=== PATIENT | female | born 1955 | race Caucasian/White ===

== ENCOUNTER 2022-04-03 10:06 | Emergency (ER) | payer MEDICARE, SELFPAY ==
[2022-04-03 10:14] VITALS: BP 149/75; PULSE 84; RESP 16; TEMP 36.3; O2SAT 97; BMI 19.2
--- NOTE | 2022-04-03 10:25 | ED.GENADULT ---
HPI - General Adult General Time Seen by Provider: 10:25 Date Seen: 04/03/22 Chief complaint: Rib Pain Stated complaint: Injured ribs Time Seen by Provider: 04/03/22 10:24 Source: patient, RN notes reviewed and old records reviewed Mode of arrival: ambulatory Limitations: no limitations History of Present Illness HPI narrative: Bella is a very pleasant 66-year-old female with a history of osteoporosis, diabetes, hypertension who comes to the emergency room for evaluation of left rib pain x1 week. Patient notes that she fell in her house and hit the back of her head as well as hit the counter over the left lateral ribcage. She has had pain since that time and actually has been increasing. She states that it hurts when she takes a deep breath both in her left-sided back and left ribcage. Not had a cough or hemoptysis. She has not noticed any blood in her urine. She has tried Tylenol but has not really helped. Movement and deep breathing definitely increases her discomfort. Related Data Home Medications Medication Instructions Recorded Confirmed alendronate 70 mg tablet 70 mg PO .weekly 04/03/22 04/03/22 amlodipine 10 mg tablet 10 mg PO DAILY 04/03/22 04/03/22 atorvastatin 10 mg tablet 10 mg PO DAILY 04/03/22 04/03/22 gabapentin 600 mg tablet 600 - 900 mg PO BID 04/03/22 04/03/22 insulin glargine 100 unit/mL 19 unit subcut HS 04/03/22 04/03/22 subcutaneous solution (Lantus U-100 Insulin) insulin regular human 100 unit/mL 7 - 11 unit subcut TID 04/03/22 04/03/22 injection solution (Novolin R Regular U-100 Insulin) lacosamide 100 mg tablet 100 mg PO BID 04/03/22 04/03/22 levetiracetam 750 mg tablet 750 mg PO BID 04/03/22 04/03/22 lisinopril 10 mg tablet 10 mg PO DAILY 04/03/22 04/03/22 metoprolol succinate 200 mg 200 mg PO DAILY 04/03/22 04/03/22 tablet,extended release 24 hr sertraline 50 mg tablet 50 mg PO DAILY 04/03/22 04/03/22 Allergies Allergy/AdvReac Type Severity Reaction Status Date / Time No Known Drug Allergies Allergy Verified 04/03/22 10:13 Review of Systems Const: Denies: fever or chills ENMT: Reports: ear pain; Denies: throat pain or neck pain Cardio: Reports: chest pain and shortness of breath with exertion (Due to pain with deep breathing); Denies: swelling of feet/ankles Resp: Reports: shortness of breath (Due to pain with deep breathing); Denies: cough, wheezing or coughing up blood GI: Denies: abdominal pain or nausea : Denies: blood in urine Musculo: Reports: back pain; Denies: neck pain or extremity pain Neuro: Denies: headache or numbness in extremities Allergy/Immuno: Denies: wheezing PFSH PFSH Social History Smoking Status: Current every day smoker Do you use any of these nicotine containing products: None Second hand tobacco smoke exposure: No How often do you have a drink containing alcohol: 2-3 times a week How often do you have six or more drinks on one occasion: Never AUDIT-C Alcohol total score: 3 Non-prescribed substance use: denies use service: No Exam Const: Vital Signs, click to edit/add: Vital Signs - 24 hr 04/03/22 10:14 Temperature 97.3 F L Pulse Rate [Pulse Oximeter] 84 Respiratory Rate 16 Blood Pressure [Ri ght Upper Arm] 149/75 H Pulse Oximetry 97 Oxygen Delivery Me thod Room Air Documenting provider has reviewed patient's vital signs: yes Common normals: no apparent distress, oriented x3 and no limitations General appearance: cooperative, well kempt and other (Preferring to remain still.) Nutritional appearance: thin HENMT: Common normals: normocephalic and external nose normal Head and scalp: normocephalic and scalp tenderness (Small nickel sized area of discomfort with mild edema left parietal scalp.) Face and sinus: normal facial exam Nose: external nose normal Eye: Common normals: PERRL General eye: normal appearance of both eyes Pupil: PERRL Neck & C-Spine: Common normals: full ROM General: normal visual inspection; no tenderness Chest: Chest: symmetrical chest wall rise and localized rib tenderness with anteroposterior compression (Left) Location: 5th rib, 6th rib, 7th rib and 8th rib Other: No obvious bruising of chest wall Resp: Common normals: normal respiratory effort and clear to auscultation bilaterally Effort & inspection: able to speak in complete sentences and symmetric chest movement Auscultation: clear to auscultation bilaterally Cardio: Common normals: regular rate and regular rhythm Rate: regular rate Rhythm: regular rhythm Other: Patient has tenderness noted over the posterior ribs at the inferior medial aspect of the scapula around to the lateral aspect and onto the left anterior chest wall. No evidence of ecchymosis. GI: Common normals: soft to palpation and non-tender Palpation: soft : Common normals: no CVA tenderness Bladder/kidney exam: no CVA tenderness Back & Pelvis: Common normals: no CVA tenderness, thoracic and lumbar spine normal to inspection and no thoracic nor lumbar tenderness Extremity: Common normals: normal to inspection Neuro: Common normals: oriented x3 and moves all extremities Psych: Common normals: speech normal Appearance: well kempt Attitude: calm Activity/motor behavior: appropriate eye contact Speech: normal speech Skin: Common normals: no rashes or lesions noted General skin exam: no rashes or lesions noted Course Course Hospital Course: Will order chest and rib x-rays Reevaluation(s) Reevaluation #1: Patient is noted to be sleeping when I enter the room. She states that this is the most comfortable she has been. She was not given any pain medications while here. Vital Signs Vital signs: Initial Vital Signs Temperature 97.3 F L 04/03/22 10:14 Temperature Source Temporal Artery Scan 04/03/22 10:14 Pulse Rate 84 04/03/22 10:14 Respiratory Rate 16 04/03/22 10:14 Blood Pressure 149/75 H 04/03/22 10:14 Blood Pressure Mean 99 04/03/22 10:14 Blood Pressure Position Sitting 04/03/22 10:14 Pulse Oximetry 97 04/03/22 10:14 Oxygen Delivery Method 04/03/22 10:14 Vital Signs Temperature 97.3 F L 04/03/22 10:14 Pulse Rate 84 04/03/22 10:14 Respiratory Rate 16 04/03/22 10:14 Blood Pressure 149/75 H 04/03/22 10:14 Pulse Oximetry 97 04/03/22 10:14 Oxygen Delivery Method 04/03/22 10:14 Temperature 97.3 F L 04/03/22 10:14 Pulse Rate 84 04/03/22 10:14 Respiratory Rate 16 04/03/22 10:14 Blood Pressure 149/75 H 04/03/22 10:14 Pulse Oximetry 97 04/03/22 10:14 Oxygen Delivery Method 04/03/22 10:14 Medical Decision Making MDM Narrative Medical decision making narrative: 1. Left rib injury-patient is noted to have no evidence or fracture. No evidence of underlying pneumothorax. I do explain to patient that plain films often miss a subtle nondisplaced rib fracture. However, this will not change our treatment as patient has no evidence of hypoxia, pneumothorax, underlying pneumonia. Patient denies a history of kidney problems. We will treat with ibuprofen 400 mg every 8 hours as needed for discomfort. For pain not relieved by ibuprofen she may use Vicodin sparingly. [place] 10/3250 tablet p.o. q.4-6 hours p.r.n. 12. Via [employer] meds with no refills. I did explain that this is a constipating medication and patient should use stool softener while using this medicine. It is also sedating and should not be used when driving or if using alcohol. If patient has ongoing symptoms I would ask her to follow up with her primary MD. She may need to undergo CT of the ribs. For onset of new symptoms return to the emergency room. 2. Disposition- home. Discussed breathing exercises with patient using a pillow for splinting. Return as needed. Medical Records Medical records reviewed: Yes I reviewed the patient's medical records Imaging Data Chest x-ray: Attestation: I have reviewed the pertinent imaging results. My impression: No evidence of fracture Radiologist's impression: No evidence of fracture involving the left ribcage. No pneumothorax or pleural effusion. Discharge Plan Discharge Clinical Impression: Rib contusion Patient Disposition: Home, Self-Care Condition: Improved Additional Instructions: Suggest the use of ibuprofen 400 mg every 8 hours as needed for discomfort. You may add [place] sparingly for continued pain. It is important that you practice deep breathing exercises. Use a pillow to help splint the left side of your ribcage. Take deep breaths at the top of every hour while awake. Follow-up with your primary MD if you are not improving. You may need a CT scan of the chest if continued symptoms. You may have a fracture that we are not able to see on the films today. At this time that fracture would not change our treatment plan. Return to the emergency room for worsening symptoms. Prescriptions: No Action alendronate 70 mg tablet 70 mg PO .weekly Label Comments: TAKE 1 TABLET BY MOUTH 1 TIME A WEEK IN THE MORNIGN ON AN EMPTY STOMACH AND WITH A FULL GLASS OF WATER. DO NOT LIE DOWN FOR 1 HOUR. amlodipine 10 mg tablet 10 mg PO DAILY atorvastatin 10 mg tablet 10 mg PO DAILY gabapentin 600 mg tablet 600 - 900 mg PO BID Label Comments: TAKE 1.5 TABLET BY MOUTH AT BEDTIME AND TAKE 1 TABLET BY MOUTH EVERY MORNING insulin glargine [Lantus U-100 Insulin] 100 unit/mL solution 19 unit SUBCUT HS Label Comments: ADMINISTER 19 UNITS UNDER THE SKIN AT BEDTIME Novolin R Regular U-100 Insuln 100 unit/mL solution 7 - 11 unit subcut TID lacosamide 100 mg tablet 100 mg PO BID levetiracetam 750 mg tablet 750 mg PO BID lisinopril 10 mg tablet 10 mg PO DAILY metoprolol succinate 200 mg tablet extended release 24 hr 200 mg PO DAILY sertraline 50 mg tablet 50 mg PO DAILY Follow Up/Referrals: David Sparks MD [Primary Care Provider] - Stand Alone Forms: [employer] Info Instructions
--- NOTE | 2022-04-03 10:37 | CRLHL7_ITS ---
For Patients: As a result of the Cures Act, medical imaging exams and procedure reports are released immediately into your electronic medical record. You may view this report before your referring provider. If you have questions, please contact your health care provider. INDICATION: Patient fell; pain left ribcage. Comparison: None. TECHNIQUE: Three view study chest and left rib cage detail. Findings: No evidence of fracture involving the left ribcage. No pneumothorax or pleural effusion. Dictated by Pari France MD @ 04/03/2022 12:07:06 PM (Electronically Signed)
--- OUTSIDE RECORDS SUMMARY | 2022-04-03 11:07 | XMS_ITS | Encounter Summary ---
:1955 Author Organization [facility] Address [address] [place] [address] Care Team Providers Name Role Phone Elsewhere, Pcp Primary Care Provider Unavailable Reason for Visit Auth/Cert Specialty Diagnoses / Procedures Referred By Contact Refer red To Contact Diagnoses Fracture Radius Colles Closed Initial Right Fracture Radius Colles Closed Initial Right [S52.531A] Procedures [facility] TX RDL & ULNAR FX WO MANIP [facility] TX RDL & ULNAR FX W MANIP VA OPN TX RDL&ULN FX W FIX RAD/ULN VA OPN TX RDL&ULN FX W FIX RAD&ULN VA OPN TX CARPAL SCPHD FX W FIX OPEN REDUCTION INTERNAL FIXATION WRIST-Right Referral ID Status Reason Start Date Expiration Date Visits Requ ested Visits Authorized [id number] 1 1 Encounter Details Date Type Department Care Team Description 05/26/2021 Anesthesia Event [facility] MAIN OR Lorenza Petersen M.D. [address] [place] [address] [address] [place] [phone] (Wo rk) Anesthesia Record Procedure Summary Procedure Name Responsible Anesthesia Start Anesthesia Stop Time Anesthesiologist Time OPEN REDUCTION Lorenza Petersen M.D. 05/26/21 1317 05/26/21 14 50 INTERNAL FIXATION WRIST-Right (Right: Wrist) Events Date Time Event Comment 05/26/2021 1159 1317 An Start Machine/Equipmen t Checked Infection Precautions Foll owed Procedure/Site Verified NPO Sta tus Verified Supine Standard ASA Mon itors Applied 1328 An Pause 1347 An Resume 1351 Turnover to Proceduralist 1402 Proc Start 1403 An Tourn Inflated 250 mm Hg R up per arm 1443 An Tourn Deflated 41 minutes 1444 Turnover to ANE Staff 1446 an stop data 1447 Proc Fin 1450 An End I completed my h andoff to the receiving staff during [facility] we 1. Identified the patient 2. Ident ified the responsible provider 3. Revi ewed the pertinent medical history 4. Discu ssed the surgical course 5. Reviewed intra-o p anesthesia management and issues during an esthesia 6. Set expectations for post-procedure period 7. Allowed opportun ity for questions and acknowledgement of understanding. Name Total midazolam 1 mg/mL injection 2 mg fentaNYL PF injection 50 mcg/mL 50 mcg propofol 10 mg/mL infusion 131.93 mg ropivacaine PF 0.75% injection 14 mL ceFAZolin injection 2,000 mg (ANCEF) 2 g ondansetron PF 4 mg/2 mL injection 4 mg lactated ringers 900 mL Agents No agents on file. Blood No blood administrations on file. Lines, Drains, and Airways Type Details Placement Removal Wound 05/26/21; 1426; Wrist; 05/26/21 1426 by Anterior, Right; Jazmyne Suresh RTamN. strips, 4x4s, webril, plaster splint, tano Peripheral IV Placement Date: 05/26/21; 05/26/21 1120 by 05/26 1550 by Placement Time: 1120; Jeannie Guerrier R.N. Lindell, Glenda R, Catheter Size: 20 G; R.N. Orientation: Anterior, Left; Location: Hand; Site Prep: Chlorhexidine (Preferred); Technique: Anatomical landmarks; Insertion Attempts: 1; Removal Date: 05/26/21; Removal Time: 1550; Removal Reason: Completion of therapy documented in this encounter Social History Tobacco Use Types Packs/Day Years Used Date Smoking Tobacco: Every Day Cigarettes 0.5 Smokeless Tobacco: Never Alcohol Use Standard Drinks/Week Comments Yes 0 (1 standard drink = 0.6 oz pure alcoho l) occas Alcohol Habits Answer Date Recorded How often do you have a drink containing alcohol? Not asked How many drinks containing alcohol do you have on a typical Not asked day when you are drinking? How often do you have six or more drinks on one occasion? No t asked Comment: occas 05/26/2021 Sex Assigned at Date Recorded Not on file documented as of this encounter OR Notes Anesthesia Postprocedure Evaluation - Jak Josue APRN, CRNA, D.N.P. - 05/26/2021 2:53 PMCST Patient: Bella Jones Procedure Summary Date: 05/26/21 Room / Location: [address] 01 [facility] / [facility] - GI Anesthesia Start: 1317 Anesthesia Stop: 1450 Procedure: OPEN REDUCTION INTERNAL FIXATION WRIST-Right (Right Wrist) Diagnosis: Fracture Radius Colles Closed Initial Right (Fracture Radius Colles Closed Initial Right [S52.531A]) Surgeons: Jorden Tineo M.D. Responsible Provider: Lorenza Petersen M.D. Anesthesia Type: regional ASA Status: 3 Anesthesia Type: regional Last vitals Vitals Value Taken Time BP Temp Pulse Resp SpO2 Please reference Vitals flowsheet for most recent vital signs. Anesthesia Post Evaluation Patient Disposition: dismissal Cardiovascular status: hemodynamics (HR & BP) acceptable Respiratory status: patent airway with spontaneous effort Temperature: normothermic Oxygen requirements: room air Level of consciousness: awake Pain score: pain adequately controlled and/or at baseline Post Op nausea/vomiting: none Hydration status: euvolemic HER MACHINE OPERATOR Anesthesia Procedure Notes - Ulisses Posada APRN, CRNA, R.N. - 05/26/2021 1:35 PM CSTAssociated Order(s): Regional Block Regional Block Date/Time: 05/26/2021 1:35 PM Performed by: Ulisses Posada APRN, CRNA, R.N. Authorized by: Ulisses Posada APRN, CRNA, R.N. Location: Pre Op / PACU PROCEDURE DETAILS: Block Indication: primary anesthetic Block Type - Upper extremity: infraclavicular Positioning: supine Laterality: right Block technique: ultrasound guided Ultrasound image guidance used to localize target, identify at risk structures, and dynamically usedto direct therapy to the target. Procedure was performed under sterile conditions.Image(s) acquired and saved Injection technique: single injection Needle type: echogenic Gauge: 20G Length: 10 Test dose: no test dose given Incremental injection of local anesthetic with aspiration every:5cc Pain with needle advancement or injection of local anesthetic: no Injected Medications: Injection(s), anesthetic agent(s) and/or steroid; See [facility] UNIVERSAL PROTOCOL All relevant documentation and testing were reviewed and available. All required blood products, implants, devices and or special equipment were made available as applicable. Pre-procedure verificationwas conducted and the correct site was marked if required. A fire risk assessment was done as applicable. The procedural time-out was conducted prior to performing the procedure and confirmed in a procedural pause. PRE-PROCEDURE DETAILS: Appropriate hand hygiene, gown, cap, mask, protective eyewear, sterile gloves, skin preparation, sterile drape, and strict aseptic technique were utilized as applicable for the procedure.: yes Skin prep: chlorhexidine / alcohol SEDATION / ANESTHESIA Anesthesia method: local infiltration Local infiltrate type: see [facility] for dose POST-PROCEDURE DETAILS: Procedure completed successfully: successful procedure Other complications: none ATTESTATION STATEMENT HER MACHINE OPERATOR Anesthesia Preprocedure Evaluation - Lorenza Petersen M.D. - 05/26/2021 11:58 AM CST Preprocedure Anesthesia & H&P Assessment Procedure Summary Date/Time: 05/26/21 1200 Procedure: OPEN REDUCTION INTERNAL FIXATION WRIST-Right (Right ) Diagnosis: Fracture Radius Colles Closed Initial Right [S52.531A] Pre-op diagnosis: Fracture Radius Colles Closed Initial Right [S52.531A] Location: OR 02 [facility] 401 / [facility] - GI Surgeons: Jorden Tineo M.D. Pertinent components of the patient's history including current problem list, medical history, surgical history, family history, social history, medications and allergies were reviewed. Present illnessand pre-op diagnosis were confirmed. The planned surgery / procedure was verified with the patient /legal guardian. The patient's general health condition remains unchanged RELEVANT COMORBID CONDITIONS CV (+) Hypertension NOS ENDO (+) Diabetes Mellitus Type 2 (HCC) GENETICS (+) Diabetes Mellitus Type 2 (HCC) Other (+) Fracture Radius Colles Closed Initial Right EKG- NSR, Left BBB- no previous EKG to compare. Urgent case, asymptomatic OBJECTIVE PHYSICAL EXAMINATION Airway (HEENT) Mallampati: II TM Distance: >3 FB Neck ROM: Limited Mouth Opening: >3 cm Upper Lip Bite Test Class: II Cardiovascular Rhythm: Regular Rate: Normal Cardiovascular Assessment: cardiovascular normal Functional Capacity: >4 METS Pulmonary Pulmonary Assessment: Clear General / Constitutional Constitutional Assessment: Normal General State of Health:: healthy appearing and calm Neurological Neurologic Assessment:??alert Dental Dental Assessment: dentition intact ASSESSMENT / PLAN ANESTHESIA PLAN ASA: 3 Anesthesia Plan: regional Patient seen and allergies reviewed, anesthesia plan and risks discussed directly with patient /legal guardian or through an vacuum closing machine operator. The use of blood products not discussed Approval to Proceed: approved for anesthesia HER MACHINE OPERATOR documented in this encounter Plan of Treatment Not on filedocumented as of this encounter Procedures Procedure Name Priority Date/Time Associated Comments Diagnosis ANESTHESIA REGIONAL Routine 05/26/2021 1:35 PM Re sults for this BLOCK CRUSHER MACHINE OPERATOR procedure are i n the results section. documented in this encounter Results Regional Block (05/26/2021 1:35 PM CRUSHER MACHINE OPERATOR) Narrative Ulisses Posada APRN, CRNA, R.N. - 05/04 1:35 PM CRUSHER MACHINE OPERATOR Ulisses Posada APRN, CRNA, R.N. ? 05/26/2021 ??1:35 PM Regional Block Date/Time: 05/26/2021 1:35 PM Performed by: Ulisses Posada APRN, CRN A, R.N. Authorized by: Ulisses Posada APRN, CR NA, R.N. Location: Pre Op / PACU PROCEDURE DETAILS: Block Indication: primary anesthetic ?? Block Type - Upper extremity: infraclavi cular Positioning: supine ?? Laterality: right Block technique: ultrasound guided ?? Ultrasound image guidance used to locali ze target, identify at risk structures, and dynamically used to dire ct therapy to the target. Procedure was performed under sterile co nditions.Image(s) acquired and saved Injection technique: single injection Needle type: echogenic Gauge: 20G Length: 10 Test dose: no test dose given ?? Incremental injection of local anestheti c with aspiration every:5cc Pain with needle advancement or injectio n of local anesthetic: no ?? Injected Medications: Injection(s), anes thetic agent(s) and/or steroid; See [facility] UNIVERSAL PROTOCOL All relevant documentation and testing w ere reviewed and available. All required blood products, implants, devic es and or special equipment were made available as applicable. Pre-proced ure verification was conducted and the correct site was marked if required. A fire risk assessment was done as applicable. The procedural time-out w as conducted prior to performing the procedure and confirmed in a procedu ral pause. PRE-PROCEDURE DETAILS: ?? Appropriate hand hygiene, gown, cap, mas k, protective eyewear, sterile gloves, skin preparation, sterile drape, and strict aseptic technique were utilized as applicable for the procedure .: yes ?? Skin prep: chlorhexidine / alcohol SEDATION / ANESTHESIA Anesthesia method: local infiltration Local infiltrate type: see MAR for dose POST-PROCEDURE DETAILS: Procedure completed successfully: succes sful procedure Other complications: none ATTESTATION STATEMENT Ulisses Posada APRN, MICROBIOLOGY SUPERVISOR, R.N. PROCEDURE/MINOR SURGIC AL ORDERABLES documented in this encounter Visit Diagnoses Not on filedocumented in this encounter Administered Medications Inactive Administered Medications - up to 3 most recent administrations Medication Order MAR Action Action Date Dose Rate Site ceFAZolin injection 2,000 mg (ANCEF) Given 05/26/2021 1:59 PM CRUSHER MACHINE OPERATOR 2 g 2,000 mg (rounded from 1,175 mg = 25 mg/kg ? 47 kg), intravenous, Once, On Mon05/26/21 at 1045, For 1 dose, Intra-Op, Preoperatively within 1 hour prior to surgical incision If needed, reconstitute vial per package insert instructions. See IVAG for administration guidelines. , Drug Monitoring Program: Pharmacist to adjust medication dosing based on indication and drug clearance factors., Indications: Prophylaxis, surgical fentaNYL injection (SUBLIMAZE) Given 05/26/2021 1:20 PM CRUSHER MACHINE OPERATOR 50 mcg intravenous, As needed, Starting on Mon05/26/21 at 1320, Anesthesia Intra-op lactated ringers Restarted 05/26/2021 1:47 PM CRUSHER MACHINE OPERATOR 20 mL/hr, intravenous, Continuous, Starting on Mon05/26/21 at 1045 Rate/Dose Verify 05/26/2021 1:17 PM CRUSHER MACHINE OPERATOR 20 mL/hr New Bag 05/26/2021 11:24 AM CRUSHER MACHINE OPERATOR 20 mL/hr 20 mL/hr midazolam (PF) injection (VERSED) Given 05/26/2021 1:20 PM CRUSHER MACHINE OPERATOR 2 mg intravenous, As needed, Starting on Mon05/26/21 at 1320, Anesthesia Intra-op ondansetron (PF) injection (ZOFRAN) Given 05/26/2021 1:52 PM CRUSHER MACHINE OPERATOR 4 mg intravenous, As needed, Starting on Mon05/26/21 at 1352, Anesthesia Intra-op propofol 10 mg/mL infusion Rate/Dose 05/26/2021 2:24 50 mcg/kg/min 1 4.34 (DIPRIVAN) Change PM CRUSHER MACHINE OPERATOR mL/hr intravenous, Continuous Infusion: Per Instructions PRN, Starting on Mon05/26/21 at 1352, Anesthesia Intra-op Rate/Dose Change 05/26/2021 2:10 PM CRUSHER MACHINE OPERATOR 65 mcg/kg/min 18.642 mL/hr New Bag 05/26/2021 1:52 PM CRUSHER MACHINE OPERATOR 75 mcg/kg/min 21.51 mL/hr ropivacaine (PF) 7.5 mg/mL (0.75 %) injection Given 1:23 PM CRUSHER MACHINE OPERATOR 14 mL (NAROPIN) infiltration, As needed, Starting on Mon05/26/21 at 1323, Anesthesia Intra-op documented in this encounter Care Teams Language Pathologist Relationship Specialty Start Date End Date Elsewhere, Pcp PCP - General Family Medicine 03/11/21 documented as of this encounter
--- OUTSIDE RECORDS SUMMARY | 2022-04-03 11:07 | XMS_ITS | Encounter Summary ---
:1955 Author Organization [facility] Address [address] [place] [address] Care Team Providers Name Role Phone Elsewhere, Pcp Primary Care Provider Unavailable Encounter Details Date Type Department Care Team Description 06/09/2021 Hospital Encounter Department of Jenn Roa Fract ure [facility] [place] [place] [facility] [place] [address] [facility] Initial Right [address] [place] [phone] Social History Tobacco Use Types Packs/Day Years [...] on file documented as of this encounter Medications at Time of Discharge Medication Sig Dispensed Refills Start Date End Date alendronate (FOSAMAX) 70 TAKE 1 TABLET BY MOUTH 0 08/20/2018 mg tablet 1 TIME A WEEK IN THE MORNING ON AN EMPTY STOMACH AND WITH FULL GLASS OF WATER. DO NOT LIE DOWN FOR 1 HOUR amLODIPine (NORVASC) 10 Take 10 mg by mouth. 0 mg tablet atenolol (TENORMIN) 100 Take 1 tablet by mouth 0 05/31/2012 mg tablet daily. atorvastatin (LIPITOR) Take 10 mg by mouth. 0 10 mg tablet blood sugar diagnostic TEST FOUR TIMES DAILY 0 (CONTOUR TEST STRIPS) strips calcium Take by mouth. 0 01/21/2008 carbonate-vitamin D3 1,500 mg (600 mg calcium)-200 unit per tablet gabapentin (NEURONTIN) TAKE 1 AND ONE-HALF 0 08/03 600 mg tablet TABLETS BY MOUTH AT BEDTIME AND 1 TABLET EVERY MORNING insulin glargine (LANTUS Inject 17 Units under 0 08/20/2018 U-100 INSULIN) 100 the skin. unit/mL injection insulin regular (NovoLIN Take 7-11 units 0 2018 R Regular U-100 Insuln) subcutaneous three 100 unit/mL injection times daily insulin syringe-needle For administering 0 2018 U-100 0.3 mL 31 gauge x insulin at home. 11/15 syringe lacosamide (VIMPAT) 100 Take 100 mg by mouth 2 0 mg tablet (two) times a day. levETIRAcetam (KEPPRA) Take 250 mg by mouth 2 0 0 09/28/2013 250 mg tablet (two) times a day. levETIRAcetam (KEPPRA) Take 750 mg by mouth. 0 750 mg tablet lisinopril Take 10 mg by mouth. 0 01/23/2018 (PRINIVIL,ZESTRIL) 20 mg tablet metoprolol succinate Take 200 mg by mouth. 0 10/02 (TOPROL-XL) 200 mg 24 hr tablet ondansetron ODT Take 1 tablet (4 mg 10 tablet 0 05/27/2021 (ZOFRAN-ODT) 4 mg total) by mouth every disintegrating tablet 12 (twelve) hours. oxyCODONE (ROXICODONE) 5 Take 1 tablet (5 mg 20 tablet 0 mg immediate release total) by mouth every 6 tabletIndications: (six) hours as needed Prolonged Acute for pain Indication: Pain/Traumatic Injury Prolonged Acute Pain/Traumatic Injury. sertraline (ZOLOFT) 50 Take 50 mg by mouth. 0 mg tablet traZODone (DESYREL) 50 TAKE 2 TABLETS BY MOUTH 0 10/23/2018 mg tablet AT BEDTIME documented as of this encounter Plan of Treatment Not on filedocumented as of this encounter Procedures Procedure Name Priority Date/Time Associated Comments Diagnosis DX WRIST RIGHT 3+ RAD - Routine 06/09/2021 1:11 Fracture Radius Res ults for this VIEWS (most inpatients PM BUILDING PRINCIPAL Colles Closed procedure are in and all Initial Right the results outpatients) section. documented in this encounter Results DX Wrist Right 3+ Views (06/09/2021 1:11 PM BUILDING PRINCIPAL) Anatomical Region Laterality Modality Upper Extremity, Wrist, Musculoskeletal RST LOS, Right Digital Radiography Musculoskeletal ARZ LOS, Muskuloskeletal FLA LOS Specimen (Source) Anatomical Collection Method Collection Time Re ceived Time Location / / Volume Laterality 06/09/2021 1:13 PM BUILDING PRINCIPAL Impressions 06/09/2021 1:17 PM BUILDING PRINCIPAL Volar plate and screw fixation across a comminuted minimally displaced transverse fracture of the dis leonides right radial metaphysis which extends into the distal radioulnar joint . No hardware failure. Fracture line is still visible. Displaced ulnar styloid f racture. Demineralization. Changes of ulnolunate abutment. Soft tissue swellin g right wrist. Narrative 06/09/2021 1:17 PM BUILDING PRINCIPAL EXAM: ??DX WRIST RIGHT 3+ VIEWS Procedure Note Ulisses Lane M.D. - 06/09/2021Forma tting of this note might be different from the original. EXAM: DX WRIST RIGHT 3+ VIEWS IMPRESSION: Volar plate and screw fixation across a comminuted minimally displaced transverse fracture of the dis leonides right radial metaphysis which extends into the distal radioulnar joint . No hardware failure. Fracture line is still visible. Displaced ulnar styloid f racture. Demineralization. Changes of ulnolunate abutment. Soft tissue swellin g right wrist. [facility] RIGOBERTO documented in this encounter Visit Diagnoses Diagnosis Fracture Radius Colles Closed Initial Ri ght documented in this encounter Care Teams Freight Tallier Relationship Specialty Start Date End Date Elsewhere, Pcp PCP - General Family Medicine 03/11/21 documented as of this encounter
--- OUTSIDE RECORDS SUMMARY | 2022-04-03 11:07 | XMS_ITS | Encounter Summary ---
:1955 Author Organization [facility] Address [address] [place] [id number] Care Team Providers Name Role Phone Elsewhere, Pcp Primary Care Provider Unavailable Reason for Visit Physical Therapy (Routine) - Authorized Specialty Diagnoses / Procedures Referred By Contact Refer red To Contact Diagnoses Fracture Radius Colles Closed Initial [facility] Jenn Roa, P.A.-C. Formerly [facility] Procedures PT Evaluate and treat [address] [place] [phone] Referral ID Status Reason Start Date Expiration Date Visits V isits Requested Authorized [id number] Authorized 07/07/2021 07/07/2022 99 99 Encounter Details Date Type Department Care Team Description 07/23/2021 Comprehensive Visit Department of Jenn Roa, P.A.-C. [address] [place] [phone] Fracture Radius Rehabilitation Ama Grady, O.TTam Colles Closed Services in [address] [phone] Social History Tobacco Use Types Packs/Day Years [...] on file documented as of this encounter Consult Notes Ama Grady O.T. - 07/23/2021 11:00 AM CST Occupational Therapy Outpatient Evaluation/Treatment By co-signing this note, the provider certifies the therapy being provided to this patient is reasonable and necessary for the diagnosis or treatment of this patient. SUBJECTIVE Patient's Name: Bella Jones Referring Provider: Jenn Roa P.A.-C. Visit Diagnosis: 1. Fracture Radius Colles Closed Initial Right Reason for Referral: Skilled OT necessary to decreased wrist range and strength following wrist fracture s/p ORIF on 05/26 Onset Date: 05/23/2021 Payor: MEDICARE / Plan: MEDICARE A AND B / Product Type: Medicare / Visit Count: Visit count could not be calculated. Make sure you are using a visit which is associated with an episode. PERTINENT MEDICAL / SURGICAL HISTORY: Patient Active Problem List Diagnosis ??? Fracture Radius Colles Closed Initial Right ??? Hypertension NOS ??? Diabetes Mellitus Type 2 (HCC) Past Surgical History: Procedure Laterality Date ??? CATARACT EXTRACTION AND INSERTION OF INTRAOCULAR LENS N/A 05/31/2012 Cataract extraction and insertion of intraocular lens ??? CATARACT EXTRACTION AND INSERTION OF INTRAOCULAR LENS N/A 06/14/2012 Cataract extraction and insertion of intraocular lens ??? OPEN REDUCTION INTERNAL FIXATION WRIST Right 05/26/2021 Procedure: OPEN REDUCTION INTERNAL FIXATION WRIST-Right; Surgeon: Jorden Tineo M.D.; Location: [facility] OR Bella Jones is a 66 y.o. female who presents to outpatient occupational therapy for evaluation. Her symptoms consist of: 1. R wrist pain and decreased ROM Overall she reports her status is improving . History of Present Illness:She had fall tripping up a stair resulting in R distal radius fracture and avulsion fracture of ulnar styloid with ORIF repair on 05/26 Previous Treatments: no previous treatment Prior Function/Occupational Profile: Patient is retired Family/Caregiver Present: No Patient goals:to regain use of wrist Patient Comments: it only hurts when I move it certain ways Precautions Other Precautions: avoid heavy lifting and weight bearing Contact monitoring: PPE used during therapy: Therapist was wearing the following PPE throughout entire session: surgicalmask and eye protection OBJECTIVE REVIEW OF SYSTEMS PHYSICAL EXAM Pain: No complaints at rest; she reports with certain motions it can increase to 5/10 but doesn't stay there Ortho Exam Her right wrist flexion is 52 degrees Her right wrist extension is 52 degrees Her right ulnar deviation is 3 degrees Her right radial deviation is 5 degrees R rural sociologist is 13# and L rural sociologist is 32# Education and completion of active wrist exercises including wrist flex/ext, R/U dev, and pron/sup with cues to hold at end range and passively stretch using her L hand. She was also given red theraputty and blue foam for hand strengthening. She is hypersensitive over R scar area so educated and completed desensitization techniques. Talked through her efforts to wean out of brace. At this time, recommend she uses when being more active like cooking or cleaning but not at other times while awake. She tried not wearing last night tobed and says she was up 15 times and found it difficult to sleep. Recommend she starts the night without it and keeps next to her bed so she can put it on if it wakes her up but feel she needs to continue to wean. Home Exercise Program/Education: putty and foam hand strengthening, A/AAROM for R wrist, desensitization for R forearm Assessment Clinical Impression: Ms. Jones presents to occupational therapy with signs and symptoms consistent with R wrist weakness following fracture Impairments: She exhibits decreased active range of motion and weakness and pain with use. She is highly sensitive over scar area Rehab Potential: Ms. Jones has excellent potential to achieve established occupational therapy goals within the time frame outlined below, provided she actively participates in her occupational therapy treatment plan and home program. Occupational Profile and History review: Brief Performance Deficits: 1 - 3 performance deficits Evaluation Complexity: Low Functional Goals and Timeframes: OT Goal #1: Patient will increase wrist ROM by 10 degrees to increase functional use with self cares OT Goal #1 Date: 08/20/21 OT Goal #2: Patient will increase hand strength by 10# to increase functional use with self cares OT Goal #2 Date: 08/20/21 Plan Ms. Jones was educated regarding evaluative findings, diagnosis, prognosis, potential risks and benefits of rehabilitation interventions. A collaborative effort was used to establish goals and plan of care. She was informed of her right to make decisions regarding her care, including refusal of examination or treatment or selection of services from another provider if desired. The treatment plan may be progressed or modified based upon her response to treatment. Treatment Plan: Start of Plan of Care: 07/23/2021 OT Next Certification Date: 10/21/21 OT Frequency: 1 time per week Treatment interventions may include: Treatment Interventions: Therapeutic exercise, Manual therapy. Plan for next session: assess range and strength and increase HEP challenge as able. Plan: Plan of care initiated Occupational Therapy Attestation Statement: Patient agrees with the plan of care and goals. Time Spent with Patient OT Eval - Low Complexity : 26 min Therapeutic Exercise (min): 21 min Time Calculation Total Timed Units (min): 21 min Total Treatment Time (min): 47 [address] FORM MAKER documented in this encounter Plan of Treatment Not on filedocumented as of this encounter Visit Diagnoses Diagnosis Fracture Radius Colles Closed Initial Ri ght documented in this encounter Care Teams Hay Buckler Relationship Specialty Start Date End Date Elsewhere, Pcp PCP - General Family Medicine 03/11/21 documented as of this encounter
--- OUTSIDE RECORDS SUMMARY | 2022-04-03 11:07 | XMS_ITS | Encounter Summary ---
:1955 Author Organization [facility] Address [address] [place] [address] Care Team Providers Name Role Phone Elsewhere, Pcp Primary Care Provider Unavailable Reason for Visit Auth/Cert Specialty Diagnoses / Procedures Referred By Contact Refer red To Contact Diagnoses Fracture Radius Colles Closed Initial Right Fracture Radius Colles Closed Initial Right [S52.531A] Procedures [place] CLSD TX RDL & ULNAR FX WO MANIP MI CLSD TX RDL & ULNAR FX W MANIP MI OPN TX RDL&ULN FX W FIX RAD/ULN MI OPN TX RDL&ULN FX W FIX RAD&ULN MI OPN TX CARPAL SCPHD FX W FIX OPEN REDUCTION INTERNAL FIXATION WRIST-Right Referral ID Status Reason Start Date Expiration Date Visits Requ ested Visits Authorized [id number] 1 1 Encounter Details Date Type Department Care Team Description 05/26/2021 Surgery [facility] MAIN OR Jorden Tineo, OPEN REDUCTION INTERNAL [address]URICE M.D. [place] [phone] [phone] [place] [address] (Wo rk) Social History Tobacco Use Types Packs/Day Years [...] on file documented as of this encounter Last Filed Vital Signs Vital Sign Reading Time Taken Comments Blood Pressure 137/68 05/26/2021 11:11 AM FILL PLANT OPERATOR Pulse 64 05/26/2021 11:11 AM FILL PLANT OPERATOR Temperature 36.1 ??C (97 ??F) 05/26/2021 11:11 AM FILL PLANT OPERATOR Respiratory Rate 16 05/26/2021 11:11 AM FILL PLANT OPERATOR Oxygen Saturation 100% 05/26/2021 11:11 AM FILL PLANT OPERATOR Inhaled Oxygen Concentration - - Weight 47.8 kg (105 lb 6.1 oz) 05/26/2021 11:11 AM FILL PLANT OPERATOR Height - - Body Mass Index 19.27 05/14/2021 4:46 PM FILL PLANT OPERATOR documented in this encounter Medications at Time of Discharge [...] 10/02 (TOPROL-XL) 200 mg 24 hr tablet oxyCODONE (ROXICODONE) 5 Take 1 tablet (5 [...] AT BEDTIME documented as of this encounter H&P Notes Jorden Tineo M.D. - 05/26/2021 12:04 PM CST INTERVAL HISTORY AND PHYSICAL PRE-PROCEDURE UPDATE H&P reviewed. The patient was examined and there are no significant changes to the H&P. The risks, benefits, and alternatives to the planned procedure were discussed in detail, including the risk of exposure to COVID-19 within the facility. All questions pertaining to the procedure and these risks were answered and the patient agreed to proceed. Jorden Tineo M.D. PLANT OPERATOR Source Note - Lorenza Petersen M.D. - 05/26/2021 11:58 AM FILL PLANT OPERATOR Preprocedure Anesthesia & H&P Assessment Procedure Summary Date/Time: 05/26/211199 Procedure: OPEN REDUCTION INTERNAL FIXATION WRIST-Right (Right ) Diagnosis: Fracture Radius Colles Closed Initial Right [S52.531A] Pre-op diagnosis: Fracture Radius Colles Closed Initial Right [S52.531A] Location: OR 02 [facility] 01 [facility] - GI Surgeons: Jorden Tineo M.D. Pertinent [...] (+) Fracture Radius Colles Closed Initial Right OBJECTIVE PHYSICAL EXAMINATION Airway (HEENT) Mallampati: II [...] with patient /legal guardian or through an certified court/medical interpreter. The use of blood products not discussed Approval to Proceed: approved for anesthesia PLANT OPERATOR documented in this encounter OR Notes Op Note - Jorden Tineo M.D. - 05/26/2021 2:33 PM CST PRE-OPERATIVE DIAGNOSIS Intra-articular 3-part right metaphyseal distal radius fracture. POST-OPERATIVE DIAGNOSIS Intra-articular 3-part right metaphyseal distal radius fracture. PROCEDURE: Open reduction internal fixation right 3-part distal radius fracture intra-articular. SURGEON: Jorden Tineo M.D. IMPLANTS: [employer] volar locking plate. FINDINGS The patient did have an intra-articular fracture that was treated with a volar locking plate to stabilization. COMPLICATIONS None. DESCRIPTION OF PROCEDURE Bella is a 65-year-old female, right-hand dominant, who had a fall about 10 days ago, sustaining a fracture to her right distal radius that was intra-articular and comminuted, 3 parts. This was treated with closed reduction. However, reduction still did showed dorsal metaphyseal comminution and some drift with continued angulation and impaction. Discussion was had with the patient about continued conservative management versus surgical intervention. After risks and benefits were discussed, she desired to proceed forward with a surgical procedure. The patient as identified in the preoperative holding area. All questions were answered. Her right wrist was marked with an indelible marking pen. Consent was reviewed and signed. She was brought back to the block area where Anesthesia performed a regional block. She was then brought back to the operating theater where she was placed supine on the operating room table with all bony prominences paddedappropriately. Monitored anesthesia care was performed. Antibiotics were administered per protocol. Right upper extremity was pre- prepped with chlorhexidine and alcohol and then prepped and draped in normal sterile fashion. A surgical time-out was done to verify correct patient, correct limb, and correct procedure. I was then able to examine the limb, elevate the tourniquet, and make a volar incision of the wrist over theFCR tendon. Carried this down through the subcutaneous tissue to identify the FCR. The FCR was then retracted ulnarly. The floor of the FCR tendon sheath was incised and the FPL was retracted ulnarly. At this juncture, I was able to take down the pronator off the radial border of the radius and elevate this with an elevator. At this juncture, I was able to identify the fracture, clean the fracture site out of the soft tissue, and ultimately reduce the fracture under fluoroscopic guidance. Upon reduction, I was able to place a standard width short volar locking plate onto the distal radius, held this in place with the oblong screw as well as a K- wire distally to make sure that this was positioned appropriately, both on the AP view as well as the lateral view. Once this was confirmed, I was able todrill and fill the proximal holes of the distal portion of the plate. All these screws were seen to be extra-articular on fluoroscopic guidance. We then drilled and filled the distal screws, again, allscrews being extra-articular. This will stabilize the fracture quite nicely and in nearly anatomic position. We then drilled and filled the proximal shaft screws with the 2.5 screws, and these screw heads seated down nicely, holding the plate in position. At this juncture, we were able to take our final images, making sure that none of the screws were long dorsally and make sure the plate was appropriately stabilizing the fracture under fluoro guidance. We then irrigated the incision with sterile oren ine, closed the subcutaneous tissue with 3-0 Vicryl interrupted, skin with 4-0 Monocryl and Steri-Strips. Adaptic, 4x4s, Webril, and a volar splint was applied. She was awakened from anesthesia and transferred to the PACU in stable condition. The tourniquet was deflated after the splint was applied. DISPOSITION: Patient will be discharged home as a same-day surgery patient. She will go home with oral pain medications, to ice and elevate for swelling, a sling for comfort. Okay to move the elbow as tolerated once the block wears off. No lifting, gripping, or grasping with the right upper extremity more than simple everyday activities. We will see her back in the clinic in approximately 10-14 days for splint removal, x-rays, and likely placement into a removable splint. TPR: [address] Job ID: [id number] PLANT OPERATOR Brief Op Note - Jorden Tineo M.D. - 05/26/2021 1:06 PM CST Pre-op Diagnosis Fracture Radius Colles Closed Initial Right Post-op Diagnosis Fracture Radius Colles Closed Initial Right ORIF right metaphyseal distal radius fracture Findings As expected. Complications None Jorden Tineo M.D. PLANT OPERATOR documented in this encounter Plan of Treatment Scheduled Referrals Name Type Priority Associated Order Schedule Diagnoses Orthopedic Surgery Outpatient Referral Routine Ex pected: Post Op (clinic) 06/09/2021 (Approximate), Expires: 05/26/2024 documented as of this encounter Procedures Procedure Name Priority Date/Time Associated Comments Diagnosis GLUCOSE POCT, B Routine 05/26/2021 3:37 Results f or this PM FILL PLANT OPERATOR procedure are i n the results section. FL FLUORO LESS RAD - Routine 05/26/2021 2:35 Fracture Radius Result s for this THAN 1 HOUR (most inpatients PM FILL PLANT OPERATOR Distal Other procedure a re in and all Closed Initial the results outpatients) Right section. GLUCOSE POCT, B Routine 05/26/2021 2:23 Results f or this PM FILL PLANT OPERATOR procedure are i n the results section. OPEN REDUCTION 05/26/2021 1:47 Fracture Radius INTERNAL FIXATION PM FILL PLANT OPERATOR Colles Closed WRIST Initial Right GLUCOSE POCT, B Routine 05/26/2021 1:13 Results f or this PM FILL PLANT OPERATOR procedure are i n the results section. GLUCOSE POCT, B Routine 05/26/2021 11:38 Results for this AM FILL PLANT OPERATOR procedure are i n the results section. documented in this encounter Results Glucose, POCT (05/26/2021 3:37 PM FILL PLANT OPERATOR) athologist Signature Glucose, POCT, 85 70 - 140 05/26/2021 [facility] B mg/dL 3:37 PM FILL PLANT OPERATOR Specimen Anatomical Collection Method Collection Time Receive d Time (Source) Location / / Volume Laterality Blood 05/26/2021 3:37 PM 3:48 FILL PLANT OPERATOR PM FILL PLANT OPERATOR Generic [facility] LAB POCT ORDERABLES-MANUAL Performing Organization Address City/State/ZIP Code Phon e Number [facility]- [address] [place] [address] [address] [place] [address] System in [place] [address] [place] [address] Fluoro Less Than 1 Hour (05/26/2021 2:35 PM FILL PLANT OPERATOR) Specimen (Source) Anatomical Location Collection Method / Collectio n Time Received Time / Laterality Volume Narrative 8000 [address] SEM[address] - 05/26/2021 2:39 PM FILL PLANT OPERATOR This exam does not require a radiologist review or interpretation. Please refer to the patient's medical record on this date for clinical details. Jorden Tineo M.D. IMG FLUOROSCOPY PROCEDURES Performing Organization Address City/State/ZIP Code Phon e Number [address] Glucose, POCT (05/26/2021 2:23 PM FILL PLANT OPERATOR) P athologist Signature Glucose, POCT, 78 70 - 140 05/26/2021 [facility] B mg/dL 2:23 PM FILL PLANT OPERATOR Specimen Anatomical Collection Method Collection Time Receive d Time (Source) Location / / Volume Laterality Blood 05/26/2021 2:23 PM 1 2:31 FILL PLANT OPERATOR PM FILL PLANT OPERATOR Generic [facility] POCT ORDERABLES-MANUAL Performing Organization Address City/State/ZIP Code Phon e Number [facility]- [address] [place], [place] [address] [facility] [place] [facility] [place] [address] System in [place] [address] Glucose, POCT (05/26/2021 1:13 PM FILL PLANT OPERATOR) athologist Signature Glucose, POCT, 89 70 - 140 05/26/2021 [facility] B mg/dL 1:13 PM FILL PLANT OPERATOR Specimen Anatomical Collection Method Collection Time Receive d Time (Source) Location / / Volume Laterality Blood 05/26/2021 1:13 PM 1 1:21 FILL PLANT OPERATOR PM FILL PLANT OPERATOR Generic [facility] LAB POCT ORDERABLES-MANUAL Performing Organization Address City/State/ZIP Code Phon e Number [facility]- [address] [place], [place] [address] [facility] [place] [facility] [place] [address] System in [place] [address] Glucose, POCT (05/26/2021 11:38 AM FILL PLANT OPERATOR) P athologist Signature Glucose, POCT, 121 70 - 140 05/26/2021 [facility] B mg/dL 11:38 AM FILL PLANT OPERATOR Specimen Anatomical Collection Method Collection Time Receive d Time (Source) Location / / Volume Laterality Blood 05/26/2021 11:38 05/26/2021 AM FILL PLANT OPERATOR 11:47 AM FILL PLANT OPERATOR Generic [facility] POCT ORDERABLES-MANUAL Performing Organization Address City/State/ZIP Code Phon e Number [facility]- [address] [place], [place] [address] [facility] [place] [facility] [place] [address] System in [place] [address] documented in this encounter Visit Diagnoses Diagnosis Fracture Radius Colles Closed Initial Ri ght - Primary Fracture Radius Distal Other Closed Init ial Right Fracture Radius Colles Closed Initial Ri ght documented in this encounter Admitting Diagnoses Diagnosis Fracture Radius Colles Closed Initial Ri ght documented in this encounter Administered Medications Inactive Administered Medications - up to 3 most recent administrations Medication Order MAR Action Action Date Dose Rate Site acetaminophen tablet 1,000 mg Given 05/26/2021 11:24 AM FILL PLANT OPERATOR 1,00 0 mg (TYLENOL) 1,000 mg, oral, Once, On Mon05/26/21 at 1045, For 1 dose, Pre-Op lactated ringers Restarted 05/26/2021 1:47 PM FILL PLANT OPERATOR 20 mL/hr, intravenous, Continuous, Starting on Mon05/26/21 at 1045 Rate/Dose Verify 05/26/2021 1:17 PM FILL PLANT OPERATOR 20 mL/hr New Bag 05/26/2021 11:24 AM FILL PLANT OPERATOR 20 mL/hr 20 mL/hr oxyCODONE IR tablet 10 mg (ROXICODONE) 10 mg, oral, Every 4 hours PRN, severe p ain or score 7-10 of 10, Starting on Mon05/26/21 at 1503, PACU & Post-Op, Second line therapy. If patient is greater than 7 after 2 hours, call service for new order. oxyCODONE IR tablet 5 mg (ROXICODONE) 5 mg, oral, Every 4 hours PRN, moderate pain or score 4-6 of 10, Starting on Mon05/26/21 at 1503, PACU & Post-Op, Second line therapy traMADoL tablet 100 mg (ULTRAM) 100 mg, oral, Every 6 hours PRN, severe pain or score 7-10 of 10, Starting on Mon05/26/21 at 1503, PACU & Post-Op, First line therapy o r for pain greater than comfort goal (not to exceed 400 mg in 24 hours). traMADoL tablet 50 mg (ULTRAM) 50 mg, oral, Every 6 hours PRN, moderate pain or score 4-6 of 10, Starting on Mon05/26/21 at 1503, PACU & Post-Op, First line therapy documented in this encounter Active and Recently Administered Medications Times are shown in FILL PLANT OPERATOR. Scheduled Medication Order 05/24/2021 05/25/2021 05/26/2021 acetaminophen tablet 1,000 mg (TYLENOL) (COMPLETED) 1124 (Given - Provider: Jeannie Guerrier R.N.) 1,000 mg, oral, Once, On Mon05/26/21 at 1045, For 1 dose, Pre-O p ceFAZolin injection 2,000 mg (ANCEF) (COMPLETED) 1359 (Given - Provider: Jak Josue APRN, CRNA, D.N.P.) 2,000 mg (rounded from 1,175 mg = 25 mg/ kg ? 47 kg), intravenous, Once, On Mon05/26/21 at 1045, For 1 dose, Intra-Op, Preoperatively within 1 hour prior to surgical incision If needed, reconstitute vi al per package insert instructions. See IVAG for administration guidelines. , Drug Monitoring Program: Pharmacist to adjust medication dosing based on indication and drug clearance factors., Indications: Prophylaxis, surgical lidocaine 10 mg/mL (1 %) injection 1 mL (XYLOCAINE) 1045 (Due) 1 mL, infiltration, Once, On Mon 1 at 1045, For 1 dose, Pre-Op, May admin up to 1 mL at the site of IV site if not allergic to lidocaine sodium chloride 0.9 % injection 3 mL 3 mL, intravenous, Every 12 hours schedu led, First dose on Mon05/26/21 at 2100, Pre-Op, Peripheral Intravenous Catheter and Rapid Infusion Catheter, when no infusion to maintain patency Continuous Medication Order 05/24/2021 05/25/2021 05/26/2021 lactated ringers 1124 (New Bag - Provider: Jeannie Guerrier RTamNTam)1317 (Rate/Dose Verify - Provider: Ulisses Posada APRN, CRNA, R.N.)1346 (Paused - Provider: Jak Josue APRN, CRNA, D.N.P. - Comment: Switch to gravity) 20 mL/hr, intravenous, Continuous, Starting on Mon05/26/21 at 1 045 1347 (Restarted - Provider: Jak Josue APRN, CRNA, D.N.P.)1435 (Anesthesia Volume Adjustment - Provider: Jak Josue APRN, CRNA, D.N.P.) lactated ringers 1550 (Stopped - Provider: Wilder DowellNTam) 20 mL/hr, intravenous, Continuous, Start ing on Mon05/26/21 at 1515, PACU & Post-Op, until tolerating oral diet PRN Medication Order 05/24/2021 05/25/2021 05/26/2021 HYDROmorphone injection 0.5 mg (DILAUDID) 0.5 mg, intravenous, Every 2 hour PRN, s evere pain or score 7-10 of 10, Starting on Mon05/26/21 at 1503, For 2 doses, PACU & Post-Op, May administer if pain is greater than 7 after scheduled and MI N regimen exhausted. If pain remains greater than 7, notify prim taiwo service. naloxone injection 0.2 mg 0.2 mg, intravenous, As needed, respirat ory depression, Starting on Mon05/26/21 at 1503, For RASS Score -4 or less, respiratory rate of less than 8 breaths/min. Notify provider/service and rapid response team (if available at institution). ondansetron (PF) injection 4 mg (ZOFRAN) 4 mg, intravenous, Every 6 hours PRN, na usea, vomiting, Starting on Mon05/26/21 at 1503, For 48 hours, PACU & Post-Op, Reassess for nausea or vomiting after at least 10 minutes. If nausea or vomiti ng persists administer next ordered anti emetic medications (order for antiemetic medication administration ondansetron then droperidol then promethazine). oxyCODONE IR tablet 10 mg (ROXICODONE)(Linked Group 1) 10 mg, oral, Every 4 hours PRN, severe p ain or score 7-10 of 10, Starting on Mon05/26/21 at 1503, PACU & Post-Op, Second line therapy. If patient is greater than 7 after 2 hours, call service for new order. oxyCODONE IR tablet 5 mg (ROXICODONE)(Linked Group 1) 5 mg, oral, Every 4 hours PRN, moderate pain or score 4-6 of 10, Starting on Mon05/26/21 at 1503, PACU & Post-Op, Second line therapy promethazine injection 6.25 mg (PHENERGAN) 6.25 mg, intravenous, Every 6 hours PRN, nausea, vomiting, Starting on Mon05/26/21 at 1503, For 48 hours, PACU & Post-Op, RASS must be -2 or higher to administer. Reassess for nausea/vomiting after at least 10 minutes. If nausea or vomit ing persists administer next ordered antiemetic medications (order for antiemetic medication administration ondansetron then droperidol then promethazine). sodium chloride 0.9 % injection 10 mL 10 mL, intravenous, As needed, line care , Starting on Mon05/26/21 at 1040, Pre- Op, Peripheral Intravenous Catheter and Rapid Infusion Catheter, prior to blood sampling, post blood transfusion or post blood sampling sodium chloride 0.9 % injection 3 mL 3 mL, intravenous, As needed, line care, Starting on Mon05/26/21 at 1040, Pre- Op, Prior to and following infusion and between multiple consecutive infusions: sodium chloride 0.9 % injection traMADoL tablet 100 mg (ULTRAM)(Linked Group 2) 100 mg, oral, Every 6 hours PRN, severe pain or score 7-10 of 10, Starting on Mon05/26/21 at 1503, PACU & Post-Op, First line therapy or for pain greater than comfort goal (not to exceed 400 mg in 24 hours). traMADoL tablet 50 mg (ULTRAM)(Linked Group 2) 50 mg, oral, Every 6 hours PRN, moderate pain or score 4-6 of 10, Starting on Mon05/26/21 at 1503, PACU & Post-Op, First line therapy Linked Groups Order Group 1: oxyCODONE IR tablet 5 mg (ROXICODONE)Jump to med 5 mg, oral, Every 4 hours PRN, moderate pain or score 4-6 of 10, Starting on Mon05/26/21 at 1503, PACU & Post-Op
Second line therapy
Or oxyCODONE IR tablet 10 mg (ROXICODONE)Jump to med 10 mg, oral, Every 4 hours PRN, severe p ain or score 7-10 of 10, Starting on Mon05/26/21 at 1503, PACU & Post-Op
Second line therapy. If patient is greater than 7 after 2 hours, call service for new order.
Group 2: traMADoL tablet 50 mg (ULTRAM)Jump to med 50 mg, oral, Every 6 hours PRN, moderate pain or score 4-6 of 10, Starting on Mon05/26/21 at 1503, PACU & Post-Op
First line therapy
Or traMADoL tablet 100 mg (ULTRAM)Jump to med 100 mg, oral, Every 6 hours PRN, severe pain or score 7-10 of 10, Starting on Mon05/26/21 at 1503, PACU & Post-Op
First line therapy or for pain greater than comfort goal (not to exceed 400 mg in 24 hours).
documented in this encounter Care Teams Family Centered Specialist Relationship Specialty Start Date End Date Elsewhere, Pcp PCP - General Family Medicine 03/11/21 documented as of this encounter
--- OUTSIDE RECORDS SUMMARY | 2022-04-03 11:07 | XMS_ITS | Encounter Summary ---
:1955 Author Organization [facility] Address [address] [place] [address] Care Team Providers Name Role Phone Elsewhere, Pcp Primary Care Provider Unavailable Reason for Visit Occupational Therapy (Routine) - Canceled Specialty Diagnoses / Procedures Referred By Contact Refer red To Contact Diagnoses Fracture Radius Colles Closed Initial Right Jenn Roa, P.A.-C. [facility] Procedures OT Ongoing Treatment [address] [place] [phone] Referral ID Status Reason Start Date Expiration Date Visits V isits Requested Authorized [id number] Canceled 07/23/2021 07/23/2022 99 99 Encounter Details Date Type Department Care Team Description 08/06/2021 Clinical Support Department of Jenn Roa, P.A.-C. [address] [place] [phone] Fracture Radius Rehabilitation Services Ama Grady, O.TTam Colles Closed in [place], [address] [place] [phone] Social History Tobacco Use Types Packs/Day Years [...] on file documented as of this encounter Progress Notes Ama Grady O.T. - 08/06/2021 11:00 AM CST Occupational Therapy Outpatient Treatment SUBJECTIVE Patient's Name: Bella Jones Referring Provider: Jenn Roa P.A.-C. Visit Diagnosis: 1. Fracture Radius Colles Closed Initial Right Payor: MEDICARE / Plan: MEDICARE A AND B / Product Type: Medicare / Gear6 Visit Count: 1 Patient comments: Patient reports she has been working to use RUE more functionally. Contact monitoring: PPE used during therapy: Therapist was wearing the following PPE throughout entire session: surgicalmask and eye protection OBJECTIVE Pain: Varies significantly. At times no pain and can wake her up at night with 8/10 pain. During session she described as 4/10 aching type pain R wrist flex/extension is 55 degrees with passive stretch to 60 R ulnar deviation is 10 degrees and radial 13 degrees Her R plastic mixer has increased to 30# from 13# She has noted small fluid pocket on medial side of scar and raised area on back of hand. Her scar area is well healed and flat. She notes she has been completing desensitization activities regularly. Recommend she focuses on the small pocket of fluid using a deeper tissue mobility technique and stretch tissue on back of hand with wrist flexion stretch as well as use ice and compression. Size C tubigrip given to wear at night and during day as needed. She completed active and assisted wrist ROM exercise with wrist flex/ext and R/U dev and pron/sup with gentle stretches at end range Added 1# wt wrist flex/ext, pron/sup and R/U deviation x10 Home Exercise Program/Education: add 1# wt for strengthening Pt reports good compliance with their HEP. Assessment Clinical Impression: Patient has shown greater ability to tolerate touch to RUE. She has increased Rhand strength. She continues to work to enhance wrist ROM and will begin gentle 1# resistance. She has small edema pocket at back of hand and then inside wrist. Education with manual massage, compression and ice to reduce. She should continue to stretch Functional Goals and Timeframes: OT Goal #1: Patient will increase wrist ROM by 10 degrees to increase functional use with self cares OT Goal #1 Date: 08/20/2021 OT Goal #2: Patient will increase hand strength by 10# to increase functional use with self cares OT Goal #2 Date: 08/20/2021 Plan Plan for next session: assess range and strength and progress HEP as able Time Spent with Patient Manual Therapy (min): 15 min Therapeutic Exercise (min): 31 min Time Calculation Total Timed Units (min): 46 min Total Treatment Time (min): 46 min INSURANCE SALESPERSON documented in this encounter Plan of Treatment Not on filedocumented as of this encounter Visit Diagnoses Diagnosis Fracture Radius Colles Closed Initial Ri ght documented in this encounter Care Teams Internal Medicine Specialist Relationship Specialty Start Date End Date Elsewhere, Pcp PCP - General Family Medicine 03/11/21 documented as of this encounter
--- OUTSIDE RECORDS SUMMARY | 2022-04-03 11:07 | XMS_ITS | Encounter Summary ---
:1955 Author Organization [facility] Address [address] [place] [address] Care Team Providers Name Role Phone Elsewhere, Pcp Primary Care Provider Unavailable Encounter Details Date Type Department Care Team Description 05/26/2021 Ancillary Procedure Department of General Surgery Social History Tobacco Use Types Packs/Day Years [...] on file documented as of this encounter Plan of Treatment Not on filedocumented as of this encounter Procedures Procedure Name Priority Date/Time Associated Diagnosis Comme nts SURGERY IMAGE EXAM Routine 05/26/2021 1:15 PM Re sults for this MOP WORKER procedure are i n the results section. documented in this encounter Results Non-Radiology Image-Surgery Image Exam (05/26/2021 1:15 PM MOP WORKER) Specimen (Source) Anatomical Collection Method Collection Time Re ceived Time Location / / Volume Laterality 05/26/2021 1:13 PM MOP WORKER Narrative IIMS - 05/26/2021 1:37 PM MOP WORKER This order has been created and auto-finalized to support the import of images acquired without order. The clini luis felipe documentation to support these images can be found on the encounter lilliana t produced images. Provider Not In System IMG NON RAD IMAGING PROCEDUR ES Performing Organization Address City/State/ZIP Code Phon e Number IIMS IIMS NA documented in this encounter Visit Diagnoses Not on filedocumented in this encounter Care Teams Pin Drafter Operator Relationship Specialty Start Date End Date Elsewhere, Pcp PCP - General Family Medicine 03/11/21 documented as of this encounter
--- OUTSIDE RECORDS SUMMARY | 2022-04-03 11:07 | XMS_ITS | Encounter Summary ---
:1955 Author Organization [facility] Address [address] [place] [address] Care Team Providers Name Role Phone Elsewhere, Pcp Primary Care Provider Unavailable Encounter Details Date Type Department Care Team Description 07/07/2021 Hospital Encounter Department of Jenn Roa Fract ure [facility] Radiology in [facility]. [place], [place] [address] [facility] Initial Right [address] [place] [phone] Social History Tobacco Use [...] DX WRIST RIGHT 3+ RAD - Routine 07/07/2021 2:03 Fracture Radius Res ults for this VIEWS (most inpatients PM DEPUTY BAILIFF Colles Closed procedure are in and all Initial Right the results outpatients) section. documented in this encounter Results DX Wrist Right 3+ Views (07/07/2021 2:03 PM DEPUTY BAILIFF) Anatomical Region Laterality Modality Upper Extremity, Wrist, Musculoskeletal RST LOS, Right Digital Radiography Musculoskeletal ARZ LOS, Muskuloskeletal FLA LOS Specimen (Source) Anatomical Collection Method Collection Time Re ceived Time Location / / Volume Laterality 07/07/2021 2:29 PM DEPUTY BAILIFF Impressions 07/07/2021 2:30 PM DEPUTY BAILIFF Compared to 06/09/2021. Volar plate and screw fixation across a healing comminuted, intra-articular frac ture of the right distal radius. No change in alignment compared with the pr ior study. Severe osteopenia. Slight ulna positive variance. Ununited ulnar s tyloid fracture. Severe osteopenia. Narrative 07/07/2021 2:30 PM DEPUTY BAILIFF EXAM: ??DX WRIST RIGHT 3+ VIEWS Procedure Note Estella Underwood M.D. - 07/07/2021For matting of this note might be different from the original. EXAM: DX WRIST RIGHT 3+ VIEWS IMPRESSION: Compared to 06/09/2021. Volar plate and screw fixation across a healing comminuted, intra-articular frac ture of the right distal radius. No change in alignment compared with the pr ior study. Severe osteopenia. Slight ulna positive variance. Ununited ulnar s tyloid fracture. Severe osteopenia. Jenn Roa P.A.-C. [facility] DIAGNOSTIC IMAGING PROCE RIGOBERTO documented in this encounter Visit Diagnoses Diagnosis Fracture Radius Colles Closed Initial Ri ght documented in this encounter Care Teams Synchronizer Relationship Specialty Start Date End Date Elsewhere, Pcp PCP - General Family Medicine 03/11/21 documented as of this encounter
--- OUTSIDE RECORDS SUMMARY | 2022-04-03 11:07 | XMS_ITS | Encounter Summary ---
:1955 Author Organization [facility] Address [address] [place] [address] Care Team Providers Name Role Phone Elsewhere, Pcp Primary Care Provider Unavailable Reason for Referral Physical Therapy (Routine) - Authorized Specialty Diagnoses / Procedures Referred By Contact Refer red To Contact Diagnoses Fracture Radius Colles Closed Initial Right Jenn Roa P.A.-C. [facility] Procedures PT Evaluate and treat [address] [place] [address] Referral ID Status Reason Start Date Expiration Date Visits V isits Requested Authorized [id number] Authorized 07/07/2021 07/07/2022 99 99 IFFS Reason for Visit Outpatient (Routine) - Closed Specialty Diagnoses / Procedures Referred By Contact Refer red To Contact Orthopedic Surgery Jenn Roa P.A. -C. [facility] Region [address] [place] [address] Referral ID Status Reason Start Date Expiration Date Visits Requ ested Visits Authorized [id number] Closed 06/09/2021 06/09/2022 1 1 Encounter Details Date Type Department Care Team Description 07/07/2021 Office Visit Department of Jenn Roa, Fracture Ra dius Colles Orthopedic Surgery in [place] Closed Initial Right [place], [place] [address] (Primary Dx) [address] [place] [phone] Social History Tobacco Use Types Packs/Day [...] documented as of this encounter Progress Notes Jenn Roa P.A.-C. - 07/07/2021 2:00 PM CST CHIEF COMPLAINT/REASON FOR VISIT Followup wrist fracture. HISTORY OF PRESENT ILLNESS Ms. Jones is a 66-year-old female who presents to clinic today for postop appointment status postORIF of right distal radius fracture by Dr. Tineo on 05/26/2021. She has been doing well since surgery, tolerating her pain well, really he is having none. She has been using her splint diligently. Denies numbness, tingling, fevers, chills. Is happy with her recovery thus far at this point. OBJECTIVE PHYSICAL EXAMINATION General: Alert and oriented x3, no distress. Extremities: Skin intact. Sensation to light touch intact. Capillary refill less than 3 seconds. Palpable radial pulse. She has an incision that has healed appropriately. No excess erythema or warmth. No signs of infection. She can do gentle range of motion of the wrist and digits. She cannot quite make a full fist today. Has limitation to wrist flexion, extension, but overall is moving well coming out of the splint. She has no concerning signs or symptoms today. ASSESSMENT / PLAN #1 Status post ORIF, right distal radius fracture PLAN: At her appointment today, we discussed continuing per plan. She will continue to avoid any heavy lifting, weightbearing at this point. Will gradually increase her activities. We did review her radiographs today and discussed her restrictions and precautions. She will start working with occupational therapy, gradually wean out of the splint, and follow up as discussed. All of her questions and concerns were answered today. She was encouraged to call with any. IFFS documented in this encounter Plan of Treatment Not on filedocumented as of this encounter Results DX Wrist Right 3+ Views (07/07/2021 2:03 PM SHERIFFS) Anatomical Region Laterality Modality Upper Extremity, Wrist, Musculoskeletal RST LOS, Right Digital Radiography Musculoskeletal ARZ LOS, Muskuloskeletal FLA LOS Specimen (Source) Anatomical Collection Method Collection Time Re ceived Time Location / / Volume Laterality 07/07/2021 2:29 PM SHERIFFS Impressions 07/07/2021 2:30 PM SHERIFFS Compared to 06/09/2021. Volar plate and screw fixation across a healing comminuted, intra-articular frac ture of the right distal radius. No change in alignment compared with the pr ior study. Severe osteopenia. Slight ulna positive variance. Ununited ulnar s tyloid fracture. Severe osteopenia. Narrative 07/07/2021 2:30 PM SHERIFFS EXAM: ??DX WRIST RIGHT 3+ VIEWS Procedure [...] tyloid fracture. Severe osteopenia. Jenn Roa P.A.-C. IMG DIAGNOSTIC IMAGING PROCE DURES documented in this encounter Visit Diagnoses Diagnosis Fracture Radius Colles Closed Initial Ri ght - Primary Fracture Radius Colles Closed Initial Ri ght documented in this encounter Care Teams Physicians And Surgeons Relationship Specialty Start Date End Date Elsewhere, Pcp PCP - General Family Medicine 03/11/21 documented as of this encounter
--- OUTSIDE RECORDS SUMMARY | 2022-04-03 11:07 | XMS_ITS | Encounter Summary ---
:1955 Author Organization [facility] Address [address] [place] [address] Care Team Providers Name Role Phone Elsewhere, Pcp Primary Care Provider Unavailable Reason for Visit Reason Comments Foot Pain 66 year old female admits wi th concerns of lrft great toe infection Encounter Details Date Type Department Care Team Description 02/13/2022 Emergency [place] [facility] Davila, Trent NNichole wn Toenail (Primary Department C.N.P. Dx) [address] [place] [address] [address] [place] [phone] Social History Tobacco Use Types Packs/Day Years [...] Sign Reading Time Taken Comments Blood Pressure 153/75 02/13/2022 2:00 PM CDT Pulse 64 02/13/2022 2:00 PM CDT Temperature 36 ??C (96.8 ??F) 02/13/2022 1:58 PM CDT Respiratory Rate 16 02/13/2022 1:58 PM CDT Oxygen Saturation 99% 02/13/2022 2:00 PM CDT Inhaled Oxygen Concentration - - Weight 49 kg (108 lb 0.4 oz) 02/13/2022 1:59 PM CDT Height - - Body Mass Index 19.76 05/27/2021 5:18 AM PREPRESS TECHNICIAN documented in this encounter Discharge Instructions Discharge InstructionsTrent Davila C.N.P. - 02/13/2022 2:12 PM CDT Your symptoms suggestive for an ingrown toenail and inflammation surrounding the toenail. You will be discharged home with cefadroxil for treatment of possible infection. When taking the oxycodone, do not drink alcohol operate machinery as it does cause drowsiness. Reach out to your aligned Podiatry next week for follow-up regarding management of the ingrown toenail. If you develop persistent fever, nausea vomiting that you can not control, weakness, or worsening symptoms, you can return to the emergency department for further evaluation. documented in this encounter Medications at Time of Discharge Medication Sig Dispensed Refills Start Date End Date alendronate (FOSAMAX) TAKE 1 TABLET BY 0 08/20/19 19 70 mg tablet MOUTH 1 TIME A WEEK IN THE MORNING ON AN EMPTY STOMACH AND WITH FULL GLASS OF WATER. DO NOT LIE DOWN FOR 1 HOUR amLODIPine (NORVASC) 10 Take 10 mg by mouth. 0 mg tablet atenolol (TENORMIN) 100 Take 1 tablet by 0 2011 mg tablet mouth daily. atorvastatin (LIPITOR) Take 10 mg by mouth. 0 10 mg tablet blood sugar diagnostic TEST FOUR TIMES DAILY 0 (CONTOUR TEST STRIPS) strips calcium Take by mouth. 0 01/21/2008 carbonate-vitamin D3 1,500 mg (600 mg calcium)-200 unit per tablet gabapentin (NEURONTIN) TAKE 1 AND ONE-HALF 0 08/03 600 mg tablet TABLETS BY MOUTH AT BEDTIME AND 1 TABLET EVERY MORNING insulin glargine Inject 17 Units under 0 08/20/19 19 (LANTUS U-100 INSULIN) the skin. 100 unit/mL injection insulin regular Take 7-11 units 0 08/20/2018 (NovoLIN R Regular subcutaneous three U-100 Insuln) 100 times daily unit/mL injection insulin syringe-needle For administering 0 2018 U-100 0.3 mL 31 gauge x insulin at home. 11/15 syringe lacosamide (VIMPAT) 100 Take 100 mg by mouth 0 mg tablet 2 (two) times a day. levETIRAcetam (KEPPRA) Take 250 mg by mouth 0 250 mg tablet 2 (two) times a day. levETIRAcetam (KEPPRA) Take [...] disintegrating tablet 12 (twelve) hours. oxyCODONE (ROXICODONE) Take 1 tablet (5 mg 20 tablet 0 05/04 5 mg immediate release total) by mouth every tabletIndications: 6 (six) hours as Prolonged Acute needed for pain Pain/Traumatic Injury Indication: Prolonged Acute Pain/Traumatic Injury. sertraline (ZOLOFT) 50 Take 50 mg by mouth. 0 mg tablet traZODone (DESYREL) 50 TAKE 2 TABLETS BY 0 2018 mg tablet MOUTH AT BEDTIME cefadroxil (DURICEF) Take 1 capsule (500 14 capsule 0 202102/20/2022 500 mg capsule mg total) by mouth 2 (two) times a day for 7 days. documented as of this encounter ED Notes Trent Davila, C.N.P. - 02/13/2022 2:04 PM CDT SUBJECTIVE CHIEF COMPLAINT/REASON FOR VISIT Foot Pain (66 year old female admits with concerns of lrft great toe infection) HISTORY OF PRESENT ILLNESS Bella Jones is a 66 y.o. female with history of diabetes presents to the ED concerning for left great toenail pain. Patient reports for the past 3 days she noticed increasing redness with pain to her left great toenail. She denies any recent injury or trauma. She reports her glucose today was 161. Denies any fever, chills, nausea, or vomiting. Denies any numbness, tingling, or sensation loss. REVIEW OF SYSTEMS Constitutional: Negative for chills and fever. HENT: Negative. Eyes: Negative. Respiratory: Negative. Cardiovascular: Negative. Gastrointestinal: Negative. Musculoskeletal: Left great toenail pain Skin: Positive for rash. Psychiatric/Behavioral: Negative. OBJECTIVE Initial Vitals [02/13/22 1358] Temperature Pulse Rate Heart Rate Resp Rate Blood Pressure SpO2 36 ??C 64 -- 16 153/75 100 % Pain Score 6 PHYSICAL EXAMINATION Constitutional: She appears not lethargic. No distress. HENT: Nose: Nose normal. Eyes: Conjunctivae are normal. Pulmonary/Chest: Effort normal. Musculoskeletal: Left foot: Tenderness present. No swelling. Comments: Erythema along the left great toenail. No erythema along the podagra. There is no fluctuance noted. Neurological: Alert and oriented to person, place, and time. Skin: Skin is normal color. She is not diaphoretic. Psychiatric: She has a normal mood and affect. ASSESSMENT/PLAN IMPRESSION AND PLAN On exam, there is erythema surrounding the left great toenail but no involvement of the podagra. Symptoms suggestive for an ingrown toenail. No significant warmth or fluctuance that would be suggestivefor abscess at this time. Suspect inflammation due to the ingrown toenail. However, given she is a diabetic, will treat prophylactically with cefadroxil. Will discharge home with a short prescription for oxycodone for pain control and recommend she reach out to Podiatry for evaluation of the ingrown toenail. Strict return precaution given. DIFFERENTIAL DIAGNOSIS Ingrown toenail, cellulitis, abscess, gout, and others considered. Final Diagnoses: as of 02/13/221411 Ingrown Toenail Trent Davila, C.N.P. 02/13/221411 documented in this encounter Plan of Treatment Not on filedocumented as of this encounter Visit Diagnoses Diagnosis Ingrown Toenail - Primary documented in this encounter Care Teams Back Wedger Relationship Specialty Start Date End Date Elsewhere, Pcp PCP - General Family Medicine 03/11/21 documented as of this encounter
--- OUTSIDE RECORDS SUMMARY | 2022-04-03 11:07 | XMS_ITS | Encounter Summary ---
:1955 Author Organization [facility] Address [address] [place] [address] Care Team Providers Name Role Phone Elsewhere, Pcp Primary Care Provider Unavailable Reason for Visit Reason Comments Post-op Problem Rt Hand swollen-s/p ORIF Encounter Details Date Type Department Care Team Description 05/27/2021 Emergency [place] [facility] Isidoro Parker S welling Hand (Primary Dx); Department C.N.P. Open Reduction And Internal Fixation For earm Status Post; [address] [place], [place] [address] [address] Post Operative Nausea/Vomiti ng [place], [place] [id number] [place], [place] [phone] (Wo rk) Social History Tobacco Use Types [...] Sign Reading Time Taken Comments Blood Pressure 144/67 05/27/2021 5:22 AM CLOTH CUTTING INSPECTOR Pulse 70 05/27/2021 5:22 AM CLOTH CUTTING INSPECTOR Temperature 36.7 ??C (98.1 ??F) 05/27/2021 5:22 AM CLOTH CUTTING INSPECTOR Respiratory Rate 18 05/27/2021 5:22 AM CLOTH CUTTING INSPECTOR Oxygen Saturation 100% 05/27/2021 5:22 AM CLOTH CUTTING INSPECTOR Inhaled Oxygen Concentration - - Weight - - Height 157.5 cm (5' 2) 05/27/2021 5:18 AM CLOTH CUTTING INSPECTOR Body Mass Index - - documented in this encounter Discharge Instructions Discharge InstructionsStIsidoro armstrong C.N.P. - 05/27/2021 5:46 AM CST Make sure this is elevated with the hand higher than the elbow at most times. Use the sling when up.Medications as needed for nausea. Call orthopedics for any further problems or if sx would worsen return to the ED. Thank you for utilizing [facility] for your care! H CUTTING INSPECTOR documented in this encounter Medications at Time [...] AT BEDTIME documented as of this encounter Procedure Notes Isidoro Parker, C.N.P. - 05/27/2021 5:49 AM CSTAssociated Order(s): Splint Application Procedure Splint Application Date/Time: 05/27/2021 5:49 AM Performed by: Isidoro Parker, C.N.P. Authorized by: Isidoro Parker, C.N.P. PROCEDURE DETAILS Immobilization: Splint Splint type: Volar short arm Supplies used: Cotton padding and elastic bandage (used same volar plaster) CONSENT Consent obtained: verbal Consent given by: patient The benefits, risks and alternatives to the procedure and the potential need for sedation or anesthesia as well as the names, roles, and responsibilities of healthcare team members performing significant interventional tasks were discussed with the patient and/or decision maker. UNIVERSAL PROTOCOL All relevant documentation and testing were reviewed and available. All required blood products, implants, devices and or special equipment were made available as applicable. Pre-procedure verificationwas conducted and the correct site was marked if required. A fire risk assessment was done as applicable. The procedural time-out was conducted prior to performing the procedure and confirmed in a procedural pause. PRE PROCEDURE DETAILS Procedure type: application Procedure type comment: Removal of old splint and placement of new Performed by: FURNACE REPAIRER HELPER Location: Wrist Wrist: Right wrist Circulation distal to injury: warm, pink and palpable pulse Circulation distal to injury comment: Cap refill 3 seconds Movement distal to injury: normal Sensation distal to injury: normal SEDATION / ANESTHESIA Anesthesia method: none POST PROCEDURE DETAILS Procedure completed successfully: yes Pain: Improved Circulation distal to injury: capillary refill < 2 sec, warm, pink and palpable pulse Movement distal to injury: normal Sensation distal to injury: normal Complications: no immediate complications COMMENTS Pain improved post splint removal Isidoro Parker C.N.P. 05/27/21 0551 H CUTTING INSPECTOR documented in this encounter ED Notes Isidoro Parker CTamN.P. - 05/27/2021 5:32 AM CST Images from the original note were not included. CHIEF COMPLAINT/REASON FOR VISIT Post-op Problem (Rt Hand swollen-s/p ORIF 05/26) HISTORY OF PRESENT ILLNESS Bella Jones is a 65 y.o. who has a past medical history of Diabetes Mellitus Type 2 (HCC) and Hypertension NOS. who presents to the Emergency Department with complaints of postop right hand swelling after ORIF 05/26. Patient presents to the emergency department with complaints of right hand pain and swelling. Patient had an open reduction internal fixation of a right intra- articular wrist fracture. Patient states surgery was fine. She then noticed more throbbing and swelling of her right hand. She took pain medication approximately an hour and half prior to arrival. She states she is having more pain than usual. As for this reason she presents to the emergency department. Patient denies any fever, chills, sweats. She does have a little bit of nausea with the pain medication but denies any vomiting. Currently complaints of slight dizziness and slightly pale. Denies any other problems. REVIEW OF SYSTEMS Constitutional: Negative for chills, diaphoresis, fatigue and fever. HENT: Negative for sinus pressure and sore throat. Respiratory: Negative for cough, chest tightness and shortness of breath. Cardiovascular: Negative for chest pain. Gastrointestinal: Negative for abdominal pain, constipation, diarrhea, nausea and vomiting. Genitourinary: Negative for dysuria, frequency and urgency. Musculoskeletal: Positive for extremity pain. Negative for arthralgias and myalgias. Skin: Negative for rash. Neurological: Negative for dizziness, weakness and headaches. Hematological: Negative for adenopathy. Does not bruise/bleed easily. All other systems reviewed and are negative. Allergies Reviewed in medical record Current Medications Reviewed in Medical Record. PAST HISTORY Medical Past Medical History: Diagnosis Date ??? Diabetes Mellitus Type 2 (HCC) ??? Hypertension NOS Patient Active Problem List Diagnosis ??? Fracture Radius Colles Closed Initial Right ??? Hypertension NOS ??? Diabetes Mellitus Type 2 (HCC) Surgical Past Surgical History: Procedure Laterality Date ??? CATARACT EXTRACTION AND INSERTION OF INTRAOCULAR LENS N/A 05/31/2012 Cataract extraction and insertion of intraocular lens ??? CATARACT EXTRACTION AND INSERTION OF INTRAOCULAR LENS N/A 06/14/2012 Cataract extraction and insertion of intraocular lens Family Reviewed in Medical Record Social History Social History Tobacco Use ??? Smoking status: Current Every Day Smoker Packs/day: 0.50 ??? Smokeless tobacco: Never Used Substance Use Topics ??? Alcohol use: Yes Comment: occas Social History Substance and Sexual Activity Drug Use Yes ??? Frequency: 1.0 times per week ??? Types: Marijuana Comment: vape OBJECTIVE Initial Vital Signs / Weights Initial Vitals Temperature Pulse Rate Heart Rate Resp Rate Blood Pressure SpO2 05/27/21 0522 05/27/21 0522 -- 05/27/21 0522 05/27/21 0522 05/27/21 0522 36.7 ??C 70 18 144/67 100 % Pain Score 05/27/21 0518 9 Wt Readings from Last 3 Encounters: 05/26/21 47.8 kg 05/17/21 47 kg 05/14/21 47 kg PHYSICAL EXAMINATION Constitutional: Nursing note and vitals reviewed. No distress. HENT: Nose: No nasal discharge. Mouth/Throat: Oropharynx is clear and moist. Mucous membranes are moist. No tonsillar exudate. Eyes: Conjunctivae are normal. Pupils are equal, round, and reactive to light. Neck: Neck supple. Cardiovascular: Normal rate. Pulses are strong and palpable. Capillary refill: takes less than 3 seconds, Pulmonary/Chest: Effort normal. No respiratory distress. Musculoskeletal: General: Edema present. Normal range of motion. Cervical back: Normal range of motion and neck supple. Comments: Right hand is swollen from the dorsum down to the fingers. This is distal to the volar splint that has been placed. Lymphadenopathy: She has no cervical adenopathy. Neurological: Alert and oriented to person, place, and time. Skin: Skin is warm, dry and intact. Psychiatric: She has a normal mood and affect. DIAGNOSTICS Procedures Splint removal and reaaplication See separate procedure note. ED COURSE Final Diagnoses: as of 05/27/2148 Swelling Hand Open Reduction And Internal Fixation Forearm Status Post Post Operative Nausea/Vomiting INTERVENTIONS Medications ondansetron ODT disintegrating tablet 4 mg (ZOFRAN-ODT) (4 mg oral Given 05/27/21 05) MEDICAL DECISION MAKING IMPRESSION AND PLAN Presents to the emergency department with postoperative right hand swelling status post ORIF yesterday. Differential diagnosis includes but not limited to postop swelling, dependent swelling, DVT, or others. The postop dressing and volar splint were removed. Patient states this felt much better. There is fair amount of dependent swelling. Capillary refill is 3 seconds. Radial pulses intact. Doubt DVT. Restof her arm is not swollen and it was just distal to the dressing. The arm was redressed with a volarsplint. I stressed elevation of the arm, ice to the hand, pain medication as needed. She will also be sent home with prescription for Zofran. She was discharged in no acute distress. Incision looks clean and dry normal postoperative healing. There is no bleeding. I reviewed previous medical records including documentation from previous visits. DIAGNOSIS Final diagnoses: [M79.89] Swelling Hand [Z97.8] Open Reduction And Internal Fixation Forearm Status Post [Z91.89] Post Operative Nausea/Vomiting DISPOSITION Home or Self Care DISCHARGE/TRANSFER VITAL SIGNS Vitals: 05/27/21521 BP: 144/67 Pulse: 70 Resp: 18 Temp: 36.7 ??C SpO2: 100% ED DISCHARGE MEDS ED Prescriptions Medication Sig Dispense Start Date End Date Auth. Provider ondansetron ODT (ZOFRAN-ODT) 4 mg disintegrating tablet Take 1 tablet (4 mg total) by mouth every 12 (twelve) hours. 10 tablet 05/27/2021 Isidoro Parker C.NTamPTam FOLLOW UP Contact Information for Follow-ups Jorden Tineo M.D. Specialty: Orthopedic Surgery, General Surgery [address] [place] [phone] Next Steps: Follow up Instructions: as scheduled. any further problems call the clinic. Isidoro Parker, DNP, DIRECTOR HEART, OVEN PRESS TENDER-C, AGACNP-BC, ENP-C Emergency Medicine Isidoro Parker C.N.P. 05/27/21 0548 H CUTTING INSPECTOR documented in this encounter Plan of Treatment Not on filedocumented as of this encounter Procedures Procedure Name Priority Date/Time Associated Diagnosis Comme nts SPLINT APPLICATION Routine 05/27/2021 5:49 AM Res ults for this CLOTH CUTTING INSPECTOR procedure are i n the results section. documented in this encounter Results Splint Application (05/27/2021 5:49 AM CLOTH CUTTING INSPECTOR) Narrative Isidoro Parker C.N.P. - 05/27/2021 5:4 9 AM CLOTH CUTTING INSPECTOR Isidoro Parker C.N.P. ? 05/27/2021 ??5:51 AM Splint Application Date/Time: 05/27/2021 5:49 AM Performed by: Isidoro Parker C.N.P. Authorized by: Isidoro Parker C.NTamPTam PROCEDURE DETAILS Immobilization: ??Splint Splint type: ??Volar short arm Supplies used: ??Cotton padding and elas tic bandage (used same volar plaster) CONSENT Consent obtained: verbal Consent given by: patient The benefits, risks and alternatives to the procedure and the potential need for sedation or anesthesia as well as the names, roles, and responsibilities of healthcare team memb ers performing significant interventional tasks were discussed with the patient and/or decision maker. UNIVERSAL PROTOCOL All relevant documentation and testing [...] and confirmed in a procedu ral pause. PRE PROCEDURE DETAILS Procedure type: application ?? Procedure type comment: ??Removal of old splint and placement of new Performed by: ??FURNACE REPAIRER HELPER Location: ??Wrist Wrist: ??Right wrist Circulation distal to injury: warm, pink and palpable pulse ?? Circulation distal to injury comment: ?? Cap refill 3 seconds Movement distal to injury: normal ?? Sensation distal to injury: normal ?? SEDATION / ANESTHESIA Anesthesia method: none POST PROCEDURE DETAILS Procedure completed successfully: yes ?? Pain: ??Improved Circulation distal to injury: capillary refill < 2 sec, warm, pink and palpable pulse ?? Movement distal to injury: normal ?? Sensation distal to injury: normal ?? Complications: no immediate complication s ?? COMMENTS Pain improved post splint removal Isidoro Parker C.N.P. PROCEDURE/MINOR SURGICAL ORD ERABLES documented in this encounter Visit Diagnoses Diagnosis Swelling Hand - Primary Open Reduction And Internal Fixation For earm Status Post Post Operative Nausea/Vomiting documented in this encounter Administered Medications Inactive Administered Medications - up to 3 most recent administrations Medication Order MAR Action Action Date Dose Rate Site ondansetron ODT disintegrating Given 05/27/2021 5:36 AM CLOTH CUTTING INSPECTOR 4 mg tablet 4 mg (ZOFRAN-ODT) 4 mg, oral, Once, On [place] 05/27/21 at 0532, For 1 dose, When splitting ODT at bedside, handle with gloves and a pill splitter to prevent moisture contact. documented in this encounter Active and Recently Administered Medications Times are shown in CLOTH CUTTING INSPECTOR. Scheduled Medication Order 05/25/2021 05/26/2021 05/27/2021 ondansetron ODT disintegrating tablet 4 mg (ZOFRAN-ODT) (COMPLET ED) 0536 (Given - Provider: Tato Bradshaw R.N.) 4 mg, oral, Once, On [place] 05/27/21 at 053 2, For 1 dose, When splitting ODT at bedside, handle with gloves and a pill splitter to prevent moisture contact. documented in this encounter Care Teams Home Service Demonstrator Relationship Specialty Start Date End Date Elsewhere, Pcp PCP - General Family Medicine 03/11/21 documented as of this encounter
--- OUTSIDE RECORDS SUMMARY | 2022-04-03 11:07 | XMS_ITS | Encounter Summary ---
:1955 Author Organization [facility] Address [address] [place] [address] Care Team Providers Name Role Phone Elsewhere, Pcp Primary Care Provider Unavailable Reason for Referral Outpatient (Routine) - Closed Specialty Diagnoses / Procedures Referred By Contact Refer red To Contact Orthopedic Surgery Jenn [facility]a P.A. -[facility] [address] [place] [phone] Referral ID Status Reason Start Date Expiration Date Visits Requ ested Visits Authorized [id number] Closed 06/09/2021 06/09/2022 1 1 ER Reason for Visit Outpatient (Routine) - Closed Specialty Diagnoses / Procedures Referred By Contact Refer red To Contact Orthopedic Surgery Jenn Roa P.A. -C. [address] [place] [address] Referral ID Status Reason Start Date Expiration Date Visits Requ ested Visits Authorized [id number] Closed 05/20/2021 05/20/2022 1 1 Encounter Details Date Type Department Care Team Description 06/09/2021 Office Visit Department of Jenn Roa, Helder Onofre Orthopedic Surgery in [place] Closed Initial Right [place] [id number] Shaye Maurice (Primary Dx) [address] [place] [phone] Social History Tobacco Use Types Packs/Day [...] encounter Progress Notes Jenn Roa P.A.-C. - 06/09/2021 1:00 PM CST CHIEF COMPLAINT/REASON FOR VISIT Followup wrist surgery. HISTORY OF PRESENT ILLNESS Ms. Jones is a 65-year-old female who presents to clinic today for postop appointment status postopen reduction internal fixation, intra-articular distal radius fracture by Dr. Tineo on 05/26/2021. She has been doing well since the surgery tolerating her pain well, though she did have to go to the emergency room for some swelling and discomfort a couple days after the surgery. However, this hassignificantly improved since. She has some nighttime difficulty with sleeping with some achiness, but overall significant improvement. Denies numbness, tingling, fevers, chills. OBJECTIVE PHYSICAL EXAMINATION Alert and oriented x3, no distress. Skin intact. Sensation to light touch intact. Capillary refill less 3 seconds. Palpable radial pulse. She did some gentle range of motion of the wrist and digits today. Her incision is healing appropriately. No excess erythema or warmth. No signs of infection. ASSESSMENT / PLAN #1 Status post ORIF, right distal radius fracture PLAN: At her appointment today we discussed continuing per plan. She will continue to avoid any repetitive activities, tight gripping, grasping, weightbearing, lifting with this upper extremity. We will place her in a removable splint. She will return to clinic in 4 weeks for radiographs and recheck, sooner if there are problems, issues or concerns. She understands her restrictions and precautions. If any issues, she will come back to the clinic sooner. ER documented in this encounter Plan of Treatment Scheduled Referrals Name Type Priority Associated Order Schedule Diagnoses Orthopedic Surgery Outpatient Referral Routine Ex pected: Post Op (clinic) 07/10/2021 (Approximate), Expires: 09/07/2022 documented as of this encounter Results DX Wrist Right 3+ Views (06/09/2021 1:11 PM CROZER) Anatomical Region Laterality Modality Upper Extremity, Wrist, Musculoskeletal RST LOS, Right Digital Radiography Musculoskeletal ARZ LOS, Muskuloskeletal FLA LOS Specimen (Source) Anatomical Collection Method Collection Time Re ceived Time Location / / Volume Laterality 06/09/2021 1:13 PM CROZER Impressions 06/09/2021 1:17 PM CROZER Volar plate and screw fixation across a comminuted minimally displaced transverse fracture of the dis leonides right radial metaphysis which extends into the distal radioulnar joint . No hardware failure. Fracture line is still visible. Displaced ulnar styloid f racture. Demineralization. Changes of ulnolunate abutment. Soft tissue swellin g right wrist. Narrative 06/09/2021 1:17 PM CROZER EXAM: ??DX WRIST RIGHT 3+ VIEWS Procedure [...] Soft tissue swellin g right wrist. Jenn Roa P.A.-C. IMG DIAGNOSTIC IM[facility]ING [place] documented in this encounter Visit Diagnoses Diagnosis Fracture Radius Colles Closed Initial Ri ght - Primary Fracture Radius Colles Closed Initial Ri ght documented in this encounter Care Teams Log Processor Operator Relationship Specialty Start Date End Date Elsewhere, Pcp PCP - General Family Medicine 03/11/21 documented as of this encounter
--- OUTSIDE RECORDS SUMMARY | 2022-04-03 11:07 | XMS_ITS | Clinical Summary ---
:1955 Author Organization [facility] Address [address] [place] [address] Care Team Providers Name Role Phone Elsewhere, Pcp Primary Care Provider Unavailable Source Comments Patient records contain information from all sites at [facility]. For routine questions regarding patient records, call [phone] during business hours, M-F 8:00 AM - 5:00 PM Central Time. Record requests for emergency care only can be directed to [phone] at any time.[facility] Allergies Active Allergy Reactions Severity Noted Date Comments Aspirin, Buffered Other (see comments) 01/18/2007 Carbamazepine Other (see comments) 01/18/2007 Hydrochlorothiazide Other (see comments) 01/18/2007 low sodium Phenytoin Other (see comments) 01/18/2007 gingiva l hyperplasia Medications Medication Sig Dispensed Refills Start Date End Date Status alendronate (FOSAMAX) TAKE 1 TABLET BY 0 08/20/2018 Active 70 mg tablet MOUTH 1 TIME A WEEK IN THE MORNING ON AN EMPTY STOMACH AND WITH FULL GLASS OF WATER. DO NOT LIE DOWN FOR 1 HOUR amLODIPine (NORVASC) Take 10 mg by 0 11/15/2018 Active 10 mg tablet mouth. atenolol (TENORMIN) Take 1 tablet by 0 05/31/2012 Active 100 mg tablet mouth daily. atorvastatin Take 10 mg by 0 08/20/2018 Ac tive (LIPITOR) 10 mg mouth. tablet blood sugar TEST FOUR TIMES 0 09/06/2018 A ctive diagnostic (CONTOUR DAILY TEST STRIPS) strips calcium Take by mouth. 0 01/21/2008 Acti ve carbonate-vitamin D3 1,500 mg (600 mg calcium)-200 unit per tablet gabapentin TAKE 1 AND ONE-HALF 0 08/20/2018 Active (NEURONTIN) 600 mg TABLETS BY MOUTH AT tablet BEDTIME AND 1 TABLET EVERY MORNING insulin glargine Inject 17 Units 0 08/20/2018 Active (LANTUS U-100 under the skin. INSULIN) 100 unit/mL injection insulin regular Take 7-11 units 0 08/20/2018 Active (NovoLIN R Regular subcutaneous three U-100 Insuln) 100 times daily unit/mL injection levETIRAcetam Take 750 mg by 0 08/20/2018 Active (KEPPRA) 750 mg mouth. tablet levETIRAcetam Take 250 mg by 0 09/28/2013 Active (KEPPRA) 250 mg mouth 2 (two) times tablet a day. lisinopril Take 10 mg by 0 01/23/2018 Acti ve (PRINIVIL,ZESTRIL) 20 mouth. mg tablet metoprolol succinate Take 200 mg by 0 10/23/2018 Active (TOPROL-XL) 200 mg 24 mouth. hr tablet sertraline (ZOLOFT) Take 50 mg by 0 08/20/2018 Active 50 mg tablet mouth. insulin For administering 0 08/20/2018 A ctive syringe-needle U-100 insulin at home. 0.3 mL 31 gauge x 5/16 syringe traZODone (DESYREL) TAKE 2 TABLETS BY 0 10/23/2018 Active 50 mg tablet MOUTH AT BEDTIME lacosamide (VIMPAT) Take 100 mg by 0 Active 100 mg tablet mouth 2 (two) times a day. oxyCODONE Take 1 tablet (5 mg 20 tablet 0 05/26/2021 Active (ROXICODONE) 5 mg total) by mouth immediate release every 6 (six) hours tabletIndications: as needed for pain Prolonged Acute Indication: Pain/Traumatic Injury Prolonged Acute Pain/Traumatic Injury. ondansetron ODT Take 1 tablet (4 mg 10 tablet 0 05/27/2021 Active (ZOFRAN-ODT) 4 mg total) by mouth disintegrating tablet every 12 (twelve) hours. Active Problems Problem Noted Date Fracture Radius Colles Closed Initial Right 05/20/2021 Overview: Added automatically from request for jennifer leticia [id number] Hypertension NOS Diabetes Mellitus Type 2 Encounters Date Type Specialty Care Team Description 02/13/2022 Emergency Emergency Medicine Trent Davila N, C.N.P. In grown Toenail (Primary Dx) from Last 3 Months Immunizations Name Administration Dates Next Due Influenza, Unspecified 04/23/2019, 05/02/2016 SARS-COV-2 (COVID-19) - PFIZER (12 years or older) 1 Family History Medical History Relation Name Comments Anesthesia problems Neg Hx Social History Tobacco Use Types Packs/Day Years [...] Assigned at Date Recorded Not on file Last Filed Vital Signs Vital Sign Reading Time Taken Comments Blood Pressure 153/75 02/13/2022 2:00 PM CDT Pulse 64 02/13/2022 2:00 PM CDT Temperature 36 ??C (96.8 ??F) 02/13/2022 1:58 PM CDT Respiratory Rate 16 02/13/2022 1:58 PM CDT Oxygen Saturation 99% 02/13/2022 2:00 PM CDT Inhaled Oxygen Concentration - - Weight 49 kg (108 lb 0.4 oz) 02/13/2022 1:59 PM CDT Height 157.5 cm (5' 2) 05/27/2021 5:18 AM DONOR SPECIALIST Body Mass Index 19.76 05/27/2021 5:18 AM DONOR SPECIALIST Plan of Treatment Health Maintenance Due Date Last Done Comments Bone Density Scan (Osteoporosis 1956 Screen) CT Colonography 1955 Cervical Cancer Screening 1955 Cologuard 1955 Colonoscopy 1955 Colorectal Cancer Screening 1955 Diabetic Office Visit with Foot 1956 Exam Dilated Eye Exam 1956 FIT 1955 HIV Screening 1955 Hemoglobin A1C 1955 Hepatitis C Screening 1955 Mammogram 1955 Office Visit for Blood Pressure 1956 Check / Re-check Tobacco Cessation counseling 1955 Urine Albumin 1955 Hepatitis B Vaccines (1 of 3 - 2016 Risk 3-dose series) COVID-19 Vaccine (4 - Booster for 05/06/2021 03/11/2021, , Pfizer series) 09/21/2020 Pneumococcal vaccine (65+ years) 2021 01/23/2018, 09/1995 (3 - PPSV23 or PCV20) Depression Screening (Annual 07/03/2021 PHQ-2) Influenza Vaccine (#1) 2022 03/23/2020, 04/23/2019, 04/23/2019, Additional history exists Creatinine Level 08/03/2022 08/03/2021, 05/21/2021, 07/08/2020, Additional history exists Potassium Level 08/03/2022 08/03/2021, 05/21/2021, 07/08/2020, Additional history exists Sodium Level 08/03/2022 08/03/2021, 05/21/2021, 07/08/2020, Additional history exists Lipid (Cholesterol) Screening 11/02/2026 11/02/2021, 2020, 08/20/2018 DTaP,Tdap,and Td Vaccines (3 - Td 01/24/2028 01/23/2018, or Tdap) Zoster Vaccines Completed 10/19/2018, 08/20/2018 Fall Risk Screen (Annual) Completed 08/06/2021 Medical Devices Implanted Type Area Electronic Warfare Officer Device Shelf Model / Identifier Expiration Serial / Date Lot Scrw Dvr Fthrd 3.5x13 - [id number] Hardware e.g. Maryam B iomet [id number] / Implanted: Qty: 1 on 05/26/2021 by Jorden Lovelace M.D. at [facility] pins/screws/r / ods 07.05.20.3 19 Insurance Payer Benefit Plan / Subscriber ID Effective Dates Phone Addre ss Type Group MEDICARE MEDICARE A AND B [id number] 2021-Present [address] [place] [address] Care Teams Creative Strategist Relationship Specialty Start Date End Date Elsewhere, Pcp PCP - General Family Medicine 03/11/21
--- OUTSIDE RECORDS SUMMARY | 2022-04-03 11:08 | XMS_ITS | Encounter Summary ---
:1955 Author Organization [facility] Address [address] [place] [address] Care Team Providers Name Role Phone Elsewhere, Pcp Primary Care Provider Unavailable Reason for Visit Appointment Request (Routine) - Closed Specialty Diagnoses / Procedures Referred By Contact Refer red To Contact Family Medicine Referral ID Status Reason Start Date Expiration Date Visits Requ ested Visits Authorized [id number] Closed 03/11/2021 03/11/2022 1 1 Encounter Details Date Type Department Care Team Description 03/11/2021 Immunization Department of Ambika Rangel M.D. Medicine, [facility], [address] in [place], [place] [address] [facility] [address] [place] [address] [phone] Social History Tobacco Use Types Packs/Day Years Used Date Smoking Tobacco: Every Day Smokeless Tobacco: Never Alcohol Use Standard Drinks/Week Comments Yes 0 (1 standard drink = 0.6 oz pure alcoho l) Sex Assigned at Date Recorded Not on file documented as of this encounter Plan of Treatment Not on filedocumented as of this encounter Visit Diagnoses Not on filedocumented in this encounter Care Teams Outside Plant Supervisor Relationship Specialty Start Date End Date Elsewhere, Pcp PCP - General Family Medicine 03/11/21 documented as of this encounter
--- OUTSIDE RECORDS SUMMARY | 2022-04-03 11:08 | XMS_ITS | Encounter Summary ---
:1955 Author Organization [facility] Address [address] [place] [address] Care Team Providers Name Role Phone Elsewhere, Pcp Primary Care Provider Unavailable Reason for Visit Reason Comments Surgical Listing ortho Encounter Details Date Type Department Care Team Description 05/20/2021 Clinical Department of Parisa Michael Surgical Li sting Communication Orthopedic Surgery L, L.P.N. (ortho ) in [address] [address] [place] [address] Social History Tobacco Use Types Packs/Day Years Used Date Smoking Tobacco: Every Day Smokeless Tobacco: Never Alcohol Use Standard Drinks/Week Comments Yes 0 (1 standard drink = 0.6 oz pure alcoho l) Sex Assigned at Date Recorded Not on file documented as of this encounter Miscellaneous Notes Telephone Encounter - Parisa Michael L.P.N. - 05/20/2021 8:44 AM ARC CUTTER Right wrist ORIF with DR Tineo on 05/26/21. CUTTER documented in this encounter Plan of Treatment Not on filedocumented as of this encounter Visit Diagnoses Not on filedocumented in this encounter Care Teams Division Leader Relationship Specialty Start Date End Date Elsewhere, Pcp PCP - General Family Medicine 03/11/21 documented as of this encounter
--- OUTSIDE RECORDS SUMMARY | 2022-04-03 11:08 | XMS_ITS | Encounter Summary ---
:1955 Author Organization [facility] Address [address] [place] [address] Care Team Providers Name Role Phone Unavailable Primary Care Provider Unavailable Encounter Details Date Type Department Care Team Description 06/18/2012 Hospital Encounter HX NO MAPPING Provider, Historical Social History Tobacco Use Types Packs/Day Years Used Date Smoking Tobacco: Never Assessed Sex Assigned at Date Recorded Not on file documented as of this encounter Medications at Time of Discharge Medication Sig Dispensed Refills Start Date End Date atenolol (TENORMIN) 100 Take 1 tablet by 0 2011 mg tablet mouth daily. calcium carbonate-vitamin Take by mouth. 0 2007 D3 1,500 mg (600 mg calcium)-200 unit per tablet amLODIPine (NORVASC) 10 Take 1 tablet by 0 201105/26/2021 mg tablet mouth daily. insulin glargine (LANTUS Inject 9 Units under 0 0 12/21/2011 05/26/2021 U-100 INSULIN) 100 the skin at bedtime. unit/mL injection documented as of this encounter Miscellaneous Notes Miscellaneous - Cheli Paulino, CCS-P - 06/18/2012 12:00 AM CST [id number] [facility] in [place] [address] [facility] [address] [place] [address] [place] [address] Attn: Billing Office: Our [place] patient, Bella Jones, had surgery with Dr. Taiwo Manuel MD. In an effort to coordinate the billing for the post-operative care, our office is providing the following information: All post-op care will be provided by your physician. WE BILLED: CPT CODE(S): 00028-77-MS DATE OF SERVICE: 06/14/12 DIAGNOSIS: 366.16 POST OP CARE TURNED OVER: 06/15/12 If there are any questions or concerns, please call Cheli at [phone] in Health Information Management. Thank You Source: [facility] Document Id: [id number] documented in this encounter Plan of Treatment Not on filedocumented as of this encounter Visit Diagnoses Not on filedocumented in this encounter
--- OUTSIDE RECORDS SUMMARY | 2022-04-03 11:08 | XMS_ITS | Encounter Summary ---
:1955 Author Organization [facility] Address [address] [place] [address] Care Team Providers Name Role Phone Unavailable Primary Care Provider Unavailable Reason for Visit Reason Comments Jaw Pain left side of jaw swollen. [place] in 04/11 Encounter Details Date Type Department Care Team Description 10/12/2019 Emergency [place] [facility] Ovidio Soto Abscess Dental (Primary Department M.D. Dx) [id number] [address] [place] [phone] [address] Social History Tobacco Use Types Packs/Day Years Used Date Smoking Tobacco: Every Day Smokeless Tobacco: Never Alcohol Use Standard Drinks/Week Comments Yes 0 (1 standard drink = 0.6 oz pure alcoho l) Sex Assigned at Date Recorded Not on file documented as of this encounter Last Filed Vital Signs Vital Sign Reading Time Taken Comments Blood Pressure 154/65 10/12/2019 5:36 PM CDT Pulse 69 10/12/2019 5:36 PM CDT Temperature 36 ??C (96.8 ??F) 10/12/2019 5:36 PM CDT Respiratory Rate 18 10/12/2019 5:36 PM CDT Oxygen Saturation 98% 10/12/2019 5:36 PM CDT Inhaled Oxygen Concentration - - Weight 48.6 kg (107 lb 2.3 oz) 10/12/2019 5:36 PM CDT Height - - Body Mass Index 18.98 06/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 - 10/12/2019 5:47 PM CDT See Dentist [place] documented in this encounter Medications at Time of Discharge Medication Sig Dispensed Refills Start Date End Date alendronate (FOSAMAX) TAKE 1 TABLET BY MOUTH 0 70 mg tablet 1 TIME A WEEK IN THE MORNING ON AN EMPTY STOMACH AND WITH FULL GLASS OF WATER. DO NOT LIE DOWN FOR 1 HOUR amLODIPine (NORVASC) Take 10 mg by mouth. 0 11/15 10 mg tablet atenolol (TENORMIN) Take 1 tablet by mouth 0 05/04 100 mg tablet daily. atorvastatin (LIPITOR) Take 10 [...] 0 2018 U-100 0.3 mL 31 gauge insulin at home. x 11/15 syringe levETIRAcetam (KEPPRA) Take 250 mg by mouth 2 0 0 09/28/2013 250 mg tablet (two) times a day. levETIRAcetam (KEPPRA) Take 750 mg by mouth. 0 750 mg tablet lisinopril Take 10 mg by mouth. 0 01/23/2018 (PRINIVIL,ZESTRIL) 20 mg tablet metoprolol succinate Take 200 mg by mouth. 0 10/02 (TOPROL-XL) 200 mg 24 hr tablet sertraline (ZOLOFT) 50 Take 50 mg by mouth. 0 mg tablet traZODone (DESYREL) 50 TAKE 2 TABLETS BY 0 2018 mg tablet MOUTH AT BEDTIME clindamycin (CLEOCIN) Take 1 capsule (300 mg 40 capsule 0 10/22/2019 300 mg capsule total) by mouth every 6 (six) hours for 10 days. amLODIPine (NORVASC) Take 1 tablet by mouth 0 05/26/2021 10 mg tablet daily. insulin glargine Inject 9 Units under 0 2 05/26/2021 (LANTUS U-100 INSULIN) the skin at bedtime. 100 unit/mL injection lisinopril Take 40 mg by mouth 0 09/28/201305/26 (PRINIVIL,ZESTRIL) 40 daily. mg tablet documented as of this encounter ED Notes Ovidio Soto M.D. - 10/12/2019 5:48 PM CDT SUBJECTIVE CHIEF COMPLAINT/REASON FOR VISIT Jaw Pain (left side of jaw swollen. Pain 04/11) HISTORY OF PRESENT ILLNESS Chronic poor dentition. Last couple days painful right jaw area REVIEW OF SYSTEMS Constitutional: Negative. HENT: Negative. Respiratory: Negative. Cardiovascular: Negative. Gastrointestinal: Negative. Endocrine: Negative. Genitourinary: Negative. Allergic/Immunologic: Negative. Neurological: Negative. OBJECTIVE Initial Vitals [10/12/19 1736] Temperature Pulse Rate Heart Rate Resp Rate Blood Pressure SpO2 36 ??C 69 -- 18 154/65 98 % Pain Score 10 - Worst possible pain PHYSICAL EXAMINATION Constitutional: Vital signs are normal. HENT: Nose: Nose normal. Mouth/Throat: Oropharynx is clear and moist. Mucous membranes are moist. Very poor dentition with caries and gingival erosion and erythema, wendy right lower ridge. Eyes: EOM are normal. Pupils are equal, round, and reactive to light. Extraocular Movements: EOM normal. Neck: Neck supple. Cardiovascular: Regular rhythm, S1 normal, S2 normal and normal peripheral perfusion. Pulmonary/Chest: Effort normal and breath sounds normal. Abdominal: Soft. Bowel sounds are normal. Musculoskeletal: Normal range of motion. Neurological: She is alert. Skin: Skin is warm. Psychiatric: She has a normal mood and affect. ASSESSMENT/PLAN Impression and Plan Dental abcess Prescribed clindamycin 300 mg qid x 10 d vicodin 1 q 4hr prn Final Diagnoses: as of Oct 12 1747 Abscess Dental Ovidio Soto M.D. 10/12/19 175 documented in this encounter Plan of Treatment Not on filedocumented as of this encounter Visit Diagnoses Diagnosis Abscess Dental - Primary documented in this encounter
--- OUTSIDE RECORDS SUMMARY | 2022-04-03 11:08 | XMS_ITS | Encounter Summary ---
:1955 Author Organization [facility] Address [address] [place] [address] Care Team Providers Name Role Phone Elsewhere, Pcp Primary Care Provider Unavailable Reason for Referral Outpatient (Routine) - Closed Specialty Diagnoses / Procedures Referred By Contact Refer red To Contact Orthopedic Surgery Jorden Tineo M. D. [address] [place] [address] Referral ID Status Reason Start Date Expiration Date Visits Requ ested Visits Authorized [id number] Closed 05/26/2021 05/26/2022 1 1 Scheduling Instructions Ordered images/tests are associated with this appointment. EL APPLIER Reason for Visit Auth/Cert Specialty Diagnoses / Procedures Referred By Contact Refer red To Contact Diagnoses Fracture Radius Colles Closed Initial Right Fracture Radius Colles Closed Initial Right [S52.531A] Procedures IN CLSD TX RDL & ULNAR FX WO MANIP IN CLSD TX RDL & ULNAR FX W MANIP IN OPN TX RDL&ULN FX W FIX RAD/ULN IN OPN TX RDL&ULN FX W FIX RAD&ULN IN OPN TX CARPAL SCPHD FX W FIX OPEN REDUCTION INTERNAL FIXATION WRIST-Right Referral ID Status Reason Start Date Expiration Date Visits Requ ested Visits Authorized [id number] 1 1 Encounter Details Date Type Department Care Team Description 05/26/2021 Hospital Encounter [facility] TESS Tineo, Fracture Radius Colles Close d Initial Right (Primary Dx); Merle9 SHAYE Leonardo M.D. Fracture Radius Distal Other Closed Init ial Right PATSY JONES [address] [facility] [address] [place] [phone] [id number] Social History Tobacco Use Types Packs/Day Years [...] Sign Reading Time Taken Comments Blood Pressure 128/56 05/26/2021 3:45 PM ENAMEL APPLIER Pulse 60 05/26/2021 3:50 PM ENAMEL APPLIER Temperature 36.1 ??C (97 ??F) 05/26/2021 3:00 PM ENAMEL APPLIER Respiratory Rate 16 05/26/2021 11:11 AM ENAMEL APPLIER Oxygen Saturation 96% 05/26/2021 3:50 PM ENAMEL APPLIER Inhaled Oxygen Concentration - - Weight 47.8 kg (105 lb 6.1 oz) 05/26/2021 11:11 AM ENAMEL APPLIER Height - - Body Mass Index 19.27 05/14/2021 4:46 PM ENAMEL APPLIER documented in this encounter Medications at Time [...] patient agreed to proceed. Jorden Tineo M.D. EL APPLIER Source Note - Lorenza Petersen M.D. - 05/26/2021 11:58 AM ENAMEL APPLIER Preprocedure Anesthesia & H&P Assessment Procedure Summary Date/Time: 05/26/21 1200 Procedure: OPEN REDUCTION INTERNAL FIXATION WRIST-Right (Right ) Diagnosis: Fracture Radius Colles Closed Initial Right [S52.531A] Pre-op diagnosis: Fracture Radius Colles Closed Initial Right [S52.531A] Location: OR 02 [facility] - GI Surgeons: Jorden Tineo M.D. Pertinent [...] with patient /legal guardian or through an lang interpreter. The use of blood products not discussed Approval to Proceed: approved for anesthesia EL APPLIER documented in this encounter OR Notes Op [...] Jorden Tineo M.D. CT CT Job ID: [id number] EL APPLIER Brief Op Note - Jorden Tineo M.D. - 05/26/2021 1:06 PM CST Pre-op Diagnosis Fracture Radius Colles Closed Initial Right Post-op Diagnosis Fracture Radius Colles Closed Initial Right ORIF right metaphyseal distal radius fracture Findings As expected. Complications None Jorden Tineo M.D. EL APPLIER documented in this encounter Plan of Treatment Scheduled Referrals Name Type Priority Associated Order Schedule Diagnoses Orthopedic Surgery Outpatient Referral Routine Ex pected: Post Op (clinic) 06/09/2021 (Approximate), Expires: 05/26/2024 documented as of this encounter Procedures Procedure Name Priority Date/Time Associated Comments Diagnosis GLUCOSE POCT, B Routine 05/26/2021 3:37 Results f or this PM ENAMEL APPLIER procedure are i n the results section. FL FLUORO LESS RAD - Routine 05/26/2021 2:35 Fracture Radius Result s for this THAN 1 HOUR (most inpatients PM ENAMEL APPLIER Distal Other procedure a re in and all Closed Initial the results outpatients) Right section. GLUCOSE POCT, B Routine 05/26/2021 2:23 Results f or this PM ENAMEL APPLIER procedure are i n the results section. OPEN REDUCTION 05/26/2021 1:47 Fracture Radius INTERNAL FIXATION PM ENAMEL APPLIER Colles Closed WRIST Initial Right GLUCOSE POCT, B Routine 05/26/2021 1:13 Results f or this PM ENAMEL APPLIER procedure are i n the results section. GLUCOSE POCT, B Routine 05/26/2021 11:38 Results for this AM ENAMEL APPLIER procedure are i n the results section. documented in this encounter Results Glucose, POCT (05/26/2021 3:37 PM ENAMEL APPLIER) P athologist Signature Glucose, POCT, 85 70 - 140 05/26/2021 [facility] B mg/dL 3:37 PM ENAMEL APPLIER Specimen Anatomical Collection Method Collection Time Receive d Time (Source) Location / / Volume Laterality Blood 05/26/2021 3:37 PM 3:48 ENAMEL APPLIER PM ENAMEL APPLIER Generic Rals LAB POCT ORDERABLES-MANUAL Performing Organization Address City/State/ZIP Code Phon e Number [facility]- [address] [place], [place] [address] [place] [address] System in [place] [address] [place] Fluoro Less Than 1 Hour (05/26/2021 2:35 PM ENAMEL APPLIER) Specimen (Source) Anatomical Location Collection Method / Collectio n Time Received Time / Laterality Volume Narrative 8000 [address] SEMN - 05/26/2021 2:39 PM ENAMEL APPLIER This exam does not require a radiologist review or interpretation. Please refer to the patient's medical record on this date for clinical details. Jorden Tineo M.D. IMG FLUOROSCOPY PROCEDURES Performing Organization Address City/State/ZIP Code Phon e Number [address] Glucose, POCT (05/26/2021 2:23 PM ENAMEL APPLIER) P athologist Signature Glucose, POCT, 78 70 - 140 05/26/2021 [facility] B mg/dL 2:23 PM ENAMEL APPLIER Specimen Anatomical Collection Method Collection Time Receive d Time (Source) Location / / Volume Laterality Blood 05/26/2021 2:23 PM 2:31 ENAMEL APPLIER PM ENAMEL APPLIER Generic Rals LAB POCT ORDERABLES-MANUAL Performing Organization Address [facility] Code Phon e Number [facility]- [address] [place], [place] [address] [address] [place] [address] System in [place] [address] [place] Glucose, POCT (05/26/2021 1:13 PM ENAMEL APPLIER) athologist Signature Glucose, POCT, 89 70 - 140 05/26/2021 [facility] B mg/dL 1:13 PM ENAMEL APPLIER Specimen Anatomical Collection Method Collection Time Receive d Time (Source) Location / / Volume Laterality Blood 05/26/2021 1:13 PM 1:21 ENAMEL APPLIER PM ENAMEL APPLIER Generic Rals LAB POCT ORDERABLES-MANUAL Performing Organization Address City/[facility]/ZIP Code Phon e Number [facility]- [address] [place], [place] [address] [place] [facility] [place] [address] System in [place] [address] [place] Glucose, POCT (05/26/2021 11:38 AM ENAMEL APPLIER) P athologist Signature Glucose, POCT, 121 70 - 140 05/26/2021 [facility] B mg/dL 11:38 AM ENAMEL APPLIER Specimen Anatomical Collection Method Collection Time Receive d Time (Source) Location / / Volume Laterality Blood 05/26/2021 11:38 05/26/2021 AM ENAMEL APPLIER 11:47 AM ENAMEL APPLIER Generic Rals LAB POCT ORDERABLES-MANUAL Performing Organization Address City/State/ZIP Code Phon e Number [facility]- [address] [place], [place] [address] [address] [place] [address] System in [place] [address] [place] documented in this encounter Visit Diagnoses Diagnosis Fracture Radius Colles Closed Initial Ri ght - Primary Fracture Radius Distal Other Closed Init ial Right documented in this encounter Admitting Diagnoses Diagnosis Fracture Radius Colles Closed Initial Ri ght documented in this encounter Administered Medications Inactive Administered Medications - up to 3 most recent administrations Medication Order MAR Action Action Date Dose Rate Site acetaminophen tablet 1,000 mg Given 05/26/2021 11:24 AM ENAMEL APPLIER 1,00 0 mg (TYLENOL) 1,000 mg, oral, Once, On Mon05/26/21 at 1045, For 1 dose, Pre-Op lactated ringers Restarted 05/26/2021 1:47 PM ENAMEL APPLIER 20 mL/hr, intravenous, Continuous, Starting on Mon05/26/21 at 1045 Rate/Dose Verify 05/26/2021 1:17 PM ENAMEL APPLIER 20 mL/hr New Bag 05/26/2021 11:24 AM ENAMEL APPLIER 20 mL/hr 20 mL/hr oxyCODONE IR tablet [...] Recently Administered Medications Times are shown in ENAMEL APPLIER. Scheduled Medication Order 05/24/2021 05/25/2021 05/26/2021 acetaminophen [...] 1124 (New Bag - Provider: Jeannie Guerrier R.N.)1317 (Rate/Dose Verify - Provider: Ulisses Posada APRN, CRNA, R.N.)1346 (Paused - Provider: Jak Josue APRN, CRNA, D.N.P. - Comment: Switch to gravity) 20 mL/hr, intravenous, Continuous, Starting on Mon05/26/21 at 1 045 1347 (Restarted - Provider: Jak Josue APRN, KATERIN, D.N.P.)1435 (Anesthesia Volume Adjustment - Provider: Jak Josue APRN, CRNA, D.N.P.) lactated ringers 1550 (Stopped - Provider: Sherry Zafar R.N.) 20 mL/hr, intravenous, Continuous, Start ing on [...] is greater than 7 after scheduled and IN N regimen exhausted. If pain remains greater [...] hours).
documented in this encounter Care Teams Salon Receptionist Relationship Specialty Start Date End Date Elsewhere, Pcp PCP - General Family Medicine 03/11/21 documented as of this encounter
--- OUTSIDE RECORDS SUMMARY | 2022-04-03 11:08 | XMS_ITS | Encounter Summary ---
:1955 Author Organization [facility] Address [address] [place] [address] Care Team Providers Name Role Phone Unavailable Primary Care Provider Unavailable Encounter Details Date Type Department Care Team Description 06/08/2012 Hospital Encounter HX NO MAPPING Provider, Historical [...] unit/mL injection documented as of this encounter Plan of Treatment Not on filedocumented as of this encounter Visit Diagnoses Not on filedocumented in this encounter
--- OUTSIDE RECORDS SUMMARY | 2022-04-03 11:08 | XMS_ITS | Encounter Summary ---
:1955 Author Organization [facility] Address [address] [place] [address] Care Team Providers Name Role Phone Unavailable Primary Care Provider Unavailable Reason for Visit Reason Comments Spasms Encounter Details Date Type Department Care Team Description 02/03/2019 Emergency [place] Mark Sun Undiff erentiated Emergency Department Pretty Garcia, M.A. (Primary Dx) [address] [place] [address] [place] [id number] [phone] Social History Tobacco Use Types Packs/Day Years Used Date Smoking Tobacco: Every Day Smokeless Tobacco: Never Alcohol Use Standard Drinks/Week Comments Yes 0 (1 standard drink = 0.6 oz pure alcoho l) Sex Assigned at Date Recorded Not on file documented as of this encounter Last Filed Vital Signs Vital Sign Reading Time Taken Comments Blood Pressure 126/57 02/03/2019 3:00 AM CDT Pulse 73 02/03/2019 3:00 AM CDT Temperature 35.9 ??C (96.6 ??F) 02/03/2019 2:26 AM CDT Respiratory Rate 20 02/03/2019 2:26 AM CDT Oxygen Saturation 93% 02/03/2019 3:00 AM CDT Inhaled Oxygen Concentration - - Weight 52.4 kg (115 lb 8.3 oz) 02/03/2019 2:26 AM CDT Height - - Body Mass Index 20.47 06/14/2012 8:20 AM MILL HAND PLATE MILL documented in this encounter Discharge Instructions AttachmentsThe following attachments cannot be sent through Care Everywhere.Non- Epileptic Seizures Adult ([place]une[place])documented in this encounter Medications at Time of [...] gauge x insulin at home. 11/15 syringe levETIRAcetam (KEPPRA) Take 250 mg [...] 0 2018 mg tablet MOUTH AT BEDTIME amLODIPine (NORVASC) 10 Take 1 tablet by mouth 0 05/31/2012 05/26/2021 mg tablet daily. insulin glargine Inject 9 Units under 0 06/20/201 2 05/26/2021 (LANTUS U-100 INSULIN) the skin at bedtime. 100 unit/mL injection lisinopril Take 40 mg by mouth 0 09/28/201305/26 (PRINIVIL,ZESTRIL) 40 daily. mg tablet documented as of this encounter ED Notes Mark Sun M.D., M.A. - 02/03/2019 2:31 AM CDT SUBJECTIVE CHIEF COMPLAINT/REASON FOR VISIT Hypoglycemia HISTORY OF PRESENT ILLNESS Bella Jones is a 63 y.o. female with a past medical history of insulin controlled diabetes, seizure disorder of levetiracetam, and lower extremity neuropathy who presents emergency department with full body spasms. The patient had been in her usual state of health until earlier this morning. Shelives with a man in her his daughter and has for many years. They noticed that she was having full body spasm type activity and called paramedics. Paramedics arrived and found the patient to have a lowblood sugar, by patient report. They treated this with intravenous dextrose. Around this time, the patient's spasm activity stopped and she felt well and declined transport. The paramedics were called a gain about an hour and half later but found her blood sugar to be 140 and she they gave her no treatment. Both times, the patient declined transport to the emergency department. However, the patient began having these whole body spasms again and came by private vehicle to the emergency department for assessment. She had 1 episode of emesis well on the way to the emergency department. During the episode, the patient herself has difficulty providing history, but is responsive and ableto say that she is not having pain. The rest of the history was initially provided by family, but once the episode spontaneously aborted, the patient is able to verify. REVIEW OF SYSTEMS Constitutional: Negative for chills and fever. HENT: Negative for rhinorrhea and sore throat. Eyes: Negative for pain and visual disturbance. Respiratory: Negative for cough and shortness of breath. Cardiovascular: Negative for chest pain. Gastrointestinal: Negative for constipation, diarrhea, nausea and vomiting. Endocrine: Negative for polyuria. Genitourinary: Negative for dysuria and frequency. Musculoskeletal: Negative for arthralgias and myalgias. Skin: Negative for rash. Neurological: Negative for light-headedness and headaches. OBJECTIVE Initial Vitals [02/03/19 0226] Temperature Pulse Rate Heart Rate Resp Rate Blood Pressure SpO2 (!) 35.9 ??C 77 -- 20 144/74 99 % Pain Score -- PHYSICAL EXAMINATION Constitutional: Spasm like activity involving all 4 extremities spasm like activity involving all 4 extremities and the face the patient able to partially override it in order to follow commands in all 4 extremities and say 1 or 2 words occasionally. HENT: Head: Normocephalic and atraumatic. Nose: No nasal discharge. Eyes: Conjunctivae and EOM are normal. Neck: Normal range of motion. Neck supple. Cardiovascular: Normal rate. Pulmonary/Chest: Effort normal. No respiratory distress. Abdominal: She exhibits no distension. Musculoskeletal: She exhibits no deformity. Neurological: She is alert and oriented to person, place, and time. She is not disoriented. No cranial nerve deficit. She exhibits normal muscle tone. Coordination normal. Skin: Skin is normal color. Psychiatric: She has a normal mood and affect. Nursing note and vitals reviewed. ASSESSMENT/PLAN Impression and Plan Patient arrived in the Emergency Department and upon my initial assessment, patient was alert and inno acute distress but with whole-body spasm like movements. Vital signs were reviewed, history was obtained and physical exam was performed. During the initial interaction and while an IV was being established, the patient's movements spontaneously stopped. Once the movements and completely stop, the patient stated she felt well and had nose abnormal symptoms. Throughout the episode, the patient demonstrated normal vital signs. She was able to consciously follow instructions in all 4 extremities even during the peak of her spasm like activities. The reported recent history of having had a low blood sugar as measured by EMS suggests to me that at least the initial episode may have been related to hypoglycemia, though these movements would be unusual as a result of hypoglycemia. It is possible that could represent a neuroglycopenic autonomic dysfunction or behavioral episode. Her blood sugars upon arrival here in the emergency department, however, was above 200 and therefore I cannot attribute the episode I witnessed to hypoglycemia. The family was worried about seizure but this was not a seizure. She had involvement bilaterally and generalized, but remained conscious and interactive and able to follow commands. Obtain some basic laboratory studies including TSH. We will observe the patient in the emergency department and re-evaluate once labs have returned. Will also recheck her blood sugar prior to departureto ensure remains stable as the hypoglycemia that was described could be dangerous. However, given the normal vital signs, the lack of seizure activity, and lack of any other abnormalities or symptoms,pending laboratory results, I think that it could be safe for the patient to be discharged with outpatient follow-up as the episodes seem most consistent with a psychogenic origin. That said, the patient does not have a clear history available to me to suggest a psychiatric disorder and she denies anycontemporaneous life stressors. Disposition pending workup and re-evaluation.. ED Course as of Feb 03 033 Sun Feb 03, 2019 0304 Patient has a trace leukocytosis with left shift but this is nonspecific. White Blood Cell Count(!): 11.0 0316 Patient has mild hyponatremia, but this appears to be chronic according to results in Care everywhere documenting sodium levels as low as 126 over the last several years. Sodium, P(!): 128 0317 Patient's blood sugar is still rising. I do not think that she is at risk for hypoglycemia again unless and until she takes additional insulin. Glucose, P(!): 262 0318 Performed more in-depth review of her Care everywhere documentation. I cannot find any documentation describing the type of seizures she has had in the past. She appears to have been on a stable dose of levetiracetam for many years. 0322 The patient's TSH has a trace elevation, but I do not think this could explain her symptoms. TSH, Sensitive, S(!): 4.4 0322 After a laboratory evaluation I do not see any explanation for the patient's symptoms. She has not had a recurrence since she has been here. Will discuss with the patient and family their desired outcome. I think it is safe for them to go home and continue to monitor symptoms and follow up as an o utpatient with their primary care provider. 0336 Held a discussion with patient and left once who accompanied her. I think it is safe for her togo home. This syndrome seems most consistent to me with a non epileptiform spell. I recommended thatthey follow up with her primary care provider. Also advised him to return to the emergency department if she has another spell it is not stopping, but encouraged them to use calming techniques if she does have a spell. They were in agreement with this plan the patient was discharged in good condition. Final Diagnoses: as of Feb 03 337 Spells Undifferentiated Mark Sun M.D., M.A. 02/03/19336 Parisa Ro R.N. - 02/03/2019 2:28 AM CDT Pt having full body spasm. Unable to express herself during episode. Parisa Ro R.N. 02/03/19 023 Parisa Ro R.N. - 02/03/2019 2:00 AM CDT Pt presents to ER with concern of low blood sugar and patient having spasms. Ambulance was called 2xto patient house with no transport. 1st time ambulance called at 2300 pt blood sugar registered low she received IV and fluids. 0100 ambulance called again for seizure like activity. BG 140 and refuse transport. On arrival to ER pt BG 214. Parisa Ro R.N. 02/03/19 0238 documented in this encounter Plan of Treatment Not on filedocumented as of this encounter Procedures Procedure Name Priority Date/Time Associated Comments Diagnosis PROTHROMBIN TIME STAT 02/03/2019 2:39 AM Resul ts for this (PT), P CDT procedure are i n the results section. CBC WITH STAT 02/03/2019 2:39 AM Results f or this DIFFERENTIAL, B CDT procedure ar e in the results section. THYROID-STIMULATING STAT 02/03/2019 2:39 AM Re sults for this HORMONE-SENSITIVE CDT procedure are in (S-TSH) the results section. BASIC METABOLIC STAT 02/03/2019 2:39 AM Result s for this PANEL, S/P CDT procedure are i n the results section. GLUCOSE POCT, B Routine 02/03/2019 2:00 AM Result s for this CDT procedure are i n the results section. documented in this encounter Results (ABNORMAL) S-TSH (Thyroid-Stimulating Hormone - Sensitive) (02/03/2019 2:39 AM CDT) athologist Signature TSH, Sensitive 4.4 (H) 0.3 - 4.2 02/03/2019 mIU/L 3:21 AM CDT Comment: Biotin has been identified by the deidra rodrigues as a potential interfering substance. ??Higher concentr ations of biotin may be found in multivitamins, hair/nail supple ments, and workout supplements. ??If the result does not ma h clinical observations, repeat testing after patient refrains fr om the use of supplements for at least 12 hours. Specimen Anatomical Collection Method Collection Time Receive d Time (Source) Location / / Volume Laterality Blood (Blood, 02/03/2019 2:39 AM 02/04/20 2:44 Venous) CDT AM CDT Mark Sun M.D., M.A. LAB BLOOD ADD-ON Performing Organization Address [facility] Phon e Number [place] [phone] [place] PT (Prothrombin Time) with INR (02/03/2019 2:39 AM CDT) athologist Signature Prothrombin 9.9 8.8 - 11.9 02/03/2019 Time, P sec 3:15 AM CDT INR 1.0 0.9 - 1.2 02/03/2019 3:15 AM CDT Comment: Standard intensity warfarin therapeutic range: 2.0 to 3.0 High intensity warfarin therapeutic rang e: 2.5 to 3.5 Specimen Anatomical Collection Method Collection Time Receive d Time (Source) Location / / Volume Laterality Blood (Blood, 02/03/2019 2:39 AM 02/04/20 19 2:44 Venous) CDT AM CDT Mark Sun M.D., M.A. LAB BLOOD ADD-ON Performing Organization Address [facility] Phon e Number [address] [address] [place] (ABNORMAL) CBC with Differential (02/03/2019 2:39 AM CDT) Patholo gist Method Time Signature Hemoglobin 13.7 11.6 - 02/03/2019 15.0 g/dL 2:50 AM CDT Hematocrit 37.9 35.5 - 02/03/2019 44.9 % 2:50 AM CDT Erythrocytes 4.27 3.92 - 02/03/2019 5.13 2:50 AM CDT x10(12)/L MCV 88.8 78.2 - 02/03/2019 97.9 fL 2:50 AM CDT RBC Distrib Width 11.3 (L) 12.2 - 02/03/2019 16.1 % 2:50 AM CDT Platelet Count 314 157 - 371 02/03/2019 x10(9)/L 2:50 AM CDT Leukocytes 11.0 (H) 3.4 - 9.6 02/03/2019 x10(9)/L 2:50 AM CDT Neutrophils 8.81 (H) 1.56 - 02/03/2019 6.45 2:50 AM CDT x10(9)/L Lymphocytes 1.28 0.95 - 02/03/2019 3.07 2:50 AM CDT x10(9)/L Monocytes 0.77 0.26 - 02/03/2019 0.81 2:50 AM CDT x10(9)/L Eosinophils 0.07 0.03 - 02/03/2019 0.48 2:50 AM CDT x10(9)/L Basophils 0.05 0.01 - 02/03/2019 0.08 2:50 AM CDT x10(9)/L Specimen Anatomical Collection Method Collection Time Receive d Time (Source) Location / / Volume Laterality Blood (Blood, 02/03/2019 2:39 AM 02/04/20 19 2:44 Venous) CDT AM CDT Mark Sun M.D., M.A. LAB BLOOD ADD-ON Performing Organization Address City/State/ZIP Code Phon e Number [facility]- [phone] [address] [place] (ABNORMAL) BMP (Basic Metabolic Panel) (02/03/2019 2:39 AM CDT) Analysis Performed At Patho logist Time Signature Potassium, P 3.8 3.6 - 5.2 02/03/2019 mmol/L 3:14 AM CDT Sodium, P 128 (L) 135 - 145 02/03/2019 mmol/L 3:14 AM CDT Chloride, P 88 (L) 98 - 107 02/03/2019 mmol/L 3:14 AM CDT Bicarbonate, P 27 22 - 29 02/03/2019 mmol/L 3:13 AM CDT Anion Gap, P 13 7 - 15 02/03/2019 3:14 AM CDT BUN (Blood Urea 10 6 - 21 02/03/2019 Nitrogen), P mg/dL 3:13 AM CDT Creatinine 0.51 (L) 0.59 - 02/03/2019 1.04 mg/dL 3:13 AM CDT eGFR-Black/Afri >90 >=60 02/03/2019 can Rw[place]an mL/min/BSA 3:13 AM CDT Comment: ----ADDITIONAL INFORMATION---- Estimated GFR calculated using the 2009 CKD_EPI creatinine equation. eGFR Non-Black/ >90 >=60 mL/min/BSA 3:13 AM CDT Comment: ----ADDITIONAL INFORMATION---- Estimated GFR calculated using the 2009 CKD_EPI creatinine equation. Calcium, Total, P 8.5 (L) 8.8 - 10.2 mg/dL 02/03/2019 3:13 AM CDT Glucose, P 262 (H) 70 - 140 mg/dL 02/03/2019 3:13 AM CDT Specimen Anatomical Collection Method Collection Time Receive d Time (Source) Location / / Volume Laterality Blood (Blood, 02/03/2019 2:39 AM 02/04/20 19 2:44 Venous) CDT AM CDT Mark Sun M.D., M.A. LAB BLOOD ADD-ON Performing Organization Address City/State/ZIP Code Phon e Number [facility]- [address] [place] [phone] [facility] (ABNORMAL) Glucose, POCT (02/03/2019 2:00 AM CDT) athologist Signature Glucose, POCT, 215 (H) 70 - 140 02/03/2019 B mg/dL 2:00 AM CDT Specimen Anatomical Collection Method Collection Time Receive d Time (Source) Location / / Volume Laterality Blood 02/03/2019 2:00 AM 9 2:07 CDT AM CDT Generic Rals LAB POCT ORDERABLES-MANUAL Performing Organization Address City/State/ZIP Code Phon e Number [facility]- [phone] [place] [address] [facility] documented in this encounter Visit Diagnoses Diagnosis Spells Undifferentiated - Primary documented in this encounter Administered Medications Inactive Administered Medications - up to 3 most recent administrations Medication Order MAR Action Action Date Dose Rate Site LORazepam injection 1 mg (ATIVAN) 1 mg, intravenous, Once as needed, other, spasm-like a ctivity, Starting on 02/03/19 at 0231, For 1 dose, For intraven ous use, dilute with equal volume of 0.9% NS documented in this encounter Active and Recently Administered Medications Times are shown in CDT. PRN Medication Order 02/01/2019 02/02/2019 02/03/2019 LORazepam injection 1 mg (ATIVAN) 1 mg, intravenous, Once as needed, other , spasm-like activity, Starting on 02/03/19 at 0231, For 1 dose, For intravenous use, dilute with equal volume of 0.9% NS documented in this encounter
--- OUTSIDE RECORDS SUMMARY | 2022-04-03 11:08 | XMS_ITS | Encounter Summary ---
:1955 Author Organization [facility] Address [address] [place] [address] Care Team Providers Name Role Phone Unavailable Primary Care Provider Unavailable Encounter Details Date Type Department Care Team Description 05/31/2012 Hospital Encounter HX NO MAPPING Remington Manuel M.D. [address] [place], [place] [phone] (Wo rk) Social History Tobacco Use Types [...]
--- OUTSIDE RECORDS SUMMARY | 2022-04-03 11:08 | XMS_ITS | Encounter Summary ---
:1955 Author Organization [facility] Address [address] [place] [address] Care Team Providers Name Role Phone Elsewhere, Pcp Primary Care Provider Unavailable Reason for Visit Reason Comments Med Refill Encounter Details Date Type Department Care Team Description 05/20/2021 Refill Department of Orthopedic Jenn Roa P.A.-C. Med Refill Surgery in [place], [place] [address] [facility] [address] [place] [address] [place] [address] [phone] Social History Tobacco Use Types Packs/Day Years Used Date Smoking Tobacco: Every Day Smokeless Tobacco: Never Alcohol Use Standard Drinks/Week Comments Yes 0 (1 standard drink = 0.6 oz pure alcoho l) Sex Assigned at Date Recorded Not on file documented as of this encounter Miscellaneous Notes Telephone Encounter - Parisa Michael LTamP.N. - 05/20/2021 9:01 AM FORENSIC MANAGER Entered in error NSIC MANAGER documented in this encounter Plan of Treatment Not on filedocumented as of this encounter Visit Diagnoses Not on filedocumented in this encounter Care Teams Body Die Maker Relationship Specialty Start Date End Date Elsewhere, Pcp PCP - General Family Medicine 03/11/21 documented as of this encounter
--- OUTSIDE RECORDS SUMMARY | 2022-04-03 11:08 | XMS_ITS | Encounter Summary ---
:1955 Author Organization [facility] Address [address] [place] [address] Care Team Providers Name Role Phone Elsewhere, Pcp Primary Care Provider Unavailable Reason for Visit Reason Comments Circulatory Problem Pt has splint on rt arm. Pre sents with fingers swollen and cold. Encounter Details Date Type Department Care Team Description 05/17/2021 Emergency [facility] Serafin Davidson, Aftercare Fitting And Department P.A.-C. Adjustment Orthopedic [address] [address] [place] [address] Device (Primary Dx) [place], [place] [address] [address] [place], [place] [phone] [address] Social History Tobacco Use Types Packs/Day Years Used Date Smoking Tobacco: Every Day Smokeless Tobacco: Never Alcohol Use Standard Drinks/Week Comments Yes 0 (1 standard drink = 0.6 oz pure alcoho l) Sex Assigned at Date Recorded Not on file documented as of this encounter Last Filed Vital Signs Vital Sign Reading Time Taken Comments Blood Pressure 138/66 05/17/2021 1:16 AM GLOBE MOUNTER Pulse 65 05/17/2021 1:16 AM GLOBE MOUNTER Temperature 36.7 ??C (98.1 ??F) 05/17/2021 1:16 AM GLOBE MOUNTER Respiratory Rate 18 05/17/2021 1:16 AM GLOBE MOUNTER Oxygen Saturation 98% 05/17/2021 1:16 AM GLOBE MOUNTER Inhaled Oxygen Concentration - - Weight 47 kg (103 lb 9.9 oz) 05/17/2021 1:17 AM GLOBE MOUNTER Height - - Body Mass Index 18.95 05/14/2021 4:46 PM GLOBE MOUNTER documented in this encounter Discharge Instructions AttachmentsThe following attachments cannot be sent through Care Everywhere.Cast or Splint Care Adult (Citizen Of [place])documented in this encounter Medications at Time of [...] documented as of this encounter ED Notes Serafin Davidson P.A.-C. - 05/17/2021 1:35 AM CST SUBJECTIVE CHIEF COMPLAINT/REASON FOR VISIT Circulatory Problem (Pt has splint on rt arm. Presents with fingers swollen and cold.) HISTORY OF PRESENT ILLNESS 65-year-old female returns ER with complaints of swelling to right hand. She was recently seen in this ER placed in a splint for the wrist fracture. She states that she has not been elevating her arm and believes this is contributing to her right hand swelling. She states the swelling has improved since arriving to the ER where she has elevated her hand. She denies numbness, tingling, pulselessness, or being cold to the touch. REVIEW OF SYSTEMS Constitutional: Negative for appetite change and fever. HENT: Negative for ear pain, rhinorrhea and sore throat. Eyes: Negative for visual disturbance. Respiratory: Negative for cough, shortness of breath and wheezing. Cardiovascular: Negative for chest pain. Gastrointestinal: Negative for abdominal pain, diarrhea and vomiting. Genitourinary: Negative for dysuria and frequency. Musculoskeletal: Negative except for HPI Skin: Negative for rash. Neurological: Negative for headaches. All other systems reviewed and are negative. OBJECTIVE Initial Vitals [05/17/21 0116] Temperature Pulse Rate Heart Rate Resp Rate Blood Pressure SpO2 36.7 ??C 65 -- 18 138/66 98 % Pain Score -- PHYSICAL EXAMINATION Constitutional: Nursing note and vitals reviewed. HENT: Head: Normocephalic and atraumatic. Nose: Nose normal. Mouth/Throat: Oropharynx is clear and moist. Mucous membranes are moist. Neck: Neck supple. Cardiovascular: Normal rate, regular rhythm, S1 normal, S2 normal and normal heart sounds. Pulmonary/Chest: Effort normal and breath sounds normal. Abdominal: Soft. Bowel sounds are normal. There is no abdominal tenderness. Musculoskeletal: Cervical back: Neck supple. Comments: Splint is in place to right upper extremity. Patient is neurovascular intact distally. Nosigns or symptoms of compartment syndrome. They strep hold the splint in place was loosened slightlywhich did alleviate patient's discomfort according the patient. Neurological: Alert and oriented to person, place, and time. Skin: Skin is warm. ASSESSMENT/PLAN IMPRESSION AND PLAN Splint is in place to right upper extremity. Patient is neurovascular intact distally. No signs or symptoms of compartment syndrome. They strep hold the splint in place was loosened slightly which did alleviate patient's discomfort according the patient. We discussed the signs and symptoms of compartment syndrome along with return to ER warnings. Patient is scheduled to see orthopedics. She is discharged good condition. I reviewed previous medical records including documentation from previous visits and radiology images/report. Final Diagnoses: as of 05/20/212044 Aftercare Fitting And Adjustment Orthopedic Device Serafin Davidson, PAna.Vijay. 05/20/212044 E MOUNTER documented in this encounter Plan of Treatment Not on filedocumented as of this encounter Visit Diagnoses Diagnosis Aftercare Fitting And Adjustment Orthope dic Device - Primary documented in this encounter Care Teams Wheat Washer Relationship Specialty Start Date End Date Elsewhere, Pcp PCP - General Family Medicine 03/11/21 documented as of this encounter
--- OUTSIDE RECORDS SUMMARY | 2022-04-03 11:08 | XMS_ITS | Encounter Summary ---
:1955 Author Organization [facility] Address [address] [place] [address] Care Team Providers Name Role Phone Unavailable Primary Care Provider Unavailable Encounter Details Date Type Department Care Team Description 05/03/2012 Hospital Encounter HX NO MAPPING Provider, Historical Social History Tobacco Use Types Packs/Day Years Used Date Smoking Tobacco: Never Assessed Sex Assigned at Date Recorded Not on file documented as of this encounter Medications at Time of Discharge Medication Sig Dispensed Refills Start Date End Date calcium carbonate-vitamin Take by mouth. 0 2007 D3 1,500 mg (600 mg calcium)-200 unit per tablet insulin glargine (LANTUS Inject 9 Units under 0 0 12/21/2011 05/26/2021 U-100 INSULIN) 100 the skin at bedtime. unit/mL injection documented as of this encounter Plan of Treatment Not on filedocumented as of this encounter Visit Diagnoses Not on filedocumented in this encounter
--- OUTSIDE RECORDS SUMMARY | 2022-04-03 11:08 | XMS_ITS | Encounter Summary ---
:1955 Author Organization [facility] Address [address] [place] [address] Care Team Providers Name Role Phone Unavailable Primary Care Provider Unavailable Encounter Details Date Type Department Care Team Description 12/07/2014 Hospital Encounter HX [facility] ED Gabbie Greenwood M.D. [address] [place] [address] [phone] (Wo rk) Social History Tobacco Use Types Packs/Day Years Used Date Smoking Tobacco: Never Assessed Sex Assigned at Date Recorded Not on file documented as of this encounter Last Filed Vital Signs Vital Sign Reading Time Taken Comments Blood Pressure 151/74 12/07/2014 9:42 AM CDT Pulse 89 12/07/2014 9:42 AM CDT Temperature - - Respiratory Rate 16 12/07/2014 9:42 AM CDT Oxygen Saturation - - Inhaled Oxygen Concentration - - Weight - - Height - - Body Mass Index - - documented in this encounter Discharge Summaries David Avery R.N. - 12/07/2014 11:01 AM CDT ED Depart Summary [facility] Clinical Discharge Summary PERSON INFORMATION Name MARCO A ORDONEZ Age 59 Years 1955 12:00 AM Sex Female Language Lao PCP PCP, ELSEWHERE Marital Status Visit Id Visit Reason Ankle injury - Minor; ankle injury Specialty Enc Type Emergency Med Service Emergency Medicine Referred by Track Group [facility] ED Discharge 12/07/2014 11:01 AM Tracking Id [id number] Checkout 12/07/2014 11:01 AM Checkin 12/07/2014 9:38 AM Acuity 4 -Less Urgent Dispo Type * Discharged to Home or Self Care Arrival 12/07/2014 9:38 AM Reg Status Complete LOS 000 01:23 Address: [address] [phone] Comment: PROVIDER INFORMATION Provider Role Provider Contact Time PENG GREENWOOD MD ED Provider 12/07/14 09:39 DAVID AVERY MELTER CLERK Nurse 12/07/14 09:42 DIAGNOSIS Fracture Metatarsal Bone Closed Initial L Comment: PATIENT EDUCATION INFORMATION Instructions: FRACTURE, Foot Follow up: With: Address: When: Follow up with primary care provider Within 1 - 2 weeks Comments: No work on 12/08 and 12/09. Source: [facility] [employer] Document Id: [id number] David Avery R.N. - 12/07/2014 11:01 AM CDT ED Discharge Instructions [address] [address] Name: MARCO A ORDONEZ Date of : 1955 12:00 AM Visit Date: 12/07/2014 9:38 AM [facility] Number: [id number] Address: [address] [phone] Primary Care Provider: PCP, FREDIS IMPORTANT: [facility] in [place] would like to thank you for allowing us to assist you with your healthcare needs. The following includes patient education materials and informationregarding your injury/illness. Diagnosis: Fracture Metatarsal Bone Closed Initial L Follow-Up Instructions: With: Address: When: Follow up with primary care provider Within 1 - 2 weeks Comments: No work on 12/08 and 12/09. Your Upcoming Appointments: Date Time Location Provider No Appointments found Patient Education Materials: Fracture:Foot You have a fracture (break) of one of the bones in your foot. This will cause pain, swelling and sometimes bruising. It will take about 4-6 weeks to heal. A foot fracture may be treated with a special shoe, splint, cast or boot. Home Care: ?? You may be given a splint, cast, shoe or boot to prevent movement at the injury. ?? Keep your leg elevated to reduce pain and swelling. When sleeping, place a pillow under the injured leg. When sitting, support the injured leg so it is level with your waist. This is very important during the first 48 hours. ?? Apply an ice pack (ice cubes in a plastic bag, wrapped in a towel) over the injured area for 20 minutes every 1-2 hours the first day. You can place the ice pack directly over the splint/cast. Unless told otherwise, you can open the boot or shoe to apply ice. Continue with ice packs 3-4 times a dayfor the next two days, then as needed for the relief of pain and swelling. ?? Keep the splint/cast/boot/shoe dry. ?? You may use acetaminophen (Tylenol) or ibuprofen (Motrin, Advil) to control pain, unless another pain medicine was prescribed. [NOTE: If you have chronic liver or kidney disease or ever had a stomach ulcer or GI bleeding, talk with your doctor before using these medicines.] Follow Up with your doctor within two weeks, or as advised by our staff, to be sure the bone is healing properly. If you were given a splint, it may be changed to a cast or boot at your follow-up visit. [NOTE: Aradiologist will review any X-rays that were taken. We will notify you of any new findings that may affect your care.] Get Prompt Medical Attention if any of the following occur: ?? The plaster cast or splint becomes wet or soft ?? The fiberglass cast or splint remains wet for more than 24 hours ?? Increased tightness or pain under the cast or splint ?? Toes become swollen, cold, blue, numb or tingly ?? [id number] Daniella Paulson, [address] [place] [address], [place] [address]. All rights reserved. This information is not intended as a substitute for professional medical care. Always follow your healthcare professional's instructions. ED Tests and Procedures: Order Status XR Ankle Left 3 or more views Completed XR Foot Left 3 or more views Completed Discharge Prescriptions & Home Medications: Medication/Strength Dose Route Frequency Indications/Special Instructions/Comments/Notes oxyCODONE (oxyCODONE 5 mg oral tablet) 10 mg Oral every 6 hours as needed for pain lisinopril (lisinopril 40 mg oral tablet) 40 mg Oral once a day levetiracetam (levETIRAcetam 250 mg oral tablet) 250 mg Oral two times a day atenolol (atenolol 100 mg oral tablet) 100 mg Oral once a day amlodipine (amlodipine 10 mg oral tablet) 10 mg Oral once a day insulin glargine (Lantus 100 units/ml subcutaneous solution) 9 units Subcutaneous once a day (at bedtime) insulin regular (Novolin R) Subcutaneous Comment: Attention: If you have any medications at home not on this list, DO NOT take them until you contact your provider for clarification. Give a copy of your medication list to your primary care provider. Update your medication list any time medications or doses are changed and carry your medication list at all times in case of emergency. Medication Reconciliation: Reconciliation is a process of identifying the most accurate list of all medications a patient is taking - including name, dosage, frequency, and route - and using this list to provide to the patient information about how to take those medications. MARCO A ORDONEZ or krysten has reviewed the home medications you have listed with us. Review the following instructions: You have NOT received any prescriptions and you have told us you are not currently taking any home medications You have NOT received any prescriptions. You have been provided a discharge medications list and you may CONTINUE taking your medications as previously prescribed by your regular providers. You have received the listed prescriptions and BEGIN all listed prescriptions as directed. Since you have listed no home medications, please check with your family doctor if you are taking any other medications. You have received the listed prescriptions and BEGIN all listed prescriptions as directed. Youhave been provided a discharge medications list and you may CONTINUE all home medications as previously prescribed by your regular providers. You have received the listed prescriptions and BEGIN all listed prescriptions as directed. Youhave been provided a discharge medications list. The following CHANGES have been made to your medication list; Otherwise, CONTINUE all home medications as previously prescribed by your regular provider. IMPORTANT: We examined and treated you today on an emergency basis only. This was not a substitute for, or an effort to provide, complete medical care. In most cases, you must let your doctor check youagain. Tell your doctor about any new or lasting problems. We cannot recognize and treat all injuries or illnesses in one Emergency Department visit. If you had special tests, such as EKG's or X- rays, we will review them again within 24 hours. We will call you if there are any new suggestions. Please follow the instructions above carefully. If you are being transferred to another facility your followup plan of care will be determined by the receiving facility. If you are a patient that is being discharged from the Emergency Department after receiving narcotics or other medications that may impair your judgment you may be a risk to yourself or others if you operate a motor vehicle. We recommend that you arrange a ride home with a responsible constitution party. JOSÉ LUIS Rosario JUDY FAY , or responsible constitution party have received this information and my questions have been answered. I have discussed any challenges I see with this plan with the nurse or physician. Patient Signature or Responsible Green Party/Relationship Date Time Provider Signature Date Time Medication Reconciliation: Reconciliation is a process of identifying the most accurate list of all medications a patient is taking - including name, dosage, frequency, and route - and using this list to provide to the patient information about how to take those medications. MARCO A ORDONEZ or saadiaee has reviewed the home medications you have listed with us. Review the following instructions: You have NOT received any prescriptions and you have told us you are not currently taking any home medications You have NOT received any prescriptions. You have been provided a discharge medications list and you may CONTINUE taking your medications as previously prescribed by your regular providers. You have received the listed prescriptions and BEGIN all listed prescriptions as directed. Since you have listed no home medications, please check with your family doctor if you are taking any other medications. You have received the listed prescriptions and BEGIN all listed prescriptions as directed. Youhave been provided a discharge medications list and you may CONTINUE all home medications as previously prescribed by your regular providers. You have received the listed prescriptions and BEGIN all listed prescriptions as directed. Youhave been provided a discharge medications list. The following CHANGES have been made to your medication list; Otherwise, CONTINUE all home medications as previously prescribed by your regular provider. IMPORTANT: We examined and treated you today on an emergency basis only. This was not a substitute for, or an effort to provide, complete medical care. In most cases, you must let your doctor check youagain. Tell your doctor about any new or lasting problems. We cannot recognize and treat all injuries or illnesses in one Emergency Department visit. If you had special tests, such as EKG's or X- rays, we will review them again within 24 hours. We will call you if there are any new suggestions. Please follow the instructions above carefully. If you are being transferred to another facility your followup plan of care will be determined by the receiving facility. If you are a patient that is being discharged from the Emergency Department after receiving narcotics or other medications that may impair your judgment you may be a risk to yourself or others if you operate a motor vehicle. We recommend that you arrange a ride home with a responsible constitution party. JOSÉ LUIS Rosario JUDY FAY , or responsible constitution party have received this information and my questions have been answered. I have discussed any challenges I see with this plan with the nurse or physician. Patient Signature or Responsible Green Party/Relationship Date Time Provider Signature Date Time This document has images extracted. Please consider using [employer] for all your patient education needs. Source: [facility] POWERCHART Document Id: [id number] documented in this encounter Medications at Time of Discharge Medication Sig Dispensed Refills Start Date End Date atenolol (TENORMIN) 100 mg Take 1 tablet by 0 tablet mouth daily. calcium carbonate-vitamin Take by mouth. 0 2007 D3 1,500 mg (600 mg calcium)-200 unit per tablet levETIRAcetam (KEPPRA) 250 Take 250 mg by 0 09/28 mg tablet mouth 2 (two) times a day. amLODIPine (NORVASC) 10 mg Take 1 tablet by 0 05/26/2021 tablet mouth daily. insulin glargine (LANTUS Inject 9 Units 0 012 05/26/2021 U-100 INSULIN) 100 unit/mL under the skin at injection bedtime. lisinopril Take 40 mg by mouth 0 09/28/201305/26 (PRINIVIL,ZESTRIL) 40 mg daily. tablet documented as of this encounter ED Notes David Avery R.N. - 12/07/2014 11:01 AM CDT ED Disposition Summary ED Disposition Summary Entered On: 12/07/2014 11:01 CDT Performed On: 12/07/2014 11:01 CDT by DAVID AVERY RN ED Disposition Summary Accompanied By : Spouse Mode of Discharge : Wheelchair Transportation : Private vehicle Printed Discharge Instructions Given to Patient : Yes Patient Status at Discharge from ED : Improved DAVID AVERY RN - 12/07/2014 11:01 CDT [facility] Document Id: [id number] CDT!7 David Avery R.N. - 12/07/2014 11:01 AM CDT ED Pain Assessment ED Pain Assessment Entered On: 12/07/2014 11:01 CDT Performed On: 12/07/2014 11:01 CDT by DAVID AVERY RN Pain Assessment Pain Symptoms : Yes DAVID AVERY RN - 12/07/2014 11:01 CDT Pain Scale Pain Scale Verbal 0-10 : Open DAVID AVERY RN - 12/07/2014 11:01 CDT Pain Pain Assessment Grid Pain 1 Location : Foot Laterality : Left Intensity : 5 DAVID AVERY RN - 12/07/2014 11:01 CDT Source: [employer] Document Id: [id number] CDT!11 David Avery R.N. - 12/07/2014 10:58 AM CDT ED Treatments and Procedures ED Treatments and Procedures Entered On: 12/07/2014 11:00 CDT Performed On: 12/07/2014 10:58 CDT by DAVID AVERY RN Orthopedic Tx Orthopedic Treatment Instructions Given Treatment Site : Foot Treatment Laterality : Left Orthopedic Treatments Done : Dalton wrap applied Treatment Performed By : Cally Neurovascular Status Pretreatment : Neurovascular intact distal to injury, Pulses distal to injury palpable, Skin distal to injury warm and pink Neurovascular Status Posttreatment : Neurovascular intact distal to injury, Pulses distal to injury palpable, Skin distal to injury warm and pink Treatment Instructions Given : Dalton wrap instructions given DAVID AVERY RN - 12/07/2014 10:58 CDT Source: [employer] Document Id: [id number] CDT!11 David Avery R.N. - 12/07/2014 10:00 AM CDT ED Primary Assessment Document Has Been Updated ED Primary Assessment Entered On: 12/07/2014 10:04 CDT Performed On: 12/07/2014 10:00 CDT by DAVID AVERY RN Reason For Visit (As Of: 12/07/2014 10:04:12 CDT) Diagnoses(Active) Ankle injury - Minor Date: 12/07/2014 ; Diagnosis Type: Reason For Visit ; Confirmation: Complaint of ; Clinical Dx: Ankle injury - Minor ; Classification: Medical ; Clinical Service: Emergency medicine ; Code: PNED ; Probability: 0 ; Diagnosis Code: [id number] Triage Mode of Arrival ED : Private vehicle Track : Trauma Other Languages : Lao Treatments Prior to Arrival : None Is Patient Female and 13-50 no hysterectomy : No DAVID AVERY RN - 12/07/2014 10:00 CDT Pain Assessment Pain Symptoms : Yes DAVDI AVERY RN - 12/07/2014 10:00 CDT Respiratory Airway : Patent Respirations : Unlabored Respiratory Pattern : Regular DAVID AVERY RN - 12/07/2014 10:00 CDT Cardiovascular Heart Rhythm : Regular Skin Color : Normal for ethnicity Skin Description : Dry Skin Temperature : Warm DAVID AVERY RN - 12/07/2014 10:00 CDT Neurological Last Well Time Known : Not applicable Level of Consciousness : Alert Orientation : Oriented x 3 Characteristics of Speech : Appropriate for age DAVID AVERY RN - 12/07/2014 10:00 CDT ED Psychosocial Affect/Behavior : Calm, Cooperative, Appropriate Domestic Abuse Concerns : None Behavioral Health Screen/Safety Assmt : No DAVID AVERY RN - 12/07/2014 10:00 CDT Gastrointestinal Nutrition ED : Adequate DAVID AVERY RN - 12/07/2014 10:00 CDT Musculoskeletal Fall Prevention Education Provided : Yes DAVID AVERY RN - 12/07/2014 10:00 CDT Musculoskeletal Joint Assessment Grid Joint Assessment #1 Location : Ankle, left Assessment : Asymmetrical, Edema present, Enlarged, Tender to palpation Range of Motion : Limited motion, active, Limited motion, passive Neurovascular Status : Neurovascular intact distal to injury, Pulses distal to injury palpable, Skindistal to injury warm and pink DAVID AVERY RN - 12/07/2014 10:00 CDT Social Habits Tobacco Use/Currently Using : Yes Exposure to Tobacco Smoke : Patient smokes Smoking Status : Current every day smoker DAVID AVERY RN - 12/07/2014 10:00 CDT Tobacco Use Grid Type : Cigarettes Cigarette Use Packs/Day : 1 Last Use : 12/07 DAVID AVERY RN - 12/07/2014 10:00 CDT Recreational Drug Use Grid Drug Use : None DAVID AVERY RN - 12/07/2014 10:00 CDT Source: [employer] Document Id: [id number] CDT!49 Peng Greenwood M.D. - 12/07/2014 9:44 AM CDT Ankle injury - Minor Patient: MARCO A ORDONEZ Age: 59 years Sex: Female : 1955 Author: PENG GREENWOOD MD Attachments: None Associated Diagnosis: Fracture Metatarsal Bone Closed Initial L Basic Information Time seen: Date & time 12/07/2014 09:44:00. History source: Patient, significant other. Arrival mode: Private vehicle, walking. History limitation: None. Additional information: Chief Complaint from Nursing Triage Note : Chief Complaint Description 12/07/2014 9:42 CDT Chief Complaint Description patient presents with left lateral foot and ankle pain after she tripped after standing up from a chair . History of Present Illness Twisted her left ankle this morning while walking bare footed in her living room. It has become swollen at the lateral ankle, and there is bruising on the lateral midfoot. She is able to bear weight, but rates her pain a 10. She has taken nothing for pain prior to arrival. No other injuries. The patient presents with left, ankle injury. The onset was 3 hours ago. The course/duration of symptoms is constant. Type of injury: twisting. Location: Left ankle foot. The character of symptoms is pain and swelling. The degree at present is severe, 10 /10. The exacerbating factor is weight bearing.The relieving factor is none. The location where the incident occurred was at home. Risk factors consist of diabetes mellitus and not anticoagulated. Review of Systems Constitutional symptoms: Negative except as documented in HPI. Skin symptoms: Negative except as documented in HPI. Eye symptoms: Negative except as documented in HPI. ENMT symptoms: Negative except as documented in HPI. Respiratory symptoms: Negative except as documented in HPI. Cardiovascular symptoms: Negative except as documented in HPI. Gastrointestinal symptoms: Negative except as documented in HPI. Musculoskeletal symptoms: Negative except as documented in HPI. Neurologic symptoms: Foot was asleep when she got out of recliner. Allergy/immunologic symptoms: Negative except as documented in HPI. Additional review of systems information: All other systems reviewed and otherwise negative. Health Status Allergies: Allergic Reactions (Selected) NKA. Medications: (Selected) Documented Medications Documented Lantus 100 units/ml subcutaneous solution: 9 units, Subcut., Bedtime, 30 mL, 3 Refill(s) Novolin R: Subcut. amlodipine 10 mg oral tablet: 10 mg, 1 tab(s), PO, Daily atenolol 100 mg oral tablet: 100 mg, 1 tab(s), PO, Daily levETIRAcetam 250 mg oral tablet: 250 mg, PO, 2xDay lisinopril 40 mg oral tablet: 40 mg, PO, Daily. Immunizations: Include Immunizations Immunizations reviewed. , Lor Rodriguez. Past Medical/ Family/ Social History Medical history: No active or resolved past medical history items have been selected or recorded.. Surgical history: HC REMV CATARACT EXTRACAP,INSERT LENS - 06/14/12 - RT on 06/14/2012 at 56 Years. HC REMV CATARACT EXTRACAP,INSERT LENS - 05/31/12 - LT on 05/31/2012 at 56 Years. C STRABISMUS SURG,2+ VERT MUSCLE - ? done as a child unsure of which eye on . Diabetes mellitus ([id number]).. Family history: No family history items have been selected or recorded.. Physical Examination Vital Signs: Vital Signs 12/07/2014 9:42 CDT Temperature Core 36.8 DegC Peripheral Pulse Rate 89 /min Respiratory Rate 16 /min SpO2 98 % Systolic Blood Pressure 151 mmHg HI Diastolic Blood Pressure 74 mmHg . General: Alert and no acute distress. Skin: Warm and dry. Head: Normocephalic. Eye: Normal conjunctiva. Cardiovascular: Regular rate and rhythm. Respiratory: Respirations are non-labored. Musculoskeletal: Ankle/foot left, lateral, malleolus, metatarsal # 5, tenderness, swelling and ecchymosis mid lateral foot near prox 5th metatarsal Neurological: Normal motor observed and normal speech observed. Psychiatric: Cooperative. Medical Decision Making Differential Diagnosis:Ankle sprain, foot sprain, foot fracture, contusion. Documents reviewed:Emergency department nurses' notes, prior records. OrdersLaunch Orders Radiology: XR Foot Left 3 or more views (Order Processing): 12/07/2014 9:47 CDT, fall, swollen lateral ankle and near base of 5th metatarsal, Stat, Patient Bed, Once, 12/07/2014 9:47 CDT, [facility] ED XR Ankle Left 3 or more views (Order Processing): 12/07/2014 9:47 CDT, fall, swollen lateral malleolus, Stat, Patient Bed, Once, 12/07/2014 9:47 CDT, [facility] ED, Launch Orders Pharmacy: oxyCODONE-acetaminophen 5 mg-325 mg oral tablet (Order Processing): 2 tab(s), PO, Once. Foot/toes x-ray findings:Indications: fall, swollen lateral malleolus Indications: fall, swollen lateral ankle and near base of 5th metatarsal ORIGINAL REPORT - 07-Dec-2014 10:21:00 Left Foot 3vw AP/Lat/Obl: Left Ankle 3vw AP/Lat/Mortise: IMPRESSION: Subtle nondisplaced fracture through the proximal metaphysis of the left 5th metatarsal.The ankle is negative. No other fracture is noted. Reexamination/ Reevaluation Applied dalton bandage and Medium Post Op Shoe for comfort. Impression and Plan Diagnosis Fracture Metatarsal Bone Closed Initial L (Discharge, Emergency medicine, Medical) Plan Condition: Stable. Disposition: Discharged: to home. Prescriptions: Oxycodone 5 mg #20, use OTC pain relievers for baseline pain.. Patient was given the following educational materials: FRACTURE, Foot. Limitations: Limited activity, No work, For 2 days, Post-op boot, crutches, may bear weight as tolerated.. Follow up with: Follow up with primary care provider Within 1 - 2 weeks No work on 12/08 and 12/09., In:Sees Dr. Sparks [facility]. Given written copy of radiology report.. Counseled: Patient, Regarding diagnosis, Regarding diagnostic results, Regarding treatment plan, Patient indicated understanding of instructions. Electronically Signed By: PENG GREENWOOD MD On: 12/07/2014 10:49 AM Modified by and Electronically Signed by: PENG GREENWOOD MD On: 12/07/2014 10:30 AM Source: [facility] POWERCHART Document Id: [id number]} David Avery R.N. - 12/07/2014 9:42 AM CDT ED Triage Assessment Document Has Been Updated ED Triage Assessment Entered On: 12/07/2014 9:44 CDT Performed On: 12/07/2014 9:42 CDT by DAVID AVERY RN Reason For Visit (As Of: 12/07/2014 09:45:00 CDT) Diagnoses(Active) Ankle injury - Minor Date: 12/07/2014 ; Diagnosis Type: Reason For Visit ; Confirmation: Complaint of ; Clinical Dx: Ankle injury - Minor ; Classification: Medical ; Clinical Service: Emergency medicine ; Code: PNED ; Probability: 0 ; Diagnosis Code: [id number] Triage Chief Complaint Description : patient presents with left lateral foot and ankle pain after she tripped after standing up from a chair Information Given By : Patient Accompanied By : Spouse Mode of Arrival ED : Private vehicle Track : Trauma Other Languages : Lao Patient Informed of Triage Location : Emergency department Vital Signs Assessed : Yes Treatments Prior to Arrival : None Is Patient Female and 13-50 no hysterectomy : No DAVID AVERY RN - 12/07/2014 9:42 CDT Vital Signs Temperature Core : 36.8 DegC(Converted to: 98.2 DegF) Peripheral Pulse Rate : 89 /min Respiratory Rate : 16 /min Systolic Blood Pressure : 151 mmHg (HI) Diastolic Blood Pressure : 74 mmHg NIBP Mean : 100 mmHg SpO2 : 98 % Oxygen Therapy : Room air DAVID AVERY RN - 12/07/2014 9:42 CDT Pain Assessment Pain Symptoms : Yes DAVID AVERY RN - 12/07/2014 9:42 CDT Pain Scale Pain Scale Verbal 0-10 : Open DAVID AVERY RN - 12/07/2014 9:42 CDT Pain Pain Assessment Grid Pain 1 Location : Foot Laterality : Left Intensity : 8 Time Pattern : Acute DAVID AVERY RN - 12/07/2014 9:42 CDT ED Physician Notification Time ED Physician Notification Time : 12/07/2014 9:44 CDT DAVID AVERY RN - 12/07/2014 9:42 CDT ESHA DCP GENERIC CODE Tracking Acuity : 4 -Less Urgent Tracking Group : [facility] ED DAVID AVERY RN - 12/07/2014 9:42 CDT Allergy (As Of: 12/07/2014 09:45:00 CDT) Allergies (Active) NKA Estimated Onset Date: Unspecified ; Created By: OSCAR CORTES RN; Reaction Status: Active ; Category: Drug ; Substance: NKA ; Type: Allergy ; Updated By: OSCAR CORTES RN; Reviewed Date: 06/14/2012 8:13 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 - 12/07/2014 11:01 AM CDT Valuables/Belongings Valuables/Belongings Entered On: 12/07/2014 11:01 CDT Performed On: 12/07/2014 11:01 CDT by DAVID AVERY RN Valuables/Belongings Home Medication Disposition : None brought in with patient DAVID AVERY RN - 12/07/2014 11:01 CDT Source: [employer] Document Id: [id number] CDT!3 Miscellaneous - Conversion, Historical Provider Ser - 12/07/2014 11:01 AM CDT Coding Summary-Paper Based CODING DATE: 12/11/2014 FINAL [facility] STATUS: * Discharged to Home or Self Care PAYOR: Commercial Insurance ADMIT DX: 959.7 Other and Unspecified Injury to Knee, Leg, Ankle, and Foot REASON FOR VISIT DX: 959.7 Other and Unspecified Injury to Knee, Leg, Ankle, and Foot FINAL DX: PRINCIPAL: 825.25 Fracture of Metatarsal Bone(s), Closed SECONDARY: E927.0 Overexertion from Sudden Strenuous Movement E849.0 Home Accidents PROCEDURES DOCTOR NAME DATE NOTE: The code number assigned matches the documented diagnosis and / or procedure in the patient's chart. However, the narrative phrase printed from the coding software may appear abbreviated, or result in slightly different terminology. Coded By: NATHAN CORTEZ Date Saved: 12/11/2014 12:51 pm [facility] Document Id: [id number] Redd - Peng Greenwood M.D. - 12/07/2014 10:38 AM CDT Work Excuse 07 December 2014 MARCO A ORDONEZ [address] [place] [id number] Dear MARCO A ORDONEZ, You were examined in my office on: December 07, 2014, in Emergency Department Reason for work excuse: Medical Illness ( _ ) Yes ( _ ) No Injury ( x ) Yes ( _ ) No Is excused from all work: ( x ) Yes ( _ ) No Has work limitations: ( X ) Yes ( _ ) No As follows: No work on 12/08 and 12/09. Upon return to work, wear post-op shoe for 2 weeks. Limitations apply until: Make appointment with primary physician. Follow-Up Appointment : ( X) Return to Work date: December 10, 2014 Notes: _ Sincerely, PENG GREENWOOD [address] [place] [address] Electronic Signature Electronically Signed By: PENG GREENWOOD MD On: 07 December 2014 This document has images extracted. Source: [facility] Document Id: [id number] Electronically signed by Conversion, [facility] Factory Superintendent [id number] at 11/28/2016 2:53 PM CDT Miscellaneous - David Avery R.N. - 12/07/2014 9:38 AM CDT Facility Charge Ticket 2.0 11.0 DX Facility Charge Ticket 2.0 11.0 DX Entered On: 12/07/2014 11:01 CDT Performed On: 12/07/2014 9:38 CDT by DAVID AVERY RN Facility Charge Ticket 2.0 11.0 DX ED Other Charges : Standard ED Encounter TVL Level Translated RTF : Ankle injury - Minor TVL:3 TVL Level for Facility Charge Ticket : Level 3 Arrival Mode Calc : 1 Mode of Arrival ED : Private vehicle [facility] Mode of Arrival Interpreted : Standard [facility] Process Management : None Order Management RTF : Xray XR Ankle Left 3 or more views,12/07/14 09:47,PENG GREENWOOD MD Completed XR Foot Left 3 or more views,12/07/14 09:47,PENG GREENWOOD MD Completed [facility] Order Management : Xray - plain films 30 Minutes Critical Care : No Nursing Notes RTF : Triage Forms ED Triage Assessment,12/07/14 09:42,DAVID AVERY RN Nursing Notes ED Primary Assessment,12/07/14 10:00,DAVID AVERY 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
--- OUTSIDE RECORDS SUMMARY | 2022-04-03 11:08 | XMS_ITS | Encounter Summary ---
:1955 Author Organization [facility] Address [address] [place] [address] Care Team Providers Name Role Phone Unavailable Primary Care Provider Unavailable Encounter Details Date Type Department Care Team Description 06/23/2012 Hospital Encounter HX NO MAPPING Provider, Historical [...]
--- OUTSIDE RECORDS SUMMARY | 2022-04-03 11:08 | XMS_ITS | Encounter Summary ---
:1955 Author Organization [facility] Address [address] [place] [address] Care Team Providers Name Role Phone Elsewhere, Pcp Primary Care Provider Unavailable Encounter Details Date Type Department Care Team Description 05/23/2021 Lab Department of Jenn Haney Frac ture Wrist Closed Medicine, [place]. 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 documented in this encounter Results SARS Coronavirus-2 RNA, V Asymptomatic (05/23/2021 12:55 PM ENTRY LEVEL AUTOMOTIVE TECHNICIAN) [facility] Method Time Signature SARS-CoV-2 Swab, 05/24/2021 ECLR Specimen Nasopharynx 1:29 PM ENTRY LEVEL AUTOMOTIVE TECHNICIAN Source SARS CoV-2 Undetected Undetected 05/24/2021 ECLR RNA, TMA 1:29 PM ENTRY LEVEL AUTOMOTIVE TECHNICIAN Comment: SARS-CoV-2 RNA absent. This result does not rule out COVID-19 in the patient, as the sensitivity of the test depends o n the timing of the specimen collection and the quality of the specim en. Result should be correlated with patient's history and clinical presentat ion. ----ADDITIONAL INFORMATION---- This molecular amplification test was pe rformed using the Aptima SARS-CoV-2 assay ([employer] on the [employer] tem under emergency use authorization (EUA) by the U.S. Food and Drug Administ ration. Fact sheets for this EUA assay can be fo und at the following links: For Healthcare Providers: https://www.[employer] a.gov/media/408334/download For Patients: https://www.fda.gov/media/ 318841/download Specimen Anatomical Collection Method Collection Time Receive d Time (Source) Location / / Volume Laterality Varies 05/23/2021 12:55 05/23/2021 9:32 (Nasopharynx) PM ENTRY LEVEL AUTOMOTIVE TECHNICIAN PM ENTRY LEVEL AUTOMOTIVE TECHNICIAN Jenn Roa P.A.-C. LAB MICROBIOLOGY - GENERAL O EVANGELINAERABLES Performing Organization Address City/State/ZIP Code Phon e Number [facility]- [address] [place] [address] [phone] [facility] [place] [address] [address] documented in this encounter Visit Diagnoses Diagnosis Fracture Wrist Closed Initial Right documented in this encounter Additional Health Concerns Infection Onset Date Last Indicated Resolved Time COVID19 Pending 05/23/2021 05/23/2021 05/24/2021 1:30 PM ENTRY LEVEL AUTOMOTIVE TECHNICIAN documented as of this encounter Care Teams Vice President Relationship Specialty Start Date End Date Elsewhere, Pcp PCP - General Family Medicine 03/11/21 documented as of this encounter
--- OUTSIDE RECORDS SUMMARY | 2022-04-03 11:08 | XMS_ITS | Encounter Summary ---
:1955 Author Organization [facility] Address [address] [place] [address] Care Team Providers Name Role Phone Unavailable Primary Care Provider Unavailable Encounter Details Date Type Department Care Team Description 06/14/2012 Hospital Encounter HX NO MAPPING Provider, Historical [...]
--- OUTSIDE RECORDS SUMMARY | 2022-04-03 11:08 | XMS_ITS | Encounter Summary ---
:1955 Author Organization [facility] Address [address] [place] [address] Care Team Providers Name Role Phone Unavailable Primary Care Provider Unavailable Encounter Details Date Type Department Care Team Description 06/14/2012 Hospital Encounter [facility] Yisel Felipe M.D. [address] [place] [phone] (Wo rk) Social History Tobacco Use Types Packs/Day Years Used Date Smoking Tobacco: Never Assessed Sex Assigned at Date Recorded Not on file documented as of this encounter Last Filed Vital Signs Vital Sign Reading Time Taken Comments Blood Pressure 101/46 06/14/2012 9:52 AM AUXILIARY PLANT OPERATOR Pulse 62 06/14/2012 9:52 AM AUXILIARY PLANT OPERATOR Temperature - - Respiratory Rate 20 06/14/2012 9:52 AM AUXILIARY PLANT OPERATOR Oxygen Saturation - - Inhaled Oxygen Concentration - - Weight - - Height 160 cm (5' 2.99) 06/14/2012 8:20 AM AUXILIARY PLANT OPERATOR Body Mass Index - - documented in this encounter Discharge Summaries Ernesto Hernandez R.N. - 06/14/2012 10:07 AM CST Inpatient Discharge Instructions [facility] [address] [place], [place] [id number] Patient Discharge Instructions Name: MARCO A JONES Current Date: 06/14/2012 10:07:18 : 1955 12:00 AM [facility] Number: [id number] Patient Address: [address] [place] [id number] Patient Primary Care Provider: Name: PCPFREDIS Phone: Discharge Diagnosis: [facility] in [place] would like to thank you for allowing us to assist you withyour healthcare needs. The following includes patient education materials and information regarding your injury/illness. Comment: MARCO A JONES has been given the following list of follow-up instructions, medication list, and patient education materials: Follow-up Instructions Medications Medication/Strength Dose Route Frequency Indications/Special Instructions/Comments calcium-vitamin D (calcium-vitamin D 600 mg-200 intl units oral capsule) 1 cap(s) Oral two times a day atenolol (atenolol 100 mg oral tablet) 100 mg Oral once a day amlodipine (amlodipine 10 mg oral tablet) 10 mg Oral once a day insulin glargine (Lantus 100 units/ml subcutaneous solution) Subcutaneous once a day (at bedtime) insulin regular (Novolin R) Subcutaneous levETIRAcetam (Keppra) two times a day Attention: If you have any medications at home that are not on this list, DO NOT take them until youcontact your provider for clarification. Comment: Electronically Signed By: Signed On: JOSÉ LUIS Rosario JUDY FAY , have received the attached patient education materials/instructions and have verbalized understanding: Patient Signature Date Time Care Provider Signature Date Time [id number] Discharge Instructions (Adults) HOME CARE FOLLOWING CATARACT SURGERY Person(s) taught: Patient INTRODUCTION: Healing after cataract surgery normally takes 4 to 6 weeks. During this time it is important to follow certain procedures and guidelines to help ensure proper healing. The following information is designed to help you make a rapid, comfortable recovery. THE DAY OF YOUR SURGERY: Immediately before your surgery, you will receive a sedating medication. For the first 24 hours after being sedated, it is common to have lapses of memory, slowed reaction time and impaired judgment. THEREFORE: *Arrange for someone to accompany you to and from your appointment. *DO NOT drive or operate motorized vehicles or equipment. If you will be going home after the procedure, make arrangements for someone to drive you home. *You may wish to have a responsible adult stay with you for the remainder of the day. *Rest the remainder of the day. *DO NOTreturn to work. *DO NOTassume responsibility for small children or anyone dependent on your care. *DO NOTdrink alcoholic beverages. *You may wish to avoid making important decisions or signing legal documents. When your surgery is done, your eye will be protected with an eye patch and metal shield. You may remove the eye shield 4-6 hours after surgery. If the padding is irritating or uncomfortable, you may remove the eye shield, then remove the padding, then replace the shield over the eye. It is important to cover the eye with the shield to protect the eye when you lie down. NORMAL SIGNS AND SENSATIONS AFTER SURGERY During the 4 to 6 weeks that your eye is healing, the following is normal: *Blurry vision *Secretions from the eye *Itching *Mild tearing *Gritty sensation in the eye or a feeling of a lash being in your eye *Sensitivity to light and wind RESTRICTED AND ALLOWED ACTIVITIES After surgery, DO NOT: *Bump your eye - Move slowly and carefully especially when using stairs. *Rub your eye - This could cause problems at the surgical site and possibly prevent proper healing. *Drive - Avoid driving until your physician says your vision is clear enough to do so. *Golf for two weeks, play tennis for three weeks or swim for four weeks -It's best to avoid these activities for the recommended times and stick with quiet activities (reading, watching television) toensure proper healing. *Expose yourself to deepa, dirty environments (for two weeks) - This could irritate your eye and delay healing. YOU MAY do the following: *Read, watch TV and look at the computer screen to the degree that it is comfortable for you *Bathe or shower during the first week and thereafter, but avoid getting water directly into the operated eye *Walk *Go to the [employer] parlor or dominguez, but wear your metal shield *Drive once you are advised by your physician that this is OK CARE OF YOUR EYE AFTER SURGERY: Caring for your eye after surgery includes the following: *Protecting your operated eye - Protect your eye by wearing glasses during the day and your metal eye shield at night (or during the day to provide extra protection) until your physician advises otherwise. *Removing dried secretions - During sleep your eye may secrete matter that dries on your eyelashes.To remove the secretions from your clean washcloth with warm tap water and gently wipe your lids andlashes. Do not put pressure on the eye. *Checking your vision - To check the vision in your operated eye, cover your unoperated eye and look at the same object at various times each day. If you notice that your vision is worsening, call your physician (see When to call your physician, back page). EYE DROPS AFTER SURGERY: You will need to use eye drops (anti-inflammatory and antibiotic) for several weeks after your cataract surgery. To use the drops, gently pull down on your lower eyelid and put the drop in your operated eye. Follow the schedule below: Anti-inflammatory drops (Shake well before using) Wait 5 minutes between each drop Vigamox (soriano cap) 1 drop 4 times per day until bottle is gone Diclofenac (nevarez cap) 1 drop 4 times per day until bottle is gone Omnipred (pink cap) 1 drop 4 times per day until bottle is gone Wait five minutes between putting drops in. If a drop misses your eye, or if you get only part of a drop in your eye, put in another drop. Tylenol 650-1000mg every 4 hours as needed for discomfort WHEN TO CALL YOUR PHYSICIAN: Call your eye surgeon if you notice: *Worsening of your vision. *Marked increase in eye redness or secretions from the eye. *Pain in your eye. (Itching and a mild gritty sensation are normal.) *Light flashes and multiple new spots (floaters) before your eye. FOLLOW-UP APPOINTMENT: 06/15/12 @ 9:[address] [place] [address] Treviño. Your surgeon is Dr. Felipe in [place], Cell number [phone] If you need to speak with your surgeon, call the appropriate number and ask for your surgeon. IF ANY PROBLEMS OR CONCERNS, PLEASE CONTACT YOUR DOCTOR OR CALL THE PATIENT ADVISORY NURSE AT [phone] OR EMERGENCY ROOM AT [phone], ext: [phone]. ext: surgical services [phone], med-surge [phone] You may receive a Customer Satisfaction survey in the mail from Luli Muñoz. If you receive this survey, we would ask that you take the time to complete it and return it. Your comments and suggestions are important to us; we are always looking for ways to improve the service we provide. Thank you for choosing [facility]. It was a pleasure to serve you. [address] [address] Name: MARCO A JONES Current Date: 06/14/2012 10:07:18 Source: [employer] Document Id: [id number] LIARY PLANT OPERATOR Ernesto Hernandez R.N. - 06/14/2012 10:07 AM CST Discharge Medication List [address] [address] Discharge Medication List Name: MARCO A JONES Current Date: 06/14/2012 10:07:17 : 1955 12:00 AM [facility] Number: [id number] Patient Address: [address] [place] [id number] Patient Primary Care Provider: Name: PCP, FREDIS Phone: Discharge Diagnosis: [facility] in [place] would like to thank you for allowing us to assist you withyour healthcare needs. The following includes patient education materials and information regarding your injury/illness. Medications Medication/Strength Dose Route Frequency Indications/Special Instructions/Comments calcium-vitamin D (calcium-vitamin D 600 mg-200 intl units oral capsule) 1 cap(s) Oral two times a day atenolol (atenolol 100 mg oral tablet) 100 mg Oral once a day amlodipine (amlodipine 10 mg oral tablet) 10 mg Oral once a day insulin glargine (Lantus 100 units/ml subcutaneous solution) Subcutaneous once a day (at bedtime) insulin regular (Novolin R) Subcutaneous levETIRAcetam (Keppra) two times a day Attention: If you have any medications at home that are not on this list, DO NOT take them until youcontact your provider for clarification. Comment: Electronically Signed By: Signed On: Source: [facility] POWERCHART Document Id: [id number] LIARY PLANT OPERATOR documented in this encounter Medications [...] unit/mL injection documented as of this encounter Procedure Notes Ernesto Hernandez R.N. - 06/14/2012 9:59 AM CST Capillary Blood Glucose Point of Care Document Has Been Updated Capillary Blood Glucose Point of Care Entered On: 06/14/2012 9:59 AUXILIARY PLANT OPERATOR Performed On: 06/14/2012 9:59 AUXILIARY PLANT OPERATOR by ERNESTO HERNANDEZ RN Blood Glucose Blood Glucose Testing Reason : Other: post-procedural ERNESTO HERNANDEZ RN - 06/14/2012 9:59 AUXILIARY PLANT OPERATOR Glucose Point Of Care : 71mg/dL (Comment: Patient refused juice or nourishment - stating she just wants to go home, take her medication and have a roll and coffee. States she is comfortable with her blood sugar. [employer] consulted. Advised to document her refusal. [ERNESTO HERNANDEZ RN - 06/14/2012 10:04 AUXILIARY PLANT OPERATOR] ) ERNESTO HERNANDEZ RN - 06/14/2012 10:04 AUXILIARY PLANT OPERATOR Blood Glucose Stick Site : Finger ERNESTO HERNANDEZ RN - 06/14/2012 9:59 AUXILIARY PLANT OPERATOR Source: [facility] POWERCHART Document Id: [id number] LIARY PLANT OPERATOR Rebecca French R.N. - 06/14/2012 8:20 AM CST Preprocedure Checklist Preprocedure Checklist Entered On: 06/14/2012 8:25 AUXILIARY PLANT OPERATOR Performed On: 06/14/2012 8:20 AUXILIARY PLANT OPERATOR by REBECCA FRENCH RN Checklist Last Fluid Intake : 06/14/2012 7:00 AUXILIARY PLANT OPERATOR Last Food Intake : 06/13/2012 22:00 AUXILIARY PLANT OPERATOR REBECCA FRENCH RN - 06/14/2012 8:20 AUXILIARY PLANT OPERATOR Surgery Prep Grid Contacts/Glasses Removed : Yes Preop Scrub Night Prior to Surgery : NA Prosthesis Removed : NA Surgical Prep Verified : Yes Tampon Removed : NA Wearing Patient Gown : Yes Voided radiation therapist to procedure : NA Dentures Removed : NA Hairpins/Hairpiecies Removed : NA Hearing Aid Removed : NA Home Prep Complete : NA Jewelry/Piercing Removed : NA Makeup/Nail Spanish Removed : NA Oral Hygiene : NA Preop Scrub AM of Surgery : REBECCA LIRIANO RN - 06/14/2012 8:20 AUXILIARY PLANT OPERATOR Patient Rights Grid Blood Consent Signed : ALEJANDRA Surgical/Procedure Consent Signed : Yes REBECCA FRENCH RN - 06/14/2012 8:20 AUXILIARY PLANT OPERATOR Family Location : [facility] other radiation therapist REBECCA FRENCH RN - 06/14/2012 8:20 AUXILIARY PLANT OPERATOR Checklist II Patient Safety Grid Allergy Band on and Verified : NA ID Band on and Verified : Yes Preop Medications Sent With Patient : NA Relevant Images in Medical Record : NA Review of Labs : NA Procedure/Site Verified by Patient/Family : Yes Procedure/Site Verified by RN : Yes Procedure/Site Verified by Physician : Yes Type & Screen/Type & Cross Completed : NA Anesthesia Consult : Yes Band on for Limb Alert : NA Blood Band on and Verified : NA Current ECG in Medical Record : NA Current H&P in Medical Record : Yes Implants Verified : Yes Medication Reconciliation on Chart : Yes Pacemaker/AICD Verified : REBECCA LIRIANO RN - 06/14/2012 8:20 AUXILIARY PLANT OPERATOR RN Who Verified Site : REBECCA FRENCH RN Physician Who Verified Site : [facility] FEL[facility] MD, GWYNNE A RN - 06/14/2012 8:20 AUXILIARY PLANT OPERATOR SINCERE Screening Known Obstructive Sleep Apnea : No - NOT diagnosed with SINCERE REBECCA FRENCH RN - 06/14/2012 8:20 AUXILIARY PLANT OPERATOR SINCERE Assessment Do you have high blood pressure or have you been told to take medication for high blood pressure? : No Frequency of Snoring : Usually (3-5 times per week) Frequency of Gasping, Choking, Snorting : Never Total Number of Historical Features : 1 Neck Circumference - SINCERE 1 : Total Sleep Apnea Clinical Score 1 Calc : 1 REBECCA FRENCH RN - 06/14/2012 8:20 AUXILIARY PLANT OPERATOR Valuables/Belongings Valuables/Belongings Grid Valuables at Bedside Clothes, Patient Valuables : Pants, Shirt, Shoes REBECCA FRENCH RN - 06/14/2012 8:20 AUXILIARY PLANT OPERATOR Room Orientation/Facility Policy Reviewed : Yes Home Medication Disposition : None brought in with patient REBECCA FRENCH RN - 06/14/2012 8:20 AUXILIARY PLANT OPERATOR Education Preprocedure Education Grid Procedure Type : as above Education Topics : Anesthesia/Sedation, Plan of care Individuals Taught : Patient Barriers to Learning : None evident Teaching Method : Explanation Teaching Evaluation : Verbalizes understanding REBECCA FRENCH RN - 06/14/2012 8:20 AUXILIARY PLANT OPERATOR Preop Holding Mode of Arrival : Ambulatory Preoperative Orders Complete : Yes REBECCA FRENCH RN - 06/14/2012 8:20 AUXILIARY PLANT OPERATOR Advance Directive Advanced Directives : No REBECCA FRENCH RN - 06/14/2012 8:20 AUXILIARY PLANT OPERATOR Vital Signs Temperature Core : 36.6C(Converted to: 97.9DegF) Peripheral Pulse Rate : 82/min Respiratory Rate : 16/min Systolic Blood Pressure : 134mmHg Diastolic Blood Pressure : 59mmHg NIBP Mean : 84mmHg SpO2 : 100% Oxygen Saturation Monitoring Frequency : Intermittent Oxygen Therapy : Room air Height : 160cm(Converted to: 5ft 3inch(es)) Height Source : Estimated Estimated Weight : 53kg Estimated Weight Conversion to Pounds : 116.60lb REBECCA FRENCH RN - 06/14/2012 8:20 AUXILIARY PLANT OPERATOR Allergy Allergies (Active) NKA Estimated Onset Date: Unspecified ; Created By: REBECCA FRENCH RN; Reaction Status: Active ; Category: Drug ; Substance: NKA ; Type: Allergy ; Updated By: REBECCA FRENCH RN; Reviewed Date: 06/14/2012 8:13 AUXILIARY PLANT OPERATOR Preprocedural Pause Correct Patient Identity : Patient verbalizes self, Patient wristband ID, Patient verbalizes Correct Procedure Site and Side : right cataract extraction with concurrent intraoccular lens implant Correct Procedure Site/Side Verified By : Patient/responsible republican, Nurse, MD Site Marking : Yes Pre-Procedure Pause Verbal Confirm. of : Procedure, Site, Side, Patient Position, Patient ID REBECCA FRENCH RN - 06/14/2012 8:20 AUXILIARY PLANT OPERATOR Source: [employer] Document Id: [id number] LIARY PLANT OPERATOR documented in this encounter Nursing Notes Rebecca French R.N. - 06/14/2012 8:11 AM CST Day Surgery Admission History/Asmt Adult Day Surgery Admission History/Asmt Adult Entered On: 06/14/2012 8:20 AUXILIARY PLANT OPERATOR Performed On: 06/14/2012 8:11 AUXILIARY PLANT OPERATOR by REBECCA FRENCH RN General Info Preferred Name : Marco A Mode of Arrival : Ambulatory Accompanied By : Significant other Chief Complaint : right cataract Preferred Communication Mode : Verbal Information Given By : Patient Languages : Kenyan Have you received chemotherapy in last 48 hours? : No REBECCA FRENCH RN - 06/14/2012 8:11 AUXILIARY PLANT OPERATOR Allergy Allergies (Active) NKA Estimated Onset Date: Unspecified ; Created By: REBECCA FRENCH RN; Reaction Status: Active ; Category: Drug ; Substance: NKA ; Type: Allergy ; Updated By: REBECCA FRENCH RN; Reviewed Date: 06/14/2012 8:13 AUXILIARY PLANT OPERATOR Anesth/Transfusion Anesthesia/Transfusions : Prior anesthesia REBECCA FRENCH RN - 06/14/2012 8:11 AUXILIARY PLANT OPERATOR ID Screen Drug Resistant Organism : No REBECCA FRENCH RN - 06/14/2012 8:11 AUXILIARY PLANT OPERATOR Nutrition Nutrition Risk Factors by History Adult : None Home Diet : Diabetic Feeding Ability : Complete independence Eating Difficulties : None Appetite : Good REBECCA FRENCH RN - 06/14/2012 8:11 AUXILIARY PLANT OPERATOR Home Environment Current Daily Living Assistance : None Living Situation : Home independently Home Equipment : Blood glucose monitor Sensory Deficits : Other: right cataract Mobility Assistance Prior to Admission : Independent Current Home Treatments : Blood glucose monitoring Professional Skilled Services : None Special Services and Community Resources : None REBECCA FRENCH RN - 06/14/2012 8:11 AUXILIARY PLANT OPERATOR Dependent Habits Tobacco Use/Currently Using : Yes Tobacco Use/Advised to Quit : Yes Exposure to Tobacco Smoke : Patient smokes Smoking Status : Current every day smoker REBECCA FRENCH RN - 06/14/2012 8:11 AUXILIARY PLANT OPERATOR Tobacco Use Grid Type : Cigarettes Cigarette Use Packs/Day : 1 REBECCA FRENCH RN - 06/14/2012 8:11 AUXILIARY PLANT OPERATOR Caffeine Use Grid Caffeine Use : Current Type : Coffee, Soft drinks Frequency : Daily REBECCA FRENCH RN - 06/14/2012 8:11 AUXILIARY PLANT OPERATOR Recreational Drug Use Grid Drug Use : None REBECCA FRENCH RN - 06/14/2012 8:11 AUXILIARY PLANT OPERATOR Psychosocial Adult Domestic Abuse Concerns : REBECCA Shannon RN - 06/14/2012 8:11 AUXILIARY PLANT OPERATOR Advance Directive Advanced Directives : REBECCA Young RN - 06/14/2012 8:11 AUXILIARY PLANT OPERATOR Educ Needs Patient/Family Education Needs : Plan of care REBECCA FRENCH RN - 06/14/2012 8:11 AUXILIARY PLANT OPERATOR Learning Style Preference Adult Grid Patient : Verbal explanation Family : Verbal explanation REBECCA FRENCH RN - 06/14/2012 8:11 AUXILIARY PLANT OPERATOR Education Preprocedure Education Grid Procedure Type : right cataract extraction with concurrent intraoccular lens implant Education Topics : Anesthesia/Sedation, Plan of care Individuals Taught : Patient, Significant other Barriers to Learning : None evident Teaching Method : Explanation Teaching Evaluation : Verbalizes understanding REBECCA FRENCH RN - 06/14/2012 8:11 AUXILIARY PLANT OPERATOR Outpatient Assessment Procedural Respiratory : Respirations unlabored, Respiratory pattern regular, Breath sounds clear all lobes Procedural Cardiovascular : Heart rhythm regular, Skin color normal for ethnicity, Skin dry and warm Procedural Neurological : Alert, Oriented x 3, Gait steady Procedural Gastrointestinal : Abdomen non-tender and soft Procedural Genitourinary : Voiding, no difficulties Procedural Integumentary : Skin integrity intact Procedural Musculoskeletal : Activity tolerance without distress REBECCA FRENCH RN - 06/14/2012 8:11 AUXILIARY PLANT OPERATOR Psycho/Emotional Pain Symptoms : No Affect/Behavior : Calm, Cooperative, Appropriate REBECCA FRENCH RN - 06/14/2012 8:11 AUXILIARY PLANT OPERATOR Peripheral IV Peripheral IV Assess/Intervention Grid Peripheral IV #1 IV Activity : Start Number of Attempts : 1 Date of Insertion : 06/14/2012 AUXILIARY PLANT OPERATOR IV Site : Hand Laterality : Left Catheter Size : 22 Catheter Type : Protective Site Condition : No complications Drainage Description : None Infiltration Score : 0 Phlebitis Score : 0 Flow/ Patency : No complications REBECCA FRENCH RN - 06/14/2012 8:11 AUXILIARY PLANT OPERATOR Kevin Sensory Perception Kevin : No impairment Moisture Kevin : Rarely moist Activity Kevin : Walks frequently Mobility Kevin : No limitations Nutrition Kevin : Adequate Friction and Shear Kevin : Potential problem Kevin Score : 21 REBECCA FRENCH RN - 06/14/2012 8:11 AUXILIARY PLANT OPERATOR Hendrich II Fall Risk Confusion/Disorientation Hendrich : No Depression Fall Risk Hendrich : No Altered Elimination Fall Risk Hendrich : No Dizziness/Vertigo Fall Risk Hendrich : No Gender, Male Fall Risk Hendrich : No Prescribed Antiepileptics Hendrich : Yes Prescribed Benzodiazepines Hendrich : No Rising From Chair Fall Risk Hendrich : Able to rise in a single movement, no loss of balance with steps Fall Risk Score Hendrich II : 2 REBECCA FRENCH RN - 06/14/2012 8:11 AUXILIARY PLANT OPERATOR DC Needs Anticipated Discharge Date : 06/14/2012 AUXILIARY PLANT OPERATOR Discharge To, Anticipated : Home independently Home Treatments, Anticipated : Blood glucose monitoring Home Equipment, Anticipated : Blood glucose monitor Professional Skilled Services, Anticipated : None Special Serv & Comm Res, Anticipated : None Needs Assistance with Transportation : No Needs Assistance at Home Upon Discharge : No REBECCA FRENCH RN - 06/14/2012 8:11 AUXILIARY PLANT OPERATOR FLACC Face FLACC : No particular expression or smile Legs FLACC : Normal position or relaxed Activity FLACC : Lying quietly, normal position, moves easily Cry FLACC : No cry, awake or asleep Consolabillity FLACC : Content, relaxed FLACC Pain Scale Score : 0 REBECCA FRENCH RN - 06/14/2012 8:11CST Urinary Catheter Urinary Catheter Activity Type : Other: none REBECCA FRENCH RN - 06/14/2012 8:11 AUXILIARY PLANT OPERATOR Integumentary Integumentary Patient Stated Symptoms : None Skin Turgor : Elastic Skin Integrity : Intact Mucous Membrane Color : [place] Mucous Membrane Description : Moist Skin Color : Normal for ethnicity Skin Description : Dry Skin Temperature : Warm REBECCA FRENCH RN - 06/14/2012 8:11 AUXILIARY PLANT OPERATOR Source: [employer] Document Id: [id number] LIARY PLANT OPERATOR documented in this encounter OR Notes Op Note - Spike Felipe M.D. - 06/14/2012 12:00 AM CST [id number] Preoperative Diagnosis: Visually disabling nuclear sclerotic cataract of the right eye. Postoperative Diagnosis: Visually disabling nuclear sclerotic cataract of the right eye. Procedure Performed: Phacoemulsification with lens implantation, right eye. Surgeon: Spike Felipe M.D. Anesthesia: MAC. Complications: None. Indications: Ms. Jones presents with complaints of poor vision in her right eye. She is noted to have a dense nuclear sclerotic cataract. The risks, benefits, and alternatives to surgery were discussed including suprachoroidal hemorrhage and ophthalmitis and loss of the eye. The patient desired an e mmetropic refractive end point and a Consent was obtained. Description of Procedure: Patient is brought to the operating room where the right eye was sterilelyprepped and draped. A lid speculum was placed in the eye. A 6:30 paracentesis tract was made and Viscoat elastic was injected. A 2.85-mm., clear corneal incision was made with the Tarah at the temporal limbus. A Cystotome needle and Utrata forceps created a capsulorrhexis. Hydrodissection and hydrodelineation with 1% nonpreserved Lidocaine was performed. The Phaco tip was then introduced into the anterior chamber where the nucleus was grooved centrally and deeply rotated 90-degrees and cracked in half. Each nuclear half was disassembled using the Phaco chopper and handpiece. Each nuclear fragmentwas captured, phacoemulsified and removed. The epinuclear bowl followed and the posterior capsule was polished. Viscoat elastic filled the capsule and anterior chamber. A lens Model [id number] with a power of 21.5 Diopters was inserted into the capsule without difficulty. Residual Viscoat elastic was removed from the capsule and anterior chamber. The stroma of the wound and paracentesis tract were hydrated with Balance Salt solution. The wounds were checked for leaks and none were found. The patient tolerated the procedure well and left the operating suite in good condition. Spike Felipe M.D./olga Electronically Signed By: SPIKE FELIPE MD On: 06/14/2012 11:07 AM Source: [facility] MHSDOLBEYNONRADSYS Document Id: [id number] LIARY PLANT OPERATOR documented in this encounter Miscellaneous Notes Miscellaneous - Ernesto Hernandez R.N. - 06/14/2012 10:07 AM CST Inpatient Patient Education The following Patient Education Materials have been given to the patient: Patient Education Materials: Discharge Instructions - Adult (Custom) 55985 Discharge Instructions (Adults) HOME CARE FOLLOWING CATARACT SURGERY Person(s) taught: Patient INTRODUCTION: Healing after cataract surgery normally takes 4 to 6 weeks. During this time it is important to follow certain procedures and guidelines to help ensure proper healing. The following information is designed to help you make a rapid, comfortable recovery. THE DAY OF YOUR SURGERY: Immediately before your surgery, you will receive a sedating medication. For the first 24 hours after being sedated, it is common to have lapses of memory, slowed reaction time and impaired judgment. THEREFORE: *Arrange for someone to accompany you to and from your appointment. *DO NOT drive or operate motorized vehicles or equipment. If you will be going home after the procedure, make arrangements for someone to drive you home. *You may wish to have a responsible adult stay with you for the remainder of the day. *Rest the remainder of the day. *DO NOTreturn to work. *DO NOTassume responsibility for small children or anyone dependent on your care. *DO NOTdrink alcoholic beverages. *You may wish to avoid making important decisions or signing legal documents. When your surgery is done, your eye will be protected with an eye patch and metal shield. You may remove the eye shield 4-6 hours after surgery. If the padding is irritating or uncomfortable, you may remove the eye shield, then remove the padding, then replace the shield over the eye. It is important to cover the eye with the shield to protect the eye when you lie down. NORMAL SIGNS AND SENSATIONS AFTER SURGERY During the 4 to 6 weeks that your eye is healing, the following is normal: *Blurry vision *Secretions from the eye *Itching *Mild tearing *Gritty sensation in the eye or a feeling of a lash being in your eye *Sensitivity to light and wind RESTRICTED AND ALLOWED ACTIVITIES After surgery, DO NOT: *Bump your eye - Move slowly and carefully especially when using stairs. *Rub your eye - This could cause problems at the surgical site and possibly prevent proper healing. *Drive - Avoid driving until your physician says your vision is clear enough to do so. *Golf for two weeks, play tennis for three weeks or swim for four weeks -It's best to avoid these activities for the recommended times and stick with quiet activities (reading, watching television) toensure proper healing. *Expose yourself to deepa, dirty environments (for two weeks) - This could irritate your eye and delay healing. YOU MAY do the following: *Read, watch TV and look at the computer screen to the degree that it is comfortable for you *Bathe or shower during the first week and thereafter, but avoid getting water directly into the operated eye *Walk *Go to the [employer] parlor or [place], but wear your metal shield *Drive once you are advised by your physician that this is OK CARE OF YOUR EYE AFTER SURGERY: Caring for your eye after surgery includes the following: *Protecting your operated eye - Protect your eye by wearing glasses during the day and your metal eye shield at night (or during the day to provide extra protection) until your physician advises otherwise. *Removing dried secretions - During sleep your eye may secrete matter that dries on your eyelashes.To remove the secretions from your clean washcloth with warm tap water and gently wipe your lids andlashes. Do not put pressure on the eye. *Checking your vision - To check the vision in your operated eye, cover your unoperated eye and look at the same object at various times each day. If you notice that your vision is worsening, call your physician (see When to call your physician, back page). EYE DROPS AFTER SURGERY: You will need to use eye drops (anti-inflammatory and antibiotic) for several weeks after your cataract surgery. To use the drops, gently pull down on your lower eyelid and put the drop in your operated eye. Follow the schedule below: Anti-inflammatory drops (Shake well before using) Wait 5 minutes between each drop Vigamox (soriano cap) 1 drop 4 times per day until bottle is gone Diclofenac (nevarez cap) 1 drop 4 times per day until bottle is gone Omnipred (pink cap) 1 drop 4 times per day until bottle is gone Wait five minutes between putting drops in. If a drop misses your eye, or if you get only part of a drop in your eye, put in another drop. Tylenol 650-1000mg every 4 hours as needed for discomfort WHEN TO CALL YOUR PHYSICIAN: Call your eye surgeon if you notice: *Worsening of your vision. *Marked increase in eye redness or secretions from the eye. *Pain in your eye. (Itching and a mild gritty sensation are normal.) *Light flashes and multiple new spots (floaters) before your eye. FOLLOW-UP APPOINTMENT: 06/15/12 @ 9:[address] [place] [address] Treviño. Your surgeon is Dr. Felipe in [place], Cell number [phone] If you need to speak with your surgeon, call the appropriate number and ask for your surgeon. IF ANY PROBLEMS OR CONCERNS, PLEASE CONTACT YOUR DOCTOR OR CALL THE PATIENT ADVISORY NURSE AT [phone] OR EMERGENCY ROOM AT [phone], ext: [phone]. ext: surgical services [phone], med-surge [phone] You may receive a Customer Satisfaction survey in the mail from [employer]. If you receive this survey, we would ask that you take the time to complete it and return it. Your comments and suggestions are important to us; we are always looking for ways to improve the service we provide. [facility]. It was a pleasure to serve you. Source: [facility] POWERCHART Document Id: [id number] LIARY [employer] OPERATOR Miscellaneous - Ernesto Hernandez R.N. - 06/14/2012 9:52 AM CST Inpatient Patient Education The following Patient Education Materials have been given to the patient: Patient Education Materials: Discharge Instructions - Adult (Custom) 78081 Discharge Instructions (Adults) HOME CARE FOLLOWING CATARACT SURGERY Person(s) taught: Patient INTRODUCTION: Healing after cataract surgery normally takes 4 to 6 weeks. During this time it is important to follow certain procedures and guidelines to help ensure proper healing. The following information is designed to help you make a rapid, comfortable recovery. THE DAY OF YOUR SURGERY: Immediately before your surgery, you will receive a sedating medication. For the first 24 hours after being sedated, it is common to have lapses of memory, slowed reaction time and impaired judgment. THEREFORE: *Arrange for someone to accompany you to and from your appointment. *DO NOT drive or operate motorized vehicles or equipment. If you will be going home after the procedure, make arrangements for someone to drive you home. *You may wish to have a responsible adult stay with you for the remainder of the day. *Rest the remainder of the day. *DO NOTreturn to work. *DO NOTassume responsibility for small children or anyone dependent on your care. *DO NOTdrink alcoholic beverages. *You may wish to avoid making important decisions or signing legal documents. When your surgery is done, your eye will be protected with an eye patch and metal shield. You may remove the eye shield 4-6 hours after surgery. If the padding is irritating or uncomfortable, you may remove the eye shield, then remove the padding, then replace the shield over the eye. It is important to cover the eye with the shield to protect the eye when you lie down. NORMAL SIGNS AND SENSATIONS AFTER SURGERY During the 4 to 6 weeks that your eye is healing, the following is normal: *Blurry vision *Secretions from the eye *Itching *Mild tearing *Gritty sensation in the eye or a feeling of a lash being in your eye *Sensitivity to light and wind RESTRICTED AND ALLOWED ACTIVITIES After surgery, DO NOT: *Bump your eye - Move slowly and carefully especially when using stairs. *Rub your eye - This could cause problems at the surgical site and possibly prevent proper healing. *Drive - Avoid driving until your physician says your vision is clear enough to do so. *Golf for two weeks, play tennis for three weeks or swim for four weeks -It's best to avoid these activities for the recommended times and stick with quiet activities (reading, watching television) toensure proper healing. *Expose yourself to deepa, dirty environments (for two weeks) - This could irritate your eye and delay healing. YOU MAY do the following: *Read, watch TV and look at the computer screen to the degree that it is comfortable for you *Bathe or shower during the first week and thereafter, but avoid getting water directly into the operated eye *Walk *Go to the [employer] or [place], but wear your metal shield *Drive once you are advised by your physician that this is OK CARE OF YOUR EYE AFTER SURGERY: Caring for your eye after surgery includes the following: *Protecting your operated eye - Protect your eye by wearing glasses during the day and your metal eye shield at night (or during the day to provide extra protection) until your physician advises otherwise. *Removing dried secretions - During sleep your eye may secrete matter that dries on your eyelashes.To remove the secretions from your clean washcloth with warm tap water and gently wipe your lids andlashes. Do not put pressure on the eye. *Checking your vision - To check the vision in your operated eye, cover your unoperated eye and look at the same object at various times each day. If you notice that your vision is worsening, call your physician (see When to call your physician, back page). EYE DROPS AFTER SURGERY: You will need to use eye drops (anti-inflammatory and antibiotic) for several weeks after your cataract surgery. To use the drops, gently pull down on your lower eyelid and put the drop in your operated eye. Follow the schedule below: Anti-inflammatory drops (Shake well before using) Wait 5 minutes between each drop Vigamox (soriano cap) 1 drop 4 times per day until bottle is gone Diclofenac (nevarez cap) 1 drop 4 times per day until bottle is gone Omnipred (pink cap) 1 drop 4 times per day until bottle is gone Wait five minutes between putting drops in. If a drop misses your eye, or if you get only part of a drop in your eye, put in another drop. Tylenol 650-1000mg every 4 hours as needed for discomfort WHEN TO CALL YOUR PHYSICIAN: Call your eye surgeon if you notice: *Worsening of your vision. *Marked increase in eye redness or secretions from the eye. *Pain in your eye. (Itching and a mild gritty sensation are normal.) *Light flashes and multiple new spots (floaters) before your eye. FOLLOW-UP APPOINTMENT: 06/15/12 @ 9:[address] [place] [address] Treviño. Your surgeon is Dr. Felipe in [place], Cell number [phone] If you need to speak with your surgeon, call the appropriate number and ask for your surgeon. IF ANY PROBLEMS OR CONCERNS, PLEASE CONTACT YOUR DOCTOR OR CALL THE PATIENT ADVISORY NURSE AT [phone] OR EMERGENCY ROOM AT [phone], ext: [phone]. ext: surgical services [phone], med-surge [phone] You may receive a Customer Satisfaction survey in the mail from [employer]. If you receive this survey, we would ask that you take the time to complete it and return it. Your comments and suggestions are important to us; we are always looking for ways to improve the service we provide. Thank you for choosing [facility]. It was a pleasure to serve you. Source: [facility] POWERCHART Document Id: [id number] [employer] OPERATOR Miscellaneous - Ernesto Hernandez R.N. - 06/14/2012 9:52 AM CST Adult Postprocedure Assessment Adult Postprocedure Assessment Entered On: 06/14/2012 9:58 AUXILIARY PLANT OPERATOR Performed On: 06/14/2012 9:52 AUXILIARY PLANT OPERATOR by ERNESTO HERNANDEZ RN Vital Signs Temperature Core : 36.7C(Converted to: 98.1DegF) Peripheral Pulse Rate : 62/min Respiratory Rate : 20/min Systolic Blood Pressure : 101mmHg Diastolic Blood Pressure : 46mmHg (<LLOW) NIBP Mean : 64mmHg BP Location : Right upper extremity SpO2 : 96% Oxygen Saturation Monitoring Frequency : Continuous Oxygen Therapy : Room air ERNESTO HERNANDEZ RN - 06/14/2012 9:52 AUXILIARY PLANT OPERATOR General Level of Consciousness : Alert Orientation : Oriented x 3 Skin Color : Normal for ethnicity Skin Description : Dry Skin Temperature : Warm Pain Symptoms : No ERNESTO HERNANDEZ RN - 06/14/2012 9:52 AUXILIARY PLANT OPERATOR FLACC Face FLACC : No particular expression or smile Legs FLACC : Normal position or relaxed Activity FLACC : Lying quietly, normal position, moves easily Cry FLACC : No cry, awake or asleep Consolabillity FLACC : Content, relaxed FLACC Pain Scale Score : 0 ERNESTO HERNANDEZ RN - 06/14/2012 9:52 AUXILIARY PLANT OPERATOR Cardiovascular Nail Bed Color : [place] Capillary Refill : Less than 2 seconds ERNESTO HERNANDEZ RN - 06/14/2012 9:52 AUXILIARY PLANT OPERATOR Respiratory Anesthesia Type : MAC Airway Type : None Respiratory Pattern : Regular Respirations : Unlabored All Lobes Breath Sounds : Clear ERNESTO HERNANDEZ RN - 06/14/2012 9:52 AUXILIARY PLANT OPERATOR GI/ Nausea Symptoms : No ERNESTO HERNANDEZ RN - 06/14/2012 9:52 AUXILIARY PLANT OPERATOR Integumentary Integumentary Patient Stated Symptoms : None Skin Turgor : Elastic Skin Integrity : Not intact Mucous Membrane Color : [place] Mucous Membrane Description : Moist Skin Color : Normal for ethnicity Skin Description : Dry Skin Temperature : Warm ERNESTO HERNANDEZ RN - 06/14/2012 9:52 AUXILIARY PLANT OPERATOR Peripheral IV Peripheral IV Assess/Intervention Grid Peripheral IV #1 IV Activity : Discontinue Number of Attempts : 1 Date of Insertion : 06/14/2012 AUXILIARY PLANT OPERATOR IV Site : Hand Laterality : Left Catheter Size : 22 Catheter Type : Protective ERNESTO HERNANDEZ RN - 06/14/2012 9:52 AUXILIARY PLANT OPERATOR I&O Oral Intake : 140mL ERNESTO HERNANDEZ RN - 06/14/2012 9:52 AUXILIARY PLANT OPERATOR PARSAP Activity Status : Moves 4 extremities voluntarily or on command Dressing : None Respiratory Component : Able to deep breathe and cough freely Pain : Pain free Circulation Component : BP 20% of preanesthetic level Ambulation : Able to stand up and walk straight Consciousness : Fully awake Fasting and Feeding : Able to drink fluids Oxygen Saturation - Sedation : Can maintain > 92% on room air Urine Output, PARSAP : Not assessed PARSAP Score : 20 ERNESTO HERNANDEZ RN - 06/14/2012 9:52 AUXILIARY PLANT OPERATOR Thompson Thompson Agitation Sedation Scale (RASS) : Alert and calm RASS Score : 0 ERNESTO HERNANDEZ RN - 06/14/2012 9:52 AUXILIARY PLANT OPERATOR Kevin Sensory Perception Kevin : No impairment Moisture Kevin : Rarely moist Activity Kevin : Walks frequently Mobility Kevin : No limitations Nutrition Kevin : Adequate Friction and Shear Kevin : No apparent problem Kevin Score : 22 ERNESTO HERNANDEZ RN - 06/14/2012 9:52 AUXILIARY PLANT OPERATOR Hendrich II Fall Risk Confusion/Disorientation Hendrich : No Depression Fall Risk Hendrich : No Altered Elimination Fall Risk Hendrich : No Dizziness/Vertigo Fall Risk Hendrich : No Gender, Male Fall Risk Hendrich : No Prescribed Antiepileptics Hendrich : No Prescribed Benzodiazepines Hendrich : Yes Rising From Chair Fall Risk Hendrich : Able to rise in a single movement, no loss of balance with steps Fall Risk Score Hendrich II : 1 ERNESTO HERNANDEZ RN - 06/14/2012 9:52 AUXILIARY PLANT OPERATOR Education General Patient Education Powergrid Topics : Activity limitations/expectations, Discharge instructions/Medication list, Importance of follow-up visits, Medication dosage, route, scheduling, Physical limitations, Plan of care, Postoperative instructions, Printed materials, When to call health care provider Individuals Taught : Patient Barriers to Learning : None evident Teaching Method : Explanation, Printed materials Teaching Evaluation : Verbalizes understanding ERNESTO HERNANDEZ RN - 06/14/2012 9:52 AUXILIARY PLANT OPERATOR Source: [facility]Web[facility]neyCHART Document Id: [id number] LIARY PLANT OPERATOR Miscellaneous - Ernesto Hernandez RTamNTam - 06/14/2012 9:30 AM CST Adult Postprocedure Assessment Adult Postprocedure Assessment Entered On: 06/14/2012 9:37 AUXILIARY PLANT OPERATOR Performed On: 06/14/2012 9:30 AUXILIARY PLANT OPERATOR by ERNESTO HERNANDEZ RN Vital Signs Temperature Core : 36.7C(Converted to: 98.1DegF) Peripheral Pulse Rate : 62/min Respiratory Rate : 16/min Systolic Blood Pressure : 102mmHg Diastolic Blood Pressure : 43mmHg (<LLOW) NIBP Mean : 63mmHg BP Location : Left upper extremity SpO2 : 95% Oxygen Saturation Monitoring Frequency : Continuous Oxygen Therapy : Room air ERNESTO HERNANDEZ RN - 06/14/2012 9:30 AUXILIARY PLANT OPERATOR General Level of Consciousness : Alert Orientation : Oriented x 3 Skin Color : Normal for ethnicity Skin Description : Dry Skin Temperature : Warm Pain Symptoms : No ERNESTO HERNANDEZ RN - 06/14/2012 9:30 AUXILIARY PLANT OPERATOR FLACC Face FLACC : No particular expression or smile Legs FLACC : Normal position or relaxed Activity FLACC : Lying quietly, normal position, moves easily Cry FLACC : No cry, awake or asleep Consolabillity FLACC : Content, relaxed FLACC Pain Scale Score : 0 ERNESTO HERNANDEZ RN - 06/14/2012 9:30 AUXILIARY PLANT OPERATOR Cardiovascular Nail Bed Color : [place] Capillary Refill : Less than 2 seconds ERNESTO HERNANDEZ RN - 06/14/2012 9:30 AUXILIARY PLANT OPERATOR Respiratory Anesthesia Type : MAC Airway Type : None Respiratory Pattern : Regular Respirations : Unlabored All Lobes Breath Sounds : Clear ERNESTO HERNANDEZ RN - 06/14/2012 9:30 AUXILIARY PLANT OPERATOR GI/ Nausea Symptoms : No ERNESTO HERNANDEZ RN - 06/14/2012 9:30 AUXILIARY PLANT OPERATOR Integumentary Integumentary Patient Stated Symptoms : None Skin Turgor : Elastic Skin Integrity : Not intact Mucous Membrane Color : [place] Mucous Membrane Description : Moist Skin Color : Normal for ethnicity Skin Description : Dry Skin Temperature : Warm ERNESTO HERNANDEZ RN - 06/14/2012 9:30 AUXILIARY PLANT OPERATOR Peripheral IV Peripheral IV Assess/Intervention Grid Peripheral IV #1 IV Activity : Discontinue Number of Attempts : 1 Date of Insertion : 06/14/2012 AUXILIARY PLANT OPERATOR IV Site : Hand Laterality : Left Catheter Size : 22 Catheter Type : Protective Site Condition : No complications Drainage Description : None ERNESTO HERNANDEZ - 06/14/2012 9:30 AUXILIARY PLANT OPERATOR I&O Oral Intake : 100mL ERNESTO HERNANDEZ - 06/14/2012 9:30 AUXILIARY PLANT OPERATOR Neurologic Swallowing Difficulty/Aspiration Risk : None Extremity Movement : Equal Facial Symmetry : Symmetric Characteristics of Speech : Appropriate for age ERNESTO HERNANDEZ - 06/14/2012 9:30 AUXILIARY PLANT OPERATOR Modified Carole Activity : Moves 4 extremities voluntarily or on command Respiratory : Able to deep breathe and cough freely Circulation : BP +/- 20% of preprocedural level or not unusually high or low Consciousness : Fully awake O2 Saturation : O2 SAT at preprocedural level Carole l Score : 10 ERNESTO HERNANDEZ Марина - 06/14/2012 9:30 AUXILIARY PLANT OPERATOR PARSAP Activity Status : Moves 4 extremities voluntarily or on command Dressing : None Respiratory Component : Able to deep breathe and cough freely Pain : Pain free Circulation Component : BP 20% of preanesthetic level Ambulation : Able to stand up and walk straight Consciousness : Fully awake Fasting and Feeding : Able to drink fluids Oxygen Saturation - Sedation : Can maintain > 92% on room air Urine Output, PARSAP : Not assessed PARSAP Score : 20 ERNESTO HERNANDEZ - 06/14/2012 9:30 AUXILIARY PLANT OPERATOR Thompson Thompson Agitation Sedation Scale (RASS) : Alert and calm RASS Score : 0 ERNESTO HERNANDEZ - 06/14/2012 9:30 AUXILIARY PLANT OPERATOR Kevin Sensory Perception Kevin : No impairment Moisture Kevin : Rarely moist Activity Kevin : Walks frequently Mobility Kevin : No limitations Nutrition Kevin : Adequate Friction and Shear Kevin : No apparent problem Kevin Score : 22 ERNESTO HERNANDEZ - 06/14/2012 9:30 AUXILIARY PLANT OPERATOR Hendrich II Fall Risk Confusion/Disorientation Hendrich : No Depression Fall Risk Hendrich : No Altered Elimination Fall Risk Hendrich : No Dizziness/Vertigo Fall Risk Hendrich : No Gender, Male Fall Risk Hendrich : No Prescribed Antiepileptics Hendrich : No Prescribed Benzodiazepines Hendrich : Yes Rising From Chair Fall Risk Hendrich : Able to rise in a single movement, no loss of balance with steps Fall Risk Score Hendrich II : 1 ERNESTO HERNANDEZ Марина - 06/14/2012 9:30 AUXILIARY PLANT OPERATOR Education General Patient Education Powergrid Topics : Activity limitations/expectations, Discharge instructions/Medication list, Importance of follow-up visits, Medication dosage, route, scheduling, Medication precautions, side effects, food/druginteraction, Physical limitations, Plan of care, Postoperative instructions, Printed materials, Whento call health care provider Individuals Taught : Patient Barriers to Learning : None evident Teaching Method : Explanation, Printed materials Teaching Evaluation : Verbalizes understanding ERNESTO HERNANDEZ RN - 06/14/2012 9:30 AUXILIARY PLANT OPERATOR Source: [facility] Document Id: [id number] LIARY PLANT OPERATOR Miscellaneous - Ana Foss R.N. - 06/14/2012 7:28 AM CST Inpatient Patient Education The following Patient Education Materials have been given to the patient: Patient Education Materials: Custom Discharge Instructions - Adult (Custom) Custom [id number] Discharge Instructions (Adults) HOME CARE FOLLOWING CATARACT SURGERY Person(s) taught: Patient INTRODUCTION: Healing after cataract surgery normally takes 4 to 6 weeks. During this time it is important to follow certain procedures and guidelines to help ensure proper healing. The following information is designed to help you make a rapid, comfortable recovery. THE DAY OF YOUR SURGERY: Immediately before your surgery, you will receive a sedating medication. For the first 24 hours after being sedated, it is common to have lapses of memory, slowed reaction time and impaired judgment. THEREFORE: *Arrange for someone to accompany you to and from your appointment. *DO NOT drive or operate motorized vehicles or equipment. If you will be going home after the procedure, make arrangements for someone to drive you home. *You may wish to have a responsible adult stay with you for the remainder of the day. *Rest the remainder of the day. *DO NOTreturn to work. *DO NOTassume responsibility for small children or anyone dependent on your care. *DO NOTdrink alcoholic beverages. *You may wish to avoid making important decisions or signing legal documents. When your surgery is done, your eye will be protected with an eye patch and metal shield. You may remove the eye shield 4-6 hours after surgery. If the padding is irritating or uncomfortable, you may remove the eye shield, then remove the padding, then replace the shield over the eye. It is important to cover the eye with the shield to protect the eye when you lie down. NORMAL SIGNS AND SENSATIONS AFTER SURGERY During the 4 to 6 weeks that your eye is healing, the following is normal: *Blurry vision *Secretions from the eye *Itching *Mild tearing *Gritty sensation in the eye or a feeling of a lash being in your eye *Sensitivity to light and wind RESTRICTED AND ALLOWED ACTIVITIES After surgery, DO NOT: *Bump your eye - Move slowly and carefully especially when using stairs. *Rub your eye - This could cause problems at the surgical site and possibly prevent proper healing. *Drive - Avoid driving until your physician says your vision is clear enough to do so. *Golf for two weeks, play tennis for three weeks or swim for four weeks -It's best to avoid these activities for the recommended times and stick with quiet activities (reading, watching television) toensure proper healing. *Expose yourself to deepa, dirty environments (for two weeks) - This could irritate your eye and delay healing. YOU MAY do the following: *Read, watch TV and look at the computer screen to the degree that it is comfortable for you *Bathe or shower during the first week and thereafter, but avoid getting water directly into the operated eye *Walk *Go to the [employer] or [employer], but wear your metal shield *Drive once you are advised by your physician that this is OK CARE OF YOUR EYE AFTER SURGERY: Caring for your eye after surgery includes the following: *Protecting your operated eye - Protect your eye by wearing glasses during the day and your metal eye shield at night (or during the day to provide extra protection) until your physician advises otherwise. *Removing dried secretions - During sleep your eye may secrete matter that dries on your eyelashes.To remove the secretions from your clean washcloth with warm tap water and gently wipe your lids andlashes. Do not put pressure on the eye. *Checking your vision - To check the vision in your operated eye, cover your unoperated eye and look at the same object at various times each day. If you notice that your vision is worsening, call your physician (see When to call your physician, back page). EYE DROPS AFTER SURGERY: You will need to use eye drops (anti-inflammatory and antibiotic) for several weeks after your cataract surgery. To use the drops, gently pull down on your lower eyelid and put the drop in your operated eye. Follow the schedule below: Anti-inflammatory drops (Shake well before using) Wait 5 minutes between each drop Vigamox (soriano cap) 1 drop 4 times per day until bottle is gone Diclofenac (nevarez cap) 1 drop 4 times per day until bottle is gone Omnipred (pink cap) 1 drop 4 times per day until bottle is gone Wait five minutes between putting drops in. If a drop misses your eye, or if you get only part of a drop in your eye, put in another drop. Tylenol 650-1000mg every 4 hours as needed for discomfort WHEN TO CALL YOUR PHYSICIAN: Call your eye surgeon if you notice: *Worsening of your vision. *Marked increase in eye redness or secretions from the eye. *Pain in your eye. (Itching and a mild gritty sensation are normal.) *Light flashes and multiple new spots (floaters) before your eye. FOLLOW-UP APPOINTMENT: 06/15/12 @ 9:[address] [place] [address] Treviño. Your surgeon is Dr. Felipe in [place], Cell number [phone] If you need to speak with your surgeon, call the appropriate number and ask for your surgeon. IF ANY PROBLEMS OR CONCERNS, PLEASE CONTACT YOUR DOCTOR OR CALL THE PATIENT ADVISORY NURSE AT [phone] OR EMERGENCY ROOM AT [phone], ext: [phone]. ext: surgical services [phone], med-surge [phone] You may receive a Customer Satisfaction survey in the mail from [employer]. If you receive this survey, we would ask that you take the time to complete it and return it. Your comments and suggestions are important to us; we are always looking for ways to improve the service we provide. Thank you for choosing [facility]. It was a pleasure to serve you. Source: [facility] POWERCHART Document Id: [id number] [employer] documented in this encounter Plan of Treatment Not on filedocumented as of this encounter Procedures Procedure Name Priority Date/Time Associated Diagnosis Comme nts GLUCOSE POCT, B Routine 06/14/2012 10:06 AM Resul ts for this [employer] OPERATOR procedure are i n the results section. documented in this encounter Results Glucose, POCT (06/14/2012 10:06 AM AUXILI[employer] PLANT OPERATOR) P athologist Signature Glucose, POCT, 71 MGDL POWERCHART B Specimen (Source) Anatomical Collection Method Collection Time Re ceived Time Location / / Volume Laterality 06/14/2012 10:06 AM AUX[employer] OPER[employer] Narrative POWERCHART - 06/14/2012 10:06 AM AUXILIARY PLANT OPERATOR {\[id number]{\fonttbl{\f0\fnil\fcharset0 MS Shell Dlg;}} \[id number]\pard\f0\fs20 Patient refu sed juice or nourishment - stating she just wants to go home, take her medication and have a roll and coffee. ??States she is comfortable with her blood sugar. ?? [employer] consulted. ??Advised to docu ment her refusal. \par } Historical Provider LAB POCT ORDERABLES-MANUAL Performing Organization Address City/State/ZIP Code Phon e Number POWERCHART documented in this encounter Visit Diagnoses Not on filedocumented in this encounter
--- OUTSIDE RECORDS SUMMARY | 2022-04-03 11:08 | XMS_ITS | Encounter Summary ---
:1955 Author Organization [facility] Address [address] [place] [id number] Care Team Providers Name Role Phone Unavailable Primary Care Provider Unavailable Encounter Details Date Type Department Care Team Description 05/31/2012 Hospital Encounter HX [facility] SURGERY Yisel Felipe M.D. [address] [place] [id number] (Wo rk) Social History Tobacco Use Types Packs/Day Years Used Date Smoking Tobacco: Never Assessed Sex Assigned at Date Recorded Not on file documented as of this encounter Last Filed Vital Signs Vital Sign Reading Time Taken Comments Blood Pressure 106/64 05/31/2012 9:12 AM FILING MACHINE OPERATOR Pulse 66 05/31/2012 9:12 AM FILING MACHINE OPERATOR Temperature - - Respiratory Rate 20 05/31/2012 9:12 AM FILING MACHINE OPERATOR Oxygen Saturation - - Inhaled Oxygen Concentration - - Weight - - Height 160 cm (5' 2.99) 05/31/2012 7:46 AM FILING MACHINE OPERATOR Body Mass Index - - documented in this encounter Discharge Summaries Ernesto Hernandez R.N. - 05/31/2012 9:20 AM CST Inpatient Discharge Instructions [facility] [address] [place], [place] [id number] Patient Discharge Instructions Name: MARCO A ORDONEZ Current Date: 05/31/2012 09:20:39 : 1955 12:00 AM [facility] Number: [id number] Patient Address: [address] [place] [phone] Patient Primary Care Provider: Name: PCPFREDIS Phone: Discharge Diagnosis: [facility] in [place] would like to thank you for allowing us to assist you withyour healthcare needs. The following includes patient education materials and information regarding your injury/illness. Comment: MARCO A ORDONEZ has been given the following list of [...] Date Time Care Provider Signature Date Time [address] [address] Name: MARCO A ORDONEZ Current Date: 05/31/2012 09:20:39 Source: [facility] Document Id: [id number] Ernesto Beth R.N. - 05/31/2012 9:20 AM CST Discharge Medication List [facility] [address] [place] [address] Discharge Medication List Name: MARCO A ORDONEZ Current Date: 05/31/2012 09:20:38 : 1955 12:00 AM [facility] Number: [id number] Patient Address: [address] [place] [id number] Patient Primary Care Provider: Name: PCP, FREDIS Phone: Discharge Diagnosis: [facility] in [place] would like to thank you for allowing [...] Comment: Electronically Signed By: Signed On: Source: [facility] POWERCHART Document Id: [id number] NG MACHINE OPERATOR documented in this encounter Medications at [...] of this encounter Procedure Notes Ernesto Hernandez RRex - 05/31/2012 8:58 AM CST Capillary Blood Glucose Point of Care Capillary Blood Glucose Point of Care Entered On: 05/31/2012 9:17 FILING MACHINE OPERATOR Performed On: 05/31/2012 8:58 FILING MACHINE OPERATOR by ERNESTO HERNANDEZ RN Blood Glucose Blood Glucose Testing Reason : Other: post-surgical Glucose Point Of Care : 118mg/dL Blood Glucose Stick Site : Finger, Right, Other: thumb ERNESTO HERNANDEZ RN - 05/31/2012 9:16 FILING MACHINE OPERATOR Source: [facility] Document Id: [id number] NG MACHINE OPERATOR Rebecca Cortes R.N. - 05/31/2012 7:46 AM CST Preprocedure Checklist Preprocedure Checklist Entered On: 05/31/2012 7:53 FILING MACHINE OPERATOR Performed On: 05/31/2012 7:46 FILING MACHINE OPERATOR by REBECCA CORTES RN Checklist Last Fluid Intake : 05/31/2012 6:30 FILING MACHINE OPERATOR Last Food Intake : 05/31/2012 19:00 FILING MACHINE OPERATOR Beta Octaviano Last Dose : 05/31/2012 6:30 FILING MACHINE OPERATOR Status : Patient denies REBECCA CORTES RN - 05/31/2012 7:46 FILING MACHINE OPERATOR Surgery Prep Grid Contacts/Glasses Removed : Yes Preop Scrub Night Prior to Surgery : NA Prosthesis Removed : NA Surgical Prep Verified : Yes Tampon Removed : NA Wearing Patient Gown : Yes Voided honey grader and blender to procedure : Yes Dentures Removed : NA Hairpins/Hairpiecies Removed : NA Hearing Aid Removed : NA Home Prep Complete : Yes Jewelry/Piercing Removed : NA Makeup/Nail English Removed : NA Oral Hygiene : NA Preop Scrub AM of Surgery : NA REBECCA CORTES RN - 05/31/2012 7:46 FILING MACHINE OPERATOR Surgical Preparation : N/A REBECCA CORTES RN - 05/31/2012 7:46 FILING MACHINE OPERATOR Patient Rights Grid Blood Consent Signed : ALEJANDRA Surgical/Procedure Consent Signed : Yes REBECCA CORTES RN - 05/31/2012 7:46 FILING MACHINE OPERATOR Family Location : [place] honey grader and blender REBECCA CORTES RN - 05/31/2012 7:46 FILING MACHINE OPERATOR Checklist II Patient Safety Grid Allergy Band on and Verified : NA ID Band on and Verified : Yes Preop Medications Sent With Patient : Yes Relevant Images in Medical Record : NA [...] Medical Record : Yes Implants Verified : NA Medication Reconciliation on Chart : Yes Pacemaker/AICD Verified : REBECCA LIRIANO RN - 05/31/2012 7:46 FILING MACHINE OPERATOR RN Who Verified Site : REBECCA CORTES RN Physician Who Verified Site : SPIKE FELIPE MD, GWYNNE A RN - 05/31/2012 7:46 FILING MACHINE OPERATOR SINCERE Screening Known Obstructive Sleep Apnea : No Uses Home CPAP/BiPAP : No Risk for Sleep Apnea : No REBECCA CORTES RN - 05/31/2012 7:46 FILING MACHINE OPERATOR SINCERE Assessment Do you have high blood pressure or have you been told to take medication for high blood pressure? : Yes Frequency of Snoring : Always (every night) Frequency of Gasping, Choking, Snorting : Never Neck Circumference (cm) : 32/33 Total Sleep Apnea Clinical Score : 3 Total Number of Historical Features : 1 REBECCA CORTES RN - 05/31/2012 7:46 FILING MACHINE OPERATOR Valuables/Belongings Valuables/Belongings Grid Valuables at Bedside Clothes, Patient Valuables : Other: eyeglasses REBECCA CORTES RN - 05/31/2012 7:46 FILING MACHINE OPERATOR Room Orientation/Facility Policy Reviewed : Yes Home Medication Disposition : None brought in with patient REBECCA CORTES RN - 05/31/2012 7:46 FILING MACHINE OPERATOR Education Preprocedure Education Grid Procedure Type : as above Education Topics : Anesthesia/Sedation, Plan of care Individuals Taught : Patient Barriers to Learning : None evident Teaching Method : Explanation Teaching Evaluation : Verbalizes understanding REBECCA CORTES RN - 05/31/2012 7:46 FILING MACHINE OPERATOR Preop Holding Mode of Arrival : Ambulatory Preoperative Orders Complete : Yes REBECCA CORTES RN - 05/31/2012 7:46 FILING MACHINE OPERATOR Advance Directive Advanced Directives : No REBECCA CORTES RN - 05/31/2012 7:46 FILING MACHINE OPERATOR Vital Signs Temperature Core : 36.6C(Converted to: 97.9DegF) Peripheral Pulse Rate : 80/min Respiratory Rate : 16/min Systolic Blood Pressure : 140mmHg Diastolic Blood Pressure : 72mmHg NIBP Mean : 95mmHg SpO2 : 99% Oxygen Therapy : Room air Height : 160cm(Converted to: 5ft 3inch(es)) Height Source : Estimated Estimated Weight : 53kg Estimated Weight Conversion to Pounds : 116.60lb REBECCA CORTES RN - 05/31/2012 7:46 FILING MACHINE OPERATOR Allergy Preprocedural Pause Correct Patient Identity : Patient verbalizes self, Patient wristband ID, Family/responsible alliance party ID, Patient verbalizes Correct Procedure Site and Side : left cataract extraction with concurrent intraoccular lens implant Correct Procedure Site/Side Verified By : Patient/responsible alliance party, Nurse, MD Site Marking : Yes Pre-Procedure Pause Verbal Confirm. of : Procedure, Site, Side, Patient Position, Patient ID REBECCA CORTES RN - 05/31/2012 7:46 FILING MACHINE OPERATOR [facility] Document Id: [id number] NG MACHINE OPERATOR documented in this encounter Nursing Notes Rebecca Cortes R.N. - 05/31/2012 7:40 AM CST Day Surgery Admission History/Asmt Adult Day Surgery Admission History/Asmt Adult Entered On: 05/31/2012 7:46 FILING MACHINE OPERATOR Performed On: 05/31/2012 7:40 FILING MACHINE OPERATOR by REBECCA CORTES RN General Info Preferred Name : Marco A Mode of Arrival : Ambulatory Accompanied By : Significant other Chief Complaint : left cataract Preferred Communication Mode : Verbal Information Given By : Patient Languages : Hungarian Status : Patient denies Have you received chemotherapy in last 48 hours? : No REBECCA CORTES RN - 05/31/2012 7:40 FILING MACHINE OPERATOR Allergy Allergies (Active) aspirin Estimated Onset Date: Unspecified ; Created By: CARLOS ACRE LPN, RT; Reaction Status: Active ; Category: Drug ; Substance: aspirin ; Type: Allergy ; Updated By: CARLOS ARCE LPN, RT; Reviewed Date: 12/21/2011 17:30 CDT Anesth/Transfusion Anesthesia/Transfusions : Prior anesthesia REBECCA CORTES RN - 05/31/2012 7:40 FILING MACHINE OPERATOR ID Screen Drug Resistant Organism : No REBECCA CORTES RN - 05/31/2012 7:40 FILING MACHINE OPERATOR Nutrition Nutrition Risk Factors by History Adult : None Home Diet : Diabetic Feeding Ability : Complete independence Eating Difficulties : None Appetite : Good REBECCA CORTES RN - 05/31/2012 7:40 FILING MACHINE OPERATOR Home Environment Current Daily Living Assistance : None Living Situation : Home independently Home Equipment : Blood glucose monitor Sensory Deficits : None Mobility Assistance Prior to Admission : Independent Current Home Treatments : None Professional Skilled Services : None Special Services and Community Resources : None REBECCA CORTES RN - 05/31/2012 7:40 FILING MACHINE OPERATOR Dependent Habits Tobacco Use/Currently Using : Yes Tobacco Use/Advised to Quit : Yes Smoking Status : Current every day smoker REBECCA CORTES RN - 05/31/2012 7:40 FILING MACHINE OPERATOR Tobacco Use Grid Type : Cigarettes Cigarette Use Packs/Day : 1 REBECCA CORTES RN - 05/31/2012 7:40 FILING MACHINE OPERATOR Caffeine Use Grid Caffeine Use : Current Type : Coffee, Soft drinks Frequency : Daily REBECCA CORTES RN - 05/31/2012 7:40 FILING MACHINE OPERATOR Recreational Drug Use Grid Drug Use : None REBECCA CORTES RN - 05/31/2012 7:40 FILING MACHINE OPERATOR Psychosocial Adult Domestic Abuse Concerns : None REBECCA CORTES - 05/31/2012 7:40 FILING MACHINE OPERATOR Advance Directive Advanced Directives : No REBECCA CORTES RN - 05/31/2012 7:40 FILING MACHINE OPERATOR Educ Needs Patient/Family Education Needs : Plan of care REBECCA CORTES RN - 05/31/2012 7:40 FILING MACHINE OPERATOR Learning Style Preference Adult Grid Patient : Verbal explanation Family : Verbal explanation REBECCA CORTES RN - 05/31/2012 7:40 FILING MACHINE OPERATOR Education Preprocedure Education Grid Procedure Type : left cataract extraction with concurrent lens implant Education Topics : Anesthesia/Sedation, Plan of care Individuals Taught : Patient Barriers to Learning : None evident Teaching Method : Explanation Teaching Evaluation : Verbalizes understanding REBECCA CORTES RN - 05/31/2012 7:40 FILING MACHINE OPERATOR Outpatient Assessment Procedural Respiratory : Respirations [...] Musculoskeletal : Activity tolerance without distress REBECCA CORTES RN - 05/31/2012 7:40 FILING MACHINE OPERATOR Psycho/Emotional Pain Symptoms : No Affect/Behavior : Calm, Cooperative, Appropriate REBECCA CORTES RN - 05/31/2012 7:40 FILING MACHINE OPERATOR Peripheral IV Peripheral IV Assess/Intervention Grid Peripheral IV #1 IV Activity : Start Number of Attempts : 1 Date of Insertion : 05/31/2012 FILING MACHINE OPERATOR IV Site : Hand Laterality : Left Catheter Size : 22 Catheter Type : Protective Site Condition : No complications Drainage Description : None Infiltration Score : 0 Phlebitis Score : 0 Flow/ Patency : No complications REBECCA CORTES RN - 05/31/2012 7:40 FILING MACHINE OPERATOR Kevin Sensory Perception Kevin : No impairment Moisture Kevin : Rarely moist Activity Kevin : Walks frequently Mobility Kevin : No limitations Nutrition Kevin : Adequate Friction and Shear Kevin : Potential problem Kevin Score : 21 REBECCA CORTES RN - 05/31/2012 7:40 FILING MACHINE OPERATOR Hendrich II Fall Risk Confusion/Disorientation Hendrich [...] Risk Score Hendrich II : 2 REBECCA CORTES RN - 05/31/2012 7:40 FILING MACHINE OPERATOR DC Needs Anticipated Discharge Date : 05/31/2012 FILING MACHINE OPERATOR Discharge To, Anticipated : Home independently Home Treatments, Anticipated : Blood glucose monitoring Home Equipment, Anticipated : Blood glucose monitor Professional Skilled Services, Anticipated : None Special Serv & Comm Res, Anticipated : None Needs Assistance with Transportation : No Needs Assistance at Home Upon Discharge : No REBECCA CORTES RN - 05/31/2012 7:40 FILING MACHINE OPERATOR FLACC Face FLACC : No particular expression or smile Legs FLACC : Normal position or relaxed Activity FLACC : Lying quietly, normal position, moves easily Cry FLACC : No cry, awake or asleep Consolabillity FLACC : Content, relaxed FLACC Pain Scale Score : 0 REBECCA CORTES RN - 05/31/2012 7:40 FILING MACHINE OPERATOR Urinary Catheter Urinary Catheter Activity Type : Other: none REBECCA CORTES RN - 05/31/2012 7:40 FILING MACHINE OPERATOR Integumentary Integumentary Patient Stated Symptoms : None Skin Turgor : Elastic Skin Integrity : Intact Mucous Membrane Color : [place] Mucous Membrane Description : Moist Skin Color : Normal for ethnicity Skin Description : Dry Skin Temperature : Warm REBECCA CORTES RN - 05/31/2012 7:40 FILING MACHINE OPERATOR Source: [facility] Document Id: [id number] NG MACHINE OPERATOR documented in this encounter OR Notes Op Note - Spike Felipe M.D. - 05/31/2012 12:00 AM CST [id number] Preoperative Diagnosis: Visually disabling nuclear sclerotic and subcapsular cataract of the left eye. Postoperative Diagnosis: Visually disabling nuclear sclerotic and subcapsular cataract of the left eye. Procedure Performed: Phacoemulsification with lens implantation, Left eye. Surgeon: Spike Felipe M.D. Anesthesia: MAC. Complications: None. Indication: Ms. Ordonez presented with complaints of poor vision in her left eye. She was noted to have a dense nuclear sclerotic and subcapsular cataract. The risks, benefits and alternatives to surgery were discussed including suprachoroidal hemorrhage and ophthalmitis and loss of the eye. The patient desired an emmetropic refractive end point and a Consent was obtained. Description of Procedure: Patient is brought to the operating room where the left eye was sterilely prepped and draped. A lid speculum was placed in the eye. A 2:00 paracentesis tract was made and Viscoat elastic [...] the Phaco chopper and handpiece. Each nuclear fragment w as captured, phacoemulsified and removed. The epinuclear bowl followed and the posterior capsule waspolished. Viscoat elastic filled the capsule and anterior chamber. A lens Model [id number] with a power of 22.0 Diopters was inserted into the capsule without difficulty. Residual Viscoat elastic was removed from the capsule and anterior chamber. The stroma of the wound and paracentesis tract were hydratedwith Balance Salt solution. The wounds were checked for leaks and none were found. The patient tolerated the procedure well and left the operating suite in good condition. Spike Felipe M.D./olga Electronically Signed By: SPIKE FELIPE MD On: 05/31/2012 11:47 AM Source: [facility] [employer] Document Id: [id number] NG MACHINE OPERATOR documented in this encounter Miscellaneous Notes Miscellaneous - Ernesto Hernandez RTamN. - 05/31/2012 9:20 AM CST Inpatient Patient Education The following Patient Education Materials have been given to the patient: Patient Education Materials: No instructions were provided. No instructions were provided. Source: [facility] [employer] Document Id: [id number] NG MACHINE OPERATOR Miscellaneous - Roseanne Patrick R.N. - 05/31/2012 9:04 AM FILING MACHINE OPERATOR Inpatient Patient Education The following Patient Education Materials have been given to the patient: Patient Education Materials: No instructions were provided. No instructions were provided. Source: [facility] [employer] Document Id: [id number] NG MACHINE OPERATOR Miscellaneous - Ernesto Hernandez R.N. - 05/31/2012 8:58 AM CST Adult Postprocedure Assessment Adult Postprocedure Assessment Entered On: 05/31/2012 9:11 FILING MACHINE OPERATOR Performed On: 05/31/2012 8:58 FILING MACHINE OPERATOR by ERNESTO HERNANDEZ RN Vital Signs Temperature Core : 36.8C(Converted to: 98.2DegF) Peripheral Pulse Rate : 69/min Respiratory Rate : 14/min Systolic Blood Pressure : 97mmHg Diastolic Blood Pressure : 57mmHg NIBP Mean : 70mmHg SpO2 : 95% Oxygen Saturation Monitoring Frequency : Continuous Oxygen Therapy : Room air ERNESTO HERNANDEZ RN - 05/31/2012 8:58 FILING MACHINE OPERATOR General Level of Consciousness : Alert Orientation : Oriented x 3 Skin Color : Normal for ethnicity Skin Description : Dry Skin Temperature : Warm Pain Symptoms : No ERNESTO HERNANDEZ RN 05/31/2012 8:58 FILING MACHINE OPERATOR FLACC Face FLACC : No particular expression or smile Legs FLACC : Normal position or relaxed Activity FLACC : Lying quietly, normal position, moves easily Cry FLACC : No cry, awake or asleep Consolabillity FLACC : Content, relaxed FLACC Pain Scale Score : 0 ERNESTO HERNANDEZ [facility] 05/31/2012 8:58 FILING MACHINE OPERATOR Cardiovascular Heart Rhythm : Regular Nail Bed Color : [place] Capillary Refill : Less than 2 seconds ERNESTO HERNANDEZ 05/31/2012 8:58 FILING MACHINE OPERATOR Respiratory Anesthesia Type : MAC Airway Type : None Respiratory Pattern : Regular Respirations : Unlabored All Lobes Breath Sounds : Clear ERNESTO HERNANDEZ 05/31/2012 8:58 FILING MACHINE OPERATOR GI/ Nausea Symptoms : No ERNESTO HERNANDEZ 05/31/2012 8:58 FILING MACHINE OPERATOR Integumentary Integumentary Patient Stated Symptoms : None Skin Turgor : Elastic Skin Integrity : Intact Mucous Membrane Color : [place] Mucous Membrane Description : Moist ERNESTO HERNANDEZ 05/31/2012 8:58 FILING MACHINE OPERATOR Peripheral IV Peripheral IV Assess/Intervention Grid Peripheral IV #1 IV Activity : Discontinue Number of Attempts : 1 Date of Insertion : 05/31/2012 FILING MACHINE OPERATOR IV Site : Hand Laterality : Left Catheter Size : 22 Catheter Type : Protective Site Condition : No complications Drainage Description : None ERNESTO HERNANDEZ 05/31/2012 8:58 FILING MACHINE OPERATOR Neurologic Swallowing Difficulty/Aspiration Risk : None Extremity Movement : Equal Facial Symmetry : Symmetric Characteristics of Speech : Appropriate for age ERNESTO HERNANDEZ 05/31/2012 8:58 FILING MACHINE OPERATOR PARSAP Activity Status : Moves 4 [...] assessed PARSAP Score : 20 ERNESTO HERNANDEZ 05/31/2012 8:58 FILING MACHINE OPERATOR Thompson Thompson Agitation Sedation Scale (RASS) : Alert and calm RASS Score : 0 ERNESTO HERNANDEZ [facility] 05/31/2012 8:58 FILING MACHINE OPERATOR Kevin Sensory Perception Keivn : No impairment Moisture Kevin : Rarely moist Activity Kevin : Walks frequently Mobility Kevin : No limitations Nutrition Kevin : Adequate Friction and Shear Kevin : No apparent problem Kevin Score : 22 ERNESTO HERNANDEZ RN - 05/31/2012 8:58 FILING MACHINE OPERATOR Hendrich II Fall Risk Confusion/Disorientation Hendrich [...] II : 1 ERNESTO HERNANDEZ RN - 05/31/2012 8:58 FILING MACHINE OPERATOR Education General Patient Education [employer] Topics : Activity limitations/expectations, Discharge instructions/Medication list, Exercise, Importance of follow-up visits, Medication dosage, route, scheduling, Medication precautions, side effects,food/drug interaction, Pain Management, Physical limitations, Plan of care, Postoperative instructions, Safety, fall, When to call health care provider Individuals Taught : Patient Barriers to Learning : None evident Teaching Method : Explanation, Printed materials Teaching Evaluation : Verbalizes understanding ERNESTO HERNANDEZ RN - 05/31/2012 8:58 FILING MACHINE OPERATOR [facility] Document Id: [id number] NG MACHINE OPERATOR Miscellaneous - Ernesto Hernandez R.N. - 05/31/2012 8:44 AM CST Adult Postprocedure Assessment Adult Postprocedure Assessment Entered On: 05/31/2012 8:51 FILING MACHINE OPERATOR Performed On: 05/31/2012 8:44 FILING MACHINE OPERATOR by ERNESTO HERNANDEZ RN Vital Signs Temperature Core : 36.9C(Converted to: 98.4DegF) Peripheral Pulse Rate : 70/min Respiratory Rate : 20/min Systolic Blood Pressure : 106mmHg Diastolic Blood Pressure : 62mmHg NIBP Mean : 77mmHg BP Location : Left upper extremity SpO2 : 95% Oxygen Saturation Monitoring Frequency : Continuous Oxygen Therapy : Room air ERNESTO HERNANDEZ RN - 05/31/2012 8:44 FILING MACHINE OPERATOR General Level of Consciousness : Alert Orientation : Oriented x 3 Skin Color : Normal for ethnicity Skin Description : Dry Skin Temperature : Warm Pain Symptoms : No ERNESTO HERNANDEZ 05/31/2012 8:44 FILING MACHINE OPERATOR FLACC Face FLACC : No particular expression or smile Legs FLACC : Normal position or relaxed Activity FLACC : Lying quietly, normal position, moves easily Cry FLACC : No cry, awake or asleep Consolabillity FLACC : Content, relaxed FLACC Pain Scale Score : 0 ERNESTO HERNANDEZ 05/31/2012 8:44 FILING MACHINE OPERATOR Cardiovascular Heart Rhythm : Regular Nail Bed Color : [place] Capillary Refill : Less than 2 seconds ERNESTO HERNANDEZ 05/31/2012 8:44 FILING MACHINE OPERATOR Respiratory Anesthesia Type : MAC Airway Type : None Respiratory Pattern : Regular Respirations : Unlabored All Lobes Breath Sounds : Clear ERNESTO HERNANDEZ 05/31/2012 8:44 FILING MACHINE OPERATOR GI/ Nausea Symptoms : No ERNESTO HERNANDEZ 05/31/2012 8:44 FILING MACHINE OPERATOR Integumentary Integumentary Patient Stated Symptoms : None Skin Turgor : Elastic Skin Integrity : Intact Mucous Membrane Color : [place] Mucous Membrane Description : Moist Skin Color : Normal for ethnicity Skin Description : Dry Skin Temperature : Warm ERNESTO HERNANDEZ 05/31/2012 8:44 FILING MACHINE OPERATOR Peripheral IV Peripheral IV Assess/Intervention Grid Peripheral IV #1 IV Activity : Start, Assessment Number of Attempts : 1 Date of Insertion : 05/31/2012 FILING MACHINE OPERATOR IV Site : Hand Laterality : Left Catheter Size : 22 Catheter Type : Protective Site Condition : No complications Drainage Description : None ERNESTO HERNANDEZ 05/31/2012 8:44 FILING MACHINE OPERATOR Neurologic Swallowing Difficulty/Aspiration Risk : None Extremity Movement : Equal Facial Symmetry : Symmetric Characteristics of Speech : Appropriate for age ERNESTO HERNANDEZ 05/31/2012 8:44 FILING MACHINE OPERATOR Modified Carole Activity : Moves 4 extremities voluntarily or on command Respiratory : Able to deep breathe and cough freely Circulation : BP +/- 20% of preprocedural level or not unusually high or low Consciousness : Fully awake O2 Saturation : O2 SAT at preprocedural level Carole l Score : 10 ERNESTO HERANNDEZ 05/31/2012 8:44 FILING MACHINE OPERATOR PARSAP Activity Status : Moves 4 extremities voluntarily or on command Dressing : None Respiratory Component : Able to deep breathe and cough freely Pain : Pain free Circulation Component : BP 20% of preanesthetic level Consciousness : Fully awake Oxygen Saturation - Sedation : Can maintain > 92% on room air Urine Output, PARSAP : Not assessed ERNESTO HERNANDEZ RN - 05/31/2012 8:44 FILING MACHINE OPERATOR Thompson Thompson Agitation Sedation Scale (RASS) : Alert and calm RASS Score : 0 ERNESTO HERNANDEZ RN - 05/31/2012 8:44 FILING MACHINE OPERATOR Kevin Sensory Perception Kevin : No impairment Moisture Kevin : Rarely moist Activity Kevin : Walks frequently Mobility Kevin : No limitations Nutrition Kevin : Adequate Friction and Shear Kevin : No apparent problem Kevin Score : 22 ERNESTO HERNANDEZ RN - 05/31/2012 8:44 FILING MACHINE OPERATOR Hendrich II Fall Risk Confusion/Disorientation Hendrich [...] II : 1 ERNESTO HERNANDEZ RN - 05/31/2012 8:44 FILING MACHINE OPERATOR Education General Patient Education Power[employer] Topics : Activity limitations/expectations, Discharge instructions/Medication list, Exercise, Importance of follow-up visits, Medication precautions, side effects, food/drug interaction, Nutrition/Diet, Physical limitations, Plan of care, Printed materials, Safety, fall, When to call health care provider Individuals Taught : Patient Barriers to Learning : None evident Teaching Method : Explanation, Printed materials Teaching Evaluation : Verbalizes understanding ERNESTO HERNANDEZ RN - 05/31/2012 8:44 FILING MACHINE OPERATOR [facility] ComputerCHART Document Id: [id number] NG MACHINE OPERATOR documented in this encounter Plan of Treatment Not on filedocumented as of this encounter Procedures Procedure Name Priority Date/Time Associated Diagnosis Comme nts GLUCOSE POCT, B Routine 05/31/2012 9:17 AM Result s for this FILING MACHINE OPERATOR procedure are i n the results section. documented in this encounter Results Glucose, POCT (05/31/2012 9:17 AM FILING MACHINE OPERATOR) P athologist Signature Glucose, POCT, 118 MGDL POWERCHART B Specimen (Source) Anatomical Collection Method Collection Time Re ceived Time Location / / Volume Laterality 05/31/2012 9:17 AM FILING MACHINE OPERATOR Historical Provider LAB POCT ORDERABLES-MANUAL Performing Organization Address City/State/ZIP Code Phon e Number POWERCHART documented in this encounter Visit Diagnoses Not on filedocumented in this encounter
--- OUTSIDE RECORDS SUMMARY | 2022-04-03 11:08 | XMS_ITS | Encounter Summary ---
:1955 Author Organization [facility] Address [address] [place] [address] Care Team Providers Name Role Phone Elsewhere, Pcp Primary Care Provider Unavailable Encounter Details Date Type Department Care Team Description 05/20/2021 Hospital Encounter Department of Jenn Roa Fract ure Wrist Radiology in Red P.A.-C. Closed Initial [place], [place] [facility] [address] [place] [phone] Social History Tobacco Use [...] gabapentin (NEURONTIN) TAKE 1 AND ONE-HALF 0 02/1 01/2019 600 mg tablet TABLETS BY MOUTH AT [...] 200 mg 24 hr tablet oxyCODONE (ROXICODONE) Take 1 tablet (5 mg [...] 0 09/28/201305/26 (PRINIVIL,ZESTRIL) 40 daily. mg tablet oxyCODONE (ROXICODONE) Take 1 tablet (5 mg 30 tablet 0 05/0305/26/2021 5 mg immediate release total) by mouth every tabletIndications: 4 (four) hours as Prolonged Acute needed for pain Pain/Traumatic Injury Indication: Prolonged Acute Pain/Traumatic Injury. documented as of this encounter Plan of Treatment Not on filedocumented as of this encounter Procedures Procedure Name Priority Date/Time Associated Comments Diagnosis DX WRIST RIGHT 3+ RAD - Routine 05/20/2021 8:22 Fracture Wrist Resu lts for this VIEWS (most inpatients AM CASING CREW PUSHER Closed Initial procedure are in and all Right the results outpatients) section. documented in this encounter Results DX Wrist Right 3+ Views (05/20/2021 8:22 AM CASING CREW PUSHER) Anatomical Region Laterality Modality Upper Extremity, Wrist, Musculoskeletal RST LOS, Right Digital Radiography Musculoskeletal ARZ LOS, Muskuloskeletal FLA LOS Specimen (Source) Anatomical Collection Method Collection Time Re ceived Time Location / / Volume Laterality 05/20/2021 10:41 AM CASING CREW PUSHER Impressions 05/20/2021 10:42 AM CASING CREW PUSHER Unchanged alignment of the comminuted distal radial metaphyseal fracture. Fracture lucencies persist. No change in alignment. Cast material obscures some detail. Comparison with . Narrative 05/20/2021 10:42 AM CASING CREW PUSHER EXAM: DX WRIST RIGHT 3+ VIEWS Procedure Note Yane Gifford M.D. - 05/20/2021Form atting of this note might be different from the original. EXAM: DX WRIST RIGHT 3+ VIEWS IMPRESSION: Unchanged alignment of the comminuted di stal radial metaphyseal fracture. Fracture lucencies persist. No change in alignment. Cast material obscures some detail. Comparison with . Jenn [facility]BSON [facility] PROCE RIGOBERTO documented in this encounter Visit Diagnoses Diagnosis Fracture Wrist Closed Initial Right documented in this encounter Care Teams Model Maker Scale Relationship Specialty Start Date End Date Elsewhere, Pcp PCP - General Family Medicine 03/11/21 documented as of this encounter
--- OUTSIDE RECORDS SUMMARY | 2022-04-03 11:08 | XMS_ITS | Encounter Summary ---
:1955 Author Organization [facility] Address [address] [place] [address] Care Team Providers Name Role Phone Unavailable Primary Care Provider Unavailable Encounter Details Date Type Department Care Team Description 05/04/2012 Hospital Encounter HX [facility] Geneva Avendano M.D. [address] [place], [place] [phone] (Wo rk) Social History [...] of this encounter Miscellaneous Notes Miscellaneous - Edson Manuel M.D. - 05/04/2012 12:00 AM CDT [id number] May 04, 2012 Dov Treviño O.D. [facility] [address] [facility] [address] RE: Bella Jones [address] [facility] [address] EMR#: [id number] : 1955 Dear Dov: Thanks for having me see Bella Jones regarding cataracts. As you recall, she is a 56-year-old diabetic who has noticed a definite decline in the quality of vision in her left eye and to some extent her right eye as well. Her past ocular history is remarkable for refractive error, cataracts and diabetes mellitus without retinopathy. I had the pleasure of seeing Bella on May 03, 2012, at which time her corrected visual acuity measured 20/30 minus right eye and 20/100 left eye. Confrontational visual field, motility and pupil testing were within normal limits. Slit lamp examination showed clear corneas with deep and quiet chambers. There were moderately dense nuclear sclerotic cataracts in both eyes, but more prominent on the left with subcapsular changes as well. The fundus exam was within normal limits, and I saw no evidenceof diabetic retinopathy. Bella has significant cataracts, more symptomatic in the left than the right eye. At this time, she would like to proceed with cataract surgery on the left eye only, but I think not RE: Bella Jones. May 04, 2012 [address], she will appreciate clear vision in her left eye and will want to have cataract surgery in her right eye as well. Surgery can be set up some time in the near future in [place]. The patient and her family would appreciate if you would assist in the postoperative management. Thanks again for the consultation. Sincerely, Edson Manuel M.D. Department of Ophthalmology [facility] Source: MARLA [id number] Document Id: [id number] documented in this encounter Plan of Treatment Not on filedocumented as of this encounter Visit Diagnoses Not on filedocumented in this encounter
--- OUTSIDE RECORDS SUMMARY | 2022-04-03 11:08 | XMS_ITS | Encounter Summary ---
:1955 Author Organization [facility] Address [address] [place] [address] Care Team Providers Name Role Phone Elsewhere, Pcp Primary Care Provider Unavailable Reason for Referral Outpatient (Routine) - Closed Specialty Diagnoses / Procedures Referred By Contact Refer red To Contact Orthopedic Surgery Jenn Roa P.A. -C. [address] [phone] Referral ID Status Reason Start Date Expiration Date Visits Requ ested Visits Authorized [id number] Closed 05/20/2021 05/20/2022 1 1 L TANK ERECTOR Outpatient (Routine) - Closed Specialty Diagnoses / Procedures Referred By Contact Refer red To Contact Anesthesiology Diagnoses Fracture Wrist Closed Initial Right Jenn Roa P.A.-C. [address] [phone] Referral ID Status Reason Start Date Expiration Date Visits Requ ested Visits Authorized [id number] Closed 05/20/2021 05/20/2022 1 1 L TANK ERECTOR Reason for Visit Appointment Request (Routine) - Closed Specialty Diagnoses / Procedures Referred By Contact Refer red To Contact Orthopedic Surgery Referral ID Status Reason Start Date Expiration Date Visits Requ ested Visits Authorized [id number] Closed 05/19/2021 05/19/2022 1 1 Encounter Details Date Type Department Care Team Description 05/20/2021 Comprehensive Visit Department of Jenn Roa, Maryjane cota Wrist Orthopedic Surgery Susan. Closed Initial Right in [place], [address] [place] John Veliz, PATRICIA [address] [place] [address] PATRICIA SUN [phone] (Work) [phone] Social History Tobacco Use Types Packs/Day Years Used Date Smoking Tobacco: Every Day Smokeless Tobacco: Never Alcohol Use Standard Drinks/Week Comments Yes 0 (1 standard drink = 0.6 oz pure alcoho l) Sex Assigned at Date Recorded Not on file documented as of this encounter Progress Notes Jenn Roa, Susan. - 05/20/2021 8:30 AM CST CHIEF COMPLAINT/REASON FOR VISIT Follow up wrist injury. HISTORY OF PRESENT ILLNESS Ms. Jones is a 65-year-old right-hand dominant female who presents to clinic today from an injurythat happened about a week ago. She tripped and fell landing on her right wrist. She is right-hand dominant. She had pain and discomfort, was seen in the emergency room and told she had a wrist fracture. She was placed into a splint and told to follow up with orthopedics. She is here today for recheck. Denies numbness, tingling, fevers, chills. Tolerating the splint well. Pain is at baseline, not worsening. OBJECTIVE PHYSICAL EXAMINATION General: Alert, oriented x3. No distress. Skin: Skin is intact. Sensation to light touch intact to the distal tips of the fingers. Limited exam today due to splint remaining in place. She has some swelling which is to be expected about the fingers. ASSESSMENT / PLAN #1 Distal radius fracture, right wrist, comminuted, with some displacement and shortening PLAN: At her appointment today, we did discuss we did discuss proceeding with surgical intervention.She understands the risks and benefits of this, other treatment options, and ultimately would like to proceed with surgical intervention. All of her questions and concerns were answered today. She is en couraged to call with any. She understands the risks and benefits of surgery including, but not limited to bleeding, infection, damage to nerves or arteries, continued symptoms in the future, postoperative stiffness. L TANK ERECTOR documented in this encounter Plan of Treatment Scheduled Referrals Name Type Priority Associated Order Schedule Diagnoses Pre Operative Outpatient Referral Routine Fracture Wrist Expec flavio: Evaluation YESSICA nurse Closed Initial 05/20 consult (clinic) Right (Approximat e), Expires: 05/20/2024 Orthopedic Surgery Outpatient Referral Routine Ex pected: office visit 06/09/2021 (clinic) (Approximate), Expires: 05/20/2024 documented as of this encounter Results SARS Coronavirus-2 RNA, V Asymptomatic (05/23/2021 12:55 PM METAL TANK ERECTOR) [facility] Method Time Signature SARS-CoV-2 Swab, 05/24/2021 ECLR Specimen Nasopharynx 1:29 PM METAL TANK ERECTOR Source SARS CoV-2 Undetected Undetected 05/24/2021 ECLR RNA, TMA 1:29 PM METAL TANK ERECTOR Comment: SARS-CoV-2 RNA absent. This result does not rule out COVID-19 in the patient, as the sensitivity of the test depends o n the timing of the specimen collection and the quality of the specim en. Result should be correlated with patient's history and clinical presentat ion. ----ADDITIONAL INFORMATION---- This molecular amplification test was pe rformed using the Aptima SARS-CoV-2 assay ([employer] on the itravels tem under emergency use authorization (EUA) by the U.S. Food and Drug Administ ration. Fact sheets for this EUA assay can be fo und at the following links: For Healthcare Providers: https://www.fd a.gov/media/703380/download For Patients: https://www.fda.gov/media/ 624467/download Specimen Anatomical Collection Method Collection Time Receive d Time (Source) Location / / Volume Laterality Varies 05/23/2021 12:55 05/23/2021 9:32 (Nasopharynx) PM METAL TANK ERECTOR PM METAL TANK ERECTOR Jenn Roa P.A.-C. LAB MICROBIOLOGY - GENERAL O RDERABLES Performing Organization Address City/State/ZIP Code Phon e Number [facility]- [address] [place] [phone] [facility] [place] [place] [address] System in [place] [address] [facility] DX Wrist Right 3+ Views (05/20/2021 8:22 AM METAL TANK ERECTOR) Anatomical Region Laterality Modality Upper Extremity, Wrist, Musculoskeletal RST LOS, Right Digital Radiography Musculoskeletal ARZ LOS, Muskuloskeletal FLA LOS Specimen (Source) Anatomical Collection Method Collection Time Re ceived Time Location / / Volume Laterality 05/20/2021 10:41 AM METAL TANK ERECTOR Impressions 05/20/2021 10:42 AM METAL TANK ERECTOR Unchanged alignment of the comminuted distal radial metaphyseal fracture. Fracture lucencies persist. No change in alignment. Cast material obscures some detail. Comparison with . Narrative 05/20/2021 10:42 AM METAL TANK ERECTOR EXAM: DX WRIST RIGHT 3+ VIEWS Procedure Note Yane Gifford M.D. - 05/20/2021Form atting of this note might be different from the original. EXAM: DX WRIST RIGHT 3+ VIEWS IMPRESSION: Unchanged alignment of the comminuted di stal radial metaphyseal fracture. Fracture lucencies persist. No change in alignment. Cast material obscures some detail. Comparison with . Jenn [facility]ON [facility] [place] documented in this encounter Visit Diagnoses Diagnosis Fracture Wrist Closed Initial Right Fracture Wrist Closed Initial Right documented in this encounter Care Teams Inspector Machine Parts Relationship Specialty Start Date End Date Elsewhere, Pcp PCP - General Family Medicine 03/11/21 documented as of this encounter
--- OUTSIDE RECORDS SUMMARY | 2022-04-03 11:08 | XMS_ITS | Encounter Summary ---
:1955 Author Organization [facility] Address [address] [place] [address] Care Team Providers Name Role Phone Elsewhere, Pcp Primary Care Provider Unavailable Encounter Details Date Type Department Care Team Description 05/21/2021 Hospital Encounter Department of Noman, Fracture Radius Laboratory Medicine Sorin Leonardo . Colles Closed in [place], [address] [place] [address] Bl Initial Right [address] [address] [place], [place] [phone] (Work) [phone] Social History Tobacco Use Types Packs/Day Years [...] Name Priority Date/Time Associated Diagnosis Comme nts BASIC METABOLIC Routine 05/21/2021 12:54 PM Fracture Radius Re sults for this PANEL, S/P CD MANUFACTURING SUPERVISOR Colles Closed procedure are in Initial Right the results section. documented in this encounter Results Basic Metabolic Panel (05/21/2021 12:54 PM CD MANUFACTURING SUPERVISOR) P athologist Signature Potassium, P 3.9 3.6 - 5.2 05/21/2021 CNFL mmol/L 1:14 PM CD MANUFACTURING SUPERVISOR Sodium, P 135 135 - 145 05/21/2021 CNFL mmol/L 1:14 PM CD MANUFACTURING SUPERVISOR Chloride, P 99 98 - 107 05/21/2021 CNFL mmol/L 1:14 PM CD MANUFACTURING SUPERVISOR Bicarbonate, P 25 22 - 29 05/21/2021 CNFL mmol/L 1:14 PM CD MANUFACTURING SUPERVISOR Anion Gap, P 11 7 - 15 05/21/2021 [facility] 1:14 PM CD MANUFACTURING SUPERVISOR BUN (Blood Urea 13 6 - 21 05/21/2021 CNFL Nitrogen), P mg/dL 1:14 PM CD MANUFACTURING SUPERVISOR Creatinine 0.84 0.59 - 05/21/2021 CNFL 1.04 mg/dL 1:14 PM CD MANUFACTURING SUPERVISOR eGFR-Black/Afric 85 >=60 05/21/2021 CNFL an Citizen Of [place] mL/min/BSA 1:14 PM CD MANUFACTURING SUPERVISOR Comment: ----ADDITIONAL INFORMATION---- Estimated GFR calculated using the 2009 CKD_EPI creatinine equation. eGFR Non-Black/ 74 >=60 mL/min/BSA 1:14 PM CD MANUFACTURING SUPERVISOR CNFL Comment: ----ADDITIONAL INFORMATION---- Estimated GFR calculated using the 2009 CKD_EPI creatinine equation. Calcium, Total, P 9.2 8.8 - 10.2 mg/dL 05/21/2021 1:14 PM CD MANUFACTURING SUPERVISOR CNFL Glucose, P 77 70 - 140 mg/dL 05/21/2021 1:14 PM CD MANUFACTURING SUPERVISOR C NFL Specimen Anatomical Collection Method Collection Time Receive d Time (Source) Location / / Volume Laterality Blood (Blood, 05/21/2021 12:54 05/21/2021 Venous) PM CD MANUFACTURING SUPERVISOR 12:56 PM CD MANUFACTURING SUPERVISOR Jorden Tineo M.D. LAB BLOOD ADD-ON Performing Organization Address City/State/ZIP Code Phon e Number [facility]- [address] [place] [phone] [place] [address] [address] documented in this encounter Visit Diagnoses Diagnosis Fracture Radius Colles Closed Initial Ri ght documented in this encounter Care Teams Insurance Analyst Relationship Specialty Start Date End Date Elsewhere, Pcp PCP - General Family Medicine 03/11/21 documented as of this encounter
--- OUTSIDE RECORDS SUMMARY | 2022-04-03 11:08 | XMS_ITS | Encounter Summary ---
:1955 Author Organization [facility] Address [address] [place] [address] Care Team Providers Name Role Phone Unavailable Primary Care Provider Unavailable Encounter Details Date Type Department Care Team Description 06/01/2012 Hospital Encounter HX NO MAPPING Provider, Historical [...]
--- OUTSIDE RECORDS SUMMARY | 2022-04-03 11:08 | XMS_ITS | Encounter Summary ---
:1955 Author Organization [facility] Address [address] [place] [address] Care Team Providers Name Role Phone Elsewhere, Pcp Primary Care Provider Unavailable Reason for Referral Outpatient (Routine) - Closed Specialty Diagnoses / Procedures Referred By Contact Refer red To Contact Emergency Medicine Diagnoses Fracture Wrist Closed Initial Right El Lockwood [facility] [address] [place] [address] Referral ID Status Reason Start Date Expiration Date Visits Requ ested Visits Authorized [id number] Closed 05/14/2021 05/14/2022 1 1 L ASSISTANT Reason for Visit Reason Comments Wrist Injury tripped fell on right wrist 1545 Encounter Details Date Type Department Care Team Description 05/14/2021 Emergency [facility] Elsie Lockwood Fracture Wrist Closed Department Yenni John Initial Right (Primary [address] [place] [address] D[address]) [place] [phone] (Wo rk) Social History Tobacco Use Types Packs/Day Years Used Date Smoking Tobacco: Every Day Smokeless Tobacco: Never Alcohol Use Standard Drinks/Week Comments Yes 0 (1 standard drink = 0.6 oz pure alcoho l) Sex Assigned at Date Recorded Not on file documented as of this encounter Last Filed Vital Signs Vital Sign Reading Time Taken Comments Blood Pressure 120/58 05/14/2021 7:00 PM LEGAL ASSISTANT Pulse 65 05/14/2021 7:00 PM LEGAL ASSISTANT Temperature 36.4 ??C (97.5 ??F) 05/14/2021 6:53 PM LEGAL ASSISTANT Respiratory Rate 18 05/14/2021 6:53 PM LEGAL ASSISTANT Oxygen Saturation 98% 05/14/2021 7:00 PM LEGAL ASSISTANT Inhaled Oxygen Concentration - - Weight 47 kg (103 lb 9.9 oz) 05/14/2021 4:46 PM LEGAL ASSISTANT Height 157.5 cm (5' 2) 05/14/2021 4:46 PM LEGAL ASSISTANT Body Mass Index 18.95 05/14/2021 4:46 PM LEGAL ASSISTANT documented in this encounter Discharge Instructions Discharge InstructionsEl Lockwood P.A.-C., M.S. - 05/14/2021 7:23 PM CST Follow up with orthopedics, you will be contacted in the next 1-2 business days to schedule a followup appointment. Return to the emergency department in the event of new or worsening symptoms. Thank you for allowing me to participate in your care. You can take Tylenol 1000 mg 3 times per day as needed for pain. Take oxycodone for breakthrough pain only. L ASSISTANT documented in this encounter Medications at Time [...] mg tablet documented as of this encounter Procedure Notes El Lockwood P.A.-C., M.S. - 05/14/2021 6:55 PM CSTAssociated Order(s): Splint Application Procedure Splint Application Date/Time: 05/14/2021 6:55 PM Performed by: El Lockwood P.A.-C., M.S. Authorized by: El Lockwood P.A.-C., M.S. Care team members present 1. El Lockwood P.A.-C. M.S. 2. Tato Bradshaw R.N. PROCEDURE DETAILS Immobilization: Splint Splint type: Sugar tong Supplies used: Ortho-Glass, skin protective strip, elastic bandage and cotton padding CONSENT Consent obtained: verbal Consent given by: patient PRE PROCEDURE DETAILS Procedure type: application Performed by: PA Indication: fracture and dislocation Location: Wrist Wrist: Right wrist Circulation distal to injury: capillary refill < 2 sec Movement distal to injury: unable to assess Sensation distal to injury: normal SEDATION / ANESTHESIA Anesthesia method: local infiltration Local infiltrate type: lidocaine POST PROCEDURE DETAILS Procedure completed successfully: yes Pain: Improved Circulation distal to injury: capillary refill < 2 sec Movement distal to injury: unable to assess Sensation distal to injury: normal Tetanus is up to date: Unknown Complications: no immediate complications El Lockwood P.A.-C., M.S. 05/14/21 1857 L ASSISTANT documented in this encounter ED Notes Tato Bradshaw R.N. - 05/14/2021 5:14 PM CST 65 year old presents to the ED via private vehicle with right wrist pain. Patient states she was getting a pedicure and was walking and forgot about a step and fell onto right wrist, patient also reports right low back pain. Patient reports that injury occurred at 1545. aTto Bradshaw R.N. 05/14/21 1716 L ASSISTANT El Lockwood P.A.-C., M.S. - 05/14/2021 5:03 PM CST SUBJECTIVE CHIEF COMPLAINT/REASON FOR VISIT Wrist Injury (tripped fell on right wrist 1545) HISTORY OF PRESENT ILLNESS Bella Jones is a 65 y.o. female with PMH of hypertension, insulin- dependent diabetes mellitus type 2 who presents to the emergency department for right wrist injury. Patient reports she over a step falling forward injuring her right wrist at approximately 1545. She denies head injury, loss of con sciousness, lightheadedness, dizziness, and was ambulatory after the incident. She also reports right lower posterior rib pain, denies landing on her back, or prior back pain. She has not taken anything for symptoms prior to ED arrival. She is not anticoagulated. History provided by: Patient and medical records Wrist Injury Location: Wrist Wrist location: R wrist Injury: yes Time since incident: 1 hour Pain details: Quality: Aching Radiates to: Does not radiate Severity: Moderate Onset quality: Sudden Duration: 1 hour Timing: Constant Progression: Unchanged Handedness: Right-handed Foreign body present: Unable to specify Tetanus status: Unknown Prior injury to area: No Relieved by: Nothing Worsened by: Nothing Ineffective treatments: None tried Associated symptoms: back pain (Right lower posterior ribs) and swelling Associated symptoms: no fever, no muscle weakness, no neck pain, no numbness and no stiffness Risk factors: no concern for non-accidental trauma and no frequent fractures REVIEW OF SYSTEMS Constitutional: Negative for diaphoresis and fever. HENT: Negative for ear pain and sore throat. Eyes: Negative for anthony-orbital edema and discharge. Respiratory: Negative for cough and shortness of breath. Cardiovascular: Negative for chest pain and palpitations. Gastrointestinal: Negative for abdominal distention, abdominal pain, blood in stool and hematemesis. Endocrine: Negative for polyuria. Genitourinary: Negative for dysuria and hematuria. Musculoskeletal: Positive for back pain (Right lower posterior ribs). Negative for joint swelling, neck pain, stiffness and extremity pain. Skin: Negative for color change and rash. Allergic/Immunologic: Negative for immunocompromised state. Neurological: Negative for seizures and syncope. Hematological: Negative for adenopathy. Psychiatric/Behavioral: Negative for agitation. OBJECTIVE Initial Vitals Temperature Pulse Rate Heart Rate Resp Rate Blood Pressure SpO2 05/14/21 1650 05/14/21 1650 -- 05/14/21 1650 05/14/21 1650 05/14/21 1650 36 ??C 67 20 152/72 100 % Pain Score 05/14/21 1646 10 - Worst possible pain PHYSICAL EXAMINATION Constitutional: Nursing note and vitals reviewed. She appears not cachectic. No distress. HENT: Head: Normocephalic. Nose: No nasal discharge. Mouth/Throat: Mucous membranes are moist. Eyes: EOM are normal. Pupils are equal, round, and reactive to light. Right eye exhibits no discharge. Left eye exhibits no discharge. Cardiovascular: Pulses are strong and palpable. Edema: no edema noted Pulmonary/Chest: Effort normal. No respiratory distress. She exhibits no retraction. Abdominal: exhibits no distension. There is no guarding. Musculoskeletal: General: No deformity or edema. Cervical back: Normal range of motion. Comments: Tenderness to palpation and edema noted the base of the right wrist, distal pulse, motor,sensory intact No appreciable midline cervical, thoracic, lumbar spine tenderness Right lower posterior rib tenderness to palpation, no evidence of external trauma. Pelvis stable to palpation and rocking Neurological: Alert and oriented to person, place, and time. She is not disoriented. Skin: No rash noted. She is not diaphoretic. No cyanosis. Psychiatric: She has a normal mood and affect. Behavior is normal. ASSESSMENT/PLAN Differential Diagnoses include, but are not limited to: Initial right wrist injury, sprain/strain, fracture, dislocation, contusion Upon presentation patient is under no acute distress, appears non-toxic, and is A+O x 4. VS are stable on room air. Initial workup will include: CT head and C-spine without IV contrast, CT chest and abdomen pelvis without IV contrast, right plain film wrist The physical exam, history of present illness and Imaging are not suggestive of sprain/strain, but more favorable to initial right closed wrist fracture. Patient's physical exam was notable for tenderness to palpation and edema the base of the right wrist suspicious for fracture, distal pulse, motor, sensory intact. She had no reported loss of consciousness, head injury, or complaint of lower extremity injuries. She had no appreciable midline spine tenderness. Plain film imaging of the right wrist noted impacted comminuted fracture of the distal radius and a avulsion fracture of the ulnar styloid. CT head and C-spine without IV contrast were negative for acute pathology, incidental findings were di scussed with the patient. CT chest and abdomen pelvis without IV contrast were negative for acute pathology. Orthopedics was consulted and case discussed with Dr. Tineo who recommended reduction, sugar-tong, orthopedic follow-up in 5-7 days. She was treated in the emergency department with p.o. oxycodone, lidocaine patch, local lidocaine injection/ hematoma block right wrist. The right wrist was reduced with distal manual traction and a sugar-tong splint was placed, positive pulse, motor, sensory post splint placement. Post reduction imaging ED wet read notable for improved alignment acceptable reduction. I do not see a clear clinical indication to pursue additional workup at this time. My impres yann is supported by the pertinent positive & negative workup findings noted in the ED course. My clinical gestalt for immediate life-threatening pathology is low. I feel the patient is safe for discharge home with outpatient follow-up. The patient will be discharged with instructions for OTC meds, Rx of oxycodone for breakthrough pain only, ED post visit follow-up for orthopedics, right shouldersling, return precautions communicated.. ED Tx course: P.o. oxycodone, lidocaine patch, lidocaine infiltrate, reduction/splint placement At time of discharge patient is under no acute distress, appears non-toxic, and is A+O x 4. VS are stable. PLAN: Fracture wrist closed initial right 1. Plain film imaging right wrist, reduction/splint placement 2. OTC meds, oxycodone for breakthrough pain 3. Orthopedics follow-up, ED order placed Patient advised to f/u in ED if pt develops any new/worsening sx. Patient is agreeable. I reviewed previous medical records including documentation from previous visits. I personally reviewed the radiology image(s) and reviewed the radiology report(s). The Radiology exam interpretation(s) is/are documented in ED Course. Case reviewed with other health resident care aid, including Orthopedics; and Case discussed with orthopedics Dr. Tineo. ED Course as of 05/14/211925May 14, 20211800 CT Head without IV Contrast IMPRESSION: vrads Mild atrophy and probable microvascular ischemic changes with no evidence of acute infarct, recent hemorrhage or hydrocephalus. No acute intracranial process is detected. 1801 CT Cervical Spine without IV Contrast IMPRESSION: Vrads Cervical spondylosis with central canal and foraminal narrowing as above. No acute cervical fractures are detected. 1803 CT Chest without IV Contrast IMPRESSION: Vrads 1. No acute abnormality. 2. Ypro-fc-sippcdcp emphysematous changes at the lung apices. 3. Extensive coronary artery calcifications. 1843 DX Wrist Right 3+ Views IMPRESSION: Vrads 1. Impacted, comminuted fracture of the distal radius, fracture involves the radiocarpal joint space. There is dorsal angulation of the distal fragments. 2. Avulsion fracture of the ulnar styloid. [address] Tineo orthopedic: He recommended reduction, sugar-tong splint, Orthopedic follow-up in 5-[address] Abdomen Pelvis without IV Contrast Vrads No acute finding Final Diagnoses: as of 05/14/211925 Fracture Wrist Closed Initial Right El Lockwood P.A.-C., M.S. 05/14/211925 L ASSISTANT documented in this encounter Plan of Treatment Scheduled Referrals Name Type Priority Associated Order Schedule Diagnoses POST ED VISIT Outpatient Referral Routine Fracture Wrist Expec flavio: Orthopedic Surgery Closed Initial 021 Right (Approximate), Expires: 05/14/2024 documented as of this encounter Procedures Procedure Name Priority Date/Time Associated Comments Diagnosis DX WRIST RIGHT 3+ RAD - Semiurgent 05/14/2021 7:09 Res ults for this VIEWS (Fast; most ED PM LEGAL ASSISTANT procedure are in patients; some the results inpatients) section. SPLINT APPLICATION Routine 05/14/2021 6:55 Result s for this PM LEGAL ASSISTANT procedure are i n the results section. CT CHEST WITHOUT IV RAD - Semiurgent 05/14/2021 6:14 R esults for this CONTRAST (Fast; most ED PM LEGAL ASSISTANT procedure are in patients; some the results inpatients) section. CT ABDOMEN PELVIS RAD - Semiurgent 05/14/2021 6:14 Res ults for this WITHOUT IV CONTRAST (Fast; most ED PM LEGAL ASSISTANT proced ure are in patients; some the results inpatients) section. DX WRIST RIGHT 3+ RAD - Semiurgent 05/14/2021 6:10 Res ults for this VIEWS (Fast; most ED PM LEGAL ASSISTANT procedure are in patients; some the results inpatients) section. CT CERVICAL SPINE RAD - Semiurgent 05/14/2021 6:03 Res ults for this WITHOUT IV CONTRAST (Fast; most ED PM LEGAL ASSISTANT proced ure are in patients; some the results inpatients) section. CT HEAD WITHOUT IV RAD - Emergent 05/14/2021 6:03 Resu lts for this CONTRAST (Fastest; for the PM LEGAL ASSISTANT procedure are in most critically the results ill patients) section. documented in this encounter Results DX Wrist Right 3+ Views (05/14/2021 7:09 PM LEGAL ASSISTANT) Anatomical Region Laterality Modality Upper Extremity, Wrist, Musculoskeletal RST LOS, Right Digital Radiography Musculoskeletal ARZ LOS, Muskuloskeletal FLA LOS Specimen (Source) Anatomical Collection Method Collection Time Re ceived Time Location / / Volume Laterality 05/14/2021 8:27 PM LEGAL ASSISTANT Impressions 05/14/2021 8:29 PM LEGAL ASSISTANT Interval reduction and cast immobilization of previously noted distal radial metaphysis fracture. There is improved alignment. Unchanged acute displaced ulnar styloid fracture. Narrative 05/14/2021 8:29 PM LEGAL ASSISTANT EXAM: DX WRIST RIGHT 3+ VIEWS Procedure Note Panchito Chin M.B., Pretty Da Silva - 06/2021 EXAM: DX WRIST RIGHT 3+ VIEWS IMPRESSION: Interval reduction and cast immobilizati on of previously noted distal radial metaphysis fracture. There is improved alignment. Unchanged acute displaced ulnar styloid fracture. El Lockwood P.A.-C. IMG DIAGNOSTIC IMAGING NM OCEDURES Splint Application (05/14/2021 6:55 PM LEGAL ASSISTANT) Narrative El Lockwood P.A.-C., M.S. - 1 07/14/2020 6:55 PM LEGAL ASSISTANT El Lockwood P.A.-C., M.S. ? 05/14/2021 ??6:57 PM Splint Application Date/Time: 05/14/2021 6:55 PM Performed by: El Lockwood P.A .-C., M.S. Authorized by: El Lockwood P. A.-C., M.S. Care team members present 1. El Lockwood P.A.-C., M.S. 2. Tato Bradshaw R.N. PROCEDURE DETAILS Immobilization: ??Splint Splint type: ??Sugar tong Supplies used: ??Ortho-Glass, skin prote ctive strip, elastic bandage and cotton padding CONSENT Consent obtained: verbal Consent given by: patient PRE PROCEDURE DETAILS Procedure type: application ?? Performed by: ??PA Indication: fracture and dislocation ?? Location: ??Wrist Wrist: ??Right wrist Circulation distal to injury: capillary refill < 2 sec ?? Movement distal to injury: unable to ass ess ?? Sensation distal to injury: normal ?? SEDATION / ANESTHESIA Anesthesia method: local infiltration Local infiltrate type: lidocaine POST PROCEDURE DETAILS Procedure completed successfully: yes ?? Pain: ??Improved Circulation distal to injury: capillary refill < 2 sec ?? Movement distal to injury: unable to ass ess ?? Sensation distal to injury: normal ?? Tetanus is up to date: ??Unknown Complications: no immediate complication s ?? El Lockwood P.A.-C. PROCEDURE/MINOR SURGICAL ORDERABLES CT Abdomen Pelvis without IV Contrast (05/14/2021 6:14 PM LEGAL ASSISTANT) Anatomical Region Laterality Modality Abdomen, Pelvis, Abdominal RST LOS, Abdominal ARZ LOS, N/A Computed Tomography Abdominal FLA LOS Specimen (Source) Anatomical Collection Method Collection Time Re ceived Time Location / / Volume Laterality 05/15/2021 6:14 AM LEGAL ASSISTANT Impressions 05/15/2021 6:38 AM LEGAL ASSISTANT Chest: -No acute traumatic chest injury. -Other chronic findings as described. Abdomen and pelvis: -No acute traumatic abdominal or pelvic injury. -Other chronic findings as described. Narrative 05/15/2021 6:38 AM LEGAL ASSISTANT EXAM: CT CHEST WITHOUT IV CONTRAST, CT ABDOMEN PELVIS WITHOUT IV CONTRAST 3D/MIPS: 3D Post-Processing performed on a dependent workstation. COMPARISON: None. FINDINGS: Chest: Patent airways. Mild upper lobe predomin ant emphysema. No pleural effusion. Small low-attenuation lesion in the righ t thyroid lobe. Probably reactive subcentimeter axillary and mediastinal l ymph nodes. No cardiomegaly. Thoracic aorta and coronary artery atheroscleroti c calcification. Small sclerotic density in the T5 vertebral body. Mild diffuse o sseous demineralization. Mild chronic degenerative changes in the spine. No ac campo osseous abnormality. vRad: ??Minor revision of the preliminar y vRad report. Abdomen And Pelvis: No free fluid or free air. Postcholecyst ectomy clips in the gallbladder fossa. Liver, spleen, pancreas, bilateral adren al glands and kidneys are unremarkable. No hydronephrosis. Partial urinary bladd er distention without asymmetric wall thickening. Small hiatal hernia. Extensi ve atherosclerotic calcification of the infrarenal abdominal aorta and bilateral iliac arteries. Lower anterior abdominal wall focal subcutaneous dense calcification, probably dystrophic calcification. Diffuse osseous demineral ization. Mild degenerative changes in the lumbar spine. No acute osseous abnor mality. vRad: ??Minor revision of the preliminar y vRad report. Procedure Note Panchito Chin M.B., Pretty Da Silva - EXAM: CT CHEST WITHOUT IV CONTRAST, CT A BDOMEN PELVIS WITHOUT IV CONTRAST 3D/MIPS: 3D Post-Processing performed on a dependent workstation. COMPARISON: None. FINDINGS: Chest: Patent airways. Mild upper lobe predomin ant emphysema. No pleural effusion. Small low-attenuation lesion in the righ t thyroid lobe. Probably reactive subcentimeter axillary and mediastinal l ymph nodes. No cardiomegaly. Thoracic aorta and coronary artery atheroscleroti c calcification. Small sclerotic density in the T5 vertebral body. Mild diffuse o sseous demineralization. Mild chronic degenerative changes in the spine. No ac campo osseous abnormality. vRad: Minor revision of the preliminary vRad report. Abdomen And Pelvis: No free fluid or free air. Postcholecyst ectomy clips in the gallbladder fossa. Liver, spleen, pancreas, bilateral adren al glands and kidneys are unremarkable. No hydronephrosis. Partial urinary bladd er distention without asymmetric wall thickening. Small hiatal hernia. Extensi ve atherosclerotic calcification of the infrarenal abdominal aorta and bilateral iliac arteries. Lower anterior abdominal wall focal subcutaneous dense calcification, probably dystrophic calcification. Diffuse osseous demineral ization. Mild degenerative changes in the lumbar spine. No acute osseous abnor mality. vRad: Minor revision of the preliminary vRad report. IMPRESSION: Chest: -No acute traumatic chest injury. -Other chronic findings as described. Abdomen and pelvis: -No acute traumatic abdominal or pelvic injury. -Other chronic findings as described. El Lockwood P.A.-C. IMG CT PROCEDURES CT Chest without IV Contrast (05/14/2021 6:14 PM LEGAL ASSISTANT) Anatomical Region Laterality Modality Chest, Thoracic RST LOS, Thoracic ARZ LOS, Thoracic N/A Computed Tomography FLA LOS Specimen (Source) Anatomical Collection Method Collection Time Re ceived Time Location / / Volume Laterality 05/15/2021 6:14 AM LEGAL ASSISTANT Impressions 05/15/2021 6:38 AM LEGAL ASSISTANT Chest: -No acute traumatic chest injury. -Other chronic findings as described. Abdomen and pelvis: -No acute traumatic abdominal or pelvic injury. -Other chronic findings as described. Narrative 05/15/2021 6:38 AM LEGAL ASSISTANT EXAM: CT CHEST WITHOUT IV CONTRAST, CT ABDOMEN PELVIS WITHOUT IV CONTRAST 3D/MIPS: 3D Post-Processing performed on a dependent workstation. COMPARISON: None. FINDINGS: Chest: Patent airways. Mild upper lobe predomin ant emphysema. No pleural effusion. Small low-attenuation lesion in the righ t thyroid lobe. Probably reactive subcentimeter axillary and mediastinal l ymph nodes. No cardiomegaly. Thoracic aorta and coronary artery atheroscleroti c calcification. Small sclerotic density in the T5 vertebral body. Mild diffuse o sseous demineralization. Mild chronic degenerative changes in the spine. No ac campo osseous abnormality. vRad: ??Minor revision of the preliminar y vRad report. Abdomen And Pelvis: No free fluid or free air. Postcholecyst ectomy clips in the gallbladder fossa. Liver, spleen, pancreas, bilateral adren al glands and kidneys are unremarkable. No hydronephrosis. Partial urinary bladd er distention without asymmetric wall thickening. Small hiatal hernia. Extensi ve atherosclerotic calcification of the infrarenal abdominal aorta and bilateral iliac arteries. Lower anterior abdominal wall focal subcutaneous dense calcification, probably dystrophic calcification. Diffuse osseous demineral ization. Mild degenerative changes in the lumbar spine. No acute osseous abnor mality. vRad: ??Minor revision of the preliminar y vRad report. Procedure Note Panchito Chin M.B., Rekha MPeter - EXAM: CT CHEST WITHOUT IV CONTRAST, CT A BDOMEN PELVIS WITHOUT IV CONTRAST 3D/MIPS: 3D Post-Processing performed on a dependent workstation. COMPARISON: None. FINDINGS: Chest: Patent airways. Mild upper lobe predomin ant emphysema. No pleural effusion. Small low-attenuation lesion in the righ t thyroid lobe. Probably reactive subcentimeter axillary and mediastinal l ymph nodes. No cardiomegaly. Thoracic aorta and coronary artery atheroscleroti c calcification. Small sclerotic density in the T5 vertebral body. Mild diffuse o sseous demineralization. Mild chronic degenerative changes in the spine. No ac campo osseous abnormality. vRad: Minor revision of the preliminary vRad report. Abdomen And Pelvis: No free fluid or free air. Postcholecyst ectomy clips in the gallbladder fossa. Liver, spleen, pancreas, bilateral adren al glands and kidneys are unremarkable. No hydronephrosis. Partial urinary bladd er distention without asymmetric wall thickening. Small hiatal hernia. Extensi ve atherosclerotic calcification of the infrarenal abdominal aorta and bilateral iliac arteries. Lower anterior abdominal wall focal subcutaneous dense calcification, probably dystrophic calcification. Diffuse osseous demineral ization. Mild degenerative changes in the lumbar spine. No acute osseous abnor mality. vRad: Minor revision of the preliminary vRad report. IMPRESSION: Chest: -No acute traumatic chest injury. -Other chronic findings as described. Abdomen and pelvis: -No acute traumatic abdominal or pelvic injury. -Other chronic findings as described. El Lockwood P.A.-C. IMG CT PROCEDURES DX Wrist Right 3+ Views (05/14/2021 6:10 PM LEGAL ASSISTANT) Anatomical Region Laterality Modality Upper Extremity, Wrist, Musculoskeletal RST LOS, Right Digital Radiography Musculoskeletal ARZ LOS, Muskuloskeletal FLA LOS Specimen (Source) Anatomical Collection Method Collection Time Re ceived Time Location / / Volume Laterality 05/14/2021 7:46 PM LEGAL ASSISTANT Impressions 05/14/2021 7:50 PM LEGAL ASSISTANT Acute impacted distal radial metaphysis fracture with dorsal angulation of distal fracture fragment a nd radiocarpal articular extension of the fracture plane. Acute displaced ulna r styloid process fracture. Diffuse osseous demineralization. Marked soft ti ssue swelling of the wrist. vRad: ??Minor revision of the preliminary vRad report. Narrative 05/14/2021 7:50 PM LEGAL ASSISTANT EXAM: DX WRIST RIGHT 3+ VIEWS Procedure Note Panchito Chin M.B., Rekha MPetre - 06/2021 EXAM: DX WRIST RIGHT 3+ VIEWS IMPRESSION: Acute impacted distal radial metaphysis fracture with dorsal angulation of distal fracture fragment a nd radiocarpal articular extension of the fracture plane. Acute displaced ulna r styloid process fracture. Diffuse osseous demineralization. Marked soft ti ssue swelling of the wrist. vRad: Minor revision of the preliminary vRad report. El Lockwood P.A.-C. IMG DIAGNOSTIC IMAGING NM OCEDURES CT Cervical Spine without IV Contrast (05/14/2021 6:03 PM LEGAL ASSISTANT) Anatomical Region Laterality Modality Cervical Spine, Neuroradiology RST LOS, Neuroradiology N/A Computed Tomography ARZ LOS, Neuroradiology FLA [facility] Specimen (Source) Anatomical Collection Method Collection Time Re ceived Time Location / / Volume Laterality 05/14/2021 6:12 PM LEGAL ASSISTANT Impressions 05/14/2021 6:28 PM LEGAL ASSISTANT Head: -No acute intracranial hemorrhage or acu te calvarial fracture. -Other chronic findings as described. Cervical Spine: -No evidence of acute fracture or sublux ation. -Other chronic findings as described. Narrative 05/14/2021 6:28 PM LEGAL ASSISTANT EXAM: CT HEAD WITHOUT IV CONTRAST, CT CERVICAL SPINE WITHOUT IV CONTRAST COMPARISON: None FINDINGS: HEAD: No acute hemorrhage or extra-axial fluid collection. No midline shift. Presumed mild chronic small vessel ischemic disea se. Mild diffuse cerebral volume loss with c ommensurate dilation of the ventricles and peripheral subarachnoid spaces. The basal cisterns and foramen magnum are patent. Small retention cyst versus poly p in the left maxillary sinus. Intracranial arterial atherosclerotic ca lcification. No acute calvarial fracture. vRad: ??Findings concordant with prelimi nary vRad report. CERVICAL SPINE: Normal craniocervical alignment. Mild gr kyler 1 anterolisthesis at C4-C5 level. Multilevel facet joint degenerative ozuna ges and osteophyte formation. No acute fracture. Moderate to severe left neural foraminal narrowing at C4-C5 level. No severe spinal canal narrowing. No prever tebral soft tissue thickening or paraspinal hematoma. Mild emphysematous changes in the imaged portions of the lung apices. vRad: ??Minor revision of the preliminar y vRad report. Procedure Note Panchito Chin M.B., Rekha, MPeter - 06/2021 EXAM: CT HEAD WITHOUT IV CONTRAST, CT CE RVICAL SPINE WITHOUT IV CONTRAST COMPARISON: None FINDINGS: HEAD: No acute hemorrhage or extra-axial fluid collection. No midline shift. Presumed mild chronic small vessel ischemic disea se. Mild diffuse cerebral volume loss with c ommensurate dilation of the ventricles and peripheral subarachnoid spaces. The basal cisterns and foramen magnum are patent. Small retention cyst versus poly p in the left maxillary sinus. Intracranial arterial atherosclerotic ca lcification. No acute calvarial fracture. vRad: Findings concordant with prelimina ry vRad report. CERVICAL SPINE: Normal craniocervical alignment. Mild gr kyler 1 anterolisthesis at C4-C5 level. Multilevel facet joint degenerative ozuna ges and osteophyte formation. No acute fracture. Moderate to severe left neural foraminal narrowing at C4-C5 level. No severe spinal canal narrowing. No prever tebral soft tissue thickening or paraspinal hematoma. Mild emphysematous changes in the imaged portions of the lung apices. vRad: Minor revision of the preliminary vRad report. IMPRESSION: Head: -No acute intracranial hemorrhage or acu te calvarial fracture. -Other chronic findings as described. Cervical Spine: -No evidence of acute fracture or sublux ation. -Other chronic findings as described. El Lockwood P.A.-C. IMMariah CT PROCEDURES CT Head without IV Contrast (05/14/2021 6:03 PM LEGAL ASSISTANT) Anatomical Region Laterality Modality Head, Neuroradiology RST [facility], [facility], N[facility]A Computed [facility] Specimen (Source) Anatomical Collection Method Collection Time Re ceived Time Location / / Volume Laterality 05/14/2021 6:12 PM LEGAL ASSISTANT Impressions 05/14/2021 6:28 PM LEGAL ASSISTANT Head: -No acute intracranial hemorrhage or acu te calvarial fracture. -Other chronic findings as described. Cervical Spine: -No evidence of acute fracture or sublux ation. -Other chronic findings as described. Narrative 05/14/2021 6:28 PM LEGAL ASSISTANT EXAM: CT HEAD WITHOUT IV CONTRAST, CT CERVICAL SPINE WITHOUT IV CONTRAST COMPARISON: None FINDINGS: HEAD: No acute hemorrhage or extra-axial fluid collection. No midline shift. Presumed mild chronic small vessel ischemic disea se. Mild diffuse cerebral volume loss with c ommensurate dilation of the ventricles and peripheral subarachnoid spaces. The basal cisterns and foramen magnum are patent. Small retention cyst versus poly p in the left maxillary sinus. Intracranial arterial atherosclerotic ca lcification. No acute calvarial fracture. vRad: ??Findings concordant with prelimi nary vRad report. CERVICAL SPINE: Normal craniocervical alignment. Mild gr kyler 1 anterolisthesis at C4-C5 level. Multilevel facet joint degenerative ozuna ges and osteophyte formation. No acute fracture. Moderate to severe left neural foraminal narrowing at C4-C5 level. No severe spinal canal narrowing. No prever tebral soft tissue thickening or paraspinal hematoma. Mild emphysematous changes in the imaged portions of the lung apices. vRad: ??Minor revision of the preliminar y vRad report. Procedure Note Panchito Chin M.B., Pretty Da Silva - 06/2021 EXAM: CT HEAD WITHOUT IV CONTRAST, CT CE RVICAL SPINE WITHOUT IV CONTRAST COMPARISON: None FINDINGS: HEAD: No acute hemorrhage or extra-axial fluid collection. No midline shift. Presumed mild chronic small vessel ischemic disea se. Mild diffuse cerebral volume loss with c ommensurate dilation of the ventricles and peripheral subarachnoid spaces. The basal cisterns and foramen magnum are patent. Small retention cyst versus poly p in the left maxillary sinus. Intracranial arterial atherosclerotic ca lcification. No acute calvarial fracture. vRad: Findings concordant with prelimina ry vRad report. CERVICAL SPINE: Normal craniocervical alignment. Mild gr kyler 1 anterolisthesis at C4-C5 level. Multilevel facet joint degenerative ozuna ges and osteophyte formation. No acute fracture. Moderate to severe left neural foraminal narrowing at C4-C5 level. No severe spinal canal narrowing. No prever tebral soft tissue thickening or paraspinal hematoma. Mild emphysematous changes in the imaged portions of the lung apices. vRad: Minor revision of the preliminary vRad report. IMPRESSION: Head: -No acute intracranial hemorrhage or acu te calvarial fracture. -Other chronic findings as described. Cervical Spine: -No evidence of acute fracture or sublux ation. -Other chronic findings as described. El Lockwood P.A.-C. IMG CT PROCEDURES documented in this encounter Visit Diagnoses Diagnosis Fracture Wrist Closed Initial Right - Pr imary documented in this encounter Administered Medications Inactive Administered Medications - up to 3 most recent administrations Medication Order MAR Action Action Date Dose Rate Site lidocaine 10 mg/mL (1 %) injection Given 05/14/2021 6:07 PM LEGAL ASSISTANT 20 mL 20 mL (XYLOCAINE) 20 mL, injection, Once, On Mon05/14/21 at 1801, For 1 dose lidocaine 5 % 1 patch Medication Applied 05/14/2021 6:07 PM 1 patch Lower Back (LIDODERM) LEGAL ASSISTANT 1 patch, transdermal, Administer over 12 Hours, Once, On Mon05/14/21 at 1802, For 1 dose, Remove after 12 hours. oxyCODONE IR tablet 10 mg (ROXICODONE) Given 05/14/2021 6:07 PM LEGAL ASSISTANT 10 mg 10 mg, oral, Once, On Mon05/14/21 at 1802, For 1 dose oxyCODONE IR tablet 5 mg (ROXICODONE) Given 05/14/2021 4:59 PM LEGAL ASSISTANT 5 mg 5 mg, oral, Once, On Mon05/14/21 at 1658, For 1 dose documented in this encounter Active and Recently Administered Medications Times are shown in LEGAL ASSISTANT. Scheduled Medication Order 05/12/2021 05/13/2021 05/14/2021 lidocaine 10 mg/mL (1 %) injection 20 mL (XYLOCAINE) (COMPLETED) 1806 (Given - Provider: Tato Bradshaw R.N. - Comment: Administered by Joseline) 20 mL, injection, Once, On Mon05/14/21 at 1801, For 1 dose lidocaine 5 % 1 patch (LIDODERM) 1806 (Medication Applied - Provider: Tato Bradshaw R.N. - Comment: right)191 (Due: Medication Removed - Provider: Discharge Provider, Automatic - Comment: Time automatically adjusted from order being discontinued) 1 patch, transdermal, Administer over 12 Hours, Once, On Mon05/14/21 at 1802, For 1 dose, Remove after 12 hours. oxyCODONE IR tablet 10 mg (ROXICODONE) (COMPLETED) 1806 (Given - Provider: Tato Bradshaw R.N.) 10 mg, oral, Once, On Mon05/14/21 at 1802, For 1 dose oxyCODONE IR tablet 5 mg (ROXICODONE) (COMPLETED) 1659 (Given - Provider: Tato Bradshaw R.N.) 5 mg, oral, Once, On Mon05/14/21 at 1658, For 1 dose documented in this encounter Care Teams Medical Records Analyst Relationship Specialty Start Date End Date Elsewhere, Pcp PCP - General Family Medicine 03/11/21 documented as of this encounter
--- OUTSIDE RECORDS SUMMARY | 2022-04-03 11:08 | XMS_ITS | Encounter Summary ---
:1955 Author Organization [facility] Address [address] [place] [address] Care Team Providers Name Role Phone Elsewhere, Pcp Primary Care Provider Unavailable Reason for Visit Outpatient (Routine) - Closed Specialty Diagnoses / Procedures Referred By Contact Refer red To Contact Anesthesiology Diagnoses Fracture Wrist Closed Initial Right Jenn oRa P.A.-C. [address] [phone] Referral ID Status Reason Start Date Expiration Date Visits Requ ested Visits Authorized [id number] Closed 05/20/2021 05/20/2022 1 1 Encounter Details Date Type Department Care Team Description 05/21/2021 Virtual Visit Department of General Roscoe Roa, P.A.-C. [address] [place] [phone] Preanesthetic Medical Exam (Primary Dx); [place], [place].N. [address] [place] [phone] Fracture Wrist Closed Initial Right [address] [phone] Social History Tobacco Use Types Packs/Day Years Used Date Smoking Tobacco: Every Day Smokeless Tobacco: Never Alcohol Use Standard Drinks/Week Comments Yes 0 (1 standard drink = 0.6 oz pure alcoho l) Sex Assigned at Date Recorded Not on file documented as of this encounter Progress Notes Jody Millard, R.N. - 05/21/2021 10:45 AM CST This patient was called for a YESSICA visit on 05/21/2021. Surgery Nurse Laborer [facility] Skin Alert Assessment: Complete this section only if the patient is greater than or equal to 18 y/o BMI <19 or >50: no Documented risk factors that indicate higher risk for pressure ulcer? No Do you have impaired sensation? No Is patient chair-bound or unable to reposition themselves? No Anesthesia Risk Assessment: Do you have an implanted cardiac device? No Do you have difficulties lying flat? No Comment: Do you have any uatsdin or other objection to having a blood transfusion? No Teaching: Preoperative education was done with (x) patient () parent . It was confirmed the patient/family member had received the following preoperative education sheets:Checklist For Surgical Patients ([id number]),???Surgical Site Infections: Reducing Your Risk ([id number]), Speak Up: Antibiotics ([id number]), Acute Pain and the Healing Process ([id number]) with the Integrative Medicine and Health ([id number]), and ???Appointments Required Before Your Surgery?? (no MC). These were reviewed in detail. (x) Preoperative medication education provided through Ask Ruston Expert (x) Preoperative COVID-19 testing ordered and discussed with patient Patient is ready to learn, no apparent learning barriers were identified. Reviewed diagnosis and treatment plan; patient verbalized understanding through teach back. All questions were answered. Patient has contact information and understands the need to call with any questions or concerns. Post op appointments: 1st po with surgeon or physician speech pathologist assistant: (x) made ()TBD L HANDLER documented in this encounter Plan of Treatment Not on filedocumented as of this encounter Visit Diagnoses Diagnosis Preanesthetic Medical Exam - Primary Fracture Wrist Closed Initial Right documented in this encounter Care Teams Lithographed Plate Inspector Relationship Specialty Start Date End Date Elsewhere, Pcp PCP - General Family Medicine 03/11/21 documented as of this encounter
--- OUTSIDE RECORDS SUMMARY | 2022-04-03 11:09 | XMS_ITS | Encounter Summary ---
:1955 Author Organization [facility] Address [address] [place] [address] Care Team Providers Name Role Phone Unavailable Primary Care Provider Unavailable Encounter Details Date Type Department Care Team Description 01/10/2008 Hospital Encounter HX [facility] Sadiq Borjas, INPT/OBSRV M.Evelyn [id number] [phone] (Wo rk) Social History Tobacco Use Types Packs/Day Years Used Date Smoking Tobacco: Never Assessed Sex Assigned at Date Recorded Not on file documented as of this encounter Plan of Treatment Not on filedocumented as of this encounter Visit Diagnoses Not on filedocumented in this encounter
--- OUTSIDE RECORDS SUMMARY | 2022-04-03 11:09 | XMS_ITS | Encounter Summary ---
:1955 Author Organization [facility] Address [address] [place] [address] Care Team Providers Name Role Phone Unavailable Primary Care Provider Unavailable Encounter Details Date Type Department Care Team Description 05/01/2012 Hospital Encounter [facility]X [facility] EHW Provider, Historic al Social History Tobacco Use Types Packs/Day Years [...] of this encounter Miscellaneous Notes Miscellaneous - Conversion, Historical Provider Ser - 05/01/2012 4:45 PM CDT [id number] [facility] [place] [facility] [address] [place] [id number] 05/03/2012 Bella Ashley Robert [address] [facility] [id number] Dear Bella: Thank you for allowing me to participate in your care. I have reviewed your recent test results and they are all normal. I hope you find this reassuring.. Your results are provided below for your review Your cholesterol results CHOL 188 05/01/2012 Desired total cholesterol is less than 200 Non fasting Please share this result with your PCP to discuss any further testing. Thank you for choosing [facility]. If you have any further questions, problems, or toschedule an appointment, please call [facility] in [place] at . Sincerely, Ezequiel Lozada [facility] [place] [facility] [address] [facility] [id number] Source: [facility] [id number] Document Id: [id number] documented in this encounter Plan of Treatment Not on filedocumented as of this encounter Procedures Procedure Name Priority Date/Time Associated Diagnosis Comme nts CHOLESTEROL, TOTAL, Routine 05/02/2012 9:27 AM Re sults for this S CDT procedure are i n the results section. documented in this encounter Results Cholesterol, Total (05/02/2012 9:27 AM CDT) P athologist Signature Cholestanol 188 MGDL [facility] Specimen (Source) Anatomical Collection Method Collection Time Re ceived Time Location / / Volume Laterality 05/02/2012 9:27 AM CDT Narrative [facility] - 09/01/19 14 12:20 PM SUPERVISOR MATRIX LDL Cholesterol is the primary guide to therapy. The NCEP recommends further evaluation o f: patients with cholesterol greater than 200 mg/dL if additional risk factor s are present, cholesterol greater than 240 mg/dL, triglycerides greater than 15 0 mg/dL, or HDL less than 40 mg/dL. Historical Provider LAB BLOOD ADD-ON Performing Organization Address City/State/ZIP Code Phon e Number [facility] documented in this encounter Visit Diagnoses Not on filedocumented in this encounter
--- OUTSIDE RECORDS SUMMARY | 2022-04-03 11:09 | XMS_ITS | Encounter Summary ---
:1955 Author Organization [facility] Address [address] [place] [address] Care Team Providers Name Role Phone Unavailable Primary Care Provider Unavailable Encounter Details Date Type Department Care Team Description 01/06/2008 Hospital Encounter HX [facility] Sadiq Borjas, INPT/OBSRV M.DTam [address] [phone] (Wo rk) Social History Tobacco Use Types Packs/Day Years Used Date Smoking Tobacco: Never Assessed Sex Assigned at Date Recorded Not on file documented as of this encounter Plan of Treatment Not on filedocumented as of this encounter Visit Diagnoses Not on filedocumented in this encounter
--- OUTSIDE RECORDS SUMMARY | 2022-04-03 11:09 | XMS_ITS | Clinical Summary ---
:1955 Author Organization [facility] [place] [address] Care Team Providers Name Role Phone David Sparks MD Primary Care Provider Allergies Active Allergy Reactions Severity Noted Date Comments Aspirin, Buffered Ecchymosis 01/18/2007 Phenytoin 01/18/2007 gingival hyperp lasia Hydrochlorothiazide 01/18/2007 low sodi um Carbamazepine 01/18/2007 Medications Medication Sig Dispensed Refills Start Date End Date Status CALCIUM + D 600 MG take one twice 60 2 01/21/2008 Active (1,500)-200 UNIT daily TABIndications: Closed fracture of metatarsal bone(s) flash glucose As directed. 1 Device 0 12/18/2019 Ac tive scanning reader miscIndications: Diabetes mellitus type 1, controlled, without complications (HC) sertraline (ZOLOFT) Take 1 Tablet (50 90 Tablet 3 08/03/2021 Active 50 mg mg) by mouth once tabletIndications: daily. Depression with anxiety metoprolol succinate Take 1 Tablet (200 90 Tablet 3 08/03/2021 Active SR (TOPROL XL) 200 mg) by mouth once mg Sustained-Release daily. tabletIndications: Hypertension, unspecified type LORazepam (ATIVAN) 1 Take 1 Tablet (1 15 Tablet 1 08/03/2021 Active mg mg) by mouth at tabletIndications: bedtime if needed Partial idiopathic for Anxiety. epilepsy with seizures of localized onset, not intractable, without status epilepticus (HC) lisinopriL Take 1 Tablet (10 90 Tablet 3 08/03/2021 Active (PRINIVIL; ZESTRIL) mg) by mouth once 10 mg daily. tabletIndications: HTN (hypertension) levETIRAcetam Take 1 Tablet (750 180 Tablet 3 08/03/2021 Active (KEPPRA) 750 mg mg) by mouth 2 tabletIndications: times daily. Nonintractable epilepsy without status epilepticus, unspecified epilepsy type (HC), Seizure disorder (HC) insulin TO ADMINISTER 400 Each 3 08/03/2021 Activ e syringe-needle u-100 INSULIN AT HOME 0.3 mL 31 gauge x 5/16Indications: Diabetes mellitus without complication (HC) insulin regular Take 7-11 units 90 mL 6 08/03/2021 Active (NovoLIN R Regular subcutaneous three U-100 Insuln) 100 times daily unit/mL injectionIndications : Type 1 diabetes mellitus with complications (HC) insulin glargine, ADMINISTER 19 90 mL 6 08/03/2021 Active U-100, (Lantus U-100 UNITS UNDER THE Insulin) 100 unit/mL SKIN AT BEDTIME injectionIndications : Type 1 diabetes mellitus with complications (HC) gabapentin TAKE 1 AND 225 tablet. 3 08/03/2021 Activ e (NEURONTIN) 600 mg ONE-HALF TABLETS tabletIndications: BY MOUTH AT Other diabetic BEDTIME AND 1 neurological TABLET EVERY complication MORNING associated with type 1 diabetes mellitus (HC) atorvastatin Take 1 Tablet (10 90 Tablet 3 08/03/2021 Active (LIPITOR) 10 mg mg) by mouth once tabletIndications: daily. Hyperlipidemia LDL goal <100 amLODIPine (NORVASC) Take 1 Tablet (10 90 Tablet 3 08/03/2021 Active 10 mg mg) by mouth once tabletIndications: daily. Hypertension, unspecified type alendronate TAKE 1 TABLET BY 13 tablet. 3 08/03/2021 Active (FOSAMAX) 70 mg MOUTH 1 TIME A tabletIndications: WEEK IN THE Osteoporosis, MORNING ON AN unspecified EMPTY STOMACH AND osteoporosis type, WITH FULL GLASS OF unspecified WATER. DO NOT LIE pathological DOWN FOR 1 HOUR fracture presence diazePAM CONCENTRATE Take 1 mL (5 mg) 30 mL 0 08/04/2021 Active (DIAZEPAM INTENSOL) by mouth each time 5 mg/mL if needed (for solutionIndications: seizures >3 Partial idiopathic minutes with loss epilepsy with of seizures of consciousness.). localized onset, not intractable, without status epilepticus (HC) blood sugar Dispense item 400 Each 3 12/07/2021 Act angel diagnostic (Contour covered by pt ins. Next Test Strips) E10.65 IDDM type stripIndications: I, uncontrolled - Diabetes mellitus Test 4 times/day. without complication Reason: High A1C (HC) Patient has Contour Next 1 meter. 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) Active Problems Problem Noted Date Protein-calorie malnutrition 08/03/2021 Osteomyelitis of great toe of right foot 08/03/2021 Depression, recurrent 08/03/2021 Osteoporosis 01/23/2018 DIABETES 05/24/2002 Unspecified essential hypertension Unspecified epilepsy without mention of intractable ep ilepsy Tobacco use disorder Encounters Date Type Specialty Care Team Description 02/23/2022 Refill DavyteDavid harris Refil l Request (Lacosamide) 02/22/2022 Office Visit Huey Bal DPM Con sult (Left great toe ingrown nail) 02/22/2022 Travel 02/16/2022 Telephone Huey Bal DPM Imani ointment Request (LEFT BIG TOE INGROWN TOENAIL) 02/16/2022 Nurse Triage VotelDavid Toe P ain/problem from Last 3 Months Immunizations Name Administration Dates Next Due COVID-19 vaccine (InfoScout 10/12/2020, 09/21/2020 30mcg/0.3mL) PF, MDV Influenza Virus, Unspecified 04/23/2019, 05/02/2016, 015 Influenza, IIV3 (Age 6-35 mos) 06/11/2014 Influenza, IIV3 (Age >=3 years) 04/24/2017, 08/02/2016, 04/03, 05/01/2012, 05/14/2005, 04/12/2004 Influenza, IIV4 03/23/2020, 04/27/2018 Influenza, IIV4 (=>6mos) MDV 04/23/2019, 04/30/2018 Pneumococcal Poly,23-Valent 03/05/1996 (Pneumovax) Pneumococcal conj 13-Valent (Prevnar 01/23/2018 13) Tdap 01/23/2018, 10/23/2006 Zoster (Shingrix-RZV, recombinant) 10/19/2018, 08/20/2018 Family History Medical History Relation Name Comments Heart Disease Brother Frank hx triple bypass 3 times Heart Disease Father age 76 Diabetes Mother Diabetes Sister Jeannie oc renal co mlications Cancer-breast No Family History Cancer-ovarian No Family History Relation Name Status Comments Brother Frank Father Mother Sister Jeannie Social History Tobacco Use Types Packs/Day Years Used Date Current Every Day Smoker Cigarettes 0.5 Smokeless Tobacco: Never Used Tobacco Cessation: Ready to Quit: Yes; C ounseling Given: Yes Comments: working on quitting 05/13/20, 5 cigs per day Alcohol Use Standard Drinks/Week Comments Yes 0 (1 standard drink = 0.6 oz pure alcoho l) occasionally Alcohol Habits Answer Date Recorded How often do you have a drink containing 4 or more times a w [place] 02/08/2019 alcohol? How many drinks containing alcohol do you have 1 or 2 02/08/2019 on a typical day when you are drinking? How often do you have six or more drinks on one Never 02/08/2019 occasion? Comment: Not asked Sex Assigned at Date Recorded Not on file Obstetrics History Last Filed Vital Signs Vital Sign Reading Time Taken Comments Blood Pressure 134/74 02/22/2022 1:39 PM CDT Pulse 68 02/22/2022 1:39 PM CDT Temperature 36.7 ??C (98.1 ??F) 11/02/2021 1:22 PM CDT Respiratory Rate 18 02/06/2019 9:11 AM CDT Oxygen Saturation 100% 02/22/2022 1:39 PM CDT Inhaled Oxygen Concentration - - Weight 48.2 kg (106 lb 3.2 oz) 02/22/2022 1:39 PM CDT Height 157.1 cm (5' 1.85) 11/02/2021 1:22 PM CDT Body Mass Index 19.52 11/02/2021 1:22 PM CDT Plan of Treatment Upcoming Encounters Date Type Specialty Care Team Description 04/07/2022 Office Visit David Sparks MD [address] [place], [place] [address] (Wo rk) 04/29/2022 Office Visit Edward Sanford, PhD, LP [address] [facility] [address] [place], [place] [address] (Wo rk) Health Maintenance Due Date Last Done Comments Fecal testing non-DNA 11/30/2019 11/29/2018 (FIT,FOBT,iFOBT) for age 45-75 COVID-19 vaccine series (4 05/06/2021 03/11/2021, , - Booster for Pfizer 09/21/2020 series) Pneumococcal series for age 1206/22/2021 01/23/2018, 03/05/19 96 65+ (3 - PPSV23 or PCV20) Influenza for age 65+ 03/03/2022 03/23/2020, 04/23/2019, 04/23/2019, Additional history exists BMI (ht and wt on same day) 11/02/2022 11/02/2021, 08/03/19 22, for age 18+ 12/08/2020, Additional history exists Depression screening for 11/02/2022 11/02/2021, 11/02/2021, age 12+ 12/08/2020, Additional history exists Medicare Wellness for age 0511/02/2022 11/02/2021 65+ Mammogram for age 45-75 11/09/2022 11/09/2021, 01/23/2017, 09/10/2010 Pap test for age 21-65 12/09/2022 11/10/2004 Postponed from 11/11/2007 ([place] ent discretion) Lipids for age 45-75 11/02/2026 11/02/2021, 12/08/2020, 08/20/2018, Additional history exists Tetanus booster 01/24/2028 01/23/2018, 10/23/2006 Hepatitis C screening for Completed 01/04/2010 age 18-79 Tdap Completed 01/23/2018, 10/23/2006 Zoster (shingles) series Completed 10/19/2018, 08/20/2018 for age 50+ DEXA/DXA scan for age 65+ Completed 11/09/2021, 01/23/2017 Results Not on filefrom Last 3 Months Insurance Payer Benefit Plan / Subscriber ID Effective Dates Phone Addre ss Type Group MEDICARE PART B MEDICARE PART B [id number] 2021-Presen ATTN: CLAIMS - HB USE ONLY HB ONLY t [address] [place] [address] MEDICARE - PB MEDICARE PB [id number] 2021-Presen ATT N: CLAIMS USE ONLY ONLY t [address] [place] [address] Advance Directives Latest Code Status on File Code Status Date Activated Date Inactivated Comments Full Code 02/03/2019 3:51 PM 02/06/2019 3:14 PM Care Teams Credit Charge Authorizer Relationship Specialty Start Date End Date Votel, David Conway MD PCP - General 10/23/06 [address] [place] [address]
--- OUTSIDE RECORDS SUMMARY | 2022-04-03 11:09 | XMS_ITS | Encounter Summary ---
:1955 Author Organization [facility] Address [address] [place] [address] Care Team Providers Name Role Phone Unavailable Primary Care Provider Unavailable Encounter Details Date Type Department Care Team Description 01/06/[address] [facility] Sadiq Borjas, INPT/OBSRV M.DTam [address] [address] (Wo rk) Social History Tobacco Use Types Packs/Day Years Used Date Smoking Tobacco: Never Assessed Sex Assigned at Date Recorded Not on file documented as of this encounter Plan of Treatment Not on filedocumented as of this encounter Visit Diagnoses Not on filedocumented in this encounter
--- OUTSIDE RECORDS SUMMARY | 2022-04-03 11:09 | XMS_ITS | Encounter Summary ---
:1955 Author Organization [facility] Address [address] [place] [address] Care Team Providers Name Role Phone Unavailable Primary Care Provider Unavailable Encounter Details Date Type Department Care Team Description 03/30/2012 Hospital Encounter HX NO MAPPING Provider, Historical [...]
--- OUTSIDE RECORDS SUMMARY | 2022-04-03 11:09 | XMS_ITS ---
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, not intractable, without status epilepticus ALLERGIES Substance Reaction Event Type Date Status Tegretol Unknown Drug Allergy Jul, Active Hydrochlorothiazide low sodium Drug Allergy Jul, Active Aspirin Asa/extra Strength Antacid Drug Allergy Jul, A ctive (aspirin, buffered) Dilantin gingival hyperplasia Drug Allergy Jul, Active ENCOUNTERS Encounter Location Date Diagnosis [facility] [place], [place] [address] [place] [phone] [facility] [place] Jul, Epilepsy, unspecified, [place] [address] [place], [place] not intractabl e, without [address] status epileptic us G40.909 [facility] [address] [place] Apr, Localization-related [place] [address] [place], [place] (focal) (parti al) [phone] idiopathic epile psy and epileptic syndro mes with seizures of loca lized onset, not intra ctable, without status epilepticus G40. 009 [facility] [address] [place], [place] [address] [facility] [address] [place] [address] [facility] [address] [place], [place] [address] IMMUNIZATIONS No Known Immunizations SOCIAL HISTORY Qualifiers Date Current Smoker REASON FOR REFERRAL FUNCTIONAL STATUS PLAN OF CARE Activity Details Follow Up 1 Year Reason: VITAL SIGNS Weight 51.8 kg 2020-07-29 Weight 49.7 kg 2019-04-25 Height 62 in 2020-07-29 Height 62 in 2019-04-25 Heart Rate 73 /min 2020-07-29 Heart Rate 67 /min 2019-04-25 Temperature 96.9 degrees Fahrenheit 2020-07-29 BMI 20.88 kg/m2 2020-07-29 BMI 20.04 kg/m2 2019-04-25 Blood pressure systolic 116 mm Hg 2020-07-29 Blood pressure diastolic 68 mm Hg 2020-07-29 MEDICATIONS Medication Instructions Dosage Frequency Start End Duration Statu s Date Date Lacosamide 100 Orally Twice a 1 tablet 12h 90 days A ctive MG day Calcium + D 600 Orally twice a 1 tablet Active MG (1,500)-200 day (bid) UNIT Sertraline HCl Orally Once a 1 tablet 24h Ac tive 50 MG day levETIRAcetam Orally Twice a 1 tablet 12h 90 days Ac tive 750 MG day diazePAM 5 Orally for 1 mL each time Act angel MG/5ML seizures if needed lasting greater than 3 minutes with loss of consciousness Metoprolol Orally Once a 1 tablet 24h Active Succinate ER 200 day MG LORazepam 1 MG Orally for 1 tablet each Active seizures time if needed lasting greater than 3 minutes Lipitor 10 MG Orally Once a 1 tablet 24h 30 day(s) A ctive day Lantus SoloStar Inject 15 Active 100 UNIT/ML Units subcutaneous before bedtime Norvasc 10 MG Orally Once a 1 tablet 24h Act angel day Lisinopril 10 MG Orally Once a 1 tablet 24h Active day Fosamax 70 MG 1 TABLET BY Active MOUTH 1 TIME A WEEK IN THE MORNING ON AN EMPTY STOMACH AND WITH FULL GLASS OF WATER. DO NOT LIE DOWN FOR 1 HOUR Insulin Aspart 7-10 units Active 100 UNIT/ML three times daily with meals per home sliding scale Gabapentin 600 1 tablet in AM Ac tive MG and 1.5 tablet in PM PROCEDURES Procedure Date Ordered Result Body Site Video EEG with interpretation <12 hours (Mod 52) Feb 03, 2019 Video EEG with interpretation <12 hours (Mod 52) Feb 06, 2019 Video EEG with interpretation 12-24 hrs Feb 05, 2019 Video EEG with interpretation 12-24 hrs Feb 04, 2019 RESULTS No Results REASON FOR VISIT symptoms, Follow-up after hospital care, Follow-up after hospital care, Follow- up after hospital care, Follow-up after hospital care, Pt scheduled-------, r/s 04/02 [facility] Providers [facility] Member Patient Patient Patient Patient Patient Subscriber Subscriber Subscriber Group Insurance Plan Plan Plan Plan ID Relationship Address Phone Name Date of ID Name Date of No Type Insurance Insurance Insurance Coverage to Subscriber Address Phone Name Dates BLUE [id number] PO [phone] BLUE self Bella [id number] [place] [address] [address] [address] [place] [facility] 6 [address] [facility] [phone]
== END 2022-04-03 12:55 | disposition home or self-care (01) ==
PROVIDERS: Emergency Provider Family Medicine; PCP Family Medicine
DX: S20.211A Contusion of right front wall of thorax, initial encounter (principal); W19.XXXA Unspecified fall, initial encounter; Y93.89 Activity, other specified; Y92.019 Unspecified place in single-family (private) house as the place of occurrence of the external cause; Y99.8 Other external cause status
CPT/HCPCS: 71101; 99283

== ENCOUNTER 2023-01-31 07:00 | Emergency (ER) | payer MEDICARE, SELFPAY ==
[2023-01-31] VITALS (17 sets, daily range): BP systolic 108–168; BP diastolic 66–76; PULSE 62–66; RESP 18; TEMP 36.2; O2SAT 92–100; BMI 19.2
--- OUTSIDE RECORDS SUMMARY | 2023-01-31 07:05 | XMS_ITS ---
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, not intractable, without status epilepticus G40.009 Active [id number] ALLERGIES Substance Reaction Event Type Date Status Tegretol Unknown Drug Allergy Jul, Active Hydrochlorothiazide low sodium Drug Allergy Jul, A ctive Aspirin Asa/extra Strength A ntacid (aspirin, buffered) Drug Allergy Jul, Active Dilantin gingival hyperplasia Drug Allergy Jul, Active ENCOUNTERS Encounter Location Date Diagnosis [facility] [address] [place] [address] [place] [address] Jul, [facility] [address] [place] [address] Jul, Epilepsy, unspecified, not intractable, without status epilepticus G40.909 [facility] [address] [place] [address] Apr, Localization-related (focal) (partial) 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, not intractable, without status epilepticus G40.009 [facility] [address] [place] [address] Mar, [facility] [address] [place] [address] Mar, [facility] [address] [place] [address] Jan, IMMUNIZATIONS No Known Immunizations SOCIAL HISTORY Qualifiers Date Current Smoker REASON FOR REFERRAL FUNCTIONAL STATUS PLAN OF CARE Activity Details Follow Up 1 Year Reason: VITAL SIGNS Weight 51.8 kg 2020-07-29 Weight 49.7 kg 2019-04-25 Height 62 in 2020-07-29 Height 62 in 2019-04-25 Heart Rate 73 /min 2020-07-29 Heart Rate 67 /min 2019-04-25 Temperature 96.9 degrees Fahrenheit BMI 20.88 kg/m2 2020-07-29 BMI 20.04 kg/m2 2019-04-25 Blood pressure systolic 116 mm Hg Blood pressure diastolic 68 mm Hg 2020-07 MEDICATIONS Medication Instructions Dosage Frequency Start Date End Date Duration Status Lacosamide 100 MG Orally Twice a day 1 tablet 12h 90 days Active Calcium + D 600 MG (1,500)-200 UNIT Orally twice a day (bid) 1 tablet Active Sertraline HCl 50 MG Orally Once a day 1 tablet 24h Active levETIRAcetam 750 MG Orally Twice a day 1 tablet 12h 90 days Active diazePAM 5 MG/5ML Orally for seizures lasting greater than 3 minutes with loss of consciousness 1 mL each time if needed Active Metoprolol Succinate ER 200 MG Orally Once a day 1 tablet 24h Active LORazepam 1 MG Orally for seizures lasting greater than 3 minutes 1 tablet each time if needed Active Lipitor 10 MG Orally Once a day 1 tablet 24h 30 day(s) Active Lantus SoloStar 100 UNIT/ML Inject 15 Units subcutaneous before bedtime Active Norvasc 10 MG Orally Once a day 1 tablet 24h Active Lisinopril 10 MG Orally Once a day 1 tablet 24h Active Fosamax 70 MG 1 TABLET BY MOUTH 1 TIME A WEEK IN THE MORNING ON AN EMPTY STOMACH AND WITH FULL GLASS OF WATER. DO NOT LIE DOWN FOR 1 HOUR Active Insulin Aspart 100 UNIT/ML 7-10 units three times daily with meals per home sliding scale Active Gabapentin 600 MG 1 tablet in AM and 1.5 tablet in PM Active PROCEDURES Procedure Date Ordered Result Body Site Video EEG with interpretation <12 hours (Mod 52) Jan Video EEG with interpretation 12-24 hrs Feb 04, 2019 Video EEG with interpretation 12-24 hrs Feb 05, 2019 Video EEG with interpretation <12 hours (Mod 52) Jan RESULTS No Results REASON FOR VISIT symptoms, Follow-up after hospital care, Follow-up after hospital care, Follow- up after hospital care, Follow-up after hospital care, Pt scheduled-------, r/s 04/02 appt, SCANNED IN - VIMPAT Insurance Providers Health Insurance Type Health Plan Insurance Address Health Plan Insurance Phone Health Plan Insurance Name Health Plan Coverage Dates Member ID Patient Relationship to Subscriber Patient Address Patient Phone Patient Name Patient Date of Subscriber ID Subscriber Name Subscriber Date of Group No [facility] [id number] [address] [address] [facility] [id number] [facility] emely Jones [id number] [phone]
--- NOTE | 2023-01-31 07:20 | ED.GENADULT ---
HPI - General Adult General Time Seen by Provider: 07:20 <Lawrence Sanchez MD - Last Filed: 01/31/23 07:23> Date Seen: 01/31/23 <Lawrence Sanchez MD - Last Filed: 01/31/23 07:23> Chief complaint: Weakness <Lawrence Sanchez MD - Last Filed: 01/31/23 07:23> Stated complaint: Dizziness <Lawrence Sanchez MD - Last Filed: 01/31/23 07:23> Time Seen by Provider: 01/31/23 07:12 <Lawrence Sanchez MD - Last Filed: 01/31/23 07:23> Source: patient, family, RN notes reviewed and old records reviewed <Lawrence Sanchez MD - Last Filed: 01/31/23 07:23> Mode of arrival: ambulatory <Lawrence Sanchez MD - Last Filed: 01/31/23 07:23> Limitations: no limitations <Lawrence Sanchez MD - Last Filed: 01/31/23 07:23> History of Present Illness HPI narrative: 67-year-old female who presents today with dizziness. Woke up today with room spinning dizziness and feeling off balance. She felt a little bit last night as well but worse this morning. She has had this off and on in the past. She has nausea but no vomiting. No chest pain or shortness of breath. Has a headache in the middle of her head. No vision changes or blind spots. No numbness or tingling in the arms or legs. Headache is worse with movement but present at rest as well. Also notes right ear fullness and some ringing in the right ear. No ear pain, no drainage, feels like the ear is plugged. <Lawrence Sanchez MD - Last Filed: 01/31/23 07:23> Related Data Home medications: Home Medications Medication Instructions Recorded Confirmed alendronate 70 mg tablet 70 mg PO .weekly 04/03/22 04/03/22 amlodipine 10 mg tablet 10 mg PO DAILY 04/03/22 04/03/22 atorvastatin 10 mg tablet 10 mg PO DAILY 04/03/22 01/31/23 gabapentin 600 mg tablet 600 - 900 mg PO BID 04/03/22 01/31/23 insulin glargine 100 unit/mL 19 unit subcut HS 04/03/22 01/31/23 subcutaneous solution (Lantus U-100 Insulin) insulin regular human 100 unit/mL 7 - 11 unit subcut TID 04/03/22 04/03/22 injection solution (Novolin R Regular U-100 Insulin) lacosamide 100 mg tablet 100 mg PO BID 04/03/22 01/31/23 levetiracetam 750 mg tablet 750 mg PO BID 04/03/22 01/31/23 lisinopril 10 mg tablet 10 mg PO DAILY 04/03/22 01/31/23 metoprolol succinate 200 mg 200 mg PO DAILY 04/03/22 01/31/23 tablet,extended release 24 hr sertraline 50 mg tablet 50 mg PO DAILY 04/03/22 01/31/23 aspirin 81 mg tablet,delayed 81 mg PO DAILY 01/31/23 01/31/23 release (Adult Aspirin Regimen) clopidogrel 75 mg tablet 75 mg PO DAILY 01/31/23 01/31/23 Previous Rx's Medication Instructions Recorded carbamide peroxide 6.5 % ear drops 5 drp Otic (ear-right) DAILY 5 01/31/23 (Ear Wax Drops) days #20 mL diazepam 5 mg tablet (Valium) 2.5 - 5 mg (0.5 - 1 x 5 mg) PO BID 01/31/23 PRN dizziness #6 tabs meclizine 25 mg tablet 25 mg PO TID #15 tabs 01/31/23 <Lawrence Sanchez MD - Last Filed: 01/31/23 07:23> Allergies/adverse reactions: Allergies Allergy/AdvReac Type Severity Reaction Status Date / Time No Known Drug Allergies Allergy Verified 04/03/22 10:13 <Lawrence Sanchez MD - Last Filed: 01/31/23 07:23> Review of Systems Status of ROS: Reports: 10 or more systems reviewed and unremarkable except as noted in History and below <Lawrence Sanchez MD - Last Filed: 01/31/23 07:23> [facility] Social History: Social History Smoking Status: Current every day smoker Do you use any of these nicotine containing products: None Second hand tobacco smoke exposure: No How often do you have a drink containing alcohol: 2-3 times a week How often do you have six or more drinks on one occasion: Never AUDIT-C Alcohol total score: 3 Non-prescribed substance use: denies use service: No <Lawrence Sanchez MD - Last Filed: 01/31/23 07:23> Exam Narrative: Exam Narrative: General: Well-developed and well-nourished, no acute distress Head: Atraumatic and normocephalic Eyes: Pupils are equal reactive, extraocular motions intact, conjunctiva clear ENT: External nose and ears are normal, posterior pharynx without erythema or exudate Neck: No midline cervical tenderness, full spontaneous range of motion the neck, trachea midline, no adenopathy Heart: Regular rate and rhythm no murmurs or thrills Lungs: Clear to auscultation bilaterally without wheezes or crackles Abdomen: Soft, nontender, nondistended with active bowel sounds Musculoskeletal: No tenderness, deformity, or edema Neurologic: Awake, alert, and oriented x3, no gross focal neurologic deficits, cranial nerves intact as tested. Dizziness worse with moving the eyes to the right and turning the head to the right. Psych: Mood and affect are appropriate Skin: No rashes <Lawrence Sanchez MD - Last Filed: 01/31/23 07:23> Const: Vital Signs, click to edit/add: Vital Signs - 24 hr 01/31/23 07:08 01/31/23 07:35 01/31/23 08:00 Temperature 97.1 F L Pulse Rate Pulse Rate [Pulse Oximeter] 65 64 Respiratory Rate 18 Blood Pressure Blood Pressure [Ri ght Upper Arm] 158/73 H 141/70 H 108/74 Pulse Oximetry 98 98 Oxygen Delivery Me thod Room Air Room Air 01/31/23 08:14 01/31/23 08:30 01/31/23 08:31 Temperature Pulse Rate 65 65 64 Pulse Rate [Pulse Oximeter] Respiratory Rate Blood Pressure 162/69 H Blood Pressure [Ri ght Upper Arm] Pulse Oximetry 98 98 98 Oxygen Delivery Me thod 01/31/23 09:00 01/31/23 09:02 01/31/23 09:30 Temperature Pulse Rate 64 66 62 Pulse Rate [Pulse Oximeter] Respiratory Rate Blood Pressure 150/70 H Blood Pressure [Ri ght Upper Arm] Pulse Oximetry 92 97 98 Oxygen Delivery Me thod 01/31/23 09:31 01/31/23 10:00 01/31/23 10:01 Temperature Pulse Rate 62 65 65 Pulse Rate [Pulse Oximeter] Respiratory Rate Blood Pressure 148/72 H 148/66 H Blood Pressure [Ri ght Upper Arm] Pulse Oximetry 100 98 99 Oxygen Delivery Me thod 01/31/23 10:02 01/31/23 10:30 01/31/23 10:31 Temperature Pulse Rate 66 63 64 Pulse Rate [Pulse Oximeter] Respiratory Rate Blood Pressure 158/69 H Blood Pressure [Ri ght Upper Arm] Pulse Oximetry 99 99 98 Oxygen Delivery Me thod 01/31/23 11:00 01/31/23 11:01 Temperature Pulse Rate 64 64 Pulse Rate [Pulse Oximeter] Respiratory Rate Blood Pressure 168/76 H Blood Pressure [Ri ght Upper Arm] Pulse Oximetry 98 99 Oxygen Delivery Me thod <Lawrence Sanchez MD - Last Filed: 01/31/23 07:23> Vital Signs, click to edit/add: Vital Signs - 24 hr 01/31/23 07:08 01/31/23 07:35 01/31/23 08:00 Temperature 97.1 F L Pulse Rate Pulse Rate [Pulse Oximeter] 65 64 Respiratory Rate 18 Blood Pressure Blood Pressure [Ri ght Upper Arm] 158/73 H 141/70 H 108/74 Pulse Oximetry 98 98 Oxygen Delivery Me thod Room Air Room Air 01/31/23 08:14 01/31/23 08:30 01/31/23 08:31 Temperature Pulse Rate 65 65 64 Pulse Rate [Pulse Oximeter] Respiratory Rate Blood Pressure 162/69 H Blood Pressure [Ri ght Upper Arm] Pulse Oximetry 98 98 98 Oxygen Delivery Me thod 01/31/23 09:00 01/31/23 09:02 01/31/23 09:30 Temperature Pulse Rate 64 66 62 Pulse Rate [Pulse Oximeter] Respiratory Rate Blood Pressure 150/70 H Blood Pressure [Ri ght Upper Arm] Pulse Oximetry 92 97 98 Oxygen Delivery Me thod 01/31/23 09:31 01/31/23 10:00 01/31/23 10:01 Temperature Pulse Rate 62 65 65 Pulse Rate [Pulse Oximeter] Respiratory Rate Blood Pressure 148/72 H 148/66 H Blood Pressure [Ri ght Upper Arm] Pulse Oximetry 100 98 99 Oxygen Delivery Me thod 01/31/23 10:02 01/31/23 10:30 01/31/23 10:31 Temperature Pulse Rate 66 63 64 Pulse Rate [Pulse Oximeter] Respiratory Rate Blood Pressure 158/69 H Blood Pressure [Ri ght Upper Arm] Pulse Oximetry 99 99 98 Oxygen Delivery Me thod 01/31/23 11:00 01/31/23 11:01 Temperature Pulse Rate 64 64 Pulse Rate [Pulse Oximeter] Respiratory Rate Blood Pressure 168/76 H Blood Pressure [Ri t Upper Arm] Pulse Oximetry 98 99 Oxygen Delivery Me thod <Isidoro Brooks MD - Last Filed: 01/31/23 11:28> Course Course Hospital Course: Patient seen and examined, prior records are reviewed. Patient presents today with room spinning dizziness. This is accompanied by tenderness in the right ear as well as muffled hearing in that right ear, dizziness is exacerbated by turning head to the right. Symptoms are most consistent with peripheral vertigo. Labs ordered along with Zofran and meclizine, CT scan of the head is ordered. Symptoms are improved with treatment, patient be discharged. She artery is on aspirin, Plavix, statin. <Lawrence Sanchez MD - Last Filed: 01/31/23 07:23> Vital Signs Vital signs: Initial Vital Signs Temperature 97.1 F L 01/31/23 07:08 Temperature Source Temporal Artery Scan 01/31/23 07:08 Pulse Rate 65 01/31/23 07:08 Respiratory Rate 18 01/31/23 07:08 Blood Pressure 158/73 H 01/31/23 07:08 Blood Pressure Mean 101 01/31/23 07:08 Blood Pressure Position Supine 01/31/23 07:08 Pulse Oximetry 98 01/31/23 07:08 Oxygen Delivery Method Room Air 01/31/23 07:08 Vital Signs Temperature 97.1 F L 01/31/23 07:08 Pulse Rate 65 01/31/23 07:08 Respiratory Rate 18 01/31/23 07:08 Blood Pressure 158/73 H 01/31/23 07:08 Pulse Oximetry 98 01/31/23 07:08 Oxygen Delivery Method Room Air 01/31/23 07:08 Temperature 97.1 F L 01/31/23 07:08 Pulse Rate 64 01/31/23 11:01 Respiratory Rate 18 01/31/23 07:08 Blood Pressure 168/76 H 01/31/23 11:01 Pulse Oximetry 99 01/31/23 11:01 Oxygen Delivery Method Room Air 01/31/23 08:00 <Lawrence Sanchez MD - Last Filed: 01/31/23 07:23> Initial Vital Signs Temperature 97.1 F L 01/31/23 07:08 Temperature Source Temporal Artery Scan 01/31/23 07:08 Pulse Rate 65 01/31/23 07:08 Respiratory Rate 18 01/31/23 07:08 Blood Pressure 158/73 H 01/31/23 07:08 Blood Pressure Mean 101 01/31/23 07:08 Blood Pressure Position Supine 01/31/23 07:08 Pulse Oximetry 98 01/31/23 07:08 Oxygen Delivery Method Room Air 01/31/23 07:08 Vital Signs Temperature 97.1 F L 01/31/23 07:08 Pulse Rate 65 01/31/23 07:08 Respiratory Rate 18 01/31/23 07:08 Blood Pressure 158/73 H 01/31/23 07:08 Pulse Oximetry 98 01/31/23 07:08 Oxygen Delivery Method Room Air 01/31/23 07:08 Temperature 97.1 F L 01/31/23 07:08 Pulse Rate 64 01/31/23 11:01 Respiratory Rate 18 01/31/23 07:08 Blood Pressure 168/76 H 01/31/23 11:01 Pulse Oximetry 99 01/31/23 11:01 Oxygen Delivery Method Room Air 01/31/23 08:00 <Isidoro Brooks MD - Last Filed: 01/31/23 11:28> Medical Decision Making MDM Narrative Medical decision making narrative: Todd -- inherited Ms. Jones at change of shift. Pending effect medication to some degree as well as imaging. On re-evaluation still feels dizzy with movement. She reports now moving her eyes to the left seem to reproduce dizziness. And on exam rotational movement of the head more so to the right causes this dizziness. Left ear canal is clear the right TM is rather full of cerumen which might explain some of the muffled sounds she is experiencing. She does report how she has had these episodes around waking in the past but this is worse than usual. Reviewing imaging. Head CT without radiology over-read noting involutional changes with volume loss and white matter disease without acute findings. Paranasal sinus mucosal inflammatory disease and probable cerumen impaction of the right ear Pending contrasted studies yet CTA head and neck. Will give more fluids and irrigate right ear and test with Valium. Has not received meclizine. 10:50 a.m. reassessed with less symptoms. Have not manage to dislodge much cerumen. I did spend some time with ear curette as well. Will attempt to irrigate again. Meantime it did discuss findings on CTA head and neck with induction machine operator for [facility]. Reassuring findings overall including improvement in symptoms along with history of prior. Is already taking a statin, aspirin, clopidogrel. Study: CT Neck Angio W/IV-01/31/2023 8:12:33 AM Ordering Physician: Laura Bravo Preliminary Report: The thoracic aorta is non aneurysmal with scattered atherosclerotic calcification. There is moderate narrowing of the left subclavian artery origin. The common carotid arteries are patent. There are atherosclerotic calcifications within the bilateral carotid bifurcations without evidence of high-grade stenosis according to NASCET criteria. The distal internal carotid arteries are patent. There is a dominant right and mildly hypoplastic left vertebral artery. Dictated by Quincy Vargas MD @ 01/31/2023 9:10:43 AM Study: CT Head Angio W/IV-01/31/2023 8:12:55 AM Ordering Physician: Laura Bravo Preliminary Report: The skullbase internal carotid arteries demonstrate moderate atherosclerotic calcifications throughout the siphons. The anterior cerebral and middle cerebral arteries are patent. The basilar artery is patent. There are patent bilateral posterior cerebral arteries. Dictated by Quincy Vargas MD @ 01/31/2023 9:18:57 AM Final Report: INDICATION: Vertigo and tinnitus COMPARISON: None TECHNIQUE: CT examination of the head was performed as axial sections without intravenous contrast. Images were obtained from the vertex of the skull through the skull base. Please note that all CT scans at this facility use dose modulation, iterative reconstruction, and/or weight-based dosing when appropriate to reduce radiation dose to as low as reasonably achievable. FINDINGS: The brain shows no sign of mass lesion, mass effect, hemorrhage, or edema. There are involutional changes. There is moderate cortical atrophy and there is moderate to severe white matter disease. There is no hydrocephalus. The visualized portions of the orbits are normal in appearance. The osseous structures are normal in appearance with no sign of abnormality in the skull base or calvarium. Incidental paranasal sinus mucosal inflammatory disease. Postoperative changes of the nasal cavity. Probable cerumen impaction on the right IMPRESSION: 1. Involutional changes consisting diffuse volume loss and white matter disease. No acute intracranial findings. 2. Paranasal sinus mucosal inflammatory disease. Postoperative changes of the nasal cavity. Probable cerumen impaction right ear Became too sensitive to remove the remainder of the impacted cerumen. She did report though that she could hear better and seem to improve her vision which to clarify meant that her dizziness was markedly less. Appeared to feel better. Seemed to have more energy. See patient discharge plan. <Isidoro Brooks MD - Last Filed: 01/31/23 11:28> Medical Records Medical records reviewed: Yes I reviewed the patient's medical records <Lawrence Sanchez MD - Last Filed: 01/31/23 07:23> Lab Data Lab results reviewed: Yes I reviewed the patient's lab results <Lawrence Sanchez MD - Last Filed: 01/31/23 07:23> Labs: Lab Results 01/31/23 Range/Units 07:35 WBC 6.55 (4.50-11.00) K/uL RBC 4.08 (4.00-5.20) m/uL Hgb 12.4 (12.0-16.0) gm/dL Hct 38.5 (33.0-51.0) % MCV 94 (80-100) fL MCH 30 (26-34) pg MCHC 32 (32-36) gm/dL RDW Coeff of Alicia 12.6 (11.5-15.5) % Plt Count 274 (140-440) K/uL Neut % (Auto) 59.4 (42.0-72.0) % Lymph % (Auto) 25.5 (20-44) % [place] % (Auto) 9.5 (0.0-11.0) % Eos % (Auto) 4.1 (0.0-7.0) % Baso % (Auto) 1.2 (0.0-3.0) % Neut # (Auto) 3.89 (1.7-7.0) K/uL Lymph # (Auto) 1.67 (0.90-2.90) K/uL [place] # (Auto) 0.60 (0.00-0.90) K/UL Eos # (Auto) 0.27 (0.00-0.50) K/uL Baso # (Auto) 0.08 (0.00-0.30) K/uL Abs Immat Gran (auto) 0.02 (0.00-0.30) K/uL Imm/Tot Granulo (auto) 0.3 % Sodium 136 (135-149) mmol/L Potassium 4.0 (3.6-5.1) mmol/L Chloride 102 (96-114) mmol/L Carbon Dioxide 28 (20-32) mmol/L BUN 17 (7-30) mg/dL Creatinine 0.8 (0.5-1.5) mg/dL Estimated Creat Clear 41.61 Estimated GFR 81 ml/min Glucose 269 H (60-115) mg/dL Calcium 8.5 (8.4-10.6) mg/dL Magnesium 1.9 (1.5-2.6) mg/dL POC Creatinine 0.9 (0.6-1.3) mg/dl POC Troponin I 0.00 L (0.01-0.04) ng/ml <Lawrence Sanchez MD - Last Filed: 01/31/23 07:23> Lab Results 01/31/23 Range/Units 07:35 WBC 6.55 (4.50-11.00) K/uL RBC 4.08 (4.00-5.20) m/uL Hgb 12.4 (12.0-16.0) gm/dL Hct 38.5 (33.0-51.0) % MCV 94 (80-100) fL MCH 30 (26-34) pg MCHC 32 (32-36) gm/dL RDW Coeff of Alicia 12.6 (11.5-15.5) % Plt Count 274 (140-440) K/uL Neut % (Auto) 59.4 (42.0-72.0) % Lymph % (Auto) 25.5 (20-44) % [place] % (Auto) 9.5 (0.0-11.0) % Eos % (Auto) 4.1 (0.0-7.0) % Baso % (Auto) 1.2 (0.0-3.0) % Neut # (Auto) 3.89 (1.7-7.0) K/uL Lymph # (Auto) 1.67 (0.90-2.90) K/uL [place] # (Auto) 0.60 (0.00-0.90) K/UL Eos # (Auto) 0.27 (0.00-0.50) K/uL Baso # (Auto) 0.08 (0.00-0.30) K/uL Abs Immat Gran (auto) 0.02 (0.00-0.30) K/uL Imm/Tot Granulo (auto) 0.3 % Sodium 136 (135-149) mmol/L Potassium 4.0 (3.6-5.1) mmol/L Chloride 102 (96-114) mmol/L Carbon Dioxide 28 (20-32) mmol/L BUN 17 (7-30) mg/dL Creatinine 0.8 (0.5-1.5) mg/dL Estimated Creat Clear 41.61 Estimated GFR 81 ml/min Glucose 269 H (60-115) mg/dL Calcium 8.5 (8.4-10.6) mg/dL Magnesium 1.9 (1.5-2.6) mg/dL POC Creatinine 0.9 (0.6-1.3) mg/dl POC Troponin I 0.00 L (0.01-0.04) ng/ml <Isidoro Brooks MD - Last Filed: 01/31/23 11:28> ECG Data Attestation: I personally reviewed and interpreted this ECG as follows: <Lawrence Sanchez MD - Last Filed: 01/31/23 07:23> Prior ECG tracings: not available for review <Lawrence Sanchez MD - Last Filed: 01/31/23 07:23> Interpretation: Performed at 7:05 a.m. demonstrates sinus rhythm rate 62, left bundle-branch block, no acute ischemic changes, normal axis, QTC 489, SD 182. No prior for comparison. <Lawrence Sanchez MD - Last Filed: 01/31/23 07:23> Discharge Plan Discharge Clinical Impression: Cerumen impaction, Peripheral vertigo <Lawrence Sanchez MD - Last Filed: 01/31/23 07:23> Patient Disposition: Home w/ Parent or Adult <Lawrence Sanchez MD - Last Filed: 01/31/23 07:23> Condition: Improved <Lawrence Sanchez MD - Last Filed: 01/31/23 07:23> Additional Instructions: Focus on hydration. Take care in transitions. can take meclizine regularly dosed over the next 3-4 days as long as not making you too sleepy. If you really need there is a small quantity of Valium as well. Remember this can make you extra tired. Please follow-up to discuss these events with your primary care provider. This would also be the time to follow up and have your ear cleaned out. Over the next 1-[address] Debrox or similar into your ear to soften up the wax that is there. It is also past time for a follow-up with your neurologist. <Lawrence Sanchez MD - Last Filed: 01/31/23 07:23> Prescriptions: New meclizine 25 mg tablet 25 mg PO TID Qty: 15 0RF diazepam [Valium] 5 mg tablet 2.5 - 5 mg PO BID PRN (Reason: dizziness) Qty: 6 0RF Ear Wax Drops 6.5 % drops 5 drp Otic (ear-right) DAILY 5 Days Qty: 20 0RF No Action alendronate 70 mg tablet 70 mg PO .weekly Patient Comments: TAKE 1 TABLET BY MOUTH 1 TIME A WEEK IN THE [facility] ON AN EMPTY STOMACH AND WITH A FULL GLASS OF WATER. DO NOT LIE DOWN FOR 1 HOUR. amlodipine 10 mg tablet 10 mg PO DAILY atorvastatin 10 mg tablet 10 mg PO DAILY gabapentin 600 mg tablet 600 - 900 mg PO BID Patient Comments: TAKE 1.5 TABLET BY MOUTH AT BEDTIME AND TAKE 1 TABLET BY MOUTH EVERY MORNING insulin glargine [Lantus U-100 Insulin] 100 unit/mL solution 19 unit SUBCUT HS Patient Comments: ADMINISTER 19 UNITS UNDER THE SKIN AT BEDTIME Novolin R Regular U100 Insulin 100 unit/mL solution 7 - 11 unit subcut TID lacosamide 100 mg tablet 100 mg PO BID levetiracetam 750 mg tablet 750 mg PO BID lisinopril 10 mg tablet 10 mg PO DAILY metoprolol succinate 200 mg tablet extended release 24 hr 200 mg PO DAILY sertraline 50 mg tablet 50 mg PO DAILY clopidogrel 75 mg tablet 75 mg PO DAILY aspirin [Adult Aspirin Regimen] 81 mg tablet,delayed release (DR/EC) 81 mg PO DAILY <Lawrence Sanchez MD - Last Filed: 01/31/23 07:23> Follow Up/Referrals: David Sparks MD [Primary Care Provider] - <Lawrence Sanchez MD - Last Filed: 01/31/23 07:23> Stand Alone Forms: [facility] Info Instructions <Lawrence Sanchez MD - Last Filed: 01/31/23 07:23>
--- NOTE | 2023-01-31 07:25 | CRLHL7_ITS ---
For Patients: As a result of the Century Cures Act, medical imaging exams and procedure reports are released immediately into your electronic medical record. You may view this report before your referring provider. If you have questions, please contact your health care provider. INDICATION: Vertigo, tinnitus. TECHNIQUE: CTA head with contrast bolus tracking, 3D angiographic rendering using maximum intensity projection (MIP) and images permanently archived. FINDINGS: There is scattered intracranial atherosclerotic disease. There is normal opacification of the intracranial vasculature. There is no large vessel occlusion. No aneurysm is identified. IMPRESSION: No large vessel occlusion. Please note that all CT scans at this facility use dose modulation, iterative reconstruction, and/or weight-based dosing when appropriate to reduce radiation dose to as low as reasonably achievable. Dictated by Presley Beard MD @ 01/31/2023 3:28:58 PM (Electronically Signed)
--- NOTE | 2023-01-31 07:25 | CRLHL7_ITS ---
For Patients: As a result of the Century Cures Act, medical imaging exams and procedure reports are released immediately into your electronic medical record. You may view this report before your referring provider. If you have questions, please contact your health care provider. INDICATION: Vertigo, tinnitus. TECHNIQUE: CTA neck with contrast bolus tracking, 3D angiographic rendering using maximum intensity projection (MIP) and images permanently archived. FINDINGS: There is carotid atherosclerosis. There is no significant carotid artery stenosis or dissection. There is no significant vertebral artery stenosis or dissection. There is a moderate stenosis of the proximal left subclavian artery. The soft tissues of the neck are within normal limits. Degenerative changes are noted in the cervical spine. IMPRESSION: 1. Carotid atherosclerosis without significant stenosis. 2. Moderate proximal left subclavian artery stenosis. Please note that all CT scans at this facility use dose modulation, iterative reconstruction, and/or weight-based dosing when appropriate to reduce radiation dose to as low as reasonably achievable. Dictated by Presley Beard MD @ 01/31/2023 3:31:31 PM (Electronically Signed)
--- NOTE | 2023-01-31 07:25 | CRLHL7_ITS ---
For Patients: As a result of the Century Cures Act, medical imaging exams and procedure reports are released immediately into your electronic medical record. You may view this report before your referring provider. If you have questions, please contact your health care provider. INDICATION: Vertigo and tinnitus COMPARISON: None TECHNIQUE: CT examination of the head was performed as axial sections without intravenous contrast. Images were obtained from the vertex of the skull through the skull base. Please note that all CT scans at this facility use dose modulation, iterative reconstruction, and/or weight-based dosing when appropriate to reduce radiation dose to as low as reasonably achievable. FINDINGS: The brain shows no sign of mass lesion, mass effect, hemorrhage, or edema. There are involutional changes. There is moderate cortical atrophy and there is moderate to severe white matter disease. There is no hydrocephalus. The visualized portions of the orbits are normal in appearance. The osseous structures are normal in appearance with no sign of abnormality in the skull base or calvarium. Incidental paranasal sinus mucosal inflammatory disease. Postoperative changes of the nasal cavity. Probable cerumen impaction on the right IMPRESSION: 1. Involutional changes consisting diffuse volume loss and white matter disease. No acute intracranial findings. 2. Paranasal sinus mucosal inflammatory disease. Postoperative changes of the nasal cavity. Probable cerumen impaction right ear Please note that all CT scans at this facility use dose modulation, iterative reconstruction, and/or weight-based dosing when appropriate to reduce radiation dose to as low as reasonably achievable. Dictated by Justo Bangura MD @ 01/31/2023 8:20:18 AM (Electronically Signed)
--- OUTSIDE RECORDS SUMMARY | 2023-01-31 07:29 | XMS_ITS ---
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, not intractable, without status epilepticus G40.009 Active [id number] ALLERGIES Substance Reaction Event Type Date Status Tegretol Unknown Drug Allergy Jul, Active Hydrochlorothiazide low sodium Drug Allergy Jul, A ctive Aspirin Asa/extra Strength A ntacid (aspirin, buffered) Drug Allergy Jul, Active Dilantin gingival hyperplasia Drug Allergy Jul, Active ENCOUNTERS Encounter Location Date Diagnosis [facility] [address] [place] [address] Jul, [facility] [address] [place] [address] Jul, Epilepsy, unspecified, not intractable, without status epilepticus G40.909 [facility] [address] [place] [address] Apr, Localization-related (focal) (partial) 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, not intractable, without status epilepticus G40.009 [facility] [address] [place] [address] Mar, [facility] [address] [place] [address] Mar, [facility] [address] [place] [address] Jan, IMMUNIZATIONS No Known Immunizations SOCIAL HISTORY [...] Feb 04, 2019 Video EEG with interpretation <12 hours [...] Subscriber Name Subscriber Date of Group No [facility] [id number] [address] [address] [facility] [id number] [facility] emely Jones [id number]
[2023-01-31 07:43] LABS: Creatinine, Point-of-Care* 0.9 mg/dl (0.6-1.3)
[2023-01-31 07:50] LABS: Basophils Absolute Auto 0.08 K/uL (0.00-0.30); Basophils Percent Auto 1.2 % (0.0-3.0); Eosinophils Absolute Auto 0.27 K/uL (0.00-0.50); Eosinophils Percent Auto 4.1 % (0.0-7.0); Hematocrit 38.5 % (33.0-51.0); Hemoglobin* 12.4 gm/dL (12.0-16.0); Immature Granulocytes Abs Auto 0.02 K/uL (0.00-0.30); Immature Granulocytes Pct Auto 0.3 %; Lymphocytes Absolute Auto 1.67 K/uL (0.90-2.90); Lymphocytes Percent Auto 25.5 % (20-44); Mean Corpuscular HGB Conc 32 gm/dL (32-36); Mean Corpuscular Hemoglobin 30 pg (26-34); Mean Corpuscular Volume 94 fL (80-100); Monocytes Percent Auto 9.5 % (0.0-11.0); Neutrophils Absolute Auto 3.89 K/uL (1.7-7.0); Neutrophils Percent Auto 59.4 % (42.0-72.0); Platelet Count* 274 K/uL (140-440); RDW Coefficient of Variation % 12.6 % (11.5-15.5); Red Blood Count 4.08 m/uL (4.00-5.20); White Blood Count* 6.55 K/uL (4.50-11.00)
[2023-01-31 07:54] LABS: Slide Review Reflex No
[2023-01-31 08:02] LABS: Chloride* 102 mmol/L (96-114); Sodium* 136 mmol/L (135-149)
[2023-01-31 08:04] LABS: Creatinine* 0.8 mg/dL (0.5-1.5); Est. Creatinine Clearance* 41.61; Estimated Glomerular Filt Rate 81 ml/min
[2023-01-31 08:05] LABS: Blood Urea Nitrogen* 17 mg/dL (7-30); Calcium* 8.5 mg/dL (8.4-10.6); Carbon Dioxide* 28 mmol/L (20-32); Glucose* 269 mg/dL (60-115); Magnesium* 1.9 mg/dL (1.5-2.6)
[2023-01-31] MEDS: 0.9 % SODIUM CHLORIDE 500 ML 500 ML IV (08:13)
[2023-01-31] MEDS: ONDANSETRON 2 MG/ML inj 4 MG IVP (08:13)
[2023-01-31] MEDS: diazePAM 5 MG/ML inj IV (09:00)
[2023-01-31] MEDS: 0.9 % SODIUM CHLORIDE 1000 ml 1,000 ML IV (09:00)
--- NOTE | 2023-01-31 09:42 | ED.NURSE ---
attempted to irrigate the ear out without success and patient is jumping up and down, moving. Patient wants to have more pain medication. Informed Dr. Brooks of this
== END 2023-01-31 11:42 | disposition home or self-care (01) ==
PROVIDERS: Emergency Provider Family Medicine; PCP Family Medicine
DX: H61.21 Impacted cerumen, right ear (principal); H81.399 Other peripheral vertigo, unspecified ear
CPT/HCPCS: 36415; 70450; 70496; 70498; 80048; 81001; 82565; 83735; 84484; 85025; 93005; 96374; 96375; 99284; 99285; J2405; J3360; J7030; J7120; Q9967

== ENCOUNTER 2023-04-20 23:54 | Inpatient (IN) | payer MEDICARE, SELFPAY ==
[2023-04-21] VITALS (29 sets, daily range): BP systolic 122–170; BP diastolic 54–82; PULSE 77–104; RESP 12–20; TEMP 36.6–37.3; O2SAT 90–97; BMI 18.9
--- NOTE | 2023-04-21 00:14 | CT_ITS ---
Patient: MARCO A ORDONEZ Facility:?[facility] Patient ID:?[id number] Site Patient ID:?[id number] Site :?1955 Study:?CT-Spine Cervical without contrast-04/21/2023 1:41:53 AM Ordering Physician:Jasmin Mccauley Final Report: INDICATION: Fall, loss of consciousness, Plavix, cervical spine injury TECHNIQUE: CT cervical spine without i.v. contrast. Coronal and sagittal reformats were obtained. COMPARISON: None FINDINGS: Alignment: Grade 1 anterolisthesis C4-5 is present. Bone: No acute fractures or aggressive bone lesions are identified. Disc: Severe degenerative disc narrowing is present C5-6. Scattered facet osteoarthritis is noted bilaterally. Soft tissue: The prevertebral soft tissues are unremarkable in appearance. Mild centrilobular emphysema is present in both apices. Bilateral calcified carotid plaques are noted. IMPRESSION: 1. No acute osseous injuries are identified. Dictated by Wilfred Davila MD @ 04/21/2023 1:51:55 AM Please note that all CT scans at this facility use dose modulation, iterative reconstruction, and/or weight-based dosing when appropriate to reduce radiation dose to as low as reasonably achievable. Dictated by: Wilfred Davila MD @ 04/21/2023 01:54:04 Signed by:?Wilfred Davila MD @04/21/2023 1:54:04 AM (Electronic Signature)
--- NOTE | 2023-04-21 00:14 | CT_ITS ---
Patient: MARCO A ORDONEZ Facility:?[facility] R[facility] Patient ID:?[id number] Site Patient ID:?[id number]. Site :?1955 Study:?CT-Neck Angio WITH 95CC [id number] CONTRAST STROKE [place]-04/21/2023 1:43:58 AM Ordering Physician:?Tone Mccauley Final Report: DATE: 04/21/2023 CLINICAL HISTORY: Patient with loss of consciousness. TECHNIQUE: Standard helical CT image acquisition of the neck up to the skull base after bolus intravenous contrast enhancement. 2D and 3D MIP images for post-processing were performed and interpreted on an independent workstation and 3D images were permanently archived. COMPARISON: CT same day. FINDINGS: There is moderate narrowing at the origin of the left subclavian artery. The origins of the rest of the great vessels from the aortic arch are patent. The origin of the right vertebral artery is patent. The origin of the left vertebral artery is patent. The common carotid arteries are patent. There is plaque without stenosis at the origin of the right internal carotid artery by NASCET criteria. There is a moderate (68%) stenosis at the origin of the left internal carotid artery by NASCET criteria. This is caused by calcified and non-calcified plaque with a 1.2mm residual lumen. The rest of the cervical segments of the internal carotid arteries are patent up to the skull base. The right vertebral artery is dominant. The cervical segments of the vertebral arteries are patent up to the skull base. The visualized lung apices are unremarkable. The thyroid gland is unremarkable. The soft tissues of the neck are unremarkable. There are degenerative changes in the cervical spine. IMPRESSION: 1. Moderate (68%) stenosis at the origin of the left internal carotid artery by NASCET criteria caused by calcified and non-calcified plaque with a 1.2mm residual lumen. 2. Moderate left subclavian artery origin stenosis. Please note that all CT scans at this facility use dose modulation, iterative reconstruction, and/or weight-based dosing when appropriate to reduce radiation dose to as low as reasonably achievable. Dictated by Tye Nuñez MD @ 04/21/2023 6:16:16 AM Signed by:?Tye Nuñez MD @04/21/2023 6:16:16 AM (Electronic Signature)
--- NOTE | 2023-04-21 00:14 | CRLHL7_ITS ---
For Patients: As a result of the Century Cures Act, medical imaging exams and procedure reports are released immediately into your electronic medical record. You may view this report before your referring provider. If you have questions, please contact your health care provider. INDICATION: Stroke. TECHNIQUE: Head CT without contrast. COMPARISON: January 2023. FINDINGS: Periventricular areas of low attenuation, likely due to chronic small vessel ischemic changes. Generalized volume loss. No intracranial hemorrhage. No discrete mass or mass effect. There is no midline shift. The basilar cisterns are patent. No hydrocephalus. The nevarez-white matter interface is otherwise preserved. No acute osseous abnormality. No extracalvarial soft tissue abnormality. The mastoid air cells are clear. The paranasal sinuses are well-aerated. The visualized portions of the orbits and globes are unremarkable. IMPRESSION: No acute intracranial process per unenhanced head CT. Please note that all CT scans at this facility use dose modulation, iterative reconstruction, and/or weight-based dosing when appropriate to reduce radiation dose to as low as reasonably achievable. Dictated by Isidoro Gordon MD @ 04/21/2023 12:43:36 AM (Electronically Signed)
--- NOTE | 2023-04-21 00:14 | CT_ITS ---
Patient: MARCO A ORDONEZ Facility:?[facility] R[facility] Patient ID:?[id number] Site Patient ID:?[id number]. Site :?1955 Study:?CT-Head Angio WITH 95CC [id number] CONTRAST STROKE [place]-04/21/2023 1:43:12 AM Ordering Physician:?Tone Mccauley Final Report: DATE: 04/21/2023 CLINICAL HISTORY: Patient with loss of consciousness. TECHNIQUE: Standard helical CT image acquisition through the intracranial circulation following intravenous administration of contrast material with bolus tracking. 2D and 3D MIP images for post-processing were performed and interpreted on an independent workstation and 3D images were permanently archived. COMPARISON: CT same day. FINDINGS: There is no cerebral aneurysm or large vessel occlusion. There is mild intracranial atherosclerosis in the carotid siphons bilaterally and left vertebral artery. The right middle cerebral artery and its branches are normal. The right anterior cerebral artery and its branches are normal. The left middle cerebral artery and its branches are normal. The left anterior cerebral artery and its branches are normal. The anterior communicating artery is well visualized and appears normal. The right vertebral artery and PICA are normal. The vertebral arteries are codominant. The basilar artery is patent and appears normal. The right posterior cerebral artery is normal. The left posterior cerebral artery is normal. The visualized venous structures are patent. IMPRESSION: 1. No cerebral aneurysm or large vessel occlusion. 2. Mild intracranial atherosclerosis in the carotid siphons bilaterally and left vertebral artery. Please note that all CT scans at this facility use dose modulation, iterative reconstruction, and/or weight-based dosing when appropriate to reduce radiation dose to as low as reasonably achievable. Dictated by Tye Nuñez MD @ 04/21/2023 6:23:53 AM Signed by:?Tye Nuñez MD @04/21/2023 6:23:53 AM (Electronic Signature)
[2023-04-21] MEDS: 0.9 % SODIUM CHLORIDE 500 ML 500 ML IV ×2 (00:15→11:21)
--- NOTE | 2023-04-21 00:18 | ED.GENADULT ---
HPI - General Adult General Time Seen by Provider: 00:18 Date Seen: 04/21/23 Chief complaint: Fall/Minor Trauma Stated complaint: fall Time Seen by Provider: 04/21/23 00:22 Source: patient, EMS and RN notes reviewed Mode of arrival: EMS Limitations: no limitations and altered mental status History of Present Illness HPI narrative: Bella is a 67-year-old female with history diabetes, hypertension, past history of dizziness who is brought to the emergency room by [facility] for evaluation of from a fall. Nursing staff alerts me that they are concerned regarding the possibility of a stroke and we are at 5.5 hours and thus a stroke code is called. Bella tells me that she fell at home. She does agree that she was feeling bad before the fall but is unable to describe what was bothering her. She states that she laid on the floor for about 1 hour. She denies any loss of consciousness. She was able to get up after an hour and call 911. When I ask her where she hurts she states her head hurts. She also agrees that her neck hurts. As well as her buttocks. She denies chest pain. She is a smoker and she has continued to smoke even though she has actually been feeling weak and describes multiple falls over the past few weeks. Bella denies double vision but does agree that she feels dizzy. She denies fevers at home. She states that she has had 1 loose stool recently. She denies numbness or tingling of the extremities. Related Data Home Medications Medication Instructions Recorded Confirmed alendronate 70 mg tablet 70 mg PO .weekly 04/03/22 04/03/22 amlodipine 10 mg tablet 10 mg PO DAILY 04/03/22 04/03/22 atorvastatin 10 mg tablet 10 mg PO DAILY 04/03/22 01/31/23 gabapentin 600 mg tablet 600 - 900 mg PO BID 04/03/22 01/31/23 insulin glargine 100 unit/mL 19 unit subcut HS 04/03/22 01/31/23 subcutaneous solution (Lantus U-100 Insulin) insulin regular human 100 unit/mL 7 - 11 unit subcut TID 04/03/22 04/03/22 injection solution (Novolin R Regular U-100 Insulin) lacosamide 100 mg tablet 100 mg PO BID 04/03/22 01/31/23 levetiracetam 750 mg tablet 750 mg PO BID 04/03/22 01/31/23 lisinopril 10 mg tablet 10 mg PO DAILY 04/03/22 01/31/23 metoprolol succinate 200 mg 200 mg PO DAILY 04/03/22 01/31/23 tablet,extended release 24 hr sertraline 50 mg tablet 50 mg PO DAILY 04/03/22 01/31/23 aspirin 81 mg tablet,delayed 81 mg PO DAILY 01/31/23 01/31/23 release (Adult Aspirin Regimen) clopidogrel 75 mg tablet 75 mg PO DAILY 01/31/23 01/31/23 Previous Rx's Medication Instructions Recorded carbamide peroxide 6.5 % ear drops 5 drp Otic (ear-right) DAILY 5 01/31/23 (Ear Wax Drops) days #20 mL diazepam 5 mg tablet (Valium) 2.5 - 5 mg (0.5 - 1 x 5 mg) PO BID 01/31/23 PRN dizziness #6 tabs meclizine 25 mg tablet 25 mg PO TID #15 tabs 01/31/23 Allergies Allergy/AdvReac Type Severity Reaction Status Date / Time No Known Drug Allergies Allergy Verified 04/03/22 10:13 Review of Systems Status of ROS: Reports: 10 or more systems reviewed and unremarkable except as noted in History and below Const: Reports: fatigue; Denies: fever or chills Eyes: Denies: change in vision or blurry vision ENMT: Reports: neck pain; Denies: throat pain, throat swelling, difficulty swallowing, hoarseness, ear discharge or nasal discharge Cardio: Reports: lightheadedness and shortness of breath with exertion; Denies: chest pain, palpitations or swelling of feet/ankles Resp: Reports: shortness of breath; Denies: cough or wheezing GI: Denies: abdominal pain, nausea, vomiting, diarrhea or difficulty swallowing : Denies: painful urination Musculo: Reports: neck pain; Denies: back pain Integ/Breast: Denies: rash Neuro: Reports: weakness in extremities; Denies: headache, numbness in extremities or slurred speech Endo: Reports: fatigue Allergy/Immuno: Denies: throat swelling or wheezing PFSH PFSH Social History Smoking Status: Current every day smoker Do you use any of these nicotine containing products: None Second hand tobacco smoke exposure: No How often do you have a drink containing alcohol: 2-3 times a week How often do you have six or more drinks on one occasion: Never AUDIT-C Alcohol total score: 3 Non-prescribed substance use: denies use service: No Exam Narrative: Exam Narrative: GCS of 14-I had to ask her to open her eyes. Cachectic in appearance. Answers most questions but then is somewhat confused. EOM is full. Pupils equal round reactive. Head is atraumatic. She does agree that she has pain when I palpate midline cervical spine and thus a collar is placed. Face is symmetrical with eyebrow raise and smile. Neck is otherwise supple. Heart with a tachycardic rate but normal rhythm. Lungs are with decreased breath sounds throughout decreased slightly more on the right lung base. No crackles are auscultated. Abdomen is soft nontender. She is moving all of her extremities. Palpation down thoracic and lumbar spine without discomfort. No point tenderness noted on buttocks. Patient appears very pale to me. Const: Vital Signs, click to edit/add: Vital Signs - 24 hr 04/21/23 00:27 04/21/23 00:30 04/21/23 00:48 Temperature 99.2 F Pulse Rate Pulse Rate [Pulse Oximeter] 104 H 104 H 100 Respiratory Rate 16 16 16 Blood Pressure Blood Pressure [Ri ght Upper Arm] 148/66 H 145/81 H 159/66 H Pulse Oximetry 94 94 94 Oxygen Delivery Me thod Room Air Room Air Room Air Oxygen Flow Rate 04/21/23 00:49 04/21/23 01:01 04/21/23 01:01 Temperature Pulse Rate 102 H 98 98 Pulse Rate [Pulse Oximeter] Respiratory Rate 16 12 12 Blood Pressure 145/81 H 159/66 H 159/66 H Blood Pressure [Ri ght Upper Arm] Pulse Oximetry 93 93 93 Oxygen Delivery Me thod Oxygen Flow Rate 04/21/23 01:01 04/21/23 01:01 04/21/23 01:26 Temperature Pulse Rate 98 98 100 Pulse Rate [Pulse Oximeter] Respiratory Rate 16 16 16 Blood Pressure 159/66 H 159/66 H 170/75 H Blood Pressure [Ri ght Upper Arm] Pulse Oximetry 93 93 91 Oxygen Delivery Me thod Oxygen Flow Rate 04/21/23 01:31 04/21/23 01:51 04/21/23 01:54 Temperature Pulse Rate 100 101 H 100 Pulse Rate [Pulse Oximeter] Respiratory Rate 16 12 16 Blood Pressure 145/82 H 143/65 H 155/63 H Blood Pressure [Ri ght Upper Arm] Pulse Oximetry 94 94 94 Oxygen Delivery Me thod Oxygen Flow Rate 04/21/23 02:02 04/21/23 02:11 04/21/23 02:21 Temperature Pulse Rate 102 H 97 99 Pulse Rate [Pulse Oximeter] Respiratory Rate 16 16 16 Blood Pressure 150/67 H 146/64 H 154/63 H Blood Pressure [Ri ght Upper Arm] Pulse Oximetry 91 92 91 Oxygen Delivery Me thod Oxygen Flow Rate 04/21/23 02:21 04/21/23 02:27 Temperature Pulse Rate 99 Pulse Rate [Pulse Oximeter] Respiratory Rate Blood Pressure 154/63 H Blood Pressure [Ri ght Upper Arm] Pulse Oximetry 91 95 Oxygen Delivery Me thod Nasal Cannula Oxygen Flow Rate 2 Documenting provider has reviewed patient's vital signs: yes Course Course ED Course: At this time differential diagnosis does include acute stroke, anemia, COVID, pneumonia. Will continue with stroke code given her confusion, frequent falls. CT of the head CTA of head and neck ordered. Will also obtain CT cervical spine given the discomfort and recent falls. CBC, comprehensive, lactate, CRP, lipase, urinalysis pending. Chest x-ray also will be ordered. Reevaluation(s) Reevaluation #1: 0220: Lab results just returned at this time with elevated lactate at 2.0, [place] [address] and lactate 2.0. Thus concerns regarding sepsis related to pneumonia. Patient will start on Zosyn 3.375 g, vancomycin 750 mg. Will also give additional L of fluid Reevaluation #2: Patient color appear to be improved. Patient notes that she is notice some buttock pain and upon further examination she has discomfort noted in the right groin. Will add x-ray of the pelvis. Troponin elevated at 0.09. Repeat troponin and lactate scheduled for 0350. Vital Signs Vital signs: Initial Vital Signs Temperature 99.2 F 04/21/23 00:27 Temperature Source Temporal Artery Scan 04/21/23 00:27 Pulse Rate 104 H 04/21/23 00:27 Respiratory Rate 16 04/21/23 00:27 Blood Pressure 148/66 H 04/21/23 00:27 Blood Pressure Mean 93 04/21/23 00:27 Blood Pressure Position Supine 04/21/23 00:27 Pulse Oximetry 94 04/21/23 00:27 Oxygen Delivery Method Room Air 04/21/23 00:27 Vital Signs Temperature 99.2 F 04/21/23 00:27 Pulse Rate 104 H 04/21/23 00:27 Respiratory Rate 16 04/21/23 00:27 Blood Pressure 148/66 H 04/21/23 00:27 Pulse Oximetry 94 04/21/23 00:27 Oxygen Delivery Method Room Air 04/21/23 00:27 Temperature 99.2 F 04/21/23 00:27 Pulse Rate 99 04/21/23 02:21 Respiratory Rate 16 04/21/23 02:21 Blood Pressure 154/63 H 04/21/23 02:21 Pulse Oximetry 95 04/21/23 02:27 Oxygen Delivery Method Nasal Cannula 04/21/23 02:27 Oxygen Flow Rate 2 04/21/23 02:27 Medical Decision Making MDM Narrative Medical decision making narrative: 1. Sepsis -patient has tachycardia, elevated white count, pneumonia as well as lactate of 2.0. Given these findings she is treated for sepsis with a total of 1500 mL of normal saline, Zosyn and vancomycin. Procalcitonin was added to the labs. 2.Pneumonia-O2 sats 91%, chest x-ray clearly shows a right-sided pneumonia new since previous x-ray. Patient placed on nasal cannula oxygen and antibiotics. 3. Hyperglycemia-blood sugar 418. Patient given 12 units of regular insulin. 4. Fall-head and cervical spine without evidence of fracture. Chest x-ray without evidence of rib fracture. Pelvic x-ray without evidence of fracture. 5. Elevated troponin-likely stress reaction secondary to sepsis. Repeat troponin at 0350. 6. Weakness-patient notes that she has actually been falling a few times in the last few weeks. Will likely need OT/PT evaluation while in the hospital. 7. Disposition-at admit to [facility] under the care of her eyes and hospitalist. Medical Records Medical records reviewed: Yes I reviewed the patient's medical records Lab Data Lab results reviewed: Yes I reviewed the patient's lab results Labs: Lab Results 04/21/23 04/21/23 04/21/23 Range/Units 00:01 00:32 01:50 WBC 20.31 H (4.50-11.00) K/uL RBC 3.66 L (4.00-5.20) m/uL Hgb 11.1 L (12.0-16.0) gm/dL Hct 33.4 (33.0-51.0) % MCV 91 (80-100) fL MCH 30 (26-34) pg MCHC 33 (32-36) gm/dL RDW Coeff of Alicia 11.8 (11.5-15.5) % Plt Count 374 (140-440) K/uL Neut % (Auto) 88.7 H (42.0-72.0) % Lymph % (Auto) 3.2 L (20-44) % [place] % (Auto) 7.4 (0.0-11.0) % Eos % (Auto) 0.0 (0.0-7.0) % Baso % (Auto) 0.0 (0.0-3.0) % Neut # (Auto) 18.00 H (1.7-7.0) K/uL Lymph # (Auto) 0.60 L (0.90-2.90) K/uL [place] # (Auto) 1.50 H (0.00-0.90) K/UL Eos # (Auto) 0.00 (0.00-0.50) K/uL Baso # (Auto) 0.00 (0.00-0.30) K/uL Abs Immat Gran (auto) 0.10 (0.00-0.30) K/uL Imm/Tot Granulo (auto) 0.7 % Sodium 126 L (135-149) mmol/L Potassium 3.5 L (3.6-5.1) mmol/L Chloride 93 L (96-114) mmol/L Carbon Dioxide 20 (20-32) mmol/L Anion Gap 13 (7-15) mEq/L BUN 38 H (7-30) mg/dL Creatinine 0.8 (0.5-1.5) mg/dL Estimated GFR 81 ml/min Glucose 416 H* (60-115) mg/dL Lactate 2.0 H (0.5-1.9) mmol/L Calcium 8.3 L (8.4-10.6) mg/dL Total Bilirubin 0.9 (0.1-1.5) mg/dL AST 47 H (12-35) U/L ALT 23 (4-35) U/L Alkaline Phosphatase 236 H (40-150) U/L C-Reactive Protein 22.2 H (0.5-1.0) mg/dL Total Protein 6.6 (6.0-8.3) g/dL Albumin 3.2 L (3.3-5.0) g/dL Lipase 36 (23-300) U/L Procalcitonin 3.57 H (<0.50) ng/mL SARS-CoV-2 (PCR) Negative SARS-CoV-2 (Negative) Influenza Type A (PCR) Negative PCR FLU A (Negative) Influenza Type B (PCR) Negative PCR FLU B (Negative) RSV (PCR) Negative PCR RSV (Negative) Lab Acknowledgement POC Troponin I 0.09 H (0.01-0.04) ng/ml 04/21/23 Range/Units 02:19 WBC (4.50-11.00) K/uL RBC (4.00-5.20) m/uL Hgb (12.0-16.0) gm/dL Hct (33.0-51.0) % MCV (80-100) fL MCH (26-34) pg MCHC (32-36) gm/dL RDW Coeff of Alicia (11.5-15.5) % Plt Count (140-440) K/uL Neut % (Auto) (42.0-72.0) % Lymph % (Auto) (20-44) % [place] % (Auto) (0.0-11.0) % Eos % (Auto) (0.0-7.0) % Baso % (Auto) (0.0-3.0) % Neut # (Auto) (1.7-7.0) K/uL Lymph # (Auto) (0.90-2.90) K/uL [place] # (Auto) (0.00-0.90) K/UL Eos # (Auto) (0.00-0.50) K/uL Baso # (Auto) (0.00-0.30) K/uL Abs Immat Gran (auto) (0.00-0.30) K/uL Imm/Tot Granulo (auto) % Sodium (135-149) mmol/L Potassium (3.6-5.1) mmol/L Chloride (96-114) mmol/L Carbon Dioxide (20-32) mmol/L Anion Gap (7-15) mEq/L BUN (7-30) mg/dL Creatinine (0.5-1.5) mg/dL Estimated GFR ml/min Glucose (60-115) mg/dL Lactate (0.5-1.9) mmol/L Calcium (8.4-10.6) mg/dL Total Bilirubin (0.1-1.5) mg/dL AST (12-35) U/L ALT (4-35) U/L Alkaline Phosphatase (40-150) U/L C-Reactive Protein (0.5-1.0) mg/dL Total Protein (6.0-8.3) g/dL Albumin (3.3-5.0) g/dL Lipase (23-300) U/L Procalcitonin (<0.50) ng/mL SARS-CoV-2 (PCR) (Negative) Influenza Type A (PCR) (Negative) Influenza Type B (PCR) (Negative) RSV (PCR) (Negative) Lab Acknowledgement Test Added POC Troponin I (0.01-0.04) ng/ml Imaging Data CT scan - head: Attestation: I have reviewed the pertinent imaging results. My impression: I do not note any acute changes. Radiologist's impression: Periventricular areas of low attenuation, likely due to chronic small vessel ischemic changes. Generalized volume loss. No intracranial hemorrhage. No discrete mass or mass effect. There is no midline shift. The basilar cisterns are patent. No hydrocephalus. The nevarez-white matter interface is otherwise preserved. No acute osseous abnormality. No extracalvarial soft tissue abnormality. The mastoid air cells are clear. The paranasal sinuses are well-aerated. The visualized portions of the orbits and globes are unremarkable. IMPRESSION: No acute intracranial process per unenhanced head CT. Cervical spine CT: Attestation: I have reviewed the pertinent imaging results. Chest x-ray: Attestation: I have reviewed the pertinent imaging results. My impression: Right lower lobe pneumonia Radiologist's impression: Cardiovascular and mediastinum: Normal heart size. Atherosclerotic thoracic aorta. Lungs and pleural spaces: Masslike area of consolidation within medial right lung base. Possible additional smaller left basilar retrocardiac airspace opacity. No pleural effusion or pneumothorax. Bones and soft tissues: Unremarkable for age. IMPRESSION: Masslike area of consolidation within the medial right lung base, may represent pneumonia in the correct clinical setting. An underlying pulmonary mass or nodule cannot be excluded. If there is concern for infection, recommend follow-up imaging after treatment to ensure resolution. If there is no concern for infection, recommend chest CT for further evaluation. Possible additional focus of infection versus scarring or atelectasis within the retrocardiac left lower lobe. Head and neck angio: Attestation: I have reviewed the pertinent imaging results. Radiologist's impression: 1. The [place] is unremarkable with no significant stenosis, occlusion, or aneurysm identified. 2. Calcified plaque present in the carotid bulbs bilaterally with less than 50 percent diameter stenosis. The neck vessels shows no evidence of dissection, significant stenosis or occlusion in the common or internal carotid arteries, vertebral arteries, or visualized great vessels of the chest. 3. Mild nodular infiltrates are present in the posterior right upper lobe Pelvis x-ray: Attestation: I have reviewed the pertinent imaging results. My impression: No fractures noted Radiologist's impression: Bone: No acute fractures or aggressive bone lesions are identified. Severe diffuse osteopenia is noted. The sacrum is obscured by dense excreted contrast within the bladder and cannot be evaluated. Joint: The hip joints are unremarkable. The visualized sacroiliac joints are unremarkable in appearance. The pubic symphysis is normal in appearance. Soft tissue: Unremarkable. Moderate gaseous distention of small bowel and colonic loops are noted. No radiopaque foreign bodies are seen. IMPRESSION: 1. No acute osseous injuries or abnormalities are noted. ECG Data Attestation: I personally reviewed and interpreted this ECG as follows: Interpretation: EKG by my read shows sinus tachycardia at a rate of 101. Left bundle-branch block is present. Critical Care Time Critical Care Time Critical Care Time: Yes Attestation: The patient required my highest level preparedness to intervene emergently and I personally spent this critical care time directly and personally managing the patient. This critical care time included: Obtaining a history; Examining the patient; Pulse oximetry; Ordering and reviewing of studies; Arranging urgent treatment with development of a management plan; Evaluation of patients response to treatment; Frequent reassessment discussions with other providers. This critical care time was performed to assess and manage the high probability of imminent life-threatening deterioration that could result in multiorgan failure. It was exclusive of separate billable procedures and treating other patients and teaching time. Total Critical Care Time in Minutes: 45 Discharge Plan Discharge Clinical Impression: Acute hyperglycemia, Elevated troponin Pneumonia Qualifiers: Pneumonia type: due to unspecified organism Laterality: right Lung location: lower lobe of lung Qualified Code(s): J18.9 - Pneumonia, unspecified organism Patient Disposition: Admitted As Observation
--- NOTE | 2023-04-21 00:19 | CRLHL7_ITS ---
For Patients: As a result of the Century Cures Act, medical imaging exams and procedure reports are released immediately into your electronic medical record. You may view this report before your referring provider. If you have questions, please contact your health care provider. INDICATION: Shortness of breath TECHNIQUE: Chest 1 view. Permanently recorded images are archived. COMPARISON: 04/03/2022 FINDINGS: Cardiovascular and mediastinum: Normal heart size. Atherosclerotic thoracic aorta. Lungs and pleural spaces: Masslike area of consolidation within medial right lung base. Possible additional smaller left basilar retrocardiac airspace opacity. No pleural effusion or pneumothorax. Bones and soft tissues: Unremarkable for age. IMPRESSION: Masslike area of consolidation within the medial right lung base, may represent pneumonia in the correct clinical setting. An underlying pulmonary mass or nodule cannot be excluded. If there is concern for infection, recommend follow-up imaging after treatment to ensure resolution. If there is no concern for infection, recommend chest CT for further evaluation. Possible additional focus of infection versus scarring or atelectasis within the retrocardiac left lower lobe. Dictated by Jorden Sexton MD @ 04/21/2023 1:56:21 AM (Electronically Signed)
[2023-04-21 01:00] LABS: PCR FLU A Negative PCR FLU A (Negative); PCR FLU B Negative PCR FLU B (Negative); PCR RSV Negative PCR RSV (Negative)
[2023-04-21 01:01] LABS: SARS PCR* Negative SARS-CoV-2 (Negative)
--- NOTE | 2023-04-21 02:02 | PC.NURSE ---
C spine cleared by , C color removed
[2023-04-21 02:13] LABS: Hematocrit 33.4 % (33.0-51.0); Hemoglobin* 11.1 gm/dL (12.0-16.0); Immature Granulocytes Pct Auto 0.7 %; Lymphocytes Percent Auto 3.2 % (20-44); Mean Corpuscular HGB Conc 33 gm/dL (32-36); Mean Corpuscular Hemoglobin 30 pg (26-34); Mean Corpuscular Volume 91 fL (80-100); Monocytes Percent Auto 7.4 % (0.0-11.0); Neutrophils Percent Auto 88.7 % (42.0-72.0); Platelet Count* 374 K/uL (140-440); RDW Coefficient of Variation % 11.8 % (11.5-15.5); Red Blood Count 3.66 m/uL (4.00-5.20); White Blood Count* 20.31 K/uL (4.50-11.00)
--- NOTE | 2023-04-21 02:13 | PC.NURSE ---
Initial GCS 14. Stroke code called/MD in room 0015, Neuro paged [id number] Neurologist - T[place], Pt to CT 0027, CTA 0110, back from CTA 0125
[2023-04-21 02:18] LABS: Slide Review Reflex No
[2023-04-21 02:18] LABS: Troponin, Point-of-Care* 0.09 ng/ml (0.01-0.04)
[2023-04-21 02:26] LABS: Albumin* 3.2 g/dL (3.3-5.0); Chloride* 93 mmol/L (96-114); Sodium* 126 mmol/L (135-149)
[2023-04-21 02:27] LABS: Potassium* 3.5 mmol/L (3.6-5.1)
[2023-04-21 02:29] LABS: Alkaline Phosphatase* 236 U/L (40-150); Anion Gap 13 mEq/L (7-15); Aspartate Amino Transferase* 47 U/L (12-35); Bilirubin Total* 0.9 mg/dL (0.1-1.5); Carbon Dioxide* 20 mmol/L (20-32); Creatinine* 0.8 mg/dL (0.5-1.5); Estimated Glomerular Filt Rate 81 ml/min; Total Protein* 6.6 g/dL (6.0-8.3)
[2023-04-21 02:30] LABS: Alanine Aminotransferase* 23 U/L (4-35); Blood Urea Nitrogen* 38 mg/dL (7-30); Calcium* 8.3 mg/dL (8.4-10.6); Lipase* 36 U/L (23-300)
--- NOTE | 2023-04-21 02:42 | CRLHL7_ITS ---
For Patients: As a result of the Century Cures Act, medical imaging exams and procedure reports are released immediately into your electronic medical record. You may view this report before your referring provider. If you have questions, please contact your health care provider. INDICATION: Fall, right buttock pelvic pain, injury TECHNIQUE: Pelvis radiograph 1 view COMPARISON: None FINDINGS: Bone: No acute fractures or aggressive bone lesions are identified. Severe diffuse osteopenia is noted. The sacrum is obscured by dense excreted contrast within the bladder and cannot be evaluated. Joint: The hip joints are unremarkable. The visualized sacroiliac joints are unremarkable in appearance. The pubic symphysis is normal in appearance. Soft tissue: Unremarkable. Moderate gaseous distention of small bowel and colonic loops are noted. No radiopaque foreign bodies are seen. IMPRESSION: 1. No acute osseous injuries or abnormalities are noted. Dictated by Wilfred Davila MD @ 04/21/2023 3:03:40 AM Dictated by: Wilfred Davila MD @ 04/21/2023 03:03:44 (Electronically Signed)
[2023-04-21 02:52] LABS: Procalcitonin* 3.57 ng/mL (<0.50)
[2023-04-21 02:53] LABS: C Reactive Protein* 22.2 mg/dL (0.5-1.0); Glucose* 416 mg/dL (60-115)
--- NOTE | 2023-04-21 02:59 | W.PM.THH&P_ITS ---
Telehealth- H&P: HPI History of Present Illness Date Seen: 04/21/23 Chief complaint: fall Narrative: Bella Jones is seen as an Interactive Telehealth visit. Bella Jones is a 67 year old female who presented to the ER after multiple falls at home. She complained of head and neck pain upon arrival. Per ER physician, she was found by her son and had been down for about 1 hour. Patient states she felt twice in the bathroom last night and multiple times during the day. These falls were associated with dizziness and lightheadedness but she denies any loss of consciousness. She states she hit her head several times. Her blood sugars have been in the 400 range over the past week with poor oral intake. She admits to cough and shortness of breath when she coughs but not with activity, epigastric abdominal pain, nausea, vomiting, episodes of diarrhea beginning yesterday, black stools 2 days ago. She denies fevers, chills, sweating or headaches. She denies any tobacco use and admits to a couple of drinks per week but not to drink alcohol prior to falling. Bella suspects her medications may contribute to her falls but is unable to specify which medications. Seizure disorder history on Keppra without recent seizure activity, the last was about 6 months ago. ER assessment: Noncontrasted head CT was negative for acute findings, CT spine reconstructed images were negative for fracture. Chest x-ray showed right lower lobe pneumonia with masslike consolidation. WBC 20,000, lactate 2, procalcitonin 3.5, no fever. Sodium 126, potassium 3.5, glucose 418. Troponin slightly elevated 0.09, EKG showed sinus tachycardia and left bundle branch block. She was tachycardic on presentation. Treatment included IV fluids, Zosyn and vancomycin for sepsis. Review of Systems Status of ROS: Reports: 10 or more systems reviewed and unremarkable except as noted in History and below [facility] Social History Smoking Status: Current every day smoker Do you use any of these nicotine containing products: None Second hand tobacco smoke exposure: No How often do you have a drink containing alcohol: 2-3 times a week How often do you have six or more drinks on one occasion: Never AUDIT-C Alcohol total score: 3 Non-prescribed substance use: denies use service: No Meds Home Medications and Allergies Home Medications Medication Instructions Recorded Confirmed Type alendronate 70 mg tablet 70 mg PO .weekly 04/03/22 04/03/22 History amlodipine 10 mg tablet 10 mg PO DAILY 04/03/22 04/03/22 History atorvastatin 10 mg tablet 10 mg PO DAILY 04/03/22 01/31/23 History gabapentin 600 mg tablet 600 - 900 mg PO BID 04/03/22 01/31/23 History insulin glargine 100 unit/mL 19 unit subcut HS 04/03/22 01/31/23 History subcutaneous solution (Lantus U-100 Insulin) insulin regular human 100 unit/mL 7 - 11 unit subcut TID 04/03/22 04/03/22 History injection solution (Novolin R Regular U-100 Insulin) lacosamide 100 mg tablet 100 mg PO BID 04/03/22 01/31/23 History levetiracetam 750 mg tablet 750 mg PO BID 04/03/22 01/31/23 History lisinopril 10 mg tablet 10 mg PO DAILY 04/03/22 01/31/23 History metoprolol succinate 200 mg 200 mg PO DAILY 04/03/22 01/31/23 History tablet,extended release 24 hr sertraline 50 mg tablet 50 mg PO DAILY 04/03/22 01/31/23 History aspirin 81 mg tablet,delayed 81 mg PO DAILY 01/31/23 01/31/23 History release (Adult Aspirin Regimen) clopidogrel 75 mg tablet 75 mg PO DAILY 01/31/23 01/31/23 History Allergies Allergy/AdvReac Type Severity Reaction Status Date / Time No Known Drug Allergies Allergy Verified 04/03/22 10:13 Exam Narrative Exam Narrative: Physical Exam GENERAL: ?Elderly female, alert with gentle stimulation but very sleepy, no active distress HEENT: pupils are equal round and reactive to light, extraocular movements are grossly within normal limits and oral mucosa is moist. NECK: Supple without lymphadenopathy or thyromegaly according to nursing staff examination observation HEART: Regular rate and rhythm without any rubs, murmurs, or gallops. LUNGS: Clear to auscultation bilaterally, no tachypnea on room air ABDOMEN: Observation from nurse assisted exam, abdomen appears soft, nontender, and nondistended with Positive bowel sounds noted. 2 areas of old herniation in the mid abdomen are soft. EXTREMITIES: Thin, no dependent edema, no erythema or calf tenderness, no cyanotic changes SKIN:? Observed warm and dry with color normal, no jaundice NEURO: Alert, oriented, speech is clear, no hearing deficit, no peripheral tremors, motor strength is within normal limits in the upper lower extremities bilaterally PSYCH: Somewhat poor historian but very fatigued this morning, stable mood Const Vital Signs, click to edit/add: Vital Signs - 24 hr 04/21/23 00:27 04/21/23 00:30 04/21/23 00:48 Temperature 99.2 F Pulse Rate Pulse Rate [Pulse Oximeter] 104 H 104 H 100 Respiratory Rate 16 16 16 Blood Pressure Blood Pressure [Right Upper Arm] 148/66 H 145/81 H 159/66 H Pulse Oximetry 94 94 94 Oxygen Delivery Method Room Air Room Air Room Air Oxygen Flow Rate 04/21/23 00:49 04/21/23 01:01 04/21/23 01:01 Temperature Pulse Rate 102 H 98 98 Pulse Rate [Pulse Oximeter] Respiratory Rate 16 12 12 Blood Pressure 145/81 H 159/66 H 159/66 H Blood Pressure [Right Upper Arm] Pulse Oximetry 93 93 93 Oxygen Delivery Method Oxygen Flow Rate 04/21/23 01:01 04/21/23 01:01 04/21/23 01:26 Temperature Pulse Rate 98 98 100 Pulse Rate [Pulse Oximeter] Respiratory Rate 16 16 16 Blood Pressure 159/66 H 159/66 H 170/75 H Blood Pressure [Right Upper Arm] Pulse Oximetry 93 93 91 Oxygen Delivery Method Oxygen Flow Rate 04/21/23 01:31 04/21/23 01:51 04/21/23 01:54 Temperature Pulse Rate 100 101 H 100 Pulse Rate [Pulse Oximeter] Respiratory Rate 16 12 16 Blood Pressure 145/82 H 143/65 H 155/63 H Blood Pressure [Right Upper Arm] Pulse Oximetry 94 94 94 Oxygen Delivery Method Oxygen Flow Rate 04/21/23 02:02 04/21/23 02:11 04/21/23 02:21 Temperature Pulse Rate 102 H 97 99 Pulse Rate [Pulse Oximeter] Respiratory Rate 16 16 16 Blood Pressure 150/67 H 146/64 H 154/63 H Blood Pressure [Right Upper Arm] Pulse Oximetry 91 92 91 Oxygen Delivery Method Oxygen Flow Rate 04/21/23 02:21 04/21/23 02:27 Temperature Pulse Rate 99 Pulse Rate [Pulse Oximeter] Respiratory Rate Blood Pressure 154/63 H Blood Pressure [Right Upper Arm] Pulse Oximetry 91 95 Oxygen Delivery Method Nasal Cannula Oxygen Flow Rate 2 Hospitalist - H&P: Result Labs Labs: Short CBC 04/21/23 Range/Units 01:50 WBC 20.31 H (4.50-11.00) K/uL Hgb 11.1 L (12.0-16.0) gm/dL Hct 33.4 (33.0-51.0) % Plt Count 374 (140-440) K/uL BMP 04/21/23 01:50 Sodium 126 L Potassium 3.5 L Chloride 93 L Carbon Dioxide 20 BUN 38 H Creatinine 0.8 Glucose 416 H* Calcium 8.3 L Liver Function 04/21/23 Range/Units 01:50 Total Bilirubin 0.9 (0.1-1.5) mg/dL AST 47 H (12-35) U/L ALT 23 (4-35) U/L Alkaline Phosphatase 236 H (40-150) U/L Albumin 3.2 L (3.3-5.0) g/dL ECG Attestation: I personally reviewed and interpreted this ECG as follows: (Sinus tachycardia, left bundle branch block, no ischemic patterns) Imaging CT scan - head: Attestation: I have reviewed the pertinent imaging results. Radiologist's impression: No acute intracranial process per unenhanced head CT. Chest x-ray: Attestation: I have reviewed the pertinent imaging results. Radiologist's impression: Masslike area of consolidation within the medial right lung base, may represent pneumonia in the correct clinical setting. An underlying pulmonary mass or nodule cannot be excluded. If there is concern for infection, recommend follow-up imaging after treatment to ensure resolution. If there is no concern for infection, recommend chest CT for further evaluation. Assessment and Plan Assessment and plan (1) Sepsis due to pneumonia: Status: Acute (2) Recurrent falls: Status: Acute (3) Hyponatremia: Status: Acute (4) Diabetes mellitus with hyperglycemia: Status: Acute (5) Elevated liver enzymes: Status: Acute (6) Elevated troponin: Status: Acute (7) Normocytic anemia: Status: Acute (8) Seizure disorder: Status: Acute Plan Sepsis due to pneumonia Zosyn and vancomycin given in the ER. 'Mass-like consolidation' per radiologist. -Continue antibiotic coverage with cefepime (due to Pseudomonas risk conferred by structural lung abnormalities) and azithromycin -MRSA screen with increased coverage if indicated -Follow blood culture results, sputum culture ordered -Incentive spirometry -Outpatient follow up CXR or CT to ensure resolution. Consider inpatient CT if poor clinical progress. Recurrent falls This appears to be a longer-term issue with multiple falls today prior to admission. No known syncopal events. -PT assessment ordered -Review home medications for potential offending agents -Telemetry monitoring -Social work consultation, likely to require at least short-term rehab Hyponatremia, hypovolemic Initial sodium 126. -Continue IVF and reassess sodium level at 0600 IDDM with hyperglycemia -Accu-Cheks, moderate dose SSI, diabetic diet -Medical reconciliation of home meds pending Elevated liver enzymes AST to ALT ratio is 2:1. Unclear alcohol use. -Monitor periodically with above treatments Elevated troponin Initial troponin 0.09, repeat ordered prior to admission, no concerning EKG changes, most consistent with septic infection. -Follow second troponin, telemetry as above, repeat EKG if indicated Normocytic anemia Patient reports black stools 2 days [employer]. Initial hemoglobin 11.1. -Check fecal occult blood and monitor hemoglobin trend Seizure disorder -Continue Keppra after doses reconciled Smoking history Patient denies any current tobacco use. Further discussion merited as this contradicts documented history. DVT prophylaxis: Enoxaparin CODE STATUS: Patient wishes for Full Code status Telehealth: Statement Statement Telehealth Visit: Today's History and Physical is provided via interactive telehealth by Brennen Pineda DO.? Patient is located at [facility].? Provider is located at [employer] [facility].? Nursing staff assisted with the patient's exam. The visit being done today meets criteria for a telehealth visit and the patient or patient?s parent/guardian is aware the visit is a telehealth visit. Camera Start Time: 03:44 Camera End Time: 04:06
[2023-04-21] MEDS: 0.9 % SODIUM CHLORIDE 1000 ml 1,000 ML IV (03:04)
[2023-04-21] MEDS: PIPERACILLIN/TAZOBACTAM 3.375 GM in 0.9 % SODIUM CHLORIDE Mini-bag 100 ML IVPB (03:04)
--- NOTE | 2023-04-21 03:29 | PC.NURSE ---
report given to Katharine REINA on med/surg, patient brought to room 256
[2023-04-21 04:48] LABS: Lactate* 1.8 mmol/L (0.5-1.9)
[2023-04-21 05:14] LABS: Sodium* 126 mmol/L (135-149)
[2023-04-21 05:42] LABS: Troponin I* < 0.01 ng/mL (0.01-0.04)
[2023-04-21] MEDS: AZITHROMYCIN 500 MG in 0.9 % SODIUM CHLORIDE 250 ml 250 ML 255 MG IVPB (06:43)
--- NOTE | 2023-04-21 07:23 | PC.NURSE ---
Shift note: Pt is afebrile, oriented to self, for admission answering same questions with the different answers. Frequent cough, brown/sorinao sputum.
[2023-04-21 08:36] LABS: Appearance Urine Slightly Cloudy (Clear); Bilirubin Urine Negative (Negative); Blood Urine Trace-intact (Negative); Color Urine Yellow (Yellow); Glucose Urine 3+ (Negative); Ketones Urine 1+ (Negative); Leukocyte Esterase Urine Negative (Negative); Nitrite Urine Negative (Negative); Protein Urine Trace (Negative); Specific Gravity Urine <= 1.005 (1.000-1.030); pH Urine 5.5 (5.0-8.5)
[2023-04-21 08:43] LABS: Bacteria Urine Few; Squamous Epithelial Cell Urine Few (None-Few)
[2023-04-21] MEDS: 0.9 % SODIUM CHLORIDE 1000 ml 1,000 ML 125 ML IV ×2 (09:16→19:40)
[2023-04-21] MEDS: CEFEPIME HCL 2 GM in 0.9 % SODIUM CHLORIDE Mini-bag 100 ML IVPB ×2 (09:17→17:26)
[2023-04-21] MEDS: METOPROLOL SUCCINATE (XL) 100 MG TAB 150 MG PO (09:21)
[2023-04-21] MEDS: ASPIRIN 81 MG TABLET EC PO (09:21)
[2023-04-21] MEDS: SERTRALINE 50 MG TABLET PO (09:22)
[2023-04-21] MEDS: CLOPIDOGREL 75 MG TABLET PO (09:22)
[2023-04-21] MEDS: GABAPENTIN 600 MG TABLET PO (09:22)
[2023-04-21] MEDS: lisinopriL 5 MG TABLET PO (09:22)
[2023-04-21] MEDS: LACOSAMIDE 50 MG TABLET 100 MG PO ×2 (09:23→21:07)
[2023-04-21] MEDS: levETIRAcetam 500 MG TABLET 750 MG PO ×2 (09:29→21:01)
[2023-04-21] MEDS: SODIUM CHLORIDE 0.9 % (FLUSH) 10 ML SYRINGE 5 ML IVF (09:35)
[2023-04-21 11:43] LABS: Chloride* 101 mmol/L (96-114); Potassium* 3.3 mmol/L (3.6-5.1); Sodium* 129 mmol/L (135-149)
[2023-04-21 11:46] LABS: Creatinine* 0.9 mg/dL (0.5-1.5); Est. Creatinine Clearance* 40.91; Estimated Glomerular Filt Rate 71 ml/min
[2023-04-21 11:47] LABS: Anion Gap 8 mEq/L (7-15); Blood Urea Nitrogen* 28 mg/dL (7-30); Calcium* 7.5 mg/dL (8.4-10.6); Carbon Dioxide* 20 mmol/L (20-32); Glucose* 346 mg/dL (60-115)
[2023-04-21 12:20] LABS: Fecal Occult Blood* Positive (Negative)
--- NOTE | 2023-04-21 12:34 | P.IMPN_ITS ---
Progress Note: A&P Assessment and plan (1) Sepsis due to pneumonia: Problem details: -Zosyn and vancomycin given in the ER. 'Mass-like consolidation' per radiologist. -Continue antibiotic coverage with cefepime (due to Pseudomonas risk conferred by structural lung abnormalities) and azithromycin -MRSA screen with increased coverage if indicated -Follow blood culture results, sputum culture ordered, strep pneumo and Legionella pending. Lactate improved, now WNL -Incentive spirometry. Patient declines Mucinex (makes her ill) -Outpatient follow up CXR or CT to ensure resolution. Consider inpatient CT if poor clinical progress. Patient denies any current tobacco use. Further discussion merited as this contradicts documented history. Status: Acute (2) Recurrent falls: Problem details: This appears to be a longer-term issue with multiple falls today prior to admission. No known syncopal events. CT/plain films without acute findings -PT/OT assessment ordered -Review home medications for potential offending agents. Gabapentin held -Telemetry monitoring -Social work consultation, likely to require at least short-term rehab -UA/UC ordered -continue wound cares for skin tears Status: Acute (3) Encephalopathy: Problem details: -acute confusion, unknown baseline -Neurology telehealth consulted. Suspect related to gabapentin neurotoxicity. Elevated BUN, dehydration. Elevated liver enzymes -recommendations as follows: Stop gabapentin, continue IV hydration, obtain ammonia level, repeat hepatic function tests, continue Keppra and Vimpat -note: Do not resume gabapentin for at least 1 week. When resumed start at 300 mg twice daily max Status: Acute (4) Seizure disorder: Problem details: -continue Keppra and Vimpat -seizure precautions Status: Acute (5) Hyponatremia: Problem details: -in setting of hypovolemia -sodium improved to 129 from 126 following IV hydration, continue to monitor -hold lisinopril Status: Acute (6) Diabetes mellitus with hyperglycemia: Problem details: -hyperglycemia in setting of acute illness. Patient reports poor readings over the last several days, otherwise baseline 120s per her report -A1c 8.8 -received 12 units insulin in ED, remains hyperglycemic. 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 Initial hemoglobin 11.1. -Fecal occult blood positive -monitor hemoglobin trend -consider General surgery consult if necessary Status: Acute (8) Elevated liver enzymes: Problem details: AST to ALT ratio is 2:1. Unclear alcohol use. Poor historian currently -Monitor periodically with above treatments, CMP in a.m. -hold statin Status: Acute (9) Hypokalemia: Problem details: -potassium 3.3, continue replacement and monitor Status: Acute (10) Hypocalcemia: Problem details: -calcium 7.5, previously 0.3, corrected calcium 8.13. Will add magnesium level -continue to monitor Status: Acute (11) Hypertension: Problem details: -stable, hold lisinopril, continue to monitor Status: Acute Time Spent With Patient Total time spent: Total time spent caring for the patient today was 45 minutes. This includes time spent for the visit reviewing the chart, time spent during the visit, time spent after the visit and documentation and planning in coordination of care. Subjective Date Seen: 04/21/23 Interval history: Patient reports feeling a little better this morning. It was reported to me that she was likely quite confused on admission and a poor historian. Currently, she denies headache or dizziness. She denies chest pain. She tells me she is chronically short of breath no worse than usual. Does not use home oxygen. Denies recent nausea vomiting or diarrhea. She is alert and oriented to self. Reported to require assist with ambulation. Exam Narrative: Exam Narrative: PHYSICAL EXAM General: Pleasant, conversant, appears in NAD HEENT: Normocephalic, atraumatic, sclera white, EOMI, oral mucosa moist Cardiovascular: RRR, S1S2. No pitting edema Pulmonary: Diffusely diminished without rhonchi, rales, expiratory wheezes. No dyspnea on room air Abdominal: Soft, nondistended, NTTP Neurological: Alert, confusion evident, cranial nerves intact, no focal findings Extremities: No gross joint deformity or swelling. AROMI. Neurovascularly intact Skin: Warm, dry. Const: Vital Signs, click to edit/add: Vital Signs - 24 hr 04/21/23 00:27 04/21/23 00:30 04/21/23 00:48 Temperature 99.2 F Pulse Rate Pulse Rate [Pulse Oximeter] 104 H 104 H 100 Respiratory Rate 16 16 16 Blood Pressure Blood Pressure [Le ft Radial Artery] Blood Pressure [Ri ght Upper Arm] 148/66 H 145/81 H 159/66 H Pulse Oximetry 94 94 94 Oxygen Delivery Me thod Room Air Room Air Room Air Oxygen Flow Rate 04/21/23 00:49 04/21/23 01:01 04/21/23 01:01 Temperature Pulse Rate 102 H 98 98 Pulse Rate [Pulse Oximeter] Respiratory Rate 16 12 12 Blood Pressure 145/81 H 159/66 H 159/66 H Blood Pressure [Le ft Radial Artery] Blood Pressure [Ri ght Upper Arm] Pulse Oximetry 93 93 93 Oxygen Delivery Me thod Oxygen Flow Rate 04/21/23 01:01 04/21/23 01:01 04/21/23 01:26 Temperature Pulse Rate 98 98 100 Pulse Rate [Pulse Oximeter] Respiratory Rate 16 16 16 Blood Pressure 159/66 H 159/66 H 170/75 H Blood Pressure [Le ft Radial Artery] Blood Pressure [Ri ght Upper Arm] Pulse Oximetry 93 93 91 Oxygen Delivery Me thod Oxygen Flow Rate 04/21/23 01:31 04/21/23 01:51 04/21/23 01:54 Temperature Pulse Rate 100 101 H 100 Pulse Rate [Pulse Oximeter] Respiratory Rate 16 12 16 Blood Pressure 145/82 H 143/65 H 155/63 H Blood Pressure [Le ft Radial Artery] Blood Pressure [Ri ght Upper Arm] Pulse Oximetry 94 94 94 Oxygen Delivery Me thod Oxygen Flow Rate 04/21/23 02:02 04/21/23 02:11 04/21/23 02:21 Temperature Pulse Rate 102 H 97 99 Pulse Rate [Pulse Oximeter] Respiratory Rate 16 16 16 Blood Pressure 150/67 H 146/64 H 154/63 H Blood Pressure [Le ft Radial Artery] Blood Pressure [Ri ght Upper Arm] Pulse Oximetry 91 92 91 Oxygen Delivery Me thod Oxygen Flow Rate 04/21/23 02:21 04/21/23 02:27 04/21/23 02:31 Temperature Pulse Rate 99 98 Pulse Rate [Pulse Oximeter] Respiratory Rate 16 Blood Pressure 154/63 H 130/69 Blood Pressure [Le ft Radial Artery] Blood Pressure [Ri ght Upper Arm] Pulse Oximetry 91 95 97 Oxygen Delivery Me thod Nasal Cannula Nasal Cannula Oxygen Flow Rate 2 2 04/21/23 02:41 04/21/23 03:01 04/21/23 03:11 Temperature Pulse Rate 90 98 Pulse Rate [Pulse Oximeter] Respiratory Rate 16 14 Blood Pressure 127/65 138/61 137/61 Blood Pressure [Le ft Radial Artery] Blood Pressure [Ri ght Upper Arm] Pulse Oximetry 92 94 Oxygen Delivery Me thod Nasal Cannula Nasal Cannula Oxygen Flow Rate 2 2 04/21/23 04:29 04/21/23 04:29 04/21/23 07:00 Temperature 98.5 F Pulse Rate Pulse Rate [Pulse Oximeter] 96 99 Respiratory Rate 20 20 20 Blood Pressure Blood Pressure [Le ft Radial Artery] 135/59 L Blood Pressure [Ri ght Upper Arm] Pulse Oximetry 93 92 Oxygen Delivery Me thod Room Air Room Air Oxygen Flow Rate 04/21/23 07:00 04/21/23 11:00 Temperature 98.1 F 97.8 F Pulse Rate Pulse Rate [Pulse Oximeter] 99 85 Respiratory Rate 20 20 Blood Pressure Blood Pressure [Le ft Radial Artery] 122/56 L 126/57 L Blood Pressure [Ri ght Upper Arm] Pulse Oximetry 92 92 Oxygen Delivery Me thod Room Air Room Air Oxygen Flow Rate Labs Labs: Laboratory Results - last 24 hr 04/21/23 04/21/23 04/21/23 00:01 00:32 01:50 WBC 20.31 H RBC 3.66 L Hgb 11.1 L Hct 33.4 MCV 91 MCH 30 MCHC 33 RDW Coeff of Alicia 11.8 Plt Count 374 Neut % (Auto) 88.7 H Lymph % (Auto) 3.2 L [place] % (Auto) 7.4 Eos % (Auto) 0.0 Baso % (Auto) 0.0 Neut # (Auto) 18.00 H Lymph # (Auto) 0.60 L [place] # (Auto) 1.50 H Eos # (Auto) 0.00 Baso # (Auto) 0.00 Abs Immat Gran (auto) 0.10 Imm/Tot Granulo (auto) 0.7 Sodium 126 L Potassium 3.5 L Chloride 93 L Carbon Dioxide 20 Anion Gap 13 BUN 38 H Creatinine 0.8 Estimated Creat Clear Estimated GFR 81 Glucose 416 H* Hemoglobin A1c 8.80 H Lactate 2.0 H Calcium 8.3 L Total Bilirubin 0.9 AST 47 H ALT 23 Alkaline Phosphatase 236 H Troponin I C-Reactive Protein 22.2 H Total Protein 6.6 Albumin 3.2 L Lipase 36 Procalcitonin 3.57 H Urine Color Urine Appearance Urine pH Ur Specific [place] Urine Protein Urine Glucose (UA) Urine Ketones Urine Blood Urine Nitrite Urine Bilirubin Urine Urobilinogen Ur Leukocyte Esterase Urine RBC Urine WBC Ur Squamous Epith Cells Urine Bacteria Stool Occult Blood SARS-CoV-2 (PCR) Negative SARS-CoV-2 Influenza Type A (PCR) Negative PCR FLU A Influenza Type B (PCR) Negative PCR FLU B RSV (PCR) Negative PCR RSV Lab Acknowledgement POC Troponin I 0.09 H 04/21/23 04/21/23 04/21/23 02:19 04:12 04:40 WBC RBC Hgb Hct MCV MCH MCHC RDW Coeff of Alicia Plt Count Neut % (Auto) Lymph % (Auto) [place] % (Auto) Eos % (Auto) Baso % (Auto) Neut # (Auto) Lymph # (Auto) [place] # (Auto) Eos # (Auto) Baso # (Auto) Abs Immat Gran (auto) Imm/Tot Granulo (auto) Sodium 126 L Potassium Chloride Carbon Dioxide Anion Gap BUN Creatinine Estimated Creat Clear Estimated GFR Glucose Hemoglobin A1c Lactate 1.8 Calcium Total Bilirubin AST ALT Alkaline Phosphatase Troponin I < 0.01 L C-Reactive Protein Total Protein Albumin Lipase Procalcitonin Urine Color Urine Appearance Urine pH Ur Specific [place] Urine Protein Urine Glucose (UA) Urine Ketones Urine Blood Urine Nitrite Urine Bilirubin Urine Urobilinogen Ur Leukocyte Esterase Urine RBC Urine WBC Ur Squamous Epith Cells Urine Bacteria Stool Occult Blood Positive A SARS-CoV-2 (PCR) Influenza Type A (PCR) Influenza Type B (PCR) RSV (PCR) Lab Acknowledgement Test Added POC Troponin I 04/21/23 04/21/23 08:00 11:10 WBC RBC Hgb Hct MCV MCH MCHC RDW Coeff of Alicia Plt Count Neut % (Auto) Lymph % (Auto) [place] % (Auto) Eos % (Auto) Baso % (Auto) Neut # (Auto) Lymph # (Auto) [place] # (Auto) Eos # (Auto) Baso # (Auto) Abs Immat Gran (auto) Imm/Tot Granulo (auto) Sodium 129 L Potassium 3.3 L Chloride 101 Carbon Dioxide 20 Anion Gap 8 BUN 28 Creatinine 0.9 Estimated Creat Clear 40.91 Estimated GFR 71 Glucose 346 H Hemoglobin A1c Lactate Calcium 7.5 L Total Bilirubin AST ALT Alkaline Phosphatase Troponin I C-Reactive Protein Total Protein Albumin Lipase Procalcitonin Urine Color Yellow Urine Appearance Slightly Cloudy A Urine pH 5.5 Ur Specific [place] <= 1.005 Urine Protein Trace A Urine Glucose (UA) 3+ A Urine Ketones 1+ A Urine Blood Trace-intact A Urine Nitrite Negative Urine Bilirubin Negative Urine Urobilinogen 1.0 Ur Leukocyte Esterase Negative Urine RBC 2-5 A Urine WBC 5-10 A Ur Squamous Epith Cells Few Urine Bacteria Few A Stool Occult Blood SARS-CoV-2 (PCR) Influenza Type A (PCR) Influenza Type B (PCR) RSV (PCR) Lab Acknowledgement POC Troponin I
[2023-04-21 13:25] LABS: Lab Add On Test New Spec Needed
--- NOTE | 2023-04-21 13:49 | PC.SOCIAL ---
Addendum entered by Vandana Peña LCSW 04/21/23 16:30: Social work contacted the following SNF that take Medicare Advantage AARP: 1. [facility] [phone] left message and faxed [phone] 2. [facility] [phone] Left message and faxed 3. [facility] Wall [phone] message 4. [facility] Intake [phone] Left message for [facility] [place] and [facility] Locations [facility] - [facility] 6. [facility] message Social work to follow up as needed Original Note: Discharge Planning: Met with patient briefly in room. Patient appears to answer questions appropriately. Preliminary planning- Patient states that she hopes to go back home. Patient lives with boyfriend and he would be able to transport her home. Talked with hospitalist - possible placement, patient has had more confusion. Social work to start looking at SNFs who take AARP Medicare Advantage.
[2023-04-21 14:33] LABS: Ammonia* < 9.0 umol/L (13.1-30.0)
[2023-04-21] MEDS: ACETAMINOPHEN 325 MG TABLET 650 MG PO (14:35)
--- NOTE | 2023-04-21 15:43 | NUTR.NU ---
Asked by pt's RN to see pt and explain ordering process, and carb counting to assist with compliance to strict DM diet. BGs have been in the 400's. While in visit, daughter was present. Daughter state pt has not been good about following any reasonable pattern of eating at home. Daughter pulled up the pt's Dexcom results and pt has many highs and lows, with <50% TIR. Recommended to pt that they schedule an outpatient visit with the dietitian to review more thoroughly. Pt may also benefit from medication adjustment by a provider. Reviewed carb counting process and selecting from the menu. Order is for up to 4 carb exchanges per meal. Kitchen was notified that they should reinforce this.
[2023-04-21] MEDS: POTASSIUM CHLORIDE 10 MEQ CAPSULE ER 20 MEQ PO (17:26)
--- NOTE | 2023-04-21 18:42 | PC.NURSE ---
End of shift: patient alert and oriented to self. Intermittent confusion. Denies pain, c/o of headache and PRN Tylenol administered w/relief. Patient on strict therapeutic diet as a result of unmanaged blood sugars. tolerating well. BG 417, 427, 356, and 237 today. sliding scale used. see eMAR. IV in right forearm patent, NS running at 125 mls/hr. CIWA Q4, score was 2 this shift. Still awaiting sputum sample from patient, Resp. therapy in to see patient and brief how to use [employer]. patient needs reminders on using and coughing out productive cough. Tele shows left BBB. Patient on fall precaution and droplet precaution.
[2023-04-21] MEDS: ENOXAPARIN 40 MG/0.4 ML INJ SUBCUT (21:00)
[2023-04-22] VITALS (31 sets, daily range): BP systolic 121–157; BP diastolic 56–87; PULSE 69–90; RESP 16–26; TEMP 36.2–36.5; O2SAT 78–97
[2023-04-22] MEDS: PHENobarbitaL 260 MG in 0.9 % SODIUM CHLORIDE 100 ml 100 ML 208 MG IVPB (00:12)
[2023-04-22] MEDS: LORazepam 2 MG/ML inj IVP ×3 (01:13→22:45)
[2023-04-22] MEDS: CEFEPIME HCL 2 GM in 0.9 % SODIUM CHLORIDE Mini-bag 100 ML IVPB ×3 (01:26→21:34)
[2023-04-22] MEDS: 0.9 % SODIUM CHLORIDE 1000 ml 1,000 ML 125 ML IV (05:07)
[2023-04-22] MEDS: AZITHROMYCIN 500 MG in 0.9 % SODIUM CHLORIDE 250 ml 250 ML 255 MG IVPB (06:06)
[2023-04-22 06:58] LABS: Basophils Percent Auto 0.1 % (0.0-3.0); Eosinophils Percent Auto 0.4 % (0.0-7.0); Hematocrit 29.8 % (33.0-51.0); Hemoglobin* 9.8 gm/dL (12.0-16.0); Lymphocytes Percent Auto 10.1 % (20-44); Mean Corpuscular HGB Conc 33 gm/dL (32-36); Mean Corpuscular Hemoglobin 31 pg (26-34); Mean Corpuscular Volume 93 fL (80-100); Monocytes Percent Auto 7.3 % (0.0-11.0); Neutrophils Percent Auto 81.1 % (42.0-72.0); Platelet Count* 340 K/uL (140-440); RDW Coefficient of Variation % 12.3 % (11.5-15.5); White Blood Count* 16.61 K/uL (4.50-11.00)
[2023-04-22 07:11] LABS: Albumin* 2.4 g/dL (3.3-5.0); Chloride* 110 mmol/L (96-114)
[2023-04-22 07:12] LABS: Potassium* 3.1 mmol/L (3.6-5.1); Slide Review Reflex No; Sodium* 134 mmol/L (135-149)
[2023-04-22 07:14] LABS: Creatinine* 0.8 mg/dL (0.5-1.5); Est. Creatinine Clearance* 43.77; Estimated Glomerular Filt Rate 81 ml/min
[2023-04-22 07:15] LABS: Alanine Aminotransferase* 25 U/L (4-35); Alkaline Phosphatase* 161 U/L (40-150); Anion Gap 6 mEq/L (7-15); Aspartate Amino Transferase* 55 U/L (12-35); Bilirubin Direct* 0.1 mg/dL (0.0-0.5); Bilirubin Total* 0.4 mg/dL (0.1-1.5); Blood Urea Nitrogen* 23 mg/dL (7-30); Calcium* 7.7 mg/dL (8.4-10.6); Carbon Dioxide* 18 mmol/L (20-32); Glucose* 59 mg/dL (60-115); Magnesium* 2.3 mg/dL (1.5-2.6); Total Protein* 5.5 g/dL (6.0-8.3)
--- NOTE | 2023-04-22 07:37 | PC.NURSE ---
End of shift: Pt alert to self and cooperative. Upon first assessment at 1930 pt?s 02 sats in low 80s. RT placed pt on high flow. BS at HS 164, Novolog held per . At 2300 pt reporting seeing ?rodents running all over?. Pt became more restless. Scored 16 on CIWA. notified, see orders. See eMAR for intervention. At 0600 pt arousable to light sternal rub and name. Pt refused to sit up and get out of bed. Blood sugar check, juice offered, but pt refused. Repositioned at this time. Bladder scanned for 216cc Pt encouraged to use arobika while awake. Turn and repo while sleeping.
--- NOTE | 2023-04-22 07:46 | RESP.RT ---
Patient SATs continued to drop overnight. She is confused and not very compliant with aerobika treatments. She is compliant with HFNC. She is currently SATing 90% on .80HFNC @ 40Lpm.
[2023-04-22] MEDS: 5 % DEXTROSE/0.9% SOD CHLORIDE 1,000 ML 75 ML IV ×2 (07:49→21:33)
[2023-04-22] MEDS: DEXTROSE 50 % SYRINGE IVP (07:51)
[2023-04-22 07:52] LABS: HCO3 VBG 20 mmol/L (21-28); PCO2 VBG 33 mmHG (40-50); PO2 VBG 58.7 mmHG (25-47); pH VBG 7.388 (7.32-7.43)
[2023-04-22 08:11] LABS: NT Pro B Type NatriureticPept* 9600 pg/mL
[2023-04-22 08:20] LABS: Troponin I* < 0.01 ng/mL (0.01-0.04)
--- NOTE | 2023-04-22 15:20 | P.IMPN_ITS ---
Progress Note: A&P Assessment and plan (1) Sepsis due to pneumonia: Problem details: -Zosyn and vancomycin given in the ER. 'Mass-like consolidation' per radiologist. -Continue antibiotic coverage with cefepime (due to Pseudomonas risk conferred by structural lung abnormalities) and azithromycin -MRSA screen with increased coverage if indicated -Follow blood culture results, sputum culture ordered, strep pneumo and Legionella pending. Lactate improved, now WNL -Incentive spirometry. Patient declines Mucinex (makes her ill) -Outpatient follow up CXR or CT to ensure resolution. Consider inpatient CT if poor clinical progress. Patient denies any current tobacco use. Further discussion merited as this contradicts documented history. Status: Acute (2) Recurrent falls: Problem details: This appears to be a longer-term issue with multiple falls today prior to admission. No known syncopal events. CT/plain films without acute findings -PT/OT assessment ordered -Review home medications for potential offending agents. Gabapentin held -Telemetry monitoring -Social work consultation, likely to require at least short-term rehab -UA/UC ordered -continue wound cares for skin tears Status: Acute (3) Encephalopathy: Problem details: -acute confusion, unknown baseline -Neurology telehealth consulted. Suspect related to gabapentin neurotoxicity. Elevated BUN, dehydration. Elevated liver enzymes -recommendations as follows: Stop gabapentin, continue IV hydration, obtain ammonia level, repeat hepatic function tests, continue Keppra and Vimpat -note: Do not resume gabapentin for at least 1 week. When resumed start at 300 mg twice daily max -glucose morning of 04/22/2023 was as low as 38. Treated accordingly with improved glucose levels. Decrease insulin dosing. Status: Acute (4) Seizure disorder: Problem details: -continue Keppra and Vimpat -seizure precautions Status: Acute (5) Hyponatremia: Problem details: -in setting of hypovolemia -sodium improved to 129 from 126 following IV hydration, continue to monitor -hold lisinopril -initiate D5 normal saline IV. Status: Acute (6) Diabetes mellitus with hyperglycemia: Problem details: -hyperglycemia in setting of acute illness. Patient reports poor readings over the last several days, otherwise baseline 120s per her report -A1c 8.8 -received 12 units insulin in ED, remains hyperglycemic. Anion gap WNL -continue IV hydration -Accu-Cheks ACHS and prn, strict diabetic diet, moderate-high insulin sliding scale -morning of 04/22/2023 glucose was 38. Administer D50. Started her on D5 normal saline. Blood sugars improved. Decreased nighttime Levemir from 19 down to 10 units daily. Continue with sliding scale. Status: Acute (7) Normocytic anemia: Problem details: Patient reports black stools 2 days [employer]. Initial hemoglobin 11.1. -Fecal occult blood positive -monitor hemoglobin trend -consider General surgery consult if necessary Status: Acute (8) Elevated liver enzymes: Problem details: AST to ALT ratio is 2:1. Unclear alcohol use. Poor historian currently -Monitor periodically with above treatments, CMP in a.m. -hold statin Status: Acute (9) Hypokalemia: Problem details: -potassium 3.3, continue replacement and monitor Status: Acute (10) Hypocalcemia: Problem details: -calcium 7.5, previously 0.3, corrected calcium 8.13. Will add magnesium level -continue to monitor Status: Acute (11) Hypertension: Problem details: -stable, hold lisinopril, continue to monitor Status: Acute (12) Alcohol abuse: Problem details: -monitor and intervene with CIWA protocol -received phenobarbital yesterday, will hold today Status: Acute Subjective Time Seen by Provider: 07:00 Date Seen: 04/22/23 Interval history: Hospital day 2. Her condition seemed to worsen overnight. She was started on oxygen shortly before midnight. During the course of the night she required increasing amounts of oxygen. She was on high-flow oxygen at a rate of 40 liters/minute with FiO2 of 80% maintaining saturations 90-91% when I 1st saw her. Throughout the day she has required significant less amount of oxygen, flow rates in the 30s, FiO2 30-40%, with saturations 95%. Has been rather lethargic throughout the day. Arouses in speaks briefly. Disoriented. I examine her with her boyfriend/significant other in the room with her this afternoon. He tells me she has become increasingly lethargic over the last 4-5 days. She has been in her bed this whole time. He believes she has been taking her medications. He is not sure if she has been drinking alcohol in the last several days but ordinarily she drinks 1-2 beers daily that he is aware of. Exam Narrative: Exam Narrative: Examined patient in her room. She has humidified high-flow oxygen delivery. Current FiO2 40% with flow rate of 30 liters/minute saturating 95%. Lethargic. Difficult to arouse but arouses and is disoriented. Pupils are equally round and reactive to light. Right lower lobe rales. Otherwise clear. Heart tones with regular rhythm. Abdomen with active bowel sounds, soft, nontender. Does move all 4 extremities. Skin is intact. Const: Vital Signs, click to edit/add: Vital Signs - 24 hr 04/21/23 19:41 04/21/23 19:43 04/21/23 20:07 Temperature 97.9 F 97.9 F Pulse Rate Pulse Rate [Pulse Oximeter] 77 77 Respiratory Rate 20 20 Blood Pressure [Le ft Arm] Blood Pressure [Le ft Radial Artery] 122/81 122/81 Pulse Oximetry 93 93 Oxygen Delivery Me thod Nasal Cannula Nasal Cannula Oxygen Flow Rate 3 3 30 Fraction of Inspir ed Oxygen 25 04/21/23 22:07 04/21/23 22:11 04/21/23 22:55 Temperature Pulse Rate Pulse Rate [Pulse Oximeter] 82 Respiratory Rate 20 Blood Pressure [Le ft Arm] Blood Pressure [Le ft Radial Artery] 156/66 H Pulse Oximetry 92 Oxygen Delivery Me thod High Flow Nasal Ca nnula Oxygen Flow Rate Fraction of Inspir ed Oxygen 25 25 04/21/23 23:00 04/21/23 23:25 04/22/23 00:05 Temperature Pulse Rate Pulse Rate [Pulse Oximeter] 82 Respiratory Rate 20 Blood Pressure [Le ft Arm] Blood Pressure [Le ft Radial Artery] 156/66 H Pulse Oximetry 92 Oxygen Delivery Me thod High Flow Nasal Ca nnula Oxygen Flow Rate 30 Fraction of Inspir ed Oxygen 25 30 25 04/22/23 00:11 04/22/23 01:09 04/22/23 01:34 Temperature 97.6 F Pulse Rate Pulse Rate [Pulse Oximeter] 81 Respiratory Rate 22 Blood Pressure [Le ft Arm] Blood Pressure [Le ft Radial Artery] 141/77 H Pulse Oximetry 90 Oxygen Delivery Me thod High Flow Nasal Ca nnula Oxygen Flow Rate 30 Fraction of Inspir ed Oxygen 30 25 40 04/22/23 02:00 04/22/23 02:05 04/22/23 03:00 Temperature Pulse Rate 82 Pulse Rate [Pulse Oximeter] 72 Respiratory Rate 16 Blood Pressure [Le ft Arm] Blood Pressure [Le ft Radial Artery] 121/61 Pulse Oximetry 96 Oxygen Delivery Me thod High Flow Nasal Ca nnula Oxygen Flow Rate Fraction of Inspir ed Oxygen 30 04/22/23 03:00 04/22/23 04:05 04/22/23 04:06 Temperature Pulse Rate Pulse Rate [Pulse Oximeter] 69 70 Respiratory Rate 20 18 Blood Pressure [Le ft Arm] 125/56 L 125/67 Blood Pressure [Le ft Radial Artery] Pulse Oximetry 97 91 Oxygen Delivery Me thod High Flow Nasal Ca nnula High Flow Nasal Ca nnula Oxygen Flow Rate Fraction of Inspir ed Oxygen 35 04/22/23 05:01 04/22/23 06:00 04/22/23 07:00 Temperature Pulse Rate Pulse Rate [Pulse Oximeter] 70 78 Respiratory Rate 20 26 H Blood Pressure [Le ft Arm] 123/72 Blood Pressure [Le ft Radial Artery] Pulse Oximetry 92 Oxygen Delivery Me thod High Flow Nasal Ca nnula Oxygen Flow Rate Fraction of Inspir ed Oxygen 80 04/22/23 07:00 04/22/23 07:00 04/22/23 07:45 Temperature 97.6 F Pulse Rate 77 Pulse Rate [Pulse Oximeter] 78 Respiratory Rate 26 H Blood Pressure [Le ft Arm] Blood Pressure [Le ft Radial Artery] 127/67 Pulse Oximetry 90 Oxygen Delivery Me thod High Flow Nasal Ca nnula Oxygen Flow Rate 40 40 Fraction of Inspir ed Oxygen 80 80 04/22/23 08:42 04/22/23 09:00 04/22/23 11:00 Temperature 97.6 F Pulse Rate Pulse Rate [Pulse Oximeter] 78 Respiratory Rate 26 H Blood Pressure [Le ft Arm] 123/72 Blood Pressure [Le ft Radial Artery] 127/67 Pulse Oximetry 90 Oxygen Delivery Me thod High Flow Nasal Ca nnula Oxygen Flow Rate 30 Fraction of Inspir ed Oxygen 50 40 40 04/22/23 11:00 04/22/23 13:00 04/22/23 13:00 Temperature 97.7 F 97.7 F Pulse Rate Pulse Rate [Pulse Oximeter] 80 80 Respiratory Rate 26 H 26 H Blood Pressure [Le ft Arm] 129/64 129/64 Blood Pressure [Le ft Radial Artery] 127/67 Pulse Oximetry 94 94 Oxygen Delivery Me thod High Flow Nasal Ca nnula High Flow Nasal Ca nnula Oxygen Flow Rate 30 30 Fraction of Inspir ed Oxygen 40 40 40 Documenting provider has reviewed patient's vital signs: yes Labs Labs: Laboratory Results - last 24 hr 04/22/23 04/22/23 04/22/23 06:24 07:26 07:46 WBC 16.61 H RBC 3.20 L Hgb 9.8 L Hct 29.8 L MCV 93 MCH 31 MCHC 33 RDW Coeff of Alicia 12.3 Plt Count 340 Neut % (Auto) 81.1 H Lymph % (Auto) 10.1 L [place] % (Auto) 7.3 Eos % (Auto) 0.4 Baso % (Auto) 0.1 Neut # (Auto) 13.50 H Lymph # (Auto) 1.70 [place] # (Auto) 1.20 H Eos # (Auto) 0.10 Baso # (Auto) 0.00 Abs Immat Gran (auto) 0.20 Imm/Tot Granulo (auto) 1.0 VBG pH 7.388 VBG pCO2 33 L VBG pO2 58.7 H VBG HCO3 20 L Sodium 134 L Potassium 3.1 L Chloride 110 Carbon Dioxide 18 L Anion Gap 6 L BUN 23 Creatinine 0.8 Estimated Creat Clear 43.77 Estimated GFR 81 Glucose 59 L Calcium 7.7 L Magnesium 2.3 Total Bilirubin 0.4 Direct Bilirubin 0.1 AST 55 H ALT 25 Alkaline Phosphatase 161 H Troponin I < 0.01 L C-Reactive Protein 19.0 H NT-Pro-B Natriuret Pep 9600 Total Protein 5.5 L Albumin 2.4 L Lab Acknowledgement Test Added
--- NOTE | 2023-04-22 18:45 | PC.NURSE ---
End of shift: Pt asleep throughout the shift. high flow at 30, 40fiO3 and 36 temp. patient sating at 95%. Patient was repo'd throughtout shift and brief change. Patient unable to participate in CIWA questions. Patient also too sleepy to swallow pills or eat. D50w IVP administered at 0751 for BG at 38. Patient started on D5W NS @75mls/hr. Blood sugars checked hourly. see eMAR. IV in right arm removed because it was leaking and a new 20G IV started on right wrist. patent and intact. VSS, and family at bedside throughout shift.
[2023-04-22] MEDS: ENOXAPARIN 40 MG/0.4 ML INJ SUBCUT (20:57)
[2023-04-22] MEDS: LACOSAMIDE 50 MG TABLET 100 MG PO (22:32)
--- NOTE | 2023-04-22 23:40 | CRLHL7_ITS ---
For Patients: As a result of the Century Cures Act, medical imaging exams and procedure reports are released immediately into your electronic medical record. You may view this report before your referring provider. If you have questions, please contact your health care provider. INDICATION: Dyspnea. TECHNIQUE: Chest 1 views. COMPARISON: 04/21/2023. FINDINGS: The is new complete opacification of the left hemithorax with mild leftward tracheal deviation. Additionally, there is similar mild increase in right mid and lower lung airspace opacity. The cardiomediastinal silhouette is grossly unchanged though shifted to the right given limitations consolidation. No right pleural effusion. No large pneumothorax. Interstitial opacities within the right lung have increased. No acute osseous abnormality. IMPRESSION: Interval complete opacification of the left hemithorax with leftward mediastinal and tracheal shift suggesting volume loss related to atelectasis/mucus plugging. Additional underlying pleural effusion or airspace process (aspiration, hemorrhage, pneumonia) are not excluded. Similar to slight increase in masslike airspace opacity in the right lower lung. Dictated by Anabell Sifuentes MD @ 04/23/2023 3:18:43 AM (Electronically Signed)
[2023-04-22 23:52] LABS: HCO3 VBG 22 mmol/L (21-28); PCO2 VBG 42 mmHG (40-50); PO2 VBG 37.8 mmHG (25-47); pH VBG 7.316 (7.32-7.43)
[2023-04-23] VITALS (18 sets, daily range): BP systolic 136–167; BP diastolic 71–91; PULSE 83–99; RESP 22–26; TEMP 36.4–37; O2SAT 92–99
[2023-04-23] MEDS: ACETYLCYSTEINE 200 MG/ML soln 600 MG NEB ×2 (05:07→10:06)
[2023-04-23] MEDS: CEFEPIME HCL 2 GM in 0.9 % SODIUM CHLORIDE Mini-bag 100 ML IVPB ×2 (05:32→13:48)
[2023-04-23] MEDS: AZITHROMYCIN 500 MG in 0.9 % SODIUM CHLORIDE 250 ml 250 ML 255 MG IVPB (06:24)
[2023-04-23 06:27] LABS: HCO3 VBG 21 mmol/L (21-28); PCO2 VBG 31 mmHG (40-50); PO2 VBG 98.4 mmHG (25-47); pH VBG 7.427 (7.32-7.43)
[2023-04-23 06:35] LABS: Basophils Percent Auto 0.1 % (0.0-3.0); Eosinophils Percent Auto 0.3 % (0.0-7.0); Hematocrit 30.8 % (33.0-51.0); Immature Granulocytes Pct Auto 0.8 %; Lymphocytes Percent Auto 7.7 % (20-44); Mean Corpuscular HGB Conc 33 gm/dL (32-36); Mean Corpuscular Hemoglobin 30 pg (26-34); Mean Corpuscular Volume 93 fL (80-100); Monocytes Percent Auto 6.1 % (0.0-11.0); Platelet Count* 393 K/uL (140-440); RDW Coefficient of Variation % 12.4 % (11.5-15.5); Red Blood Count 3.33 m/uL (4.00-5.20); White Blood Count* 14.59 K/uL (4.50-11.00)
--- NOTE | 2023-04-23 06:46 | PC.NURSE ---
Contacted Pt placement at [facility] @ 2132. First on WAIT LIST for ICU bed. No time frame given. ANW will contact us when bed becomes available.
[2023-04-23 06:48] LABS: Albumin* 2.4 g/dL (3.3-5.0); Chloride* 108 mmol/L (96-114); Sodium* 132 mmol/L (135-149)
[2023-04-23 06:50] LABS: Creatinine* 0.6 mg/dL (0.5-1.5); Est. Creatinine Clearance* 43.77; Estimated Glomerular Filt Rate 99 ml/min
[2023-04-23 06:51] LABS: Alanine Aminotransferase* 20 U/L (4-35); Alkaline Phosphatase* 133 U/L (40-150); Anion Gap 5 mEq/L (7-15); Aspartate Amino Transferase* 35 U/L (12-35); Bilirubin Total* 0.4 mg/dL (0.1-1.5); Blood Urea Nitrogen* 13 mg/dL (7-30); Carbon Dioxide* 19 mmol/L (20-32); Glucose* 103 mg/dL (60-115); Phosphorus* 2.7 mg/dL (2.5-4.5); Total Protein* 5.5 g/dL (6.0-8.3)
[2023-04-23 06:52] LABS: Calcium* 7.7 mg/dL (8.4-10.6)
--- NOTE | 2023-04-23 06:55 | PC.NURSE ---
End of shift: Alert to self. Pt hypertensive all shift. MD aware, continue to monitor. Upon first assessment pt agitated and scoring a 17 on CIWA. See eMAR for intervention. At 2200 pt still agitated, ripping oxygen off stating ?I?m going to smoke?. Pt also having hallucinations, stating ?are all these people in here??. See eMAR for intervention. At 2330 pt desating to low 70s. High flow adjusted,?pt repositioned and in high fowlers with improvement. MD updated, see orders. [facility] updated with chest x-ray results. See orders. Pt currently on waiting list to be transferred. HS novolg held per . BS check at 0400 128. A2/ to commode. daughter called nurses station this am looking for an update.?bed alarm in place. ???
[2023-04-23 06:58] LABS: Slide Review Reflex No
[2023-04-23 07:03] LABS: Troponin I* 0.02 ng/mL (0.01-0.04)
[2023-04-23 07:08] LABS: Procalcitonin* 0.94 ng/mL (<0.50)
[2023-04-23 07:27] LABS: C Reactive Protein* 15.6 mg/dL (0.5-1.0); NT Pro B Type NatriureticPept* 15200 pg/mL
[2023-04-23] MEDS: 5 % DEXTROSE/0.9% SOD CHLORIDE 1,000 ML 75 ML IV ×2 (10:05→13:40)
--- NOTE | 2023-04-23 12:07 | PM.DS1 ---
DS: Providers Provider Time Seen by Provider: 10:00 Date Seen: 04/23/23 Date of admission: 04/21/23 08:31 Primary care physician: David Sparks MD Admitting Clinician: Brennen Pineda DO Consults: 04/21/23 04:07 Consult to Physical Therapy [CONS] Routine Comment: Reason(s) for PT Consult:: Evaluate and Treat Any Restrictions?:: No Restrictions Comment: multiple recurrent falls Consult to Computer Hardware Developer [CONS] Routine Comment: Reason for Consult:: Social Service Consult 04/21/23 05:54 Consult to Occupational Therapy [CONS] Routine Comment: Reason(s) for OT Consult:: Difficulty Managing ADLs Any Restrictions?:: No Restrictions Consult to Physical Therapy [CONS] Routine Comment: Reason(s) for PT Consult:: Evaluate Ambulation Any Restrictions?:: No Restrictions Consult to Computer Hardware Developer [CONS] Routine Comment: Reason for Consult:: Discharge Planning Needs Attending Physician on discharge: Wilmer Velásquez MD Date of Discharge: 04/23/23 DS: Diagnosis Discharge Diagnosis (1) Acute hypoxic respiratory failure: Status: Acute (2) Mucus plugging of bronchi: Status: Acute (3) Sepsis due to pneumonia: Status: Acute Problem details: -Zosyn and vancomycin given in the ER. 'Mass-like consolidation' per radiologist. -Continue antibiotic coverage with cefepime (due to Pseudomonas risk conferred by structural lung abnormalities) and azithromycin -MRSA screen with increased coverage if indicated -Follow blood culture results, sputum culture ordered, strep pneumo and Legionella pending. Lactate improved, now WNL -Incentive spirometry. Patient declines Mucinex (makes her ill) -Outpatient follow up CXR or CT to ensure resolution. Consider inpatient CT if poor clinical progress. Patient denies any current tobacco use. Further discussion merited as this contradicts documented history. (4) Pneumonia: Status: Acute (5) Encephalopathy: Status: Acute Problem details: -acute confusion, unknown baseline -Neurology telehealth consulted. Suspect related to gabapentin neurotoxicity. Elevated BUN, dehydration. Elevated liver enzymes -recommendations as follows: Stop gabapentin, continue IV hydration, obtain ammonia level, repeat hepatic function tests, continue Keppra and Vimpat -note: Do not resume gabapentin for at least 1 week. When resumed start at 300 mg twice daily max -glucose morning of 04/22/2023 was as low as 38. Treated accordingly with improved glucose levels. Decrease insulin dosing. (6) Alcohol abuse: Status: Acute Problem details: -monitor and intervene with CIWA protocol -received phenobarbital yesterday, will hold today (7) Acute hyperglycemia: Status: Acute (8) Diabetes mellitus with hyperglycemia: Status: Acute Problem details: -hyperglycemia in setting of acute illness. Patient reports poor readings over the last several days, otherwise baseline 120s per her report -A1c 8.8 -received 12 units insulin in ED, remains hyperglycemic. Anion gap WNL -continue IV hydration -Accu-Cheks ACHS and prn, strict diabetic diet, moderate-high insulin sliding scale -morning of 04/22/2023 glucose was 38. Administer D50. Started her on D5 normal saline. Blood sugars improved. Decreased nighttime Levemir from 19 down to 10 units daily. Continue with sliding scale. (9) Elevated troponin: Status: Acute (10) Elevated liver enzymes: Status: Acute Problem details: AST to ALT ratio is 2:1. Unclear alcohol use. Poor historian currently -Monitor periodically with above treatments, CMP in a.m. 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 Initial hemoglobin 11.1. -Fecal occult blood positive -monitor hemoglobin trend -consider General surgery consult if necessary (12) Hyponatremia: Status: Acute Problem details: -in setting of hypovolemia -sodium improved to 129 from 126 following IV hydration, continue to monitor -hold lisinopril -initiate D5 normal saline IV. (13) Hypokalemia: Status: Acute Problem details: -potassium 3.3, continue replacement and monitor (14) Hypocalcemia: Status: Acute Problem details: -calcium 7.5, previously 0.3, corrected calcium 8.13. Will add magnesium level -continue to monitor (15) Seizure disorder: Status: Acute Problem details: -continue Keppra and Vimpat -seizure precautions (16) Recurrent falls: Status: Acute Problem details: This appears to be a longer-term issue with multiple falls today prior to admission. No known syncopal events. CT/plain films without acute findings -PT/OT assessment ordered -Review home medications for potential offending agents. Gabapentin held -Telemetry monitoring -Social work consultation, likely to require at least short-term rehab -UA/UC ordered -continue wound cares for skin tears (17) Hypertension: Status: Acute Problem details: -stable, hold lisinopril, continue to monitor DS: Summary Hospital Course Hospital Course: History of present illness: Bella Jones is seen as an Interactive Telehealth visit. Bella Jones is a 67 year old female who presented to the ER after multiple falls at home. She complained of head and neck pain upon arrival. Per ER physician, she was found by her son and had been down for about 1 hour. Patient states she felt twice in the bathroom last night and multiple times during the day. These falls were associated with dizziness and lightheadedness but she denies any loss of consciousness. She states she hit her head several times. Her blood sugars have been in the 400 range over the past week with poor oral intake. She admits to cough and shortness of breath when she coughs but not with activity, epigastric abdominal pain, nausea, vomiting, episodes of diarrhea beginning yesterday, black stools 2 days ago. She denies fevers, chills, sweating or headaches. She denies any tobacco use and admits to a couple of drinks per week but not to drink alcohol prior to falling. Bella suspects her medications may contribute to her falls but is unable to specify which medications. Seizure disorder history on Keppra without recent seizure activity, the last was about 6 months ago. ER assessment: Noncontrasted head CT was negative for acute findings, CT spine reconstructed images were negative for fracture. Chest x-ray showed right lower lobe pneumonia with masslike consolidation. WBC 20,000, lactate 2, procalcitonin 3.5, no fever. Sodium 126, potassium 3.5, glucose 418. Troponin slightly elevated 0.09, EKG showed sinus tachycardia and left bundle branch block. She was tachycardic on presentation. Treatment included IV fluids, Zosyn and vancomycin for sepsis. Over the course of the him less than today she became encephalopathic, lethargic, less interactive, hypersomnolent. Differential for this included progression of pneumonia and sepsis, alcohol withdrawal, gabapentin toxicity, and other. Consultation undertaken with Neurology via video assessment. Neurologist concerned about gabapentin toxicity. Gabapentin was stopped. Only gradually over time did she awaken more. Still lethargic. We continued with treatment for pneumonia as initiated on presentation. Her oxygen need increased during the course hospitalization such that For while she was on high-flow humidified oxygen at 40 liters/minute via nasal cannula with FiO2 of 80% to maintain oxygen saturations 88-90%. Her oxygen needs varied considerably from moment to moment, and remarkably when she was awakened coughing she required less oxygen where as when she was asleep and not clearing her airway she was requiring a lot more oxygen. Repeat chest x-ray obtained late night on 04/22/2023 demonstrating complete whiteout on the left suggestive of mucus plugging. Condition did not improve, patient continued to require high-flow oxygen, thus call was made to try to arrange for transfer to a tertiary care center given patient's stated desire for all interventions to be attempted. Eventually I was able to make arrangements with [place], [place], with [facility], who accepts the patient in transfer when they have bed availability. The anticipation is that they will have bed availability and accept her in transfer on the afternoon of 04/23/2023. Patient was kept NPO on date of transfer in case she warrants urgent flexible bronchoscopy. Status at Discharge Functional status at discharge: bed bound Overall status at discharge: patient is not back to baseline Time Spent with Patient Time attestation: Total time spent providing and/or coordinating discharge services: Time spent: Greater than 30 minutes Exam Narrative: Exam Narrative: Examined patient in her room. She has humidified high-flow oxygen delivery. Current FiO2 40% with flow rate of 30 liters/minute saturating 92-95%. Awake. Interactive.. Pupils are equally round and reactive to light. Right lower lobe rales, with scattered rhonchi and wheezing.. Heart tones with regular rhythm. Abdomen with active bowel sounds, soft, nontender. Does move all 4 extremities. Skin is intact. Const: Vital Signs, click to edit/add: Vital Signs - 24 hr 04/22/23 13:00 04/22/23 13:00 04/22/23 15:00 Temperature 97.7 F Pulse Rate 77 Pulse Rate [Pulse Oximeter] 80 Respiratory Rate 26 H Blood Pressure [Le ft Arm] 129/64 Blood Pressure [Le ft Radial Artery] 127/67 Pulse Oximetry 94 Oxygen Delivery Me thod High Flow Nasal Ca nnula Oxygen Flow Rate 30 Fraction of Inspir ed Oxygen 40 40 04/22/23 15:00 04/22/23 15:00 04/22/23 15:00 Temperature 97.7 F Pulse Rate Pulse Rate [Pulse Oximeter] 76 76 Respiratory Rate 20 20 Blood Pressure [Le ft Arm] 141/70 H Blood Pressure [Le ft Radial Artery] Pulse Oximetry 95 Oxygen Delivery Me thod High Flow Nasal Ca nnula Oxygen Flow Rate 30 Fraction of Inspir ed Oxygen 40 40 04/22/23 17:00 04/22/23 17:00 04/22/23 19:31 Temperature 97.7 F 97.1 F L Pulse Rate Pulse Rate [Pulse Oximeter] 89 Respiratory Rate 20 20 Blood Pressure [Le ft Arm] 157/75 H 142/69 H Blood Pressure [Le ft Radial Artery] Pulse Oximetry 95 91 Oxygen Delivery Me thod High Flow Nasal Ca nnula High Flow Nasal Ca nnula Oxygen Flow Rate 30 Fraction of Inspir ed Oxygen 40 40 04/22/23 19:32 04/22/23 19:33 04/22/23 20:00 Temperature 97.1 F L Pulse Rate Pulse Rate [Pulse Oximeter] 89 82 Respiratory Rate 20 20 Blood Pressure [Le ft Arm] 142/69 H 154/87 H Blood Pressure [Le ft Radial Artery] 127/67 Pulse Oximetry 91 90 Oxygen Delivery Me thod High Flow Nasal Ca nnula High Flow Nasal Ca nnula Oxygen Flow Rate 30 30 Fraction of Inspir ed Oxygen 40 40 40 04/22/23 21:00 04/22/23 21:00 04/22/23 22:00 Temperature 97.4 F L Pulse Rate Pulse Rate [Pulse Oximeter] 87 90 Respiratory Rate 20 20 Blood Pressure [Le ft Arm] 151/74 H 146/66 H Blood Pressure [Le ft Radial Artery] Pulse Oximetry 93 91 Oxygen Delivery Me thod High Flow Nasal Ca nnula High Flow Nasal Ca nnula Oxygen Flow Rate 30 30 Fraction of Inspir ed Oxygen 40 40 40 04/22/23 23:00 04/22/23 23:06 04/22/23 23:07 Temperature Pulse Rate 88 Pulse Rate [Pulse Oximeter] 86 86 Respiratory Rate 20 20 Blood Pressure [Le ft Arm] 151/74 H 151/74 H Blood Pressure [Le ft Radial Artery] 127/67 Pulse Oximetry 93 93 Oxygen Delivery Me thod High Flow Nasal Ca nnula High Flow Nasal Ca nnula Oxygen Flow Rate 30 30 Fraction of Inspir ed Oxygen 40 40 04/22/23 23:09 04/22/23 23:30 04/22/23 23:35 Temperature Pulse Rate Pulse Rate [Pulse Oximeter] Respiratory Rate Blood Pressure [Le ft Arm] Blood Pressure [Le ft Radial Artery] Pulse Oximetry Oxygen Delivery Me thod Oxygen Flow Rate Fraction of Inspir ed Oxygen 40 100 100 04/22/23 23:40 04/23/23 00:00 04/23/23 00:32 Temperature Pulse Rate Pulse Rate [Pulse Oximeter] 92 Respiratory Rate 22 Blood Pressure [Le ft Arm] 157/91 H Blood Pressure [Le ft Radial Artery] Pulse Oximetry 94 Oxygen Delivery Me thod High Flow Nasal Ca nnula Oxygen Flow Rate 40 Fraction of Inspir ed Oxygen 80 80 75 04/23/23 00:52 04/23/23 01:00 04/23/23 01:31 Temperature Pulse Rate Pulse Rate [Pulse Oximeter] 83 Respiratory Rate 22 Blood Pressure [Le ft Arm] 167/84 H Blood Pressure [Le ft Radial Artery] Pulse Oximetry 98 Oxygen Delivery Me thod High Flow Nasal Ca nnula Oxygen Flow Rate 40 Fraction of Inspir ed Oxygen 70 70 65 04/23/23 02:04 04/23/23 03:00 04/23/23 03:00 Temperature Pulse Rate Pulse Rate [Pulse Oximeter] 86 89 Respiratory Rate 22 22 Blood Pressure [Le ft Arm] 163/84 H 165/81 H Blood Pressure [Le ft Radial Artery] Pulse Oximetry 98 97 Oxygen Delivery Me thod High Flow Nasal Ca nnula High Flow Nasal Ca nnula Oxygen Flow Rate 40 40 Fraction of Inspir ed Oxygen 65 65 65 04/23/23 05:00 04/23/23 05:52 04/23/23 06:12 Temperature 98.1 F Pulse Rate Pulse Rate [Pulse Oximeter] 94 91 Respiratory Rate 26 H 24 Blood Pressure [Le ft Arm] 145/78 H 141/80 H Blood Pressure [Le ft Radial Artery] Pulse Oximetry 97 96 Oxygen Delivery Me thod High Flow Nasal Ca nnula High Flow Nasal Ca nnula Oxygen Flow Rate 40 40 Fraction of Inspir ed Oxygen 65 65 65 04/23/23 07:00 04/23/23 07:28 04/23/23 08:09 Temperature 98.6 F Pulse Rate Pulse Rate [Pulse Oximeter] 92 Respiratory Rate 24 Blood Pressure [Le ft Arm] 136/72 Blood Pressure [Le ft Radial Artery] Pulse Oximetry 98 Oxygen Delivery Me thod High Flow Nasal Ca nnula Oxygen Flow Rate 40 40 Fraction of Inspir ed Oxygen 65 65 40 04/23/23 08:28 04/23/23 09:39 04/23/23 11:20 Temperature 97.5 F L Pulse Rate 96 Pulse Rate [Pulse Oximeter] 99 Respiratory Rate 22 Blood Pressure [Le ft Arm] 150/71 H Blood Pressure [Le ft Radial Artery] Pulse Oximetry 92 Oxygen Delivery Me thod High Flow Nasal Ca nnula Oxygen Flow Rate 40 Fraction of Inspir ed Oxygen 40 30 04/23/23 11:23 Temperature Pulse Rate Pulse Rate [Pulse Oximeter] Respiratory Rate Blood Pressure [Le ft Arm] Blood Pressure [Le ft Radial Artery] Pulse Oximetry Oxygen Delivery Me thod Oxygen Flow Rate Fraction of Inspir ed Oxygen 30 Documenting provider has reviewed patient's vital signs: yes DS: Data Data Completed and Pending Labs on day of discharge: Labs from last 24 hours 04/23/23 04/22/23 05:43 23:47 WBC 14.59 H RBC 3.33 L Hgb 10.0 L Hct 30.8 L MCV 93 MCH 30 MCHC 33 RDW Coeff of Alicia 12.4 Plt Count 393 Neut % (Auto) 85.0 H Lymph % (Auto) 7.7 L [place] % (Auto) 6.1 Eos % (Auto) 0.3 Baso % (Auto) 0.1 Neut # (Auto) 12.40 H Lymph # (Auto) 1.10 [place] # (Auto) 0.90 Eos # (Auto) 0.00 Baso # (Auto) 0.00 Abs Immat Gran (auto) 0.10 Imm/Tot Granulo (auto) 0.8 VBG pH 7.427 7.316 L VBG pCO2 31 L 42 VBG pO2 98.4 H 37.8 VBG HCO3 21 22 Sodium 132 L Potassium 3.0 L Chloride 108 Carbon Dioxide 19 L Anion Gap 5 L BUN 13 Creatinine 0.6 Estimated Creat Clear 43.77 Estimated GFR 99 Glucose 103 Lactate 1.0 Calcium 7.7 L Phosphorus 2.7 Magnesium 2.0 Total Bilirubin 0.4 Direct Bilirubin 0.0 AST 35 ALT 20 Alkaline Phosphatase 133 Troponin I 0.02 C-Reactive Protein 15.6 H NT-Pro-B Natriuret Pep [id number] Total Protein 5.5 L Albumin 2.4 L Procalcitonin 0.94 H TSH 3.130 Preliminary micro results at discharge 04/21/23 07:55 Blood Culture - Preliminary Blood NO GROWTH AFTER 48 HOURS 04/21/23 07:48 Blood Culture - Preliminary Blood NO GROWTH AFTER 48 HOURS Imaging Chest x-ray: Attestation: I have reviewed the pertinent imaging results. Radiologist's impression: Before midnight 04/22/23: IMPRESSION: Interval complete opacification of the left hemithorax with leftward mediastinal and tracheal shift suggesting volume loss related to atelectasis/mucus plugging. Additional underlying pleural effusion or airspace process (aspiration, hemorrhage, pneumonia) are not excluded. Similar to slight increase in masslike airspace opacity in the right lower lung. 04/21/2023: IMPRESSION: Masslike area of consolidation within the medial right lung base, may represent pneumonia in the correct clinical setting. An underlying pulmonary mass or nodule cannot be excluded. If there is concern for infection, recommend follow-up imaging after treatment to ensure resolution. If there is no concern for infection, recommend chest CT for further evaluation. Possible additional focus of infection versus scarring or atelectasis within the retrocardiac left lower lobe. Pelvic x-ray: Attestation: I have reviewed the pertinent imaging results. Radiologist's impression: 04/21/2023: IMPRESSION: 1. No acute osseous injuries or abnormalities are noted. CT scan - head: Attestation: I have reviewed the pertinent imaging results. Radiologist's impression: 04/21/2023: IMPRESSION: No acute intracranial process per unenhanced head CT. Discharge Plan Discharge Disposition: [facility] Discharge Location: [facility] Date of Admission: 04/21/23 08:31 Attending Provider on Discharge: Wilmer Velásquez Primary Care Provider: David Sparks Condition: Guarded Discharge Orders: Transfer of Care to Other Hospital (ORDER); Ordered 04/23/23 Ordered By: Wilmer Velásquez Discharge Comments: Humidified High Flow Oxygen 40 LPM, FiO2 30%, SaO2 92% Oxygen: Yes Oxygen Delivery Method: Humidified High Flow oxygen Oxygen Flow Rate: 40 Urinary Catheter: No Services not available here: Pulmonary services, flexible bronchoscopy
--- NOTE | 2023-04-23 13:08 | PC.NURSE ---
SON HERMES HERE VISITING AND UPDATED REGARDING PATIENT'S NEED FOR TRANSFER. PATIENT HAS NEEDED REMINDERS TO KEEP HIGH FLOW OXYGEN ON THROUGHOUT THE SHIFT TODAY. SHE WAS NOTED TO BE MORE ALERT JUST BEFORE LUNCH THOUGH LESS ALERT AFTER GETTING BACK INTO BED AFTER USING COMMODE. STOREROOM ATTENDANT ASKED PATIENT TO LIFT HER HEAD UP THOUGH PATIENT WAS NONCOMPLIANT AND WAS NOTED TO HAVE EYES CLOSED. PATIENT NOTED TO BE BOTH CONTINENT AND INCONTINENT OF BLADDER TODAY. SHE CONTINUES ON IV FLUID PER CURRENT ORDER IN PLACE. NO C/O N/V OR CP NOTED. NO VERBAL OR NONVERBAL INDICATIONS OF PAIN HAVE BEEN NOTED. RT SAW PATIENT THIS MORNING. BIPAP DID NOT HAVE TO BE UTILIZED PATIENT WAS ABLE TO COUGH UP SOME MUCUS THAT WAS THEN ABLE TO BE SUCTIONED. O2 SAT RETURNED TO 95% ON HIGH FLOW OXYGEN. PATIENT PIVOT TRANSFERRING WITH EXTENSIVE ASSIST OF 2 USING WALKER AND GB.
--- NOTE | 2023-04-23 14:48 | PC.NURSE ---
END OF SHIFT NOTE: PATIENT HAS BEEN CONFUSED FOR MOST OF THE SHIFT. SHE HAS NOT BEEN ALERT ENOUGH TO SAFELY EAT OR TAKE MEDS PO. PATIENT HAS HAD NO VERBAL OR NONVERBAL SIGNS OF PAIN NOTED THIS SHIFT. CIWA SCORES OF 7 AND 4 NOTED THIS SHIFT PATIENT HAD ONE BRIEF EPISODE OF ANXIETY BELIEVING STAFF WERE DROPPING HER WHEN STAFF WERE MOVING BED. SHE HAS BEEN AN EXTENSIVE ASSIST OF 2 [place] [facility] [place] PATIENT HAS BEEN BOTH CONTINENT AND INCONTINENT OF BLADDER. BLOOD GLUCOSE VALUES OF 75 AND 95 THIS SHIFT. PATIENT REMAINS ON IV ABX AND LUNG SOUNDS REMAIN DIMINISHED THROUGHOUT PATIENT HAS MUCUS IN LUNGS THAT SHE NEEDS TO COUGH UP THOUGH LACKS THE EFFORT TO DO SO. RT SAW PATIENT THIS MORNING AND PATIENT REMAINS ON HIGH FLOW OXYGEN. PATIENT WILL BE TRANSFERRING TO [facility] ROOM 2313 THIS AFTERNOON. EMS PROVIDING TRANSPORTATION. CAREER ADVISOR HAS UPDATED BOTH DAUGHTER CARLOS AND SON HERMES. NO BM NOTED THIS SHIFT. PATIENT HAS HAD NO N/V NOTED. SHE REMAINS ON D5W NS.
[2023-04-23] MEDS: ACETAMINOPHEN 325 MG TABLET 650 MG PO (15:27)
--- NOTE | 2023-04-23 16:21 | PC.NURSE ---
PATIENT TRANSFERRED TO [facility]IA [facility] AFTER 1530 TODAY. ALL BELONGINGS REMOVED FROM ROOM AND SENT WITH PATIENT. FAMILY AWARE OF PATIENT BEING TRANSFERRED ALONG WITH NEW ROOM NUMBER.
== END 2023-04-23 15:38 | disposition short-term general hospital (02) | DRG 871 ==
LOC: ED 04-21 02:43 → MEDSURG 04-21 03:10
PROVIDERS: Family Medicine; Internal Medicine; Physician Assistant; Admitting Provider Emergency Medicine; Emergency Provider Family Medicine; PCP Family Medicine; Visit Provider Emergency Medicine
DX: A41.9 Sepsis, unspecified organism (principal); J18.9 Pneumonia, unspecified organism; J96.01 Acute respiratory failure with hypoxia; E87.1 Hypo-osmolality and hyponatremia; G93.40 Encephalopathy, unspecified; W18.30XA Fall on same level, unspecified, initial encounter; Z91.81 History of falling; E11.65 Type 2 diabetes mellitus with hyperglycemia; D64.9 Anemia, unspecified; I10 Essential (primary) hypertension; E87.6 Hypokalemia; E83.51 Hypocalcemia; F10.10 Alcohol abuse, uncomplicated; J98.09 Other diseases of bronchus, not elsewhere classified; R79.89 Other specified abnormal findings of blood chemistry; R42 Dizziness and giddiness; R53.1 Weakness; I44.7 Left bundle-branch block, unspecified; R29.6 Repeated falls; T42.6X5A Adverse effect of other antiepileptic and sedative-hypnotic drugs, initial encounter; R74.8 Abnormal levels of other serum enzymes; E86.0 Dehydration; M54.2 Cervicalgia; R51.9 Headache, unspecified; W19.XXXA Unspecified fall, initial encounter; Y92.009 Unspecified place in unspecified non-institutional (private) residence as the place of occurrence of the external cause; Z79.4 Long term (current) use of insulin; G40.909 Epilepsy, unspecified, not intractable, without status epilepticus; F17.211 Nicotine dependence, cigarettes, in remission
CPT/HCPCS: 36415; 51798; 70450; 70496; 70498; 71045; 72125; 72170; 80048; 80053; 80076; 81001; 82140; 82270; 82803; 82947; 82962; 83036; 83605; 83690; 83735; 83880; 84100; 84145; 84295; 84443; 84484; 85025; 86140; 87040; 87070; 87081; 87086; 87631; 87899; 93005; 94664; 97116; 97162; 97166; 99285; 99291; G0427; A9270; J0456; J0692; J1650; J1953; J2060; J2543; J2560; J3370; J7030; J7042; J7050; J7120; Q9967

== ENCOUNTER 2023-04-23 15:15 | Outpatient (CLI) | payer MEDICARE, SELFPAY ==
--- OUTSIDE RECORDS SUMMARY | 2023-04-29 14:12 | XMS_ITS | Patient Health Record ---
Author Name Unknown Organization Unknown Care Team Providers Care Commercial Representative Name Role Phone David Sparks MD Primary Care Provider Hattie chatterjee Reynaldo Yasmeen Unavailable [phone] ALLERGIES Allergen (clinical drug ingredient) Drug/Non Drug Allergy documented on EMR Reaction Allergy Type Onset Date Status aspirin Aspirin Asa/extra Strength Antacid (aspirin, buffered) Drug Allergy Active phenytoin Dilantin gingival hyperplasia Drug Allergy Active hydrochlorothiazide Hydrochlorothiazide low sodium D rug Allergy Active carbamazepine Tegretol Unknown Drug Allergy Active REASON FOR REFERRAL No Information MEDICATIONS Medication SIG (Take, Route, Frequency, Duration) Notes Start Date End Date Status levETIRAcetam 750 MG 1 tablet Orally Twi ce a day for 90 days Active Gabapentin 600 MG 1 tablet in AM and 1 .5 tablet in PM Orally neuropathy Active Lacosamide 100 MG 1 tablet Orally Twic e a day for 90 days Active Calcium + D 600 MG (1,500)-200 UNIT 1 tablet Orally twice a day (bid) Active LORazepam 1 MG 1 tablet each time i f needed Orally for seizures lasting greater than 3 minutes Active diazePAM 5 MG/5ML 1 mL each time if needed Orally for seizures lasting greater than 3 minutes with loss of consciousness Active Insulin Aspart 100 UNIT/ML 7-10 units three times daily with meals per home sliding scale Subcutaneous Active Lisinopril 10 MG 1 tablet Orally Once a day Active Lantus SoloStar 100 UNIT/ML Inject 15 Units subcutaneous before bedtime Active Metoprolol Succinate ER 200 MG 1 tablet Orally Once a day Active Norvasc 10 MG 1 tablet Orally Once a day Active Sertraline HCl 50 MG 1 tablet Orally Onc e a day Active Lipitor 10 MG 1 tablet Orally Once a day for 30 day(s) Active Fosamax 70 MG 1 TABLET BY MOUTH 1 TIME A WEEK IN THE MORNING ON AN EMPTY STOMACH AND WITH FULL GLASS OF WATER. DO NOT LIE DOWN FOR 1 HOUR Active Encounters Encounter Location Date Provider Diagnosis [facility] [address] [place] [address] 01/31/2023 Yasmeen Jacobs PLAN OF TREATMENT No Information Insurance Providers Payer Name Payer Address Payer Phone Subscriber Number Group Number Insured Name Patient Relationship to Insured Coverage Start Date Coverage End Date [facility] [id number] [address] [address] [place], [place] [id number] Bella Jones Self - patient is the insured MEDICAL (GENERAL) HISTORY Medical History History ICD Code Essential hypertension Osteoporosis Tobacco use disorder Type I diabetes mellitus Contracture of palmar fascia Coronary atherosclerosis of unspecified type of vessel, [place] or graft Depressive disorder Hyposmolality and/or hyponatremia Pure hypercholesterolemia Reflux esophagitis Surgical History Surgery Date(Month/Year) Appendectomy Cholecystectomy Tubal ligation Spine surgery Trigger finger release Conization cervix Hospitalization History Reason Date(Month/Year) Seizure related hospitalizations: [facility], 02/03/2019 - 02/06/2019
== END 2023-04-23 15:16 | disposition home or self-care (01) ==
LOC: AMB 04-29 14:11
PROVIDERS: PCP Family Medicine; Visit Provider Family Medicine
DX: J18.9 Pneumonia, unspecified organism (principal); R53.1 Weakness
CPT/HCPCS: A0425; A0434

== ENCOUNTER 2023-10-10 16:38 | Emergency (ER) | payer MEDICARE, SELFPAY ==
--- OUTSIDE RECORDS SUMMARY | 2023-10-10 16:42 | XMS_ITS | Clinical Summary ---
Author Name Unknown Organization [facility] Address [address] [place] [address] Care Team Providers Care Ekg Monitor Name Role Phone Elsewhere, Pcp Primary Care Provider Unavailabl e Source Comments Patient records contain information from all sites at [facility]. For routine questions regarding patient records, call [phone] during business hours, M-F 8:00 AM - 5:00 PM Central Time. Record requests for emergency care only can be directed to [phone] at any time.[facility] Allergies Active Allergy Reactions Criticality Noted Date Comments Aspirin, Buffered Other (see comments) 01/19/20 07 Hydrochlorothiazide Other (see comments) Medium 2006 low sodium Phenytoin Other (see comments) 01/18/2007 Gingival Hyperplasia Carbamazepine Other (see comments) 01/18/2007 --- Medications Medication Sig Dispensed Refills Start Date End Date Status alendronate (FOSAMAX) 70 mg tablet Take 70 mg by mouth once a week. 0 08/20/2018 Active atorvastatin (LIPITOR) 10 mg tablet Take 20 mg by mouth daily. 0 08/20/2018 Active blood sugar diagnostic strips TEST FOUR TIMES DAILY 0 09/06/2018 Active gabapentin (NEURONTIN) 600 mg tablet TAKE 1 AND ONE-HALF TABLETS BY MOUTH AT BEDTIME AND 1 TABLET EVERY MORNING 0 08/20/2018 Active insulin glargine (LANTUS) 100 unit/mL injection Inject 12 Units under the skin daily. 0 08/20/2018 Active levETIRAcetam (KEPPRA) 750 mg tablet Take 750 mg by mouth 2 (two) times a day. 0 08/20/2018 Active lisinopril (PRINIVIL,ZESTRIL ) 20 mg tablet Take 20 mg by mouth daily. 0 01/23/2018 Active metoprolol succinate (TOPROL-XL) 200 mg 24 hr tablet Take 200 mg by mouth. 0 10/23/2018 Active sertraline (ZOLOFT) 50 mg tablet Take 50 mg by mouth daily. 0 08/20/2018 Active insulin syringe-needle U-100 0.3 mL 31 gauge x 5/16 syringe For administering insulin at home. 0 08/20/2018 Active lacosamide (VIMPAT) 100 mg tablet Take 100 mg by mouth 2 (two) times a day. 0 Active IP RX HUMAN REGULAR INSULIN 100 UNITS/ML CORRECTION SCALE PANEL Sliding scale per patient 0 04/03/2022 Active midazolam (NAYZILAM) 5 mg/spray (0.1 mL) spray,non-aerosol nasal spray Administer into nostril(s). 0 04/26/2022 Active albuterol 90 mcg/actuation inhaler Inhale 2 puffs every 6 (six) hours as needed for wheezing. 18 g 11 09/15/2022 Active tiotropium (Spiriva with HandiHaler) 18 mcg inhalation capsule Inhale 1 capsule (18 mcg total) daily. Using the HandiHaler device. 90 capsule 3 09/15/2022 Active diclofenac sodium (VOLTAREN) 1 % gel Apply 4 g topically 4 (four) times a day for 10 days. Apply to sternum. 100 g 0 09/15/2022 Active aspirin [address] tablet Take 1 tablet (81 mg total) by mouth daily. 90 tablet 3 09/15/2022 Active meclizine (ANTIVERT) 25 mg tablet Take 25 mg by mouth 3 (three) times a day. 0 01/31/2023 Active clopidogreL (PLAVIX) 75 mg tablet Take 75 mg by mouth daily. 0 01/04/2023 Active diazePAM (Valium) 5 mg tablet Take 5 mg by mouth 2 (two) times a day as needed for anxiety (DIZZINESS). Take 1/2-1 tablet PO Twice daily PRN Dizziness 0 01/31/2023 Active nitroglycerin (NITROSTAT) 0.[address] 0.4 mg under the tongue every 5 (five) minutes as needed for chest pain. 0 Active multivitamin tablet Take 1 tablet by mouth daily. 0 Active Active Problems Problem Noted Date Diagnosed Date Atherosclerotic Heart Diseas e [place] Coronary Artery Without Angina Pectoris 09/15/2022 Depression Major Recurrent 08/03/2021 Fracture Radius Colles Closed Initial Right 05/03 Overview: Added automatically from request for surgery [id number] Osteoporosis 01/23/2018 Hypertension NOS Diabetes Mellitus Type 2 Encounters Date Type Department Care Team Description 09/18/2023 1:45 PM CDT Clinical Support Department of Rehabilitation Services in [address] [phone] Neno Call M.D. Beissel, Curtis J, P.T. Debility 09/18/2023 Clinical Communication Department of Rehabilitation Services in [address] [phone] Felipe Saravia, P.T. 09/13/2023 9:13 PM CDT - 09/13/2023 9:47 PM CDT Emergency [facility] [address] [place] [phone] Serafin Davidson, HeribertoAKacie. Pain Foot Right (Primary Dx) Discharge Disposition: Home or Self Care 09/08/2023 1:15 PM [facility] Clinical Support Department of Rehabilitation Services in [address] [phone] Neno Call M.D. Beissel, Curtis J, P.T. Debility 08/28/2023 1:45 PM [facility] Clinical Support Department of Rehabilitation Services in [address] [phone] Neno Call M.D. Beissel, Curtis J, P.T. Debility 08/21/2023 1:45 PM [facility] Clinical Support Department of Rehabilitation Services in [address] [phone] Neno Call M.D. Beissel, Curtis J, P.T. Debility 08/16/2023 2:15 PM [facility] Comprehensive Visit Department of Rehabilitation Services in [address] [phone] Parisa Byrd P.A.-C. Fogarty, Jennifer L, P.T. Debility (Primary Dx) 08/07/2023 Clinical Communication Department of Family Medicine, [facility], in [address] [phone] Elsewhere, Pcp from Last 3 Months Immunizations Name Administration Dates Next Due Influenza (IM) Preservative Free 06/11/2014 Influenza TIV (IM) 04/24/2017, 7,04/23/2013,2011,05/14/2005,04/12/2004 Influenza, Injectable, Quadrivalent 04/23/2019,1 Influenza, Quadrivalent, Adj uvanted, Preservative Free 04/07/2022 Influenza, Seasonal, Injectable 04/24/20 17,08/02/2016,04/23/2013,2011,05/14/2005,04/12/2004 Influenza, Unspecified 04/23/2019,05/02/2016, PCV13 01/23/2018 PCV20 04/07/2022 PPSV23(Discontinued) 03/05/1996 RZV (SHINGRIX) 10/19/2018,08/20/2018 SARS-COV-2 (COVID-19) - PFIZ ER (Discontinued)(12 years or older) 03/11/2021 Tdap 01/23/2018,10/23/2006 influenza vaccine quad (FLUZONE/FLUARIX) (6 months and older)(PF) 03/23/2020,04/27/2018 Family History Medical History Relation Name Comments Anesthesia problems Neg Hx Social History Tobacco Use Types Packs/Day Years Used Date Smoking Tobacco: Every Day Cigarettes 0.3 Passive Smoke Exposure: Current Smokeless Tobacco: Never Tobacco Cessation:Ready to Q uit: Not Asked; Counseling Given: Yes Alcohol Use Standard Drinks/Week Comments Yes 0 (1 standard drink = 0.6 oz pur e alcohol) occas PHQ-2 Answer Date Recorded PHQ-2 Score 0 09/03/2022 Nutrition Answer Date Recorded Nutrition: EVOO Fat Source Unknown 08/31 Nutrition: Servings of Fruits/Vegetables per Day Not on file 08/31/2020 Dental Answer Date Recorded Dental: Regular Dentist Unknown 09/01/19 Sex and Gender Information Value Date Recorded Sex Assigned at Not on file Gender Identity Not on file Sexual Orientation Not on file Last Filed Vital Signs Vital Sign Reading Time Taken Comments Blood Pressure 142/73 09/13/2023 9:45 PM CDT Pulse 70 09/13/2023 9:45 PM CDT Temperature 36.4 ??C (97.5 ??F) 09/13/2023 9:22 PM CD T Respiratory Rate 18 09/13/2023 9:45 PM CDT Oxygen Saturation 100% 09/13/2023 9:45 PM CDT Inhaled Oxygen Concentration - - Weight 47.2 kg (104 lb 0.9 oz) 09/13/2023 9:23 P M CDT Height 157.5 cm (5' 2.01) 09/15/2022 3:04 PM CD T Body Mass Index 19.03 09/15/2022 3:04 PM CDT Plan of Treatment Health Maintenance Due Date Last Done Comments CT Colonography 1956 Cologuard 1956 Colonoscopy 1956 Colorectal Cancer Screening 1956 Depression Monitoring (PHQ-9) 1956 Diabetic Office Visit with F oot Exam 1956 Dilated Eye Exam 1956 FIT 1956 Hemoglobin A1C 1956 Hepatitis C Screening 1956 Urine Albumin 1956 Hepatitis B Vaccines (1 of 3 - Risk 3-dose series) 2016 Mammogram 11/09/2022 11/09/2021, 11/09/2021 Office Visit for Blood Press ure Check / Re-check 12/16/2022 09/15/2022 COVID-19 Vaccine (2022-08 4 season) 2023 04/07/2022, 03/11/2021, 10/12/2020, Additional history exists Fall Risk Screen (Annual) 07/03/2023 Creatinine Level (Kidney Fun ction Test) 04/27/2024 10/09/2023, 04/27/2023, 04/26/2023, Additional history exists Sodium Level 04/27/2024 04/27/2023, 04/03, 04/24/2023, Additional history exists Potassium Level 04/29/2024 04/29/2023, 04/03, 04/27/2023, Additional history exists Tobacco Cessation counseling 05/01/2024 05/01/2023, 09/15/2022 Lipid (Cholesterol) Screening 11/02/2026, 12/08/2020, 08/20/2018 DTaP,Tdap,and Td Vaccines (3 - Td or Tdap) 01/24/2028 01/23/2018, 10/23/2006 Zoster Vaccines Completed 10/19/2018, 08/20/2018 Pneumococcal vaccine (65+ years) Completed 04/07/2022, 01/23/2018, 03/05/1996 Influenza Vaccine Completed 03/15/2023, , 03/23/2020, Additional history exists Medical Devices Implanted Type Area Bonding Equipment Operator Device Identifier Shelf Expiration Date Model / Serial / Lot Plt Wrst Dvr Rt 3h 24.4x51.3 - [id number] Implanted:Qty : 1 on 05/26/2021 by Jorden Tineo M.D. at [facility] [employer] pins/screws/ rods [employer] [id number] / / 07.05.20. [address] S[address] Sngl 1.6x127 - [id number] Implanted:Qty : 1 on 05/26/2021 by Jorden Tineo M.D. at [facility] [employer] pins/screws/ rods [employer] [id number] / / 07.05.20. 319 Sc[address] Dvr Fthrd 3.5x12 - [id number] Implanted:Qty : 2 on 05/26/2021 by Jorden Tineo M.D. at [facility] [employer] pins/screws/ rods [employer] [id number] / / 07.05.20. 319 Peg Fix Dvr Pthrd Lng 2.5x22 - [id number] Implanted:Qty : 3 on 05/26/2021 by Jorden Tineo M.D. at [facility] [employer] pins/screws/ rods Right: Wrist [employer] [id number] / / 07.05.20. 319 Peg Fix Dvr Pthrd Lng 2.5x16 - [id number] Implanted:Qty : 1 on 05/26/2021 by Jorden Tineo M.D. at [facility] [employer] pins/screws/ rods Right: Wrist [employer] [id number] / / 07.05.20. 319 Peg Fix Dvr Smth Lng 2.0x18 - [id number] Implanted:Qty : 3 on 05/26/2021 by Jorden Tieno M.D. at [facility] [employer] pins/screws/ rods Right: Wrist [employer] [id number] / / 07.05.20. 319 Scrw Dvr Fthrd 3.5x13 - [id number] Implanted:Qty : 1 on 05/26/2021 by Jorden Tineo M.D. at [facility] [employer] pins/screws/ rods [employer] [id number] / 07.05.20. 319 Care Teams Ekg Monitor Relationship Specialty Start Date End Date Elsewhere, Pcp PCP - General Family Medicine 03/11/21
--- OUTSIDE RECORDS SUMMARY | 2023-10-10 16:42 | XMS_ITS | Clinical Summary ---
Author Name Unknown Organization [facility] Address [place], [place] [address] Care Team Providers Care Medical Engineer Name Role Phone [facility] Care, Mauri Unavailable Raegan Dumont Unavailable Parisa Callahan Primary Care Provider [phone] Allergies Active Allergy Reactions Criticality Noted Date Comments Aspirin, Buffered Ecchymosis 01/18/2007 Phenytoin 01/18/2007 gingival hyperplasia Hydrochlorothiazide 01/18/2007 low sodium Carbamazepine 01/18/2007 Medications Medication Sig Dispensed Refills Start Date End Date Status flash glucose scanning reader miscIndications:Tiffany betes mellitus type 1, controlled, without complications (HC) As directed. 1 Device 0 Active blood sugar diagnostic (Contour Next Test Strips) stripIndications:Di abetes mellitus without complication (HC) TEST FOUR TIMES DAILY 400 Each 3 3 Active miscellaneous medical supply miscIndications:Hyp ertension As directed. Upper Arm Blood Pressure Cuff 1 unit 3 Active nitroglycerin (NITROSTAT) 0.4 mg sublingual tabletIndications:A SCVD (arteriosclerotic cardiovascular disease) Place 1 Tablet (0.4 mg) under the tongue every 5 minutes if needed for Chest Pain. Maximum of 3 doses, call 911 if no relief after second dose. 25 Tablet 1 3 Active continuous glucose monitor SENSOR KIT (FREESYLE TWYLA)Indications:T ype 1 diabetes mellitus without complications (HC) To be used to read blood sugars per industrial order clerk's directions. 1 Each 3 Active insulin syringe-needle u-100 0.3 mL 31 gauge x 5/16Indications:Di abetes mellitus without complication (HC) USE FOUR TIMES DAILY TO ADMINISTER AT HOME 400 Each 3 3 Active FreeStyle Twyla 14 Day SensorIndications:T ype 1 diabetes mellitus without complications (HC) CHANGE SENSOR EVERY 14 DAYS 6 Each 3 3 Active nicotine 21 mg/24 hr (NICODERM; HABITROL) 21 mg/24 hr patchIndications:Alison pulido nicotine dependence with withdrawal Apply 1 Patch on dry, clean, hairless skin once daily. 0 3 Active acetaminophen (TYLENOL) 325 mg tabletIndications:P ain Take 2 Tablets (650 mg) by mouth every 6 hours if needed for Pain. Max acetaminophen dose: 4000mg in 24 hrs. 0 3 Active aspirin (ECOTRIN) 81 mg enteric coated tabletIndications:P [facility] care Take 1 Tablet (81 mg) by mouth once daily with a meal. 0 3 Active folic acid 1 mg tabletIndications:[facility] Take 1 Tablet (1 mg) by mouth once daily. 0 3 Active thiamine (VITAMIN B1) 100 mg tabletIndications:[facility] Take 1 Tablet (100 mg) by mouth once daily. 0 3 Active insulin regular (NOVOLIN-R; HUMULIN-R) 100 unit/mL injection Per Sliding Scale If Blood Sugar is less than 70, call . If Blood Sugar is 200 to 249, give 1 Units. If Blood Sugar is 250 to 299, give 2 Units. If Blood Sugar is 300 to 349, give 3 Units. If Blood Sugar is 350 to 399, give 4 Units. If Blood Sugar is greater than 399, give 5 Units. If Blood Sugar is greater than 400, call 3 Active clopidogreL (PLAVIX) 75 mg tabletIndications:A SCVD (arteriosclerotic cardiovascular disease) Take 1 Tablet (75 mg) by mouth once daily. Take one year uninterrupted. Do not stop unless directed by Cardiology. 30 Tablet 3 Active methocarbamoL (ROBAXIN) 500 mg tabletIndications:N onintractable epilepsy without status epilepticus, unspecified epilepsy type (HC) Take 0.5 Tablets (250 mg) by mouth every 6 hours if needed (epilepsy). 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 60 Tablet 3 Active LORazepam (ATIVAN) 0.5 mg tabIndications:Anxi ety Take 1 Tablet (0.5 mg) by mouth every 6 hours if needed for Anxiety. 20 Tablet 3 Active alendronate (FOSAMAX) 70 mg tabletIndications:A ge-related osteoporosis with current pathological fracture with routine healing, subsequent encounter Take 1 Tablet (70 mg) by mouth once a week in the morning. Take on empty stomach with full glass of water. Do not lie down for 1 hr. 12 Tablet 3 3 Active medication order composerIndications :Poor weight gain in adult Medline Gelatein 20 High protein gelatin- 4 fluid ounce cups-Eat 1 serving (4 oz) daily. 90 unit 3 3 Active insulin glargine, U-100, (Lantus U-100 Insulin) 100 unit/mL injectionIndication s:Type 1 diabetes mellitus with complications (HC) INJECT SUBCUTANEOUSLY 14 UNITS AT BEDTIME 30 mL 3 3 Active lisinopriL (PRINIVIL; ZESTRIL) 5 mg tabletIndications:H TN (hypertension) Take 1 Tablet (5 mg) by mouth once daily. 90 Tablet 2 4 Active gabapentin (NEURONTIN) 600 mg tabletIndications:O ther diabetic neurological complication associated with type 1 diabetes mellitus (HC) Take 600 in the AM and Take 900 mg at Bedtime 225 Tablet 4 Active levETIRAcetam (KEPPRA) 750 mg tabletIndications:N onintractable epilepsy without status epilepticus, unspecified epilepsy type (HC),Seizure disorder (HC) TAKE 1 TABLET BY MOUTH TWICE DAILY 200 Tablet 4 Active tiotropium bromide (Spiriva Respimat) 2.5 mcg/actuation mist for inhalationIndicatio ns:COPD, moderate (HC) Inhale 2 Puffs by mouth once daily. 4 g 11 4 08/03/19 25 Active sertraline (ZOLOFT) 50 mg tabletIndications:D epression with anxiety TAKE 1 TABLET BY MOUTH DAILY 90 Tablet 1 4 Active atorvastatin (LIPITOR) 20 mg tabletIndications:H yperlipidemia LDL goal <100 Take 1 Tablet (20 mg) by mouth at bedtime. Please call [phone] 2 months in advance to schedule an office visit due in December 2023 90 Tablet 4 Active metoprolol succinate (TOPROL XL) 100 mg Sustained-Release tabletIndications:H ypertension, unspecified type,Coronary artery disease, unspecified vessel or lesion type, unspecified whether angina present, unspecified whether [place] or transplanted heart,Cardiomyopath y, unspecified type (HC) Take 1.5 Tablets (150 mg) by mouth once daily. Additional refills require cardiology appt. Please call [phone] to schedule 135 Tablet 4 Active cephalexin (KEFLEX) 500 mg capsuleIndications: Cellulitis of right foot Take 1 Capsule (500 mg) by mouth three times daily. 21 Capsule 4 Active insulin regular (HumuLIN R Regular U-100 Insuln) 100 unit/mL injectionIndication s:Type 1 diabetes mellitus with complications (HC) Inject 7 units subcutaneous three times daily. 30 mL 1 4 Active HYDROcodone-acetami nophen (5-325 mg/tablet)Indicatio ns:Foot ulceration, right, with unspecified severity (HC),Injury of right shoulder, initial encounter,Elbow injury, right, initial encounter Take 0.5-1 Tablets by mouth 3 times daily if needed for Pain. Max acetaminophen dose: 4000 mg in 24 hrs. 15 Tablet 4 Active insulin regular (HumuLIN R Regular U-100 Insuln) 100 unit/mL injectionIndication s:Type 1 diabetes mellitus with complications (HC) Inject 7 units subcutaneous three times daily. 30 mL 3 09/21/19 24 Discontinu ed(Reorder (E-cancel not sent)) methocarbamoL (ROBAXIN) 500 mg tabletIndications:N onintractable epilepsy without status epilepticus, unspecified epilepsy type (HC) Take 0.5 Tablets (250 mg) by mouth four times daily. 30 Tablet 3 09/23/19 24 Discontinu ed(*Med complete/R egimen complete/L evel of care change) cephalexin (KEFLEX) 500 mg capsuleIndications: Cellulitis of right foot Take 1 Capsule (500 mg) by mouth three times daily for 7 days. 21 Capsule 4 09/21/19 24 Discontinu ed(Reorder (E-cancel not sent)) HYDROcodone-acetami nophen (5-325 mg/tablet)Indicatio ns:Foot ulceration, right, with unspecified severity (HC),Injury of right shoulder, initial encounter,Elbow injury, right, initial encounter Take 0.5-1 Tablets by mouth 3 times daily if needed for Pain. Max acetaminophen dose: 4000 mg in 24 hrs. 15 Tablet 4 09/28/19 24 Discontinu ed(Reorder (E-cancel not sent)) HYDROcodone-acetami nophen (5-325 mg/tablet)Indicatio ns:Foot ulceration, right, with unspecified severity (HC),Injury of right shoulder, initial encounter,Elbow injury, right, initial encounter Take 0.5-1 Tablets by mouth 3 times daily if needed for Pain. Max acetaminophen dose: 4000 mg in 24 hrs. 15 Tablet 4 10/10/19 24 Discontinu ed(Reorder (E-cancel not sent)) Active Problems Problem Noted Date Diagnosed Date Toxic encephalopathy 05/02/2023 Type 1 diabetes 05/02/2023 Closed fracture of first thoracic vertebra 04/24 Peripheral vertigo 02/02/2023 Recurrent falls 02/02/2023 ASCVD (arteriosclerotic cardiovascular disease) 01/04/2023 Overview: S/P RCA drug eluting stent 01/04/23 Osteoporosis 01/23/2018 Unspecified essential hypertension Unspecified epilepsy without mention of intractable epilepsy Tobacco use disorder Resolved Problems Problem Noted Date Diagnosed Date Resolved Date Community acquired pneumonia 05/02/2023 09/23/2023 Pleural effusion 05/02/2023 09/23/2023 Acute respiratory failure 04/23/2023 Dizziness 02/02/2023 09/23/2023 Atherosclerotic heart diseas e of [place] coronary artery without angina pectoris 09/15/2022 09/23/2023 Protein-calorie malnutrition 08/03/2021 09/23/2023 Osteomyelitis of great toe of right foot 08/03/2021 09/23/2023 Depression, recurrent 08/03/20212023 DIABETES 05/24/2002 09/23/2023 Encounters Date Type Department Care Team Description 10/10/2023 Refill [facility] [address] [place] [address] Lakisha Mcclure MD Refill Request 10/10/2023 Telephone [facility] [address] [place] [address] Jordy Dash MD 10/09/2023 3:30 PM CDT Ancillary Procedure [facility] [address] [place] [address] Arrived 10/09/2023 3:15 PM CDT Orders Only [facility] [address] [place] [address] Lab, [facility] 10/09/2023 1:00 PM CDT Office Visit [facility] [address] [place] [address] Jordy Dash MD CV V[facility] New ([place] Consult; lower extremity PAD. Referred by HUGH Oseguera, all records in EPIC. CTA not needed per Dr. Dash, U/Ss available in [facility]) 10/09/2023 Travel 10/04/2023 Telephone [facility] [address] [place] [address] Jordy Dash MD Referral 09/29/2023 Telephone [facility] [address] [place] [address] Edson Price MD Referral 09/28/[address] [facility] [address] [place] [address] Fannie Rubin PA <No scans attached> 09/28/2023 Telephone [facility] [address] [place] [address] Parisa Callahan PA Results 09/28/2023 Orders Only [facility] [address] [place] [address] Parisa Callahan PA <No scans attached> 09/27/2023 7:06 AM CDT - 09/27/2023 11:59 PM CDT Hospital Encounter [facility] [address] [facility] [address] [place] [address] Parisa Callahan PA Claudication of both lower extremities (HC) 09/27/2023 Travel 09/21/2023 2:00 PM CDT Ancillary Procedure [address] [address] 09/21/2023 1:45 PM CDT Ancillary Procedure [address] [address] 09/21/2023 1:30 PM CDT Ancillary Procedure [address] [address] 09/21/2023 12:50 PM CDT Office Visit [facility] [address] [place] [address] Parisa Callahan PA Foot Pain/problem (Bilateral foot pain-so bad she can't sleep); Shoulder Pain/problem (Fell a week ago and hurt right shoulder) 09/21/2023 Travel 09/20/[address] [address] Parisa Callahan PA Refill Request (Humulin R Regular U-100 Insuln) 09/11/2023 Nurse Triage [facility] [address] [place] [address] Parisa Callahan PA Foot Pain/problem 09/11/2023 Telephone [facility] [address] [place] [address] Parisa Callahan PA Follow Up (message) 09/08/2023 Telephone [facility] [address] [place] [address] Darian Garcia MBBS Results (CT) 09/08/2023 Orders Only [facility] [address] [place] [address] Darian Garcia MBBS <No scans attached> 09/02/2023 Orders Only [facility] [address] [facility] [place] [address] [facility] <No scans attached> 08/21/2023 Refill [facility] [address] [place] [address] Dov Willard MD Refill Request (Metoprolol Succinate) 08/11/2023 Refill [facility] [address] [place] [address] Dov Willard MD Refill Request (Atorvastatin) 08/07/2023 Telephone [facility] [address] [place] [address] Parisa Callahan PA Outside Order 08/05/2023 Refill [facility] [address] [place] [address] Parisa Callahan PA Refill Request (Sertraline) 08/04/2023 1:30 PM CONSTRUCTION ECONOMIST Office Visit [facility] [address] [place] [address] Darian Garcia MBBS Follow Up (Pleural effusion/COPD) 08/04/[address] [place] [address] [place], [facility] Cancer 08/04/2023 Travel 08/03/2023 Refill [facility] [address] [place] [address] Parisa Callahan PA Refill Request (Levetiracetam) 07/27/2023 11:40 AM CONSTRUCTION ECONOMIST Office Visit [facility] [address] [place] [id number] Follow Up 07/27/2023 10:42 AM CONSTRUCTION ECONOMIST - 07/27/2023 11:59 PM CONSTRUCTION ECONOMIST Hospital Encounter [facility] [address] [place] [address] Referring, Provider Unspecified fracture of unspecified thoracic vertebra, subsequent encounter for fracture with routine healing 07/27/2023 Travel 07/21/2023 Telephone [facility] [address] [place] [address] Parisa Callahan PA Refill Request (gabapentin) from Last 3 Months Immunizations Name Administration Dates Next Due COVID-19 vaccine (Vaavud-Bio NTech 30mcg/0.3mL) 12YO+ BIVALENT PF, MDV 04/07/2022 COVID-19 vaccine (Pfizer-Bio NTech 30mcg/0.3mL) PF, MDV 10/12/2020,09/21/2020 Influenza Virus, Unspecified 04/23/2019,05/02/20 16,04/29/2015 Influenza, IIV3 (Age 6-35 mos) 06/11/2014 Influenza, IIV3 (Age >=3 years) 04/24/20 17,08/02/2016,04/23/2013,2011,05/14/2005,04/12/2004 Influenza, IIV4 03/23/2020 Influenza, IIV4 (=>6mos) MDV 04/23/2019,04/30/20 18 Influenza, Inactivated AIIV4 (Age 65+ Years) Preserv Free 03/15/2023,04/07/2022 Pneumococcal Conj 20-valent (Prevnar 20) 04/07/2022 Pneumococcal Poly,23-Valent (Pneumovax) 03/05/1996 Pneumococcal conj 13-Valent (Prevnar 13) 01/23/2018 Tdap 01/23/2018,10/23/2006 Zoster (Shingrix-RZV, recombinant) 10/19/2018, Family History Medical History Relation Name Comments Heart Disease Brother Frank hx triple bypa ss 3 times Heart Disease Father age 76 Diabetes Mother Diabetes Sister Jeannie oc renal c omlications Cancer-breast No Family History Cancer-ovarian No Family History Relation Name Status Comments Brother Frank Father Mother Sister Jeannie Social History Tobacco Use Types Packs/Day Years Used Date Smoking Tobacco: Every Day Cigarettes 0.3 30.7 Started: 01/10/1993 Smokeless Tobacco: Never Tobacco Cessation:Ready to Q uit: Not Asked; Counseling Given: Not Answered Comments:Less than a pack a day- 10/09/2023 Alcohol Use Standard Drinks/Week Comments Yes 0 (1 standard drink = 0.6 oz pur e alcohol) occasionally beer PHQ-2 Answer Date Recorded PHQ-2 TOTAL SCORE 5 01/10/2023 Social Connections Answer Date Recorded Frequency of Communication with Friends and Fami ly 0 01/10/2023 Financial Resource Strain Answer Date R ecorded Difficulty of Paying Living Expenses Not on file 04/28/2023 Difficulty of Paying Living Expenses 3 04/28/2023 Food Insecurity Answer Date Recorded Worried About Running Out of Food in the Last Ye ar 1 01/10/2023 Transportation Needs Answer Date Record ed Lack of Transportation (Medical) 1 01/10/2023 Housing Stability Answer Date Recorded Unable to Pay for Housing in the Last Year 1 01/10/2023 Sex and Gender Information Value Date Recorded Sex Assigned at Not on file Gender Identity Not on file Sexual Orientation Not on file Obstetrics History Last Filed Vital Signs Vital Sign Reading Time Taken Comments Blood Pressure 123/67 10/09/2023 1:03 PM CDT Pulse 73 10/09/2023 1:03 PM CDT Temperature 36.4 ??C (97.6 ??F) 05/01/2023 9:00 AM CD T Respiratory Rate 16 05/01/2023 9:00 AM CDT Oxygen Saturation 96% 10/09/2023 1:03 PM CDT Inhaled Oxygen Concentration - - Weight 46.7 kg (103 lb) 09/21/2023 12:53 PM CDT Height 156.2 cm (5' 1.5) 08/04/2023 1:17 PM CONSTRUCTION ECONOMIST Body Mass Index 19.15 08/04/2023 1:17 PM CONSTRUCTION ECONOMIST Plan of Treatment Upcoming Encounters Date Type Department Care Team (Late st Contact Info) Description 10/17/2023 3:15 PM CDT Office Visit [facility] [address] [place] [address] Huey Bal, MARIANNA [address] [place] [address] 10/18/2023 1:00 PM CDT Office Visit [facility] [address] [place] [address] 11/09/2023 1:30 PM CDT [facility] [address] [place] [address] Linsey Andrew MD [address] [place] [address] Health Maintenance Due Date Last Done Comments Fecal testing non-DNA (FIT,FOBT,iFOBT) for age 45-75 11/02/2022 11/02/2021 (Completed o [facility]), 11/29/2018 Medicare Wellness for age 65+ 11/03/2022 11/02/2021 Mammogram for age 45-75 11/09/2022 11/10/19, 01/23/2017, 09/10/2010 COVID-19 vaccine series ( season) 2023 04/07/2022, 03/11/2021, 10/12/2020, Additional history exists Depression screening for age 12+ 01/11/2024 01/10/2023, 11/02/2021, 11/02/2021, Additional history exists Influenza for age 65+ 03/03/2024 03/15/2023 , 04/07/2022, 03/23/2020, Additional history exists BMI (ht and wt on same day) for age 18+ 08/04/2024 08/04/2023, 03/15/2023, 02/15/2023, Additional history exists Lipids for age 45-75 11/02/2026 11/02/2021, 12/08/2020, 08/20/2018, Additional history exists Tetanus booster 01/24/2028 01/23/2018, 10/23/2006 Hepatitis C screening for ag e 18-79 Completed 01/04/2010 Tdap Completed 01/23/2018, 10/23/2006 Zoster (shingles) series for age 50+ Completed 10/19/2018, 08/20/2018 DEXA/DXA scan for age 65+ Completed 11/09/2021, Pneumococcal series for age 65+ Completed 04/07/2022, 01/23/2018, 03/05/1996 Procedures Procedure Name Priority Date/Time Associated Diagnosis Comments CT ANGIO ABDOMEN PELVIS LOWER EXTREMITY RUNOFF STAT 10/09/2023 4:14 PM CDT Severe peripheral arterial disease (HC) CREATININE,ISTAT Routine 10/09/2023 3:48 PM CDT Observation or evaluation for suspected condition US ARTERIAL SEG W TOE PRESSURES OH 09/27/2023 8:16 AM CDT Claudication of both lower extremities (HC) US ARTERIAL LOWER EXTREMITY RIGHT OH 09/27/2023 8:16 AM CDT Claudication of both lower extremities (HC) XR FOOT 3 VIEWS RIGHT Routine 09/21/2023 1:59 PM CDT Foot ulceration, right, with unspecified severity (HC) XR SHOULDER 3 VIEWS RIGHT Routine 09/21/2023 1:58 PM CDT Injury of right shoulder, initial encounter XR ELBOW 3 VIEWS RIGHT Routine 09/21/2023 1:58 PM CDT Elbow injury, right, initial encounter URINE ALBUMIN TO CREATININE RATIO, RANDOM Routine 09/21/2023 1:46 PM CDT Type 1 diabetes mellitus with complications (HC) RED CELL MORPHOLOGY Routine 09/21/2023 1 :35 PM CDT Foot ulceration, right, with unspecified severity (HC) PLATELET ESTIMATE Routine 09/21/2023 1:3 5 PM CDT Foot ulceration, right, with unspecified severity (HC) MANUAL DIFFERENTIAL Routine 09/21/2023 1 :35 PM CDT Foot ulceration, right, with unspecified severity (HC) CBC WITH AUTO DIFFERENTIAL Routine 09/21/2023 1:35 PM CDT Foot ulceration, right, with unspecified severity (HC) CBC WITH AUTO DIFFERENTIAL Routine 09/21/2023 1:35 PM CDT Foot ulceration, right, with unspecified severity (HC) C-REACTIVE PROTEIN Routine 09/21/2023 1: 35 PM CDT Foot ulceration, right, with unspecified severity (HC) HEMOGLOBIN A1C Routine 09/21/2023 1:35 PM CDT Type 1 diabetes mellitus with complications (HC) CT CHEST WO Routine 09/02/2023 1:50 PM CONSTRUCTION ECONOMIST Multiple lung nodules XR SPINE THORACIC 2 VIEWS Routine 07/27/2023 10:59 AM CONSTRUCTION ECONOMIST Unspecified fracture of unspecified thoracic vertebra, subsequent encounter for fracture with routine healing XR SPINE CERVICAL 3 VIEWS Routine 07/27/2023 10:58 AM CONSTRUCTION ECONOMIST Unspecified fracture of unspecified thoracic vertebra, subsequent encounter for fracture with routine healing XR MAMMO CASSIE BILAT SCREEN Routine 11/09/2021 3:31 PM CDT Visit for screening mammogram XR DXA BONE DENSITY 2 SITES AXIAL Routine 11/09/2021 3:30 PM CDT Osteoporosis, unspecified osteoporosis type, unspecified pathological fracture presence LIPID PANEL W REFLEX MEASURED LDL Routine 11/02/2021 1:10 PM CDT Hyperlipidemia LDL goal <100 OCCULT BLOOD IFOBT STOOL Routine 11/29/2018 3:36 PM CDT Screening for colorectal cancer ANTI HCV Routine 01/04/2010 1:58 PM CDT Exposure to hepatitis C from Last 3 Months or Most Recently Relevant to Health Maintenance Results * CT ANGIO ABDOMEN PELVIS LOWER EXTREMITY RUNOFF (10/09/2023 4:14 PM CDT) Anatomical Region Laterality Modality Abdomen, Pelvis, AORTA, LIVER, SPLEEN Computed Tomography 10/09/2023 4:42 PM CDT Impressions 10/09/2023 4:42 PM CDT 1. Right leg with 50 percent stenosis of the right common iliac artery origin, very small caliber right external iliac artery, focal non flow-limiting dissection of the central right common femoral artery, high-grade stenosis of the common femoral artery distally due to large Coral reef plaque which narrows the origins of the SFA and profunda femoral artery as well, multifocal stenosis of the SFA, with a severe/critical stenosis of the SFA near Maxx`s canal, additional multifocal moderate severity approximally disease in the above knee popliteal artery. The runoff is poorly evaluated, but heavily rim calcified, with disease in the TP trunk, posterior tibial artery predominantly. 2. Left lower extremity with approximately moderate severity, moderate length stenosis of the left common iliac artery due to calcified and noncalcified plaque, [id number] severity left Common femoral artery coral reef plaque, approximately 70 percent stenosis around Maxx`s canal, and approximally 50 percent multifocal stenosis of the popliteal artery. 2-3 vessel runoff on the left. 3. A nodular area with some linear aspect to it seen within the lingula measuring up to 11 mm, obscured by pleural effusions and opacities on the previous exam but deserves a follow-up chest CT in 3-6 months. Please note that all CT scans at this facility use dose modulation, iterative reconstruction, and/or weight-based dosing when appropriate to reduce radiation dose to as low as reasonably achievable. Dictated by Ender Denton MD @ 10/09/2023 4:42:38 PM (Electronically Signed) Narrative 10/09/2023 4:42 PM CDT For Patients: ??As a result of the Century Cures Act, medical imaging exams and procedure reports are released immediately into your electronic medical record. ??You may view this report before your referring provider. ??If you have questions, please contact your health care provider. INDICATION: Severe peripheral arterial disease. COMPARISON: Noncontrast CT of the chest dated 04/25/2023, and CT of the chest, abdomen, and pelvis with IV contrast dated 04/23/2023. TECHNIQUE: CTA with runoffs (CTA of the abdomen and pelvis, as well as bilateral lower extremities). 100 cc of Omnipaque 350. 3D reformats obtained at the request of the ordering provider, created on the local workstation, stored permanently into PACS and used for image interpretation FINDINGS: Severe peripheral arterial disease. No abdominal aortic aneurysm. Severe lung calcification in the abdominal aorta. Less than 50 percent stenosis of the right common iliac artery origin. Mild stenosis of the right internal iliac artery. Small caliber external iliac artery. Focal non flow-limiting dissection right common femoral artery (see image 187, series 5). High-grade stenosis of the common femoral artery distally due to large Cor[place] reef plaque. It narrows the origins of the SFA and profunda femoral artery as well. Multifocal stenosis of the SFA, with a severe/critical stenosis of the SFA near Maxx`s canal. Additional multifocal moderate severity approximally disease in the above knee popliteal artery. The runoff is poorly evaluated, but heavily rim calcified, with disease in the TP trunk, posterior tibial artery predominantly. Approximately moderate severity, moderate length stenosis of the left common iliac artery due to calcified and noncalcified plaque. The internal iliac artery is patent on the left. The external iliac artery has a better caliber on the left than on the right where it is very small in caliber perhaps related to the dissection. The posterior Coral reef plaque is not as severe on the left. Patent origins of the profunda femoral and SFA. Approximately 70 percent stenosis around Maxx`s canal, and approximally 50 percent multifocal stenosis of the popliteal artery. 2-3 vessel runoff on the left. Marked motion artifact is seen in the lung bases. There is a nodular area with some linear aspect to it seen within the lingula measuring up to 11 mm, obscured by pleural effusions and opacities on the previous exam but deserves a follow-up chest CT in 3-6 months. Distended urinary bladder. Injection granulomas anterior abdomen. Severe colonic stool burden. Arterial phase imaging limits evaluation of solid organs and bowel. Cholecystectomy clips. Non cirrhotic liver morphology. No obvious suspicious liver lesion. Kidneys enhance symmetrically without hydronephrosis. No splenomegaly. Adrenal glands appear unremarkable. No suspicious pancreatic lesion. No pancreatic ductal dilatation. No suspicious abnormality involving the uterus or adnexa. Multilevel degenerative changes in the axial skeleton. No aggressive appearing osseous lesion. Procedure Note Ender Denton MD - 10/09/2023 For Patients: As a result of the Cures Act, medical imagingexams and procedure reports are released immediately into your electronicmedical record. You may view this report before your referring provider.If you have questions, please contact your health care provider. INDICATION: Severe peripheral arterial disease. COMPARISON: Noncontrast CT of the chest dated 04/25/2023, and CT of thechest, abdomen, and pelvis with IV contrast dated 04/23/2023. TECHNIQUE: CTA with runoffs (CTA of the abdomen and pelvis, as well asbilateral lower extremities). 100 cc of Omnipaque 350. 3D reformatsobtained at the request of the ordering provider, created on the localworkstation, stored permanently into PACS and used for imageinterpretation FINDINGS: Severe peripheral arterial disease. No abdominal aortic aneurysm. Severelung calcification in the abdominal aorta. Less than 50 percent stenosis of the right common iliac artery origin.Mild stenosis of the right internal iliac artery. Small caliber externaliliac artery. 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 High-grade stenosis of the commonfemoral artery distally due to large Coral reef plaque. It narrows theorigins of the SFA and profunda femoral artery as well. Multifocalstenosis of the SFA, with a severe/critical stenosis of the SFA nearHunter`s canal. Additional multifocal moderate severity approximallydisease in the above knee popliteal artery. The runoff is poorlyevaluated, but heavily rim calcified, with disease in the TP trunk,posterior tibial artery predominantly. Approximately moderate severity, moderate length stenosis of the leftcommon iliac artery due to calcified and noncalcified plaque. The internaliliac artery is patent on the left. The external iliac artery has a bettercaliber on the left than on the right where it is very small in caliberperhaps related to the dissection. The posterior Coral reef plaque is notas severe on the left. Patent origins of the profunda femoral and SFA.Approximately 70 percent stenosis around Maxx`s canal, and [id number] percent multifocal stenosis of the popliteal artery. 2-3 vessel runoffon the left. Marked motion artifact is seen in the lung bases. There is a nodular areawith some linear aspect to it seen within the lingula measuring up to 11mm, obscured by pleural effusions and opacities on the previous exam butdeserves a follow-up chest CT in 3-6 months. Distended urinary bladder. Injection granulomas anterior abdomen. Severecolonic stool burden. Arterial phase imaging limits evaluation of solidorgans and bowel. Cholecystectomy clips. Non cirrhotic liver morphology.No obvious suspicious liver lesion. Kidneys enhance symmetrically withouthydronephrosis. No splenomegaly. Adrenal glands appear unremarkable. Nosuspicious pancreatic lesion. No pancreatic ductal dilatation. Nosuspicious abnormality involving the uterus or adnexa. Multileveldegenerative changes in the axial skeleton. No aggressive appearingosseous lesion. IMPRESSION: 1. Right leg with 50 percent stenosis of the right common iliac arteryorigin, very small caliber right external iliac artery, focal nonflow-limiting dissection of the central right common femoral artery,high-grade stenosis of the common femoral artery distally due to largeCoral reef plaque which narrows the origins of the SFA and profundafemoral artery as well, multifocal stenosis of the SFA, with asevere/critical stenosis of the SFA near Maxx`s canal, additionalmultifocal moderate severity approximally disease in the above kneepopliteal artery. The runoff is poorly evaluated, but heavily rimcalcified, with disease in the TP trunk, posterior tibial arterypredominantly. 2. Left lower extremity with approximately moderate severity, moderatelength stenosis of the left common iliac artery due to calcified andnoncalcified plaque, [id number] severity left Common femoral arterycoral reef plaque, approximately 70 percent stenosis around Maxx`scanal, and approximally 50 percent multifocal stenosis of the poplitealartery. 2-3 vessel runoff on the left. 3. A nodular area with some linear aspect to it seen within the lingulameasuring up to 11 mm, obscured by pleural effusions and opacities on theprevious exam but deserves a follow-up chest CT in 3-6 months. Please note that all CT scans at this facility use dose modulation,iterative reconstruction, and/or weight-based dosing when appropriate toreduce radiation dose to as low as reasonably achievable. Dictated by Ender Denton MD @ 10/09/2023 4:42:38 PM (Electronically Signed) Jordy Dash MD CT * (ABNORMAL) CREATININE,ISTAT (10/09/2023 3:48 PM CDT) Pathologist [facility] CREATININE, POCT 0.90 0.57 - 1.11 mg/dL 10/09/2023 3:50 PM CDT [facility] Comment:Caution: Patients ta mariaelena Hydroxyurea have falsely increased iStat Creatinine results. Verify creatinine results ordering a Creatinine (85660.2) eGFR 70(L) >90 mL/min/1.7 3m2 10/09/2023 3:50 PM CDT [facility] Comment:As of 2021, eG FR is calculated by the CKD-EPI creatinine equation without race adjustment. eGFR can be influenced by muscle mass, exercise, and diet. The reported eGFR is an estimation only and is only applicable if the renal function is stable. Blood BLOOD SPECIMEN / Unknown 10/09/2023 3:48 PM CDT 10/09/2023 3:50 PM CDT [facility] RE[facility] CHEMISTRY [facility] [address] [place] [address], * US ARTERIAL SEG W TOE PRESSURES (09/27/2023 8:16 AM CDT) Anatomical Region Laterality Modality LEGS Ultrasound 09/27/2023 7:18 AM CDT Narrative 09/27/2023 3:45 PM CDT VASCULAR ULTRASOUND REPORT MARCO A JONES Accession#: ?? [id number] : ?1955 Study Date: ?? 09/27/2023 7:18:54 AM Age: ?68 years ?? Tech: ? AMS Gender: F ?Referring MD: PARISA CALLAHAN Site: [facility] Vascular [facility] Study performed: ?Lower extremity resting SHANE, (bilateral). Indication for study: Claudication Study Quality: ?Good TECHNIQUE: Lower/upper extremity arteries were examined per exam protocol by duplex ultrasound, color-flow and spectral Doppler. Peak systolic velocities (PSV), Doppler waveform quality, velocity ratios and vessel size in cm, were documented at protocol specific sites. Physiologic data including segmental pressures, ankle/brachial index (SHANE), digit PPG recordings, laser Doppler flowmetry, transcutaneous oximetry, and digit temperatures were documented at sites per exam protocol and test requirements. IMPRESSION: 1. Resting ankle-brachial index is moderately reduced on the right at 0.68 and is normal on the left at 0.96. 2. Toe-brachial index is abnormal on the right at 0.22 and toe-brachial index is normal on the left at 0.75. 3. The right first digit pressures suggest inadequate perfusion for healing. COMPARISON: No prior study available for comparison. FINDINGS: Abnormal toe brachial index on the right. Left toe/brachial index indicates normal range. Pressures +-----+ +--------+ +-----+ ? RIGHT (mmHg) ? LEFT (mmHg) ? +-----+ +--------+ +-----+ Index ?151 ? Brachial ?150 ? Index +-----+ +--------+ +-----+ 0.60 ? 91 ?INDUSTRIAL BOILERMAKER ?142 ? 0.94 +-----+ +--------+ +-----+ 0.68 ?103 ?DPA ?145 ? 0.96 +-----+ +--------+ +-----+ 0.22 ? 33 ? Digit 1 ?113 ? 0.75 +-----+ +--------+ +-----+ ROBB Johnson. Electronically signed on 09/27/2023 3:45:37 PM This study was performed and interpreted by a service accredited by the Intersocietal Accreditation Commission (IAC/Vascular), [email or web address]/vascular Report generated by [employer] ??Final ?? Procedure Note Radha Laguna MBBS - 09/27/2023 VASCULAR ULTRASOUND REPORT MARCO A JONES : 1955 Study Date: 09/27/2023 7:18:54 AM Age: 68 years Tech: AMS Gender: F Referring MD: PARISA CALLAHAN Site: [facility] Study performed: Lower extremity resting SHANE, (bilateral). Indication for study: Claudication Study Quality: Good TECHNIQUE: Lower/upper extremity arteries were examined per exam protocol by duplexultrasound, color-flow and spectral Doppler. Peak systolic velocities(PSV), Doppler waveform quality, velocity ratios and vessel size in cm,were documented at protocol specific sites. Physiologic data includingsegmental pressures, ankle/brachial index (SHANE), digit PPG recordings,laser Doppler flowmetry, transcutaneous oximetry, and digit temperatureswere documented at sites per exam protocol and test requirements. IMPRESSION: 1. Resting ankle-brachial index is moderately reduced on the right at0.68 and is normal on the left at 0.96. 2. Toe-brachial index is abnormal on the right at 0.22 and toe-brachialindex is normal on the left at 0.75. 3. The right first digit pressures suggest inadequate perfusion forhealing. COMPARISON: No prior study available for comparison. FINDINGS: Abnormal toe brachial index on the right. Left toe/brachial index indicates normal range. Pressures +-----+ +--------+ +-----+ RIGHT (mmHg) LEFT (mmHg) +-----+ +--------+ +-----+ Index 151 Brachial 150 Index +-----+ +--------+ +-----+ 0.60 91 INDUSTRIAL BOILERMAKER 142 0.94 +-----+ +--------+ +-----+ 0.68 103 DPA 145 0.96 +-----+ +--------+ +-----+ 0.22 33 Digit 1 113 0.75 +-----+ +--------+ +-----+ ROBB Johnson. Electronically signed on 09/27/2023 3:45:37 PM This study was performed and interpreted by a service accredited by theIntersocietal Accreditation Commission (IAC/Vascular),[email or web address] Report generated by [employer] Final Parisa REESE US * US ARTERIAL LOWER EXTREMITY RIGHT (09/27/2023 8:16 AM CDT) Anatomical Region Laterality Modality Ultrasound 09/27/2023 7:32 AM CDT Narrative 09/27/2023 3:44 PM CDT VASCULAR ULTRASOUND REPORT MARCO A JONES Accession#: ?? [id number] : ?1955 Study Date: ?? 09/27/2023 7:32:28 AM Age: ?68 years ?? Tech: ? AMS Gender: F ?Referring MD: PARISA CALLAHAN Site: [facility] Study performed: ?Lower extremity duplex US, (right). Indication for study: Claudication Study Quality: ?Good TECHNIQUE: Lower/upper extremity arteries were examined per exam protocol by duplex ultrasound, color-flow and spectral Doppler. Peak systolic velocities (PSV), Doppler waveform quality, velocity ratios and vessel size in cm, were documented at protocol specific sites. Physiologic data including segmental pressures, ankle/brachial index (SHANE), digit PPG recordings, laser Doppler flowmetry, transcutaneous oximetry, and digit temperatures were documented at sites per exam protocol and test requirements. IMPRESSION: 1. Monophasic waveforms in the external iliac and common femoral arteries suggesting severe (75 to 99%) stenosis. Monophasic waveforms throughout the right lower extremity suggesting significant inflow disease. COMPARISON: No prior study available for comparison. FINDINGS: Elevated velocities at the PUBLIC SPEAKING COACH are consistent with a severe (75-99%) stenosis. Monophasic waveforms noted distally through out the RT LE. +--------+ + RIGHT ?? Velocity cm/s +--------+ + EIA DST ? 34 ? +--------+ + PUBLIC SPEAKING COACH DST ? 629 ? +--------+ + PFA ? 102 ? +--------+ + SFA PRX ? 224 ? +--------+ + SFA MID ? 72 ? +--------+ + SFA DST ? 44 ? +--------+ + OBDULIA PRX ? 53 ? +--------+ + OBDULIA DST ? 35 ? +--------+ + TPT ? 30 ? +--------+ + INDUSTRIAL BOILERMAKER DST ? 27 ? +--------+ + ISIAH DST ? 16 ? +--------+ + FREDI PRX ? 23 ? +--------+ + FREDI DST ? 23 ? +--------+ + DPA ? 20 ? +--------+ + Criteria: Stenosis ?V. Ratio Mild ?<50% ?<2.0 Moderate ?? 50-74% ?> or = 2.0 Severe ? 75-99% ?> or = 4.0 Occluded ?100% ?? no detectable flow ROBB Johnson. Electronically signed on 09/27/2023 3:44:52 PM This study was performed and interpreted by a service accredited by the Intersocietal Accreditation Commission (IAC/Vascular), [email or web address]/vascular Report generated by [employer] ??Final ?? Procedure Note Radha Laguna MBBS - 09/27/2023 VASCULAR ULTRASOUND REPORT MARCO A JONES : 1955 Study Date: 09/27/2023 7:32:28 AM Age: 68 years Tech: AMS Gender: F Referring MD: PARISA CALLAHAN Site: [facility] Study performed: Lower extremity duplex US, (right). Indication for study: Claudication Study Quality: Good TECHNIQUE: Lower/upper extremity arteries were examined per exam protocol by duplexultrasound, color-flow and spectral Doppler. Peak systolic velocities(PSV), Doppler waveform quality, velocity ratios and vessel size in cm,were documented at protocol specific sites. Physiologic data includingsegmental pressures, ankle/brachial index (SHANE), digit PPG recordings,laser Doppler flowmetry, transcutaneous oximetry, and digit temperatureswere documented at sites per exam protocol and test requirements. IMPRESSION: 1. Monophasic waveforms in the external iliac and common femoral arteriessuggesting severe (75 to 99%) stenosis. Monophasic waveforms throughoutthe right lower extremity suggesting significant inflow disease. COMPARISON: No prior study available for comparison. FINDINGS: Elevated velocities at the PUBLIC SPEAKING COACH are consistent with a severe (75-99%)stenosis. Monophasic waveforms noted distally through out the RT LE. +--------+ + RIGHT Velocity cm/s +--------+ + EIA DST 34 +--------+ + PUBLIC SPEAKING COACH DST 629 +--------+ + PFA 102 +--------+ + SFA PRX 224 +--------+ + SFA MID 72 +--------+ + SFA DST 44 +--------+ + OBDULIA PRX 53 +--------+ + OBDULIA DST 35 +--------+ + TPT 30 +--------+ + INDUSTRIAL BOILERMAKER DST 27 +--------+ + ISIAH DST 16 +--------+ + FREDI PRX 23 +--------+ + FREDI DST 23 +--------+ + DPA 20 +--------+ + Criteria: Stenosis V. Ratio Mild <50% <2.0 Moderate 50-74% > or = 2.0 Severe 75-99% > or = 4.0 Occluded 100% no detectable flow ROBB Johnson. Electronically signed on 09/27/2023 3:44:52 PM This study was performed and interpreted by a service accredited by theIntersocietal Accreditation Commission (IAC/Vascular),[email or web address] Report generated by [employer]. Final Parisa REESE US * XR FOOT 3 VIEWS RIGHT (09/21/2023 1:59 PM CDT) Anatomical Region Laterality Modality FEET, FOOT R Computed Radiogr aphy 09/21/2023 3:15 PM CDT Narrative 09/21/2023 3:15 PM CDT For Patients: ??As a result of the Cures Act, medical imaging exams and procedure reports are released immediately into your electronic medical record. ??You may view this report before your referring provider. ??If you have questions, please contact your health care provider. Indication: Foot ulceration Technique: Right foot 3 views. Comparison: 05/20/2020 Findings: Partial resection of the great toe distal phalanx noted with well-healed margins. No acute cortical destruction or periostitis. No acute fracture. Osteopenia. Impression: No evidence of acute osteomyelitis. Dictated by Isidoro Odell MD @ 09/21/2023 3:15:24 PM (Electronically Signed) Procedure Note Isidoro Odell MD - 09/21/2023 For Patients: As a result of the Cures Act, medical imagingexams and procedure reports are released immediately into your electronicmedical record. You may view this report before your referring provider.If you have questions, please contact your health care provider. Indication: Foot ulceration Technique: Right foot 3 views. Comparison: 05/20/2020 Findings: Partial resection of the great toe distal phalanx noted with well-healedmargins. No acute cortical destruction or periostitis. No acute fracture.Osteopenia. Impression: No evidence of acute osteomyelitis. Dictated by Isidoro Odell MD @ 09/21/2023 3:15:24 PM (Electronically Signed) [facility] * XR SHOULDER 3 VIEWS RIGHT (09/21/2023 1:58 PM CDT) Anatomical Region Laterality Modality SHOULDERS, SHOULDER R Computed R adiography 09/21/2023 3:13 PM CDT Narrative 09/21/2023 3:13 PM CDT For Patients: ??As a result of the Cures Act, medical imaging exams and procedure reports are released immediately into your electronic medical record. ??You may view this report before your referring provider. ??If you have questions, please contact your health care provider. Indication: Trauma and pain Technique: Right shoulder 3 views. Comparison: None Findings: Osteopenia. Mild degenerative changes. No fracture. Impression: No sign of acute injury. Dictated by Isidoro Odell MD @ 09/21/2023 3:13:38 PM (Electronically Signed) Procedure Note Isidoro Odell MD - 09/21/2023 For Patients: As a result of the s Act, medical imagingexams and procedure reports are released immediately into your electronicmedical record. You may view this report before your referring provider.If you have questions, please contact your health care provider. Indication: Trauma and pain Technique: Right shoulder 3 views. Comparison: None Findings: Osteopenia. Mild degenerative changes. No fracture. Impression: No sign of acute injury. Dictated by Isidoro Odell MD @ 09/21/2023 3:13:38 PM (Electronically Signed) [facility] * XR ELBOW 3 VIEWS RIGHT (09/21/2023 1:58 PM CDT) Anatomical Region Laterality Modality ELBOW R Computed Radiogr aphy 09/21/2023 3:12 PM CDT Narrative 09/21/2023 3:12 PM CDT For Patients: ??As a result of the s Act, medical imaging exams and procedure reports are released immediately into your electronic medical record. ??You may view this report before your referring provider. ??If you have questions, please contact your health care provider. Indication: Injury and pain Technique: Right elbow 3 views Comparison: 02/06/2023 Findings: No acute fracture. Mild chronic epicondylitis. No joint effusion. Impression: No sign of acute injury. Dictated by Isidoro Odell MD @ 09/21/2023 3:12:27 PM (Electronically Signed) Procedure Note Isidoro Odell MD - 09/21/2023 For Patients: As a result of the Cures Act, medical imagingexams and procedure reports are released immediately into your electronicmedical record. You may view this report before your referring provider.If you have questions, please contact your health care provider. Indication: Injury and pain Technique: Right elbow 3 views Comparison: 02/06/2023 Findings: No acute fracture. Mild chronic epicondylitis. No joint effusion. Impression: No sign of acute injury. Dictated by Isidoro Odell MD @ 09/21/2023 3:12:27 PM (Electronically Signed) [facility] * URINE ALBUMIN TO CREATININE RATIO, RANDOM (09/21/2023 1:46 PM CDT) ALB RAND URINE 15.9 mg/L 09/21/2023 11:32 PM CDT [facility] CREATININE,URIN E 0.76 g/L 09/21/2023 11:32 PM CDT [facility] ALBUMIN TO CREATININE RATIO,RAND UR 20.9 <30.0 mg/g creat 09/21/2023 11:32 PM CDT [facility] Urine URINE SPECIMEN / Unknown Non-Blood / Unknown 09/21/2023 1:46 PM CDT 09/21/2023 1:46 PM CDT Narrative [facility] - 09/21/2023 11:32 PM CDT If Albumin to Creatinine Ratio is elevated, consider the following: ? Elevations seen with incipient nephropathy associated ?? with diabetes mellitus or hypertension. Stress, exercise,hematuria, ?? and urinary tract infection may also produce elevated results. If clinically indicated, confirm with ?24 Hour Albumin to Creatinine Ratio. ?? Parisa REESE URINE [facility] [address] [place] [address], * (ABNORMAL) CBC WITH AUTO DIFFERENTIAL (09/21/2023 1:35 PM CDT) WHITE BLOOD COUNT 8.1 4.5 - 11.0 thou/cu mm 09/21/2023 2:04 PM CDT [facility] RED BLOOD COUNT 3.80(L) 4.00 - 5.20 mil/cu mm 09/21/2023 2:04 PM CDT [facility] HEMOGLOBIN 11.8(L) 12.0 - 16.0 g/dL 09/21/2023 2:04 PM CDT [facility] HEMATOCRIT 35.4 33.0 - 51.0 % 09/21/2023 2:04 PM CDT [facility] MCV 93 80 - 100 fL 09/21/2023 2:04 PM CDT [facility] MCH 31.1 26.0 - 34.0 pg 09/21/2023 2:04 PM CDT [facility] MCHC 33.3 32.0 - 36.0 g/dL 09/21/2023 2:04 PM CDT [facility] RDW 13.1 11.5 - 15.5 % 09/21/2023 2:04 PM CDT [facility] PLATELET COUNT 325 140 - 440 thou/cu mm 09/21/2023 2:04 PM CDT [facility] MPV 9.1 6.5 - 11.0 fL 09/21/2023 2:04 PM CDT [facility] Blood BLOOD SPECIMEN / Unknown Venipuncture / Unknown 09/21/2023 1:35 PM CDT 09/21/2023 1:36 PM CDT Parisa REESE HEMATOLOGY [facility] [address] [place] [address], * RED CELL MORPHOLOGY (09/21/2023 1:35 PM CDT) RBC COMMENT RBC morphology appears normal RBC morphology appears normal, RBC morphology within normal limits for newborns. 09/21/2023 2:04 PM CDT [facility] Blood BLOOD SPECIMEN / Unknown Venipuncture / Unknown 09/21/2023 1:35 PM CDT 09/21/2023 1:36 PM CDT Parisa REESE HEMATOLOGY Performing Organization Address City/[facility]/ZIP Co de Phone Number [facility] [address] [place] [address], * PLATELET ESTIMATE (09/21/2023 1:35 PM CDT) PLATELET ESTIMATE Adequate Adequate, No estimate 09/21/2023 2:04 PM CDT [facility] Blood BLOOD SPECIMEN / Unknown Venipuncture / Unknown 09/21/2023 1:35 PM CDT 09/21/2023 1:36 PM CDT Parisa REESE HEMATOLOGY Performing Organization Address City/[facility]/ZIP Co de Phone Number [facility] [address] [place] [address], * (ABNORMAL) MANUAL DIFFERENTIAL (09/21/2023 1:35 PM CDT) % NEUTROPHILS 58.0 % 09/21/2023 2:04 PM CDT [facility] % LYMPHOCYTES 24.0 % 09/21/2023 2:04 PM CDT [facility] % MONOCYTES 10.0 % 09/21/2023 2:04 PM CDT [facility] % EOSINOPHILS 8.0 % 09/21/2023 2:04 PM CDT [facility] % BASOPHILS 0.0 % 09/21/2023 2:04 PM CDT [facility] NEUTROPHILS ABSOLUTE 4.7 1.7 - 7.0 thou/cu mm 09/21/2023 2:04 PM CDT [facility] LYMPHOCYTES ABSOLUTE 1.9 0.9 - 2.9 thou/cu mm 09/21/2023 2:04 PM CDT [facility] MONOCYTES ABSOLUTE 0.8 <0.9 thou/cu mm 09/21/2023 2:04 PM CDT [facility] EOSINOPHILS ABSOLUTE 0.6(H) <0.5 thou/cu mm 09/21/2023 2:04 PM CDT [facility] BASOPHILS ABSOLUTE 0.0 <0.3 thou/cu mm 09/21/2023 2:04 PM CDT [facility] Blood BLOOD SPECIMEN / Unknown Venipuncture / Unknown 09/21/2023 1:35 PM CDT 09/21/2023 1:36 PM CDT Parisa REESE HEMATOLOGY [facility] [address] [place] [address], * (ABNORMAL) C-REACTIVE PROTEIN (09/21/2023 1:35 PM CDT) C-REACTIVE PROTEIN 1.0(H) <0.5 mg/dL 09/21/2023 10:16 PM CDT [facility] Blood BLOOD SPECIMEN / Unknown Venipuncture / Unknown 09/21/2023 1:35 PM CDT 09/21/2023 1:36 PM CDT Parisa REESE CHEMISTRY [facility] [address] [address], * (ABNORMAL) HEMOGLOBIN A1C MONITORING (POCT) (09/21/2023 1:35 PM CDT) HEMOGLOBIN A1C MONITORING (POCT) 9.8(H) <=6.4 % 09/21/2023 1:55 PM CDT [facility] Blood BLOOD SPECIMEN / Unknown Venipuncture / Unknown 09/21/2023 1:35 PM CDT 09/21/2023 1:36 PM CDT Narrative [facility] - 09/21/2023 1:55 PM CDT ? (<=6.9%) ? Indicates good control ? (7.0% to 7.9%) ? Indicates fair control ? (>=8.0%) ? Indicates poor control ?? NOTE: ??These thresholds are guidelines and ?individual targets may vary. Falsely low levels may be seen with: Recent Transfusion, Recent Significant Blood Loss, Hemolytic Diseases, or Falsely elevated levels may be seen with: Untreated Anemias, Splenectomy ? Parisa REESE CHEMISTRY [facility] [address] [place] [address], * CT CHEST WO (09/02/2023 1:50 PM CONSTRUCTION ECONOMIST) Anatomical Region Laterality Modality CHEST, THORAX, HEART Computed To mography 09/02/2023 1:50 PM CONSTRUCTION ECONOMIST Impressions 09/04/2023 9:08 AM CONSTRUCTION ECONOMIST IMPRESSION: 1. ??Interval decreased sizes of bilateral pulmonary opacities. Residual scarring at the right minor fissure. A smaller solid irregular nodular opacity at the lingula compared to 04/25/2023. This could represent resolving effusion. An underlying neoplasm is difficult to exclude. Recommend short interval follow-up CT chest in 3-6 months. 2. ??Emphysema. 3. ??Coronary artery calcifications. 4. ??Mildly distended esophagus. Mild esophageal wall thickening distally. Correlate with any evidence of esophagitis. ? Narrative 09/04/2023 9:08 AM CONSTRUCTION ECONOMIST EXAM: CT CHEST wo CONTRAST LOCATION: [facility] DATE: 09/02/2023 INDICATION: Other nonspecific abnormal finding of lung field. COMPARISON: CT chest 04/25/2023. TECHNIQUE: CT chest without IV contrast. Multiplanar reformats were obtained. Dose reduction techniques were used. CONTRAST: None. FINDINGS: LUNGS AND PLEURA: No effusions. Emphysema. Small scarring or atelectasis anterior medial right midlung along the minor fissure. There is a solid and irregular lingular nodule that is 12 x 11 mm series 3 image 190. On the prior study this was approximately 32 x 24 mm. Solid lateral left lower lobe 3 mm nodule series 3 image 164, previously obscured by consolidation. MEDIASTINUM/AXILLAE: No adenopathy. No acute abnormality. Mildly distended esophagus. Mild distal esophageal wall prominence. CORONARY ARTERY CALCIFICATION: Severe. UPPER ABDOMEN: Cholecystectomy. Vascular calcifications. MUSCULOSKELETAL: Unremarkable. Procedure Note Boaz Isaac MD - 09/04/2023 EXAM: CT CHEST wo CONTRAST LOCATION: [facility] DATE: 09/02/2023 INDICATION: Other nonspecific abnormal finding of lung field. COMPARISON: CT chest 04/25/2023. TECHNIQUE: CT chest without IV contrast. Multiplanar reformats were obtained. Dose reduction techniques were used. CONTRAST: None. FINDINGS: LUNGS AND PLEURA: No effusions. Emphysema. Small scarring or atelectasis anterior medial right midlung along the minor fissure. There is a solid and irregular lingular nodule that is 12 x 11 mm series 3 image 190. On the prior study this was approximately 32 x 24 mm. Solid lateral left lower lobe 3 mm nodule series 3 image 164, previously obscured by consolidation. MEDIASTINUM/AXILLAE: No adenopathy. No acute abnormality. Mildly distended esophagus. Mild distal esophageal wall prominence. CORONARY ARTERY CALCIFICATION: Severe. UPPER ABDOMEN: Cholecystectomy. Vascular calcifications. MUSCULOSKELETAL: Unremarkable. IMPRESSION: IMPRESSION: 1. Interval decreased sizes of bilateral pulmonary opacities. Residual scarring at the right minor fissure. A smaller solid irregular nodular opacity at the lingula compared to 04/25/2023. This could represent resolving effusion. An underlying neoplasm is difficult to exclude. Recommend short interval follow-up CT chest in 3-6 months. 2. Emphysema. 3. Coronary artery calcifications. 4. Mildly distended esophagus. Mild esophageal wall thickening distally. Correlate with any evidence of esophagitis. Darian ZAMUDIO CT * XR SPINE THORACIC 2 VIEWS (07/27/2023 10:59 AM CONSTRUCTION ECONOMIST) Anatomical Region Laterality Modality Spine, THORACIC SPINE Computed R adiography 07/27/2023 10:5 9 AM CONSTRUCTION ECONOMIST Impressions 07/27/2023 6:05 PM CONSTRUCTION ECONOMIST History of T1 compression reviewed on prior CT 04/23/2023. Compression is low- grade and involves the superior endplate on review. Cervical spine: This low-grade compression is obscured on the cervical spine imaging due to overlap of adjacent soft tissue and osseous structures. There are degenerative changes in the cervical spinal most prominent at C5-C6 with interspace narrowing and osteophytes. 1 mm-2 mm degenerative anterior subluxation C4-C5 is stable from prior plain film appearance. Appropriate appearance to the airway and cervical prevertebral soft tissues. Lung apices are clear. Satisfactory mineralization. Multilevel cervical facet joint arthropathy. Asymmetric widening right lateral atlantodens interval as before. Cervical spine appearance stable from 06/01/2023. Thoracic spine: Twelve thoracic segments. Redemonstration of very low-grade loss of height superior endplate of T1 under 15% with no new or progressive compressions. Otherwise height/alignment is satisfactory and stable. Degenerative interspace narrowing centered at upper and mid thoracic levels as before. Mild demineralization. Slight elevation left hemidiaphragm. Heart size is normal. Vascular calcification. No consolidation or pleural effusion. Thoracic spine appearance otherwise stable from 06/01/2023 with no acute process overall noted. Narrative 07/27/2023 6:05 PM CONSTRUCTION ECONOMIST For Patients: As a result of the Cures Act, medical imaging exams and procedure reports are released immediately into your electronic medical record. You may view this report before your referring provider. If you have questions, please contact your health care provider. EXAM: XR SPINE CERVICAL 3 VIEWS, XR SPINE THORACIC 2 VIEWS LOCATION: [facility] DATE: 07/27/2023 INDICATION: Unspecified Fracture Of Unspecified Thoracic Vertebra, Subsequent Encounter For Fracture With Routine Healing. COMPARISON: Cervical and thoracic spine plain film study 06/01/2023. CT thoracic spine 04/23/2023. Procedure Note Norman Zuniga MD - 07/27/2023 For Patients: As a result of the Cures Act, medical imagingexams and procedure reports are released immediately into your electronicmedical record. You may view this report before your referring provider.If you have questions, please contact your health care provider. EXAM: XR SPINE CERVICAL 3 VIEWS, XR SPINE THORACIC 2 VIEWS LOCATION: [facility] DATE: 07/27/2023 INDICATION: Unspecified Fracture Of Unspecified Thoracic Vertebra,Subsequent Encounter For Fracture With Routine Healing. COMPARISON: Cervical and thoracic spine plain film study 06/01/2023. CTthoracic spine 04/23/2023. IMPRESSION: History of T1 compression reviewed on prior CT 04/23/2023. Compression islow- grade and involves the superior endplate on review. Cervical spine: This low-grade compression is obscured on the cervicalspine imaging due to overlap of adjacent soft tissue and osseousstructures. There are degenerative changes in the cervical spinal mostprominent at C5-C6 with interspace narrowing and osteophytes. 1 mm-2 mmdegenerative anterior subluxation C4-C5 is stable from prior plain filmappearance. Appropriate appearance to the airway and cervical prevertebralsoft tissues. Lung apices are clear. Satisfactory mineralization.Multilevel cervical facet joint arthropathy. Asymmetric widening rightlateral atlantodens interval as before. Cervical spine appearance stablefrom 06/01/2023. Thoracic spine: Twelve thoracic segments. Redemonstration of verylow-grade loss of height superior endplate of T1 under 15% with no new orprogressive compressions. Otherwise height/alignment is satisfactory andstable. Degenerative interspace narrowing centered at upper and midthoracic levels as before. Mild demineralization. Slight elevation lefthemidiaphragm. Heart size is normal. Vascular calcification. Noconsolidation or pleural effusion. Thoracic spine appearance otherwisestable from 06/01/2023 with no acute process overall noted. Provider Referring GENERAL IMAGING * XR SPINE CERVICAL 3 VIEWS (07/27/2023 10:58 AM CONSTRUCTION ECONOMIST) Anatomical Region Laterality Modality CERVICAL SPINE Computed Radiogr aphy 07/27/2023 10:5 8 AM CONSTRUCTION ECONOMIST Impressions 07/27/2023 6:05 PM CONSTRUCTION ECONOMIST History of T1 compression reviewed on prior CT 04/23/2023. Compression is low- grade and involves the superior endplate on review. Cervical spine: This low-grade compression is obscured on the cervical spine imaging due to overlap of adjacent soft tissue and osseous structures. There are degenerative changes in the cervical spinal most prominent at C5-C6 with interspace narrowing and osteophytes. 1 mm-2 mm degenerative anterior subluxation C4-C5 is stable from prior plain film appearance. Appropriate appearance to the airway and cervical prevertebral soft tissues. Lung apices are clear. Satisfactory mineralization. Multilevel cervical facet joint arthropathy. Asymmetric widening right lateral atlantodens interval as before. Cervical spine appearance stable from 06/01/2023. Thoracic spine: Twelve thoracic segments. Redemonstration of very low-grade loss of height superior endplate of T1 under 15% with no new or progressive compressions. Otherwise height/alignment is satisfactory and stable. Degenerative interspace narrowing centered at upper and mid thoracic levels as before. Mild demineralization. Slight elevation left hemidiaphragm. Heart size is normal. Vascular calcification. No consolidation or pleural effusion. Thoracic spine appearance otherwise stable from 06/01/2023 with no acute process overall noted. Narrative 07/27/2023 6:05 PM CONSTRUCTION ECONOMIST For Patients: As a result of the Cures Act, medical imaging exams and procedure reports are released immediately into your electronic medical record. You may view this report before your referring provider. If you have questions, please contact your health care provider. EXAM: XR SPINE CERVICAL 3 VIEWS, XR SPINE THORACIC 2 VIEWS LOCATION: [facility] DATE: 07/27/2023 INDICATION: Unspecified Fracture Of Unspecified Thoracic Vertebra, Subsequent Encounter For Fracture With Routine Healing. COMPARISON: Cervical and thoracic spine plain film study 06/01/2023. CT thoracic spine 04/23/2023. Procedure Note Norman Zuniga MD - 07/27/2023 For Patients: As a result of the s Act, medical imagingexams and procedure reports are released immediately into your electronicmedical record. You may view this report before your referring provider.If you have questions, please contact your health care provider. EXAM: XR SPINE CERVICAL 3 VIEWS, XR SPINE THORACIC 2 VIEWS LOCATION: [facility] DATE: 07/27/2023 INDICATION: Unspecified Fracture Of Unspecified Thoracic Vertebra,Subsequent Encounter For Fracture With Routine Healing. COMPARISON: Cervical and thoracic spine plain film study 06/01/2023. CTthoracic spine 04/23/2023. IMPRESSION: History of T1 compression reviewed on prior CT 04/23/2023. Compression islow- grade and involves the superior endplate on review. Cervical spine: This low-grade compression is obscured on the cervicalspine imaging due to overlap of adjacent soft tissue and osseousstructures. There are degenerative changes in the cervical spinal mostprominent at C5-C6 with interspace narrowing and osteophytes. 1 mm-2 mmdegenerative anterior subluxation C4-C5 is stable from prior plain filmappearance. Appropriate appearance to the airway and cervical prevertebralsoft tissues. Lung apices are clear. Satisfactory mineralization.Multilevel cervical facet joint arthropathy. Asymmetric widening rightlateral atlantodens interval as before. Cervical spine appearance stablefrom 06/01/2023. Thoracic spine: Twelve thoracic segments. Redemonstration of verylow-grade loss of height superior endplate of T1 under 15% with no new orprogressive compressions. Otherwise height/alignment is satisfactory andstable. Degenerative interspace narrowing centered at upper and midthoracic levels as before. Mild demineralization. Slight elevation lefthemidiaphragm. Heart size is normal. Vascular calcification. Noconsolidation or pleural effusion. Thoracic spine appearance otherwisestable from 06/01/2023 with no acute process overall noted. Provider Referring GENERAL IMAGING * XR MAMMO CASSIE BILAT SCREEN (11/09/2021 3:31 PM CDT) Anatomical Region Laterality Modality BREASTS, Breast Left, Breast Right Bilateral Mammography Impressions 11/10/2021 3:37 PM CDT ??There is no radiographic evidence for malignancy. ??Recommend annual mammograms. MAMMOGRAM ASSESSMENT: ??ACR 1 Negative PATIENTS: You will also receive a letter with your examination results in an easy to read format. ??If you have questions about your results, please contact your referring provider. Narrative 11/10/2021 3:37 PM CDT For Patients: As a result of the Century Cures Act, medical imaging exams and procedure reports are released immediately into your electronic medical record. You may view this report before your referring provider. If you have questions, please contact your health care provider. XR MAMMO CASSIE BILAT SCREEN [[id number]] CLINICAL HISTORY: ??This is an asymptomatic 66 y.o. patient. INDICATION FOR EXAM: Mammogram Screening. TECHNIQUE: CC & MLO views were obtained. ??This study was evaluated with the assistance of Computer-Aided Detection. Breast Tomosynthesis was used in interpretation. COMPARISON FILM: Yes 01/23/17 [facility] 09/10/10 [facility] FINDINGS: ??The breasts are extremely dense, which lowers the sensitivity of mammography. There are no dominant masses, suspicious micro calcifications or areas of architectural distortion. David Sparks MD MAMMO * (ABNORMAL) XR DXA BONE DENSITY 2 SITES AXIAL (11/09/2021 3:30 PM CDT) Anatomical Region Laterality Modality Spine, HIPS, HIPL, HIPR Other Impressions 11/15/2021 8:42 AM CDT Osteoporosis. RECOMMENDATIONS: The National Osteoporosis Foundation recommends pharmacologic treatment for patients with T-scores of -2.5 or less, patients with prior history of fragility fractures, or patients with 10-year probability of greater than 3% at hips or greater than 20% of suffering major osteoporotic fractures. Recommend continued optimization of calcium and vitamin D intake through dietary means and/or supplementation and regular exercise. Continue current Alendronate (Fosamax) medication treatment. Destiny Medellin PA-C [facility] 11/15/2021 Narrative 11/15/2021 8:42 AM CDT For Patients: Results are automatically released to your [facility] ([employer]) account once available, in compliance with federal regulations. This means that you may see your results before your provider has had a chance to review them. Please allow 2-3 business days for your provider to comment on the results. XR DXA Bone Mineral Density (BMD) EXAM LOCATION: [address] [address] PATIENT NAME: Marco A Jones DATE OF : 1955 EXAM DATE: 11/09/2021 REQUESTING PROVIDER: David Sparks MD GENDER AT : female HEIGHT: 5' 1.85 (11/02/2021) WEIGHT: ??103 lb 12.8 oz (11/02/2021) MENOPAUSAL STATUS: Postmenopausal RACE/ETHNICITY: White RISK FACTORS: Diabetes Type 1, Family History of Hip Fracture (parental), History of Fragility Fracture (at a major site), Smoking (current), Smoking (prior), Weight < 127 lbs. and White Race CURRENT MEDICATION FOR BONE LOSS: Alendronate (Fosamax) INDICATION: Follow-up of existing osteoporosis COMPARISON DATE(S): 2016 DXA scans are compared to prior studies for a patient only when the two (or more) studies were performed on the same scanner. It is not possible to compare data generated on one scanner to data from another because there are not standards in DXA equipment. This applies even if the two scanners are made by the same industrial order clerk. PROCEDURE: Dual-energy x-ray absorptiometry performed with routine technique. Reporting is completed in the form of a T-score. The T-score represents the standard deviation from peak bone mass based on young healthy adult. A Z-score is used for diagnosis in premenopausal women, and for men under the age of 50. FINDINGS: RESULT LUMBAR SPINE L1 & L4 BMD: 0.775 g/cm2 T-Score: - 3.3 Z-Score: - 1.1 Change from prior in 2017: ??Increase 1.0%. RESULTS FEMUR Left femoral neck BMD: 0.620 g/cm2 T-Score: - 3.0 Z-Score: - 1.1 Change from prior in 2017: ??Increase 0.6%. Right femoral neck BMD: 0.572 g/cm2 T-Score: - 3.4 Z-Score: - 1.5 Change from prior in 2017: ??Decrease 1.5%. Left hip BMD: 0.597 g/cm2 T-Score: - 3.3 Z-Score: - 1.6 Change from prior in 2017: ??Decrease 4.9%. Right hip BMD: 0.587 g/cm2 T-Score: - 3.3 Z-Score: - 1.7 Change from prior in 2017: ??Increase 1.6%. WHO criteria: Normal: T-score at or above -1 SD Osteopenia: T-score between -1.1 and -2.4 SD Osteoporosis: T-score at or below -2.5 SD David Sparks MD DEXA * LIPID PANEL W REFLEX MEASURED LDL (11/02/2021 1:10 PM CDT) CHOLESTEROL,TOTAL 121 100 - 199 mg/dL 11/02/2021 11:38 PM CDT [facility] TRIGLYCERIDES 91 <150 mg/dL 11/02/2021 11:38 PM CDT [facility] HDL CHOLESTEROL 45 >40 mg/dL 11:38 PM CDT [facility] NON-HDL CHOLESTEROL 76 <145 mg/dl 11/02/2021 11:38 PM CDT [facility] CHOL/HDL RATIO 2.69 <4.50 11/02/2021 11:38 PM CDT [facility] LDL CHOLESTEROL 58 <=130 mg/dL 11/02/2021 11:38 PM CDT [facility] VLDL CHOLESTEROL 18 <=30 mg/dL 11/02/2021 11:38 PM CDT [facility] PROVIDER ORDERED STATUS RANDOM 11/02/2021 11:38 PM CDT [facility] Blood BLOOD SPECIMEN / Unknown Venipuncture / Unknown 11/02/2021 1:10 PM CDT 11/02/2021 1:10 PM CDT David Sparks MD CHEMISTRY [facility] [address] [place] [address], * OCCULT BLOOD IFOBT STOOL (11/29/2018 3:36 PM CDT) STOOL BLOOD ,IFOBT Negative Negative 12/07/2018 9:[address] [facility] Stool STOOL SPECIMEN / Unknown Non-Blood / Unknown 11/29/2018 3:36 PM CDT 12/06/2018 3:36 PM CDT David Sparks MD LABORATORY [facility] [address] [place] [address], * ANTI HCV (01/04/2010 1:58 PM CDT) ANTI HCV Non-reacti ve [facility] Blood specimen (specimen) BLOOD SPECIMEN / Unknown 01/04/2010 1:58 PM CDT 01/04/2010 1:46 PM CDT David Sparks MD SEND OUTS [facility] INTERNAL ZIP [id number] [place] [phone] from Last 3 Months or Most Recently Relevant to Health Maintenance Advance Directives * Full Code (Latest Code Status on File) Date Activated Date Inactivated Comments 04/23/2023 7:28 PM 05/01/2023 11:51 AM Question Answer Comments Code Status Discussion: Reviewed Preferences * Full Code Date Activated Date Inactivated Comments 02/02/2023 4:21 PM 02/04/2023 4:30 PM Question Answer Comments Code Status Discussion: Reviewed Preferences * Full Code Date Activated Date Inactivated Comments 01/04/2023 7:46 AM 01/05/2023 3:19 PM Question Answer Comments Code Status Discussion: Unable to Assess Preferences, Provider to review later * Full Code Date Activated Date Inactivated Comments 02/03/2019 3:51 PM 02/06/2019 3:14 PM Care Teams Medical Engineer Relationship Specialty Start Date End Date Parisa Callahan PA [address] [place] [address] PCP - General Physician [employer] 05/16/23 [place] [id number] [address] [address] 02/04/23 Raegan Dumont COTA [address] [place] [address] Occupational Therapy 05/05/23
--- OUTSIDE RECORDS SUMMARY | 2023-10-10 16:43 | XMS_ITS | Referral Summary ---
Author Name Unknown Organization [facility] Address [address] [place] [address] Care Team Providers Care Design Engineering Specialist Name Role Phone Elsewhere, Pcp Primary Care Provider Unavailabl e Source Comments Patient records contain information from all sites at [facility]. For routine questions regarding patient records, call [phone] during business hours, M-F 8:00 AM - 5:00 PM Central Time. Record requests for emergency care only can be directed to [phone] at any time.[facility] Encounters Date Type Department Care Team Description 09/18/2023 Clinical Communication Department of Rehabilitation Services in [address] [phone] Felipe Saravia, P.T. 09/18/2023 1:45 PM CDT Clinical Support Department of Rehabilitation Services in [address] [phone] Neno Call M.D. Beissel, Curtis J, P.T. Debility 09/13/2023 9:13 PM CDT - 09/13/2023 9:47 PM CDT Emergency [facility] [address] [place] [phone] Serafin Davidson P.A.-C. Pain Foot Right (Primary Dx) Discharge Disposition: Home or Self Care 09/08/2023 1:15 PM CARD BRUSHER Clinical Support Department of Rehabilitation Services in [address] [phone] Neno Call M.D. Beissel, Curtis J P.T. Debility 08/28/2023 1:45 PM CARD BRUSHER Clinical Support Department of Rehabilitation Services in [address] [phone] Neno Call M.D. Beissel, Curtis J P.T. Debility 08/21/2023 1:45 PM CARD BRUSHER Clinical Support Department of Rehabilitation Services in [address] [phone] Neno Call M.D. Beissel, Curtis J, P.T. Debility 08/16/2023 2:15 PM CARD BRUSHER Comprehensive Visit Department of Rehabilitation Services in [address] [phone] Parisa Byrd P.A.-C. Fogarty, Jennifer L P.TTam Debility (Primary Dx) 08/07/2023 Clinical Communication Department of Family Medicine, [facility], in [address] [phone] Elsewhere, Pcp from Last 3 Months Allergies Active Allergy Reactions Criticality Noted Date [...] Diagnosed Date Atherosclerotic Heart Diseas e Of [place] Coronary Artery Without Angina Pectoris 09/15/2022 Depression Major Recurrent 08/03/2021 Fracture Radius Colles Closed Initial Right 05/03 Overview: Added automatically from request for surgery [id number] Osteoporosis 01/23/2018 Hypertension NOS Diabetes Mellitus Type 2 Immunizations Name Administration Dates Next Due Influenza [...] quad (FLUZONE/FLUARIX) (6 months and older)(PF) 03/23/2020,04/27/2018 Social History Tobacco Use Types Packs/Day Years [...] Date Recorded Dental: Regular Dentist Unknown 09/01/19 21 Sex and Gender Information Value Date Recorded [...] 09/15/2022 3:04 PM CDT Plan of Treatment Not on file Medical Devices Implanted Type Area Weed Control Inspector Device Identifier Shelf Expiration Date Model / Serial / Lot Plt Wrst Dvr Rt 3h 24.4x51.3 - [id number] Implanted:Qty : 1 on 05/26/2021 by Jorden Tineo M.D. at [facility] Hardware e.g. pins/screws/ rods [employer] [id number] / / 07.05.20. [address] S[address] Sngl 1.6x127 - [id number] Implanted:Qty : 1 on 05/26/2021 by Jorden Tineo M.D. at [facility] Hardware e.g. pins/screws/ rods [employer] [id number] / 07.05.20. 319 Scrw Dvr Fthrd 3.5x12 - [id number] Implanted:Qty : 2 on 05/26/2021 by Jorden Tineo M.D. at [facility] Hardware e.g. pins/screws/ rods [employer] [id number] / / 07.05.20. 319 Peg Fix Dvr Pthrd Lng 2.5x22 - [id number] Implanted:Qty : 3 on 05/26/2021 by Jorden Tineo M.D. at [facility] Hardware e.g. pins/screws/ rods Right: Wrist [employer] [id number] / / 07.05.20. 319 Peg Fix Dvr Pthrd Lng 2.5x16 - [id number] Implanted:Qty : 1 on 05/26/2021 by Jorden Tineo M.D. at [facility] Hardware e.g. pins/screws/ rods Right: Wrist [employer] [id number] / / 07.05.20. 319 Peg Fix Dvr Smth Lng 2.0x18 - [id number] Implanted:Qty : 3 on 05/26/2021 by Jorden Tineo M.D. at [facility] Hardware e.g. pins/screws/ rods Right: Wrist [employer] [id number] / 07.05.20. 319 Scrw Dvr Fthrd 3.5x13 - [id number] Implanted:Qty : 1 on 05/26/2021 by Jorden Tineo M.D. at [facility] Hardware e.g. pins/screws/ rods [employer] [id number] / 07.05.20. 319 Care Teams Design Engineering Specialist Relationship Specialty Start Date End Date Elsewhere, Pcp PCP - General Family Medicine 03/11/21
--- OUTSIDE RECORDS SUMMARY | 2023-10-10 16:43 | XMS_ITS | Encounter Summary ---
Author Name Unknown Organization [facility] Address [address] [place] [address] Care Team Providers Care Casing Machine Operator Name Role Phone Elsewhere, Pcp Primary Care Provider Unavailabl e Encounter Details Date Type Department Care Team (Latest Contact Info) Description 09/18/2023 Clinical Communication Department of Rehabilitation Services in [address] [phone] Felipe Saravia, P.TTam [address] [place] [phone] Social History Tobacco Use Types Packs/Day Years Used Date Smoking Tobacco: Every Day Cigarettes 0.3 Passive Smoke Exposure: Current Smokeless Tobacco: Never Alcohol Use Standard Drinks/Week [...] on file Sexual Orientation Not on file documented as of this encounter Plan of Treatment Not on file documented as of this encounter Visit Diagnoses Not on filedocumented in this encounter Care Teams Casing Machine Operator Relationship Specialty Start Date End Date Elsewhere, Pcp PCP - General Family Medicine 03/11/21 documented as of this encounter
--- OUTSIDE RECORDS SUMMARY | 2023-10-10 16:43 | XMS_ITS | Encounter Summary ---
Author Name Unknown Organization [facility] Address [address] [place] [address] Care Team Providers Care Forge Helper Name Role Phone Elsewhere, Pcp Primary Care Provider Unavailabl e Reason for Visit * Physical Therapy (Routine) - Authorized Specialty Diagnoses / Procedures Referred By Kashmir t Referred To Contact Diagnoses Debility Procedures PT Ongoing treatment Neno Call M.D. [address] [place] [phone] [facility] Region Referral ID Status Reason Start Date Expiration Date V isits Requested Visits Authorized [id number] Authorized 08/16/2023 07/02/2024 40 40 Encounter Details Date Type Department Care Team (Late st Contact Info) Description 08/28/2023 1:45 PM STATEMENT CLERKS MANAGER Clinical Support Department of Rehabilitation Services in [address] [phone] Neno Call M.D. [address] [place] [address] Felipe Saravia P.T. [address] [place] [phone] Debility Social History Tobacco Use Types Packs/Day Years [...] documented as of this encounter Progress Notes * Felipe Saarvia P.T. - 08/28/2023 1:45 PM CST Physical Therapy Outpatient Treatment Note SUBJECTIVE Patient's Name: Bella Jones Referring Provider: Neno Call M.D. Visit Diagnosis: 1. Debility Payor: AAR / Plan: AARP MEDICARE ADVANTAGE [place] PPO / Product Type: PPO / No data recorded Epic Visit Count: 6 Patient comments: Bella comes into therapy today stating that she was sore after treatment last time. This was muscle soreness. This lasted about 2 days. OBJECTIVE Pain: Ortho Exam TREATMENT Treatment today consisted of: We started out with patient on the treatment table. She worked on core strengthening. This includedleg raises as well as pelvic stabilization exercises with single and double leg raises. She worked on heel slides with manual resistance. We had her work on knee extension exercises in supine and short sitting. After this, we had patient work on leg press exercises on machine. This was at 30 lb. She worked on back extension exercises on machine. After this, we had her work on step-ups in the parallel bars. She worked on trunk rotation exercises with the wall unit at 30 lb. Assessment Clinical Impression: Patient tolerated fairly well overall. She does have continued weakness as well as decreased endurance. Functional Goals and Timeframes: PT Goal #1: Patient will demonstrate lower extremity strength at a 5/5. PT Goal #1 Date: 09/29/23 PT Goal #2: Patient will demonstrate adr-lt-walbz x5 in 11 seconds. PT Goal #2 Date: 09/29/23 PT Goal #3: Patient will demonstrate tug test in 16 seconds with the use of 4 wheeled walker. PT Goal #3 Date: 09/29/23 PT Goal #4: Patient will demonstrate 30 minutes of activity tolerance without rest. PT Goal #4 Date: 09/29/23 Plan We will continue to work on both strengthening endurance. Plan for next session: Time Spent with Patient Therapeutic Interventions Therapeutic Exercise (min): 45 min Time Tracking Total Timed Units (min): 45 min Total Treatment Time (min): 45 min EMENT CLERKS MANAGER documented in this encounter Plan of Treatment Not on file documented as of this encounter Visit Diagnoses Diagnosis Debility documented in this encounter Care Teams Forge Helper Relationship Specialty Start Date End Date Elsewhere, Pcp PCP - General Family Medicine 03/11/21 documented as of this encounter
--- OUTSIDE RECORDS SUMMARY | 2023-10-10 16:43 | XMS_ITS | Encounter Summary ---
Author Name Unknown Organization [facility] Address [address] [place] [address] Care Team Providers Care Mining Speculator Name Role Phone Elsewhere, Pcp Primary Care Provider Unavailabl e Reason for Visit * Physical Therapy (Routine) - Authorized Specialty Diagnoses / Procedures Referred By Kashmir t Referred To Contact Diagnoses Debility Procedures PT Ongoing treatment Neno Call M.D. [address] [place] [phone] [facility] Region Referral ID Status Reason Start Date Expiration Date V isits Requested Visits Authorized [id number] Authorized 08/16/2023 07/02/2024 40 40 Encounter Details Date Type Department Care Team (Late st Contact Info) Description 08/21/2023 1:45 PM THIRD RIGGER Clinical Support Department of Rehabilitation Services in [address] [phone] Neno Call M.D. [address] [place] [phone] Felipe Saravia P.T. [address] [place] [phone] Debility Social History Tobacco Use Types Packs/Day [...] of this encounter Progress Notes * Felipe Saravia P.T. - 08/21/2023 1:45 PM CST Physical Therapy Outpatient Treatment Note SUBJECTIVE Patient's Name: Bella Jones Referring Provider: Neno Call M.D. Visit Diagnosis: 1. Debility Payor: AARP / Plan: AARP MEDICARE ADV[employer]AGE [employer] PPO / Product Type: PPO / No data recorded Epic Visit Count: 5 Patient comments: Bella comes into therapy today with no new complaints. OBJECTIVE Pain: Ortho Exam TREATMENT Treatment today consisted of: We tried working on strengthening exercises a little differently today. In supine, we worked on core strengthening. This included bridging exercises. We had her work on pelvic stabilization exerciseswith manual resistance. She worked on straight leg raises both single and double while trying to maintain proper stability of the lumbar spine. She worked on heel slides with manual resistance. In short sitting, we had her work on knee extension exercises with manual resistance. We then had her work on rows as well as pull Downs with the wall unit. Lastly, she worked on back extension exercises on machine followed by trunk rotation exercises with the wall unit. This is all for 2-3 sets of 10 rep etitions. Assessment Clinical Impression: Patient tolerated fairly well overall. This was challenging for her. Functional Goals and Timeframes: PT Goal #1: Patient will demonstrate lower extremity strength at a 5/5. PT Goal #1 Date: 09/29/23 PT Goal #2: Patient will demonstrate eed-cs-ilaje x5 in 11 seconds. PT Goal #2 Date: 09/29/23 PT Goal #3: Patient will demonstrate tug test in 16 seconds with the use of 4 wheeled walker. PT Goal #3 Date: 09/29/23 PT Goal #4: Patient will demonstrate 30 minutes of activity tolerance without rest. PT Goal #4 Date: 09/29/23 Plan We will continue to work on strengthening as able. Plan for next session: Time Spent with Patient Therapeutic Interventions Therapeutic Exercise (min): 45 min Time Tracking Total Timed Units (min): 45 min Total Treatment Time (min): 45 min D RIGGER documented in this encounter Plan of Treatment Not on file documented as of this encounter Visit Diagnoses Diagnosis Debility documented in this encounter Care Teams Mining Speculator Relationship Specialty Start Date End Date Elsewhere, Pcp PCP - General Family Medicine 03/11/21 documented as of this encounter
--- OUTSIDE RECORDS SUMMARY | 2023-10-10 16:43 | XMS_ITS | Encounter Summary ---
Author Name Unknown Organization [facility] Address [address] [place] [address] Care Team Providers Care Punch Operator Name Role Phone Elsewhere, Pcp Primary Care Provider Unavailabl e Reason for Visit * Physical Therapy (Routine) - Authorized Specialty Diagnoses / Procedures Referred By Kashmir t Referred To Contact Diagnoses Debility Procedures PT Ongoing treatment Neno Call M.D. [address] [place] [phone] [facility] Region Referral ID Status Reason Start Date Expiration Date V isits Requested Visits Authorized [id number] Authorized 08/16/2023 07/02/2024 40 40 Encounter Details Date Type Department Care Team (Late st Contact Info) Description 09/18/2023 1:45 PM CDT Clinical Support Department of Rehabilitation Services in [address] [phone] Neno Call M.D. [address] [place] [phone] Felipe Saravia P.T. [address] [place] [phone] Debility Social History Tobacco Use Types Packs/Day [...] this encounter Progress Notes * Felipe Saravia PSima. - 09/18/2023 1:45 PM CDT Subjective: Bella comes into therapy today accompanied by her . Her states that she has not been feeling well. She has been acting little different the past 1/2 hour. They feel that her sugars are low. Objective: I we brought patient back to physical therapy sitting in her 4 wheeled walker. We transferred her to the treatment table. Her glucose monitor did not register. This was low which was below 50 on a monitor. We had her take 2 cans a pineapple juice in 1 container of orange juice with David crackers.Prior to leaving, she states that she fell better but her glucose levels did not increase on her mon itor. Assessment: Patient was not feeling well enough to do any therapies today. However, prior to leaving, she was feeling better in she was more cognizant. Plan: We recommend that she call her primary care provider and discuss this with them. She does have another glucose monitor that she can use at home to check his sugars. She appeared to be much better prior to leaving. However, if these symptoms reoccur she should go to the ER. documented in this encounter Plan of Treatment Not on file documented as of this encounter Visit Diagnoses Diagnosis Debility documented in this encounter Care Teams Punch Operator Relationship Specialty Start Date End Date Elsewhere, Pcp PCP - General Family Medicine 03/11/21 documented as of this encounter
--- OUTSIDE RECORDS SUMMARY | 2023-10-10 16:43 | XMS_ITS | Encounter Summary ---
Author Name Unknown Organization [facility] Address [address] [place] [address] Care Team Providers Care Final Assembly Worker Name Role Phone Elsewhere, Pcp Primary Care Provider Unavailabl e Encounter Details Date Type Department Care Team (Late st Contact Info) Description 08/07/2023 Clinical Communication Department of Family Medicine, [facility], in [address] [phone] Elsewhere, Pcp Social History Tobacco Use Types Packs/Day Years [...] on filedocumented in this encounter Care Teams Final Assembly Worker Relationship Specialty Start Date End Date Elsewhere, Pcp PCP - General Family Medicine 03/11/21 documented as of this encounter
--- OUTSIDE RECORDS SUMMARY | 2023-10-10 16:43 | XMS_ITS | Encounter Summary ---
Author Name Unknown Organization [facility] Address [address] [place] [address] Care Team Providers Care Rehabilitation Physician Name Role Phone Elsewhere, Pcp Primary Care Provider Unavailabl e Reason for Referral * Physical Therapy (Routine) - Authorized Specialty Diagnoses / Procedures Referred By Kashmir sanchez Referred To Contact Diagnoses Debility Procedures PT Ongoing treatment Neno Call M.D. [address] [place] [phone] [facility] Referral ID Status Reason Start Date Expiration Date V isits Requested Visits Authorized [id number] Authorized 08/16/2023 07/02/2024 40 40 NEERING TECHNOLOGY INSTRUCTOR Reason for Visit * Appointment Request (Routine) - Closed Specialty Diagnoses / Procedures Referred By Kashmir sanchez Referred To Contact Physical Therapy Diagnoses Pain Ankle Left Pain Chronic Due To Trauma Neno Call M.D. [address] [place] [phone] Referral ID Status Reason Start Date Expiration Date Visits Re quested Visits Authorized [id number] Closed 03/15/2023 03/14/2024 1 1 Encounter Details Date Type Department Care Team (Latest Contact Info) Description 08/16/2023 2:15 PM ENGINEERING TECHNOLOGY INSTRUCTOR Comprehensive Visit Department of Rehabilitation Services in [address] [phone] Parisa Byrd P.A.-C. [address] [place] [phone] Parisa Byrd PTamTTam [address] [phone] Debility (Primary Dx) Social History Tobacco Use Types Packs/Day Years [...] documented as of this encounter Consult Notes * Parisa Byrd PTamT. - 08/16/2023 2:15 PM CST Physical Therapy Outpatient Evaluation/Treatment By co-signing this note, the provider certifies the therapy being provided to this patient is reasonable and necessary for the diagnosis or treatment of this patient. SUBJECTIVE Patient's Name: Bella Jones Referring Provider: Neno Call M.D. Visit Diagnosis: 1. Debility Payor: AARP / Plan: AARP MEDICARE ADVANTAGE [employer] PPO / Product Type: PPO / Epic Visit Count: 4 PERTINENT MEDICAL / SURGICAL HISTORY: Patient Active Problem List Diagnosis Fracture Radius Colles Closed Initial Right Hypertension NOS Diabetes Mellitus Type 2 (HCC) Osteoporosis Depression Major Recurrent (HCC) Atherosclerotic Heart Disease Of [place] Coronary Artery Without Angina Pectoris Past Surgical History: Procedure Laterality Date CATARACT EXTRACTION AND INSERTION OF INTRAOCULAR LENS N/A 05/31/2012 Cataract extraction and insertion of intraocular lens CATARACT EXTRACTION AND INSERTION OF INTRAOCULAR LENS N/A 06/14/2012 Cataract extraction and insertion of intraocular lens OPEN REDUCTION INTERNAL FIXATION WRIST Right 05/26/2021 Procedure: OPEN REDUCTION INTERNAL FIXATION WRIST-Right; Surgeon: Jorden Tineo M.D.; Location: [facility] OR Patient presents to outpatient physical therapy for evaluation of symptoms including: Weakness and balance Overall patient reports status is improving . History of Present Illness: Bella is a 68-year-old female who presents to physical therapy for weakness and balance. Patient has had multiple recent hospital admissions. Most recently for bilateral pleural effusion status post a left thoracentesis which was parapneumonic effusion and no malignancy. Patient has since discharged home. Patient reports she is independent with her ADLs and IADLs. Patient reports she has no stairs into her home. Everything is on the main level. She does have a ramp onher deck. She has a walk-in shower with bars and a shower chair. Patient was receiving home health but is no longer needing their services. Patient was provided with a home exercise program as she has not performing it. Prior Function/Occupational Profile: Patient has a complicated past medical history. Patient has history of diabetes with neuropathy affecting her balance, osteoporosis and atherosclerotic heart disease. She also has a history of COPD. Additional Staff Present During Session: no Patient goals: Improve strength and reduce fall risk OBJECTIVE PHYSICAL EXAM Pain: No complaints of pain Vitals: Blood pressure 143/66, heart rate 70 beats per minute and O2 SATs 97%. Ortho Exam Patient ambulates into physical therapy today independently utilizing a 4 wheeled walker. Patient properly assess the breaks. Patient stays within the walker base of support. Patient demonstrates equal stride length bilaterally. Lower extremity range of motion is within normal limits. Manual muscle testing the lower extremities is 4- out of 5 for hip abduction adduction. 3/5 right quadriceps, hamstrings and dorsiflexors. Ofc-jp-lcmfy x5 15 seconds. Tug test 26 seconds with the use of a 4 wheeled walker. Romberg stance with eyes open independent. Romberg stance with eyes closed independent. Tandem stance demonstrated mild trunk sway with intermittent upper extremity support. Activity tolerance: Sci-Fit Total body ergometer level 1 times 3 minutes. Patient maintained heart rate 70 beats per minute and O2 SATs 100%. Assessment Clinical Impression: Patient presents to physical therapy with signs and symptoms consistent with generalized weakness debility. Impairments: Strength gait and balance. Functional deficits: Decreased positional activity tolerance Rehab Potential: Patient has good potential to achieve established physical therapy goals within the time frame outlined below, provided active participation in the physical therapy treatment plan and home program. Functional Goals and Timeframes: PT Outpatient Goals PT Goal #1: Patient will demonstrate lower extremity strength at a 5/5. PT Goal #1 Date: 09/29/23 PT Goal #2: Patient will demonstrate jvk-lr-pycnf x5 in 11 seconds. PT Goal #2 Date: 09/29/23 PT Goal #3: Patient will demonstrate tug test in 16 seconds with the use of 4 wheeled walker. PT Goal #3 Date: 09/29/23 PT Goal #4: Patient will demonstrate 30 minutes of activity tolerance without rest. PT Goal #4 Date: 09/29/23 Plan Patient was educated regarding evaluative findings, diagnosis, prognosis, potential risks and benefits of rehabilitation interventions. A collaborative effort was used to establish goals and plan of care. The patient was informed of the right to make decisions regarding care, including refusal of examination or treatment or selection of services from another provider if desired. The treatment plan may be progressed or modified based upon the patient's response to treatment. Treatment Plan: Start of Plan of Care: 08/16/2023 Number of Visits: 18 visits PT Duration: 6 weeks PT Frequency: 3 times per week Treatment interventions may include: Education, strengthening gait balance training. Plan for next session: Strengthening gait and balance training. Time Spent with Patient Evaluations PT Eval - Low Complexity: 40 min Time Tracking Total Treatment Time (min): 40 min NEERING TECHNOLOGY INSTRUCTOR documented in this encounter Plan of Treatment Not on file documented as of this encounter Visit Diagnoses Diagnosis Debility- Primary documented in this encounter Care Teams Rehabilitation Physician Relationship Specialty Start Date End Date Elsewhere, Pcp PCP - General Family Medicine 03/11/21 documented as of this encounter
--- OUTSIDE RECORDS SUMMARY | 2023-10-10 16:43 | XMS_ITS | Encounter Summary ---
Author Name Unknown Organization [facility] Address [address] [place] [address] Care Team Providers Care Online Project Manager Name Role Phone Elsewhere, Pcp Primary Care Provider [facility] Reason for Visit * Reason Comments Foot Infection 68 yo presents to [facility] ED via private vehicle with c/o bilateral foot diabetic sores that have been present for last couple months but reports pain has been worsening over the last week. Patient is diabetic. Encounter Details Date Type Department Care Team (Late st Contact Info) Description 09/13/2023 9:13 PM CDT - 09/13/2023 9:47 PM CDT Emergency [facility] [address] [place] [address] [phone] Serafin Davidson, P.A.-C. [address] [place] [address] [phone] Pain Foot Right (Primary Dx) Discharge Disposition: Home or Self Care Social History Tobacco Use Types Packs/Day Years [...] oz) 09/13/2023 9:23 P M CDT Height - - Body Mass Index 19.03 09/15/2022 3:04 PM CDT documented in this encounter Discharge Instructions * Discharge Instructions* Serafin Davidson P.A.-C. - 09/13/2023 9:39 PM CDT Please return to the ER immediately if new symptoms develop, symptoms fail to improve, symptoms worsen, or you becomes concerned * Attachments The following attachments cannot be sent through Care Everywhere. * Foot Pain (Dutch) documented in this encounter Medications at Time of Discharge Medication Sig Dispensed Refills Start Date End Date albuterol 90 mcg/actuation inhaler Inhale 2 puffs every 6 (six) hours as needed for wheezing. 18 g 11 09/15/2022 alendronate (FOSAMAX) 70 mg tablet Take 70 mg by mouth once a week. 0 08/20/[address] tablet Take 1 tablet (81 mg total) by mouth daily. 90 tablet 3 09/15/2022 atorvastatin (LIPITOR) 10 mg tablet Take 20 mg by mouth daily. 0 08/20/2018 blood sugar diagnostic strips TEST FOUR TIMES DAILY 0 09/06/2018 clopidogreL (PLAVIX) 75 mg tablet Take 75 mg by mouth daily. 0 01/04/2023 diazePAM (Valium) 5 mg tablet Take 5 mg by mouth 2 (two) times a day as needed for anxiety (DIZZINESS). Take 1/2-1 tablet PO Twice daily PRN Dizziness 0 01/31/2023 diclofenac sodium (VOLTAREN) 1 % gel Apply 4 g topically 4 (four) times a day for 10 days. Apply to sternum. 100 g 0 09/15/2022 gabapentin (NEURONTIN) 600 mg tablet TAKE 1 AND ONE-HALF TABLETS BY MOUTH AT BEDTIME AND 1 TABLET EVERY MORNING 0 08/20/2018 insulin glargine (LANTUS) 100 unit/mL injection Inject 12 Units under the skin daily. 0 08/20/2018 insulin syringe-needle U-100 0.3 mL 31 gauge x 5/16 syringe For administering insulin at home. 0 08/20/2018 IP RX HUMAN REGULAR INSULIN 100 UNITS/ML CORRECTION SCALE PANEL Sliding scale per patient 0 04/03/2022 lacosamide (VIMPAT) 100 mg tablet Take 100 mg by mouth 2 (two) times a day. 0 levETIRAcetam (KEPPRA) 750 mg tablet Take 750 mg by mouth 2 (two) times a day. 0 08/20/2018 lisinopril (PRINIVIL,ZESTRIL) 20 mg tablet Take 20 mg by mouth daily. 0 01/23/2018 meclizine (ANTIVERT) 25 mg tablet Take 25 mg by mouth 3 (three) times a day. 0 01/31/2023 metoprolol succinate (TOPROL-XL) 200 mg 24 hr tablet Take 200 mg by mouth. 0 10/23/2018 midazolam (NAYZILAM) 5 mg/spray (0.1 mL) spray,non-aerosol nasal spray Administer into nostril(s). 0 04/26/2022 multivitamin tablet Take 1 tablet by mouth daily. 0 nitroglycerin (NITROSTAT) 0.[address] 0.4 mg under the tongue every 5 (five) minutes as needed for chest pain. 0 sertraline (ZOLOFT) 50 mg tablet Take 50 mg by mouth daily. 0 08/20/2018 tiotropium (Spiriva with HandiHaler) 18 mcg inhalation capsule Inhale 1 capsule (18 mcg total) daily. Using the HandiHaler device. 90 capsule 3 09/15/2022 documented as of this encounter ED Notes * Serafin Davidson P.A.-C. - 09/13/2023 9:47 PM CDT Images from the original note were not included. SUBJECTIVE CHIEF COMPLAINT/REASON FOR VISIT Foot Infection (68 yo presents to the ED via private vehicle with c/o bilateral foot diabetic soresthat have been present for last couple months but reports pain has been worsening over the last week. Patient is diabetic. ) HISTORY OF PRESENT ILLNESS 68-year-old diabetic female presents ER with complaints of sore to her right lateral foot that has been present for the last several months. She presents to the ER today for evaluation as she is concerned about possible infection. She denies any discharge, warmth to touch, or worsening pain compared to her baseline peripheral neuropathy. Denies foreign bodies. History provided by: Patient and significant other REVIEW OF SYSTEMS All pertinent systems reviewed and are negative except as discussed in HPI OBJECTIVE Initial Vitals Temperature 09/13/232121 36.4 ??C Pulse Rate 09/13/232121 71 Heart Rate -- Resp Rate 09/13/232121 18 Blood Pressure 09/13/232121 154/79 SpO2 09/13/232121 100 % Pain Score 09/13/232122 10 - Worst possible pain PHYSICAL EXAMINATION [...] abdominal tenderness. Musculoskeletal: Cervical back: Neck supple. Feet: Neurological: Alert and oriented to person, place, and time. Skin: Skin is warm. ASSESSMENT/PLAN Assessment and Plan Patient appears well. Based on history, physical exam, and all information gathered in the ER today; I do not suspect foot ulcer, osteomyelitis, abscess, cellulitis. . Patient's symptoms appear consistent with skin callus secondary to poorly fitting footwear. Considered additional testing includinglaboratory testing and imaging , but this does not appear to be indicated at this time given observable information at todays visit. I have reviewed patients previous clinic notes, ER visits, and laboratory testing. Admission does not appear to be indicate at this time, however pt's condition may change requiring repeat examination in the ER. Patient appears stable for continued care and work-up as inidicated as an outpatient. Patient will return to the ER if new symptoms develop, current symptoms worsen, symptoms fail to improve, patient becomes concerned. Patient discharged in good condition. We discussed the importance of diabetic foot care, orthopedic shoes designed specifically for diabetic feet, daily feet washing, and the importance of close follow up with PCP to ensure resolution of the area of concern.. I reviewed the following external records: office records and primary care records. Final Diagnoses: as of 09/14/23 002 Pain Foot Right Serafin Davidson, P.A.-Yony. 09/14/2323 documented in this encounter Plan of Treatment Not on file documented as of this encounter Visit Diagnoses Diagnosis Pain Foot Right- Primary documented in this encounter Care Teams Online Project Manager Relationship Specialty Start Date End Date Elsewhere, Pcp PCP - General Family Medicine 03/11/21 documented as of this encounter
--- OUTSIDE RECORDS SUMMARY | 2023-10-10 16:43 | XMS_ITS | Encounter Summary ---
Author Name Unknown Organization [facility] Address [address] [place] [address] Care Team Providers Care Product Support Rep Name Role Phone Elsewhere, Pcp Primary Care Provider Unavailabl e Reason for Visit * Physical Therapy (Routine) - Authorized Specialty Diagnoses / Procedures Referred By Kashmir t Referred To Contact Diagnoses Debility Procedures PT Ongoing treatment Neno Call M.D. [address] [place] [phone] [facility] Region Referral ID Status Reason Start Date Expiration Date V isits Requested Visits Authorized [id number] Authorized 08/16/2023 07/02/2024 40 40 Encounter Details Date Type Department Care Team (Late st Contact Info) Description 09/08/2023 1:15 PM MEDIA JOB TITLES Clinical Support Department of Rehabilitation Services in [address] [phone] Neno Call M.D. [address] [place] [phone] Felipe Saravia P.T. [address] [place] [address] [phone] Debility Social History Tobacco Use Types Packs/Day [...] Progress Notes * Felipe Saravia P.T. - 09/08/2023 1:15 PM CST Physical Therapy Outpatient Treatment Note SUBJECTIVE Patient's Name: Bella Jones Referring Provider: Neno Call M.D. Visit Diagnosis: 1. Debility Payor: [facility] / Plan: [employer] PPO / Product Type: PPO / No data recorded Epic Visit Count: 7 Patient comments: Bella comes into therapy after not having seen her for approximately 12 days. She states that she feels she is getting stronger overall. She was able to go for a walk the other day for about a block. However, she has been experiencing some pain over the lateral aspects of bilateral feet. This is worse on the right in comparison to the left. She is diabetic. She notes that she is getting some pressure sores along the lateral aspect of the feet. OBJECTIVE Pain: Ortho Exam We assess patient's feet today. She does have some noted redness and also what appears to be early stages of pressure sores. There is some scabbing noted. This is worse on the right in comparison to the left. TREATMENT Treatment today consisted of: We did continue with strengthening today. I we had patient start with bridging exercises followed by pelvic stabilization exercises with manual resistance. She did the same for straight leg raises aswell as heel slides. We had her work on hip abduction/adduction with manual resistance. In short sitting, she worked on knee extension exercises with manual resistance. We then had her work on rows as well as pull Downs with the wall unit. After this, she worked on squatting exercises. We included 4 lb weights in each hand. She then worked on back extension exercises at 85 lb. Assessment Clinical Impression: Patient tolerated well overall. She does show some increase in strength with her leg raises as wellas knee strength. She does have some sores on her feet secondary to her diabetes. We recommended that she make an appointment to have this assessed. Functional Goals and Timeframes: PT Goal #1: Patient will demonstrate lower extremity strength at a 5/5. PT Goal #1 Date: 09/29/23 PT Goal #2: Patient will demonstrate [id number] x5 in 11 seconds. PT Goal #2 Date: 09/29/23 PT Goal #3: Patient will demonstrate tug test in 16 seconds with the use of 4 wheeled walker. PT Goal #3 Date: 09/29/23 PT Goal #4: Patient will demonstrate 30 minutes of activity tolerance without rest. PT Goal #4 Date: 09/29/23 Plan We will continue. We will focus on strengthening. Plan for next session: Time Spent with Patient Therapeutic Interventions Therapeutic Exercise (min): 45 min Time Tracking Total Timed Units (min): 45 min Total Treatment Time (min): 45 min A JOB TITLES documented in this encounter Plan of Treatment Not on file documented as of this encounter Visit Diagnoses Diagnosis Debility documented in this encounter Care Teams Product Support Rep Relationship Specialty Start Date End Date Elsewhere, Pcp PCP - General Family Medicine 03/11/21 documented as of this encounter
--- OUTSIDE RECORDS SUMMARY | 2023-10-10 16:43 | XMS_ITS ---
Author Name Unknown Organization [facility] Address [address] [place] [address] Care Team Providers Care Parachute Repairer Name Role Phone Unavailable Unavailable Unavailable Surgery Details Not on file Complications Check Surgery Details section. Procedure Estimated Blood Loss Check Surgery Details section. Procedure Findings Check Surgery Details section. Procedure Specimens Taken Check Surgery Details section.
[2023-10-10 16:47] VITALS: BP 155/73; PULSE 63; RESP 18; TEMP 36.9; O2SAT 99; BMI 19.2
--- NOTE | 2023-10-10 16:56 | ED.GENADULT ---
HPI - General Adult General Time Seen by Provider: 16:56 Date Seen: 10/10/23 Chief complaint: Diabetic Related Problem Stated complaint: Ill Time Seen by Provider: 10/10/23 16:39 Source: patient, EMS, RN notes reviewed and old records reviewed Mode of arrival: EMS Limitations: no limitations History of Present Illness HPI narrative: Patient with history of diabetes currently on insulin presents with altered mentation. EMS called due to patient confusion, found a blood glucose 49. Oral glucose solution was given and blood sugar improved, improvement of mental status. Patient reports that she had a seizure, she does have a history of seizure disorder and takes Vimpat and Keppra, denies missing any medications, says she took her usual insulin today but did eat. Denies any recent illness. Related Data Home Medications Medication Instructions Recorded Confirmed gabapentin 600 mg tablet 900 mg PO HS 04/03/22 04/21/23 insulin glargine 100 unit/mL 19 unit subcut HS 04/03/22 04/21/23 subcutaneous solution (Lantus U-100 Insulin) insulin regular human 100 unit/mL 7 - 11 unit subcut TID 04/03/22 04/21/23 injection solution (Novolin R Regular U-100 Insulin) lacosamide 100 mg tablet 100 mg PO BID 04/03/22 04/21/23 levetiracetam 750 mg tablet 750 mg PO BID 04/03/22 04/21/23 lisinopril 10 mg tablet 5 mg PO DAILY 04/03/22 04/21/23 sertraline 50 mg tablet 50 mg PO DAILY 04/03/22 04/21/23 aspirin 81 mg tablet,delayed 81 mg PO DAILY 01/31/23 04/21/23 release (Adult Aspirin Regimen) clopidogrel 75 mg tablet 75 mg PO DAILY 01/31/23 04/21/23 atorvastatin 20 mg tablet 20 mg PO HS 04/21/23 04/21/23 gabapentin 600 mg tablet 600 mg PO DAILY 04/21/23 04/21/23 metoprolol succinate 100 mg 150 mg PO DAILY 04/21/23 04/21/23 tablet,extended release 24 hr multivitamin (Daily Multi-Vitamin 1 tab PO DAILY 04/21/23 04/21/23 tablet) nitroglycerin 0.4 mg sublingual 0.4 mg sublingual Q5M PRN 04/21/23 04/21/23 tablet Allergies Allergy/AdvReac Type Severity Reaction Status Date / Time No Known Drug Allergies Allergy Verified 04/03/22 10:13 [facility] Medical History (Updated 10/10/23 @ 19:20 by Lawrence Sanchez MD) Hypertension ?I10 - Essential (primary) hypertension (ICD-10) Social History What is your current living situation?: I presently have a place to live Problems where you live: no known problems Problems where you live details: N/A In the past 12 months, utilities in danger of being shut off: no In past 12 months, lack of transportation kept you from medical appts, meetings, work, or getting things needed for daily living: no In the past 12 mos, have been you worried that your food would run out before you had money to buy more?: never true In the past 12 mos, the food you bought just didn't last and you didn't have money to buy more?: never true Highest level of school completed/degree received: Associate degree: occupational, technical, vocational program Smoking Status: Current every day smoker What tobacco products do you use: cigarettes Do you use any of these nicotine containing products: None Nicotine containing products detail: Per patient statement 1-2 cigarettes per day Second hand tobacco smoke exposure: No How often do you have a drink containing alcohol: 2-4 times a month How many standard drinks containing alcohol do you have on a typical day: 1 or 2 How often do you have six or more drinks on one occasion: Never AUDIT-C Alcohol total score: 2 Non-prescribed substance use: denies use How often does anyone, including family, friends and others, physically hurt you: never How often does anyone, including family, friends and others, insult or talk down to you: never How often does anyone, including family, friends and others, threaten you with harm: never How often does anyone, including family, friends and others, scream or curse at you: never service: No Exam Narrative: Exam Narrative: General: Well-developed and well-nourished, no acute distress Head: Atraumatic and normocephalic Eyes: Pupils are equal reactive, extraocular motions intact, conjunctiva clear ENT: External nose and ears are normal, posterior pharynx without erythema or exudate Neck: No midline cervical tenderness, full spontaneous range of motion the neck, trachea midline, no adenopathy Heart: Regular rate and rhythm no murmurs or thrills Lungs: Clear to auscultation bilaterally without wheezes or crackles Abdomen: Soft, nontender, nondistended with active bowel sounds Musculoskeletal: No tenderness, deformity, or edema Neurologic: Awake, alert, and oriented x3, no gross focal neurologic deficits, cranial nerves intact as tested Psych: Mood and affect are appropriate Skin: No rashes Const: Vital Signs, click to edit/add: Vital Signs - 24 hr 10/10/23 16:47 10/10/23 18:02 10/10/23 18:03 Temperature 98.4 F Pulse Rate 58 L 57 L Pulse Rate [Left P ulse Oximeter] 63 Respiratory Rate 18 Blood Pressure 129/79 Blood Pressure [Ri ght Upper Arm] 155/73 H Pulse Oximetry 99 99 100 Oxygen Delivery Me thod Room Air 10/10/23 18:15 10/10/23 18:30 10/10/23 18:32 Temperature Pulse Rate 55 L 58 L Pulse Rate [Left P ulse Oximeter] Respiratory Rate Blood Pressure 148/64 H Blood Pressure [Ri ght Upper Arm] Pulse Oximetry 100 100 Oxygen Delivery Me thod Course Course ED Course: Reviewed most recent discharge summary from April 2023 when patient was admitted for encephalopathy and pneumonia, cleared while admitted it was thought the encephalopathy might be in part due to gabapentin toxicity. Patient presents today with an episode of confusion. Patient says she had a seizure although this was not reported by EMS. In any case she had confusion and some hypoglycemia when EMS initially arrived, this is improved with oral intake and patient is back to baseline mentation at the time of my exam. Labs are ordered. No history of fall, no external signs of trauma and so head CT is not ordered at this time. Patient will be observed in the emergency department. Reevaluation(s) Time of Reevaluation #1: 18:10 Reevaluation #1: Basic metabolic panel in panel interpreted by me with glucose of 40 and will recheck, CBC is normal, mild elevation in the AST, ALT, alkaline phosphatase with normal ammonia, alcohol level is negative, troponin is negative. Time of Reevaluation #2: 19:07 Reevaluation #2: Patient recheck, she remains vital is stable and is doing well. Blood glucose is stabilized little bit as well. Chest x-ray independently interpreted by me negative for acute findings. Will recheck blood glucose in a patient is maintaining, can be discharged. Vital Signs Vital signs: Initial Vital Signs Temperature 98.4 F 10/10/23 16:47 Temperature Source Temporal Artery Scan 10/10/23 16:47 Pulse Rate 63 10/10/23 16:47 Pulse Rhythm Regular 10/10/23 16:47 Pulse Strength 3+ Normal 10/10/23 16:47 Respiratory Rate 18 10/10/23 16:47 Blood Pressure 155/73 H 10/10/23 16:47 Blood Pressure Mean 100 10/10/23 16:47 Blood Pressure Position Supine 10/10/23 16:47 Pulse Oximetry 99 10/10/23 16:47 Oxygen Delivery Method Room Air 10/10/23 16:47 Vital Signs Temperature 98.4 F 10/10/23 16:47 Pulse Rate 63 10/10/23 16:47 Respiratory Rate 18 10/10/23 16:47 Blood Pressure 155/73 H 10/10/23 16:47 Pulse Oximetry 99 10/10/23 16:47 Oxygen Delivery Method Room Air 10/10/23 16:47 Temperature 98.4 F 10/10/23 16:47 Pulse Rate 58 L 10/10/23 18:30 Respiratory Rate 18 10/10/23 16:47 Blood Pressure 148/64 H 10/10/23 18:32 Pulse Oximetry 100 10/10/23 18:30 Oxygen Delivery Method Room Air 10/10/23 16:47 Medical Decision Making Lab Data Labs: Lab Results 10/10/23 10/10/23 10/10/23 Range/Units 17:04 17:20 17:57 WBC 6.41 (4.50-11.00) K/uL RBC 4.04 (4.00-5.20) m/uL Hgb 12.4 (12.0-16.0) gm/dL Hct 38.2 (33.0-51.0) % MCV 95 (80-100) fL MCH 31 (26-34) pg MCHC 33 (32-36) gm/dL RDW Coeff of Alicia 12.5 (11.5-15.5) % Plt Count 321 (140-440) K/uL Neut % (Auto) 58.9 (42.0-72.0) % Lymph % (Auto) 25.0 (20-44) % Crawford % (Auto) 11.1 H (0.0-11.0) % Eos % (Auto) 3.7 (0.0-7.0) % Baso % (Auto) 0.8 (0.0-3.0) % Neut # (Auto) 3.78 (1.7-7.0) K/uL Lymph # (Auto) 1.60 (0.90-2.90) K/uL Crawford # (Auto) 0.70 (0.00-0.90) K/UL Eos # (Auto) 0.24 (0.00-0.50) K/uL Baso # (Auto) 0.05 (0.00-0.30) K/uL Abs Immat Gran (auto) 0.03 (0.00-0.30) K/uL Imm/Tot Granulo (auto) 0.5 % Sodium 134 L (135-149) mmol/L Potassium 3.9 (3.6-5.1) mmol/L Chloride 96 (96-114) mmol/L Carbon Dioxide 35 H (20-32) mmol/L Anion Gap 3 L (7-15) mEq/L BUN 14 (7-30) mg/dL Creatinine 0.8 (0.5-1.5) mg/dL Estimated Creat Clear 41.05 Estimated GFR 81 ml/min Glucose 40 L* (60-115) mg/dL Calcium 9.2 (8.4-10.6) mg/dL Magnesium 2.4 (1.5-2.6) mg/dL Total Bilirubin 0.4 (0.1-1.5) mg/dL Direct Bilirubin 0.1 (0.0-0.5) mg/dL AST 59 H (12-35) U/L ALT 41 H (4-35) U/L Alkaline Phosphatase 195 H (40-150) U/L Ammonia < 9.0 L (13.1-30.0) umol/L Total Protein 7.8 (6.0-8.3) g/dL Albumin 4.2 (3.3-5.0) g/dL Ur Drug Screen Comment See Note Ethyl Alcohol < 0.01 L (0.01-0.03) % SARS-CoV-2 (PCR) Negative SARS-CoV-2 (Negative) Influenza Type A (PCR) Negative PCR FLU A (Negative) Influenza Type B (PCR) Negative PCR FLU B (Negative) RSV (PCR) Negative PCR RSV (Negative) POC Troponin I 0.02 (0.01-0.04) ng/ml ECG Data Attestation: I personally reviewed and interpreted this ECG as follows: Prior ECG tracings: not available for review Interpretation: Independently interpreted by me performed at 5:12 a.m. p.m. demonstrates sinus rhythm rate 60, bundle-branch block, QTC 542, FL 188. Compared to prior of May 2023, rate his increased in previously seen ST depressions are absent Discharge Plan Discharge Clinical Impression: Diabetes mellitus with hypoglycemia, Seizure disorder, Syncope Patient Disposition: Home w/ Parent or Adult Condition: Stable Instructions: Hypoglycemia in a Person with Diabetes (DC) Additional Instructions: Take 1/2 dose of your usual evening insulin today Check your blood glucose every 2 hours for the next 24 hours Contact your neurologist to discuss further seizure management, medication levels are in process but may take a couple of days No driving until you follow-up with your doctor and neurologist Activity Level: Activity as Tolerated Discharge Diet: Diabetic Prescriptions: No Action gabapentin 600 mg tablet 900 mg PO HS Patient Comments: insulin glargine [Lantus U-100 Insulin] 100 unit/mL solution 19 unit SUBCUT HS Novolin R Regular U100 Insulin 100 unit/mL solution 7 - 11 unit subcut TID lacosamide 100 mg tablet 100 mg PO BID levetiracetam 750 mg tablet 750 mg PO BID lisinopril 10 mg tablet 5 mg PO DAILY sertraline 50 mg tablet 50 mg PO DAILY clopidogrel 75 mg tablet 75 mg PO DAILY aspirin [Adult Aspirin Regimen] 81 mg tablet,delayed release (DR/EC) 81 mg PO DAILY atorvastatin 20 mg tablet 20 mg PO HS gabapentin 600 mg tablet 600 mg PO DAILY metoprolol succinate 100 mg tablet extended release 24 hr 150 mg PO DAILY multivitamin [Daily Multi-Vitamin] Tablet 1 tab PO DAILY nitroglycerin 0.4 mg tablet, sublingual 0.4 mg sublingual Q5M PRN Follow Up/Referrals: David Sparks MD [Referring] - Stand Alone Forms: [employer]apse[employer] Info Instructions
--- NOTE | 2023-10-10 17:04 | XR_ITS ---
Patient: MARCO A ORDONEZ Facility:?[facility] Patient ID:?[id number] Site Patient ID:?[id number]. Site :?[id number] Study:?XRay-Chest Portable-10/10/2023 5:54:54 PM Ordering Physician:Aden Yepez Final Report: Indication Altered mental status Technique One view(s) of the chest Comparison Chest radiograph on April 22, 2023 Findings The cardiomediastinal silhouette and pulmonary vasculature are unremarkable. There is no focal airspace consolidation, pleural effusion, or pneumothorax. No displaced fractures. Impression No acute cardiopulmonary process. Dictated by Diogenes Covarrubias MD @ 10/10/2023 6:39:33 PM Signed by:?Diogenes Covarrubias MD @10/10/2023 6:39:33 PM (Electronic Signature)
[2023-10-10 17:28] LABS: Basophils Absolute Auto 0.05 K/uL (0.00-0.30); Basophils Percent Auto 0.8 % (0.0-3.0); Eosinophils Absolute Auto 0.24 K/uL (0.00-0.50); Eosinophils Percent Auto 3.7 % (0.0-7.0); Hematocrit 38.2 % (33.0-51.0); Hemoglobin* 12.4 gm/dL (12.0-16.0); Immature Granulocytes Abs Auto 0.03 K/uL (0.00-0.30); Immature Granulocytes Pct Auto 0.5 %; Mean Corpuscular HGB Conc 33 gm/dL (32-36); Mean Corpuscular Hemoglobin 31 pg (26-34); Mean Corpuscular Volume 95 fL (80-100); Monocytes Percent Auto 11.1 % (0.0-11.0); Neutrophils Absolute Auto 3.78 K/uL (1.7-7.0); Neutrophils Percent Auto 58.9 % (42.0-72.0); Platelet Count* 321 K/uL (140-440); RDW Coefficient of Variation % 12.5 % (11.5-15.5); Red Blood Count 4.04 m/uL (4.00-5.20); White Blood Count* 6.41 K/uL (4.50-11.00)
[2023-10-10 17:38] LABS: Troponin, Point-of-Care* 0.02 ng/ml (0.01-0.04)
--- OUTSIDE RECORDS SUMMARY | 2023-10-10 17:44 | XMS_ITS | Encounter Summary ---
Author Name Unknown Organization [facility] Address [address] [place] [address] Care Team Providers Care Apparel Patternmaker Name Role Phone Elsewhere, Pcp [facility] Reason for Visit * Reason Comments Foot Infection 68 yo presents to [facility] ED via private vehicle with c/o bilateral foot diabetic sores that have been present for last couple months but reports pain has been worsening over the last week. Patient is diabetic. Encounter Details Date Type Department Care Team (Late st Contact Info) Description 09/13/2023 9:13 PM CDT - 09/13/2023 9:47 PM CDT Emergency [facility] [address] [place] [address] [phone] Serafin Davidson, P.A.-C. [address] [place] [address] [phone] Pain Foot Right (Primary Dx) Discharge Disposition: [...] sent through Care Everywhere. * Foot Pain (Japanese) documented in this encounter Medications at Time [...] Primary documented in this encounter Care Teams Apparel Patternmaker Relationship Specialty Start Date End Date Elsewhere, Pcp PCP - General Family Medicine 03/11/21 documented as of this encounter
--- OUTSIDE RECORDS SUMMARY | 2023-10-10 17:44 | XMS_ITS | Encounter Summary ---
Author Name Unknown Organization [facility] Address [address] [place] [address] Care Team Providers Care Dyeing Machine Tender Name Role Phone Elsewhere, Pcp Primary Care Provider Unavailabl e Encounter Details Date Type Department Care Team (Latest Contact Info) Description 09/18/2023 Clinical Communication Department of Rehabilitation Services in [address] [phone] Felipe Saravia, P.TTam [address] [place] [address] [phone] Social History Tobacco Use Types Packs/Day Years [...] on filedocumented in this encounter Care Teams Dyeing Machine Tender Relationship Specialty Start Date End Date Elsewhere, Pcp PCP - General Family Medicine 03/11/21 documented as of this encounter
--- OUTSIDE RECORDS SUMMARY | 2023-10-10 17:44 | XMS_ITS | Clinical Summary ---
Author Name Unknown Organization [facility] Address [address] [place] [address] Care Team Providers Care Dewer Name Role Phone Elsewhere, Pcp Primary Care Provider Unavailabl e Source Comments Patient records contain information from all sites at [facility]. For routine questions regarding patient records, call [phone] during business hours, M-F 8:00 AM - 5:00 PM Central Time. Record requests for emergency care only can be directed to [phone] at any time.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 Beissel, Curtis J, P.T. Debility 09/18/2023 Clinical Communication Department of Rehabilitation Services in [address] [phone] Felipe Saravia, P.T. 09/13/2023 9:13 PM CDT - 09/13/2023 9:47 PM CDT Emergency [facility] [address] [place] [phone] Serafin Davidson, HeribertoAKacie. Pain Foot Right (Primary Dx) Discharge Disposition: Home or Self Care 09/08/2023 1:15 PM BRAZER FURNACE Clinical Support Department of Rehabilitation Services in [address] [phone] Neno Call M.D. Beissel, Curtis J, P.T. Debility 08/28/2023 1:45 PM BRAZER FURNACE Clinical Support Department of Rehabilitation Services in [address] [phone] Neno Call M.D. Beissel, Curtis J, P.T. Debility 08/21/2023 1:45 PM BRAZER FURNACE Clinical Support Department of Rehabilitation Services in [address] [phone] Neno Call M.D. Beissel, Curtis J, P.T. Debility 08/16/2023 2:15 PM BRAZER FURNACE Comprehensive Visit Department of Rehabilitation Services in [address] [phone] Parisa Byrd P.A.-C. Fogarty, Jennifer L, P.T. Debility (Primary Dx) 08/07/2023 Clinical Communication Department of Family Medicine, [facility], in [address] [phone] Elsewhere, Pcp from Last 3 Months Immunizations [...] history exists Medical Devices Implanted Type Area Music Autographer Device Identifier Shelf Expiration Date Model / Serial / Lot Plt Wrst Dvr Rt 3h 24.4x51.3 - [id number] Implanted:Qty : 1 on 05/26/2021 by Jorden Tineo M.D. at [facility] Hardware e.g. pins/screws/ rods [employer] [id number] / / 07.05.20. [address] S[address] Sngl 1.6x127 - [id number] Implanted:Qty : 1 on 05/26/2021 by Jorden Tineo M.D. at [facility] Hardware e.g. pins/screws/ rods [employer] [id number] / / 07.05.20. 319 [address] Dvr Fthrd 3.5x12 - [id number] Implanted:Qty : 2 on 05/26/2021 by Jorden Tineo M.D. at [facility] Hardware e.g. pins/screws/ rods [employer] [id number] / / 07.05.20. 319 Peg Fix Dvr Pthrd Lng 2.5x22 - [id number] Implanted:Qty : 3 on 05/26/2021 by Jorden Tineo M.D. at [facility] Hardware e.g. pins/screws/ rods Right: Wrist [employer] [id number] / / 07.05.20. 319 Peg Fix Dvr Pthrd Lng 2.5x16 - [id number] Implanted:Qty : 1 on 05/26/2021 by Jorden Tineo M.D. at [facility] Hardware e.g. pins/screws/ rods Right: Wrist [employer] [id number] / / 07.05.20. 319 Peg Fix Dvr Smth Lng 2.0x18 - [id number] Implanted:Qty : 3 on 05/26/2021 by Jorden Tineo M.D. at [facility] Hardware e.g. pins/screws/ rods Right: Wrist [employer] [id number] / / 07.05.20. 319 Scrw Dvr Fthrd 3.5x13 - [id number] Implanted:Qty : 1 on 05/26/2021 by Joredn Tineo M.D. at [facility] Hardware e.g. pins/screws/ rods [employer] [id number] / 07.05.20. 319 Care Teams Dewer Relationship Specialty Start Date End Date Elsewhere, Pcp PCP - General Family Medicine 03/11/21
--- OUTSIDE RECORDS SUMMARY | 2023-10-10 17:44 | XMS_ITS | Encounter Summary ---
Author Name Unknown Organization [facility] Address [address] [place] [address] Care Team Providers Care Repairer And Checker Name Role Phone Elsewhere, Pcp Primary Care Provider Unavailabl e Reason for Visit * Physical Therapy (Routine) - Authorized Specialty Diagnoses / Procedures Referred By Kashmir t Referred To Contact Diagnoses Debility Procedures PT Ongoing treatment Neno Call M.D. [address] [place] [phone] [facility] Region Referral ID Status Reason Start Date Expiration Date V isits Requested Visits Authorized [id number] Authorized 08/16/2023 07/02/2024 40 40 Encounter Details Date Type Department Care Team (Late st Contact Info) Description 08/28/2023 1:45 PM LETTER OF CREDIT DOCUMENT EXAMINER Clinical Support Department of Rehabilitation Services in [address] [phone] Neno Call M.D. [address] [place] [phone] Felipe Saravia P.T. [address] [place] [address] [phone] Debility Social History Tobacco Use Types Packs/Day [...] Progress Notes * Felipe Saravia P.T. - 08/28/2023 1:45 PM CST Physical [...] 09/29/23 PT Goal #2: Patient will demonstrate [id number]-[id number] x5 in 11 seconds. PT Goal #2 [...] min Total Treatment Time (min): 45 min ER OF CREDIT DOCUMENT EXAMINER documented in this encounter Plan of Treatment Not on file documented as of this encounter Visit Diagnoses Diagnosis Debility documented in this encounter Care Teams Repairer And Checker Relationship Specialty Start Date End Date Elsewhere, Pcp PCP - General Family Medicine 03/11/21 documented as of this encounter
--- OUTSIDE RECORDS SUMMARY | 2023-10-10 17:44 | XMS_ITS | Encounter Summary ---
Author Name Unknown Organization [facility] Address [address] [place] [address] Care Team Providers Care Liquor Tester Name Role Phone Elsewhere, Pcp Primary Care Provider Unavailabl e Reason for Visit * Physical Therapy (Routine) - Authorized Specialty Diagnoses / Procedures Referred By Kashmir t Referred To Contact Diagnoses Debility Procedures PT Ongoing treatment Neno Call M.D. [address] [place] [phone] [facility] Region Referral ID Status Reason Start Date Expiration Date V isits Requested Visits Authorized [id number] Authorized 08/16/2023 07/02/2024 40 40 Encounter Details Date Type Department Care Team (Late st Contact Info) Description 09/18/2023 1:45 PM CDT Clinical Support Department of Rehabilitation Services in [address] [phone] Neno Call M.D. [address] [place] [phone] Felipe Saravia P.T. [address] [place] [address] [phone] Debility Social History Tobacco Use Types Packs/Day [...] Debility documented in this encounter Care Teams Liquor Tester Relationship Specialty Start Date End Date Elsewhere, Pcp PCP - General Family Medicine 03/11/21 documented as of this encounter
--- OUTSIDE RECORDS SUMMARY | 2023-10-10 17:44 | XMS_ITS | Clinical Summary ---
Author Name Unknown Organization [employer] [facility] Address [place], [place] [address] Care Team Providers Care Caster Helper Name Role Phone [facility] Care, Mauri Unavailable Raegan Dumont Unavailable Parisa Callahan Primary Care Provider [phone] Allergies Active Allergy Reactions Criticality Noted Date [...] be used to read blood sugars per bobbin cleaner hand's directions. 1 Each 3 Active insulin syringe-needle [...] aspirin (ECOTRIN) 81 mg enteric coated tabletIndications:[facility] care Take 1 Tablet (81 mg) by mouth once daily with a meal. 0 3 Active folic acid 1 mg tabletIndications:[facility] Take 1 Tablet (1 mg) by mouth once daily. 0 3 Active thiamine (VITAMIN B1) 100 mg tabletIndications:[facility] Take 1 Tablet (100 mg) by mouth [...] mg) by mouth at bedtime. Please call [phone] 2 months in advance to schedule an office visit due in December 2023 90 Tablet 4 Active metoprolol succinate (TOPROL XL) 100 mg Sustained-Release tabletIndications:H ypertension, unspecified type,Coronary artery disease, unspecified vessel or lesion type, unspecified whether angina present, unspecified whether [place] or transplanted heart,Cardiomyopath y, unspecified type (HC) Take 1.5 Tablets (150 mg) by mouth once daily. Additional refills require cardiology appt. Please call [phone] to schedule 135 Tablet 4 Active cephalexin [...] 02/02/2023 09/23/2023 Atherosclerotic heart diseas e of [place] coronary artery without angina pectoris 09/15/2022 09/23/2023 Protein-calorie malnutrition 08/03/2021 09/23/2023 Osteomyelitis of great toe of right foot 08/03/2021 09/23/2023 Depression, recurrent 08/03/20212023 DIABETES 05/24/2002 09/23/2023 Encounters Date Type Department Care Team Description 10/10/2023 Refill [facility] [address] [place] [address] Lakisha Mcclure MD Refill Request 10/10/[address] [facility] [address] [place] [address] Jordy Dash MD 10/09/2023 3:30 PM CDT Ancillary Procedure [facility] [address] [place] [address] Arrived 10/09/2023 3:15 PM CDT Orders Only [facility] [address] [place] [address] Lab, [facility] 10/09/2023 1:00 PM CDT Office Visit [facility] [address] [place] [address] Jordy Dash MD CV Vascular New ([place] Consult; lower extremity PAD. Referred by HUGH Oseguera, all records in EPIC. CTA not needed per Dr. Dash, U/Ss available in MARVIN) 10/09/2023 Travel 10/04/[address] [facility] [address] [place] [address] Jordy Dash MD Referral 09/29/[address] [facility] [address] [place] [address] Edson Price MD Referral 09/28/2023 Orders Only [facility] [address] [place] [address] Fannie Rubin PA <No scans attached> 09/28/2023 Telephone [facility] [address] [place] [address] Parisa Callahan PA Results 09/28/2023 Orders Only [facility] [address] [place] [address] Parisa Callahan PA <No scans attached> 09/27/2023 7:06 AM CDT - 09/27/2023 11:59 PM CDT Hospital Encounter [facility] [address] [facility] [address] [place] [address] Parisa Callahan PA Claudication of both lower extremities (HC) 09/27/2023 Travel 09/21/2023 2:00 PM CDT Ancillary Procedure [address] [address] 09/21/2023 1:45 PM CDT Ancillary Procedure [address] [address] 09/21/2023 1:30 PM CDT Ancillary Procedure [address] [address] 09/21/2023 12:50 PM CDT Office Visit [facility] [address] [place] [address] Parisa Callahan PA Foot Pain/problem (Bilateral foot pain-so bad she can't sleep); Shoulder Pain/problem (Fell a week ago and hurt right shoulder) 09/21/2023 Travel 09/20/[address] [address] Parisa Callahan PA Refill Request (Humulin R Regular U-100 Insuln) 09/11/2023 Nurse Triage [facility] [address] [place] [address] Parisa Callahan PA Foot Pain/problem 09/11/2023 Telephone [facility] [address] [place] [address] Parisa Callahan PA Follow Up (message) 09/08/2023 Telephone [facility] [address] [place] [address] Darian Garcia MBBS Results (CT) 09/08/2023 Orders Only [facility] [address] [address] Darian Garcia MBBS <No scans attached> 09/02/2023 Orders Only [facility] [address] [facility] [place] [address] [facility] <No scans attached> 08/21/[address] [facility] [address] [place] [address] Dov Willard MD Refill Request (Metoprolol Succinate) 08/11/[address] [facility] [address] [place] [address] Dov Willard MD Refill Request (Atorvastatin) 08/07/2023 Telephone [facility] [address] [place] [address] Parisa Callahan PA Outside Order 08/05/2023 Refill [facility] [address] [place] [address] Parisa Callahan PA Refill Request (Sertraline) 08/04/2023 1:30 PM SHOESHINER Office Visit [facility] [address] [place] [address] Darian Garcia MBBS Follow Up (Pleural effusion/COPD) 08/04/[address] [place] [address] [place] 08/04/2023 Travel 08/03/2023 Refill [facility] [address] [place] [address] Parisa Callahan PA Refill Request (Levetiracetam) 07/27/2023 11:40 AM SHOESHINER Office Visit [facility] [address] [place] [phone] Follow Up 07/27/2023 10:42 AM SHOESHINER - 07/27/2023 11:59 PM SHOESHINER Hospital Encounter Medical Imaging [address] [place] [address] Referring, Provider Unspecified fracture of unspecified thoracic vertebra, subsequent encounter for fracture with routine healing 07/27/2023 Travel 07/21/2023 Telephone [facility] [address] [place] [address] Parisa Callahan PA Refill Request (gabapentin) from Last 3 Months Immunizations Name Administration Dates Next Due COVID-19 vaccine ([employer] NTech 30mcg/0.3mL) 12YO+ BIVALENT PF, MDV 04/07/2022 [...] 156.2 cm (5' 1.5) 08/04/2023 1:17 PM SHOESHINER Body Mass Index 19.15 08/04/2023 1:17 PM SHOESHINER Plan of Treatment Upcoming Encounters Date Type Department Care Team (Late st Contact Info) Description 10/17/2023 3:15 PM CDT Office Visit [facility] [address] [place] [address] Huey Bal, MARIANNA [address] [place] [address] 10/18/2023 1:00 PM CDT Office Visit [facility] [address] [place] [address] 11/09/2023 1:30 PM CDT Office Visit [facility] [address] [place] [address] Linsey Andrew MD [address] [place] [address] Health Maintenance Due Date Last Done Comments Fecal testing non-DNA (FIT,FOBT,iFOBT) for age 45-75 11/02/2022 11/02/2021 (Completed o [facility]), 11/29/2018 Medicare Wellness for age [...] CT CHEST WO Routine 09/02/2023 1:50 PM SHOESHINER Multiple lung nodules XR SPINE THORACIC 2 VIEWS Routine 07/27/2023 10:59 AM SHOESHINER Unspecified fracture of unspecified thoracic vertebra, subsequent encounter for fracture with routine healing XR SPINE CERVICAL 3 VIEWS Routine 07/27/2023 10:58 AM SHOESHINER Unspecified fracture of unspecified thoracic vertebra, subsequent [...] artery due to calcified and noncalcified plaque, [id number]-hnrzxohy severity left Common femoral artery coral reef [...] 70 percent stenosis around Maxx`s canal, and qvzjprrhdcor16 percent multifocal stenosis of the popliteal artery. [...] iliac artery due to calcified andnoncalcified plaque, qfpg-wo-opzazqpc severity left Common femoral arterycoral reef plaque, [...] (ABNORMAL) CREATININE,ISTAT (10/09/2023 3:48 PM CDT) Pathologist [facility] CREATININE, POCT 0.90 0.57 - 1.11 mg/dL 10/09/2023 3:50 PM CDT [facility] Comment:Caution: Patients ta mariaelena Hydroxyurea have falsely increased iStat Creatinine results. Verify creatinine results ordering a Creatinine (17399.2) eGFR 70(L) >90 mL/min/1.7 3m2 10/09/2023 3:50 PM CDT [facility] Comment:As of 2021, eG FR is calculated by the CKD-EPI creatinine equation without race adjustment. eGFR can be influenced by muscle mass, exercise, and diet. The reported eGFR is an estimation only and is only applicable if the renal function is stable. Blood BLOOD SPECIMEN / Unknown 10/09/2023 3:48 PM CDT 10/09/2023 3:50 PM CDT Parisa REESE CHEMISTRY [facility] [address] [place] [address], * US ARTERIAL SEG W TOE PRESSURES (09/27/2023 8:16 AM CDT) Anatomical Region Laterality Modality LEGS Ultrasound 09/27/2023 7:18 AM CDT Narrative 09/27/2023 3:45 PM CDT VASCULAR ULTRASOUND REPORT MARCO A JONES Accession#: ?? [id number] : ?1955 Study Date: ?? 09/27/2023 7:18:54 AM Age: ?68 years ?? Tech: ? AMS Gender: F ?Referring MD: PARISA CALLAHAN Site: [facility] Vascular [facility] Study performed: ?Lower extremity resting SHANE, (bilateral). [...] Index +-----+ +--------+ +-----+ 0.60 ? 91 ?POLL CLERK ?142 ? 0.94 +-----+ +--------+ +-----+ 0.68 ?103 ?DPA ?145 ? 0.96 +-----+ +--------+ +-----+ 0.22 ? 33 ? Digit 1 ?113 ? 0.75 +-----+ +--------+ +-----+ ROBB Johnson. Electronically signed on 09/27/2023 3:45:37 PM This study was performed and interpreted by a service accredited by the Intersocietal Accreditation Commission (IAC/Vascular), www.intersocietal.org/vascular Report generated by [employer]. ??Final ?? Procedure Note Radha Laguna MBBS - 09/27/2023 VASCULAR ULTRASOUND REPORT MARCO A JONES : 1955 Study Date: 09/27/2023 7:18:54 AM Age: 68 years Tech: AMS Gender: F Referring MD: PARISA CALLAHAN Site: [facility] Study performed: Lower extremity resting SHANE, (bilateral). [...] 150 Index +-----+ +--------+ +-----+ 0.60 91 POLL CLERK 142 0.94 +-----+ +--------+ +-----+ 0.68 103 DPA 145 0.96 +-----+ +--------+ +-----+ 0.22 33 Digit 1 113 0.75 +-----+ +--------+ +-----+ ROBB Johnson. Electronically signed on 09/27/2023 3:45:37 PM This study was performed and interpreted by a service accredited by theIntersocietal Accreditation Commission (IAC/Vascular),www.intersocietal.org/vascular Report generated by [employer]. Final Parisa REESE US * US ARTERIAL LOWER EXTREMITY RIGHT (09/27/2023 8:16 AM CDT) Anatomical Region Laterality Modality Ultrasound 09/27/2023 7:32 AM CDT Narrative 09/27/2023 3:44 PM CDT VASCULAR ULTRASOUND REPORT MARCO A JONES Accession#: ?? [id number] : ?1955 Study Date: ?? 09/27/2023 7:32:28 AM Age: ?68 years ?? Tech: ? AMS Gender: F ?Referring MD: PARISA CALLAHAN Site: [facility] Study performed: ?Lower extremity duplex US, (right). [...] for comparison. FINDINGS: Elevated velocities at the REGIONAL LIAISON are consistent with a severe (75-99%) stenosis. Monophasic waveforms noted distally through out the RT LE. +--------+ + RIGHT ?? Velocity cm/s +--------+ + EIA DST ? 34 ? +--------+ + REGIONAL LIAISON DST ? 629 ? +--------+ + PFA ? 102 ? +--------+ + SFA PRX ? 224 ? +--------+ + SFA MID ? 72 ? +--------+ + SFA DST ? 44 ? +--------+ + OBDULIA PRX ? 53 ? +--------+ + OBDULIA DST ? 35 ? +--------+ + TPT ? 30 ? +--------+ + POLL CLERK DST ? 27 ? +--------+ + ISIAH [...] Accreditation Commission (IAC/Vascular), www.intersocietal.org/vascular Report generated by [employer]. ??Final ?? Procedure Note Radha Laguna MBBS - 09/27/2023 VASCULAR ULTRASOUND REPORT MARCO A JONES : 1955 Study Date: 09/27/2023 7:32:28 AM Age: 68 years Tech: AMS Gender: F Referring MD: PARISA CALLAHAN Site: [facility] Study performed: Lower extremity duplex US, (right). [...] for comparison. FINDINGS: Elevated velocities at the REGIONAL LIAISON are consistent with a severe (75-99%)stenosis. Monophasic waveforms noted distally through out the RT LE. +--------+ + RIGHT Velocity cm/s +--------+ + EIA DST 34 +--------+ + REGIONAL LIAISON DST 629 +--------+ + PFA 102 +--------+ + SFA PRX 224 +--------+ + SFA MID 72 +--------+ + SFA DST 44 +--------+ + OBDULIA PRX 53 +--------+ + OBDULIA DST 35 +--------+ + TPT 30 +--------+ + POLL CLERK DST 27 +--------+ + ISIAH DST 16 [...] theIntersocietal Accreditation Commission (IAC/Vascular),www.intersocietal.org/vascular Report generated by [employer]. Final Parisa REESE US * XR FOOT [...] URINE 15.9 mg/L 09/21/2023 11:32 PM CDT [facility] CREATININE,URIN E 0.76 g/L 09/21/2023 11:32 PM CDT [facility] ALBUMIN TO CREATININE RATIO,RAND UR 20.9 <30.0 mg/g creat 09/21/2023 11:32 PM CDT [facility] Urine URINE SPECIMEN / Unknown Non-Blood / Unknown 09/21/2023 1:46 PM CDT 09/21/2023 1:46 PM CDT Narrative [facility] - 09/21/2023 11:32 PM CDT If Albumin to Creatinine Ratio is elevated, consider the following: ? Elevations seen with incipient nephropathy associated ?? with diabetes mellitus or hypertension. Stress, exercise,hematuria, ?? and urinary tract infection may also produce elevated results. If clinically indicated, confirm with ?24 Hour Albumin to Creatinine Ratio. ?? Parisa REESE URINE [facility] [address] [place] [address], * (ABNORMAL) CBC WITH AUTO DIFFERENTIAL (09/21/2023 1:35 PM CDT) WHITE BLOOD COUNT 8.1 4.5 - 11.0 thou/cu mm 09/21/2023 2:04 PM CDT [facility] RED BLOOD COUNT 3.80(L) 4.00 - 5.20 mil/cu mm 09/21/2023 2:04 PM CDT [facility] HEMOGLOBIN 11.8(L) 12.0 - 16.0 g/dL 09/21/2023 2:04 PM CDT [facility] HEMATOCRIT 35.4 33.0 - 51.0 % 09/21/2023 2:04 PM CDT [facility] MCV 93 80 - 100 fL 09/21/2023 2:04 PM CDT [facility] MCH 31.1 26.0 - 34.0 pg 09/21/2023 2:04 PM CDT [facility] MCHC 33.3 32.0 - 36.0 g/dL 09/21/2023 2:04 PM CDT [facility] RDW 13.1 11.5 - 15.5 % 09/21/2023 2:04 PM CDT [facility] PLATELET COUNT 325 140 - 440 thou/cu mm 09/21/2023 2:04 PM CDT [facility] MPV 9.1 6.5 - 11.0 fL 09/21/2023 2:04 PM CDT [facility] Blood BLOOD SPECIMEN / Unknown Venipuncture / Unknown 09/21/2023 1:35 PM CDT 09/21/2023 1:36 PM CDT Parisa REESE HEMATOLOGY [facility] [address] [place] [address], * RED CELL MORPHOLOGY (09/21/2023 1:35 PM CDT) RBC COMMENT RBC morphology appears normal RBC morphology appears normal, RBC morphology within normal limits for newborns. 09/21/2023 2:04 PM CDT [facility] Blood BLOOD SPECIMEN / Unknown Venipuncture / Unknown 09/21/2023 1:35 PM CDT 09/21/2023 1:36 PM CDT Parisa REESE HEMATOLOGY Performing Organization Address City/[facility]/ZIP Co de Phone Number [facility] [address] [place] [address], * PLATELET ESTIMATE (09/21/2023 1:35 PM CDT) PLATELET ESTIMATE Adequate Adequate, No estimate 09/21/2023 2:04 PM CDT [facility] Blood BLOOD SPECIMEN / Unknown Venipuncture / Unknown 09/21/2023 1:35 PM CDT 09/21/2023 1:36 PM CDT Parisa REESE HEMATOLOGY Performing Organization Address City/[facility]/ZIP Co de Phone Number [facility] [address] [place] [address], * (ABNORMAL) MANUAL DIFFERENTIAL (09/21/2023 1:35 PM CDT) % NEUTROPHILS 58.0 % 09/21/2023 2:04 PM CDT [facility] % LYMPHOCYTES 24.0 % 09/21/2023 2:04 PM CDT [facility] % MONOCYTES 10.0 % 09/21/2023 2:04 PM CDT [facility] % EOSINOPHILS 8.0 % 09/21/2023 2:04 PM CDT [facility] % BASOPHILS 0.0 % 09/21/2023 2:04 PM CDT [facility] NEUTROPHILS ABSOLUTE 4.7 1.7 - 7.0 thou/cu mm 09/21/2023 2:04 PM CDT [facility] LYMPHOCYTES ABSOLUTE 1.9 0.9 - 2.9 thou/cu mm 09/21/2023 2:04 PM CDT [facility] MONOCYTES ABSOLUTE 0.8 <0.9 thou/cu mm 09/21/2023 2:04 PM CDT [facility] EOSINOPHILS ABSOLUTE 0.6(H) <0.5 thou/cu mm 09/21/2023 2:04 PM CDT [facility] BASOPHILS ABSOLUTE 0.0 <0.3 thou/cu mm 09/21/2023 2:04 PM CDT [facility] Blood BLOOD SPECIMEN / Unknown Venipuncture / Unknown 09/21/2023 1:35 PM CDT 09/21/2023 1:36 PM CDT Parisa REESE HEMATOLOGY [facility] [address] [place] [address], * (ABNORMAL) C-REACTIVE PROTEIN (09/21/2023 1:35 PM CDT) C-REACTIVE PROTEIN 1.0(H) <0.5 mg/dL 09/21/2023 10:16 PM CDT [facility] Blood BLOOD SPECIMEN / Unknown Venipuncture / Unknown 09/21/2023 1:35 PM CDT 09/21/2023 1:36 PM CDT Parisa REESE CHEMISTRY [facility] [address] [address], * (ABNORMAL) HEMOGLOBIN A1C MONITORING (POCT) (09/21/2023 1:35 PM CDT) HEMOGLOBIN A1C MONITORING (POCT) 9.8(H) <=6.4 % 09/21/2023 1:55 PM CDT [facility] Blood BLOOD SPECIMEN / Unknown Venipuncture / Unknown 09/21/2023 1:35 PM CDT 09/21/2023 1:36 PM CDT Narrative [facility] - 09/21/2023 1:55 PM CDT ? (<=6.9%) [...] Untreated Anemias, Splenectomy ? Parisa REESE CHEMISTRY [facility] [address] [place] [address], * CT CHEST WO (09/02/2023 1:50 PM SHOESHINER) Anatomical Region Laterality Modality CHEST, THORAX, HEART Computed To mography 09/02/2023 1:50 PM SHOESHINER Impressions 09/04/2023 9:08 AM SHOESHINER IMPRESSION: 1. ??Interval decreased sizes of bilateral [...] of esophagitis. ? Narrative 09/04/2023 9:08 AM SHOESHINER EXAM: CT CHEST wo CONTRAST LOCATION: [facility] DATE: 09/02/2023 INDICATION: Other nonspecific abnormal finding [...] 09/04/2023 EXAM: CT CHEST wo CONTRAST LOCATION: [facility] DATE: 09/02/2023 INDICATION: Other nonspecific abnormal finding [...] SPINE THORACIC 2 VIEWS (07/27/2023 10:59 AM SHOESHINER) Anatomical Region Laterality Modality Spine, THORACIC SPINE Computed R adiography 07/27/2023 10:5 9 AM SHOESHINER Impressions 07/27/2023 6:05 PM SHOESHINER History of T1 compression reviewed on prior [...] process overall noted. Narrative 07/27/2023 6:05 PM SHOESHINER For Patients: As a result of the Cures Act, medical imaging exams and procedure reports are released immediately into your electronic medical record. You may view this report before your referring provider. If you have questions, please contact your health care provider. EXAM: XR SPINE CERVICAL 3 VIEWS, XR SPINE THORACIC 2 VIEWS LOCATION: [facility] DATE: 07/27/2023 INDICATION: Unspecified Fracture [...] VIEWS, XR SPINE THORACIC 2 VIEWS LOCATION: [facility] DATE: 07/27/2023 INDICATION: Unspecified Fracture [...] SPINE CERVICAL 3 VIEWS (07/27/2023 10:58 AM SHOESHINER) Anatomical Region Laterality Modality CERVICAL SPINE Computed Radiogr aphy 07/27/2023 10:5 8 AM SHOESHINER Impressions 07/27/2023 6:05 PM SHOESHINER History of T1 compression reviewed on prior [...] process overall noted. Narrative 07/27/2023 6:05 PM SHOESHINER For Patients: As a result of the Cures Act, medical imaging exams and procedure reports are released immediately into your electronic medical record. You may view this report before your referring provider. If you have questions, please contact your health care provider. EXAM: XR SPINE CERVICAL 3 VIEWS, XR SPINE THORACIC 2 VIEWS LOCATION: [facility] DATE: 07/27/2023 INDICATION: Unspecified Fracture [...] VIEWS, XR SPINE THORACIC 2 VIEWS LOCATION: [facility] DATE: 07/27/2023 INDICATION: Unspecified Fracture [...] care provider. XR MAMMO CASSIE BILAT SCREEN [[id number]] CLINICAL HISTORY: ??This is an asymptomatic 66 y.o. patient. INDICATION FOR EXAM: Mammogram Screening. TECHNIQUE: CC & MLO views were obtained. ??This study was evaluated with the assistance of Computer-Aided Detection. Breast Tomosynthesis was used in interpretation. COMPARISON FILM: Yes 01/23/17 [facility] 09/10/10 [facility] FINDINGS: ??The breasts are extremely dense, which [...] Alendronate (Fosamax) medication treatment. Destiny Medellin PA-C [facility] 11/15/2021 Narrative 11/15/2021 8:42 AM CDT For Patients: Results are automatically released to your [facility] ([employer]) account once available, in compliance with federal regulations. This means that you may see your results before your provider has had a chance to review them. Please allow 2-3 business days for your provider to comment on the results. XR DXA Bone Mineral Density (BMD) EXAM LOCATION: [address] [address] PATIENT NAME: Marco A Joens DATE OF : 1955 EXAM DATE: 11/09/2021 [...] two scanners are made by the same bobbin cleaner hand. PROCEDURE: Dual-energy x-ray absorptiometry performed with routine [...] - 199 mg/dL 11/02/2021 11:38 PM CDT [facility] TRIGLYCERIDES 91 <150 mg/dL 11/02/2021 11:38 PM CDT [facility] HDL CHOLESTEROL 45 >40 mg/dL 11:38 PM CDT [facility] NON-HDL CHOLESTEROL 76 <145 mg/dl 11/02/2021 11:38 PM CDT [facility] CHOL/HDL RATIO 2.69 <4.50 11/02/2021 11:38 PM CDT [facility] LDL CHOLESTEROL 58 <=130 mg/dL 11/02/2021 11:38 PM CDT [facility] VLDL CHOLESTEROL 18 <=30 mg/dL 11/02/2021 11:38 PM CDT [facility] PROVIDER ORDERED STATUS RANDOM 11/02/2021 11:38 PM CDT [facility] Blood BLOOD SPECIMEN / Unknown Venipuncture / Unknown 11/02/2021 1:10 PM CDT 11/02/2021 1:10 PM CDT David Sparks MD CHEMISTRY [facility] [address] [place] [address], * OCCULT BLOOD IFOBT STOOL (11/29/2018 3:36 PM CDT) STOOL BLOOD ,IFOBT Negative Negative 12/07/2018 9:42 AM CDT [facility] Stool STOOL SPECIMEN / Unknown Non-Blood / Unknown 11/29/2018 3:36 PM CDT 12/06/2018 3:36 PM CDT David Sparks MD LABORATORY [facility] [address] [place] [address], * ANTI HCV (01/04/2010 1:58 PM CDT) ANTI HCV Non-reacti ve [facility] Blood specimen (specimen) BLOOD SPECIMEN / Unknown 01/04/2010 1:58 PM CDT 01/04/2010 1:46 PM CDT David Sparks MD SEND OUTS [facility] INTERNAL ZIP [id number] [place] [phone] from Last 3 Months or Most Recently [...] 3:51 PM 02/06/2019 3:14 PM Care Teams Caster Helper Relationship Specialty Start Date End Date Parisa Callahan PA [address] [place] [address] PCP - General Physician Vice President Sales And Marketing 05/16/23 [place] [id number] [address] 02/04/23 Raegan Dumont COTA [address] [place] [address] Occupational Therapy 05/05/23
--- OUTSIDE RECORDS SUMMARY | 2023-10-10 17:44 | XMS_ITS | Encounter Summary ---
Author Name Unknown Organization [facility] Address [address] [place] [address] Care Team Providers Care Writing Center Director Name Role Phone Elsewhere, Pcp Primary Care Provider Unavailabl e Reason for Visit * Physical Therapy (Routine) - Authorized Specialty Diagnoses / Procedures Referred By Kashmir t Referred To Contact Diagnoses Debility Procedures PT Ongoing treatment Neno Call M.D. [address] [place] [address] [facility] Region Referral ID Status Reason Start Date Expiration Date V isits Requested Visits Authorized [id number] Authorized 08/16/2023 07/02/2024 40 40 Encounter Details Date Type Department Care Team (Late st Contact Info) Description 09/08/2023 1:15 PM SPORTS BETTING MANAGER Clinical Support Department of Rehabilitation Services in [address] [phone] Neno Call M.D. [address] [place] [address] Felipe Saravia P.T. [address] [place] [phone] Debility Social History Tobacco Use Types Packs/Day [...] Call M.D. Visit Diagnosis: 1. Debility Payor: [facility] / Plan: [employer] PPO [...] 09/29/23 PT Goal #2: Patient will demonstrate pvz-bx-wvkdc x5 in 11 seconds. PT Goal #2 [...] min Total Treatment Time (min): 45 min TS BETTING MANAGER documented in this encounter Plan of Treatment Not on file documented as of this encounter Visit Diagnoses Diagnosis Debility documented in this encounter Care Teams Writing Center Director Relationship Specialty Start Date End Date Elsewhere, Pcp PCP - General Family Medicine 03/11/21 documented as of this encounter
--- OUTSIDE RECORDS SUMMARY | 2023-10-10 17:44 | XMS_ITS | Encounter Summary ---
Author Name Unknown Organization [facility] Address [address] [place] [address] Care Team Providers Care High School Band Teacher Name Role Phone Elsewhere, Pcp Primary Care Provider Unavailabl e Reason for Visit * Physical Therapy (Routine) - Authorized Specialty Diagnoses / Procedures Referred By Kashmir t Referred To Contact Diagnoses Debility Procedures PT Ongoing treatment Neno Call M.D. [address] [place] [address] [facility] Region Referral ID Status Reason Start Date Expiration Date V isits Requested Visits Authorized [id number] Authorized 08/16/2023 07/02/2024 40 40 Encounter Details Date Type Department Care Team (Late st Contact Info) Description 08/21/2023 1:45 PM TECHNICAL SUPPORT PROFESSIONAL Clinical Support Department of Rehabilitation Services in [address] [phone] Neno Call M.D. [address] [place] [address] Felipe Saravia P.T. [address] [place] [phone] Debility Social History Tobacco Use Types Packs/Day [...] 09/29/23 PT Goal #2: Patient will demonstrate zkm-te-dalia x5 in 11 seconds. PT Goal #2 [...] min Total Treatment Time (min): 45 min NICAL SUPPORT PROFESSIONAL documented in this encounter Plan of Treatment Not on file documented as of this encounter Visit Diagnoses Diagnosis Debility documented in this encounter Care Teams High School Band Teacher Relationship Specialty Start Date End Date Elsewhere, Pcp PCP - General Family Medicine 03/11/21 documented as of this encounter
--- OUTSIDE RECORDS SUMMARY | 2023-10-10 17:44 | XMS_ITS | Referral Summary ---
Author Name Unknown Organization [facility] Address [address] [place] [address] Care Team Providers Care Micropaleontologist Name Role Phone Elsewhere, Pcp Primary Care Provider Unavailabl e Source Comments Patient records contain information from all sites at [facility]. For routine questions regarding patient records, call [phone] during business hours, M-F 8:00 AM - 5:00 PM Central Time. Record requests for emergency care only can be directed to [phone] at any time.[facility] Encounters Date Type Department Care Team Description 09/18/2023 Clinical Communication Department of Rehabilitation Services in [address] [phone] Felipe Saravia, P.T. 09/18/2023 1:45 PM CDT Clinical Support Department of Rehabilitation Services in [address] [phone] Neno Call M.D. Beissel, Curtis J, P.T. Debility 09/13/2023 9:13 PM CDT - 09/13/2023 9:47 PM CDT Emergency [place] [facility] [address] [place] [phone] Serafin Davidson P.A.-C. Pain Foot Right (Primary Dx) Discharge Disposition: Home or Self Care 09/08/2023 1:15 PM RECEPTIONIST TELEPHONE OPERATOR Clinical Support Department of Rehabilitation Services in [address] [phone] Neno Call M.D. Beissel, Curtis J P.T. Debility 08/28/2023 1:45 PM RECEPTIONIST TELEPHONE OPERATOR Clinical Support Department of Rehabilitation Services in [address] [phone] Neno Call M.D. Beissel, Curtis J P.T. Debility 08/21/2023 1:45 PM RECEPTIONIST TELEPHONE OPERATOR Clinical Support Department of Rehabilitation Services in [address] [phone] Neno Call M.D. Beissel, Curtis J, P.T. Debility 08/16/2023 2:15 PM RECEPTIONIST TELEPHONE OPERATOR Comprehensive Visit Department of Rehabilitation Services in [address] [phone] Parisa Byrd P.A.-C. Fogarty, Jennifer L P.TTam Debility (Primary Dx) 08/07/2023 Clinical Communication Department of Family Medicine, [facility], in [address] [phone] Elsewhere, Pcp from Last 3 Months Allergies [...] Diagnosed Date Atherosclerotic Heart Diseas e Of [place] Coronary Artery Without Angina Pectoris 09/15/2022 Depression Major Recurrent 08/03/2021 Fracture Radius Colles Closed Initial Right 05/03 Overview: Added automatically from request for surgery [id number] Osteoporosis 01/23/2018 Hypertension NOS Diabetes Mellitus Type [...] on file Medical Devices Implanted Type Area Utility Maintenance Worker Device Identifier Shelf Expiration Date Model / Serial / Lot Plt Wrst Dvr Rt 3h 24.4x51.3 - [id number] Implanted:Qty : 1 on 05/26/2021 by Jorden Tineo M.D. at [facility] Hardware e.g. pins/screws/ rods [employer] [id number] / / 07.05.20. [address] S[address] Sngl 1.6x127 - [id number] Implanted:Qty : 1 on 05/26/2021 by Jorden Tineo M.D. at [facility] Hardware e.g. pins/screws/ rods [employer] [id number] / 07.05.20. 319 Scrw Dvr Fthrd 3.5x12 - [id number] Implanted:Qty : 2 on 05/26/2021 by Jorden Tineo M.D. at [facility] Hardware e.g. pins/screws/ rods [employer] [id number] / / 07.05.20. 319 Peg Fix Dvr Pthrd Lng 2.5x22 - [id number] Implanted:Qty : 3 on 05/26/2021 by Jorden Tineo M.D. at [facility] Hardware e.g. pins/screws/ rods Right: Wrist [employer] [id number] / / 07.05.20. 319 Peg Fix Dvr Pthrd Lng 2.5x16 - [id number] Implanted:Qty : 1 on 05/26/2021 by Jorden Tineo M.D. at [facility] Hardware e.g. pins/screws/ rods Right: Wrist [employer] [id number] / / 07.05.20. 319 Peg Fix Dvr Smth Lng 2.0x18 - [id number] Implanted:Qty : 3 on 05/26/2021 by Jorden Tineo M.D. at [facility] Hardware e.g. pins/screws/ rods Right: Wrist [employer] [id number] / 07.05.20. 319 Scrw Dvr Fthrd 3.5x13 - [id number] Implanted:Qty : 1 on 05/26/2021 by Jorden Tineo M.D. at [facility] Hardware e.g. pins/screws/ rods [employer] [id number] / 07.05.20. 319 Care Teams Micropaleontologist Relationship Specialty Start Date End Date Elsewhere, Pcp PCP - General Family Medicine 03/11/21
--- OUTSIDE RECORDS SUMMARY | 2023-10-10 17:44 | XMS_ITS ---
Author Name Unknown Organization [facility] Address [address] [place] [address] Care Team Providers Care Adding Machine Mechanic Name Role Phone Unavailable Unavailable Unavailable Surgery Details Not on file Complications Check Surgery Details section. Procedure Estimated Blood Loss Check Surgery Details section. Procedure Findings Check Surgery Details section. Procedure Specimens Taken Check Surgery Details section.
--- OUTSIDE RECORDS SUMMARY | 2023-10-10 17:45 | XMS_ITS | Encounter Summary ---
Author Name Unknown Organization [facility] Address [address] [place] [address] Care Team Providers Care Admissions Coordinator Name Role Phone Elsewhere, Pcp Primary Care Provider Unavailabl e Reason for Referral * Physical Therapy (Routine) - Authorized Specialty Diagnoses / Procedures Referred By Kashmir sanchez Referred To Contact Diagnoses Debility Procedures PT Ongoing treatment Neno Call M.D. [address] [place] [address] [facility] Referral ID Status Reason Start Date Expiration Date V isits Requested Visits Authorized [id number] Authorized 08/16/2023 07/02/2024 40 40 EDITOR Reason for Visit * Appointment Request (Routine) - Closed Specialty Diagnoses / Procedures Referred By Kashmir sanchez Referred To Contact Physical Therapy Diagnoses Pain Ankle Left Pain Chronic Due To Trauma Neno Call M.D. [address] [place] [address] Referral ID Status Reason Start Date Expiration Date Visits Re quested Visits Authorized [id number] Closed 03/15/2023 03/14/2024 1 1 Encounter Details Date Type Department Care Team (Latest Contact Info) Description 08/16/2023 2:15 PM FOOD EDITOR Comprehensive Visit Department of Rehabilitation Services in [address] [phone] Parisa Byrd P.A.-C. [address] [place] [phone] Parisa Byrd PTamTTam [phone] [phone] Debility (Primary Dx) Social History [...] Major Recurrent (HCC) Atherosclerotic Heart Disease Of [place] Coronary Artery Without Angina Pectoris Past Surgical History: Procedure Laterality Date CATARACT EXTRACTION AND INSERTION OF INTRAOCULAR LENS N/A 05/31/2012 Cataract extraction and insertion of intraocular lens CATARACT EXTRACTION AND INSERTION OF INTRAOCULAR LENS N/A 06/14/2012 Cataract extraction and insertion of intraocular lens OPEN REDUCTION INTERNAL FIXATION WRIST Right 05/26/2021 Procedure: OPEN REDUCTION INTERNAL FIXATION WRIST-Right; Surgeon: Jorden Tineo M.D.; Location: [facility] OR Patient presents to outpatient physical therapy [...] adduction. 3/5 right quadriceps, hamstrings and dorsiflexors. Hcu-fr-kuqbj x5 15 seconds. Tug test 26 seconds [...] 09/29/23 PT Goal #2: Patient will demonstrate xfh-na-dhptf x5 in 11 seconds. PT Goal #2 [...] Tracking Total Treatment Time (min): 40 min EDITOR documented in this encounter Plan of Treatment Not on file documented as of this encounter Visit Diagnoses Diagnosis Debility- Primary documented in this encounter Care Teams Admissions Coordinator Relationship Specialty Start Date End Date Elsewhere, Pcp PCP - General Family Medicine 03/11/21 documented as of this encounter
--- OUTSIDE RECORDS SUMMARY | 2023-10-10 17:45 | XMS_ITS | Encounter Summary ---
Author Name Unknown Organization [facility] Address [address] [place] [address] Care Team Providers Care Vocational Counselor Name Role Phone Elsewhere, Pcp Primary Care Provider Unavailabl e Encounter Details Date Type Department Care Team (Late st Contact Info) Description 08/07/2023 Clinical Communication Department of Family Medicine, [facility], in [address] [phone] Elsewhere, Pcp Social History Tobacco Use Types [...] on filedocumented in this encounter Care Teams Vocational Counselor Relationship Specialty Start Date End Date Elsewhere, Pcp PCP - General Family Medicine 03/11/21 documented as of this encounter
[2023-10-10 17:47] LABS: Slide Review Reflex No
[2023-10-10 18:02] VITALS: BP 129/79; PULSE 58; O2SAT 99
[2023-10-10 18:03] VITALS: PULSE 57; O2SAT 100
[2023-10-10 18:03] LABS: Albumin* 4.2 g/dL (3.3-5.0)
[2023-10-10 18:04] LABS: Chloride* 96 mmol/L (96-114); Potassium* 3.9 mmol/L (3.6-5.1); Sodium* 134 mmol/L (135-149)
[2023-10-10 18:06] LABS: Alkaline Phosphatase* 195 U/L (40-150); Anion Gap 3 mEq/L (7-15); Aspartate Amino Transferase* 59 U/L (12-35); Bilirubin Direct* 0.1 mg/dL (0.0-0.5); Bilirubin Total* 0.4 mg/dL (0.1-1.5); Blood Urea Nitrogen* 14 mg/dL (7-30); Carbon Dioxide* 35 mmol/L (20-32); Creatinine* 0.8 mg/dL (0.5-1.5); Est. Creatinine Clearance* 41.05; Estimated Glomerular Filt Rate 81 ml/min; Total Protein* 7.8 g/dL (6.0-8.3)
[2023-10-10 18:07] LABS: Alanine Aminotransferase* 41 U/L (4-35); Calcium* 9.2 mg/dL (8.4-10.6); Magnesium* 2.4 mg/dL (1.5-2.6)
[2023-10-10 18:09] LABS: Ethanol* < 0.01 % (0.01-0.03); Glucose* 40 mg/dL (60-115)
[2023-10-10 18:10] LABS: Ammonia* < 9.0 umol/L (13.1-30.0)
[2023-10-10 18:15] VITALS: PULSE 55; O2SAT 100
[2023-10-10 18:30] VITALS: PULSE 58; O2SAT 100
[2023-10-10 18:32] VITALS: BP 148/64
[2023-10-10 18:56] LABS: PCR FLU A Negative PCR FLU A (Negative); PCR FLU B Negative PCR FLU B (Negative); PCR RSV Negative PCR RSV (Negative); SARS PCR* Negative SARS-CoV-2 (Negative)
[2023-10-10 19:07] LABS: Appearance Urine Clear (Clear); Bilirubin Urine Negative (Negative); Blood Urine Trace-intact (Negative); Color Urine Yellow (Yellow); Glucose Urine Trace (Negative); Ketones Urine Negative (Negative); Leukocyte Esterase Urine Negative (Negative); Nitrite Urine Negative (Negative); Protein Urine Negative (Negative); Specific Gravity Urine 1.015 (1.000-1.030); Urobilinogen Urine 0.2 (0.2-1.0); pH Urine 7.5 (5.0-8.5)
[2023-10-10 19:37] LABS: Glucose, Point-of-Care* 252 mg/dl (60-115)
[2023-10-10 20:10] LABS: Amphetamine Screen Urine Negative (Negative); Barbiturate Screen Urine Negative (Negative); Benzodiazepines Screen Urine Negative (Negative); Cannabinoid Screen Urine Negative (Negative); Cocaine Screen Urine POSITIVE (Negative); Methadone Screen Urine Negative (Negative); Methamphetamines Screen Urine Negative (Negative); Opiate Screen Urine POSITIVE (Negative); Oxycodone Screen Urine Negative (Negative); Phencyclidine Screen Urine Negative (Negative); Tricyclic Antidepressant Urine Negative (Negative)
[2023-10-10 20:26] LABS: RBC Urine 0-2 (0-2)
[2023-10-12 18:54] LABS: Keppra (Levetiracetam) 48 ug/mL (10-40)
[2023-10-13 22:50] LABS: Lacosamide 7.4 ug/mL (1.0-10.0)
== END 2023-10-10 19:30 | disposition home or self-care (01) ==
PROVIDERS: Emergency Provider Family Medicine; PCP Physician Assistant
DX: E11.649 Type 2 diabetes mellitus with hypoglycemia without coma (principal); R55 Syncope and collapse; G40.909 Epilepsy, unspecified, not intractable, without status epilepticus
CPT/HCPCS: 36415; 71045; 80048; 80076; 80177; 80235; 80306; 81001; 82077; 82140; 82947; 82962; 83735; 84484; 85025; 87631; 93005; 99284; 99285

== ENCOUNTER 2023-12-14 07:54 | Outpatient (CLI) | payer MEDICARE, SELFPAY ==
--- OUTSIDE RECORDS SUMMARY | 2023-12-14 07:56 | XMS_ITS | Patient Health Record ---
Author Organization [facility] [place] Address [address] [facility] [address] [place] [address] Care Team Providers Care Reading Teacher Name Role Phone David Sparks MD Primary Care Provider Yasmeen Ferrer Unavailable [phone] ALLERGIES Allergen (clinical drug ingredient) Drug/Non Drug [...] NOT LIE DOWN FOR 1 HOUR Active SOCIAL HISTORY Tobacco Use: Social History Observation Description Date Details (start date - stop date) Current Smoker NA - NA Sex Assigned At : Social History Observation Description Sex Assigned At Unknown Tobacco Use Question Answer Notes Are you a: current smoker PROBLEMS Problem Type ICD Code Onset Dates Problem Status W/U Status Risk SNOMED Code Notes Problem Epilepsy, unspecified, not intractable, without status epilepticus (G40.909) Active confirmed Epilepsy (79215798) Problem 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, not intractable, without status epilepticus (G40.009) Active confirmed Localization- related epilepsy (058620296) Encounters Encounter Location Date Provider Diagnosis [facility] [address] [facility] [address] [place] [address] 01/31/2023 Yasmeen Jacobs PLAN OF TREATMENT No Information Insurance Providers Payer Name Payer Address Payer Phone Subscriber Number Group Number Insured Name Patient Relationship to Insured Coverage Start Date Coverage End Date [facility] [id number] [address] [address] [place], [place] [id number] Bella Jones Self - patient is the insured MEDICAL (GENERAL) HISTORY Medical History History ICD Code Essential hypertension Osteoporosis Tobacco use disorder Type I diabetes mellitus Contracture of palmar fascia Coronary atherosclerosis of unspecified type of vessel, [place] or graft Depressive disorder Hyposmolality and/or hyponatremia Pure hypercholesterolemia Reflux esophagitis Surgical History Surgery Date(Month/Year) Appendectomy Cholecystectomy Tubal ligation Spine surgery Trigger finger release Conization cervix Hospitalization History Reason Date(Month/Year) Seizure related hospitalizations: [facility], 02/03/2019 - 02/06/2019
--- OUTSIDE RECORDS SUMMARY | 2023-12-14 07:56 | XMS_ITS | Clinical Summary ---
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 Role Phone [facility] Mauri Bazzi Unavailable Raegan Dumont Unavailable [phone] Parisa Callahan Primary Care Provider [phone] Allergies Active Allergy Reactions Criticality Noted Date Comments Aspirin, Buffered Ecchymosis 01/18/2007 Phenytoin 01/18/2007 gingival hyperplasia Hydrochlorothiazide 01/18/2007 low sodium Carbamazepine 01/18/2007 Medications Medication Sig Dispensed Refills Start Date End Date Status nitroglycerin (NITROSTAT) 0.4 mg sublingual tabletIndications: ASCVD (arteriosclerotic cardiovascular disease) Place 1 Tablet (0.4 mg) under the tongue every 5 minutes if needed for Chest Pain. Maximum of 3 doses, call 911 if no relief after second dose. 25 Tablet 1 01/05/20 23 Active acetaminophen (TYLENOL) 325 mg tabletIndications: Pain Take 2 Tablets (650 mg) by mouth every 6 hours if needed for Pain. Max acetaminophen dose: 4000mg in 24 hrs. 0 05/01/20 23 Active aspirin (ECOTRIN) 81 mg enteric coated tabletIndications: Preventative health care Take 1 Tablet (81 mg) by mouth once daily with a meal. 0 05/01/20 23 Active insulin regular (NOVOLIN-R; HUMULIN-R) 100 unit/mL injection Per Sliding Scale If Blood Sugar is less than 70, call MD. If Blood Sugar is 200 to 249, give 1 Units. If Blood Sugar is 250 to 299, give 2 Units. If Blood Sugar is 300 to 349, give 3 Units. If Blood Sugar is 350 to 399, give 4 Units. If Blood Sugar is greater than 399, give 5 Units. If Blood Sugar is greater than 400, call MD 05/02/20 23 Active LORazepam (ATIVAN) 0.5 mg tabIndications:Anx iety Take 1 Tablet (0.5 mg) by mouth every 6 hours if needed for Anxiety. 20 Tablet 05/12/20 23 Active alendronate (FOSAMAX) 70 mg tabletIndications: Age-related osteoporosis with current pathological fracture with routine healing, subsequent encounter Take 1 Tablet (70 mg) by mouth once a week in the morning. Take on empty stomach with full glass of water. Do not lie down for 1 hr. 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 90 Tablet 2 07/07/19 24 Active tiotropium bromide (Spiriva Respimat) 2.5 mcg/actuation mist for inhalationIndicati ons:COPD, moderate (HC) Inhale 2 Puffs by mouth once daily. 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 180 Tablet 1 10/23/19 24 Active levETIRAcetam (KEPPRA) 750 mg tabletIndications: Nonintractable epilepsy without status epilepticus, unspecified epilepsy type (HC),Seizure disorder (HC) Take 1 Tablet (750 mg) by mouth two times daily. 180 Tablet 1 10/23/19 24 Active albuterol HFA (PRO-AIR; VENTOLIN; PROVENTIL) 90 mcg/actuation inhalerIndications :COPD mixed type (HC) Inhale 1-2 Puffs by mouth every 4 hours if needed for Shortness Of Breath or Wheezing. 10/23/19 24 Active multivitamins-mine rals-lutein (Multivitamin 50 Plus) tab tablet Take 1 Tablet by mouth once daily. Active FreeStyle Twyla 14 Day SensorIndications: Type 1 diabetes mellitus without complication (HC) CHANGE SENSOR EVERY 14 DAYS 8 Each 2 10/31/19 24 Active clopidogreL (PLAVIX) 75 mg tabletIndications: ASCVD (arteriosclerotic cardiovascular disease) TAKE 1 TABLET BY MOUTH ONCE DAILY . TAKE 1 YEAR UNINTERRUPTED. DO NOT STOP UNLESS DIRECTED BY CARDIOLOGY 100 Tablet 2 11/15/19 24 Active medication order composerIndication s:Poor weight gain in adult Medline Gelatein 20 High protein gelatin- 4 fluid ounce cups-Eat 1 serving (4 oz) daily. 90 unit 3 11/23/19 24 Active HYDROcodone-acetam inophen (5-325 mg/tablet)Indicati ons:Post-op pain Take 1 Tablet by mouth 3 times daily if needed for Pain (For moderate to severe pain.). 20 Tablet 11/21/19 24 Active metoprolol succinate (TOPROL XL) 100 mg Sustained-Release tabletIndications: Hypertension, unspecified type,Coronary artery disease, unspecified vessel or lesion type, unspecified whether angina present, unspecified whether chenega or transplanted heart,Cardiomyopat hy, unspecified type (HC) TAKE 1 AND 1/2 TABLETS BY MOUTH ONCE DAILY 135 Tablet 3 11/23/19 24 Active clopidogreL (PLAVIX) 75 mg tabletIndications: ASCVD (arteriosclerotic cardiovascular disease) Take 1 Tablet (75 mg) by mouth once daily. Take one year uninterrupted. Do not stop unless directed by Cardiology. 30 Tablet 05/12/20 23 024 Discontinued medication order composerIndication s:Poor weight gain in adult Medline Gelatein 20 High protein gelatin- 4 fluid ounce cups-Eat 1 serving (4 oz) daily. 90 unit 3 05/16/20 23 024 Discontinued(Re order (E-cancel not sent)) metoprolol succinate (TOPROL XL) 100 mg Sustained-Release tabletIndications: Hypertension, unspecified type,Coronary artery disease, unspecified vessel or lesion type, unspecified whether angina present, unspecified whether chenega or transplanted heart,Cardiomyopat hy, unspecified type (HC) Take 1.5 Tablets (150 mg) by mouth once daily. Additional refills require cardiology appt. Please call [phone] to schedule 135 Tablet 08/22/19 24 024 Discontinued HYDROcodone-acetam inophen (5-325 mg/tablet)Indicati ons:Post-op pain Take 1 to 2 Tablets by mouth 4 times daily if needed for Pain (For moderate to severe pain.). Max acetaminophen dose: 4000 mg in 24 hrs. 15 Tablet 10/26/19 24 024 Discontinued(Re order (E-cancel not sent)) medication order composerIndication s:Poor weight gain in adult Medline Gelatein 20 High protein gelatin- 4 fluid ounce cups-Eat 1 serving (4 oz) daily. 90 unit 3 11/20/19 24 024 Discontinued(Re order (E-cancel not sent)) clindamycin (CLEOCIN) 300 mg capsuleIndications :Cellulitis of left lower leg Take 1 Capsule (300 mg) by mouth three times daily for 7 days. 21 Capsule 11/20/19 24 024 Active Problems Problem Noted Date Diagnosed Date Peripheral arterial disease 10/23/2023 Type 1 diabetes 05/02/2023 Closed fracture of first thoracic vertebra 04/24 Peripheral vertigo 02/02/2023 Recurrent falls 02/02/2023 ASCVD (arteriosclerotic cardiovascular disease) 01/04/2023 Overview: S/P RCA drug eluting stent 01/04/23 Osteoporosis 01/23/2018 Unspecified essential hypertension Unspecified epilepsy without mention of intractable epilepsy Tobacco use disorder Resolved Problems Problem Noted Date Diagnosed Date Resolved Date Toxic encephalopathy 05/02/2023 024 Community acquired pneumonia 05/02/2023 09/23/2023 Pleural effusion 05/02/2023 09/23/2023 Acute respiratory failure 04/23/2023 Dizziness 02/02/2023 09/23/2023 Atherosclerotic heart diseas e of chenega coronary artery without angina pectoris 09/15/2022 09/23/2023 Protein-calorie malnutrition 08/03/2021 09/23/2023 Osteomyelitis of great toe of right foot 08/03/2021 09/23/2023 Depression, recurrent 08/03/20212023 DIABETES 05/24/2002 09/23/2023 Encounters Date Type Department Care Team Description 12/05/2023 1:45 PM CDT Ancillary Procedure [facility] [address] [place] [address] 12/05/2023 12:50 PM CDT Office Visit [facility] [address] [place] [address] Parisa Callahan PA Follow Up (Wound on left leg) 12/04/2023 3:00 PM CDT Office Visit [facility] [address] [place] [address] Bandar Lomeli MD CV Vascular Est (1 month Follow up: s/p Right femoral endarterectomy with bovine patch 10/24/2023. US SHANE & aorta prior to OV) 12/04/2023 12:12 PM CDT - 12/04/2023 11:59 PM CDT Hospital Encounter [facility] [address] [place] [address] Linsey Andrew MD Cardiomyopathy, unspecified type (HC); Chronic chest pain with high risk for CAD; Claudication of both lower extremities (HC); PVD (peripheral vascular disease) with claudication (HC) 12/04/2023 Travel 11/30/2023 Telephone [facility] [address] [place] [address] Parisa Callahan PA FOLLOW UP (SORE ) 11/22/2023 Refill [facility] [address] [place] [address] Linsey Andrew MD Refill Request (Metoprolol Succinate) 11/21/2023 Refill [facility] [address] [place] [address] Parisa Callahan PA Refill Request (HYDROcodone-acetamin ophen (5-325 mg/tablet)/) 11/20/2023 1:10 PM CDT Office Visit [facility] [address] [place] [address] Praisa Callahan PA Follow Up (Recheck wound and foot) 11/20/2023 Telephone [facility] [address] [place] [address] Parisa Callahan PA Medication Management (Medline Gelatein 20 High protein gelatin- 4 fluid ounce cups-Eat 1 serving (4 oz) daily. /) 11/20/2023 Travel 11/14/2023 Refill [facility] [address] [place] [phone] Dov Willard MD Refill Request (Clopidogrel) 11/09/2023 1:30 PM CDT Office Visit [facility] [address] [facility] [address] [place] [address] Linsey Andrew MD Follow Up (F/u visit. Recent ER visit for R leg swelling./Pt reports feeling ok. /Discuss leg swelling in pain) 11/09/2023 Travel 10/31/2023 Telephone [facility] [address] [place] [address] Parisa Callahan PA Questions; Concerns 10/31/2023 Nurse Triage [facility] [address] [place] [address] Parisa Callahan PA Post-op 10/30/2023 10:30 AM CDT Office Visit [facility] [address] [place] [address] Parisa Callahan PA Hospital F/U (VASCULAR SURGERY) 10/30/2023 Refill [facility] [address] [place] [address] Parisa Callahan PA Refill Request (Freestyle Twyla 14 Day Sensor) 10/30/2023 Travel 10/27/2023 Patient Outreach [facility] [address] [place] [address] Jacki Hernandez, RN Hospital F/U (LACE 59); Primary RN Care Management 10/24/2023 7:57 AM CDT Anesthesia Event [facility] [address] [place] [address] Caryn Justin MD Hare, Kelly J., KILN OPERATOR HELPER Student 10/24/2023 7:45 AM CDT - 10/24/2023 11:01 AM CDT Surgery [facility] [address] [place] [address] Bandar Lomeli MD DIAGNOSTIC ANGIOGRAM. 10/24/2023 6:04 AM CDT - 10/26/2023 2:41 PM CDT Hospital Encounter [facility] [address] [place] [address] Bandar Lomeli MD Post-op pain (Primary Dx) Discharge Disposition: Home Self Care 10/23/2023 8:50 AM CDT Preop Visit [facility] [address] [place] [address] Parisa Callahan PA Preoperative Exam (Umm-Dr. Lomeli-10/24/23-vas cular surgery) 10/23/2023 Travel 10/18/2023 1:00 PM CDT Ancillary Procedure [facility] [address] [place] [address] 10/17/2023 3:15 PM CDT Office Visit [facility] [address] [place] [address] Huey Bal DPM Follow Up (Bilateral foot pain) 10/17/2023 Travel 10/17/2023 Refill [facility] [address] [place] [address] Parisa Callahan PA Refill Request (Gabapentin 600mg tablets) 10/17/2023 Refill [facility] [address] [place] [address] Naina Turcios MD Refill Request (Lacosamide) 10/11/2023 Telephone [facility] [address] [place] [address] Bandar Lomeli MD Surgery Scheduled 10/11/2023 Refill [facility] [address] [place] [id number] Dov Willard MD Refill Request (Atorvastatin) 10/10/2023 Orders Only [facility] Scanner 1 scan: (1-Ord) [place], CHEST 1 VIEW PORTABLE, 10/10/2023 10/10/2023 Refill [facility] [address] [place] [address] Lakisha Mcclure MD Refill Request 10/10/2023 Telephone [facility] [address] [place] [address] Bandar Lomeli MD 10/09/2023 3:30 PM CDT Ancillary Procedure [facility] [address] [place] [address] 10/09/2023 3:15 PM CDT Orders Only [facility] [address] [place] [address] Lab, [facility] 10/09/2023 1:00 PM CDT Office Visit [facility] [address] [place] [address] Bandar Lomeli MD CV Vascular New ([place] Consult; lower extremity PAD. Referred by HUGH Oseguera, all records in EPIC. CTA not needed per Dr. Lomeli, U/Ss available in [facility]) 10/09/2023 Travel 10/04/2023 Telephone [facility] [address] [place] [address] Bandar Lomeli MD Referral 09/29/2023 Telephone [facility] [address] [place] [address] Edson Price MD Referral 09/28/2023 Orders Only [facility] [address] [place] [address] Fannie Rubin PA <No scans attached> 09/28/2023 Telephone [facility] [address] [place] [address] Parisa Callahan PA Results 09/28/2023 Orders Only [facility] [address] [place] [address] Parisa Callahan PA <No scans attached> 09/27/2023 7:06 AM CDT - 09/27/2023 11:59 PM CDT Hospital Encounter [facility] [address] [facility] [address] [place] [address] Parisa Callahan PA Claudication of both lower extremities (HC) 09/27/2023 Travel 09/21/2023 2:00 PM CDT Ancillary Procedure [facility] [address] [place] [address] 09/21/2023 1:45 PM CDT Ancillary Procedure [facility] [address] [place] [address] 09/21/2023 1:30 PM CDT Ancillary Procedure [facility] [address] [place] [address] 09/21/2023 12:50 PM CDT Office Visit [facility] [address] [place] [address] Parisa Callahan PA Foot Pain/problem (Bilateral foot pain-so bad she can't sleep); Shoulder Pain/problem (Fell a week ago and hurt right shoulder) 09/21/2023 Travel 09/20/2023 Refill [facility] [address] [place] [address] Parisa Callahan PA Refill Request (Humulin R Regular U-100 Insuln) from Last 3 Months Immunizations Name Administration Dates Next Due COVID-19 vaccine ([employer] 30mcg/0.3mL) 12YO+ BIVALENT PF, MDV 04/07/2022 COVID-19 vaccine ([employer] 30mcg/0.3mL) PF, MDV 10/12/2020,09/21/2020 Influenza Virus, [...] History Relation Name Comments Heart Disease Brother Frnak hx triple bypa ss 3 times Heart Disease Father age 76 Diabetes Mother Diabetes Sister Jeannie oc renal c omlications Cancer-breast No Family History Cancer-ovarian No Family History Relation Name Status Comments Brother Frank Father Mother Sister Jeannie Social History Tobacco Use Types Packs/Day Years Used Date Smoking Tobacco: Every Day Cigarettes 0.3 30.9 Started: 01/10/1993 Smokeless Tobacco: Never Tobacco Cessation:Ready to Q uit: Yes; Counseling Given: Yes Comments:Less than a pack a day- 12/04/2023 Alcohol Use Standard Drinks/Week Comments Not Currently 0 (1 standard drink = 0.6 oz pur e alcohol) PHQ-2 Answer Date Recorded PHQ-2 TOTAL SCORE [...] Information Value Date Recorded Sex Assigned at Female 10/13/2023 5:30 PM CDT Gender Identity Female 10/13/2023 5:30 PM CDT Sexual Orientation Straight 10/13/2023 5: 30 PM CDT Obstetrics History Last Filed Vital Signs Vital Sign Reading Time Taken Comments Blood Pressure 152/68 12/05/2023 1:07 PM CDT Pulse 70 12/05/2023 1:07 PM CDT Temperature 36.9 ??C (98.5 ??F) 10/26/2023 11:45 AM C DT Respiratory Rate 16 12/04/2023 1:34 PM CDT Oxygen Saturation 100% 12/05/2023 1:07 PM CDT Inhaled Oxygen Concentration - - Weight 48.2 kg (106 lb 3.2 oz) 12/05/2023 1:07 P M CDT Height 157.5 cm (5' 2) 11/09/2023 1:40 PM CDT Body Mass Index 19.42 11/09/2023 1:40 PM CDT Plan of Treatment Health Maintenance Due Date Last Done Comments Fecal testing non-DNA (FIT,FOBT,iFOBT) for age 45-75 11/02/2022 11/02/2021 (Completed [facility]), 11/29/2018 Medicare Wellness for age 65+ 11/03/2022 11/02/2021 Mammogram for age 45-75 11/09/2022 11/10/19 22, 01/23/2017, 09/10/2010 COVID-19 vaccine series ( season) 2023 04/07/2022, 03/11/2021, 10/12/2020, Additional history exists Depression screening for age 12+ 01/11/2024 01/10/2023, 11/02/2021, 11/02/2021, Additional history exists Influenza for age 65+ 03/03/2024 03/15/2023 , 04/07/2022, 03/23/2020, Additional history exists BMI (ht and wt on same day) for age 18+ 11/08/2024 11/09/2023, 10/23/2023, 08/04/2023, Additional history exists Lipids for age 45-75 11/02/2026 11/02/2021, 12/08/2020, 08/20/2018, Additional history exists Tetanus booster 01/24/2028 01/23/2018, 10/23/2006 Hepatitis C screening for ag e 18-79 Completed 01/04/2010 Tdap Completed 01/23/2018, 10/23/2006 Zoster (shingles) series for age 50+ Completed 10/19/2018, 08/20/2018 DEXA/DXA scan for age 65+ Completed 11/09/2021, Pneumococcal series for age 65+ Completed 04/07/2022, 01/23/2018, 03/05/1996 Medical Devices Implanted Type Area Assistant Oceanographer Device Identifier Shelf Expiration Date Model / Serial / Lot Tissue Pericardium 0.8x8cm Xenosure - [id number] Implanted:Qty: 1 on 10/24/2023 by Bandar Lomeli MD at [facility] Cv Implants Right: Femoral Artery [employer] 03/30/2029 [id number] / / [id number] Procedures Procedure Name Priority Date/Time Associated Diagnosis Comments XR FOOT 3 VIEWS RIGHT Routine 12/05/2023 1:46 PM CDT Injury of right foot, initial encounter US ARTERIAL LOWER EXTREMITY W SHANE BILATERAL Routine 12/04/2023 2:39 PM CDT Claudication of both lower extremities (HC) US AORTA ILIACS IVC WITH DUPLEX Routine 12/04/2023 1:21 PM CDT PVD (peripheral vascular disease) with claudication (HC) MR CARDIAC WWO Routine 12/04/2023 8:06 AM CDT Cardiomyopathy, unspecified type (HC) Chronic chest pain with high risk for CAD RED CELL MORPHOLOGY Routine 10/30/2023 11:16 AM CDT Anemia due to acute blood loss PLATELET ESTIMATE Routine 10/30/2023 11:16 AM CDT Anemia due to acute blood loss MANUAL DIFFERENTIAL Routine 10/30/2023 11:16 AM CDT Anemia due to acute blood loss CBC WITH AUTO DIFFERENTIAL Routine 10/30/2023 11:16 AM CDT Anemia due to acute blood loss BASIC METABOLIC PANEL Routine 10/30/2023 11:16 AM CDT PAD (peripheral artery disease) (HC) IRON PLUS IRON BINDING CAP Routine 10/30/2023 11:16 AM CDT Anemia due to acute blood loss FERRITIN Routine 10/30/2023 11:16 AM CDT Anemia due to acute blood loss CBC WITH AUTO DIFFERENTIAL Routine 10/30/2023 11:16 AM CDT Anemia due to acute blood loss GLUCOSE METER Timed 10/26/2023 11:35 AM CDT CBC W PLT NO DIFF Today 10/26/2023 11:05 AM CDT POTASSIUM Early AM 10/26/2023 11:05 AM CDT GLUCOSE METER Timed 10/26/2023 8:10 AM CDT SCAN-CARDIAC STRIP 10/26/2023 7:27 AM CDT SCAN-CARDIAC STRIP 10/25/2023 11:30 PM CDT GLUCOSE METER Timed 10/25/2023 9:36 PM CDT GLUCOSE METER Timed 10/25/2023 5:31 PM CDT GLUCOSE METER Timed 10/25/2023 5:08 PM CDT SCAN-CARDIAC STRIP 10/25/2023 4:51 PM CDT SCAN-CARDIAC STRIP 10/25/2023 11:55 AM CDT GLUCOSE METER Timed 10/25/2023 11:22 AM CDT HEMOGLOBIN Early AM 10/25/2023 7:27 AM CDT BASIC METABOLIC PANEL Early AM 10/25/2023 7:27 AM CDT GLUCOSE METER Timed 10/25/2023 7:24 AM CDT SCAN-CARDIAC STRIP 10/25/2023 5:57 AM CDT GLUCOSE METER Timed 10/24/2023 9:01 PM CDT GLUCOSE METER Timed 10/24/2023 6:01 PM CDT GLUCOSE METER Timed 10/24/2023 2:52 PM CDT SCAN-CARDIAC STRIP 10/24/2023 2:35 PM CDT GLUCOSE METER Timed 10/24/2023 12:06 PM CDT PV OTHER PROCEDURE Routine 10/24/2023 10:46 AM CDT COMPREHENSIVE BLOOD GAS ARTERIAL Timed 10/24/2023 10:40 AM CDT [facility] ACTIVATED CLOTTING TM CV Timed 10/24/2023 10:38 AM CDT GLUCOSE METER Timed 10/24/2023 10:35 AM CDT HCHG ACTIVATED CLOTTING TM CV Timed 10/24/2023 9:46 AM CDT GLUCOSE METER Timed 10/24/2023 9:44 AM CDT HCHG ACTIVATED CLOTTING TM CV Timed 10/24/2023 9:09 AM CDT GLUCOSE METER Timed 10/24/2023 8:52 AM CDT ENDOTRACHEAL TUBE Routine 10/24/2023 8:31 AM CDT ANGIOGRAM FOR VASCULAR OR PROCEDURE 10/24/2023 7:42 AM CDT PAD, FOOT WOUND Case Notes RIGHT FEMORAL ARTERY ENDARTERECTOMY, POSS RIGHT ILIAC INTERVENTION, POSS RIGHT LEG INTERVENTION ENDARTERECTOMY FEMORAL ARTERY 10/24/2023 7:42 AM CDT PAD, FOOT WOUND Case Notes RIGHT FEMORAL ARTERY ENDARTERECTOMY, POSS RIGHT ILIAC INTERVENTION, POSS RIGHT LEG INTERVENTION [facility] KIT PR5 Routine 10/24/2023 7:28 AM CDT [facility] DRSG PR5 Routine 10/24/2023 7:28 AM CDT [facility] DRSG PR1 Routine 10/24/2023 7:28 AM CDT HG TUBING PR20 Routine 10/24/2023 7:28 AM CDT HC TUBING PR1 Routine 10/24/2023 7:28 AM CDT [facility] ANES ARTERIAL CATH FOR SAMPLE MONITOR TRANS Routine 10/24/2023 7:28 AM CDT [facility] ANES US GUIDE FOR VASC ACCESS Routine 10/24/2023 7:28 AM CDT [facility] CATH PR5 Routine 10/24/2023 7:28 AM CDT GLUCOSE METER Timed 10/24/2023 7:07 AM CDT EKG 12 LEAD Preop 10/24/2023 6:41 AM CDT TYPE & SCREEN Preop 10/24/2023 6:40 AM CDT BASIC METABOLIC PANEL Preop 10/24/2023 6:40 AM CDT CBC W PLT NO DIFF Preop 10/24/2023 6:40 AM CDT SCAN-CARDIAC STRIP 10/24/2023 12:00 AM CDT HEMOGLOBIN Routine 10/23/2023 9:47 AM CDT Pre-op exam BASIC METABOLIC PANEL Routine 10/23/2023 9:47 AM CDT Pre-op exam ECHO TTE COMPLETE WO CONTRAST Routine 10/18/2023 1:57 PM CDT S/P coronary angiogram SCAN-RADIOLOGY REPORT 10/10/2023 12:[address] ANGIO ABDOMEN PELVIS LOWER EXTREMITY RUNOFF [...] complications (HC) RED CELL MORPHOLOGY Routine 09/21/2023 1:35 PM CDT Foot ulceration, right, with unspecified severity (HC) PLATELET ESTIMATE Routine 09/21/2023 1:35 PM CDT Foot ulceration, right, with unspecified severity (HC) MANUAL DIFFERENTIAL Routine 09/21/2023 1:35 PM CDT Foot ulceration, right, with unspecified severity (HC) CBC WITH AUTO DIFFERENTIAL Routine 09/21/2023 1:35 PM CDT Foot ulceration, right, with unspecified severity (HC) CBC WITH AUTO DIFFERENTIAL Routine 09/21/2023 1:35 PM CDT Foot ulceration, right, with unspecified severity (HC) C-REACTIVE PROTEIN Routine 09/21/2023 1:35 PM CDT Foot ulceration, right, with unspecified severity (HC) HEMOGLOBIN A1C Routine 09/21/2023 1:35 PM CDT 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 Anatomical Region Laterality Modality FEET, FOOT R Computed Radiogr aphy 12/05/2023 2:56 PM CDT Narrative 12/05/2023 2:56 PM CDT For Patients: ??As a result of the Cures Act, medical imaging exams and procedure reports are released immediately into your electronic medical record. ??You may view this report before your referring provider. ??If you have questions, please contact your health care provider. Indication: Injury and pain Technique: Right foot 3 views. Comparison: 09/21/2023 Findings: Osteopenia. Stable density in the calcaneus. Pes cavus. No acute fracture. Mild degenerative changes. Postop changes distal phalanx of the great toe. Impression: No sign of acute injury. Dictated by Isidoro Odell MD @ 12/05/2023 2:56:05 PM (Electronically Signed) Procedure Note Isidoro Odell MD - 12/05/2023 For Patients: As a result of the Cures Act, medical imagingexams and procedure reports are released immediately into your electronicmedical record. You may view this report before your referring provider.If you have questions, please contact your health care provider. Indication: Injury and pain Technique: Right foot 3 views. Comparison: 09/21/2023 Findings: Osteopenia. Stable density in the calcaneus. Pes cavus. No acute fracture.Mild degenerative changes. Postop changes distal phalanx of the great toe. Impression: No sign of acute injury. Dictated by Isidoro Odell MD @ 12/05/2023 2:56:05 PM (Electronically Signed) [facility] * US ARTERIAL LOWER EXTREMITY W SHANE BILATERAL (12/04/2023 2:39 PM CDT) Anatomical Region Laterality Modality LEGS Ultrasound 12/04/2023 1:59 PM CDT Narrative 12/04/2023 3:41 PM CDT VASCULAR ULTRASOUND REPORT MARCO A JONES Accession#: ?? [id number] : ?1955 Study Date: ?? 12/04/2023 1:59:17 PM Age: ?68 years ?? Tech: ? CAR Gender: F ?Referring MD: BANDAR LOMELI Site: [facility] Study performed: ?Lower extremity duplex US, resting SHANE, TBI, (bilateral). Indication for study: Follow-up other surgery Study Quality: ?Good TECHNIQUE: Lower/upper extremity arteries [...] requirements. IMPRESSION: 1. Resting ankle-brachial index is borderline on the right at 0.97 and is normal on the left at 0.96. 2. Toe-brachial index is moderately reduced on the right at 0.46 and toe- brachial index is mildly reduced on the left at 0.55. 3. Evaluation of the lower right extremity shows 50-74% stenosis in the proximal superficial femoral artery. 4. No flow-limiting stenosis noted in the left lower extremity. COMPARISON: Compared to prior study 09/27/2023, status post right lower extremity angio and right common femoral artery endarterectomy on 10/24/2023.status post right lower extremity angio and right common femoral artery endarterectomy on 10/24/2023. FINDINGS: Bilateral SHANE are borderline reduced with right at 0.97 and left 0.96. Right TBI is moderately reduced at 0.46 and left TBI mildly reduced at 0.55. Right lower extremity multiphasic flow with monophasic pedal vessels. There is a 50-74% stenosis at the proximal portion of the SFA. Left lower extremity multiphasic flow with no sonographic evidence of hemodynamically significant stenosis. Right toe/brachial index indicates moderate range. There is 50-74% stenosis in the right proximal superficial femoral artery. Left toe/brachial index indicates mild range. +--------+ + + + +--------+-----+ RIGHT ?? Velocity cm/s PRE ? POST ? Phasicity ?? Stenosis Ratio ? Velocity cm/s Velocity cm/s ? Phasicity ? Phasicity ? +--------+ + + + +--------+-----+ OFFICE CORRESPONDENT PRX ? 138 ? multiphasic ? +--------+ + + + +--------+-----+ OFFICE CORRESPONDENT DST ? 52 ? multiphasic ? +--------+ + + + +--------+-----+ PFA ? 89 ? multiphasic ? +--------+ + + + +--------+-----+ SFA PRX ? 174 ? 84 ? 98 ? stenotic ?? 50-74% 2.1 ? multiphasic ?? multiphasic ? +--------+ + + + +--------+-----+ SFA MID ? 119 ? multiphasic ? +--------+ + + + +--------+-----+ SFA DST ? 128 ? multiphasic ? +--------+ + + + +--------+-----+ OBDULIA PRX ? 59 ? multiphasic ? +--------+ + + + +--------+-----+ OBDULAI DST ? 68 ? multiphasic ? +--------+ + + + +--------+-----+ CLOTH PICKER DST ? 41 ? monophasic ? +--------+ + + + +--------+-----+ DPA ? 31 ? monophasic ? +--------+ + + + +--------+-----+ + + + + LEFT ? Velocity cm/s Phasicity ?? + + + + OFFICE CORRESPONDENT PRX ? 96 ? multiphasic + + + + OFFICE CORRESPONDENT DST ? 88 ? multiphasic + + + + PFA ? 64 ? multiphasic + + + + SFA PRX ? 112 ? multiphasic + + + + SFA PRX MID ? 100 ? multiphasic + + + + SFA MID ? 82 ? multiphasic + + + + SFA DST ? 134 ? multiphasic + + + + OBDULIA PRX ? 54 ? multiphasic + + + + OBDULIA DST ? 43 ? multiphasic + + + + CLOTH PICKER DST ? 43 ? multiphasic + + + + DPA ? 25 ? multiphasic + + + + Criteria: Stenosis ?V. Ratio Mild ?<50% ?<2.0 Moderate ?? 50-74% ?> or = 2.0 Severe ? 75-99% ?> or = 4.0 Occluded ?100% ?? no detectable flow Pressures +-----+ +--------+ +-----+ ? RIGHT (mmHg) ? LEFT (mmHg) ? +-----+ +--------+ +-----+ Index ?115 ? Brachial ?114 ? Index +-----+ +--------+ +-----+ 0.87 ?100 ?CLOTH PICKER ?110 ? 0.96 +-----+ +--------+ +-----+ 0.97 ?111 ?DPA ?108 ? 0.94 +-----+ +--------+ +-----+ 0.46 ? 53 ? Digit 1 ?63 ? 0.55 +-----+ +--------+ +-----+ Vipin Aggarwal MD. Electronically signed on 12/04/2023 3:41:37 PM This study was performed and interpreted by a service accredited by the Intersocietal Accreditation Commission (IAC/Vascular), [email or web address] Report generated by [facility]. ??Final ?? Procedure Note Vipin Aggarwal MD - 12/04/2023 VASCULAR ULTRASOUND REPORT MARCO A JONES : 1955 Study Date: 12/04/2023 1:59:17 PM Age: 68 years Tech: CAR Gender: F Referring MD: BANDAR LOMELI Site: [facility] Study performed: Lower extremity duplex US, resting SHANE, TBI,(bilateral). Indication for study: Follow-up other surgery Study Quality: Good TECHNIQUE: Lower/upper extremity arteries [...] requirements. IMPRESSION: 1. Resting ankle-brachial index is borderline on the right at 0.97 and isnormal on the left at 0.96. 2. Toe-brachial index is moderately reduced on the right at 0.46 andtoe-brachial index is mildly reduced on the left at 0.55. 3. Evaluation of the lower right extremity shows 50-74% stenosis in theproximal superficial femoral artery. 4. No flow-limiting stenosis noted in the left lower extremity. COMPARISON: Compared to prior study 09/27/2023, status post right lower extremity angioand right common femoral artery endarterectomy on 10/24/2023.status postright lower extremity angio and right common femoral artery endarterectomyon 10/24/2023. FINDINGS: Bilateral SHANE are borderline reduced with right at 0.97 and left 0.96.Right TBI is moderately reduced at 0.46 and left TBI mildly reduced at0.55. Right lower extremity multiphasic flow with monophasic pedalvessels. There is a 50-74% stenosis at the proximal portion of the SFA.Left lower extremity multiphasic flow with no sonographic evidence ofhemodynamically significant stenosis. Right toe/brachial index indicates moderate range. There is 50-74%stenosis in the right proximal superficial femoral artery. Left toe/brachial index indicates mild range. +--------+ + + + +--------+-----+ RIGHT Velocity cm/s PRE POST Phasicity Stenosis Ratio Velocity cm/s Velocity cm/s Phasicity Phasicity +--------+ + + + +--------+-----+ OFFICE CORRESPONDENT PRX 138 multiphasic +--------+ + + + +--------+-----+ OFFICE CORRESPONDENT DST 52 multiphasic +--------+ + + + +--------+-----+ PFA 89 multiphasic +--------+ + + + +--------+-----+ SFA PRX 174 84 98 stenotic 50-74% 2.1 multiphasic multiphasic +--------+ + + + +--------+-----+ SFA MID 119 multiphasic +--------+ + + + +--------+-----+ SFA DST 128 multiphasic +--------+ + + + +--------+-----+ OBDULIA PRX 59 multiphasic +--------+ + + + +--------+-----+ OBDULIA DST 68 multiphasic +--------+ + + + +--------+-----+ CLOTH PICKER DST 41 monophasic +--------+ + + + +--------+-----+ DPA 31 monophasic +--------+ + + + +--------+-----+ + + + + LEFT Velocity cm/s Phasicity + + + + OFFICE CORRESPONDENT PRX 96 multiphasic + + + + OFFICE CORRESPONDENT DST 88 multiphasic + + + + PFA 64 multiphasic + + + + SFA PRX 112 multiphasic + + + + SFA PRX MID 100 multiphasic + + + + SFA MID 82 multiphasic + + + + SFA DST 134 multiphasic + + + + OBDULIA PRX 54 multiphasic + + + + OBDULIA DST 43 multiphasic + + + + CLOTH PICKER DST 43 multiphasic + + + + DPA 25 multiphasic + + + + Criteria: Stenosis V. Ratio Mild <50% <2.0 Moderate 50-74% > or = 2.0 Severe 75-99% > or = 4.0 Occluded 100% no detectable flow Pressures +-----+ +--------+ +-----+ RIGHT (mmHg) LEFT (mmHg) +-----+ +--------+ +-----+ Index 115 Brachial 114 Index +-----+ +--------+ +-----+ 0.87 100 CLOTH PICKER 110 0.96 +-----+ +--------+ +-----+ 0.97 111 DPA 108 0.94 +-----+ +--------+ +-----+ 0.46 53 Digit 1 63 0.55 +-----+ +--------+ +-----+ Vipin Aggarwal MD. Electronically signed on 12/04/2023 3:41:37 PM This study was performed and interpreted by a service accredited by theIntersocietal Accreditation Commission (IAC/Vascular),[email or web address] Report generated by [facility]. Final Bandar Lomeli MD US * US AORTA ILIACS IVC WITH DUPLEX (12/04/2023 1:21 PM CDT) Anatomical Region Laterality Modality AORTA, Abdomen Ultrasound 12/04/2023 1:17 PM CDT Narrative 12/04/2023 3:32 PM CDT VASCULAR ULTRASOUND REPORT MARCO A JONES Accession#: ?? [id number] : ?1955 Study Date: ?? 12/04/2023 1:17:26 PM Age: ?68 years ?? Tech: ? CAR Gender: F ?Referring MD: BANDAR LOMELI Site: [facility] Study performed: ?Aorta Indication for study: PVD (peripheral vascular disease) with claudication (HC). Study Quality: ?Adequate TECHNIQUE: The abdominal aorta and iliac arteries were examined with duplex ultrasound, color-flow and spectral Doppler. Bypass grafts and/or stents if present are evaluated per exam protocol. Vessel size, peak systolic velocity (PSV) and velocity ratios if applicable, were obtained and documented at sites per exam protocol. IMPRESSION: 1. Suboptimal study with Multiphasic flow in both iliac vessels. COMPARISON: No prior study available for comparison. FINDINGS: Unable to sonographically visualize distal aorta, bilateral FAN and bilateral EIA at proximal and mid portions. Limited exam due to bowel/gas. MEASUREMENTS: + +--------+-------+ + + ? TRV (cm) AP (cm) PSV (cm/s) Phasicity + +--------+-------+ + + Suprarenal aorta ??1.68 ?? 1.57 ?49 ? multiphasic + +--------+-------+ + + Juxtarenal aorta ??1.24 ?? 1.29 ?67 ? multiphasic + +--------+-------+ + + + + + + Right Iliac PSV (cm/s) Phasicity + + + + EIA DST ? 204 ? multiphasic + + + + + + + + Left Iliac PSV (cm/s) Phasicity + + + + EIA DST ? 113 ? multiphasic + + + + Vipin Aggarwal MD. Electronically signed on 12/04/2023 3:32:17 PM This study was performed and interpreted by a service accredited by the Intersocietal Accreditation Commission (IAC/Vascular), [email or web address] Report generated by [facility]. ??Final ?? Procedure Note Vipin Aggarwal MD - 12/04/2023 VASCULAR ULTRASOUND REPORT MARCO A JONES : 1955 Study Date: 12/04/2023 1:17:26 PM Age: 68 years Tech: CAR Gender: F Referring MD: BANDAR LOMELI Site: [facility] Study performed: Aorta Indication for study: PVD (peripheral vascular disease) with claudication(HC). Study Quality: Adequate TECHNIQUE: The abdominal aorta and iliac arteries were examined with duplexultrasound, color-flow and spectral Doppler. Bypass grafts and/or stentsif present are evaluated per exam protocol. Vessel size, peak systolicvelocity (PSV) and velocity ratios if applicable, were obtained anddocumented at sites per exam protocol. IMPRESSION: 1. Suboptimal study with Multiphasic flow in both iliac vessels. COMPARISON: No prior study available for comparison. FINDINGS: Unable to sonographically visualize distal aorta, bilateral FAN andbilateral EIA at proximal and mid portions. Limited exam due tobowel/gas. MEASUREMENTS: + +--------+-------+ + + TRV (cm) AP (cm) PSV (cm/s) Phasicity + +--------+-------+ + + Suprarenal aorta 1.68 1.57 49 multiphasic + +--------+-------+ + + Juxtarenal aorta 1.24 1.29 67 multiphasic + +--------+-------+ + + + + + + Right Iliac PSV (cm/s) Phasicity + + + + EIA DST 204 multiphasic + + + + + + + + Left Iliac PSV (cm/s) Phasicity + + + + EIA DST 113 multiphasic + + + + Vipin Aggarwal MD. Electronically signed on 12/04/2023 3:32:17 PM This study was performed and interpreted by a service accredited by theIntersocietal Accreditation Commission (IAC/Vascular),[email or web address] Report generated by [facility]. Final Bandar Luis Lomeli MD US * MR CARDIAC WWO (12/04/2023 8:06 AM CDT) Anatomical Region Laterality Modality HEART, THORAX Magnetic Resonan ce 12/04/2023 6:32 AM CDT Narrative 12/04/2023 8:46 AM CDT ?[facility] ? CMR Report ??MRN: ?[id number] ?Name: ? MARCO A JONES ?: ?Scan Date: ?Accession Number: ?[id number] ?Status: ?Final ? Electronically signed by Andrew Thompson 08:46:50 VITALS ===== HEIGHT: 62 in ?(157 cm) WEIGHT: 103 lbs ?(47 kgs) BSA: 1.44 m^2 BASELINE HR: 66 BPM SUMMARY ===== 1. Nonspecific nonischemic cardiomyopathy, with nonspecific fibrosis at the basal anteroseptum and at the papillary muscle heads. 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 2. Left ventricle exhibits normal cavity size with normal wall thickness, dyskinetic mid anteroseptum, and mildly reduced systolic function: LVEF 46%. 3. Normal right ventricular size and systolic function: RVEF 62%. 4. No evidence of myocardial infarction, myocarditis, or cardiac amyloidosis. LEFT VENTRICLE: Quantitative LVEF 46 %. LV wall thickness is normal. LV cavity is mildly enlarged. LV systolic function is regionally impaired. There is no LV mass/thrombus. VIABILITY: LV scar size is 1 %. RIGHT VENTRICLE: Quantitative RVEF 62 %. RV wall thickness is normal. RV cavity size is normal. RV systolic function is normal. There is no RV mass/thrombus. There is no RV fibro-fatty infiltration. LV/RV SEPTUM: There is paradoxical septal motion (post-op, LBBB, or paced). LA/RA SEPTUM: The LA/RA septum is normal. LEFT ATRIUM: LA cavity size is normal. RIGHT ATRIUM: RA cavity size is normal. PERICARDIUM: There is a trivial pericardial circumferential effusion. PLEURAL EFFUSION: There is no pleural effusion. AORTIC VALVE: Aortic valve leaflets are normal. There is no aortic stenosis. MITRAL VALVE: Mitral valve leaflets are normal. There is no mitral stenosis. No disjunction. TRICUSPID VALVE: Tricuspid valve leaflets are normal. There is no tricuspid stenosis. AORTIC ROOT: The aortic root is normal. OTHER FINDINGS: Left sided thoracic aorta. ??Ascending thoracic aorta: 30x30 mm ??Descending thoracic aorta: 22 x 22 mm. Normal T2 values: no evidence of edema. CORE EXAM ===== MEASUREMENTS ----- --- ?VOLUMETRIC ANALYSIS ? . . ? LV ?? Reference RV ?? Reference +------+ +------+ +------+ + EDV ?? ml ?143 ??(82-162) ??101 ??(75-160) ? ml/m^2 ? 99 ??(53-87) ? 70 ??(49-86) ?? ESV ?? ml ? 77 ??(20-57) ? 38 ??(11-63) ? ml/m^2 ? 53 ??(13-31) ? 26 ??(8-34) ?? CO ?? L/min ? 4.49 ? 4.28 ? L/min/m^2 3.11 ? 2.97 ? MASS g ? 99 ??(90-272) ? g/m^2 ? 69 ??(48-78) ? SV ?? ml ? 66 ??(56-111) ?? 63 ??(55-106) ? ml/m^2 ? 46 ??(36-60) ? 44 ??(34-58) ?? EF ?? % ? 46 ??(60-78) ? 62 ??(57-81) ?? '------+ +------+ +------+ ' ?CARDIAC OUTPUT HR: ??68 BPM ?LV DIMENSIONS ?WALL THICKNESS - ANTEROSEPTAL: ??1.1 cm ?WALL THICKNESS - INFEROLATERAL: ??0.6 cm ?LA DIMENSIONS (LV SYSTOLE) ?VOLUME: ??35 ml ?VOLUME NORMALIZED: ??24.3 ml/m^2 ?RA DIMENSIONS (RV SYSTOLE) ?VOLUME: ??47 ml ?VOLUME NORMALIZED: ??32.6 ml/m^2 ?EXTRACELLULAR VOLUME MEASUREMENT ?PRE-CONTRAST T1 MYOCARDIUM: ??1053 msec ?ECV: ??30 % 17 SEGMENT ----- --- . ----- ------. Segments ? Wall Motion ?? Hyperenhancement Stress Perfusion Interpretation + + + + +----- ----- ------+ Base Anterior ? Normal/Hyper None ? Base Anteroseptal ?? Normal/Hyper 1-25% ? Non-CAD Scar ?? Base Inferoseptal ?? Normal/Hyper None ? Base Inferior ? Normal/Hyper None ? Base Inferolateral Normal/Hyper None ? Base Anterolateral Normal/Hyper None ? Mid Anterior ? Normal/Hyper None ? Mid Anteroseptal ?? Dyskinetic ?? None ? Mid Inferoseptal ?? Normal/Hyper None ? Mid Inferior ? Normal/Hyper None ? Mid Inferolateral ?? Normal/Hyper None ? Mid Anterolateral ?? Normal/Hyper None ? Apical Anterior ? Normal/Hyper None ? Apical Septal ? Normal/Hyper None ? Apical Inferior ? Normal/Hyper None ? Apical Lateral ? Normal/Hyper None ? [place] ? Normal/Hyper None ? + + + + +----- ----- ------+ RV Segments ? Wall Motion ?? Hyperenhancement ? Interpretation + + + + +----- ----- ------+ RV Basal Anterior ?? Normal/Hyper None ? RV Basal Inferior ?? Normal/Hyper None ? RV Mid ? Normal/Hyper None ? RV Apical ? Normal/Hyper None ? ' + + + +----- ----- ------' ?FINDINGS ?LV SCAR SIZE (17 SEGMENT): ??1 % ?ADDITIONAL FINDINGS: ?bilateral papillary muscle fibrosis. SCAN INFO ===== GENERAL ----- --- ?SCANNER ?ACUTE CARE NURSE PRACTITIONER: ??SIEMENS ?MODEL: ??Aera ?CONTRAST AGENT ?TYPE: ??Gadavist ?GD CONCENTRATION: ??1.0 M ?SETUP ?REASON(S) FOR SCAN: ??Ischemic vs nonischemic ?REFERRING PHYSICIAN: ??LINSEY ANDREW ?ATTENDING PHYSICIAN: ??LINSEY AYON ===== Patient Account ?[id number] ICD10 Codes ?I42.9, R07.9, G89.29, Z91.89 Report generated by [employer], a product of [employer] Procedure Note Andrew Thompson MD - 12/04/2023 [facility] CMR Report Name: MARCO A JONES : Scan Date: Accession Number: [id number] Status: Final Electronically signed by Andrew Thompson 08:46:50 VITALS ===== HEIGHT: 62 in (157 cm) WEIGHT: 103 lbs (47 kgs) BSA: 1.44 m^2 BASELINE HR: 66 BPM SUMMARY ===== 1. Nonspecific nonischemic cardiomyopathy, with nonspecific fibrosis atthe basal anteroseptum and at the papillary muscle heads. Findings can be consistent with LBBB- relatedcardiomyopathy. 2. Left ventricle exhibits normal cavity size with normal wall thickness,dyskinetic mid anteroseptum, and mildly reduced systolic function: LVEF 46%. 3. Normal right ventricular size and systolic function: RVEF 62%. 4. No evidence of myocardial infarction, myocarditis, or cardiacamyloidosis. LEFT VENTRICLE: Quantitative LVEF 46 %. LV wall thickness is normal. LVcavity is mildly enlarged. LV systolic function is regionally impaired. There is no LV mass/thrombus. VIABILITY: LV scar size is 1 %. RIGHT VENTRICLE: Quantitative RVEF 62 %. RV wall thickness is normal. RVcavity size is normal. RV systolic function is normal. There is no RV mass/thrombus. There is no RV fibro-fattyinfiltration. LV/RV SEPTUM: There is paradoxical septal motion (post-op, LBBB, orpaced). LA/RA SEPTUM: The LA/RA septum is normal. LEFT ATRIUM: LA cavity size is normal. RIGHT ATRIUM: RA cavity size is normal. PERICARDIUM: There is a trivial pericardial circumferential effusion. PLEURAL EFFUSION: There is no pleural effusion. AORTIC VALVE: Aortic valve leaflets are normal. There is no aorticstenosis. MITRAL VALVE: Mitral valve leaflets are normal. There is no mitralstenosis. No disjunction. TRICUSPID VALVE: Tricuspid valve leaflets are normal. There is notricuspid stenosis. AORTIC ROOT: The aortic root is normal. OTHER FINDINGS: Left sided thoracic aorta. Ascending thoracic aorta: 30x30 mm Descending thoracic aorta: 22 x 22 mm. Normal T2 values: no evidence of edema. CORE EXAM ===== MEASUREMENTS ----- --- VOLUMETRIC ANALYSIS . . LV Reference RV Reference +------+ +------+ +------+ + EDV ml 143 (82-162) 101 (75-160) ml/m^2 99 (53-87) 70 (49-86) ESV ml 77 (20-57) 38 (11-63) ml/m^2 53 (13-31) 26 (8-34) CO L/min 4.49 4.28 L/min/m^2 3.11 2.97 MASS g 99 (73-145) g/m^2 69 (48-78) SV ml 66 (56-111) 63 (55-106) ml/m^2 46 (36-60) 44 (34-58) EF % 46 (60-78) 62 (57-81) '------+ +------+ +------+ ' CARDIAC OUTPUT HR: 68 BPM LV DIMENSIONS WALL THICKNESS - ANTEROSEPTAL: 1.1 cm WALL THICKNESS - INFEROLATERAL: 0.6 cm LA DIMENSIONS (LV SYSTOLE) VOLUME: 35 ml VOLUME NORMALIZED: 24.3 ml/m^2 RA DIMENSIONS (RV SYSTOLE) VOLUME: 47 ml VOLUME NORMALIZED: 32.6 ml/m^2 EXTRACELLULAR VOLUME MEASUREMENT PRE-CONTRAST T1 MYOCARDIUM: 1053 msec ECV: 30 % 17 SEGMENT ----- --- . ----- ------. Segments Wall Motion Hyperenhancement Stress Perfusion Interpretation + + + + +----- ----- ------+ Base Anterior Normal/Hyper None Base Anteroseptal Normal/Hyper 1-25% Non-CAD Scar Base Inferoseptal Normal/Hyper None Base Inferior Normal/Hyper None Base Inferolateral Normal/Hyper None Base Anterolateral Normal/Hyper None Mid Anterior Normal/Hyper None Mid Anteroseptal Dyskinetic None Mid Inferoseptal Normal/Hyper None Mid Inferior Normal/Hyper None Mid Inferolateral Normal/Hyper None Mid Anterolateral Normal/Hyper None Apical Anterior Normal/Hyper None Apical Septal Normal/Hyper None Apical Inferior Normal/Hyper None Apical Lateral Normal/Hyper None [place] Normal/Hyper None + + + + +----- ----- ------+ RV Segments Wall Motion Hyperenhancement Interpretation + + + + +----- ----- ------+ RV Basal Anterior Normal/Hyper None RV Basal Inferior Normal/Hyper None RV Mid Normal/Hyper None RV Apical Normal/Hyper None ' + + + +----- ----- ------' FINDINGS LV SCAR SIZE (17 SEGMENT): 1 % ADDITIONAL FINDINGS: bilateral papillary muscle fibrosis. SCAN INFO ===== GENERAL ----- --- SCANNER ACUTE CARE NURSE PRACTITIONER: SIEMENS MODEL: Aera CONTRAST AGENT TYPE: Gadavist GD CONCENTRATION: 1.0 M SETUP REASON(S) FOR SCAN: Ischemic vs nonischemic REFERRING PHYSICIAN: LINSEY ANDREW ATTENDING PHYSICIAN: LINSEY AYON ===== Patient Account [id number] ICD10 Codes I42.9, R07.9, G89.29, Z91.89 Report generated by [employer], a product of [employer] Linsey Andrew MD MR * (ABNORMAL) CBC WITH AUTO DIFFERENTIAL (10/30/2023 11:16 AM CDT) Only the most recent of2 resultswithin the time period is included. WHITE BLOOD COUNT 9.9 4.5 - 11.0 thou/cu mm 10/30/2023 12:21 PM CDT [facility] RED BLOOD COUNT 3.39(L) 4.00 - 5.20 mil/cu mm 10/30/2023 12:21 PM CDT [facility] HEMOGLOBIN 10.8(L) 12.0 - 16.0 g/dL 10/30/2023 12:21 PM CDT [facility] HEMATOCRIT 32.9(L) 33.0 - 51.0 % 10/30/2023 12:21 PM CDT [facility] MCV 97 80 - 100 fL 10/30/2023 12:21 PM CDT [facility] MCH 31.9 26.0 - 34.0 pg 10/30/2023 12:21 PM CDT [facility] MCHC 32.8 32.0 - 36.0 g/dL 10/30/2023 12:21 PM CDT [facility] RDW 12.6 11.5 - 15.5 % 10/30/2023 12:21 PM CDT [facility] PLATELET COUNT 396 140 - 440 thou/cu mm 10/30/2023 12:21 PM CDT [facility] MPV 8.9 6.5 - 11.0 fL 10/30/2023 12:21 PM CDT [facility] Blood BLOOD SPECIMEN / Unknown Venipuncture / Unknown 10/30/2023 11:16 AM CDT 10/30/2023 11:17 AM CDT [facility] [address] [place] [address], * RED CELL MORPHOLOGY (10/30/2023 11:16 AM CDT) Only the most recent of2 resultswithin the time period is included. RBC COMMENT RBC morphology appears normal RBC morphology appears normal, RBC morphology within normal limits for newborns. 10/30/2023 12:20 PM CDT [facility] Blood BLOOD SPECIMEN / Unknown Venipuncture / Unknown 10/30/2023 11:16 AM CDT 10/30/2023 11:17 AM CDT [facility] Performing Organization Address City/[facility]/ZIP Co de Phone Number [facility] [address] [place] [address], * PLATELET ESTIMATE (10/30/2023 11:16 AM CDT) Only the most recent of2 resultswithin the time period is included. PLATELET ESTIMATE Adequate Adequate, No estimate 10/30/2023 12:20 PM CDT [facility] Blood BLOOD SPECIMEN / Unknown Venipuncture / Unknown 10/30/2023 11:16 AM CDT 10/30/2023 11:17 AM CDT [facility] Performing Organization Address [facility] [[email or web address]] Co de Phone Number [facility] [address] [place] [address], * MANUAL DIFFERENTIAL (10/30/2023 11:16 AM CDT) Only the most recent of2 resultswithin the time period is included. % NEUTROPHILS 65.0 % 10/30/2023 12:20 PM CDT [facility] % LYMPHOCYTES 24.0 % 10/30/2023 12:20 PM CDT [facility] % MONOCYTES 8.0 % 10/30/2023 12:20 PM CDT [facility] % EOSINOPHILS 3.0 % 10/30/2023 12:20 PM CDT [facility] % BASOPHILS 0.0 % 10/30/2023 12:20 PM CDT [facility] NEUTROPHILS ABSOLUTE 6.4 1.7 - 7.0 thou/cu mm 10/30/2023 12:20 PM CDT [facility] LYMPHOCYTES ABSOLUTE 2.4 0.9 - 2.9 thou/cu mm 10/30/2023 12:20 PM CDT [facility] MONOCYTES ABSOLUTE 0.8 <0.9 thou/cu mm 10/30/2023 12:20 PM CDT [facility] EOSINOPHILS ABSOLUTE 0.3 <0.5 thou/cu mm 10/30/2023 12:20 PM CDT [facility] BASOPHILS ABSOLUTE 0.0 <0.3 thou/cu mm 10/30/2023 12:20 PM CDT [facility] Blood BLOOD SPECIMEN / Unknown Venipuncture / Unknown 10/30/2023 11:16 AM CDT 10/30/2023 11:17 AM CDT Parisa REESE HEMATOLOGY [facility] [address] [place] [address], * IRON PLUS IRON BINDING CAP (10/30/2023 11:16 AM CDT) IRON 56 37 - 145 ug/dL 10/31/2023 6:22 AM CDT [facility] UIBC (UNSATURATED) 225 112 - 347 ug/dL 10/31/2023 6:22 AM CDT [facility] IRON BINDING CAPACITY 281 250 - 400 ug/dL 10/31/2023 6:22 AM CDT [facility] IRON,% SATURATION 20 14 - 50 % 10/31/2023 6:22 AM CDT [facility] Blood BLOOD SPECIMEN / Unknown Venipuncture / Unknown 10/30/2023 11:16 AM CDT 10/30/2023 11:17 AM CDT Parisa REESE CHEMISTRY [facility] [address] [place] [address], * FERRITIN (10/30/2023 11:16 AM CDT) FERRITIN 105.0 15.0 - 150.0 ng/mL 10/31/2023 6:22 AM CDT [facility] Blood BLOOD SPECIMEN / Unknown Venipuncture / Unknown 10/30/2023 11:16 AM CDT 10/30/2023 11:17 AM CDT Parisa REESE CHEMISTRY [facility] [address] [place] [address], * (ABNORMAL) BASIC METABOLIC PANEL (10/30/2023 11:16 AM CDT) Only the most recent of4 resultswithin the time period is included. Pathologist [facility] SODIUM 137 136 - 145 mmol/L 10/31/2023 6:56 AM CDT [facility] POTASSIUM 4.0 3.5 - 5.1 mmol/L 10/31/2023 6:56 AM CDT [facility] CHLORIDE 98 98 - 107 mmol/L 10/31/2023 6:56 AM T [facility] CO2,TOTAL 25 22 - 29 mmol/L 10/31/2023 6:56 AM CDT [facility] ANION GAP 14 5 - 18 10/31/2023 6:56 AM CDT [facility] GLUCOSE 215(H) 70 - 99 mg/dL 10/31/2023 6:56 AM T [facility] CALCIUM 9.2 8.8 - 10.2 mg/dL 10/31/2023 6:56 AM T [facility] BUN 16 8 - 23 mg/dL 10/31/2023 6:56 AM T [facility] CREATININE 1.04(H) 0.50 - 0.90 mg/dL 10/31/2023 6:56 AM T [facility] BUN/CREAT RATIO 15 10 - 20 6:56 AM T [facility] eGFR 59(L) >90 mL/min/1.7 3m2 10/31/2023 6:56 AM T [facility] Comment:As of 2021, eG FR is calculated by the CKD-EPI creatinine equation without race adjustment. ??eGFR can be influenced by muscle mass, exercise, and diet. ??The reported eGFR is an estimation only and is only applicable if the renal function is stable. Blood BLOOD SPECIMEN / Unknown Venipuncture / Unknown 10/30/2023 11:16 AM CDT 10/30/2023 11:17 AM CDT Parisa REESE CHEMISTRY Performing Organization Address [facility] [[email or web address]] Co de Phone Number [facility] [address] [place] [address], * (ABNORMAL) GLUCOSE METER (10/26/2023 11:35 AM CDT) Only the most recent of15 resultswithin the time period is included. GLUCOSE METER 224(H) 65 - 100 mg/dL 10/26/2023 11:35 AM CDT [facility] Blood BLOOD SPECIMEN / Unknown 10/26/2023 11:35 AM CDT 10/26/2023 11:35 AM CDT Bandar Lomeli MD CHEMISTRY Performing Organization Address [facility] de Phone Number [facility] [address] [place] [address], * (ABNORMAL) CBC W PLT NO DIFF (10/26/2023 11:05 AM CDT) Only the most recent of2 resultswithin the time period is included. WHITE BLOOD COUNT 6.1 4.5 - 11.0 thou/cu mm 10/26/2023 11:25 AM CDT [facility] RED BLOOD COUNT 2.72(L) 4.00 - 5.20 mil/cu mm 10/26/2023 11:25 AM CDT [facility] HEMOGLOBIN 8.5(L) 12.0 - 16.0 g/dL 10/26/2023 11:25 AM CDT [facility] HEMATOCRIT 26.1(L) 33.0 - 51.0 % 10/26/2023 11:25 AM CDT [facility] MCV 96 80 - 100 fL 10/26/2023 11:25 AM CDT [facility] MCH 31.3 26.0 - 34.0 pg 10/26/2023 11:25 AM CDT [facility] MCHC 32.6 32.0 - 36.0 g/dL 10/26/2023 11:25 AM CDT [facility] RDW 12.6 11.5 - 15.5 % 10/26/2023 11:25 AM CDT [facility] PLATELET COUNT 235 140 - 440 thou/cu mm 10/26/2023 11:25 AM CDT [facility] MPV 9.6 6.5 - 11.0 fL 10/26/2023 11:25 AM CDT [facility] NRBC 0.0 % 10/26/2023 11:25 AM CDT [facility] ABS NRBC 0.0 thou /cu mm 10/26/2023 11:25 AM CDT [facility] Blood BLOOD SPECIMEN / Unknown Venipuncture / Unknown 10/26/2023 11:05 AM CDT 10/26/2023 11:16 AM CDT Linda Horn NP HEMATOLOGY Performing Organization Address City/State/[facility] [[email or web address]] Co de Phone Number [facility] [address] [place] [phone] [place] [address] * POTASSIUM (10/26/2023 11:05 AM CDT) Pathologist [facility] POTASSIUM 5.1 3.5 - 5.1 mmol/L 10/26/2023 11:44 AM CDT [facility] Blood BLOOD SPECIMEN / Unknown Venipuncture / Unknown 10/26/2023 11:05 AM CDT 10/26/2023 11:16 AM CDT Taylor Vences RN CHEMISTRY [facility] [address] [place] [address], [place] * SCAN-CARDIAC STRIP (10/26/2023 7:27 AM CDT) Scanner OTHER * SCAN-CARDIAC STRIP (10/25/2023 11:30 PM CDT) Scanner OTHER * SCAN-CARDIAC STRIP (10/25/2023 4:51 PM CDT) Scanner OTHER * SCAN-CARDIAC STRIP (10/25/2023 11:55 AM CDT) Scanner OTHER * (ABNORMAL) Hemoglobin (10/25/2023 7:27 AM CDT) Only the most recent of2 resultswithin the time period is included. [facility] HEMOGLOBIN 9.5(L) 12.0 - 16.0 g/dL 10/25/2023 8:01 AM CDT [facility] MCV 96 80 - 100 fL 10/25/2023 8:01 AM CDT [facility] Blood BLOOD SPECIMEN / Unknown Butterfly / Unknown 10/25/2023 7:27 AM CDT 10/25/2023 7:57 AM CDT Narrative [facility] - 10/25/2023 8:01 AM CDT Call if Hgb less than 10. dA Vargas DO HEMATOLOGY [facility] [address] [place] [address], [place] * SCAN-CARDIAC STRIP (10/25/2023 5:57 AM CDT) Scanner OTHER * SCAN-CARDIAC STRIP (10/24/2023 2:35 PM CDT) Scanner OTHER * PV OTHER PROCEDURE (10/24/2023 10:46 AM CDT) Anatomical Region Laterality Modality Other Narrative 10/24/2023 10:46 AM CDT Bandar Lomeli MD ? 10/24/2023 11:16 AM OPERATIVE REPORT SURGEON Bandar Lomeli MD PHOTO ENGRAVER Anselmo Vargas MD (Fellow) ANESTHESIA General PREOPERATIVE DIAGNOSIS right lower extremity atherosclerosis with rest pain ?? POSTOPERATIVE DIAGNOSIS right lower extremity atherosclerosis with rest pain NAME OF OPERATION 1. right femoral artery open exposure 2. right common femoral artery endarterectomy 3. right femoral artery patch angioplasty with bovine pericardium 4. Diagnostic angiogram ??of aorta and bilateral iliac artery systems as well as Right common femoral, profunda, superficial femoral, popliteal, tibial arteries and foot run off. INDICATIONS FOR PROCEDURE Marco A Jones is a ??68 y.o.-year-old presented with severe rest pain and a small right foot wound that was nonhealing but scabbed over. Cta showed severe stenosis or occlusion of common femoral artery on right. There appeared to be significant stenosis of external iliac and SFA/popliteal arteries. By the time she presented for surgery, her wound had mostly healed but she still had severe rest pain. Due to this, I proposed right femoral endarterectomy with possible iliac or leg intervention. ??The procedure, risks, and consequences were described to the patient/family which include but not limited to: stroke, cardiopulmonary compromise, , need for reoperation, bleeding, infection, and damage to nearby structures. The patient/family stated they understood these risks and wished to proceed. OPERATIVE FINDINGS The common femoral artery had occlusion due to bulky calcific disease just proximal to the bifurcation. The SFA was also calcified in at its origin. The profunda seemed spared. After endarterectomy there was good flow through all vessels. Diagnostic angiogram of the iliacs and aorta showed patent aorta and iliacs vessels. Her vessels were small in caliber. There was a large eccentric plaque noted in common iliac artery on one projection but not in others. The mid external iliac artery was also stenosed appearing. Pressure measurements were taken: aorta 138/51 (82), distal common iliac artery 139/50 (81), distal external iliac artery 138/52 (82). There was no pressure gradient noted across these stenoses. Diagnostic angiogram of leg showed small vessels with moderate disease but no flow limitation.there was three vessel run off to the foot but the AT did not cross to form the DP. The PT was the dominant run off with good arborization in the foot. At the end of the procedure, there was markedly improved, now multiphasic PT signal. DESCRIPTION OF PROCEDURE The patient was positioned supine and the appropriate leg was sterilely prepped and draped. A longitudinal incision was made over the femoral artery, and the femoral vessels dissected free from the surrounding tissue. ??Intravenous heparin was administered, and the inflow and outflow vessels were controlled. The artery was opened longitudinally with a #11 blade. An endarterectomy was performed. A bovine pericardium patch was then used to close the artery with a 5-0 Prolene. After unclamping the artery, flow through the artery was documented by doppler. Then a 6F sheath was placed retrograde from common femoral into external iliac artery. Using the appropriate wires, catheters and sheaths, the catheter tip or sheath was advanced to the aorta. Arteriography was performed with the findings as outlined above. Since this procedure was for rest pain and there was no flow limitation noted on the angiogram, I elected to not perform any intervention as hopefully she should have relief from her rest pain after the endarterectomy. The sheath was removed and arteriotomy was closed. The incision were irrigated with saline solution, and closed in multiple layers. The patient was transported in stable condition to the recovery room. SPECIMENS REMOVED None. ESTIMATED BLOOD LOSS 30 cc. INTRAOPERATIVE FLUIDS See anesthesia record. COUNTS All sponge, instrument, needle counts were correct at the end of the procedure. CONDITION ON DISCHARGE FROM OPERATING ROOM Stable. PRESENCE STATEMENT I was present for the entire operation. COURT RECORDING MONITOR MEASURES We utilized approximately 24 cc of Optiray contrast and fluoroscopy time was 1.4 minutes (34.2 mGy). Bandar Lomeli MD CV IMAGING * (ABNORMAL) COMPREHENSIVE BLOOD GAS ARTERIAL (10/24/2023 10:40 AM CDT) PH, ARTERIAL 7.41 7.35 - 7.45 10/24/2023 10:40 AM CDT [facility] PCO2, ARTERIAL 46(H) 32 - 45 mmHg 10/24/2023 10:40 AM CDT [facility] PO2, ARTERIAL 200(H) 83 - 108 mmHg 10/24/2023 10:40 AM CDT [facility] HCO3, ARTERIAL 29(H) 21 - 28 mmol/L 10/24/2023 10:40 AM CDT [facility] BASE EXCESS, ARTERIAL 4.0(H) -2.0 - 3.0 10/24/2023 10:40 AM T [facility] O2 SATURATION, ARTERIAL 99(H) 94 - 98 % 10/24/2023 10:40 AM CDT [facility] PATIENT TEMPERATURE 37.0 Degrees C 10/24/2023 10:40 AM T [facility] COLLECTION SITE ARTERIAL LINE 10/24/2023 10:40 AM CDT [facility] HEMOGLOBIN,BLOO D GAS 8.7(L) 12.0 - 16.0 g/dL 10/24/2023 10:40 AM T [facility] SODIUM 132(L) 136 - 145 mmol/L 10/24/2023 10:40 AM T [facility] POTASSIUM 4.2 3.5 - 5.1 mmol/L 10/24/2023 10:40 AM T [facility] CHLORIDE 104 98 - 107 mmol/L 10/24/2023 10:40 AM T [facility] Blood BLOOD SPECIMEN / Unknown 10/24/2023 10:40 AM CDT 10/24/2023 10:40 AM CDT Bandar Lomeli MD CHEMISTRY [facility] [address] [place] [address], * (ABNORMAL) ACTIVATED CLOTTING TIME [id number] ACT (10/24/2023 10:38 AM CDT) Only the most recent of3 resultswithin the time period is included. [facility] ACTIVATED CLOTTING TIME, POCT 249(H) 74 - 125 sec 10/24/2023 11:28 AM CDT [facility] Blood BLOOD SPECIMEN / Unknown 10/24/2023 10:38 AM CDT 10/24/2023 11:28 AM CDT Bandar Lomeli MD HEMATOLOGY [facility] [address] [place] [address], * ETT (10/24/2023 8:31 AM CDT) Narrative Taylor Gaona, KILN OPERATOR HELPER Student - 10/24/2023 8:31 AM CDT Taylor Ganoa, KILN OPERATOR HELPER Student ? 10/24/2023 ??8:31 AM Procedure: ETT Patient location during procedure: OR ETT Properties Mask Ventilation: easy Final Technique: direct laryngoscopy Type: straight Location: oral Cuffed: yes Tube Size: 7.0 mm Stylet: yes Laryngoscope Blade: Monroy Blade Size: 2 Cormack-Lehane Grade View: 1 Insertion Attempts: 1 Placement Verification: auscultation, end tidal CO2 and symmetrical chest wall movement Assessment: pharynx clear, atraumatic and dentition unchanged Secured at: 21 Measured From: lips Difficulty: 0 (not difficult) Caryn Justin MD ANESTHESIA PX NOTE O RDERABLES * HCHG CATH PR5, HCHG ANES US GUIDE FOR VASC ACCESS, HCHG ANES ARTERIAL CATH FOR SAMPLE MONITOR TRANS, HCHG TUBING PR1, HCHG TUBING PR20, HCHG DRSG PR1, HCHG DRSG PR5, HCHG KIT PR5 (10/24/2023 7:28 AM CDT) Narrative Caryn Justin MD - 10/24/2023 7:28 AM CDT Caryn Justin MD ? 10/24/2023 ??7:28 AM Arterial Line Patient location during procedure: pre-op Start time: 10/24/2023 7:12 AM End time: 10/24/2023 7:18 AM Indications: lab sampling and monitoring Staffing Preanesthetic Checklist Completed: patient identified, risks and benefits discussed, consent obtained and timeout performed Arterial Line Patient position: supine. ??Comment:. Laterality: left Site: radial Local Anesthetic: lidocaine 1%. Ultrasound guidance: live ultrasound, ultrasound permanent image saved and sterile gel and probe cover used in ultrasound-guided central venous catheter insertion. Needle localization (ultrasound): no pathologic findings, selected vessel patent, anatomically normal and needle visualized entering selected vessel. Securement/dressing: Biopatch applied, dressing applied. ??Comment: Needle Catheter size: 20 G. ??Comment:. Catheter length: 4.5 cm. ??Comment: Events: no complications. Caryn Justin MD ANESTHESIA PX NOTE O RDERABLES * EKG (10/24/2023 6:41 AM CDT) Pathologist [facility] Interpretation Normal sinus rhythm Left bundle branch block Abnormal ECG When compared with ECG of 02-FEB-2023 12:33, No significant change was found BEYOND NOW Ventricular Rate 76 BPM BEYOND NOW Atrial Rate 76 BPM BEYOND NOW P-R Interval 190 ms BEYOND NOW QRS Duration 142 ms BEYOND NOW QT 456 ms BEYOND NOW QTc 513 ms BEYOND NOW P [place] 79 degrees BEYOND NOW R [place] 21 degrees BEYOND NOW T [place] 85 degrees BEYOND NOW 10/24/2023 6:41 AM CDT 10/24/2023 1:37 PM CDT Narrative BEYOND NOW - 10/24/2023 1:37 PM CDT Test Indication: PREOP Fannie REESE EKG ORD BEYOND NOW [place], [place] * Type and Screen (10/24/2023 6:40 AM CDT) ABORH O Rh Negative 10/24/2023 7:41 AM CDT [facility] BLOOD BANK ANTIBODY SCREEN Negative Negative 10/24/2023 7:41 AM CDT [facility] SPECIMEN EXPIRATION DATE/TIME 10/27/23 23:59 10/24/2023 7:41 AM CDT [facility] [employer] [facility]-C[facility]TRAL [facility] BLOOD BANK Blood BLOOD SPECIMEN / Unknown Venipuncture / Unknown 10/24/2023 6:40 AM CDT 10/24/2023 6:51 AM CDT Fannie REESE BLOOD BANK [facility] BLOOD BANK [address] [place] [address], * SCAN-CARDIAC STRIP (10/24/2023 12:00 AM CDT) Narrative 10/24/2023 12:00 AM CDT Ordered by an unspecified provider. Other Clinical Staff OTHER * ECHO TTE COMPLETE WO CONTRAST (10/18/2023 1:57 PM CDT) AORTIC VALVE MEAN PG 5 mmHg EJECTION FRACTION 34 % LVEDD 4.6 cm EJECTION FRACTION 40 - 45% Anatomical Region Laterality Modality Ultrasound 10/18/2023 1:06 PM CDT Narrative 10/18/2023 3:42 PM CDT ECHOCARDIOGRAM MARCO A JONES ?Accession#: ?? [id number] : ?1955 68 years Study Date: ?? 10/18/2023 1:06:17 PM Gender: F ? BP: ? 169/69 mmHg Height: 155.00 cm ? BSA: ?1.43 m? ? ? Weight: 47.00 kg ?Tech: ? MTS ?Referring MD: NAINA TURCIOS Site: ? [facility] Reading Location: MOBILE OP Patient Location: Outpatient. Procedure: 2D, Spectral Doppler and Color Doppler. Indication for study: S/P coronary angiogram Cardiac Rhythm: Regular.Study quality: Imaging limitations: This study was subject to imaging limitations due to a prominent lung artifact. Final Impressions: 1. Normal LV size, mildly reduced global systolic function with an estimated EF of 40%. 2. Inferior wall is abnormal. 3. Abnormal septal motion consistent with bundle branch block. 4. Right ventricular cavity size is normal, global systolic RV function is normal. 5. No hemodynamically significant valve disease detected. Comparison Compared to prior exam of 11/16/2022, there has been no significant change. Chamber Sizes and Function Normal left ventricular size, normal wall thickness, mildly reduced global systolic function with an estimated EF of 40 - 45%. Abnormal (paradoxical) septal motion, consistent with left bundle branch block. Left atrial size is normal. Right ventricular cavity size is normal, global systolic RV function is normal. RV wall thickness is normal. The right atrium is normal. Right atrial volume index is 10 ml/m? ? ?. Right atrial area is 8 cm? ? ?. The pulmonary artery is of normal size and origin. The sinus of Valsalva is normal sized. The ascending aorta is normal sized. The inferior wall is hypokinetic. Valves, RV Pressures and Diastolic Function The aortic valve is trileaflet and sclerotic, no stenosis and no regurgitation. The mitral valve is normal in structure, no mitral regurgitation. Indeterminate pattern of LV diastolic filling. The tricuspid valve is normal in structure. Tricuspid regurgitation is trace regurgitation. The pulmonic valve is normal. No pulmonary regurgitation. Masses, Effusion, Shunts There is no pericardial effusion. The inferior vena cava is normal sized, respiratory size variation greater than 50%. No left to right shunting was detected by limited color flow Doppler interrogation of the interatrial septum. MEASUREMENTS AND CALCULATIONS 2-D Measurements and LV Function: LVID (d) 4.6 cm LV FS% (2D) ?? 22 % LVID (s) 3.6 cm LVOT diameter 2.2 cm IVS (d) ??1.0 cm HR ?72 bpm LVPW (d) 1.0 cm LA Vol index ??34 ml/m2 Ao Sinus 2.8 cm RA Vol index ??10 ml/m2 Asc Ao ?? 3.0 cm RA area ? 8 cm?RV Max 4C (d) 3.3 cm Diastology: Mitral ?Tissue Doppler E Peak 0.7 m/s ??e', Septum ? 0.04 m/s A Peak 1.0 m/s ??e', Lateral ?0.08 m/s E/A ?0.7 ?E/e' Average ?? 12.74 DT ? 121 msec Aortic Valve: Vmax ? 1.5 m/s ??JEANIE (V) ?? 1.70 cm? ? ? VTI ?0.36 m ?? JEANIE (I) ?? 1.49 cm? ? ? LVOT V max 0.7 m/s ??Max PG ?9 mmHg LVOT VTI ?? 0.14 m ?? Mean PG ?? 5 mmHg SV ? 54 ml ?Dim Index 0.39 SV index ?? 38 ml/m? ? ? CO ?3.9 l/min ?CI ?2.7 l/min/m? ? ? Mitral Valve: MVA ?6.3 cm? ? ? MV P 1/2 35 msec Tricuspid Valve and estimated PA pressures: TAPSE 2.0 cm . This study was interpreted by an [facility] accredited facility. ??Final ?? Procedure Note Carter Herman MD - 10/18/2023 ECHOCARDIOGRAM MARCO A JONES : 1955 68 years Study Date: 10/18/2023 1:06:17 PM Gender: F BP: 169/69 mmHg Height: 155.00 cm BSA: 1.43 m? ? ? Weight: 47.00 kg Tech: [facility] Referring MD: NAINA TURCIOS Site: [facility] Reading Location: MOBILE OP Patient Location: Outpatient. Procedure: 2D, Spectral Doppler and Color Doppler. Indication for study: S/P coronary angiogram Cardiac Rhythm: Regular.Study quality: Imaging limitations: This study was subject to imaging limitations due toa prominent lung artifact. Final Impressions: 1. Normal LV size, mildly reduced global systolic function with anestimated EF of 40%. 2. Inferior wall is abnormal. 3. Abnormal septal motion consistent with bundle branch block. 4. Right ventricular cavity size is normal, global systolic RV functionis normal. 5. No hemodynamically significant valve disease detected. Comparison Compared to prior exam of 11/16/2022, there has been no significantchange. Chamber Sizes and Function Normal left ventricular size, normal wall thickness, mildly reduced globalsystolic function with an estimated EF of 40 - 45%. Abnormal (paradoxical)septal motion, consistent with left bundle branch block. Left atrial sizeis normal. Right ventricular cavity size is normal, global systolic RVfunction is normal. RV wall thickness is normal. The right atrium isnormal. Right atrial volume index is 10 ml/m? ? ?. Right atrial area is 8cm? ? ?. The pulmonary artery is of normal size and origin. The sinus ofValsalva is normal sized. The ascending aorta is normal sized. Theinferior wall is hypokinetic. Valves, RV Pressures and Diastolic Function The aortic valve is trileaflet and sclerotic, no stenosis and noregurgitation. The mitral valve is normal in structure, no mitralregurgitation. Indeterminate pattern of LV diastolic filling. Thetricuspid valve is normal in structure. Tricuspid regurgitation is traceregurgitation. The pulmonic valve is normal. No pulmonary regurgitation. Masses, Effusion, Shunts There is no pericardial effusion. The inferior vena cava is normal sized,respiratory size variation greater than 50%. No left to right shunting wasdetected by limited color flow Doppler interrogation of the interatrialseptum. MEASUREMENTS AND CALCULATIONS 2-D Measurements and LV Function: LVID (d) 4.6 cm LV FS% (2D) 22 % LVID (s) 3.6 cm LVOT diameter 2.2 cm IVS (d) 1.0 cm HR 72 bpm LVPW (d) 1.0 cm LA Vol index 34 ml/m2 Ao Sinus 2.8 cm RA Vol index 10 ml/m2 Asc Ao 3.0 cm RA area 8 cm? ? ? RV Max 4C (d) 3.3 cm Diastology: Mitral Tissue Doppler E Peak 0.7 m/s e', Septum 0.04 m/s A Peak 1.0 m/s e', Lateral 0.08 m/s E/A 0.7 E/e' Average 12.74 DT 121 msec Aortic Valve: Vmax 1.5 m/s JEANIE (V) 1.70 cm? ? ? VTI 0.36 m JEANIE (I) 1.49 cm? ? ? LVOT V max 0.7 m/s Max PG 9 mmHg LVOT VTI 0.14 m Mean PG 5 mmHg SV 54 ml Dim Index 0.39 SV index 38 ml/m? ? ? CO 3.9 l/min CI 2.7 l/min/m? ? ? Mitral Valve: MVA 6.3 cm? ? ? MV P 1/2 35 msec Tricuspid Valve and estimated PA pressures: TAPSE 2.0 cm . This study was interpreted by an [facility] accredited facility. Final Naina Turcios MD ECHO ORD * SCAN-RADIOLOGY REPORT (10/10/2023 12:00 AM CDT) Anatomical Region Laterality Modality Other Scanner OTHER * CT ANGIO ABDOMEN PELVIS LOWER EXTREMITY [...] artery due to calcified and noncalcified plaque, [id number] severity left Common femoral artery coral reef [...] result of the Century Cures Act, medical imagingexams and procedure reports [...] 70 percent stenosis around Maxx`s canal, and [id number] percent multifocal stenosis of the popliteal artery. [...] iliac artery due to calcified andnoncalcified plaque, [id number] severity left Common femoral arterycoral reef plaque, [...] MD @ 10/09/2023 4:42:38 PM (Electronically Signed) Bandar Luis Lomeli MD CT * (ABNORMAL) CREATININE,ISTAT (10/09/2023 3:48 PM CDT) CREATININE, POCT 0.90 0.57 - 1.11 mg/dL 10/09/2023 3:50 PM CDT [facility] Comment:Caution: Patients ta mariaelena Hydroxyurea have falsely increased iStat Creatinine results. Verify creatinine results ordering a Creatinine (03560.2) eGFR 70(L) >90 mL/min/1.7 3m2 10/09/2023 3:50 PM CDT [facility] Comment:As of 2021, eG FR is calculated by the CKD-EPI creatinine equation without race adjustment. eGFR can be influenced by muscle mass, exercise, and diet. The reported eGFR is an estimation only and is only applicable if the renal function is stable. Blood BLOOD SPECIMEN / Unknown 10/09/2023 3:48 PM CDT 10/09/2023 3:50 PM CDT Parisa REESE CHEMISTRY [facility] [address] [facility] [place] [address], [place] [phone] * US ARTERIAL SEG W TOE PRESSURES (09/27/2023 8:16 AM CDT) Anatomical Region Laterality Modality LEGS Ultrasound 09/27/2023 7:18 AM CDT Narrative 09/27/2023 3:45 PM CDT VASCULAR ULTRASOUND REPORT MARCO A JONES Accession#: ?? [id number] : ?[id number] Study Date: ?? 09/27/2023 7:18:54 AM Age: ?68 years ?? Tech: ? AMS Gender: F ?Referring MD: PARISA CALLAHAN Site: [facility] Vascular [facility] Study performed: ?Lower extremity resting SHANE, [...] Index +-----+ +--------+ +-----+ 0.60 ? 91 ?CLOTH PICKER ?142 ? 0.94 +-----+ +--------+ +-----+ 0.68 ?103 ?DPA ?145 ? 0.96 +-----+ +--------+ +-----+ 0.22 ? 33 ? Digit 1 ?113 ? 0.75 +-----+ +--------+ +-----+ ROBB Johnson. Electronically signed on 09/27/2023 3:45:37 PM This study was performed and interpreted by a service accredited by the Intersocietal Accreditation Commission (IAC/Vascular), www.intersocietal.org/vascular Report generated by [facility]. ??Final ?? Procedure Note Radha Laguna MBBS - 09/27/2023 VASCULAR ULTRASOUND REPORT MARCO A JONES : 1955 Study Date: 09/27/2023 7:18:54 AM Age: 68 years Tech: AMS Gender: F Referring MD: PARISA CALLAHAN Site: [facility] Study performed: Lower extremity resting SHANE, [...] 150 Index +-----+ +--------+ +-----+ 0.60 91 CLOTH PICKER 142 0.94 +-----+ +--------+ +-----+ 0.68 103 DPA 145 0.96 +-----+ +--------+ +-----+ 0.22 33 Digit 1 113 0.75 +-----+ +--------+ +-----+ ROBB Johnson. Electronically signed on 09/27/2023 3:45:37 PM This study was performed and interpreted by a service accredited by theIntersocietal Accreditation Commission (IAC/Vascular),[email or web address]/vascular Report generated by [facility]. Final Parisa REESE US * US ARTERIAL LOWER EXTREMITY RIGHT (09/27/2023 8:16 AM CDT) Anatomical Region Laterality Modality Ultrasound 09/27/2023 7:32 AM CDT Narrative 09/27/2023 3:44 PM CDT VASCULAR ULTRASOUND REPORT MARCO A JONES Accession#: ?? [id number] : ?1955 Study Date: ?? 09/27/2023 7:32:28 AM Age: ?68 years ?? Tech: ? AMS Gender: F ?Referring MD: PARISA CALLAHAN Site: [facility] Vascular [facility] Study performed: ?Lower extremity duplex US, [...] for comparison. FINDINGS: Elevated velocities at the OFFICE CORRESPONDENT are consistent with a severe (75-99%) stenosis. Monophasic waveforms noted distally through out the RT LE. +--------+ + RIGHT ?? Velocity cm/s +--------+ + EIA DST ? 34 ? +--------+ + OFFICE CORRESPONDENT DST ? 629 ? +--------+ + PFA ? 102 ? +--------+ + SFA PRX ? 224 ? +--------+ + SFA MID ? 72 ? +--------+ + SFA DST ? 44 ? +--------+ + OBDULIA PRX ? 53 ? +--------+ + OBDULIA DST ? 35 ? +--------+ + TPT ? 30 ? +--------+ + CLOTH PICKER DST ? 27 ? +--------+ + ISIAH [...] Accreditation Commission (IAC/Vascular), www.intersocietal.org/vascular Report generated by [facility]. ??Final ?? Procedure Note Radha Laguna MBBS - 09/27/2023 VASCULAR ULTRASOUND REPORT MARCO A JONES : 1955 Study Date: 09/27/2023 7:32:28 AM Age: 68 years Tech: AMS Gender: F Referring MD: PARISA CALLAHAN Site: [facility] Study performed: Lower extremity duplex US, [...] for comparison. FINDINGS: Elevated velocities at the OFFICE CORRESPONDENT are consistent with a severe (75-99%)stenosis. Monophasic waveforms noted distally through out the RT LE. +--------+ + RIGHT Velocity cm/s +--------+ + EIA DST 34 +--------+ + OFFICE CORRESPONDENT DST 629 +--------+ + PFA 102 +--------+ + SFA PRX 224 +--------+ + SFA MID 72 +--------+ + SFA DST 44 +--------+ + OBDULIA PRX 53 +--------+ + OBDULIA DST 35 +--------+ + TPT 30 +--------+ + CLOTH PICKER DST 27 +--------+ + ISIAH DST 16 [...] theIntersocietal Accreditation Commission (IAC/Vascular),www.intersocietal.org/vascular Report generated by [facility]. Final Parisa REESE US * XR SHOULDER 3 VIEWS RIGHT (09/21/2023 [...] 3:13:38 PM (Electronically Signed) Procedure Note Isidoro Oedll MD - 09/21/2023 For Patients: As a [...] CREATININE RATIO, RANDOM (09/21/2023 1:46 PM CDT) Pathologist [facility] ALB RAND URINE 15.9 mg/L 09/21/2023 11:32 PM CDT [facility] CREATININE,URIN E 0.76 g/L 09/21/2023 11:32 PM CDT [facility] ALBUMIN TO CREATININE RATIO,RAND UR 20.9 <30.0 mg/g creat 09/21/2023 11:32 PM CDT [facility] Urine URINE SPECIMEN / Unknown Non-Blood / Unknown 09/21/2023 1:46 PM CDT 09/21/2023 1:46 PM CDT Narrative [facility] - 09/21/2023 11:32 PM CDT If Albumin to Creatinine Ratio is elevated, consider the following: ? Elevations seen with incipient nephropathy associated ?? with diabetes mellitus or hypertension. Stress, exercise,hematuria, ?? and urinary tract infection may also produce elevated results. If clinically indicated, confirm with ?24 Hour Albumin to Creatinine Ratio. ?? Parisa REESE URINE Performing Organization Address City/[facility] [[email or web address]] Co de Phone Number [facility] [address] [place] [address], * (ABNORMAL) C-REACTIVE PROTEIN (09/21/2023 1:35 PM CDT) [facility] C-REACTIVE PROTEIN 1.0(H) <0.5 mg/dL 09/21/2023 10:16 PM CDT [facility] Blood BLOOD SPECIMEN / Unknown Venipuncture / Unknown 09/21/2023 1:35 PM CDT 09/21/2023 1:36 PM CDT Parisa REESE CHEMISTRY Performing Organization Address City/[facility]/ZIP Co de Phone Number [facility] [address] [place] [address], * (ABNORMAL) HEMOGLOBIN A1C MONITORING (POCT) (09/21/2023 1:35 PM CDT) [facility] HEMOGLOBIN A1C MONITORING (POCT) 9.8(H) <=6.4 % 09/21/2023 1:55 PM CDT [facility] Blood BLOOD SPECIMEN / Unknown Venipuncture / Unknown 09/21/2023 1:35 PM CDT 09/21/2023 1:36 PM CDT Narrative [facility] - 09/21/2023 1:55 PM CDT ? [...] Untreated Anemias, Splenectomy ? Parisa REESE CHEMISTRY [facility] [address] [place] [address], * XR MAMMO CASSIE BILAT SCREEN (11/09/2021 [...] For Patients: As a result of the 21st Century Cures Act, medical imaging exams and procedure reports are released immediately into your electronic medical record. You may view this report before your referring provider. If you have questions, please contact your health care provider. XR MAMMO CASSIE BILAT SCREEN [[id number]] CLINICAL HISTORY: ??This is an asymptomatic 66 y.o. patient. INDICATION FOR EXAM: Mammogram Screening. TECHNIQUE: CC & MLO views were obtained. ??This study was evaluated with the assistance of Computer-Aided Detection. Breast Tomosynthesis was used in interpretation. COMPARISON FILM: Yes 01/23/17 [facility] 09/10/10 [facility] FINDINGS: ??The breasts are extremely dense, which lowers the sensitivity of mammography. There are no dominant masses, suspicious micro calcifications or areas of architectural distortion. Naina Turcios MD MAMMO * (ABNORMAL) XR DXA BONE [...] Alendronate (Fosamax) medication treatment. Destiny Medellin PA-C [facility] 11/15/2021 Narrative 11/15/2021 8:42 AM CDT For Patients: Results are automatically released to your [facility] ([employer]) account once available, in compliance with federal regulations. This means that you may see your results before your provider has had a chance to review them. Please allow 2-3 business days for your provider to comment on the results. XR DXA Bone Mineral Density (BMD) EXAM LOCATION: [facility] [address] [facility] [id number] PATIENT NAME: Marco A Jones DATE OF : 1955 EXAM DATE: 11/09/2021 REQUESTING PROVIDER: Naina Turcios MD GENDER AT : female HEIGHT: 5' [...] two scanners are made by the same line patroller. PROCEDURE: Dual-energy x-ray absorptiometry performed with routine [...] Osteoporosis: T-score at or below -2.5 SD Naina Turcios MD DEXA * LIPID PANEL W REFLEX MEASURED LDL (11/02/2021 1:10 PM CDT) CHOLESTEROL,TOTAL 121 100 - 199 mg/dL 11/02/2021 11:38 PM CDT [facility] TRIGLYCERIDES 91 <150 mg/dL 11/02/2021 11:38 PM CDT [facility] HDL CHOLESTEROL 45 >40 mg/dL 11:38 PM CDT [facility] NON-HDL CHOLESTEROL 76 <145 mg/dl 11/02/2021 11:38 PM CDT [facility] CHOL/HDL RATIO 2.69 <4.50 11/02/2021 11:38 PM CDT [facility] LDL CHOLESTEROL 58 <=130 mg/dL 11/02/2021 11:38 PM CDT [facility] VLDL CHOLESTEROL 18 <=30 mg/dL 11/02/2021 11:38 PM CDT [facility] PROVIDER ORDERED STATUS RANDOM 11/02/2021 11:38 PM CDT [facility] Blood BLOOD SPECIMEN / Unknown Venipuncture / Unknown 11/02/2021 1:10 PM CDT 11/02/2021 1:10 PM CDT Naina Turcios MD CHEMISTRY [facility] [address] [place] [address], * OCCULT BLOOD IFOBT STOOL (11/29/2018 3:36 PM CDT) STOOL BLOOD ,IFOBT Negative Negative 12/07/2018 9:42 AM CDT [facility] Stool STOOL SPECIMEN / Unknown Non-Blood / Unknown 11/29/2018 3:36 PM CDT 12/06/2018 3:36 PM CDT Naina Turcios MD LABORATORY [facility] [address] [place] [address], * ANTI HCV (01/04/2010 1:58 PM CDT) ANTI HCV Non-reacti ve [facility] Blood specimen (specimen) BLOOD SPECIMEN / Unknown 01/04/2010 1:58 PM CDT 01/04/2010 1:46 PM CDT Naina Turcios MD SEND OUTS [facility] INTERNAL ZIP [address] [address] from Last 3 Months or Most Recently Relevant to Health Maintenance Advance Directives * Full Code (Latest Code Status on File) Date Activated Date Inactivated Comments 10/26/2023 8:38 AM 10/26/2023 4:42 PM Question Answer Comments Code Status Discussion: Reviewed Preferences * Full Code Date Activated Date Inactivated Comments 10/24/2023 6:23 AM 10/26/2023 8:38 AM Question Answer Comments Code Status Discussion: Unable to Assess Preferences, Provider to review later * Full Code Date Activated Date Inactivated Comments 04/23/2023 7:28 [...] to Assess Preferences, Provider to review later Care Teams Boilermaker Apprentice Relationship Specialty Start Date End Date Parisa Callahan PA [address] [place] [address] PCP - General Physician Rolling Machine Operator Automatic 05/16/23 [facility] [address] [address] 02/04/23 Raegan Dumont COTA [address] [place] [address] Occupational Therapy 05/05/23
--- OUTSIDE RECORDS SUMMARY | 2023-12-14 07:56 | XMS_ITS | Clinical Summary ---
Author Organization [facility] Address [address] [place] [address] Care Team Providers Care Assembler Camper Name Role Phone Elsewhere, Pcp Primary Care Provider Unavailabl e Source Comments Patient records contain information from all sites at [facility]. For routine questions regarding patient records, call [phone] during business hours, M-F 8:00 AM - 5:00 PM Central Time. Record requests for emergency care only can be directed to [phone] at any time.[facility] Allergies Active Allergy Reactions Criticality Noted Date Comments Aspirin, Buffered Other (see comments) 01/19/20 07 Hydrochlorothiazide Other (see comments) Medium 2006 low sodium Phenytoin Other (see comments) 01/18/2007 Gingival Hyperplasia Carbamazepine Other (see comments) 01/18/2007 --- Medications Medication Sig Dispensed Refills Start Date End Date Status alendronate (FOSAMAX) 70 mg tablet Take 70 mg by mouth once a week. 08/20/2018 Active atorvastatin (LIPITOR) 10 mg tablet Take 20 mg by mouth daily. 08/20/2018 Active blood sugar diagnostic strips TEST FOUR TIMES DAILY 09/06/2018 Active gabapentin (NEURONTIN) 600 mg tablet TAKE 1 AND ONE-HALF TABLETS BY MOUTH AT BEDTIME AND 1 TABLET EVERY MORNING 08/20/2018 Active insulin glargine (LANTUS) 100 unit/mL injection Inject 12 Units under the skin daily. 08/20/2018 Active levETIRAcetam (KEPPRA) 750 mg tablet Take 750 mg by mouth 2 (two) times a day. 08/20/2018 Active lisinopril (PRINIVIL,ZESTRIL ) 20 mg tablet Take 20 mg by mouth daily. 01/23/2018 Active metoprolol succinate (TOPROL-XL) 200 mg 24 hr tablet Take 200 mg by mouth. 10/23/2018 Active sertraline (ZOLOFT) 50 mg tablet Take 50 mg by mouth daily. 08/20/2018 Active insulin syringe-needle U-100 0.3 mL 31 gauge x 5/16 syringe For administering insulin at home. 08/20/2018 Active lacosamide (VIMPAT) 100 mg tablet Take 100 mg by mouth 2 (two) times a day. Active IP RX HUMAN REGULAR INSULIN 100 UNITS/ML CORRECTION SCALE PANEL Sliding scale per patient 04/03/2022 Active midazolam (NAYZILAM) 5 mg/spray (0.1 mL) spray,non-aerosol nasal spray Administer into nostril(s). 04/26/2022 Active albuterol 90 mcg/actuation inhaler Inhale [...] 10 days. Apply to sternum. 100 g 09/15/2022 Active aspirin [address] tablet Take 1 tablet (81 mg total) by mouth daily. 90 tablet 3 09/15/2022 Active meclizine (ANTIVERT) 25 mg tablet Take 25 mg by mouth 3 (three) times a day. 01/31/2023 Active clopidogreL (PLAVIX) 75 mg tablet Take 75 mg by mouth daily. 01/04/2023 Active diazePAM (Valium) 5 mg tablet Take 5 mg by mouth 2 (two) times a day as needed for anxiety (DIZZINESS). Take 1/2-1 tablet PO Twice daily PRN Dizziness 01/31/2023 Active nitroglycerin (NITROSTAT) 0.[address] 0.4 mg under the tongue every 5 (five) minutes as needed for chest pain. Active multivitamin tablet Take 1 tablet by mouth daily. Active Active Problems Problem Noted Date Diagnosed Date Swelling Leg Right 10/31/2023 Atherosclerotic Heart Diseas e Of [place] Coronary Artery Without Angina Pectoris 09/15/2022 Major Depressive Disorder, Recurrent, Unspecifie d 08/03/2021 Fracture Radius Colles Closed Initial Right 05/03 Overview: Added automatically from request for surgery [id number] Osteoporosis 01/23/2018 Hypertension NOS Diabetes Mellitus Type 2 Encounters Date Type Department Care Team Description 10/31/2023 1:36 PM CDT - 10/31/2023 4:28 PM CDT Emergency [facility] [address] [place] [phone] Isidoro Praker APRN, C.N.P., D.N.P. Swelling Leg Right (Primary Dx) Discharge Disposition: Home or Self Care 09/18/2023 1:45 PM CDT Clinical Support Department of Rehabilitation Services in [address] [phone] Neno Call M.D. Beissel, Curtis J, P.T. Debility 09/18/2023 Clinical Communication Department of Rehabilitation Services in [address] [phone] Felipe Saravia, P.T. 09/13/2023 9:13 PM CDT - 09/13/2023 9:47 PM CDT Emergency [facility] [address] [place] [phone] Serafin Davidson, P.A.CarC. Pain Foot Right (Primary Dx) Discharge Disposition: Home or Self Care from Last 3 Months Immunizations Name Administration Dates Next Due Influenza (IM) Preservative Free 06/11/2014 Influenza TIV (IM) 04/24/2017, 7,04/23/2013,2011,05/14/2005,04/12/2004 Influenza, Injectable, Quadrivalent 04/23/2019,1 Influenza, Quadrivalent, Adj uvanted, Preservative Free 04/07/2022 Influenza, Seasonal, Injectable 04/24/20 17,08/02/2016,04/23/2013,2011,05/14/2005,04/12/2004 Influenza, Unspecified 04/23/2019,05/02/2016, PCV13 01/23/2018 PCV20 04/07/2022 PPSV23 03/05/1996 RZV (SHINGRIX) 10/19/2018,08/20/2018 SARS-COV-2 (COVID-19) - PFIZ ER (Discontinued)(12 years or older) 03/11/2021 Tdap 01/23/2018,10/23/2006 influenza vaccine quad (FLUZONE/FLUARIX) (6 months and older)(PF) 03/23/2020,04/27/2018 Family History Medical History Relation Name Comments Anesthesia problems Neg Hx Social History Tobacco Use Types Packs/Day Years Used Date Smoking Tobacco: Every Day Cigarettes Passive Smoke Exposure: Current Smokeless Tobacco: Never Tobacco Cessation:Ready to Q uit: Not Asked; Counseling Given: Yes Alcohol Use Standard Drinks/Week Comments Yes 0 (1 standard drink = 0.6 oz pur e alcohol) occas PHQ-2 Answer Date Recorded PHQ-2 Score 0 09/03/2022 Nutrition Answer Date Recorded Nutrition: EVOO Fat Source 13 03/17 Nutrition: Servings of Fruits/Vegetables per Day Not on file 03/17/2020 Dental Answer Date Recorded Dental: Regular Dentist Unknown 09/01/19 21 Sex and Gender Information Value Date Recorded Sex Assigned at Not on file Gender Identity Not on file Sexual Orientation Not on file Last Filed Vital Signs Vital Sign Reading Time Taken Comments Blood Pressure 115/55 10/31/2023 3:46 PM CDT Pulse 75 10/31/2023 1:46 PM CDT Temperature 36.9 ??C (98.4 ??F) 10/31/2023 1:46 PM CD T Respiratory Rate 18 10/31/2023 3:46 PM CDT Oxygen Saturation 92% 10/31/2023 3:46 PM CDT Inhaled Oxygen Concentration - - Weight 47.5 kg (104 lb 11.5 oz) 10/31/2023 1:47 PM CDT Height 157.5 cm (5' 2.01) 09/15/2022 3:04 PM CD T Body Mass Index 19.15 09/15/2022 3:04 PM CDT Plan of Treatment [...] Check / Re-check 12/16/2022 09/15/2022 COVID-19 Vaccine (5 - 2022-2 4 season) 2023 04/07/2022, 03/11/2021, 10/12/2020, Additional history exists Fall Risk Screen (Annual) 07/03/2023 Tobacco Cessation counseling 09/16/2023 09/15/2022 Creatinine Level (Kidney Fun ction Test) 10/29/2024 10/30/2023, 10/25/2023, 10/24/2023, Additional history exists Potassium Level 10/29/2024 10/30/2023, 10/02, 10/25/2023, Additional history exists Sodium Level 10/29/2024 10/30/2023, 10/02, 10/24/2023, Additional history exists Lipid (Cholesterol) Screening 11/02/2026, 12/08/2020, 08/20/2018 DTaP,Tdap,and Td Vaccines (3 - Td or Tdap) 01/24/2028 01/23/2018, 10/23/2006 Zoster Vaccines Completed 10/19/2018, 08/20/2018 Pneumococcal vaccine (65+ years) Completed 04/07/2022, 01/23/2018, 03/05/1996 Influenza Vaccine Completed 03/15/2023, , 03/23/2020, Additional history exists Medical Devices Implanted Type Area Real Estate Processor Device Identifier Shelf Expiration Date Model / Serial / Lot Plt Wrst Dvr Rt 3h 24.4x51.3 - [id number] Implanted:Qty : 1 on 05/26/2021 by Jorden Tineo M.D. at [facility] Hardware e.g. pins/screws/ rods [employer] [id number] / / 21. [address] S[address] Sngl 1.6x127 - [id number] Implanted:Qty : 1 on 05/26/2021 by Jorden Tineo M.D. at [facility] Hardware e.g. pins/screws/ rods [employer] [id number] / 21. 319 Scrw Dvr Fthrd 3.5x12 - [id number] Implanted:Qty : 2 on 05/26/2021 by Jorden Tineo M.D. at [facility] Hardware e.g. pins/screws/ rods [employer] [id number] / 21. 319 Peg Fix Dvr Pthrd Lng 2.5x22 - [id number] Implanted:Qty : 3 on 05/26/2021 by Jorden Tineo M.D. at [facility] Hardware e.g. pins/screws/ rods Right: Wrist [employer] [id number] / / 21. 319 Peg Fix Dvr Pthrd Lng 2.5x16 - [id number] Implanted:Qty : 1 on 05/26/2021 by Jorden Tineo M.D. at [facility] Hardware e.g. pins/screws/ rods Right: Wrist [employer] [id number] / / 21. 319 Peg Fix Dvr Smth Lng 2.0x18 - [id number] Implanted:Qty : 3 on 05/26/2021 by Jorden Tineo M.D. at [facility] Hardware e.g. pins/screws/ rods Right: Wrist [employer] [id number] / 21. 319 Scrw Dvr Fthrd 3.5x13 - [id number] Implanted:Qty : 1 on 05/26/2021 by Jorden Tineo M.D. at [facility] Hardware e.g. pins/screws/ rods [employer] [id number] / / 07.05.21. 319 Procedures Procedure Name Priority Date/Time Associated Diagnosis Comments US LOWER EXTREMITY VEINS RIGHT RAD - Semiurgent (Fast; most ED patients; some inpatients) 10/31/2023 4:03 PM CDT US LOWER EXTREMITY ARTERIES RIGHT RAD - Semiurgent (Fast; most ED patients; some inpatients) 10/31/2023 4:02 PM CDT EXTI BASIC METABOLIC PANEL, S/P Routine 10/30/2023 11:16 AM CDT BI BREAST SCREENING BILATERAL WITH TOMOSYNTHESIS Routine 11/09/2021 3:31 PM CDT EXTI LIPID PANEL W REFLEX MEASURED LDL Routine 11/02/2021 1:10 PM CDT from Last 3 Months or Most Recently Relevant to Health Maintenance Results * US Lower Extremity Veins Right (10/31/2023 4:03 PM CDT) Anatomical Region Laterality Modality Lower Extremity, Ultrasound RST LOS, Ultrasound ARZ LOS, Ultrasound FLA LOS Right Ultrasound Impressions 10/31/2023 4:11 PM CDT Negative for acute DVT. The calf veins are suboptimally visualized due to edema in the soft tissues. Narrative 10/31/2023 4:11 PM CDT EXAM: US LOWER EXTREMITY VEINS RIGHT Exam performed with color and spectral Doppler analysis. COMPARISON: None. FINDINGS: RIGHT: Common Femoral Vein: Negative. Profunda Femoral Vein: Negative. Femoral Vein: Negative. Popliteal Vein: Negative. Gastrocnemius Veins: Not well seen. Soleal Veins: Not well seen. Posterior Tibial Veins: Not well seen. Peroneal Veins: Not well seen. Great Saphenous Vein: Negative where seen. Small Saphenous Vein: Not evaluated. Popliteal Fossa: Negative. Other: 3.5 x 2.0 x 1.6 cm heterogeneous fluid collection in the right groin is suspicious for a post surgical hematoma. Information on venous thrombosis and management can be found on the [employer] site. Link [email or web address] Procedure Note Pati Blankenship M.D. - 10/31/2023 EXAM: US LOWER EXTREMITY VEINS RIGHT Exam performed with color and spectral Doppler analysis. COMPARISON: None. FINDINGS: RIGHT: Common Femoral Vein: Negative. Profunda Femoral Vein: Negative. Femoral Vein: Negative. Popliteal Vein: Negative. Gastrocnemius Veins: Not well seen. Soleal Veins: Not well seen. Posterior Tibial Veins: Not well seen. Peroneal Veins: Not well seen. Great Saphenous Vein: Negative where seen. Small Saphenous Vein: Not evaluated. Popliteal Fossa: Negative. Other: 3.5 x 2.0 x 1.6 cm heterogeneous fluid collection in the rightgroin is suspicious for a post surgical hematoma. Information on venous thrombosis and management can be found on the[employer] site. [email or web address].[email or web address] IMPRESSION: Negative for acute DVT. The calf veins are suboptimally visualized due toedema in the soft tissues. Isidoro Parker APRN, C.N.P., D.N.P. IMG US PROCEDURES * US Lower Extremity Arteries Right (10/31/2023 4:02 PM CDT) Anatomical Region Laterality Modality Lower Extremity, Ultrasound RST LOS, Ultrasound ARZ LOS, Ultrasound FLA LOS, Procedural, Vascular Interventional NWWI LOS Right Ultrasound Impressions 10/31/2023 4:15 PM CDT 1. Mildly elevated velocity in the proximal superficial femoral artery which is mildly narrowed as a result of a small adjacent right groin hematoma. No pseudoaneurysm identified. Narrative 10/31/2023 4:15 PM CDT EXAM: US LOWER EXTREMITY ARTERIES RIGHT Exam performed with color and spectral Doppler analysis. COMPARISON: None FINDINGS: RIGHT: ?? Common femoral: 51 cm/s. Profunda femoral: 47 cm/s. Proximal superficial femoral: 163 cm/s. Mid superficial femoral: 113 cm/s. Distal superficial femoral: 31 cm/s. Popliteal: 50 cm/s. Posterior tibial at the ankle: 30 cm/s . Dorsalis Pedis: 65 cm/s. Right groin mixed echogenicity collection measuring 3.5 cm x 1.4 cm. This is separate from the adjacent common femoral artery and there is no internal flow on color Doppler imaging. Procedure Note Jorge Luis Guzman M.D. - 10/31/2023 EXAM: US LOWER EXTREMITY ARTERIES RIGHT Exam performed with color and spectral Doppler analysis. COMPARISON: None FINDINGS: RIGHT: Common femoral: 51 cm/s. Profunda femoral: 47 cm/s. Proximal superficial femoral: 163 cm/s. Mid superficial femoral: 113 cm/s. Distal superficial femoral: 31 cm/s. Popliteal: 50 cm/s. Posterior tibial at the ankle: 30 cm/s . Dorsalis Pedis: 65 cm/s. Right groin mixed echogenicity collection measuring 3.5 cm x 1.4 cm. Thisis separate from the adjacent common femoral artery and there is nointernal flow on color Doppler imaging. IMPRESSION: 1. Mildly elevated velocity in the proximal superficial femoral arterywhich is mildly narrowed as a result of a small adjacent right groinhematoma. No pseudoaneurysm identified. Isidoro Parker APRN, C.N.P., D.N.P. IMG US PROCEDURES from Last 3 Months or Most Recently Relevant to Health Maintenance Care Teams Assembler Camper Relationship Specialty Start Date End Date Elsewhere, Pcp PCP - General Family Medicine 03/11/21
--- OUTSIDE RECORDS SUMMARY | 2023-12-14 07:57 | XMS_ITS | Encounter Summary ---
Author Organization [facility] Address [address] [place] [address] Care Team Providers Care Long Term Care Administrator Name Role Phone Elsewhere, Pcp Primary Care Provider Unavailabl e Reason for Visit * Physical Therapy (Routine) - Canceled Specialty Diagnoses / Procedures Referred By Kashmir t Referred To Contact Diagnoses Debility Procedures PT Ongoing treatment Neno Call M.D. [address] [place] [phone] [facility] Region Referral ID Status Reason Start Date Expiration Date V isits Requested Visits Authorized [id number] Canceled 08/16/2023 07/02/2024 40 40 Encounter Details Date Type Department Care Team (Late st Contact Info) Description 09/08/2023 1:15 PM KILN HAND Clinical Support Department of Rehabilitation Services in [address] [phone] Neno Call M.D. [address] [place] [phone] Fleipe Saravia P.T. [address] [place] [phone] Debility Social History Tobacco Use Types Packs/Day [...] 09/29/23 PT Goal #2: Patient will demonstrate [id number] x5 in 11 seconds. PT Goal #2 [...] min Total Treatment Time (min): 45 min HAND documented in this encounter Plan of Treatment Not on file documented as of this encounter Visit Diagnoses Diagnosis Debility documented in this encounter Care Teams Long Term Care Administrator Relationship Specialty Start Date End Date Elsewhere, Pcp PCP - General Family Medicine 03/11/21 documented as of this encounter
--- OUTSIDE RECORDS SUMMARY | 2023-12-14 07:57 | XMS_ITS | Encounter Summary ---
Author Organization [facility] Address [address] [place] [address] Care Team Providers Care Cash Register Operator Name Role Phone Elsewhere, Pcp Primary Care Provider Unavailabl e Encounter Details Date Type Department Care Team (Latest Contact Info) Description 09/18/2023 Clinical Communication Department of Rehabilitation Services in [address] [phone] Felipe Saravia, P.TTam [address] [place] [phone] Social History Tobacco Use Types Packs/Day Years [...] on filedocumented in this encounter Care Teams Cash Register Operator Relationship Specialty Start Date End Date Elsewhere, Pcp PCP - General Family Medicine 03/11/21 documented as of this encounter
--- OUTSIDE RECORDS SUMMARY | 2023-12-14 07:57 | XMS_ITS | Encounter Summary ---
Author Organization [facility] Address [address] [place] [address] Care Team Providers Care Body Design Checker Name Role Phone Elsewhere, Pcp Primary Care Provider [facility] Reason for Visit * Reason Comments Foot Infection 68 yo presents to [facility] ED via private vehicle with c/o bilateral foot diabetic sores that have been present for last couple months but reports pain has been worsening over the last week. Patient is diabetic. Encounter Details Date Type Department Care Team ([facility] Contact Info) Description 09/13/2023 9:13 PM CDT - 09/13/2023 9:47 PM CDT Emergency [facility] [address] [place] [phone] Serafin Davidson, PTamA.-C. [address] [place] [phone] Pain Foot Right (Primary Dx) Discharge Disposition: [...] sent through Care Everywhere. * Foot Pain (Salvadorean) documented in this encounter Medications at Time of Discharge Medication Sig Dispensed Refills Start Date End Date albuterol 90 mcg/actuation inhaler Inhale 2 puffs every 6 (six) hours as needed for wheezing. 18 g 11 09/15/2022 alendronate (FOSAMAX) 70 mg tablet Take 70 mg by mouth once a week. 08/20/[address] tablet Take 1 tablet (81 mg total) by mouth daily. 90 tablet 3 09/15/2022 atorvastatin (LIPITOR) 10 mg tablet Take 20 mg by mouth daily. 08/20/2018 blood sugar diagnostic strips TEST FOUR TIMES DAILY 09/06/2018 clopidogreL (PLAVIX) 75 mg tablet Take 75 mg by mouth daily. 01/04/2023 diazePAM (Valium) 5 mg tablet Take 5 mg by mouth 2 (two) times a day as needed for anxiety (DIZZINESS). Take 1/2-1 tablet PO Twice daily PRN Dizziness 01/31/2023 diclofenac sodium (VOLTAREN) 1 % gel Apply 4 g topically 4 (four) times a day for 10 days. Apply to sternum. 100 g 09/15/2022 gabapentin (NEURONTIN) 600 mg tablet TAKE 1 AND ONE-HALF TABLETS BY MOUTH AT BEDTIME AND 1 TABLET EVERY MORNING 08/20/2018 insulin glargine (LANTUS) 100 unit/mL injection Inject 12 Units under the skin daily. 08/20/2018 insulin syringe-needle U-100 0.3 mL 31 gauge x 5/16 syringe For administering insulin at home. 08/20/2018 IP RX HUMAN REGULAR INSULIN 100 UNITS/ML CORRECTION SCALE PANEL Sliding scale per patient 04/03/2022 lacosamide (VIMPAT) 100 mg tablet Take 100 mg by mouth 2 (two) times a day. levETIRAcetam (KEPPRA) 750 mg tablet Take 750 mg by mouth 2 (two) times a day. 08/20/2018 lisinopril (PRINIVIL,ZESTRIL) 20 mg tablet Take 20 mg by mouth daily. 01/23/2018 meclizine (ANTIVERT) 25 mg tablet Take 25 mg by mouth 3 (three) times a day. 01/31/2023 metoprolol succinate (TOPROL-XL) 200 mg 24 hr tablet Take 200 mg by mouth. 10/23/2018 midazolam (NAYZILAM) 5 mg/spray (0.1 mL) spray,non-aerosol nasal spray Administer into nostril(s). 04/26/2022 multivitamin tablet Take 1 tablet by mouth daily. nitroglycerin (NITROSTAT) 0.[address] 0.4 mg under the tongue every 5 (five) minutes as needed for chest pain. sertraline (ZOLOFT) 50 mg tablet Take 50 mg by mouth daily. 08/20/2018 tiotropium (Spiriva with HandiHaler) 18 mcg [...] 09/14/23 002 Pain Foot Right Serafin Davidson, P.A.Vijay. 09/14/2323 documented in this encounter Plan of Treatment Not on file documented as of this encounter Visit Diagnoses Diagnosis Pain Foot Right- Primary documented in this encounter Care Teams Body Design Checker Relationship Specialty Start Date End Date Elsewhere, Pcp PCP - General Family Medicine 03/11/21 documented as of this encounter
--- OUTSIDE RECORDS SUMMARY | 2023-12-14 07:57 | XMS_ITS | Encounter Summary ---
Author Organization [facility] Address [address] [place] [address] Care Team Providers Care Enterprise Resource Planning Consultant Name Role Phone Elsewhere, Pcp Primary Care Provider Unavailabl e Encounter Details Date Type Department Care Team (Late st Contact Info) Description 08/07/2023 Clinical Communication Department of Family Medicine, [facility], in [address] [phone] Elsewhere, Pcp Social History Tobacco Use Types [...] on filedocumented in this encounter Care Teams Enterprise Resource Planning Consultant Relationship Specialty Start Date End Date Elsewhere, Pcp PCP - General Family Medicine 03/11/21 documented as of this encounter
--- OUTSIDE RECORDS SUMMARY | 2023-12-14 07:57 | XMS_ITS | Encounter Summary ---
Author Organization [facility] Address [address] [place] [address] Care Team Providers Care Oracle Fusion Middleware Architect Name Role Phone Elsewhere, Pcp Primary Care Provider Unavailabl e Reason for Visit * Physical Therapy (Routine) - Canceled Specialty Diagnoses / Procedures Referred By Kashmir t Referred To Contact Diagnoses Debility Procedures PT Ongoing treatment Neno Call M.D. [address] [place] [phone] [facility] Region Referral ID Status Reason Start Date Expiration Date V isits Requested Visits Authorized [id number] Canceled 08/16/2023 07/02/2024 40 40 Encounter Details Date Type Department Care Team (Late st Contact Info) Description 09/18/2023 1:45 PM CDT Clinical Support Department of Rehabilitation Services in [address] [phone] Neno Call M.D. [address] [place] [phone] Felipe Saravia P.T. [address] [place] [phone] Debility Social History Tobacco Use Types Packs/Day [...] Debility documented in this encounter Care Teams Oracle Fusion Middleware Architect Relationship Specialty Start Date End Date Elsewhere, Pcp PCP - General Family Medicine 03/11/21 documented as of this encounter
--- OUTSIDE RECORDS SUMMARY | 2023-12-14 07:57 | XMS_ITS ---
Author Organization [facility] Address [address] [place] [address] Care Team Providers Care Hand Method Lasting Machine Operator Name Role Phone Unavailable Unavailable Unavailable Surgery Details Not on file Complications Check Surgery Details section. Procedure Estimated Blood Loss Check Surgery Details section. Procedure Findings Check Surgery Details section. Procedure Specimens Taken Check Surgery Details section.
--- OUTSIDE RECORDS SUMMARY | 2023-12-14 07:57 | XMS_ITS | Referral Summary ---
Author Organization [facility] Address [address] [place] [id number] Care Team Providers Care Messenger Office Name Role Phone Elsewhere, Pcp Primary Care Provider Unavailabl e Source Comments Patient records contain information from all sites at [facility]. For routine questions regarding patient records, call [phone] during business hours, M-F 8:00 AM - 5:00 PM Central Time. Record requests for emergency care only can be directed to [phone] at any time.[facility] Encounters Date Type Department Care Team Description 10/31/2023 1:36 PM CDT - 10/31/2023 4:28 PM CDT Emergency [facility] [address] [place] [phone] Isidoro Parker APRN, C.N.P., D.N.P. Swelling Leg Right (Primary Dx) Discharge Disposition: Home or Self Care 09/18/2023 Clinical Communication Department of Rehabilitation Services in [address] [phone] Felipe Saravia, P.T. 09/18/2023 1:45 PM CDT Clinical Support Department of Rehabilitation Services in [address] [phone] Neno Call M.D. Beissel, Curtis J, P.T. Debility 09/13/2023 9:13 PM CDT - 09/13/2023 9:47 PM CDT Emergency [facility] [address] [place] [phone] Serafin Davidson P.A.-C. Pain Foot Right (Primary Dx) Discharge Disposition: Home or Self Care from Last 3 Months Allergies Active Allergy [...] Right 10/31/2023 Atherosclerotic Heart Diseas e Of [place] Coronary Artery Without Angina Pectoris 09/15/2022 Major Depressive Disorder, Recurrent, Unspecifie d 08/03/2021 Fracture Radius Colles Closed Initial Right 05/03 Overview: Added automatically from request for surgery [id number] Osteoporosis 01/23/2018 Hypertension NOS Diabetes Mellitus Type [...] on file Medical Devices Implanted Type Area Assisted Living Manager Device Identifier Shelf Expiration Date Model / Serial / Lot Plt Wrst Dvr Rt 3h 24.4x51.3 - [id number] Implanted:Qty : 1 on 05/26/2021 by Jorden Tineo M.D. at [facility] Hardware e.g. pins/screws/ rods [employer] [id number] / / 07.05.20. [address] S[address] Sngl 1.6x127 - [id number] Implanted:Qty : 1 on 05/26/2021 by Jorden Tineo M.D. at [facility] Hardware e.g. pins/screws/ rods [employer] [id number] / 07.05.20. 319 Scrw Dvr Fthrd 3.5x12 - [id number] Implanted:Qty : 2 on 05/26/2021 by Jorden Tineo M.D. at [facility] Hardware e.g. pins/screws/ rods [employer] [id number] / 07.05.20. 319 Peg Fix Dvr Pthrd Lng 2.5x22 - [id number] Implanted:Qty : 3 on 05/26/2021 by Jorden Tineo M.D. at [facility] Hardware e.g. pins/screws/ rods Right: Wrist [employer] [id number] / 21. 319 Peg Fix Dvr Pthrd Lng 2.5x16 - [id number] Implanted:Qty : 1 on 05/26/2021 by Jorden Tineo M.D. at [facility] Hardware e.g. pins/screws/ rods Right: Wrist [employer] [id number] / 07.05.20. 319 Peg Fix Dvr Smth Lng 2.0x18 - [id number] Implanted:Qty : 3 on 05/26/2021 by Jorden Tineo M.D. at [facility] Hardware e.g. pins/screws/ rods Right: Wrist [employer] [id number] / / 21. 319 Scrw Dvr Fthrd 3.5x13 - [id number] Implanted:Qty : 1 on 05/26/2021 by Jorden Tineo M.D. at [facility] Hardware e.g. pins/screws/ rods [employer] [id number] / / 07.05.20. 319 Procedures Procedure Name Priority Date/Time Associated [...] and management can be found on the [employer] site. Link [email or web address] [email or web address] Procedure Note Pati Blankenship M.D. - 10/31/2023 [...] thrombosis and management can be found on the[employer] site. Linkhttps://[email or web address].[email or web address]-[email or web address]/[email or web address]/cpm -2049 1725 IMPRESSION: Negative for acute DVT. [...] Recently Relevant to Health Maintenance Care Teams Messenger Office Relationship Specialty Start Date End Date Elsewhere, Pcp PCP - General Family Medicine 03/11/21
--- OUTSIDE RECORDS SUMMARY | 2023-12-14 07:57 | XMS_ITS | Encounter Summary ---
Author Organization [facility] Address [address] [place] [address] Care Team Providers Care Antique Furniture Repairer Name Role Phone Elsewhere, Pcp Primary Care Provider Unavailabl e Reason for Visit * Reason Comments Joint Swelling Knee swelling to rig ht. 02/09 pain Encounter Details Date Type Department Care Team (Late st Contact Info) Description 10/31/2023 1:36 PM CDT - 10/31/2023 4:28 PM CDT Emergency [facility] [address] [place] [phone] Isidoro Parker APRN, C.N.P., D.N.P. [address] [place] [phone] Swelling Leg Right (Primary Dx) Discharge Disposition: [...] 11.5 oz) 10/31/2023 1:47 PM CDT Height - - Body Mass Index 19.15 09/15/2022 3:04 PM CDT documented in this encounter Discharge Instructions * Discharge Instructions* Isidoro Parker APRN, C.N.P., D.N.P. - 10/31/2023 4:24 PM CDT Both ultrasounds of your deep veins as well as your artery were acceptable. You do have a very small blood clot at the surgical site which will go away with time in his not in any of your blood vessels. Make sure you elevate your leg while your sitting or laying in bed. Call the vascular surgeon tomorrow to discuss aftercare and whether or not he would want compression wraps on this leg. Thank you for utilizing [facility] for your care! documented in this encounter Medications at Time [...] tablet PO Twice daily PRN Dizziness 01/31/2023 gabapentin (NEURONTIN) 600 mg tablet TAKE 1 [...] as of this encounter ED Notes * Isidoro Parker APRN, C.N.P., D.N.P. - 10/31/2023 1:50 PM CDT Images from the original note were not included. CHIEF COMPLAINT/REASON FOR VISIT Joint Swelling (Knee swelling to right. 8/10 pain) HISTORY OF PRESENT ILLNESS Patient presents to the emergency department with complaints of right leg swelling. Patient states she woke up this morning in her leg was significantly swollen. She is status post 1 week out from a endarterectomy on the right groin right leg for peripheral arterial disease and chronic wounds on her right foot. Patient states her wounds have improved since the surgery. She has not had any complications since the surgery. She did see primary care yesterday, and everything was going fine, she woke up this morning and noticed her leg swelling and increased pain into the right thigh. Denies any fever, chills, sweats or any other symptoms. Denies significant pain below the knee. Noticeable swelling from thigh to the calf. No erythema appreciated. Warmth appreciated. Per chart review, recent surgical procedure at [facility]. Please see the hospital discharge below. BRIEF HOSPITAL COURSE: This 68 y.o. female initially presented with severe rest pain and a small right foot wound that wasnonhealing but scabbed over. Cta showed severe stenosis or occlusion of common femoral artery on right. There appeared to be significant stenosis of external iliac and SFA/popliteal arteries. Underwent Right femoral endarterectomy with bovine patch 10/24/2023. Post operative course patient progressed as expected, ambulation initally impaired by surgical site pain. Pain improved, patient asking to discharge home on POD 2. She was tolerating ambulating in hallway with little assistance now. The patients is ready for discharge on postoperative day 2. The patient is ambulating independently, voiding, and tolerating a solid diet. FOLLOW-UP: She should see HUGH Chopra in 1 week. She will see Dr. Jordy Dash on December 03 with imaging. History provided by: Patient broach trouble shooter needed/used: no REVIEW OF SYSTEMS Constitutional: Negative for chills, [...] HISTORY Medical Past Medical History: Diagnosis Date Diabetes Mellitus Type 2 (HCC) Hypertension NOS Patient Active Problem List Diagnosis Fracture Radius Colles Closed Initial Right Hypertension NOS Diabetes Mellitus Type 2 (HCC) Osteoporosis Major Depressive Disorder, Recurrent, Unspecified (HCC) Atherosclerotic Heart Disease Of [place] Coronary Artery Without Angina Pectoris Swelling Leg Right Surgical Past Surgical History: Procedure Laterality Date CATARACT EXTRACTION AND INSERTION OF INTRAOCULAR LENS N/A 05/31/2012 Cataract extraction and insertion of intraocular lens CATARACT EXTRACTION AND INSERTION OF INTRAOCULAR LENS N/A 06/14/2012 Cataract extraction and insertion of intraocular lens OPEN REDUCTION INTERNAL FIXATION WRIST Right 05/26/2021 Procedure: OPEN REDUCTION INTERNAL FIXATION WRIST-Right; Surgeon: Jorden Tineo M.D.; Location: [facility] OR Family Reviewed in Medical Record Social History Social History Tobacco Use Smoking status: Every Day Current packs/day: 0.25 Types: Cigarettes Passive exposure: Current Smokeless tobacco: Never Substance Use Topics Alcohol use: Yes Comment: occas Social History Substance and Sexual Activity Drug Use Not Currently Frequency: 1.0 times per week Types: Marijuana Comment: vape OBJECTIVE Initial Vital Signs / Weights Initial Vitals Temperature 10/31/23 1346 36.9 ??C Pulse Rate 10/31/23 1346 75 Heart Rate 10/31/23 1546 65 Resp Rate 10/31/23 1346 18 Blood Pressure 10/31/23 1346 119/62 SpO2 10/31/23 1346 99 % Pain Score 10/31/23 1347 8 Wt Readings from Last 3 Encounters: 10/31/23 47.5 kg 09/13/23 47.2 kg 02/01/23 46.1 kg PHYSICAL EXAMINATION Constitutional: Nursing note and vitals reviewed. No distress. HENT: Mouth/Throat: Oropharynx is clear and moist. Mucous membranes are moist. No tonsillar exudate. Eyes: Conjunctivae and EOM are normal. Pupils are equal, round, and reactive to light. Neck: Neck supple. Cardiovascular: Normal rate, regular rhythm, S1 normal, S2 normal and normal heart sounds. Pulses are strong and palpable. No murmur heard.Capillary refill: takes less than 3 seconds Pulmonary/Chest: Effort normal and breath sounds normal. There is normal air entry. No respiratory distress. Abdominal: Soft. Bowel sounds are normal. There is no abdominal tenderness. There is no rebound andno guarding. Musculoskeletal: General: Normal range of motion. Cervical back: Normal range of motion and neck supple. Comments: Right leg is swollen from mid calf to mid thigh. Patient has a incision in the right groin. There has a hematoma at the insertion site. Insertion site is clean and dry with no erythema or drainage. Pedal pulse on the right foot is present. Does have pedal edema. Capillary refill is brisk. Lymphadenopathy: She has no cervical adenopathy. Neurological: Alert and oriented to person, place, and time. No cranial nerve deficit. Skin: Skin is warm, dry and intact. Psychiatric: She has a normal mood and affect. DIAGNOSTICS Radiology US Lower Extremity Veins Right Final Result Negative for acute DVT. The calf veins are suboptimally visualized due to edema in the soft tissues. US Lower Extremity Arteries Right Final Result 1. Mildly elevated velocity in the proximal superficial femoral artery which is mildly narrowed as a result of a small adjacent right groin hematoma. No pseudoaneurysm identified. Procedures None See separate procedure note. ED COURSE ED Course as of 10/31/23 1627 e Oct 31, 2023 1348 I performed my initial evaluation of the patient. We discussed Emergency Department course including testing, treatment, and potential disposition based on findings. 1455 In US getting scanned 1541 Back from US. 1613 Patient s blood sugar was 40 on her CGM. Juice and snacks given to the patient and patient states her blood sugar is getting better. Updated on reason for waiting being rad reads. 1615 Venous ultrasound IMPRESSION: Negative for acute DVT. The calf veins are suboptimally visualized due to edema in the soft tissues. Other: 3.5 x 2.0 x 1.6 cm heterogeneous fluid collection in the right groin is suspicious for a post surgical hematoma. 1619 IMPRESSION: 1. Mildly elevated velocity in the proximal superficial femoral artery which is mildly narrowed as a result of a small adjacent right groin hematoma. No pseudoaneurysm identified. 1621 Instructed the patient to elevate her leg while at home, I want her to call the vascular surgeon tomorrow to discuss possible compression. I discussed the plan for discharge with the patient, and patient/family is agreeable. I discussed with patient the utility, limitations, and findings of the exam/interventions/studies done during this visit as well as the list of differential diagnosis. Patient understands provisional nature of this diagnosis and need for follow up. We discussed the plan of care, including supportive cares. We also discussed symptoms to monitor and symptoms that should prompt them to return for re-evaluation including new or worsening symptoms. All questions and concerns addressed. Patient to be discharged by RN. Final Diagnoses: as of 10/31/23 1627 Swelling Leg Right - Status post endarterectomy common femoral artery INTERVENTIONS Medications - No data to display MEDICAL DECISION MAKING Assessment and Plan Patient presents to the emergency department with complaints of right leg swelling. Patient status post endarterectomy in the right femoral artery secondary to peripheral arterial disease. This happened at [facility]. She states she woke up this morning in her right leg was swollen. Seven some pain in the right thigh. Denies any other constitutional symptoms. She called her primary care doctor who instructed her to come to the emergency department for ultrasounds to rule out blood clots Differential diagnosis includes but not limited to aneurysms, false aneurysm, peripheral arterial thromboembolism, deep vein thromboembolism, or others. Patient had both arterial and venous ultrasounds of her right lower extremity to rule out DVT and or arterial blood clot. Both were patent. More than likely this is just reperfusion edema. Will have her elevate her leg, and have her call her vascular surgeon in the morning to discuss whether or nothe wants compression on this leg. Patient and/or caregiver was given red flag signs & symptoms that would require immediate followup or return to the ED. blood sugar was 108 on discharge . DIFFERENTIAL DIAGNOSES As above. PROBLEMS ADDRESSED THIS VISIT As above. Care is significantly affected by the following Social Determinants of Health: none. I reviewed the following external records: primary care records, prior outpatient labs, prior outpatient radiology tests and inpatient records. The following tests were considered but ultimately not performed: none. Escalation of care, including admission/observation, considered: none. DIAGNOSIS Final diagnoses: [M79.89] Swelling Leg Right - Status post endarterectomy common femoral artery DISPOSITION Home or Self Care DISCHARGE/TRANSFER VITAL SIGNS Vitals: 10/31/23 1546 BP: 115/55 Pulse: Resp: 18 Temp: SpO2: 92% ED DISCHARGE MEDS ED Prescriptions None FOLLOW UP Follow-up with vascular surgery tomorrow. Isidoro Parker, DNP, COMPLIANCE MGR, DEVELOPMENT VICE PRESIDENT-C, AGACNP-BC, ENP-C Emergency Medicine Isidoro Parker APRN, C.N.P., D.N.P. 10/31/23 1627 documented in this encounter Plan of Treatment Not on file documented as of this encounter Procedures Procedure Name Priority Date/Time Associated Diagnosis Comments US LOWER EXTREMITY VEINS RIGHT RAD - Semiurgent (Fast; most ED patients; some inpatients) 10/31/2023 4:03 PM CDT US LOWER EXTREMITY ARTERIES RIGHT RAD - Semiurgent (Fast; most ED patients; some inpatients) 10/31/2023 4:02 PM CDT documented in this encounter Results * US Lower Extremity Veins Right [...] and management can be found on the [employer] site. Link [email or web address]/[email or web address]/[email or web address] [address]5625 Procedure Note Pati Blankenship M.D. - 10/31/2023 [...] thrombosis and management can be found on the[employer] site. [email or web address]/[email or web address]/[facility] -2049 1725 IMPRESSION: Negative for acute DVT. [...] Parker APRN, C.N.P., D.N.P. IMG US PROCEDURES documented in this encounter Visit Diagnoses Diagnosis Swelling Leg Right- Primary Swelling Leg Right documented in this encounter Care Teams Antique Furniture Repairer Relationship Specialty Start Date End Date Elsewhere, Pcp PCP - General Family Medicine 03/11/21 documented as of this encounter
== END 2023-12-14 07:55 | disposition home or self-care (01) ==
LOC: WOUND 07:54
PROVIDERS: PCP Physician Assistant; Visit Provider Nurse Practitioner Family
DX: E10.622 Type 1 diabetes mellitus with other skin ulcer (principal); L97.822 Non-pressure chronic ulcer of other part of left lower leg with fat layer exposed; I10 Essential (primary) hypertension; I73.9 Peripheral vascular disease, unspecified; Z79.4 Long term (current) use of insulin
CPT/HCPCS: 11042; G0463

== ENCOUNTER 2023-12-21 14:36 | Outpatient (CLI) | payer MEDICARE, SELFPAY ==
--- OUTSIDE RECORDS SUMMARY | 2023-12-21 14:38 | XMS_ITS | Referral Summary ---
Author Organization [facility] Address [address] [place] [address] Care Team Providers Care Oxyhydrogen Welder Name Role Phone Elsewhere, Pcp Primary Care Provider Unavailabl e Source Comments Patient records contain information from all sites at [facility]. For routine questions regarding patient records, call [phone] during business hours, M-F 8:00 AM - 5:00 PM Central Time. Record requests for emergency care only can be directed to [phone] at any time.[facility] Encounters Date Type Department Care Team Description 10/31/2023 1:36 PM CDT - 10/31/2023 4:28 PM CDT Emergency [facility] [address] [place] [phone] Isidoro Parker APRN, C.N.P., D.N.P. Swelling Leg [...] Right 10/31/2023 Atherosclerotic Heart Diseas e Of [place] Coronary Artery Without Angina Pectoris 09/15/2022 Major Depressive Disorder, Recurrent, Unspecifie d 08/03/2021 Fracture Radius Colles Closed Initial Right 05/03 Overview: Added automatically from request for surgery [id number] Osteoporosis 01/23/2018 Hypertension NOS Diabetes Mellitus Type [...] on file Medical Devices Implanted Type Area Sharepoint Designer Developer Device Identifier Shelf Expiration Date Model / Serial / Lot Plt Wrst Dvr Rt 3h 24.4x51.3 - [id number] Implanted:Qty : 1 on 05/26/2021 by Jorden Tineo M.D. at [facility] Hardware e.g. pins/screws/ rods [employer] [id number] / / 07.05.20. [address] S[address] Sngl 1.6x127 - [id number] Implanted:Qty : 1 on 05/26/2021 by Jorden Tineo M.D. at [facility] Hardware e.g. pins/screws/ rods [employer] [id number] / / 07.05.20. 319 Scrw Dvr Fthrd 3.5x12 - [id number] Implanted:Qty : 2 on 05/26/2021 by Jorden Tineo M.D. at [facility] Hardware e.g. pins/screws/ rods [employer] [id number] / / 21. 319 Peg Fix Dvr Pthrd Lng 2.5x22 - [id number] Implanted:Qty : 3 on 05/26/2021 by Jorden Tineo M.D. at [facility] Hardware e.g. pins/screws/ rods Right: Wrist [employer] [id number] / / 07.05.20. 319 Peg Fix Dvr Pthrd Lng 2.5x16 - [id number] Implanted:Qty : 1 on 05/26/2021 by Jorden Tineo M.D. at [facility] Hardware e.g. pins/screws/ rods Right: Wrist [employer] [id number] / / 07.05.20. 319 Peg Fix Dvr Smth Lng 2.0x18 - [id number] Implanted:Qty : 3 on 05/26/2021 by Jorden Tineo M.D. at [facility] Hardware e.g. pins/screws/ rods Right: Wrist [employer] [id number] / / 07.05.20. 319 Scrw Dvr Fthrd 3.5x13 - [id number] Implanted:Qty : 1 on 05/26/2021 by Jorden Tineo M.D. at [facility] Hardware e.g. pins/screws/ rods [employer] [id number] / / 07.05.20. 319 Procedures Procedure Name [...] and management can be found on the [employer] site. Link [email or web address].[email or web address]/topic/clinical-answers/cnt-[email or web address]/cpm-204 97386 Procedure Note Pati Blankenship M.D. - 10/31/2023 [...] thrombosis and management can be found on the[employer]ing[employer] site. [email or web address]/clinical-[email or web address]/[email or web address]/cpm -9 1725 IMPRESSION: Negative for acute DVT. The calf veins are suboptimally visualized due toedema in the soft tissues. Krzysztof Knight APRNNDorys, EvelynN.P. IMG US PROCEDURES * US Lower Extremity [...] small adjacent right groinhematoma. No pseudoaneurysm identified. Yony Knight APRN.N.P., D.N.P. IMG US PROCEDURES from Last 3 Months or Most Recently Relevant to Health Maintenance Care Teams Oxyhydrogen Welder Relationship Specialty Start Date End Date Elsewhere, Pcp PCP - General Family Medicine 03/11/21
--- OUTSIDE RECORDS SUMMARY | 2023-12-21 14:38 | XMS_ITS ---
Author Organization [facility] Address [address] [place] [address] Care Team Providers Care Waste Water Worker Name Role Phone Unavailable Unavailable Unavailable Surgery Details Not on file Complications Check Surgery Details section. Procedure Estimated Blood Loss Check Surgery Details section. Procedure Findings Check Surgery Details section. Procedure Specimens Taken Check Surgery Details section.
--- OUTSIDE RECORDS SUMMARY | 2023-12-21 14:38 | XMS_ITS | Clinical Summary ---
Author Organization [facility] Address [place], [place] [address] Care Team Providers Care [employer] Administrator Name Role Phone [facility] Mauri Bazzi Unavailable Raegan Dumont Unavailable [phone] Parisa Callahan Primary Care Provider [phone] Allergies Active Allergy Reactions Criticality Noted Date [...] type, unspecified whether angina present, unspecified whether holy cross or transplanted heart,Cardiomyopat hy, unspecified type (HC) TAKE 1 AND 1/2 TABLETS BY MOUTH ONCE DAILY 135 Tablet 3 11/23/19 24 Active metoprolol succinate (TOPROL XL) 100 mg Sustained-Release tabletIndications: Hypertension, unspecified type,Coronary artery disease, unspecified vessel or lesion type, unspecified whether angina present, unspecified whether holy cross or transplanted heart,Cardiomyopat hy, unspecified type (HC) Take 1.5 Tablets (150 mg) by mouth once daily. Additional refills require cardiology appt. 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 09/15/2022 09/23/2023 Protein-calorie malnutrition 08/03/2021 09/23/2023 Osteomyelitis of great toe of right foot 08/03/2021 09/23/2023 Depression, recurrent 08/03/20212023 DIABETES 05/24/2002 09/23/2023 Encounters Date Type Department Care Team Description 12/05/2023 1:45 PM CDT Ancillary Procedure [facility] [address] [place] [address] 12/05/2023 12:50 PM CDT Office Visit [facility] [address] [place] [address] Parisa Callahan PA Follow Up (Wound on left leg) 12/04/2023 3:00 PM CDT Office Visit [facility] [address] [place] [address] Bandar Lomeli MD CV Vascular Est (1 month Follow up: s/p Right femoral endarterectomy with bovine patch 10/24/2023. US SHANE & aorta prior to OV) 12/04/2023 12:12 PM CDT - 12/04/2023 11:59 PM CDT Hospital Encounter [facility] [address] [place] [address] Linsey Andrew MD Cardiomyopathy, unspecified type (HC); Chronic chest pain with high risk for CAD; Claudication of both lower extremities (HC); PVD (peripheral vascular disease) with claudication (HC) 12/04/2023 Travel 11/30/2023 Telephone [facility] [address] [place] [address] Parisa Callahan PA FOLLOW UP (SORE ) 11/22/2023 Refill [facility] [address] [facility] [address] [place] [address] Linsey Andrew MD Refill Request (Metoprolol Succinate) 11/21/2023 Refill [facility] [address] [place] [address] Parisa Callahan PA Refill Request (HYDROcodone-acetamin ophen (5-325 mg/tablet)/) 11/20/2023 1:10 PM CDT Office Visit [facility] [address] [place] [address] Parisa Callahan PA Follow Up (Recheck wound and foot) 11/20/2023 Telephone [facility] [address] [place] [address] Parisa Callahan PA Medication Management (Medline Gelatein 20 High protein gelatin- 4 fluid ounce cups-Eat 1 serving (4 oz) daily. /) 11/20/2023 Travel 11/14/2023 Refill [facility] [address] [place] [id number] Dov Willard MD Refill Request (Clopidogrel) 11/09/2023 1:30 PM CDT [place] [facility] [place] [address] [facility] [address] [place] [address] Linsey Andrew MD Follow Up (F/u visit. Recent ER visit for R leg swelling./Pt reports feeling ok. /Discuss leg swelling in pain) 11/09/2023 Travel 10/31/2023 Telephone [facility] [address] [place] [address] Parisa Callahan PA Questions; Concerns 10/31/2023 Nurse Triage [facility] [address] [place] [address] Parisa Callahan PA Post-op 10/30/2023 10:30 AM CDT Office Visit [facility] [address] [place] [address] Parisa Callahan PA Hospital F/U (VASCULAR SURGERY) 10/30/2023 Refill [facility] [address] [place] [address] Parisa Callahan PA Refill Request (Freestyle Twyla 14 Day Sensor) 10/30/2023 Travel 10/27/2023 Patient Outreach [facility] [address] [place] [address] Jacki Hernandez, LATOSHA Hospital F/U (LACE 59); Primary RN Care Management 10/24/2023 7:57 AM CDT Anesthesia Event [facility] [address] [place] [address] Caryn Justin MD Hare, Kelly J., LIBRARIAN [employer] Student 10/24/2023 7:45 AM CDT - 10/24/2023 11:01 AM CDT Surgery [facility] [address] [place] [address] Bandar Lomeli MD DIAGNOSTIC ANGIOGRAM. 10/24/2023 6:04 AM CDT - 10/26/2023 2:41 PM CDT Hospital Encounter [facility] [address] [place] [address] Bandar Lomeli MD Post-op pain (Primary Dx) Discharge Disposition: Home Self Care 10/23/2023 8:50 AM CDT Preop Visit [facility] [address] [place] [address] Parisa Callahan PA Preoperative Exam ([facility]-Dr. Lomeli-10/24/23-vas cular surgery) 10/23/2023 Travel 10/18/2023 1:00 PM CDT Ancillary Procedure [facility] [address] [place] [address] 10/17/2023 3:15 PM CDT Office Visit [facility] [address] [place] [address] Huey Bal DPM Follow Up (Bilateral foot pain) 10/17/2023 Travel 10/17/2023 Refill [facility] [address] [place] [address] Parisa Callahan PA Refill Request (Gabapentin 600mg tablets) 10/17/2023 Refill [facility] [address] [place] [address] Naina Turcios MD Refill Request (Lacosamide) 10/11/2023 Telephone [facility] [address] [place] [address] Bandar Lomeli MD Surgery Scheduled 10/11/2023 Refill [facility] [address] [phone] Dov Willard MD Refill Request (Atorvastatin) 10/10/2023 Orders Only [facility] Scanner 1 scan: (1-Ord) AYR, CHEST 1 VIEW PORTABLE, 10/10/2023 10/10/2023 Refill [facility] [address] [place] [address] Lakisha Mcclure MD Refill Request 10/10/2023 Telephone [facility] [address] [place] [address] Bandar Lomeli MD 10/09/2023 3:30 PM CDT Ancillary Procedure [facility] [address] [place] [address] 10/09/2023 3:15 PM CDT Orders Only [facility] [address] [place] [address] Lab, [facility] 10/09/2023 1:00 PM CDT Office Visit [facility] [address] [address] Bandar Lomeli MD CV Vascular New ([place] Consult; lower extremity PAD. Referred by HUGH Oseguera, all records in [facility]. CTA not needed per Dr. Lomeli, U/Ss available in [facility]) 10/09/2023 Travel 10/04/2023 Telephone [facility] [address] [address] Bandar Lomeli MD Referral 09/29/2023 Telephone [facility] [address], [place] [address] Edson Price MD Referral 09/28/2023 Orders Only [facility] [address] [place] [address] Fannie Rubin PA <No scans attached> 09/28/2023 Telephone [facility] [address] [place] [address] Parisa Callahan PA Results 09/28/2023 Orders Only [facility] [address] [place] [address] Parisa Callahan PA <No scans attached> 09/27/2023 7:06 AM CDT - 09/27/2023 11:59 PM CDT Hospital Encounter [facility] [address] [place] [address] Parisa Callahan PA Claudication of both lower extremities (HC) 09/27/2023 Travel 09/21/2023 2:00 PM CDT Ancillary Procedure [address] [place] [address] 09/21/2023 1:45 PM CDT Ancillary Procedure [address] [place] [address] 09/21/2023 1:30 PM CDT Ancillary Procedure [address] [place] [address] 09/21/2023 12:50 PM CDT Office Visit [address] [place] [address] Parisa Callahan PA Foot Pain/problem (Bilateral foot pain-so bad she can't sleep); Shoulder Pain/problem (Fell a week ago and hurt right shoulder) 09/21/2023 Travel 09/20/2023 Refill [facility] [address] [place] [address] Parisa Callahan PA Refill Request (Humulin R Regular U-100 Insuln) from Last 3 Months Immunizations Name Administration Dates Next Due COVID-19 vaccine (Pfizer-Bio NTech 30mcg/0.3mL) 12YO+ BIVALENT PF, MDV 04/07/2022 [...] for age 45-75 11/02/2022 11/02/2021 (Completed o idside of Manav), 11/29/2018 Medicare Wellness for age [...] 01/23/2018, 03/05/1996 Medical Devices Implanted Type Area Outside Production Inspector Device Identifier Shelf Expiration Date Model / Serial / Lot Tissue Pericardium 0.8x8cm Xenosure - [id number] Implanted:Qty: 1 on 10/24/2023 by Bandar Lomeli MD at [facility] Cv Implants Right: Femoral Artery [employer] 03/30/2029 0.8P8 / / [id number] Procedures Procedure Name Priority Date/Time Associated Diagnosis [...] KIT PR5 Routine 10/24/2023 7:28 AM CDT HCHG DRSG PR5 Routine 10/24/2023 7:28 AM CDT HCHG DRSG PR1 Routine 10/24/2023 7:28 AM CDT HCHG TUBING PR20 Routine 10/24/2023 7:28 AM CDT HCHG TUBING PR1 Routine 10/24/2023 7:28 AM CDT HC ANES ARTERIAL CATH FOR SAMPLE MONITOR TRANS Routine 10/24/2023 7:28 AM CDT HCHG ANES US GUIDE FOR VASC ACCESS Routine [...] ULTRASOUND REPORT MARCO A JONES Accession#: ?? [id number] : ?1955 Study Date: ?? 12/04/2023 1:59:17 PM Age: ?68 years ?? Tech: ? CAR Gender: F ?Referring MD: BANDAR LOMELI Site: [facility] Center Study performed: ?Lower extremity [...] Phasicity ? +--------+ + + + +--------+-----+ FOOD AND NUTRITION TEACHER PRX ? 138 ? multiphasic ? +--------+ + + + +--------+-----+ FOOD AND NUTRITION TEACHER DST ? 52 ? multiphasic ? +--------+ [...] ? +--------+ + + + +--------+-----+ OBDULIA DST ? 68 ? multiphasic ? +--------+ + + + +--------+-----+ GAS APPLIANCE MECHANIC DST ? 41 ? monophasic ? +--------+ + + + +--------+-----+ DPA ? 31 ? monophasic ? +--------+ + + + +--------+-----+ + + + + LEFT ? Velocity cm/s Phasicity ?? + + + + FOOD AND NUTRITION TEACHER PRX ? 96 ? multiphasic + + + + FOOD AND NUTRITION TEACHER DST ? 88 ? multiphasic + + [...] 43 ? multiphasic + + + + GAS APPLIANCE MECHANIC DST ? 43 ? multiphasic + + [...] ? Index +-----+ +--------+ +-----+ 0.87 ?100 ?GAS APPLIANCE MECHANIC ?110 ? 0.96 +-----+ +--------+ +-----+ 0.97 ?111 ?DPA ?108 ? 0.94 +-----+ +--------+ +-----+ 0.46 ? 53 ? Digit 1 ?63 ? 0.55 +-----+ +--------+ +-----+ Vipin Aggarwal MD. Electronically signed on 12/04/2023 3:41:37 PM This study was performed and interpreted by a service accredited by the Intersocietal Accreditation Commission (IAC/Vascular), [email or web address]/vascular Report generated by [employer]. ??Final ?? Procedure Note Vipin Aggarwal MD - 12/04/2023 VASCULAR ULTRASOUND REPORT MARCO A JONES : 1955 Study Date: 12/04/2023 1:59:17 PM Age: 68 years Tech: CAR Gender: F Referring MD: BANDAR LOMELI Site: [facility] Study performed: Lower extremity [...] Phasicity Phasicity +--------+ + + + +--------+-----+ FOOD AND NUTRITION TEACHER PRX 138 multiphasic +--------+ + + + +--------+-----+ FOOD AND NUTRITION TEACHER DST 52 multiphasic +--------+ + + + [...] 68 multiphasic +--------+ + + + +--------+-----+ GAS APPLIANCE MECHANIC DST 41 monophasic +--------+ + + + +--------+-----+ DPA 31 monophasic +--------+ + + + +--------+-----+ + + + + LEFT Velocity cm/s Phasicity + + + + FOOD AND NUTRITION TEACHER PRX 96 multiphasic + + + + FOOD AND NUTRITION TEACHER DST 88 multiphasic + + + + PFA 64 multiphasic + + + + SFA PRX 112 multiphasic + + + + SFA PRX MID 100 multiphasic + + + + SFA MID 82 multiphasic + + + + SFA DST 134 multiphasic + + + + OBDULIA PRX 54 multiphasic + + + + OBDULIA DST 43 multiphasic + + + + GAS APPLIANCE MECHANIC DST 43 multiphasic + + + + DPA 25 multiphasic + + + + Criteria: Stenosis V. Ratio Mild <50% <2.0 Moderate 50-74% > or = 2.0 Severe 75-99% > or = 4.0 Occluded 100% no detectable flow Pressures +-----+ +--------+ +-----+ RIGHT (mmHg) LEFT (mmHg) +-----+ +--------+ +-----+ Index 115 Brachial 114 Index +-----+ +--------+ +-----+ 0.87 100 GAS APPLIANCE MECHANIC 110 0.96 +-----+ +--------+ +-----+ 0.97 111 DPA 108 0.94 +-----+ +--------+ +-----+ 0.46 53 Digit 1 63 0.55 +-----+ +--------+ +-----+ Vipin Aggarwal MD. Electronically signed on 12/04/2023 3:41:37 PM This study was performed and interpreted by a service accredited by theIntersocietal Accreditation Commission (IAC/Vascular),[email or web address]/vascular Report generated by [employer]. Final Bandar Luis Lomeli MD US * US AORTA ILIACS IVC WITH DUPLEX (12/04/2023 1:21 PM CDT) Anatomical Region Laterality Modality AORTA, Abdomen Ultrasound 12/04/2023 1:17 PM CDT Narrative 12/04/2023 3:32 PM CDT VASCULAR ULTRASOUND REPORT MARCO A JONES Accession#: ?? [id number] : ?1955 Study Date: ?? 12/04/2023 1:17:26 PM Age: ?68 years ?? Tech: ? CAR Gender: F ?Referring MD: BANDAR LOMELI Site: [facility] - Vascular Center Study performed: ?Aorta Indication for [...] Accreditation Commission (IAC/Vascular), www.[email or web address]/vascular Report generated by [employer]. ??Final ?? Procedure Note Vipin Aggarwal MD - 12/04/2023 VASCULAR ULTRASOUND REPORT MARCO A F ROBERT : 1955 Study Date: 12/04/2023 1:17:26 PM Age: 68 years Tech: CAR Gender: F Referring MD: BANDAR LOMELI Site: [facility] V[facility] Center Study performed: Aorta Indication [...] theIntersocietal Accreditation Commission (IAC/Vascular),www.[email or web address]/vascular Report generated by [employer]. Final Bandar Luis Lomeli MD * MR CARDIAC WWO (12/04/2023 8:06 AM CDT) Anatomical Region Laterality Modality HEART, THORAX Magnetic Resonan ce 12/04/2023 6:32 AM CDT Narrative 12/04/2023 8:46 AM CDT ?[facility] ? CMR Report ??MRN: ?[id number] ?Name: ? MARCO A JONES ?: ? 1955-Dec-21 ?Scan Date: ?Accession Number: ?[id number] ?Status: ?Final ? Electronically signed by Andrew [...] ? 2.97 ? MASS g ? 99 ??(73-145) ? g/m^2 ? 69 ??(48-78) ? SV [...] ? Apical Lateral ? Normal/Hyper None ? Minden ? Normal/Hyper None ? + + + [...] SCAN INFO ===== GENERAL ----- --- ?SCANNER ?PUBLIC HEALTH SERVICE OFFICER: ??SIEMENS ?MODEL: ??Aera ?CONTRAST AGENT ?TYPE: ??Gadavist ?GD CONCENTRATION: ??1.0 M ?SETUP ?REASON(S) FOR SCAN: ??Ischemic vs nonischemic ?REFERRING PHYSICIAN: ??LINSEY ANDREW ?ATTENDING PHYSICIAN: ??LINSEY ANDREW BILLING ===== Patient Account ?[id number] ICD10 Codes ?I42.9, R07.9, G89.29, Z91.89 Report generated by [employer], a product of [employer] Procedure Note Andrew Thompson MD - 12/04/2023 [facility] CMR Report Name: MARCO A JONES : Scan Date: Accession Number: [id number] Status: Final Electronically signed by Andrew Thompson [...] Inferior Normal/Hyper None Apical Lateral Normal/Hyper None Minden Normal/Hyper None + + + + +----- [...] SCAN INFO ===== GENERAL ----- --- SCANNER PUBLIC HEALTH SERVICE OFFICER: SIEMENS MODEL: Aera CONTRAST AGENT TYPE: Gadavist GD CONCENTRATION: 1.0 M SETUP REASON(S) FOR SCAN: Ischemic vs nonischemic REFERRING PHYSICIAN: LINSEY ANDREW ATTENDING PHYSICIAN: LINSEY AYON ===== Patient Account [id number] ICD10 Codes I42.9, R07.9, G89.29, Z91.89 Report generated by [employer], a product of [employer] Linsey Andrew MD MR * (ABNORMAL) CBC WITH AUTO DIFFERENTIAL (10/30/2023 11:16 AM CDT) Only the most recent of2 resultswithin the time period is included. WHITE BLOOD COUNT 9.9 4.5 - 11.0 thou/cu mm 10/30/2023 12:21 PM CDT [facility] RED BLOOD COUNT 3.39(L) 4.00 - 5.20 mil/cu mm 10/30/2023 12:21 PM CDT [facility] HEMOGLOBIN 10.8(L) 12.0 - 16.0 g/dL 10/30/2023 12:21 PM CDT [facility] HEMATOCRIT 32.9(L) 33.0 - 51.0 % 10/30/2023 12:21 PM CDT [facility] MCV 97 80 - 100 fL 10/30/2023 12:21 PM CDT [facility] MCH 31.9 26.0 - 34.0 pg 10/30/2023 12:21 PM CDT [facility] MCHC 32.8 32.0 - 36.0 g/dL 10/30/2023 12:21 PM CDT [facility] RDW 12.6 11.5 - 15.5 % 10/30/2023 12:21 PM CDT [facility] PLATELET COUNT 396 140 - 440 thou/cu mm 10/30/2023 12:21 PM CDT [facility] MPV 8.9 6.5 - 11.0 fL 10/30/2023 12:21 PM CDT [facility] Blood BLOOD SPECIMEN / Unknown Venipuncture / Unknown 10/30/2023 11:16 AM CDT 10/30/2023 11:17 AM CDT Parisa REESE HEMATOLOGY Performing Organization Address City/[facility] Co de Phone Number [facility] [address] [place] [address], [place] [phone] * RED CELL MORPHOLOGY (10/30/2023 11:16 AM CDT) Only the most recent of2 resultswithin the time period is included. RBC COMMENT RBC morphology appears normal RBC morphology appears normal, RBC morphology within normal limits for newborns. 10/30/2023 12:20 PM CDT [facility] Blood BLOOD SPECIMEN / Unknown Venipuncture / Unknown 10/30/2023 11:16 AM CDT 10/30/2023 11:17 AM CDT Parisa REESE HEMATOLOGY Performing Organization Address [facility] de Phone Number [facility] [address] [place] [address], [place] [phone] * PLATELET ESTIMATE (10/30/2023 11:16 AM CDT) Only the most recent of2 resultswithin the time period is included. PLATELET ESTIMATE Adequate Adequate, No estimate 10/30/2023 12:20 PM CDT [facility] Blood BLOOD SPECIMEN / Unknown Venipuncture / Unknown 10/30/2023 11:16 AM CDT 10/30/2023 11:17 AM CDT Parisa REESE HEMATOLOGY Performing Organization Address City/[facility]/ZIP Co de Phone Number [facility] [address] [place] [address], [place] [phone] * MANUAL DIFFERENTIAL (10/30/2023 11:16 AM CDT) Only the most recent of2 resultswithin the time period is included. % NEUTROPHILS 65.0 % 10/30/2023 12:20 PM CDT [facility] % LYMPHOCYTES 24.0 % 10/30/2023 12:20 PM CDT [facility] % MONOCYTES 8.0 % 10/30/2023 12:20 PM CDT [facility] % EOSINOPHILS 3.0 % 10/30/2023 12:20 PM CDT [facility] % BASOPHILS 0.0 % 10/30/2023 12:20 PM CDT [facility] NEUTROPHILS ABSOLUTE 6.4 1.7 - 7.0 thou/cu mm 10/30/2023 12:20 PM CDT [facility] LYMPHOCYTES ABSOLUTE 2.4 0.9 - 2.9 thou/cu mm 10/30/2023 12:20 PM CDT [facility] MONOCYTES ABSOLUTE 0.8 <0.9 thou/cu mm 10/30/2023 12:20 PM CDT [facility] EOSINOPHILS ABSOLUTE 0.3 <0.5 thou/cu mm 10/30/2023 12:20 PM CDT [facility] BASOPHILS ABSOLUTE 0.0 <0.3 thou/cu mm 10/30/2023 12:20 PM CDT [facility] Blood BLOOD SPECIMEN / Unknown Venipuncture / Unknown 10/30/2023 11:16 AM CDT 10/30/2023 11:17 AM CDT Parisa REESE HEMATOLOGY [facility] [address] [place] [address], * IRON PLUS IRON BINDING CAP (10/30/2023 11:16 AM CDT) IRON 56 37 - 145 ug/dL 10/31/2023 6:22 AM CDT [facility] UIBC (UNSATURATED) 225 112 - 347 ug/dL 10/31/2023 6:22 AM CDT [facility] IRON BINDING CAPACITY 281 250 - 400 ug/dL 10/31/2023 6:22 AM CDT [facility] IRON,% SATURATION 20 14 - 50 % 10/31/2023 6:22 AM CDT [facility] Blood BLOOD SPECIMEN / Unknown Venipuncture / Unknown 10/30/2023 11:16 AM CDT 10/30/2023 11:17 AM CDT Parisa REESE CHEMISTRY Performing Organization Address City/[facility]/ZIP Co de Phone Number [facility] [address] [place] [address], * FERRITIN (10/30/2023 11:16 AM CDT) Pathologist [facility] FERRITIN 105.0 15.0 - 150.0 ng/mL 10/31/2023 6:22 AM CDT [facility] Blood BLOOD SPECIMEN / Unknown Venipuncture / Unknown 10/30/2023 11:16 AM CDT 10/30/2023 11:17 AM CDT Parisa REESE CHEMISTRY Performing Organization Address [facility] Co de Phone Number [facility] [address] * (ABNORMAL) BASIC METABOLIC PANEL (10/30/2023 11:16 AM CDT) Only the most recent of4 resultswithin the time period is included. SODIUM 137 136 - 145 mmol/L 10/31/2023 6:56 AM CDT [facility] POTASSIUM 4.0 3.5 - 5.1 mmol/L 10/31/2023 6:56 AM CDT [facility] CHLORIDE 98 98 - 107 mmol/L 10/31/2023 6:56 AM CDT [facility] CO2,TOTAL 25 22 - 29 mmol/L 10/31/2023 6:56 AM CDT [facility] ANION GAP 14 5 - 18 10/31/2023 6:56 AM CDT [facility] GLUCOSE 215(H) 70 - 99 mg/dL 10/31/2023 6:56 AM CDT [facility] CALCIUM 9.2 8.8 - 10.2 mg/dL 10/31/2023 6:56 AM CDT [facility] BUN 16 8 - 23 mg/dL 10/31/2023 6:56 AM CDT [facility] CREATININE 1.04(H) 0.50 - 0.90 mg/dL 10/31/2023 6:56 AM CDT [facility] BUN/CREAT RATIO 15 10 - 20 6:56 AM T [facility] eGFR 59(L) >90 mL/min/1.7 3m2 10/31/2023 6:56 AM CDT [facility] Comment:As of 2021, eG FR is calculated by the CKD-EPI creatinine equation without race adjustment. ??eGFR can be influenced by muscle mass, exercise, and diet. ??The reported eGFR is an estimation only and is only applicable if the renal function is stable. Blood BLOOD SPECIMEN / Unknown Venipuncture / Unknown 10/30/2023 11:16 AM CDT 10/30/2023 11:17 AM CDT Parisa REESE CHEMISTRY [facility] [address] [place] [address], * (ABNORMAL) GLUCOSE METER (10/26/2023 11:35 AM CDT) Only the most recent of15 resultswithin the time period is included. [facility] GLUCOSE METER 224(H) 65 - 100 mg/dL 10/26/2023 11:35 AM CDT [facility] Blood BLOOD SPECIMEN / Unknown 10/26/2023 11:35 AM CDT 10/26/2023 11:35 AM CDT Bandar Lomeli MD CHEMISTRY [facility] [address] [place] [address], * (ABNORMAL) CBC W PLT NO DIFF (10/26/2023 11:05 AM CDT) Only the most recent of2 resultswithin the time period is included. WHITE BLOOD COUNT 6.1 4.5 - 11.0 thou/cu mm 10/26/2023 11:25 AM CDT [facility] RED BLOOD COUNT 2.72(L) 4.00 - 5.20 mil/cu mm 10/26/2023 11:25 AM CDT [facility] HEMOGLOBIN 8.5(L) 12.0 - 16.0 g/dL 10/26/2023 11:25 AM CDT [facility] HEMATOCRIT 26.1(L) 33.0 - 51.0 % 10/26/2023 11:25 AM CDT [facility] MCV 96 80 - 100 fL 10/26/2023 11:25 AM CDT [facility] MCH 31.3 26.0 - 34.0 pg 10/26/2023 11:25 AM CDT [facility] MCHC 32.6 32.0 - 36.0 g/dL 10/26/2023 11:25 AM CDT [facility] RDW 12.6 11.5 - 15.5 % 10/26/2023 11:25 AM CDT [facility] PLATELET COUNT 235 140 - 440 thou/cu mm 10/26/2023 11:25 AM CDT [facility] MPV 9.6 6.5 - 11.0 fL 10/26/2023 11:25 AM CDT [facility] NRBC 0.0 % 10/26/2023 11:25 AM CDT [facility] ABS NRBC 0.0 thou /cu mm 10/26/2023 11:25 AM CDT [facility] Blood BLOOD SPECIMEN / Unknown Venipuncture / Unknown 10/26/2023 11:05 AM CDT 10/26/2023 11:16 AM CDT Linda Horn ACCOUNT INSTALLER HEMATOLOGY Performing Organization Address City/[facility]/ZIP Co de Phone Number [facility] [address] [place] [address], * POTASSIUM (10/26/2023 11:05 AM CDT) Pathologist [facility] POTASSIUM 5.1 3.5 - 5.1 mmol/L 10/26/2023 11:44 AM CDT [facility] Blood BLOOD SPECIMEN / Unknown Venipuncture / Unknown 10/26/2023 11:05 AM CDT 10/26/2023 11:16 AM CDT Taylor Vences RN CHEMISTRY Performing Organization Address City/[facility] Co de Phone [facility] LABORATORY [address] [place] [address], * SCAN-CARDIAC STRIP (10/26/2023 7:27 AM CDT) Scanner OTHER * SCAN-CARDIAC STRIP (10/25/2023 11:30 PM CDT) Scanner OTHER * SCAN-CARDIAC STRIP (10/25/2023 4:51 PM CDT) Scanner OTHER * SCAN-CARDIAC STRIP (10/25/2023 11:55 AM CDT) Scanner OTHER * (ABNORMAL) Hemoglobin (10/25/2023 7:27 AM CDT) Only the most recent of2 resultswithin the time period is included. HEMOGLOBIN 9.5(L) 12.0 - 16.0 g/dL 10/25/2023 8:01 AM CDT [facility] MCV 96 80 - 100 fL 10/25/2023 8:01 AM CDT [facility] Blood BLOOD SPECIMEN / Unknown Butterfly / Unknown 10/25/2023 7:27 AM CDT 10/25/2023 7:57 AM CDT Narrative [facility] - 10/25/2023 8:01 AM CDT Call if Hgb less than 10. Ad Vargas DO HEMATOLOGY [facility] [address] [place] [address], * SCAN-CARDIAC STRIP (10/25/2023 5:57 AM CDT) Scanner OTHER * SCAN-CARDIAC STRIP (10/24/2023 2:35 PM CDT) Scanner OTHER * PV OTHER PROCEDURE (10/24/2023 10:46 AM CDT) Anatomical Region Laterality Modality Other Narrative 10/24/2023 10:46 AM CDT Bandar Lomeli MD ? 10/24/2023 11:16 AM OPERATIVE REPORT SURGEON Bandra Lomeli MD TWX OPERATOR Anselmo Vargas MD (Fellow) ANESTHESIA General PREOPERATIVE [...] run off. INDICATIONS FOR PROCEDURE Marco A Whaley Robert is a ??68 y.o.-year-old presented with severe [...] I was present for the entire operation. TECHNICAL WRITING LEAD/MGR MEASURES We utilized approximately 24 cc of Optiray contrast and fluoroscopy time was 1.4 minutes (34.2 mGy). Bandar Lomeli MD CV IMAGING * (ABNORMAL) COMPREHENSIVE BLOOD GAS ARTERIAL (10/24/2023 10:40 AM CDT) PH, ARTERIAL 7.41 7.35 - 7.45 10/24/2023 10:40 AM T [facility] PCO2, ARTERIAL 46(H) 32 - 45 mmHg 10/24/2023 10:40 AM T [facility] PO2, ARTERIAL 200(H) 83 - 108 mmHg 10/24/2023 10:40 AM T [facility] HCO3, ARTERIAL 29(H) 21 - 28 mmol/L 10/24/2023 10:40 AM T [facility] BASE EXCESS, ARTERIAL 4.0(H) -2.0 - 3.0 10/24/2023 10:40 AM T [facility] O2 SATURATION, ARTERIAL 99(H) 94 - 98 % 10/24/2023 10:40 AM T [facility] PATIENT TEMPERATURE 37.0 Degrees C 10/24/2023 10:40 AM T [facility] COLLECTION SITE ARTERIAL LINE 10/24/2023 10:40 AM T [facility] HEMOGLOBIN,BLOO D GAS 8.7(L) 12.0 - 16.0 g/dL 10/24/2023 10:40 AM T [facility] SODIUM 132(L) 136 - 145 mmol/L 10/24/2023 10:40 AM T [facility] POTASSIUM 4.2 3.5 - 5.1 mmol/L 10/24/2023 10:40 AM CDT [facility] CHLORIDE 104 98 - 107 mmol/L 10/24/2023 10:40 AM CDT [facility] Blood BLOOD SPECIMEN / Unknown 10/24/2023 10:40 AM CDT 10/24/2023 10:40 AM CDT Bandar Lomeli MD CHEMISTRY Performing Organization Address City/[facility] Co de Phone Number [facility] [address] [place] [address], * (ABNORMAL) ACTIVATED CLOTTING TIME OFY217 ACT (10/24/2023 10:38 AM CDT) Only the most recent of3 resultswithin the time period is included. ACTIVATED CLOTTING TIME, POCT 249(H) 74 - 125 sec 10/24/2023 11:28 AM CDT [facility] Blood BLOOD SPECIMEN / Unknown 10/24/2023 10:38 AM CDT 10/24/2023 11:28 AM CDT Bandar Lomeli MD HEMATOLOGY Performing Organization Address [facility] Co de Phone Number [facility] [address] [place] [address], * ETT (10/24/2023 8:31 AM CDT) Narrative Taylor Gaona LIBRARIAN SPECIAL LIBRARY Student - 10/24/2023 8:31 AM CDT Taylro Gaona CRNA Student ? 10/24/2023 ??8:31 AM Procedure: ETT [...] RDERABLES * EKG (10/24/2023 6:41 AM CDT) Interpretation Normal sinus rhythm Left bundle branch block Abnormal ECG When compared with ECG of 02-FEB-2023 12:33, No significant change was found BEYOND NOW Ventricular Rate 76 BPM BEYOND NOW Atrial Rate 76 BPM BEYOND NOW P-R Interval 190 ms BEYOND NOW QRS Duration 142 ms BEYOND NOW QT 456 ms BEYOND NOW QTc 513 ms BEYOND NOW P [place] 79 degrees BEYOND NOW R [place] 21 degrees BEYOND NOW T [place] 85 degrees BEYOND NOW 10/24/2023 6:41 AM CDT 10/24/2023 1:37 PM CDT Narrative [facility] - 10/24/2023 1:37 PM CDT Test Indication: PREOP Fannie REESE EKG ORD Performing Organization Address City/[facility] Co de Phone Number [facility] NOW [place], [place] * Type and Screen (10/24/2023 6:40 AM CDT) ABORH O Rh Negative 10/24/2023 7:41 AM CDT [facility] ANTIBODY SCREEN Negative Negative 10/24/2023 7:41 AM CDT [facility]-CENTRAL LAB BLOOD BANK SPECIMEN EXPIRATION DATE/TIME 10/27/23 23:59 10/24/2023 7:41 AM CDT [facility] LAB BLOOD BANK Blood BLOOD SPECIMEN / Unknown Venipuncture / Unknown 10/24/2023 6:40 AM CDT 10/24/2023 6:51 AM CDT Fannie REESE BLOOD BANK Performing Organization Address City/[facility] de Phone Number [facility]-C[facility] LAB BLOOD BANK [address] [place] [address], * SCAN-CARDIAC STRIP (10/24/2023 12:00 AM CDT) [...] CDT ECHOCARDIOGRAM MARCO A JONES ?Accession#: ?? [id number] : ?1955 68 years Study Date: ?? 10/18/2023 1:06:17 PM Gender: F ? BP: ? 169/69 mmHg Height: 155.00 cm ? BSA: ?1.43 m? ? ? Weight: 47.00 kg ?Tech: ? MTS ?Referring MD: NAINA TURCIOS [facility] Patient Location: Outpatient. [...] . This study was interpreted by an [facility] accredited facility. ??Final ?? Procedure Note Carter Herman MD - 10/18/2023 ECHOCARDIOGRAM MARCO A JONES : 1955 68 years Study Date: 10/18/2023 1:06:17 PM Gender: F BP: 169/69 mmHg Height: 155.00 cm BSA: 1.43 m? ? ? Weight: 47.00 kg Tech: [facility] Referring MD: NAINA TURCIOS [facility] Location: MOBILE OP Patient Location: Outpatient. [...] . This study was interpreted by an [facility] accredited facility. Final Naina Turcios MD ECHO [...] artery due to calcified and noncalcified plaque, etyd-af-tzakaimw severity left Common femoral artery coral reef [...] For Patients: ??As a result of the 21st Century Cures [...] 70 percent stenosis around Maxx`s canal, and hhgtlyogyfvj29 percent multifocal stenosis of the popliteal artery. [...] iliac artery due to calcified andnoncalcified plaque, ojba-cv-virehnlz severity left Common femoral arterycoral reef plaque, [...] @ 10/09/2023 4:42:38 PM (Electronically Signed) Bandar Lomeli MD CT * (ABNORMAL) CREATININE,ISTAT (10/09/2023 3:48 PM CDT) CREATININE, POCT 0.90 0.57 - 1.11 mg/dL 10/09/2023 3:50 PM CDT [facility] Comment:Caution: Patients ta mariaelena Hydroxyurea have falsely increased iStat Creatinine results. Verify creatinine results ordering a Creatinine (74217.2) eGFR 70(L) >90 mL/min/1.7 3m2 10/09/2023 3:50 PM CDT [facility] Comment:As of 2021, eG FR is calculated by the CKD-EPI creatinine equation without race adjustment. eGFR can be influenced by muscle mass, exercise, and diet. The reported eGFR is an estimation only and is only applicable if the renal function is stable. Blood BLOOD SPECIMEN / Unknown 10/09/2023 3:48 PM CDT 10/09/2023 3:50 PM CDT Parisa REESE CHEMISTRY [facility] [address] [place] [address], * US ARTERIAL SEG W TOE PRESSURES (09/27/2023 8:16 AM CDT) Anatomical Region Laterality Modality LEGS Ultrasound 09/27/2023 7:18 AM CDT Narrative 09/27/2023 3:45 PM CDT VASCULAR ULTRASOUND REPORT MARCO A JONES Accession#: ?? [id number] : ?1955 Study Date: ?? 09/27/2023 7:18:54 AM Age: ?68 years ?? Tech: ? AMS Gender: F ?Referring MD: PARISA CALLAHAN Site: [facility] Vascular [facility] Study performed: ?Lower extremity resting SHANE, (bilateral). [...] Index +-----+ +--------+ +-----+ 0.60 ? 91 ?GAS APPLIANCE MECHANIC ?142 ? 0.94 +-----+ +--------+ +-----+ 0.68 ?103 ?DPA ?145 ? 0.96 +-----+ +--------+ +-----+ 0.22 ? 33 ? Digit 1 ?113 ? 0.75 +-----+ +--------+ +-----+ ROBB Johnson. Electronically signed on 09/27/2023 3:45:37 PM This study was performed and interpreted by a service accredited by the Intersocietal Accreditation Commission (IAC/Vascular), www.intersocietal.org/vascular Report generated by [employer]. ??Final ?? Procedure Note Radha Laguna MBBS - 09/27/2023 VASCULAR ULTRASOUND REPORT MARCO A JONES : 1955 Study Date: 09/27/2023 7:18:54 AM Age: 68 years Tech: AMS Gender: F Referring MD: PARISA CALLAHAN Site: [facility] Study performed: Lower extremity resting SHANE, (bilateral). [...] 150 Index +-----+ +--------+ +-----+ 0.60 91 GAS APPLIANCE MECHANIC 142 0.94 +-----+ +--------+ +-----+ 0.68 103 DPA 145 0.96 +-----+ +--------+ +-----+ 0.22 33 Digit 1 113 0.75 +-----+ +--------+ +-----+ ROBB Johnson. Electronically signed on 09/27/2023 3:45:37 PM This study was performed and interpreted by a service accredited by theIntersocietal Accreditation Commission (IAC/Vascular),www.intersocietal.org/vascular Report generated by [employer]. Final Parisa REESE US * US ARTERIAL LOWER EXTREMITY RIGHT (09/27/2023 8:16 AM CDT) Anatomical Region Laterality Modality Ultrasound 09/27/2023 7:32 AM CDT Narrative 09/27/2023 3:44 PM CDT VASCULAR ULTRASOUND REPORT MARCO A JONES Accession#: ?? [id number] : ?1955 Study Date: ?? 09/27/2023 7:32:28 AM Age: ?68 years ?? Tech: ? AMS Gender: F ?Referring MD: PARISA CALLAHAN Site: [facility] Vascular [facility] Study performed: ?Lower extremity duplex US, (right). [...] for comparison. FINDINGS: Elevated velocities at the FOOD AND NUTRITION TEACHER are consistent with a severe (75-99%) stenosis. Monophasic waveforms noted distally through out the RT LE. +--------+ + RIGHT ?? Velocity cm/s +--------+ + EIA DST ? 34 ? +--------+ + FOOD AND NUTRITION TEACHER DST ? 629 ? +--------+ + PFA ? 102 ? +--------+ + SFA PRX ? 224 ? +--------+ + SFA MID ? 72 ? +--------+ + SFA DST ? 44 ? +--------+ + OBDULIA PRX ? 53 ? +--------+ + OBDULIA DST ? 35 ? +--------+ + TPT ? 30 ? +--------+ + GAS APPLIANCE MECHANIC DST ? 27 ? +--------+ + ISIAH [...] Accreditation Commission (IAC/Vascular), www.intersocietal.org/vascular Report generated by [employer]. ??Final ?? Procedure Note Radha Laguna MBBS - 09/27/2023 VASCULAR ULTRASOUND REPORT MARCO A JONES : 1955 Study Date: 09/27/2023 7:32:28 AM Age: 68 years Tech: AMS Gender: F Referring MD: PARISA CALLAHAN Site: [facility] Study performed: Lower extremity duplex US, (right). [...] for comparison. FINDINGS: Elevated velocities at the FOOD AND NUTRITION TEACHER are consistent with a severe (75-99%)stenosis. Monophasic waveforms noted distally through out the RT LE. +--------+ + RIGHT Velocity cm/s +--------+ + EIA DST 34 +--------+ + FOOD AND NUTRITION TEACHER DST 629 +--------+ + PFA 102 +--------+ + SFA PRX 224 +--------+ + SFA MID 72 +--------+ + SFA DST 44 +--------+ + OBDULIA PRX 53 +--------+ + OBDULIA DST 35 +--------+ + TPT 30 +--------+ + GAS APPLIANCE MECHANIC DST 27 +--------+ + ISIAH DST 16 [...] theIntersocietal Accreditation Commission (IAC/Vascular),www.intersocietal.org/vascular Report generated by [employer]. Final Parisa REESE US * XR SHOULDER [...] Patients: As a result of the s , medical imagingexams and procedure reports are released [...] Patients: ??As a result of the s , medical imaging exams and procedure reports are [...] mg/L 09/21/2023 11:32 PM CDT [facility] CREATININE,URIN E 0.76 g/L 09/21/2023 11:32 PM CDT [facility] ALBUMIN TO CREATININE RATIO,RAND UR 20.9 <30.0 mg/g creat 09/21/2023 11:32 PM CDT [facility] Urine URINE SPECIMEN / Unknown Non-Blood / Unknown 09/21/2023 1:46 PM CDT 09/21/2023 1:46 PM CDT Narrative [facility] - 09/21/2023 11:32 PM CDT If Albumin to Creatinine Ratio is elevated, consider the following: ? Elevations seen with incipient nephropathy associated ?? with diabetes mellitus or hypertension. Stress, exercise,hematuria, ?? and urinary tract infection may also produce elevated results. If clinically indicated, confirm with ?24 Hour Albumin to Creatinine Ratio. ?? Parisa REESE URINE [facility] [address] [place] [address], * (ABNORMAL) C-REACTIVE PROTEIN (09/21/2023 1:35 PM CDT) C-REACTIVE PROTEIN 1.0(H) <0.5 mg/dL 09/21/2023 10:[address] [facility] Blood BLOOD SPECIMEN / Unknown Venipuncture / Unknown 09/21/2023 1:35 PM CDT 09/21/2023 1:36 PM CDT Parisa REESE CHEMISTRY Performing Organization Address [facility] Co de Phone Number [facility] [address] [address], * (ABNORMAL) HEMOGLOBIN A1C MONITORING (POCT) (09/21/2023 1:35 PM CDT) HEMOGLOBIN A1C MONITORING (POCT) 9.8(H) <=6.4 % 09/21/2023 1:55 PM CDT [facility] Blood BLOOD SPECIMEN / Unknown Venipuncture / Unknown 09/21/2023 1:35 PM CDT 09/21/2023 1:36 PM CDT Narrative [facility] - 09/21/2023 1:55 PM CDT ? (<=6.9%) [...] Untreated Anemias, Splenectomy ? Parisa REESE CHEMISTRY Performing Organization Address City/[facility]/ZIP Co de Phone Number [facility] [address] [place] [address], [place] [phone] * XR MAMMO CASSIE BILAT SCREEN (11/09/2021 [...] care provider. XR MAMMO CASSIE BILAT SCREEN [[id number]] CLINICAL HISTORY: ??This is an asymptomatic 66 y.o. patient. INDICATION FOR EXAM: Mammogram Screening. TECHNIQUE: CC & MLO views were obtained. ??This study was evaluated with the assistance of Computer-Aided Detection. Breast Tomosynthesis was used in interpretation. COMPARISON FILM: Yes 01/23/17 [email or web address] 09/10/10 [email or web address] FINDINGS: ??The breasts are extremely dense, which [...] Alendronate (Fosamax) medication treatment. Destiny Medellin PA-C [facility] 11/15/2021 Narrative 11/15/2021 8:42 AM CDT For Patients: Results are automatically released to your [facility] ([employer]) account once available, in compliance with federal regulations. This means that you may see your results before your provider has had a chance to review them. Please allow 2-3 business days for your provider to comment on the results. XR DXA Bone Mineral Density (BMD) EXAM LOCATION: [facility] [address] [facility] [address] PATIENT NAME: Marco A Jones DATE OF [...] two scanners are made by the same factorer. PROCEDURE: Dual-energy x-ray absorptiometry performed with routine [...] REFLEX MEASURED LDL (11/02/2021 1:10 PM CDT) Pathologist [facility] CHOLESTEROL,TOTAL 121 100 - 199 mg/dL 11/02/2021 11:38 PM CDT [facility] TRIGLYCERIDES 91 <150 mg/dL 11/02/2021 11:38 PM CDT [facility] HDL CHOLESTEROL 45 >40 mg/dL 11:38 PM CDT [facility] NON-HDL CHOLESTEROL 76 <145 mg/dl 11/02/2021 11:38 PM T [facility] CHOL/HDL RATIO 2.69 <4.50 11/02/2021 11:38 PM CDT [facility] LDL CHOLESTEROL 58 <=130 mg/dL 11/02/2021 11:38 PM CDT [facility] VLDL CHOLESTEROL 18 <=30 mg/dL 11/02/2021 11:38 PM T [facility] PROVIDER ORDERED STATUS RANDOM 11/02/2021 11:38 PM T [facility] Blood BLOOD SPECIMEN / Unknown Venipuncture / Unknown 11/02/2021 1:10 PM CDT 11/02/2021 1:10 PM CDT Naina Turcios MD CHEMISTRY [facility] LABORATORY [address] [place] [address], * OCCULT BLOOD IFOBT STOOL (11/29/2018 3:36 PM CDT) STOOL BLOOD ,IFOBT Negative Negative 12/07/2018 9:42 AM CDT [facility] Stool STOOL SPECIMEN / Unknown Non-Blood / Unknown 11/29/2018 3:36 PM CDT 12/06/2018 3:36 PM CDT Naina Turcios MD LABORATORY [facility] [address] [place] [address], * ANTI HCV (01/04/2010 1:58 PM CDT) ANTI HCV Non-reacti ve [facility] Blood specimen (specimen) BLOOD SPECIMEN / Unknown 01/04/2010 1:58 PM CDT 01/04/2010 1:46 PM CDT Naina Turcios MD SEND OUTS [facility] INTERNAL ZIP [address] [place] [phone] from Last 3 Months or Most Recently [...] Preferences, Provider to review later Care Teams Real Estate Services Administrator Relationship Specialty Start Date End Date Parisa Callahan PA [address] [place] [address] PCP - General Physician Livestock Trucker 05/16/23 [place] [place] [address] 02/04/23 Raegan Dumont COTA [address] [place], [place] [phone] Occupational Therapy 05/05/23
--- OUTSIDE RECORDS SUMMARY | 2023-12-21 14:38 | XMS_ITS | Clinical Summary ---
Author Organization [facility] Address [address] [place] [address] Care Team Providers Care Professor Of Visual Arts Name Role Phone Elsewhere, Pcp Primary Care Provider Unavailabl e Source Comments Patient records contain information from all sites at [facility]. For routine questions regarding patient records, call [phone] during business hours, M-F 8:00 AM - 5:00 PM Central Time. Record requests for emergency care only can be directed to [phone] at any time.[facility] Allergies Active Allergy Reactions Criticality Noted [...] Right 10/31/2023 Atherosclerotic Heart Diseas e Of [place] Coronary Artery Without Angina Pectoris 09/15/2022 Major Depressive Disorder, Recurrent, Unspecifie d 08/03/2021 Fracture Radius Colles Closed Initial Right 05/03 Overview: Added automatically from request for surgery [id number] Osteoporosis 01/23/2018 Hypertension NOS Diabetes Mellitus Type 2 Encounters Date Type Department Care Team Description 10/31/2023 1:36 PM CDT - 10/31/2023 4:28 PM CDT Emergency [facility] [address] [place] [address] [place] [address] Isidoro Parker APRN, C.N.P., D.N.P. Swelling Leg [...] history exists Medical Devices Implanted Type Area Powdered Sugar Pulverizer Operator Device Identifier Shelf Expiration Date Model / Serial / Lot Plt Wrst Dvr Rt 3h 24.4x51.3 - [id number] Implanted:Qty : 1 on 05/26/2021 by Jorden Tineo M.D. at [facility] Hardware e.g. pins/screws/ rods [employer] [id number] / / 07.05.[address] Ss Sngl 1.6x127 - [id number] Implanted:Qty : 1 on 05/26/2021 by Jorden Tineo M.D. at [facility] Hardware e.g. pins/screws/ rods [employer] [id number] / / 07.05.20. 319 Scrw Dvr Fthrd 3.5x12 - [id number] Implanted:Qty : 2 on 05/26/2021 by Jorden Tineo M.D. at [facility] Hardware e.g. pins/screws/ rods [employer] [id number] / / 07.05.20. 319 Peg Fix Dvr Pthrd Lng 2.5x22 - [id number] Implanted:Qty : 3 on 05/26/2021 by Jorden Tineo M.D. at [facility] Hardware e.g. pins/screws/ rods Right: Wrist [employer] [id number] / / 07.05.20. 319 Peg Fix Dvr Pthrd Lng 2.5x16 - [id number] Implanted:Qty : 1 on 05/26/2021 by Jorden Tineo M.D. at [facility] Hardware e.g. pins/screws/ rods Right: Wrist [employer] [id number] / / 07.05.20. 319 Peg Fix Dvr Smth Lng 2.0x18 - [id number] Implanted:Qty : 3 on 05/26/2021 by Jorden Tineo M.D. at [facility] Hardware e.g. pins/screws/ rods Right: Wrist [employer] [id number] / / 07.05.20. 319 Scrw Dvr Fthrd 3.5x13 - [id number] Implanted:Qty : 1 on 05/26/2021 by Jorden Tineo M.D. at [facility] Hardware e.g. pins/screws/ rods [employer] [id number] / 07.05.20. 319 Procedures Procedure Name Priority [...] and management can be found on the [employer] site. Link [email or web address] Procedure Note Pati Blankenship M.D. - 10/31/2023 [...] thrombosis and management can be found on theAskMayoExpert site. [email or web address] 1725 IMPRESSION: Negative for acute DVT. The calf veins are suboptimally visualized due toedema in the soft tissues. Isidoro Parker APRN, C.N.P., EvelynNTamP. IMG US PROCEDURES * US Lower Extremity [...] Recently Relevant to Health Maintenance Care Teams Professor Of Visual Arts Relationship Specialty Start Date End Date Elsewhere, Pcp PCP - General Family Medicine 03/11/21
--- OUTSIDE RECORDS SUMMARY | 2023-12-21 14:38 | XMS_ITS | Patient Health Record ---
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, not intractable, without status epilepticus (G40.009) Active confirmed Localization- related epilepsy (412336747) Encounters Encounter Location Date Provider Diagnosis [facility] [address] [facility] [address] [place] [address] 01/31/2023 Yasmeen Jacobs PLAN OF TREATMENT No Information Insurance Providers Payer Name Payer Address Payer Phone Subscriber Number Group Number Insured Name Patient Relationship to Insured Coverage Start Date Coverage End Date [facility] [id number] [address] [address] [place], [place] [id number] Bella Jones Self - patient is the insured MEDICAL (GENERAL) HISTORY Medical History History ICD Code Essential hypertension Osteoporosis Tobacco use disorder Type I diabetes mellitus Contracture of palmar fascia Coronary atherosclerosis of unspecified type of vessel, iliamna or graft Depressive disorder Hyposmolality and/or hyponatremia Pure hypercholesterolemia Reflux esophagitis Surgical History Surgery Date(Month/Year) Appendectomy Cholecystectomy Tubal ligation Spine surgery Trigger finger release Conization cervix Hospitalization History Reason Date(Month/Year) Seizure related hospitalizations: [facility], 02/03/2019 - 02/06/2019
--- OUTSIDE RECORDS SUMMARY | 2023-12-21 14:39 | XMS_ITS | Encounter Summary ---
Author Organization [facility] Address [address] [place] [address] Care Team Providers Care Health Equipment Servicer Name Role Phone Elsewhere, Pcp Primary Care Provider Unavailabl e Encounter Details Date Type Department Care Team (Latest Contact Info) Description 09/18/2023 Clinical Communication Department of Rehabilitation Services in [address] [phone] Felipe Saravia, P.TTam [address] [place] [address] [phone] Social History Tobacco Use Types Packs/Day Years [...] on filedocumented in this encounter Care Teams Health Equipment Servicer Relationship Specialty Start Date End Date Elsewhere, Pcp PCP - General Family Medicine 03/11/21 documented as of this encounter
--- OUTSIDE RECORDS SUMMARY | 2023-12-21 14:39 | XMS_ITS | Encounter Summary ---
Author Organization [facility] Address [address] [place] [address] Care Team Providers Care Post Office Clerk Name Role Phone Elsewhere, Pcp Primary Care Provider Unavailabl e Reason for Visit * Physical Therapy (Routine) - Canceled Specialty Diagnoses / Procedures Referred By Kashmir t Referred To Contact Diagnoses Debility Procedures PT Ongoing treatment Neno Call M.D. [address] [place] [phone] [facility] Region Referral ID Status Reason Start Date Expiration Date V isits Requested Visits Authorized [id number] Canceled 08/16/2023 07/02/2024 40 40 Encounter Details Date Type Department Care Team (Late st Contact Info) Description 09/18/2023 1:45 PM CDT Clinical Support Department of Rehabilitation Services in [address] [phone] Neno Call M.D. [address] [place] [phone] Felipe Saravia P.T. [address] [place] [address] [phone] Debility Social History Tobacco Use Types Packs/Day [...] Debility documented in this encounter Care Teams Post Office Clerk Relationship Specialty Start Date End Date Elsewhere, Pcp PCP - General Family Medicine 03/11/21 documented as of this encounter
--- OUTSIDE RECORDS SUMMARY | 2023-12-21 14:39 | XMS_ITS | Encounter Summary ---
Author Organization [facility] Address [address] [place] [address] Care Team Providers Care Sponsorship Manager Name Role Phone Elsewhere, Pcp Primary Care Provider [facility] Reason for Visit * Reason Comments Foot Infection 68 yo presents to [facility] ED via private vehicle with c/o bilateral foot diabetic sores that have been present for last couple months but reports pain has been worsening over the last week. Patient is diabetic. Encounter Details Date Type Department Care Team ([facility] st Contact Info) Description 09/13/2023 9:13 PM CDT - 09/13/2023 9:47 PM CDT Emergency [facility] [address] [place] [address] [phone] Serafin Davidson, PTamA.-C. [address] [place] [address] [phone] Pain Foot Right (Primary Dx) Discharge Disposition: [...] sent through Care Everywhere. * Foot Pain (Israeli) documented in this encounter Medications at Time [...] Primary documented in this encounter Care Teams Sponsorship Manager Relationship Specialty Start Date End Date Elsewhere, Pcp PCP - General Family Medicine 03/11/21 documented as of this encounter
--- OUTSIDE RECORDS SUMMARY | 2023-12-21 14:39 | XMS_ITS | Encounter Summary ---
Author Organization [facility] Address [address] [place] [address] Care Team Providers Care Cylinder Machine Operator Pulp Drier Name Role Phone Elsewhere, Pcp Primary Care Provider Unavailabl e Reason for Visit * Reason Comments Joint Swelling Knee swelling to rig ht. 02/09 pain Encounter Details Date Type Department Care Team (Late st Contact Info) Description 10/31/2023 1:36 PM CDT - 10/31/2023 4:28 PM CDT Emergency [facility] [address] [place] [phone] Isidoro Parker APRN, C.N.P., D.N.P. [address] [place] [address] Swelling Leg Right (Primary Dx) [...] on this leg. Thank you for utilizing [facility] for your care! documented in [...] Per chart review, recent surgical procedure at [facility]. Please see the hospital discharge below. BRIEF [...] 03 with imaging. History provided by: Patient animal stunner needed/used: no REVIEW OF SYSTEMS Constitutional: Negative [...] Recurrent, Unspecified (HCC) Atherosclerotic Heart Disease Of [place] Coronary Artery Without Angina Pectoris Swelling Leg [...] FIXATION WRIST-Right; Surgeon: Jorden Tineo M.D.; Location: [facility] OR Family Reviewed in Medical Record Social [...] to peripheral arterial disease. This happened at [facility]. She states she woke up this morning [...] with vascular surgery tomorrow. Isidoro Parker, DNP, BULK PALLET BUILDER, REFINING SUPERVISOR-C, AGACNP-BC, ENP-C Emergency Medicine Isidoro Parker APRN, [...] and management can be found on the [employer] site. Link [email or web address] Procedure Note Pati Blankenship M.D. - 10/31/2023 [...] thrombosis and management can be found on the[employer] site. [email or web address] 1725 IMPRESSION: Negative for [...] Right documented in this encounter Care Teams Cylinder Machine Operator Pulp Drier Relationship Specialty Start Date End Date Elsewhere, Pcp PCP - General Family Medicine 03/11/21 documented as of this encounter
== END 2023-12-21 14:37 | disposition home or self-care (01) ==
LOC: WOUND 14:36
PROVIDERS: PCP Physician Assistant; Visit Provider Family Medicine
DX: E10.622 Type 1 diabetes mellitus with other skin ulcer (principal); L97.828 Non-pressure chronic ulcer of other part of left lower leg with other specified severity; Z79.4 Long term (current) use of insulin
CPT/HCPCS: 11042

== ENCOUNTER 2023-12-28 14:26 | Outpatient (CLI) | payer MEDICARE, SELFPAY ==
--- OUTSIDE RECORDS SUMMARY | 2023-12-28 14:28 | XMS_ITS | Patient Health Record ---
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, not intractable, without status epilepticus (G40.009) Active confirmed Localization- related epilepsy (214943430) Encounters Encounter Location Date Provider Diagnosis [facility] [address] [facility] [address] [place] [address] 01/31/2023 Yasmeen Jacobs PLAN OF TREATMENT No Information Insurance Providers Payer Name Payer Address Payer Phone Subscriber Number Group Number Insured Name Patient Relationship to Insured Coverage Start Date Coverage End Date [facility] [id number] [address] [address] [place], [place] [id number] Bella Jones Self - patient is the insured MEDICAL (GENERAL) HISTORY Medical History History ICD Code Essential hypertension Osteoporosis Tobacco use disorder Type I diabetes mellitus Contracture of palmar fascia Coronary atherosclerosis of unspecified type of vessel, [place] or graft Depressive disorder Hyposmolality and/or hyponatremia Pure hypercholesterolemia Reflux esophagitis Surgical History Surgery Date(Month/Year) Appendectomy Cholecystectomy Tubal ligation Spine surgery Trigger finger release Conization cervix Hospitalization History Reason Date(Month/Year) Seizure related hospitalizations: [facility], 02/03/2019 - 02/06/2019
--- OUTSIDE RECORDS SUMMARY | 2023-12-28 14:29 | XMS_ITS | Clinical Summary ---
Author Organization [employer] Formerly [facility] Address [place], [place] [address] Care Team Providers Care Clinical Informatics Strategist Name Role Phone [facility] Mauri Bazzi Unavailable Raegan Dumont Unavailable [phone] Parisa Callahan Primary Care Provider [phone] Allergies Active Allergy Reactions Criticality Noted Date [...] daily. 30 mL 1 09/21/19 24 Active gabapentin (NEURONTIN) 600 mg tabletIndications: [...] type, unspecified whether angina present, unspecified whether lac vie[place] or transplanted heart,Cardiomyopat hy, unspecified type (HC) TAKE 1 AND 1/2 TABLETS BY MOUTH ONCE DAILY 135 Tablet 3 11/23/19 24 Active atorvastatin (LIPITOR) 20 mg tabletIndications: Hyperlipidemia LDL goal <100 Take 1 Tablet (20 mg) by mouth at bedtime. 90 Tablet 1 12/23/19 Active atorvastatin (LIPITOR) 20 mg tabletIndications: Hyperlipidemia LDL goal <100 TAKE 1 TABLET BY MOUTH AT BEDTIME 100 Tablet 10/11/19 024 Discontinued Active Problems Problem Noted Date Diagnosed Date [...] 02/02/2023 09/23/2023 Atherosclerotic heart diseas e of [place] coronary artery without angina pectoris 09/15/2022 09/23/2023 Protein-calorie malnutrition 08/03/2021 09/23/2023 Osteomyelitis of great toe of right foot 08/03/2021 09/23/2023 Depression, recurrent 08/03/20212023 DIABETES 05/24/2002 09/23/2023 Encounters Date Type Department Care Team Description 12/22/2023 Refill [facility] [address] [place] [address] Linsey Andrew MD Refill Request (Atorvastatin) 12/05/2023 1:45 PM CDT Ancillary Procedure [facility] [address] [place] [address] 12/05/2023 12:50 PM CDT Office Visit [facility] [address] [place] [address] Parisa Callahan PA Follow Up (Wound on left leg) 12/04/2023 3:00 PM CDT Office [facility] [address] [place] [address] Bandar Lomeli MD CV Vascular Est (1 month Follow up: s/p Right femoral endarterectomy with bovine patch 10/24/2023. US SHANE & aorta prior to OV) 12/04/2023 12:12 PM CDT - 12/04/2023 11:59 PM CDT Hospital Encounter [facility] [address] [place] [address] Linsey Andrew MD Cardiomyopathy, unspecified type (HC); Chronic chest pain with high risk for CAD; Claudication of both lower extremities (HC); PVD (peripheral vascular disease) with claudication (HC) 12/04/2023 Travel 11/30/2023 Telephone [facility] [address] [place] [address] Parisa Callahan PA FOLLOW UP (SORE ) 11/22/[address] [facility] [address] [facility] [address] [place] [address] Linsey Andrew MD Refill Request (Metoprolol Succinate) 11/21/2023 Refill [facility] [address] [place] [address] Parisa Callahan PA Refill Request (HYDROcodone-acetamin ophen (5-325 mg/tablet)/) 11/20/2023 1:10 PM CDT Office Visit [facility] [address] [place] [address] Parisa Callahan PA Follow Up (Recheck wound and foot) 11/20/2023 Telephone [facility] [address] [place] [address] Parisa Callahan PA Medication Management (Medline Gelatein 20 High protein gelatin- 4 fluid ounce cups-Eat 1 serving (4 oz) daily. /) 11/20/2023 Travel 11/14/[address] [facility] [address] [place] [address] Dov Willard MD Refill Request (Clopidogrel) 11/09/2023 1:30 PM CDT Office Visit [facility] [address] [facility] [address] [place] [address] Linsey Andrew MD Follow Up (F/u visit. Recent ER visit for R leg swelling./Pt reports feeling ok. /Discuss leg swelling in pain) 11/09/2023 Travel 10/31/2023 Telephone [facility] [address] [place] [address] Parisa Callahan PA Questions; Concerns 10/31/2023 Nurse Triage [facility] [address] [place] [address] Parisa Callahan PA Post-op 10/30/2023 10:30 AM CDT Office Visit [facility] [address] [place] [address] Parisa Callahan PA Hospital F/U (VASCULAR SURGERY) 10/30/2023 Refill [facility] [address] [place] [address] Parisa Callahan PA Refill Request (Freestyle Twyla 14 Day Sensor) 10/30/2023 Travel 10/27/2023 Patient Outreach [facility] [address] [place] [address] Jacki Hernandez, RN Hospital F/U (LACE 59); Primary RN Care Management 10/24/2023 7:57 AM CDT Anesthesia Event [facility] [address] [place] [address] Caryn Justin MD Hare, Kelly J., JAVA SDET Student 10/24/2023 7:45 AM CDT - 10/24/2023 11:01 AM CDT Surgery [facility] [address] [place] [address] Bandar Lomeli MD DIAGNOSTIC ANGIOGRAM. 10/24/2023 6:04 AM CDT - 10/26/2023 2:41 PM CDT Hospital Encounter [facility] [address] [place] [address] Bandar Lomeli MD Post-op pain (Primary Dx) Discharge Disposition: Home Self Care 10/23/2023 8:50 AM CDT Preop Visit [facility] [address] [place] [address] Parisa Callahan PA Preoperative Exam ([facility]-Dr. Lomeli-10/24/23-vas cular surgery) 10/23/2023 Travel 10/18/2023 1:00 PM CDT Ancillary Procedure [facility] [address] [place] [address] 10/17/2023 3:15 PM CDT Office Visit [facility] [address] [place] [address] Huey Bal DPM Follow Up (Bilateral foot pain) 10/17/2023 Travel 10/17/2023 Refill [facility] [address] [place] [address] Parisa Callahan PA Refill Request (Gabapentin 600mg tablets) 10/17/2023 Refill [facility] [address] [place] [address] Naina Turcios MD Refill Request (Lacosamide) 10/11/[address] [facility] [address] [place] [address] Bandar Lomeli MD Surgery Scheduled 10/11/[address] [facility] [address] [place] [phone] Dov Willard MD Refill Request (Atorvastatin) 10/10/2023 Orders Only [facility] Scanner 1 scan: (1-Ord) [facility], CHEST 1 VIEW PORTABLE, 10/10/2023 10/10/2023 Refill [facility] [address] [place] [address] Lakisha Mcclure MD Refill Request 10/10/[address] [facility] [address] [place] [address] Bandar Lomeli MD 10/09/2023 3:30 PM CDT Ancillary Procedure [facility] [address] [place] [address] 10/09/2023 3:15 PM CDT Orders Only [facility] [address] [place] [address] Lab, [facility] 10/09/2023 1:00 PM CDT Office [facility] [address] [place] [address] Bandar Lomeli MD CV Vascular New ([place] Consult; lower extremity PAD. Referred by HUGH Oseguera, all records in EPIC. CTA not needed per Dr. Lomeli, U/Ss available in MARVIN) 10/09/2023 Travel 10/04/[address] [facility] [address] [place] [address] Bandar Lomeli MD Referral 09/29/[address] [facility] [address], [place] [address] Edson Price MD Referral 09/28/2023 Orders Only [facility] [address], [place] [address] Fannie Rubin PA <No scans attached> 09/28/2023 Telephone [facility] [address] [place] [address] Parisa Callahan PA Results 09/28/2023 Orders Only [facility] [address] [place] [address] Parisa Callahan PA <No scans attached> 09/27/2023 7:06 AM CDT - 09/27/2023 11:59 PM CDT Hospital Encounter [facility] [address] [place] [address] Parisa Callahan PA Claudication of both lower extremities (HC) 09/27/2023 Travel from Last 3 Months Immunizations Name Administration [...] Date Smoking Tobacco: Every Day Cigarettes 0.3 31 Started: 01/10/1993 Smokeless Tobacco: Never Tobacco Cessation:Ready [...] for age 45-75 11/02/2022 11/02/2021 (Completed o [facility]), 11/29/2018 Medicare Wellness [...] 01/23/2018, 03/05/1996 Medical Devices Implanted Type Area Airplane Cabin Attendant Device Identifier Shelf Expiration Date Model / Serial / Lot Tissue Pericardium 0.8x8cm Xenosure - [id number] Implanted:Qty: 1 on 10/24/2023 by Bandar Lomeli MD at [facility] Cv Implants Right: Femoral Artery [employer] 03/30/2029 0.8P8 / / [id number] Procedures Procedure Name Priority Date/Time Associated Diagnosis [...] 10/26/2023 8:10 AM CDT SCAN-CARDIAC STRIP 10/26/2023 7: 27 AM CDT SCAN-CARDIAC STRIP 10/25/2023 11:30 PM CDT GLUCOSE METER Timed 10/25/2023 9:36 PM CDT GLUCOSE METER Timed 10/25/2023 5:31 PM CDT GLUCOSE METER Timed 10/25/2023 5:08 PM CDT SCAN-CARDIAC STRIP 10/25/2023 4: 51 PM CDT SCAN-CARDIAC STRIP 10/25/2023 11:55 AM CDT GLUCOSE METER Timed 10/25/2023 11:22 AM CDT HEMOGLOBIN Early AM 10/25/2023 7:27 AM CDT BASIC METABOLIC PANEL Early AM 10/25/2023 7:27 AM CDT GLUCOSE METER Timed 10/25/2023 7:24 AM CDT SCAN-CARDIAC STRIP 10/25/2023 5: 57 AM CDT GLUCOSE METER Timed 10/24/2023 9:01 PM CDT GLUCOSE METER Timed 10/24/2023 6:01 PM CDT GLUCOSE METER Timed 10/24/2023 2:52 PM CDT SCAN-CARDIAC STRIP 10/24/2023 2: 35 PM CDT GLUCOSE METER Timed 10/24/2023 12:06 PM CDT PV OTHER PROCEDURE Routine 10/24/2023 10:46 AM CDT COMPREHENSIVE BLOOD GAS ARTERIAL Timed 10/24/2023 10:40 AM CDT [facility] ACTIVATED CLOTTING TM CV Timed 10/24/2023 10:38 AM CDT GLUCOSE METER Timed 10/24/2023 10:35 AM CDT [facility] ACTIVATED CLOTTING TM CV Timed 10/24/2023 9:46 AM CDT GLUCOSE METER Timed 10/24/2023 9:44 AM CDT [facility] ACTIVATED CLOTTING TM CV Timed 10/24/2023 9:09 AM CDT GLUCOSE METER Timed 10/24/2023 8:52 AM CDT ENDOTRACHEAL TUBE Routine 10/24/2023 8:3 1 AM CDT ANGIOGRAM FOR VASCULAR OR PROCEDURE 10/24/2023 7:42 AM CDT PAD, FOOT WOUND Case Notes RIGHT FEMORAL ARTERY ENDARTERECTOMY, POSS RIGHT ILIAC INTERVENTION, POSS RIGHT LEG INTERVENTION ENDARTERECTOMY FEMORAL ARTERY 10/24/2023 7:42 AM CDT PAD, FOOT WOUND Case Notes RIGHT FEMORAL ARTERY ENDARTERECTOMY, POSS RIGHT ILIAC INTERVENTION, POSS RIGHT LEG INTERVENTION [facility] KIT PR5 Routine 10/24/2023 7:28 AM CDT [facility] DRSG PR5 Routine 10/24/2023 7:28 AM CDT [facility] DRSG PR1 Routine 10/24/2023 7:28 AM CDT [facility] TUBING PR20 Routine 10/24/2023 7:28 AM CDT [facility] TUBING PR1 Routine 10/24/2023 7:28 AM CDT [facility] ANES ARTERIAL CATH FOR SAMPLE MONITOR TRANS Routine 10/24/2023 7:28 AM CDT [facility] ANES US GUIDE FOR VASC ACCESS Routine 10/24/2023 7:28 AM CDT [facility] CATH PR5 Routine 10/24/2023 7:28 AM CDT GLUCOSE METER Timed 10/24/2023 7:07 AM CDT EKG 12 LEAD Preop 10/24/2023 6:41 AM CDT TYPE & SCREEN Preop 10/24/2023 6:40 AM CDT BASIC METABOLIC PANEL Preop 10/24/2023 6:40 AM CDT CBC W PLT NO DIFF Preop 10/24/2023 6:4 0 AM CDT SCAN-CARDIAC STRIP 10/24/2023 12:00 AM [...] Claudication of both lower extremities (HC) XR MAMMO CASSIE BILAT SCREEN Routine [...] 3 VIEWS RIGHT (12/05/2023 1:46 PM CDT) Anatomical Region Laterality Modality FEET, [...] ULTRASOUND REPORT MARCO A JONES Accession#: ?? [id number] : ?1955 Study Date: ?? 12/04/2023 1:59:17 PM Age: ?68 years ?? Tech: ? CAR Gender: F ?Referring MD: BANDAR LOMELI Site: [facility] Center Study performed: ?Lower extremity [...] Phasicity ? +--------+ + + + +--------+-----+ PROFESSIONAL WRESTLER PRX ? 138 ? multiphasic ? +--------+ + + + +--------+-----+ PROFESSIONAL WRESTLER DST ? 52 ? multiphasic ? +--------+ [...] multiphasic ? +--------+ + + + +--------+-----+ FREELANCE WEB DESIGNER DST ? 41 ? monophasic ? +--------+ + + + +--------+-----+ DPA ? 31 ? monophasic ? +--------+ + + + +--------+-----+ + + + + LEFT ? Velocity cm/s Phasicity ?? + + + + PROFESSIONAL WRESTLER PRX ? 96 ? multiphasic + + + + PROFESSIONAL WRESTLER DST ? 88 ? multiphasic + + [...] 43 ? multiphasic + + + + FREELANCE WEB DESIGNER DST ? 43 ? multiphasic + + [...] ? Index +-----+ +--------+ +-----+ 0.87 ?100 ?FREELANCE WEB DESIGNER ?110 ? 0.96 +-----+ +--------+ +-----+ 0.97 ?111 ?DPA ?108 ? 0.94 +-----+ +--------+ +-----+ 0.46 ? 53 ? Digit 1 ?63 ? 0.55 +-----+ +--------+ +-----+ Vipin Aggarwal MD. Electronically signed on 12/04/2023 3:41:37 PM This study was performed and interpreted by a service accredited by the Intersocietal Accreditation Commission (IAC/Vascular), [email or web address] Report generated by [employer]. ??Final ?? Procedure Note Vipin Aggarwal MD - 12/04/2023 VASCULAR ULTRASOUND REPORT MARCO A JONES : 1955 Study Date: 12/04/2023 1:59:17 PM Age: 68 years Tech: CAR Gender: F Referring MD: BANDAR LOMELI Site: [facility] V[facility] Center Study performed: Lower extremity [...] Phasicity Phasicity +--------+ + + + +--------+-----+ PROFESSIONAL WRESTLER PRX 138 multiphasic +--------+ + + + +--------+-----+ PROFESSIONAL WRESTLER DST 52 multiphasic +--------+ + + + [...] 68 multiphasic +--------+ + + + +--------+-----+ FREELANCE WEB DESIGNER DST 41 monophasic +--------+ + + + +--------+-----+ DPA 31 monophasic +--------+ + + + +--------+-----+ + + + + LEFT Velocity cm/s Phasicity + + + + PROFESSIONAL WRESTLER PRX 96 multiphasic + + + + PROFESSIONAL WRESTLER DST 88 multiphasic + + + + PFA 64 multiphasic + + + + SFA PRX 112 multiphasic + + + + SFA PRX MID 100 multiphasic + + + + SFA MID 82 multiphasic + + + + SFA DST 134 multiphasic + + + + OBDULIA PRX 54 multiphasic + + + + OBDULIA DST 43 multiphasic + + + + FREELANCE WEB DESIGNER DST 43 multiphasic + + + + DPA 25 multiphasic + + + + Criteria: Stenosis V. Ratio Mild <50% <2.0 Moderate 50-74% > or = 2.0 Severe 75-99% > or = 4.0 Occluded 100% no detectable flow Pressures +-----+ +--------+ +-----+ RIGHT (mmHg) LEFT (mmHg) +-----+ +--------+ +-----+ Index 115 Brachial 114 Index +-----+ +--------+ +-----+ 0.87 100 FREELANCE WEB DESIGNER 110 0.96 +-----+ +--------+ +-----+ 0.97 111 DPA 108 0.94 +-----+ +--------+ +-----+ 0.46 53 Digit 1 63 0.55 +-----+ +--------+ +-----+ Vipin Aggarwal MD. Electronically signed on 12/04/2023 3:41:37 PM This study was performed and interpreted by a service accredited by theIntersocietal Accreditation Commission (IAC/Vascular),[email or web address] Report generated by [employer]ametrics. Final Bandar Lomeli MD US * US AORTA ILIACS IVC WITH DUPLEX (12/04/2023 1:21 PM CDT) Anatomical Region Laterality Modality AORTA, Abdomen Ultrasound 12/04/2023 1:17 PM CDT Narrative 12/04/2023 3:32 PM CDT VASCULAR ULTRASOUND REPORT MARCO A JONES Accession#: ?? [id number] : ?1955 Study Date: ?? 12/04/2023 1:17:26 PM Age: ?68 years ?? Tech: ? CAR Gender: F ?Referring MD: BANDAR LOMELI Site: [facility] V[facility] Center Study performed: ?Aorta Indication [...] Accreditation Commission (IAC/Vascular), [email or web address]/vascular Report generated by [employer]idametrics. ??Final ?? Procedure Note Vipin Aggarwal MD - 12/04/2023 VASCULAR ULTRASOUND REPORT MARCO A JONES : 1955 Study Date: 12/04/2023 1:17:26 PM Age: 68 years Tech: CAR Gender: F Referring MD: BANDAR LOMELI Site: [facility] V[facility] Center Study performed: Aorta Indication [...] theIntersocietal Accreditation Commission (IAC/Vascular),[email or web address] Report generated by [employer]am[employer]s. Final Bandar Lomeli MD US * MR CARDIAC WWO (12/04/2023 8:06 AM CDT) Anatomical Region Laterality Modality HEART, THORAX Magnetic Resonan ce 12/04/2023 6:32 AM CDT Narrative 12/04/2023 8:46 AM CDT ?[facility] ? CMR Report ??MRN: ?[id number] ?Name: ? MARCO A JONES ?: ? 1955-Dec- ?Scan Date: ?Accession Number: ?[id number] ?Status: ?Final ? Electronically signed by Andrew [...] ? ml/m^2 ? 53 ??(13-31) ? 26 ??(-34) ?? CO ?? L/min ? 4.49 ? [...] ? Apical Lateral ? Normal/Hyper None ? [place] ? Normal/Hyper None ? + + + [...] SCAN INFO ===== GENERAL ----- --- ?SCANNER ?PROGRAM DIRECTOR CABLE TELEVISION: ??SIEMENS ?MODEL: ??Aera ?CONTRAST AGENT ?TYPE: ??Gadavist ?GD CONCENTRATION: ??1.0 M ?SETUP ?REASON(S) FOR SCAN: ??Ischemic vs nonischemic ?REFERRING PHYSICIAN: ??LINSEY ANDREW ?ATTENDING PHYSICIAN: ??LINSEY ANDREW [facility] ===== Patient Account ?[id number] ICD10 Codes ?I42.9, R07.9, G89.29, Z91.89 Report generated by [employer], a product of [employer] Procedure Note Andrew Thompson MD - 12/04/2023 [facility] CMR Report Name: MARCO A JONES : Scan Date: Accession Number: [id number] Status: Final Electronically signed by Andrew Thompson [...] Inferior Normal/Hyper None Apical Lateral Normal/Hyper None [place] Normal/Hyper None + + + + +----- [...] SCAN INFO ===== GENERAL ----- --- SCANNER PROGRAM DIRECTOR CABLE TELEVISION: SIEMENS MODEL: Aera CONTRAST AGENT TYPE: Gadavist GD CONCENTRATION: 1.0 M SETUP REASON(S) FOR SCAN: Ischemic vs nonischemic REFERRING PHYSICIAN: LINSEY ANDREW ATTENDING PHYSICIAN: LINSEY ANDREW [place] ===== Patient Account [id number] ICD10 Codes I42.9, R07.9, G89.29, Z91.89 Report generated by [employer], a product of [employer] Linsey Andrew MD MR * (ABNORMAL) CBC WITH AUTO DIFFERENTIAL (10/30/2023 11:16 AM CDT) [facility] WHITE BLOOD COUNT 9.9 4.5 - 11.0 thou/cu mm 10/30/2023 12:21 PM CDT [facility] RED BLOOD COUNT 3.39(L) 4.00 - 5.20 mil/cu mm 10/30/2023 12:21 PM CDT [facility] HEMOGLOBIN 10.8(L) 12.0 - 16.0 g/dL 10/30/2023 12:21 PM CDT [facility] HEMATOCRIT 32.9(L) 33.0 - 51.0 % 10/30/2023 12:21 PM CDT [facility] MCV 97 80 - 100 fL 10/30/2023 12:21 PM CDT [facility] MCH 31.9 26.0 - 34.0 pg 10/30/2023 12:21 PM CDT [facility] MCHC 32.8 32.0 - 36.0 g/dL 10/30/2023 12:21 PM CDT [facility] RDW 12.6 11.5 - 15.5 % 10/30/2023 12:21 PM CDT [facility] PLATELET COUNT 396 140 - 440 thou/cu mm 10/30/2023 12:21 PM CDT [facility] MPV 8.9 6.5 - 11.0 fL 10/30/2023 12:21 PM CDT [facility] Blood BLOOD SPECIMEN / Unknown Venipuncture / Unknown 10/30/2023 11:16 AM CDT 10/30/2023 11:17 AM CDT Parisa REESE HEMATOLOGY [facility] [address] [place] [address], [place] [phone] * RED CELL MORPHOLOGY (10/30/2023 11:16 AM CDT) RBC COMMENT RBC morphology appears normal RBC morphology appears normal, RBC morphology within normal limits for newborns. 10/30/2023 12:20 PM CDT [facility] Blood BLOOD SPECIMEN / Unknown Venipuncture / Unknown 10/30/2023 11:16 AM CDT 10/30/2023 11:17 AM CDT Parisa REESE HEMATOLOGY Performing Organization Address City/[facility]/ZIP Co de Phone Number [facility] [address] [place] [address], [place] [phone] * PLATELET ESTIMATE (10/30/2023 11:16 AM CDT) PLATELET ESTIMATE Adequate Adequate, No estimate 10/30/2023 12:20 PM CDT [facility] Blood BLOOD SPECIMEN / Unknown Venipuncture / Unknown 10/30/2023 11:16 AM CDT 10/30/2023 11:17 AM CDT Parisa REESE HEMATOLOGY [facility] [address] [place] [address], * MANUAL DIFFERENTIAL (10/30/2023 11:16 AM CDT) % NEUTROPHILS 65.0 % 10/30/2023 12:20 PM CDT [facility] % LYMPHOCYTES 24.0 % 10/30/2023 12:20 PM CDT [facility] % MONOCYTES 8.0 % 10/30/2023 12:20 PM CDT [facility] % EOSINOPHILS 3.0 % 10/30/2023 12:20 PM CDT [facility] % BASOPHILS 0.0 % 10/30/2023 12:20 PM CDT [facility] NEUTROPHILS ABSOLUTE 6.4 1.7 - 7.0 thou/cu mm 10/30/2023 12:20 PM CDT [facility] LYMPHOCYTES ABSOLUTE 2.4 0.9 - 2.9 thou/cu mm 10/30/2023 12:20 PM CDT [facility] MONOCYTES ABSOLUTE 0.8 <0.9 thou/cu mm 10/30/2023 12:20 PM CDT [facility] EOSINOPHILS ABSOLUTE 0.3 <0.5 thou/cu mm 10/30/2023 12:20 PM CDT [facility] BASOPHILS ABSOLUTE 0.0 <0.3 thou/cu mm 10/30/2023 12:20 PM CDT [facility] Blood BLOOD SPECIMEN / Unknown Venipuncture / Unknown 10/30/2023 11:16 AM CDT 10/30/2023 11:17 AM CDT Parisa REESE HEMATOLOGY [facility] [address] [place] [address], * IRON PLUS IRON BINDING CAP (10/30/2023 11:16 AM CDT) IRON 56 37 - 145 ug/dL 10/31/2023 6:22 AM CDT [facility] UIBC (UNSATURATED) 225 112 - 347 ug/dL 10/31/2023 6:22 AM CDT [facility] IRON BINDING CAPACITY 281 250 - 400 ug/dL 10/31/2023 6:22 AM CDT [facility] IRON,% SATURATION 20 14 - 50 % 10/31/2023 6:22 AM CDT [facility] Blood BLOOD SPECIMEN / Unknown Venipuncture / Unknown 10/30/2023 11:16 AM CDT 10/30/2023 11:17 AM CDT Parisa REESE CHEMISTRY Performing Organization Address City/[facility]/ZIP Co de Phone Number [facility] [address] [phone], [place] * FERRITIN (10/30/2023 11:16 AM CDT) FERRITIN 105.0 15.0 - 150.0 ng/mL 10/31/2023 6:22 AM CDT [facility] Blood BLOOD SPECIMEN / Unknown Venipuncture / Unknown 10/30/2023 11:16 AM CDT 10/30/2023 11:17 AM CDT Parisa REESE CHEMISTRY Performing Organization Address City/[facility]/ZIP Co de Phone Number [facility] [address] [place] [id number], [place] * (ABNORMAL) BASIC METABOLIC PANEL (10/30/2023 11:16 AM CDT) Only the most recent of4 resultswithin the time period is included. SODIUM 137 136 - 145 mmol/L 10/31/2023 6:56 AM T [facility] POTASSIUM 4.0 3.5 - 5.1 mmol/L 10/31/2023 6:56 AM T [facility] CHLORIDE 98 98 - 107 mmol/L 10/31/2023 6:56 AM T [facility] CO2,TOTAL 25 22 - 29 mmol/L 10/31/2023 6:56 AM T [facility] ANION GAP 14 5 - 18 10/31/2023 6:56 AM T [facility] GLUCOSE 215(H) 70 - 99 mg/dL 10/31/2023 6:56 AM T [facility] CALCIUM 9.2 8.8 - 10.2 mg/dL 10/31/2023 6:56 AM T [facility] BUN 16 8 - 23 mg/dL 10/31/2023 6:56 AM T [facility] CREATININE 1.04(H) 0.50 - 0.90 mg/dL 10/31/2023 6:56 AM T [facility] BUN/CREAT RATIO 15 10 - 20 6:56 AM T [facility] eGFR 59(L) >90 mL/min/1.7 3m2 10/31/2023 6:56 AM T [facility] Comment:As of 2021, eG [...] CDT Parisa REESE CHEMISTRY Performing Organization Address City/[facility]/ZIP Co de Phone Number [facility] [address] [place] [address], [place] * (ABNORMAL) GLUCOSE METER (10/26/2023 11:35 AM CDT) Only the most recent of15 resultswithin the time period is included. GLUCOSE METER 224(H) 65 - 100 mg/dL 10/26/2023 11:35 AM CDT [facility] Blood BLOOD SPECIMEN / Unknown 10/26/2023 11:35 AM CDT 10/26/2023 11:35 AM CDT Bandar Lomeli MD CHEMISTRY Performing Organization Address [facility] Co de Phone Number [facility] [address] [place] [id number], [place] * (ABNORMAL) CBC W PLT NO DIFF (10/26/2023 11:05 AM CDT) Only the most recent of2 resultswithin the time period is included. WHITE BLOOD COUNT 6.1 4.5 - 11.0 thou/cu mm 10/26/2023 11:25 AM T [facility] RED BLOOD COUNT 2.72(L) 4.00 - 5.20 mil/cu mm 10/26/2023 11:25 AM T [facility] HEMOGLOBIN 8.5(L) 12.0 - 16.0 g/dL 10/26/2023 11:25 AM T [facility] HEMATOCRIT 26.1(L) 33.0 - 51.0 % 10/26/2023 11:25 AM T [facility] MCV 96 80 - 100 fL 10/26/2023 11:25 AM T [facility] MCH 31.3 26.0 - 34.0 pg 10/26/2023 11:25 AM T [facility] MCHC 32.6 32.0 - 36.0 g/dL 10/26/2023 11:25 AM CDT [facility] RDW 12.6 11.5 - 15.5 % 10/26/2023 11:25 AM CDT [facility] PLATELET COUNT 235 140 - 440 thou/cu mm 10/26/2023 11:25 AM CDT [facility] MPV 9.6 6.5 - 11.0 fL 10/26/2023 11:25 AM CDT [facility] NRBC 0.0 % 10/26/2023 11:25 AM CDT [facility] ABS NRBC 0.0 thou /cu mm 10/26/2023 11:25 AM CDT [facility] Blood BLOOD SPECIMEN / Unknown Venipuncture / Unknown 10/26/2023 11:05 AM CDT 10/26/2023 11:16 AM CDT Linda Horn NP HEMATOLOGY Performing Organization Address City/[facility]/ZIP Co de Phone Number [facility] [address] * POTASSIUM (10/26/2023 11:05 AM CDT) [facility] POTASSIUM 5.1 3.5 - 5.1 mmol/L 10/26/2023 11:44 AM CDT [facility] Blood BLOOD SPECIMEN / Unknown Venipuncture / Unknown 10/26/2023 11:05 AM CDT 10/26/2023 11:16 AM CDT Taylor Vences RN CHEMISTRY [facility] [address] [place] [address], * SCAN-CARDIAC STRIP (10/26/2023 7:27 AM CDT) [...] - 16.0 g/dL 10/25/2023 8:01 AM CDT [facility] MCV 96 80 - 100 fL 10/25/2023 8:01 AM CDT [facility] Blood BLOOD SPECIMEN / Unknown Butterfly / Unknown 10/25/2023 7:27 AM CDT 10/25/2023 7:57 AM CDT Narrative [facility] - 10/25/2023 8:01 AM CDT Call if Hgb less than 10. Ad Vargas DO HEMATOLOGY [facility] [address] [place] [phone], * SCAN-CARDIAC STRIP (10/25/2023 5:57 AM CDT) Scanner OTHER * SCAN-CARDIAC STRIP (10/24/2023 2:35 PM CDT) Scanner OTHER * PV OTHER PROCEDURE (10/24/2023 10:46 AM CDT) Anatomical Region Laterality Modality Other Narrative 10/24/2023 10:46 AM CDT Bandar Lomeli MD ? 10/24/2023 11:16 AM OPERATIVE REPORT SURGEON Bandar Lomeli MD BIOMETRICS EXPERIMENTALIST Anselmo Vargas MD (Fellow) ANESTHESIA General PREOPERATIVE [...] I was present for the entire operation. MATERIAL EXPEDITER MEASURES We utilized approximately 24 cc of Optiray contrast and fluoroscopy time was 1.4 minutes (34.2 mGy). Bandar Lomeli MD CV IMAGING * (ABNORMAL) COMPREHENSIVE BLOOD GAS ARTERIAL (10/24/2023 10:40 AM CDT) PH, ARTERIAL 7.41 7.35 - 7.45 10/24/2023 10:40 AM CDT [facility] PCO2, ARTERIAL 46(H) 32 - 45 mmHg 10/24/2023 10:40 AM CDT [facility] PO2, ARTERIAL 200(H) 83 - 108 mmHg 10/24/2023 10:40 AM CDT [facility] HCO3, ARTERIAL 29(H) 21 - 28 mmol/L 10/24/2023 10:40 AM CDT [facility] BASE EXCESS, ARTERIAL 4.0(H) -2.0 - 3.0 10/24/2023 10:40 AM CDT [facility] O2 SATURATION, ARTERIAL 99(H) 94 - 98 % 10/24/2023 10:40 AM CDT [facility] PATIENT TEMPERATURE 37.0 Degrees C 10/24/2023 10:40 AM CDT [facility] COLLECTION SITE ARTERIAL LINE 10/24/2023 10:40 AM CDT [facility] HEMOGLOBIN,BLOO D GAS 8.7(L) 12.0 - 16.0 g/dL 10/24/2023 10:40 AM CDT [facility] SODIUM 132(L) 136 - 145 mmol/L 10/24/2023 10:40 AM CDT [facility] POTASSIUM 4.2 3.5 - 5.1 mmol/L 10/24/2023 10:40 AM CDT [facility] CHLORIDE 104 98 - 107 mmol/L 10/24/2023 10:40 AM CDT [facility] Blood BLOOD SPECIMEN / Unknown 10/24/2023 10:40 AM CDT 10/24/2023 10:40 AM CDT Bandar Lomeli MD CHEMISTRY Performing Organization Address City/[facility]/ZIP Co de Phone Number [facility] [address] [place] [address], * (ABNORMAL) ACTIVATED CLOTTING TIME [id number] ACT (10/24/2023 10:38 AM CDT) Only the most recent of3 resultswithin the time period is included. [facility] ACTIVATED CLOTTING TIME, POCT 249(H) 74 - 125 sec 10/24/2023 11:28 AM CDT [facility] Blood BLOOD SPECIMEN / Unknown 10/24/2023 10:38 AM CDT 10/24/2023 11:28 AM CDT Bandar Lomeli MD HEMATOLOGY Performing Organization Address City/[facility]/ZIP Co de Phone Number [facility] [address] [place] [id number] * ETT (10/24/2023 8:31 AM CDT) Narrative Taylor Gaona, JAVA SDET Student - 10/24/2023 8:31 AM CDT Taylor aGona, JAVA SDET Student ? 10/24/2023 ??8:31 AM Procedure: ETT [...] NOW QTc 513 ms BEYOND NOW P [place] 79 degrees BEYOND NOW R [place] 21 degrees BEYOND NOW T [place] 85 degrees BEYOND NOW 10/24/2023 6:41 AM CDT 10/24/2023 1:37 PM CDT Narrative [facility] NOW - 10/24/2023 1:37 PM CDT Test Indication: PREOP Fannie REESE EKG ORD Performing Organization Address City/[facility]/ZIP Co de Phone Number [facility] NOW [place], [place] * Type and Screen (10/24/2023 6:40 AM CDT) ABORH O Rh Negative 10/24/2023 7:41 AM CDT [facility] BLOOD B[facility] ANTIBODY SCREEN Negative Negative 10/24/2023 7:41 AM CDT [facility] BLOOD BANK SPECIMEN EXPIRATION DATE/TIME 10/27/23 23:59 10/24/2023 7:41 AM CDT [facility] Blood BLOOD SPECIMEN / Unknown Venipuncture / Unknown 10/24/2023 6:40 AM CDT 10/24/2023 6:51 AM CDT Fannie REESE BLOOD BANK [facility] [employer] LAB-CENTRAL LAB BLOOD BANK [address] [place] [address], * SCAN-CARDIAC STRIP (10/24/2023 12:00 AM CDT) [...] CDT ECHOCARDIOGRAM MARCO A JONES ?Accession#: ?? [id number] : ?1955 68 years Study Date: ?? 10/18/2023 1:06:17 PM Gender: F ? BP: ? 169/69 mmHg Height: 155.00 cm ? BSA: ?1.43 m? ? ? Weight: 47.00 kg ?Tech: ? MTS ?Referring MD: NAINA TURCIOS Site: ? [facility] Reading Location: MOBILE OP Patient Location: Outpatient. [...] . This study was interpreted by an [facility] accredited facility. ??Final ?? Procedure Note Carter Herman MD - 10/18/2023 ECHOCARDIOGRAM MARCO A JONES : 1955 68 years Study Date: 10/18/2023 1:06:17 PM Gender: F BP: 169/69 mmHg Height: 155.00 cm BSA: 1.43 m? ? ? Weight: 47.00 kg Tech: [facility] Referring MD: NAINA TURCIOS Site: [facility] Reading Location: MOBILE OP Patient Location: Outpatient. [...] . This study was interpreted by an [facility] accredited facility. Final Naina Turcios MD [...] artery due to calcified and noncalcified plaque, fvnn-ru-hdtmeska severity left Common femoral artery coral reef [...] 70 percent stenosis around Maxx`s canal, and [id number] percent multifocal stenosis of the popliteal artery. [...] iliac artery due to calcified andnoncalcified plaque, vxdt-an-exetpjrp severity left Common femoral arterycoral reef plaque, [...] - 1.11 mg/dL 10/09/2023 3:50 PM CDT [facility] Comment:Caution: Patients ta mariaelena Hydroxyurea have falsely increased iStat Creatinine results. Verify creatinine results ordering a Creatinine (50572.2) eGFR 70(L) >90 mL/min/1.7 3m2 10/09/2023 3:50 PM CDT [facility] Comment:As of 2021, eG FR is calculated by the CKD-EPI creatinine equation without race adjustment. eGFR can be influenced by muscle mass, exercise, and diet. The reported eGFR is an estimation only and is only applicable if the renal function is stable. Blood BLOOD SPECIMEN / Unknown 10/09/2023 3:48 PM CDT 10/09/2023 3:50 PM CDT Parisa REESE CHEMISTRY [facility] [address] [place] [address], [place] [phone] * US ARTERIAL SEG W TOE PRESSURES (09/27/2023 8:16 AM CDT) Anatomical Region Laterality Modality LEGS Ultrasound 09/27/2023 7:18 AM CDT Narrative 09/27/2023 3:45 PM CDT VASCULAR ULTRASOUND REPORT MARCO A JONES Accession#: ?? [id number] : ?1955 Study Date: ?? 09/27/2023 7:18:54 AM Age: ?68 years ?? Tech: ? AMS Gender: F ?Referring MD: PARISA CALLAHAN Site: [facility] Vascular [facility] Study performed: ?Lower extremity resting [...] Index +-----+ +--------+ +-----+ 0.60 ? 91 ?FREELANCE WEB DESIGNER ?142 ? 0.94 +-----+ +--------+ +-----+ 0.68 ?103 ?DPA ?145 ? 0.96 +-----+ +--------+ +-----+ 0.22 ? 33 ? Digit 1 ?113 ? 0.75 +-----+ +--------+ +-----+ ROBB Johnson. Electronically signed on 09/27/2023 3:45:37 PM This study was performed and interpreted by a service accredited by the Intersocietal Accreditation Commission (IAC/Vascular), www.intersocietal.org/vascular Report generated by [employer]. ??Final ?? Procedure Note Radha Laguna MBBS - 09/27/2023 VASCULAR ULTRASOUND REPORT MARCO A JONES : 1955 Study Date: 09/27/2023 7:18:54 AM Age: 68 years Tech: AMS Gender: F Referring MD: PARISA CALLAHAN Site: [facility] Study performed: Lower extremity [...] 150 Index +-----+ +--------+ +-----+ 0.60 91 FREELANCE WEB DESIGNER 142 0.94 +-----+ +--------+ +-----+ 0.68 103 DPA 145 0.96 +-----+ +--------+ +-----+ 0.22 33 Digit 1 113 0.75 +-----+ +--------+ +-----+ ROBB Johnson. Electronically signed on 09/27/2023 3:45:37 PM This study was performed and interpreted by a service accredited by theIntersocietal Accreditation Commission (IAC/Vascular),www.intersocietal.org/vascular Report generated by [employer]. Final Parisa REESE US * US ARTERIAL LOWER EXTREMITY RIGHT (09/27/2023 8:16 AM CDT) Anatomical Region Laterality Modality Ultrasound 09/27/2023 7:32 AM CDT Narrative 09/27/2023 3:44 PM CDT VASCULAR ULTRASOUND REPORT MARCO A JONES Accession#: ?? [id number] : ?1955 Study Date: ?? 09/27/2023 7:32:28 AM Age: ?68 years ?? Tech: ? AMS Gender: F ?Referring MD: PARISA CALLAHAN Site: [facility] Vascular [facility] Study performed: ?Lower extremity duplex US, (right). [...] for comparison. FINDINGS: Elevated velocities at the PROFESSIONAL WRESTLER are consistent with a severe (75-99%) stenosis. Monophasic waveforms noted distally through out the RT LE. +--------+ + RIGHT ?? Velocity cm/s +--------+ + EIA DST ? 34 ? +--------+ + PROFESSIONAL WRESTLER DST ? 629 ? +--------+ + PFA ? 102 ? +--------+ + SFA PRX ? 224 ? +--------+ + SFA MID ? 72 ? +--------+ + SFA DST ? 44 ? +--------+ + OBDULIA PRX ? 53 ? +--------+ + OBDULIA DST ? 35 ? +--------+ + TPT ? 30 ? +--------+ + FREELANCE WEB DESIGNER DST ? 27 ? +--------+ + ISIAH [...] Accreditation Commission (IAC/Vascular), www.intersocietal.org/vascular Report generated by [employer]. ??Final ?? Procedure Note Radha Laguna MBBS - 09/27/2023 VASCULAR ULTRASOUND REPORT MARCO A JONES : 1955 Study Date: 09/27/2023 7:32:28 AM Age: 68 years Tech: AMS Gender: F Referring MD: PARISA CALLAHAN Site: [facility] Vascular [facility] Study performed: Lower extremity duplex [...] for comparison. FINDINGS: Elevated velocities at the PROFESSIONAL WRESTLER are consistent with a severe (75-99%)stenosis. Monophasic waveforms noted distally through out the RT LE. +--------+ + RIGHT Velocity cm/s +--------+ + EIA DST 34 +--------+ + PROFESSIONAL WRESTLER DST 629 +--------+ + PFA 102 +--------+ + SFA PRX 224 +--------+ + SFA MID 72 +--------+ + SFA DST 44 +--------+ + OBDULIA PRX 53 +--------+ + OBDULIA DST 35 +--------+ + TPT 30 +--------+ + FREELANCE WEB DESIGNER DST 27 +--------+ + ISIAH DST 16 [...] theIntersocietal Accreditation Commission (IAC/Vascular),www.intersocietal.org/vascular Report generated by [employer]. Final Parisa REESE US * XR MAMMO CASSIE BILAT SCREEN (11/09/2021 [...] care provider. XR MAMMO CASSIE BILAT SCREEN [[id number]] CLINICAL HISTORY: ??This is an asymptomatic 66 y.o. patient. INDICATION FOR EXAM: Mammogram Screening. TECHNIQUE: CC & MLO views were obtained. ??This study was evaluated with the assistance of Computer-Aided Detection. Breast Tomosynthesis was used in interpretation. COMPARISON FILM: Yes 01/23/17 [facility] 09/10/10 [facility] FINDINGS: ??The breasts are extremely dense, [...] Alendronate (Fosamax) medication treatment. Destiny Medellin PA-C [facility] 11/15/2021 Narrative 11/15/2021 8:42 AM CDT For Patients: Results are automatically released to your [facility] ([employer]) account once available, in compliance with federal regulations. This means that you may see your results before your provider has had a chance to review them. Please allow 2-3 business days for your provider to comment on the results. XR DXA Bone Mineral Density (BMD) EXAM LOCATION: [address] [address] PATIENT NAME: Marco A Jones DATE OF [...] two scanners are made by the same undercover cop. PROCEDURE: Dual-energy x-ray absorptiometry performed with routine [...] REFLEX MEASURED LDL (11/02/2021 1:10 PM CDT) [facility] CHOLESTEROL,TOTAL 121 100 - 199 mg/dL 11/02/2021 11:38 PM CDT [facility] TRIGLYCERIDES 91 <150 mg/dL 11/02/2021 11:38 PM CDT [facility] HDL CHOLESTEROL 45 >40 mg/dL 11:38 PM CDT [facility] NON-HDL CHOLESTEROL 76 <145 mg/dl 11/02/2021 11:38 PM CDT [facility] CHOL/HDL RATIO 2.69 <4.50 11/02/2021 11:38 PM CDT [facility] LDL CHOLESTEROL 58 <=130 mg/dL 11/02/2021 11:38 PM CDT [facility] TRA [facility]ATORY VLDL CHOLESTEROL 18 <=30 mg/dL 11/02/2021 11:38 PM CDT [facility] PROVIDER ORDERED STATUS RANDOM 11/02/2021 11:38 PM CDT [facility] Blood BLOOD SPECIMEN / Unknown Venipuncture / Unknown 11/02/2021 1:10 PM CDT 11/02/2021 1:10 PM CDT Naina Turcios MD CHEMISTRY [facility] [address] [place] [address], * OCCULT BLOOD IFOBT STOOL (11/29/2018 3:36 PM CDT) STOOL BLOOD ,IFOBT Negative Negative 12/07/2018 9:42 AM CDT [facility] Stool STOOL SPECIMEN / Unknown Non-Blood / Unknown 11/29/2018 3:36 PM CDT 12/06/2018 3:36 PM CDT Naina Turcios MD LABORATORY [facility] [address] [place] [id number], * ANTI HCV (01/04/2010 1:58 PM CDT) ANTI HCV Non-reacti ve [facility] Blood specimen (specimen) BLOOD SPECIMEN / Unknown 01/04/2010 1:58 PM CDT 01/04/2010 1:46 PM CDT Naina Turcios MD SEND OUTS [facility] INTERNAL ZIP [address] [place] [address] from Last 3 Months or Most Recently [...] Preferences, Provider to review later Care Teams Clinical Informatics Strategist Relationship Specialty Start Date End Date Parisa Callahan [place] [address] PCP - General Physician Form Builder 05/16/[address] [address] 02/04/23 Raegan Dumont COTA [address] [place] [address] Occupational Therapy 05/05/23
--- OUTSIDE RECORDS SUMMARY | 2023-12-28 14:29 | XMS_ITS | Clinical Summary ---
Author Organization [facility] Address [address] [place] [address] Care Team Providers Care Sr Technical Sales Consultant Name Role Phone Elsewhere, Pcp Primary Care Provider Unavailabl e Source Comments Patient records contain information from all sites at [facility]. For routine questions regarding patient records, call [phone] during business hours, M-F 8:00 AM - 5:00 PM Central Time. Record requests for emergency care only can be directed to [phone] at any time.[facility] Allergies Active Allergy Reactions Criticality Noted [...] Right 10/31/2023 Atherosclerotic Heart Diseas e Of [place] Coronary Artery Without Angina Pectoris 09/15/2022 Major Depressive Disorder, Recurrent, Unspecifie d 08/03/2021 Fracture Radius Colles Closed Initial Right 05/03 Overview: Added automatically from request for surgery [id number] Osteoporosis 01/23/2018 Hypertension NOS Diabetes Mellitus Type 2 Encounters Date Type Department Care Team Description 12/23/2023 6:51 AM CDT - 12/23/2023 8:33 AM CDT Emergency [facility] [address] [place] [phone] Trent Davila APRN, C.N.P., M.S.N. Abrasion Leg Initial Right (Primary Dx); Wound Lower Leg Open Initial Left; Abuse Cannabis Discharge Disposition: Home or Self Care 12/23/2023 5:15 AM CDT Ancillary Procedure Department of Emergency Medicine 10/31/2023 1:36 PM CDT - 10/31/2023 4:28 PM CDT Emergency [facility] [address] [place] [phone] Isidoro Parker APRN, C.N.P., D.N.P. Swelling Leg [...] uit: Not Asked; Counseling Given: Not Answered Alcohol Use Standard Drinks/Week Comments Not Currently [...] Sign Reading Time Taken Comments Blood Pressure 122/98 12/23/2023 7:45 AM CDT Pulse 66 12/23/2023 7:45 AM CDT Temperature 36.4 ??C (97.5 ??F) 12/23/2023 6:55 AM CD T Respiratory Rate 16 12/23/2023 6:55 AM CDT Oxygen Saturation 100% 12/23/2023 7:45 AM CDT Inhaled Oxygen Concentration - - Weight 44.4 kg (97 lb 14.2 oz) 12/23/2023 6:53 A M CDT Height 157.5 cm (5' 2.01) 09/15/2022 3:04 PM CD T Body Mass Index 17.9 09/15/2022 3:04 PM CDT Plan of Treatment [...] history exists Medical Devices Implanted Type Area Ug Designer Device Identifier Shelf Expiration Date Model / Serial / Lot Plt Wrst Dvr Rt 3h 24.4x51.3 - [id number] Implanted:Qty : 1 on 05/26/2021 by Jorden Tineo M.D. at [facility] Hardware e.g. pins/screws/ rods [employer] [id number] / / 07.05.20. [address] S[address] Sngl 1.6x127 - [id number] Implanted:Qty : 1 on 05/26/2021 by Jorden Tineo M.D. at [facility] Hardware e.g. pins/screws/ rods [employer] [id number] / 21. 319 Sc[address] Dvr Fthrd 3.5x12 - [id number] Implanted:Qty : 2 on 05/26/2021 by Jorden Tineo M.D. at [facility] Hardware e.g. pins/screws/ rods [employer] [id number] / 07.05.20. 319 Peg Fix Dvr Pthrd Lng 2.5x22 - [id number] Implanted:Qty : 3 on 05/26/2021 by Jorden Tineo M.D. at [facility] Hardware e.g. pins/screws/ rods Right: Wrist [employer] [id number] / 07.05.20. 319 Peg Fix Dvr Pthrd Lng 2.5x16 - [id number] Implanted:Qty : 1 on 05/26/2021 by Jorden Tineo M.D. at [facility] Hardware e.g. pins/screws/ rods Right: Wrist [employer] [id number] / 07.05.20. 319 Peg Fix Dvr Smth Lng 2.0x18 - [id number] Implanted:Qty : 3 on 05/26/2021 by Jorden Tineo M.D. at [facility] Hardware e.g. pins/screws/ rods Right: Wrist [employer] [id number] / 07.05.20. 319 Scrw Dvr Fthrd 3.5x13 - [id number] Implanted:Qty : 1 on 05/26/2021 by Jorden Tineo M.D. at [facility] Hardware e.g. pins/screws/ rods [employer] [id number] / 07.05.20. 319 Procedures Procedure Name Priority Date/Time Associated Diagnosis Comments GLUCOSE POCT, B Routine 12/23/2023 7:50 AM CDT EMERGENCY DEPARTMENT IMAGE EXAM Routine 12/23/2023 5:15 AM CDT US LOWER EXTREMITY VEINS RIGHT RAD - [...] Recently Relevant to Health Maintenance Results * (ABNORMAL) Glucose, POCT (12/23/2023 7:50 AM CDT) Pathologist [facility] Glucose, POCT, B 182(H) 70 - 140 mg/dL 12/23/2023 7:50 AM CDT [facility] Blood 12/23/2023 7:50 AM CDT 12/23/2023 7:56 AM CDT Generic [facility] POCT ORDERABLES- MANUAL [facility] [address] [place] [address], [employer] in [address] [address] * Leg-Emergency Department Image Exam (12/23/2023 5:15 AM CDT) 12/23/2023 5:14 AM CDT Narrative IIMS - 12/23/2023 7:17 AM CDT This order has been created and auto-finalized to support the import of images acquired without order. The clinical documentation to support these images can be found on the encounter that produced images. Provider Not In System IMG NON RAD IMAGI NG PROCEDURES IIMS NA * US Lower Extremity Veins Right (10/31/2023 [...] and management can be found on the Derm[employer]ved site. Link [email or web address]/clinical-[email or web address] Procedure Note Pati Blankenship M.D. - 10/31/2023 [...] management can be found on theAskMayoExpert site. [email or web address]/clinical-answers/[email or web address]/cpm [email or web address] 1725 IMPRESSION: Negative for acute DVT. [...] right groinhematoma. No pseudoaneurysm identified. Yony Knight APRN.N.Diana., D.N.P. IMG US PROCEDURES from Last 3 Months or Most Recently Relevant to Health Maintenance Care Teams Sr Technical Sales Consultant Relationship Specialty Start Date End Date Elsewhere, Pcp PCP - General Family Medicine 03/11/21
--- OUTSIDE RECORDS SUMMARY | 2023-12-28 14:29 | XMS_ITS | Encounter Summary ---
Author Organization [facility] Address [address] [place] [address] Care Team Providers Care Cleaner Assistant Name Role Phone Elsewhere, Pcp Primary Care Provider Unavailabl e Encounter Details Date Type Department Care Team (Latest Contact Info) Description 09/18/2023 Clinical Communication Department of Rehabilitation Services in [address] [phone] Felipe Saravia, P.TTam [address] [place] [phone] Social History Tobacco Use Types Packs/Day Years [...] on filedocumented in this encounter Care Teams Cleaner Assistant Relationship Specialty Start Date End Date Elsewhere, Pcp PCP - General Family Medicine 03/11/21 documented as of this encounter
--- OUTSIDE RECORDS SUMMARY | 2023-12-28 14:29 | XMS_ITS ---
Author Organization [facility] Address [address] [place] [address] Care Team Providers Care Conventions Reservationist Name Role Phone Unavailable Unavailable Unavailable Surgery Details Not on file Complications Check Surgery Details section. Procedure Estimated Blood Loss Check Surgery Details section. Procedure Findings Check Surgery Details section. Procedure Specimens Taken Check Surgery Details section.
--- OUTSIDE RECORDS SUMMARY | 2023-12-28 14:29 | XMS_ITS | Encounter Summary ---
Author Organization [facility] Address [address] [place] [address] Care Team Providers Care Guidance Services Coordinator Name Role Phone Elsewhere, Pcp Primary Care Provider Unavailabl e Encounter Details Date Type Department Care Team (Late st Contact Info) Description 12/23/2023 5:15 AM CDT Ancillary Procedure Department of Emergency Medicine Social History Tobacco Use Types Packs/Day Years Used Date Smoking Tobacco: Every Day Cigarettes Passive Smoke Exposure: Current Smokeless Tobacco: Never Alcohol Use Standard Drinks/Week Comments Not Currently [...] Procedure Name Priority Date/Time Associated Diagnosis Comments EMERGENCY DEPARTMENT IMAGE EXAM Routine 12/23/2023 5:15 AM CDT documented in this encounter Results * Leg-Emergency Department Image Exam (12/23/2023 5:15 [...] NON RAD IMAGI NG PROCEDURES IIMS NA documented in this encounter Visit Diagnoses Not on filedocumented in this encounter Care Teams Guidance Services Coordinator Relationship Specialty Start Date End Date Elsewhere, Pcp PCP - General Family Medicine 03/11/21 documented as of this encounter
--- OUTSIDE RECORDS SUMMARY | 2023-12-28 14:29 | XMS_ITS | Encounter Summary ---
Author Organization [facility] Address [address] [place] [address] Care Team Providers Care Pie Maker Name Role Phone Elsewhere, Pcp Primary Care Provider Unavailabl e Reason for Visit * Reason Comments Skin Problem Presents with concer ns for leg wounds. States she smoked too much thc and she is feeling different than usual and needs to get checked out Encounter Details Date Type Department Care Team ([facility] st Contact Info) Description 12/23/2023 6:51 AM CDT - 12/23/2023 8:33 AM CDT Emergency [facility] [address] [place] [phone] Trent Davila, HANG, C.N.P., M.S.N. [address] [place] [phone] Abrasion Leg Initial Right (Primary Dx); Wound Lower Leg Open Initial Left; Abuse Cannabis Discharge Disposition: Home or Self Care Social [...] oz) 12/23/2023 6:53 A M CDT Height - - Body Mass Index 17.9 09/15/2022 3:04 PM CDT documented in this encounter Discharge Instructions * Discharge Instructions* Trent Davila APRN C.N.Diana., M.S.N. - 12/23/2023 7:15 AM CDT Make sure to keep appointment with the wound clinic regarding your ulcer of the left leg. You can consider daily dressing changes on the abrasion to your right leg. If you develop fever, confusion, nausea vomiting that you can not control, increasing redness and tenderness to the wound area, pus drainage, or worsening symptoms, return to emergency department. * Attachments The following attachments cannot be sent through Care Everywhere. * Abrasion (Kenyan) * Substance Use Disorder (Kenyan) documented in this encounter Medications at Time [...] as of this encounter ED Notes * Trent Davila N, TAPER OPERATOR, C.N.P., M.S.N. - 12/23/2023 6:58 AM CDT Images from the original note were not included. SUBJECTIVE CHIEF COMPLAINT/REASON FOR VISIT Skin Problem (Presents with concerns for leg wounds. States she smoked too much thc and she is feeling different than usual and needs to get checked out) HISTORY OF PRESENT ILLNESS History provided by: Patient REVIEW OF SYSTEMS Constitutional: Negative for chills and fever. HENT: Negative. Eyes: Negative. Respiratory: Negative. Cardiovascular: Negative. Gastrointestinal: Negative. Skin: Positive for wound. Psychiatric/Behavioral: Positive for substance abuse. OBJECTIVE Initial Vitals Temperature 12/23/23 0655 36.4 ??C Pulse Rate 12/23/23 0655 67 Heart Rate -- Resp Rate 12/23/23 0655 16 Blood Pressure 12/23/23 0655 (!) 170/69 SpO2 12/23/23 0655 98 % Pain Score 12/23/23 0654 6 PHYSICAL EXAMINATION Constitutional: She appears not lethargic. No distress. HENT: Head: Normocephalic. Pulmonary/Chest: Effort normal. Neurological: Alert and oriented to person, place, and time. Skin: Skin is normal color. She is not diaphoretic. Psychiatric: She has a normal mood and affect. ASSESSMENT/PLAN Bella Jones is a 68 y.o. female with a history of COPD who presents to the ED concerning for a scalp wound. Patient reports last night she noticed a scab wound to her right posterior ankle thatwas bleeding. She was concerned that she is going to bleed to from it. She also has an ulcer to her left anterior frye that has been follow-up with the [facility]. Her last appointmen t was on December 05, 2023. She denies any fevers or chills. She also states last night she did smoke marijuana and feel shaky afterwards. Differential diagnosis includes laced THC, insect bite, scratching, cellulitis, abscess, and othersconsidered. On exam of the left frye, there is an ulcer that is 3.5 x 1 cm to the left anterior frye that is Band-Aid and dressed. On the right posterior ankle, there is a pinpoint abrasion with no active bleeding noted. There is no targetoid lesion to suggest tick-borne illness. Patient also denies any exposure to the bernal or recent gardening. Plan: Provide reassuring that with the abrasion stop bleeding now, she can continue with daily bandage changes as necessary. She is advised to make sure to keep follow-up with wound clinic regarding her ulcer to the left frye. Return precautions given. Final Diagnoses: as of 12/23/23756 Abrasion Leg Initial Right Wound Lower Leg Open Initial Left - ulcer Abuse Cannabis Trent Davila APRN, C.NDeepa., M.S.N. 12/23/23756 documented in this encounter Plan of Treatment Not on file documented as of this encounter Procedures Procedure Name Priority Date/Time Associated Diagnosis Comments GLUCOSE POCT, B Routine 12/23/2023 7:50 AM CDT documented in this encounter Results * (ABNORMAL) Glucose, POCT (12/23/2023 7:50 AM CDT) Pathologist [facility] Glucose, POCT, B 182(H) 70 - 140 mg/dL 12/23/2023 7:50 AM CDT CNFL Blood 12/23/2023 7:50 AM CDT 12/23/2023 7:56 AM CDT Generic Rals LAB POCT ORDERABLES- MANUAL [facility] [address] [place] [address], [facility] CNFL [facility] in [address] [address] documented in this encounter Visit Diagnoses Diagnosis Abrasion Leg Initial Right- Primary Wound Lower Leg Open Initial Left Abuse Cannabis documented in this encounter Care Teams Pie Maker Relationship Specialty Start Date End Date Elsewhere, Pcp PCP - General Family Medicine 03/11/21 documented as of this encounter
--- OUTSIDE RECORDS SUMMARY | 2023-12-28 14:29 | XMS_ITS | Referral Summary ---
Author Organization [facility] Address [address] [place] [address] Care Team Providers Care Sales Office Administrator Name Role Phone Elsewhere, Pcp Primary Care Provider Unavailabl e Source Comments Patient records contain information from all sites at [facility]. For routine questions regarding patient records, call [phone] during business hours, M-F 8:00 AM - 5:00 PM Central Time. Record requests for emergency care only can be directed to [phone] at any time.[facility] Encounters Date Type Department Care Team Description 12/23/2023 5:15 AM CDT Ancillary Procedure Department of Emergency Medicine 12/23/2023 6:51 AM CDT - 12/23/2023 8:33 AM CDT Emergency [facility] [address] [place] [phone] Trent Davila APRN, C.N.P., M.S.N. Abrasion Leg Initial Right (Primary Dx); Wound Lower Leg Open Initial Left; Abuse Cannabis Discharge Disposition: Home or Self Care 10/31/2023 1:36 PM CDT - 10/31/2023 4:28 PM CDT Emergency [facility] [address] [place] [phone] Isidoro Parker APRN, C.N.P., D.N.P. Swelling Leg [...] Overview: Added automatically from request for surgery [id number] Osteoporosis 01/23/2018 Hypertension NOS Diabetes Mellitus Type [...] on file Medical Devices Implanted Type Area Record Changer Tester Device Identifier Shelf Expiration Date Model / Serial / Lot Plt Wrst Dvr Rt 3h 24.4x51.3 - [id number] Implanted:Qty : 1 on 05/26/2021 by Jorden Tineo M.D. at [facility] Hardware e.g. pins/screws/ rods [employer] [id number] / / 07.05.20. [address] S[address] Sngl 1.6x127 - [id number] Implanted:Qty : 1 on 05/26/2021 by Jorden Tineo M.D. at [facility] Hardware e.g. pins/screws/ rods [employer] [id number] / 07.05.21. 319 Scrw Dvr Fthrd 3.5x12 - [id number] Implanted:Qty : 2 on 05/26/2021 by Jorden Tineo M.D. at [facility] Hardware e.g. pins/screws/ rods [employer] [id number] / 07.05.20. 319 Peg Fix Dvr Pthrd Lng 2.5x22 - [id number] Implanted:Qty : 3 on 05/26/2021 by Jorden Tineo M.D. at [facility] Hardware e.g. pins/screws/ rods Right: Wrist [employer] [id number] / 07.05.21. 319 Peg Fix Dvr Pthrd Lng 2.5x16 - [id number] Implanted:Qty : 1 on 05/26/2021 by Jorden Tineo M.D. at [facility] Hardware e.g. pins/screws/ rods Right: Wrist [employer] [id number] / 07.05.21. 319 Peg Fix Dvr Smth Lng 2.0x18 - [id number] Implanted:Qty : 3 on 05/26/2021 by Jorden Tineo M.D. at [facility] Hardware e.g. pins/screws/ rods Right: Wrist [employer] [id number] / / 07.05.21. 319 Scrw Dvr Fthrd 3.5x13 - [id number] Implanted:Qty : 1 on 05/26/2021 by Jorden Tineo M.D. at [facility] Hardware e.g. pins/screws/ rods [employer] [id number] / 21. 319 Procedures Procedure Name Priority Date/Time Associated [...] (ABNORMAL) Glucose, POCT (12/23/2023 7:50 AM CDT) Glucose, POCT, B 182(H) 70 - 140 mg/dL 12/23/2023 7:50 AM CDT CNFL Blood 12/23/2023 7:50 AM CDT 12/23/2023 7:56 AM CDT Generic Rals LAB POCT ORDERABLES- MANUAL [facility] [address] [place] [address], [facility] CNFL [facility] in [address] [address] * Leg-Emergency Department Image Exam (12/23/2023 5:15 [...] and management can be found on the Ryonet site. Link [email or web address].[email or web address]/topic/clinical-answers/[email or web address]/[email or web address] [address]109 Procedure Note Pati Blankenship M.D. - 10/31/2023 [...] management can be found on theAskMayoExpert site. Linkhttps://[email or web address].[email or web address]/topic/clinical-answers/[email or web address]/cpm -2049 1725 IMPRESSION: Negative for acute DVT. [...] Recently Relevant to Health Maintenance Care Teams Sales Office Administrator Relationship Specialty Start Date End Date Elsewhere, Pcp PCP - General Family Medicine 03/11/21
--- OUTSIDE RECORDS SUMMARY | 2023-12-28 14:29 | XMS_ITS | Encounter Summary ---
Author Organization [facility] Address [address] [place] [address] Care Team Providers Care Nutrition Worker Name Role Phone Elsewhere, Pcp Primary Care Provider Unavailabl e Reason for Visit * Reason Comments Joint Swelling Knee swelling to rig ht. 02/09 pain Encounter Details Date Type Department Care Team (Late st Contact Info) Description 10/31/2023 1:36 PM CDT - 10/31/2023 4:28 PM CDT Emergency [facility] [address] [place] [phone] Isidoro Parker APRN, C.N.P., D.N.P. [address] [place] [phone] Swelling Leg Right (Primary Dx) [...] on this leg. Thank you for utilizing [facility] for your care! documented in [...] Per chart review, recent surgical procedure at [facility]. Please see the hospital discharge below. [...] 03 with imaging. 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 This happened at [facility]. She states she woke up this [...] with vascular surgery tomorrow. Isidoro Parker, DNP, TELEVISION PRODUCTION CLERK, MANAGER ACQUISITION-C, AGACNP-BC, ENP-C Emergency Medicine Isidoro Parker APRN, [...] and management can be found on the Recorded Future site. Link [email or web address]://Encore [email or web address].[email or web address]/topic/clinical-answers/[email or web address]/[facility]204 [address]382 Procedure Note Pati Blankenship M.D. - 10/31/2023 [...] thrombosis and management can be found on theAskMaSpyder LynkExpert site. Linkhttps://[email or web address].[email or web address]/topic/clinical-[email or web address]/[email or web address]/[facility] -2049 1725 IMPRESSION: Negative for acute [...] Right documented in this encounter Care Teams Nutrition Worker Relationship Specialty Start Date End Date Elsewhere, Pcp PCP - General Family Medicine 03/11/21 documented as of this encounter
== END 2023-12-28 14:27 | disposition home or self-care (01) ==
LOC: WOUND 14:26
PROVIDERS: PCP Physician Assistant; Visit Provider Nurse Practitioner Family
DX: E10.622 Type 1 diabetes mellitus with other skin ulcer (principal); L97.828 Non-pressure chronic ulcer of other part of left lower leg with other specified severity; I73.9 Peripheral vascular disease, unspecified; I10 Essential (primary) hypertension; Z79.4 Long term (current) use of insulin
CPT/HCPCS: 11042

== ENCOUNTER 2024-01-05 16:45 | Inpatient (IN) | payer MEDICARE, SELFPAY ==
[2024-01-05] VITALS (7 sets, daily range): BP systolic 107–147; BP diastolic 53–72; PULSE 73–105; RESP 16–20; TEMP 36.2–36.5; O2SAT 90–94; BMI 19.2; BMI 20.8
--- OUTSIDE RECORDS SUMMARY | 2024-01-05 16:47 | XMS_ITS | Patient Health Record ---
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, not intractable, without status epilepticus (G40.009) Active confirmed Localization- related epilepsy (224776549) Encounters Encounter Location Date Provider Diagnosis [facility] [address] [facility] [address] [place] [phone] 01/31/2023 Yasmeen Jacobs PLAN OF TREATMENT No Information Insurance Providers Payer Name Payer Address Payer Phone Subscriber Number Group Number Insured Name Patient Relationship to Insured Coverage Start Date Coverage End Date [facility] [id number] [address] [address] [place], [place] [id number] Bella Jones Self - patient is the insured MEDICAL (GENERAL) HISTORY Medical History History ICD Code Essential hypertension Osteoporosis Tobacco use disorder Type I diabetes mellitus Contracture of palmar fascia Coronary atherosclerosis of unspecified type of vessel, ute or graft Depressive disorder Hyposmolality and/or hyponatremia Pure hypercholesterolemia Reflux esophagitis Surgical History Surgery Date(Month/Year) Appendectomy Cholecystectomy Tubal ligation Spine surgery Trigger finger release Conization cervix Hospitalization History Reason Date(Month/Year) Seizure related hospitalizations: [facility], 02/03/2019 - 02/06/2019
--- OUTSIDE RECORDS SUMMARY | 2024-01-05 16:48 | XMS_ITS | Encounter Summary ---
Author Organization [facility] Address [address] [place] [address] Care Team Providers Care Women'S Activities Adviser Name Role Phone Elsewhere, Pcp Primary Care Provider Unavailabl e Encounter Details Date Type Department Care Team (Latest Contact Info) Description 09/18/2023 Clinical Communication Department of Rehabilitation Services in [address] [phone] Felipe Saravia, P.TTam [address] [place] [phone] Social History Tobacco Use Types Packs/Day Years [...] on filedocumented in this encounter Care Teams Women'S Activities Adviser Relationship Specialty Start Date End Date Elsewhere, Pcp PCP - General Family Medicine 03/11/21 documented as of this encounter
--- OUTSIDE RECORDS SUMMARY | 2024-01-05 16:48 | XMS_ITS | Encounter Summary ---
Author Organization [facility] Address [address] [place] [address] Care Team Providers Care Boat Canvas Maker And Installer Name Role Phone Elsewhere, Pcp Primary Care [...] on filedocumented in this encounter Care Teams Boat Canvas Maker And Installer Relationship Specialty Start Date End Date Elsewhere, Pcp PCP - General Family Medicine 03/11/21 documented as of this encounter
--- OUTSIDE RECORDS SUMMARY | 2024-01-05 16:48 | XMS_ITS | Referral Summary ---
Author Organization [facility] Address [address] [place] [address] Care Team Providers Care Gifted Program Teacher Name Role Phone Elsewhere, Pcp Primary Care Provider Unavailabl e Source Comments Patient records contain information from all sites at [facility]. For routine questions regarding patient records, call [phone] during business hours, M-F 8:00 AM - 5:00 PM Central Time. Record requests for emergency care only can be directed to [phone] at any time.[facility] Encounters Date Type Department Care Team Description 12/23/2023 5:15 AM CDT Ancillary Procedure Department of Emergency Medicine 12/23/2023 6:51 AM CDT - 12/23/2023 8:33 AM CDT Emergency [facility] [address] [place] [phone] Trent Davila APRN, C.N.P., M.S.N. Abrasion Leg Initial Right (Primary Dx); Wound Lower Leg Open Initial Left; Abuse Cannabis Discharge Disposition: Home or Self Care 10/31/2023 1:36 PM CDT - 10/31/2023 4:28 PM CDT Emergency [facility] [address] [place] [phone] Isidoro Parker APRN, C.N.P., D.N.P. Swelling Leg [...] Right 10/31/2023 Atherosclerotic Heart Diseas e Of [place] Coronary Artery Without Angina Pectoris 09/15/2022 Major Depressive Disorder, Recurrent, Unspecifie d 08/03/2021 Fracture Radius Colles Closed Initial Right 05/03 Overview: Added automatically from request for surgery [id number] Osteoporosis 01/23/2018 Hypertension NOS Diabetes Mellitus Type [...] on file Medical Devices Implanted Type Area Tin Plater Device Identifier Shelf Expiration Date Model / Serial / Lot Plt Wrst Dvr Rt 3h 24.4x51.3 - [id number] Implanted:Qty : 1 on 05/26/2021 by Jorden Tineo M.D. at [facility] Hardware e.g. pins/screws/ rods [employer] [id number] / / 07.05.20. [address] S[address] Sngl 1.6x127 - [id number] Implanted:Qty : 1 on 05/26/2021 by Jorden Tineo M.D. at [facility] Hardware e.g. pins/screws/ rods [employer] [id number] / 07.05.21. 319 Scrw Dvr Fthrd 3.5x12 - [id number] Implanted:Qty : 2 on 05/26/2021 by Jorden Tineo M.D. at [facility] Hardware e.g. pins/screws/ rods [employer] [id number] / 07.05.20. 319 Peg Fix Dvr Pthrd Lng 2.5x22 - [id number] Implanted:Qty : 3 on 05/26/2021 by Jorden Tineo M.D. at [facility] Hardware e.g. pins/screws/ rods Right: Wrist [employer] [id number] / 07.05.21. 319 Peg Fix Dvr Pthrd Lng 2.5x16 - [id number] Implanted:Qty : 1 on 05/26/2021 by Jorden Tineo M.D. at [facility] Hardware e.g. pins/screws/ rods Right: Wrist [employer] [id number] / 07.05.21. 319 Peg Fix Dvr Smth Lng 2.0x18 - [id number] Implanted:Qty : 3 on 05/26/2021 by Jorden Tineo M.D. at [facility] Hardware e.g. pins/screws/ rods Right: Wrist [employer] [id number] / / 07.05.21. 319 Scrw Dvr Fthrd 3.5x13 - [id number] Implanted:Qty : 1 on 05/26/2021 by Jorden Tineo M.D. at [facility] Hardware e.g. pins/screws/ rods [employer] [id number] / 21. 319 Procedures Procedure Name Priority [...] CDT Generic Rals LAB POCT ORDERABLES- MANUAL [facility] [address] [place] [address], [facility] CNFL [facility] in [address] [address] * Leg-Emergency Department Image Exam (12/23/2023 5:15 [...] and management can be found on the BigDeal site. Link [email or web address]/topic/clinical-answers/[email or web address]/[email or web address] [address]2980 Procedure Note Pati Blankenship M.D. - 10/31/2023 [...] management can be found on theAskMayoExpert site. [email or web address]://[email or web address].[email or web address]/topic/clinical-answers/[email or web address]/cpm -2049 1725 IMPRESSION: Negative for acute DVT. [...] Recently Relevant to Health Maintenance Care Teams Gifted Program Teacher Relationship Specialty Start Date End Date Elsewhere, Pcp PCP - General Family Medicine 03/11/21
--- OUTSIDE RECORDS SUMMARY | 2024-01-05 16:48 | XMS_ITS | Encounter Summary ---
Author Organization [facility] Address [address] [place] [address] Care Team Providers Care Shellfish Bed Worker Name Role Phone Elsewhere, Pcp Primary Care Provider Unavailabl e Reason for Visit * Reason Comments Joint Swelling Knee swelling to rig ht. 02/09 pain Encounter Details Date Type Department Care Team (Late st Contact Info) Description 10/31/2023 1:36 PM CDT - 10/31/2023 4:28 PM CDT Emergency [facility] [address] [place] [phone] Isidoro Parker APRN, C.N.P., D.N.P. [address] [place] [phone] Swelling Leg Right (Primary Dx) [...] on this leg. Thank you for utilizing [facility] for your care! documented in [...] Per chart review, recent surgical procedure at [facility]. Please see the hospital discharge below. [...] 03 with imaging. History provided by: Patient hourly sign language interpreter needed/used: no REVIEW OF SYSTEMS Constitutional: [...] Recurrent, Unspecified (HCC) Atherosclerotic Heart Disease Of [place] Coronary Artery Without Angina Pectoris Swelling Leg [...] FIXATION WRIST-Right; Surgeon: Jorden Tineo M.D.; Location: [facility] OR Family Reviewed in Medical Record Social [...] to peripheral arterial disease. This happened at [facility]. She states she woke up this [...] with vascular surgery tomorrow. Isidoro Parker, DNP, EPIDEMIOLOGY INVESTIGATOR, BUDGET ENGINEER-C, AGACNP-BC, ENP-C Emergency Medicine Isidoro Parker APRN, [...] and management can be found on the NEON Concierge site. Link [email or web address]/topic/clinical-answers/[email or web address]/[facility]-204 [address]97 Procedure Note Pati Blankenship M.D. - 10/31/2023 [...] thrombosis and management can be found on theAskMaQuanTemplateExpert site. [email or web address]://[email or web address]/topic/clinical-answers/[email or web address]/[facility] -2049 1725 IMPRESSION: Negative for acute DVT. [...] Right documented in this encounter Care Teams Shellfish Bed Worker Relationship Specialty Start Date End Date Elsewhere, Pcp PCP - General Family Medicine 03/11/21 documented as of this encounter
--- OUTSIDE RECORDS SUMMARY | 2024-01-05 16:48 | XMS_ITS | Encounter Summary ---
Author Organization [facility] Address [address] [place] [address] Care Team Providers Care Elementary [employer] Reading Teacher Name Role Phone Elsewhere, Pcp Primary Care Provider Unavailabl e Reason for Visit * Reason Comments Skin Problem Presents with concer ns for leg wounds. States she smoked too much thc and she is feeling different than usual and needs to get checked out Encounter Details Date Type Department Care Team ([facility] st Contact Info) Description 12/23/2023 6:51 AM CDT - 12/23/2023 8:33 AM CDT [facility] [address] [place] [phone] Trent Davila, HANG, C.N.P., M.S.N. [address] [place] [phone] Abrasion Leg Initial Right (Primary Dx); Wound [...] be sent through Care Everywhere. * Abrasion (Kosovan) * Substance Use Disorder (Kosovan) documented in this encounter Medications at Time [...] encounter ED Notes * Trent Davila N, ETCH OPERATOR SEMICONDUCTOR WAFERS, C.N.P., M.S.N. - 12/23/2023 6:58 AM CDT [...] frye that has been follow-up with the [facility]. Her last appointmen t was [...] clinic regarding her ulcer to the left fyre. Return precautions given. Final Diagnoses: as of [...] Glucose, POCT (12/23/2023 7:50 AM CDT) Pathologist [facility] Glucose, POCT, B 182(H) 70 - 140 mg/dL 12/23/2023 7:50 AM CDT CNFL Blood 12/23/2023 7:50 AM CDT 12/23/2023 7:56 AM CDT Generic [facility]als LAB POCT ORDERABLES- MANUAL [facility] [address] [place] [address], [facility] CNFL [facility] in [address] [address] documented in this encounter Visit Diagnoses Diagnosis Abrasion Leg Initial Right- Primary Wound Lower Leg Open Initial Left Abuse Cannabis documented in this encounter Care Teams Elementary School Reading Teacher Relationship Specialty Start Date End Date Elsewhere, Pcp PCP - General Family Medicine 03/11/21 documented as of this encounter
--- OUTSIDE RECORDS SUMMARY | 2024-01-05 16:48 | XMS_ITS | Clinical Summary ---
Author Organization [facility] Address [place], [place] [address] Care Team Providers Care Oxygen System Tester Name Role Phone [facility] Mauri Bazzi Unavailable Raegan Dumont Unavailable [phone] Parisa Byrd Primary Care Provider [phone] Allergies Active Allergy Reactions Criticality Noted Date [...] Blood Sugar is greater than 400, call 05/02/20 23 Active LORazepam (ATIVAN) 0.5 mg [...] 4 g 11 08/04/19 24 025 Active insulin regular (HumuLIN R Regular U-100 [...] type, unspecified whether angina present, unspecified whether [place] or transplanted heart,Cardiomyopat hy, unspecified type (HC) TAKE 1 AND 1/2 TABLETS BY MOUTH ONCE DAILY 135 Tablet 3 11/23/19 24 Active atorvastatin (LIPITOR) 20 mg tabletIndications: Hyperlipidemia LDL goal <100 Take 1 Tablet (20 mg) by mouth at bedtime. 90 Tablet 1 12/23/19 24 Active sertraline (ZOLOFT) 50 mg tabletIndications: Depression with anxiety TAKE 1 TABLET BY MOUTH DAILY 90 Tablet 01/02/20 24 Active sertraline (ZOLOFT) 50 mg tabletIndications: Depression with anxiety TAKE 1 TABLET BY MOUTH DAILY 90 Tablet 1 08/07/19 24 024 Discontinued atorvastatin (LIPITOR) 20 mg tabletIndications: Hyperlipidemia LDL goal <100 TAKE 1 TABLET BY MOUTH AT BEDTIME 100 Tablet 10/11/19 24 024 Discontinued Active Problems Problem Noted Date [...] 02/02/2023 09/23/2023 Atherosclerotic heart diseas e of [place] coronary artery without angina pectoris 09/15/2022 09/23/2023 Protein-calorie malnutrition 08/03/2021 09/23/2023 Osteomyelitis of great toe of right foot 08/03/2021 09/23/2023 Depression, recurrent 08/03/20212023 DIABETES 05/24/2002 09/23/2023 Encounters Date Type Department Care Team Description 12/31/2023 Refill [facility] [address] [place] [address] Parisa Byrd PA Refill Request (Sertraline) 12/22/2023 Refill [facility] [address] [place] [address] Linsey Andrew MD Refill Request (Atorvastatin) 12/05/2023 1:45 PM CDT Ancillary Procedure [facility] [address] [place] [address] 12/05/2023 12:50 PM CDT Office Visit [facility] [address] [place] [address] Parisa Byrd PA Follow Up (Wound on left leg) 12/04/2023 3:00 PM CDT Office Visit [facility] [address] [place] [address] Bandar Dash MD CV Vascular Est (1 month Follow up: s/p Right femoral endarterectomy with bovine patch 10/24/2023. US SHANE & aorta prior to OV) 12/04/2023 12:12 PM CDT - 12/04/2023 11:59 PM CDT Hospital Encounter [facility] [address] [place] [address] Linsey Andrew MD Cardiomyopathy, unspecified type (HC); Chronic chest pain with high risk for CAD; Claudication of both lower extremities (HC); PVD (peripheral vascular disease) with claudication (HC) 12/04/2023 Travel 11/30/2023 Telephone [facility] [address] [place] [address] Parisa Byrd PA FOLLOW UP (SORE ) 11/22/2023 Refill [facility] [address] [place] [address] Linsey Andrew MD Refill Request (Metoprolol Succinate) 11/21/2023 Refill [facility] [address] [place] [address] Parisa Byrd PA Refill Request (HYDROcodone-acetamin ophen (5-325 mg/tablet)/) 11/20/2023 1:10 PM CDT Office Visit [facility] [address] [place] [address] Parisa Byrd PA Follow Up (Recheck wound and foot) 11/20/2023 Telephone [facility] [address] [place] [address] Parisa Byrd PA Medication Management (Medline Gelatein 20 High protein gelatin- 4 fluid ounce cups-Eat 1 serving (4 oz) daily. /) 11/20/2023 Travel 11/14/2023 Refill [facility] [address] [place] [phone] Dov Willard MD Refill Request (Clopidogrel) 11/09/2023 1:30 PM CDT Office Visit [facility] [id number] [place] [address] [address] [place] [address] Linsey Andrew MD Follow Up (F/u visit. Recent ER visit for R leg swelling./Pt reports feeling ok. /Discuss leg swelling in pain) 11/09/2023 Travel 10/31/[address] [address] Parisa Byrd PA Questions; Concerns 10/31/2023 Nurse Triage [facility] [address] [place] [address] Parisa Byrd PA Post-op 10/30/2023 10:30 AM CDT Office Visit [facility] [address] [place] [address] Parisa Byrd PA Hospital F/U (VASCULAR SURGERY) 10/30/2023 Refill [facility] [address] [place] [address] Parisa Byrd PA Refill Request (Freestyle Twyla 14 Day Sensor) 10/30/2023 Travel 10/27/2023 Patient Outreach [facility] [address] [place] [address] Jacki Hernandez, LATOS[facility] Hospital F/U (LACE 59); Primary RN Care Management 10/24/2023 7:57 AM CDT Anesthesia Event [facility] [address] [place] [address] Caryn Justin MD Hare, Kelly J., [employer] Student 10/24/2023 7:45 AM CDT - 10/24/2023 11:01 AM CDT Surgery [facility] [address] [place] [address] Bandar Dash MD DIAGNOSTIC ANGIOGRAM. 10/24/2023 6:04 AM CDT - 10/26/2023 2:41 PM CDT Hospital Encounter [facility] [address] [place] [address] Bandar Dash MD Post-op pain (Primary Dx) Discharge Disposition: Home Self Care 10/23/2023 8:50 AM CDT Preop Visit [facility] [address] [place] [address] Parisa Byrd PA Preoperative Exam ([place]-Dr. Dash-10/24/23-vas cular surgery) 10/23/2023 Travel 10/18/2023 1:00 PM CDT Ancillary Procedure [facility] [address] [place] [address] 10/17/2023 3:15 PM CDT Office Visit [facility] [address] [place] [address] Huey Bal DPM Follow Up (Bilateral foot pain) 10/17/2023 Travel 10/17/2023 Refill [facility] [address] [place] [address] Parisa Byrd PA Refill Request (Gabapentin 600mg tablets) 10/17/2023 Refill [facility] [address] [place] [address] Naina Turcios MD Refill Request (Lacosamide) 10/11/2023 Telephone [facility] [address] [place] [address] Bandar Dash MD Surgery Scheduled 10/11/2023 Refill [facility] [address] [place] [address] Dov Willard MD Refill Request (Atorvastatin) 10/10/2023 Orders Only [facility] Scanner 1 scan: (1-Ord) DOMINIK, CHEST 1 VIEW PORTABLE, 10/10/2023 10/10/2023 Refill [facility] [address] [place] [address] Lakisha Mcclure MD Refill Request 10/10/2023 Telephone [facility] [address] [place] [address] Bandar Dash MD 10/09/2023 3:30 PM CDT Ancillary Procedure [facility] [address] [place] [address] 10/09/2023 3:15 PM CDT Orders Only [facility] [address] [place] [address] Lab, [facility] 10/09/2023 1:00 PM CDT Office Visit [facility] [address] [place] [address] Bandar Dash MD CV Vascular New ([place] Consult; lower extremity PAD. Referred by HUGH Oseguera, all records in EPIC. CTA not needed per Dr. Dash, U/Ss available in [facility]) 10/09/2023 Travel from Last 3 Months Immunizations Name [...] for age 45-75 11/02/2022 11/02/2021 (Completed o [facility]), 11/29/2018 Medicare Wellness for age 65+ 11/03/2022 11/02/2021 Mammogram for age 45-75 11/09/2022 11/10/19, 01/23/2017, 09/10/2010 COVID-19 vaccine series (2022- season) 2023 04/07/2022, 03/11/2021, 10/12/2020, Additional history [...] 01/23/2018, 03/05/1996 Medical Devices Implanted Type Area Yard Manager Device Identifier Shelf Expiration Date Model / Serial / Lot Tissue Pericardium 0.8x8cm Xenosure - [id number] Implanted:Qty: 1 on 10/24/2023 by Bandar Dash MD at [facility] Cv Implants Right: Femoral Artery [employer] 03/30/2029 0.8P8 / / [id number] Procedures Procedure Name Priority Date/Time Associated Diagnosis [...] KIT PR5 Routine 10/24/2023 7:28 AM CDT [facility] DRSG PR5 Routine 10/24/2023 7:28 AM CDT HCHG DRSG PR1 Routine 10/24/2023 7:28 AM CDT HG TUBING PR20 Routine 10/24/2023 7:28 AM CDT HCHG TUBING PR1 Routine 10/24/2023 7:28 AM CDT [facility] ANES ARTERIAL CATH FOR SAMPLE MONITOR TRANS Routine 10/24/2023 7:28 AM CDT [facility] ANES US GUIDE FOR VASC ACCESS Routine 10/24/2023 7:28 AM CDT [facility] CATH PR5 Routine 10/24/2023 7:28 AM CDT [...] CDT Observation or evaluation for suspected condition XR MAMMO CASSIE BILAT SCREEN Routine 11/09/2021 [...] ULTRASOUND REPORT MARCO A JONES Accession#: ?? [id number] : ?1955 Study Date: ?? 12/04/2023 1:59:17 PM Age: ?68 years ?? Tech: ? CAR Gender: F ?Referring MD: BANDAR DASH Site: [facility] Study performed: ?Lower extremity duplex [...] Phasicity ? +--------+ + + + +--------+-----+ HIGH PRESSURE FIRER PRX ? 138 ? multiphasic ? +--------+ + + + +--------+-----+ HIGH PRESSURE FIRER DST ? 52 ? multiphasic ? +--------+ [...] multiphasic ? +--------+ + + + +--------+-----+ COORDINATE MEASURING EQUIPMENT OPERATOR DST ? 41 ? monophasic ? +--------+ + + + +--------+-----+ DPA ? 31 ? monophasic ? +--------+ + + + +--------+-----+ + + + + LEFT ? Velocity cm/s Phasicity ?? + + + + HIGH PRESSURE FIRER PRX ? 96 ? multiphasic + + + + HIGH PRESSURE FIRER DST ? 88 ? multiphasic + + [...] 43 ? multiphasic + + + + COORDINATE MEASURING EQUIPMENT OPERATOR DST ? 43 ? multiphasic + + [...] ? Index +-----+ +--------+ +-----+ 0.87 ?100 ?COORDINATE MEASURING EQUIPMENT OPERATOR ?110 ? 0.96 +-----+ +--------+ +-----+ 0.97 ?111 ?DPA ?108 ? 0.94 +-----+ +--------+ +-----+ 0.46 ? 53 ? Digit 1 ?63 ? 0.55 +-----+ +--------+ +-----+ Vipin Aggarwal MD. Electronically signed on 12/04/2023 3:41:37 PM This study was performed and interpreted by a service accredited by the Intersocietal Accreditation Commission (IAC/Vascular), [email or web address]/vascular Report generated by [employer]. ??Final ?? Procedure Note Vipin Aggarwal MD - 12/04/2023 VASCULAR ULTRASOUND REPORT MARCO A JONES : 1955 Study Date: 12/04/2023 1:59:17 PM Age: 68 years Tech: CAR Gender: F Referring MD: BANDAR DASH Site: [facility] Study performed: Lower extremity duplex [...] Phasicity Phasicity +--------+ + + + +--------+-----+ HIGH PRESSURE FIRER PRX 138 multiphasic +--------+ + + + +--------+-----+ HIGH PRESSURE FIRER DST 52 multiphasic +--------+ + + + [...] 68 multiphasic +--------+ + + + +--------+-----+ COORDINATE MEASURING EQUIPMENT OPERATOR DST 41 monophasic +--------+ + + + +--------+-----+ DPA 31 monophasic +--------+ + + + +--------+-----+ + + + + LEFT Velocity cm/s Phasicity + + + + HIGH PRESSURE FIRER PRX 96 multiphasic + + + + HIGH PRESSURE FIRER DST 88 multiphasic + + + + PFA 64 multiphasic + + + + SFA PRX 112 multiphasic + + + + SFA PRX MID 100 multiphasic + + + + SFA MID 82 multiphasic + + + + SFA DST 134 multiphasic + + + + OBDULIA PRX 54 multiphasic + + + + OBDULIA DST 43 multiphasic + + + + COORDINATE MEASURING EQUIPMENT OPERATOR DST 43 multiphasic + + + + DPA 25 multiphasic + + + + Criteria: Stenosis V. Ratio Mild <50% <2.0 Moderate 50-74% > or = 2.0 Severe 75-99% > or = 4.0 Occluded 100% no detectable flow Pressures +-----+ +--------+ +-----+ RIGHT (mmHg) LEFT (mmHg) +-----+ +--------+ +-----+ Index 115 Brachial 114 Index +-----+ +--------+ +-----+ 0.87 100 COORDINATE MEASURING EQUIPMENT OPERATOR 110 0.96 +-----+ +--------+ +-----+ 0.97 111 DPA 108 0.94 +-----+ +--------+ +-----+ 0.46 53 Digit 1 63 0.55 +-----+ +--------+ +-----+ Vipin Aggarwal MD. Electronically signed on 12/04/2023 3:41:37 PM This study was performed and interpreted by a service accredited by theIntersocietal Accreditation Commission (IAC/Vascular),[email or web address]/vascular Report generated by [employer]. Final Bandar Luis Dash MD US * US AORTA ILIACS IVC WITH DUPLEX (12/04/2023 1:21 PM CDT) Anatomical Region Laterality Modality AORTA, Abdomen Ultrasound 12/04/2023 1:17 PM CDT Narrative 12/04/2023 3:32 PM CDT VASCULAR ULTRASOUND REPORT MARCO A JONES Accession#: ?? [id number] : ?1955 Study Date: ?? 12/04/2023 1:17:26 PM Age: ?68 years ?? Tech: ? CAR Gender: F ?Referring MD: BANDAR DASH Site: [facility] Study performed: ?Aorta Indication for [...] Accreditation Commission (IAC/Vascular), www.[email or web address]/vascular Report generated by [employer]. ??Final ?? Procedure Note Vipin Aggarwal MD - 12/04/2023 VASCULAR ULTRASOUND REPORT MARCO A JONES : 1955 Study Date: 12/04/2023 1:17:26 PM Age: 68 years Tech: CAR Gender: F Referring MD: BANDAR DASH Site: [facility] Study performed: Aorta Indication for [...] theIntersocietal Accreditation Commission (IAC/Vascular),www.[email or web address]/vascular Report generated by [employer]. Final Bandar Luis Dash MD US * MR CARDIAC WWO (12/04/2023 8:06 AM CDT) Anatomical Region Laterality Modality HEART, THORAX Magnetic Resonan ce 12/04/2023 6:32 AM CDT Narrative 12/04/2023 8:46 AM CDT ?[facility] ? CMR Report ??MRN: ?[id number] ?Name: ? MARCO A JONES ?: ? 1955-Dec-21 ?Scan Date: ?Accession Number: ?[id number] ?Status: ?Final ? Electronically signed by Andrew [...] ? Apical Lateral ? Normal/Hyper None ? [place] ? Normal/Hyper None ? + + + [...] SCAN INFO ===== GENERAL ----- --- ?SCANNER ?PLUMBER'S HELPER: ??SIEMENS ?MODEL: ??Aera ?CONTRAST AGENT ?TYPE: ??Gadavist ?GD CONCENTRATION: ??1.0 M ?SETUP ?REASON(S) FOR SCAN: ??Ischemic vs nonischemic ?REFERRING PHYSICIAN: ??LINSEY ANDREW ?ATTENDING PHYSICIAN: ??LINSEY ANDREW BILLING ===== Patient Account ?[id number] ICD10 Codes ?I42.9, R07.9, G89.29, Z91.89 Report generated by [employer], a product of [employer] Procedure Note Andrew Thompson MD - 12/04/2023 [facility] CMR Report Name: MARCO A JONES : Scan Date: Accession Number: [id number] Status: Final Electronically signed by Andrew Thompson [...] Inferior Normal/Hyper None Apical Lateral Normal/Hyper None [place] Normal/Hyper None + + + + +----- [...] SCAN INFO ===== GENERAL ----- --- SCANNER PLUMBER'S HELPER: SIEMENS MODEL: Aera CONTRAST AGENT TYPE: Gadavist GD CONCENTRATION: 1.0 M SETUP REASON(S) FOR SCAN: Ischemic vs nonischemic REFERRING PHYSICIAN: LINSEY ANDREW ATTENDING PHYSICIAN: LINSEY ANDREW BILLING ===== Patient Account [id number] ICD10 Codes I42.9, R07.9, G89.29, Z91.89 Report generated by [employer], a product of [employer] Linsey Andrew MD MR * (ABNORMAL) CBC WITH AUTO DIFFERENTIAL (10/30/2023 11:16 AM CDT) Pathologist [facility] WHITE BLOOD COUNT 9.9 4.5 - 11.0 thou/cu mm 10/30/2023 12:21 PM CDT [facility] RED BLOOD COUNT 3.39(L) 4.00 - 5.20 mil/cu mm 10/30/2023 12:21 PM CDT [facility] HEMOGLOBIN 10.8(L) 12.0 - 16.0 g/dL 10/30/2023 12:21 PM CDT [facility] HEMATOCRIT 32.9(L) 33.0 - 51.0 % 10/30/2023 12:21 PM CDT [facility] MCV 97 80 - 100 fL 10/30/2023 12:21 PM CDT [facility] MCH 31.9 26.0 - 34.0 pg 10/30/2023 12:21 PM CDT [facility] MCHC 32.8 32.0 - 36.0 g/dL 10/30/2023 12:21 PM CDT [facility] RDW 12.6 11.5 - 15.5 % 10/30/2023 12:21 PM CDT [facility] PLATELET COUNT 396 140 - 440 thou/cu mm 10/30/2023 12:21 PM CDT [facility] MPV 8.9 6.5 - 11.0 fL 10/30/2023 12:21 PM CDT [facility] Blood BLOOD SPECIMEN / Unknown Venipuncture / Unknown 10/30/2023 11:16 AM CDT 10/30/2023 11:17 AM CDT Parisa REESE HEMATOLOGY Performing Organization Address City/[facility]/ZIP Co de Phone Number [facility] [address] [place] [address], [place] [phone] * RED CELL MORPHOLOGY (10/30/2023 11:16 AM CDT) Pathologist [facility] RBC COMMENT RBC morphology appears normal RBC morphology appears normal, RBC morphology within normal limits for newborns. 10/30/2023 12:20 PM CDT [facility] Blood BLOOD SPECIMEN / Unknown Venipuncture / Unknown 10/30/2023 11:16 AM CDT 10/30/2023 11:17 AM CDT Parisa REESE HEMATOLOGY Performing Organization Address [facility]/ZIP Co de Phone Number [facility] [address] [place] [address], [place] [phone] * PLATELET ESTIMATE (10/30/2023 11:16 AM CDT) Pathologist [facility] PLATELET ESTIMATE Adequate Adequate, No estimate 10/30/2023 12:20 PM CDT [facility] Blood BLOOD SPECIMEN / Unknown Venipuncture / Unknown 10/30/2023 11:16 AM CDT 10/30/2023 11:17 AM CDT Parisa REESE HEMATOLOGY Performing Organization Address City/[facility]/ZIP Co de Phone Number [facility] [address] [place] [address], [place] [phone] * MANUAL DIFFERENTIAL (10/30/2023 11:16 AM CDT) Pathologist [facility] % NEUTROPHILS 65.0 % 10/30/2023 12:20 PM CDT [facility] % LYMPHOCYTES 24.0 % 10/30/2023 12:20 PM CDT [facility] % MONOCYTES 8.0 % 10/30/2023 12:20 PM CDT [facility] % EOSINOPHILS 3.0 % 10/30/2023 12:20 PM CDT [facility] % BASOPHILS 0.0 % 10/30/2023 12:20 PM CDT [facility] NEUTROPHILS ABSOLUTE 6.4 1.7 - 7.0 thou/cu mm 10/30/2023 12:20 PM CDT [facility] LYMPHOCYTES ABSOLUTE 2.4 0.9 - 2.9 thou/cu mm 10/30/2023 12:20 PM CDT [facility] MONOCYTES ABSOLUTE 0.8 <0.9 thou/cu mm 10/30/2023 12:20 PM CDT [facility] EOSINOPHILS ABSOLUTE 0.3 <0.5 thou/cu mm 10/30/2023 12:20 PM CDT [facility] BASOPHILS ABSOLUTE 0.0 <0.3 thou/cu mm 10/30/2023 12:20 PM CDT [facility] Blood BLOOD SPECIMEN / Unknown Venipuncture / Unknown 10/30/2023 11:16 AM CDT 10/30/2023 11:17 AM CDT Parisa REESE HEMATOLOGY [facility] [address] [place] [address], * IRON PLUS IRON BINDING CAP (10/30/2023 11:16 AM CDT) IRON 56 37 - 145 ug/dL 10/31/2023 6:22 AM CDT [facility] UIBC (UNSATURATED) 225 112 - 347 ug/dL 10/31/2023 6:22 AM CDT [facility] IRON BINDING CAPACITY 281 250 - 400 ug/dL 10/31/2023 6:22 AM CDT [facility] IRON,% SATURATION 20 14 - 50 % 10/31/2023 6:22 AM CDT [facility] Blood BLOOD SPECIMEN / Unknown Venipuncture / Unknown 10/30/2023 11:16 AM CDT 10/30/2023 11:17 AM CDT Parisa REESE CHEMISTRY [facility] [address] [place] [address], * FERRITIN (10/30/2023 11:16 AM CDT) FERRITIN 105.0 15.0 - 150.0 ng/mL 10/31/2023 6:22 AM CDT [facility] Blood BLOOD SPECIMEN / Unknown Venipuncture / Unknown 10/30/2023 11:16 AM CDT 10/30/2023 11:17 AM CDT Parisa REESE CHEMISTRY Performing Organization Address [facility] Co de Phone Number [facility] [address] [place] [address], * (ABNORMAL) BASIC METABOLIC PANEL (10/30/2023 11:16 AM CDT) Only the most recent of4 resultswithin the time period is included. Pathologist [facility] SODIUM 137 136 - 145 mmol/L 10/31/2023 6:56 AM CDT [facility] POTASSIUM 4.0 3.5 - 5.1 mmol/L 10/31/2023 6:56 AM T [facility] CHLORIDE 98 98 - 107 mmol/L 10/31/2023 6:56 AM T [facility] CO2,TOTAL 25 22 - 29 mmol/L 10/31/2023 6:56 AM T [facility] ANION GAP 14 5 - 18 10/31/2023 6:56 AM T [facility] GLUCOSE 215(H) 70 - 99 mg/dL 10/31/2023 6:56 AM T [facility] CALCIUM 9.2 8.8 - 10.2 mg/dL 10/31/2023 6:56 AM T [facility] BUN 16 8 - 23 mg/dL 10/31/2023 6:56 AM T [facility] CREATININE 1.04(H) 0.50 - 0.90 mg/dL 10/31/2023 6:56 AM CDT [facility] BUN/CREAT RATIO 15 10 - 20 6:56 AM CDT [facility] eGFR 59(L) >90 mL/min/1.7 3m2 10/31/2023 6:56 AM CDT [facility] Comment:As of 2021, [...] CDT Parisa REESE CHEMISTRY Performing Organization Address City/[facility]/ZIP Co de Phone Number [facility] [address] [place] [address], * (ABNORMAL) GLUCOSE METER (10/26/2023 11:35 AM CDT) Only the most recent of15 resultswithin the time period is included. GLUCOSE METER 224(H) 65 - 100 mg/dL 10/26/2023 11:35 AM CDT [facility] Blood BLOOD SPECIMEN / Unknown 10/26/2023 11:35 AM CDT 10/26/2023 11:35 AM CDT Bandar Dash MD CHEMISTRY [facility] [address] [place] [address], [place] * (ABNORMAL) CBC W PLT NO DIFF (10/26/2023 11:05 AM CDT) Only the most recent of2 resultswithin the time period is included. WHITE BLOOD COUNT 6.1 4.5 - 11.0 thou/cu mm 10/26/2023 11:25 AM CDT [facility] RED BLOOD COUNT 2.72(L) 4.00 - 5.20 mil/cu mm 10/26/2023 11:25 AM CDT [facility] HEMOGLOBIN 8.5(L) 12.0 - 16.0 g/dL 10/26/2023 11:25 AM CDT [facility] HEMATOCRIT 26.1(L) 33.0 - 51.0 % 10/26/2023 11:25 AM CDT [facility] MCV 96 80 - 100 fL 10/26/2023 11:25 AM CDT [facility] MCH 31.3 26.0 - 34.0 pg 10/26/2023 11:25 AM CDT [facility] MCHC 32.6 32.0 - 36.0 g/dL 10/26/2023 11:25 AM CDT [facility] RDW 12.6 11.5 - 15.5 % 10/26/2023 11:25 AM CDT [facility] PLATELET COUNT 235 140 - 440 thou/cu mm 10/26/2023 11:25 AM CDT [facility] MPV 9.6 6.5 - 11.0 fL 10/26/2023 11:25 AM CDT [facility] NRBC 0.0 % 10/26/2023 11:25 AM CDT [facility] ABS NRBC 0.0 thou /cu mm 10/26/2023 11:25 AM CDT [facility] Blood BLOOD SPECIMEN / Unknown Venipuncture / Unknown 10/26/2023 11:05 AM CDT 10/26/2023 11:16 AM CDT Linda Horn NP HEMATOLOGY [facility] [address] [place] [address], * POTASSIUM (10/26/2023 11:05 AM CDT) POTASSIUM 5.1 3.5 - 5.1 mmol/L 10/26/2023 11:44 AM CDT [facility] Blood BLOOD SPECIMEN / Unknown Venipuncture / Unknown 10/26/2023 11:05 AM CDT 10/26/2023 11:16 AM CDT Taylor Vences RN CHEMISTRY [facility] [address] [place] [address], * SCAN-CARDIAC STRIP (10/26/2023 7:27 AM CDT) [...] - 16.0 g/dL 10/25/2023 8:01 AM CDT [facility] MCV 96 80 - 100 fL 10/25/2023 8:01 AM CDT [facility] Blood BLOOD SPECIMEN / Unknown Butterfly / Unknown 10/25/2023 7:27 AM CDT 10/25/2023 7:57 AM CDT Narrative [facility] - 10/25/2023 8:01 AM CDT Call if Hgb less than 10. Ad Vargas DO HEMATOLOGY [facility] [address] [place] [id number], [place] * SCAN-CARDIAC STRIP (10/25/2023 5:57 AM CDT) Scanner OTHER * SCAN-CARDIAC STRIP (10/24/2023 2:35 PM CDT) Scanner OTHER * PV OTHER PROCEDURE (10/24/2023 10:46 AM CDT) Anatomical Region Laterality Modality Other Narrative 10/24/2023 10:46 AM CDT Bandar Dash MD ? 10/24/2023 11:16 AM OPERATIVE REPORT SURGEON Bandar Dash MD PROCUREMENT COST COORDINATOR Anselmo Vargas MD (Fellow) ANESTHESIA General PREOPERATIVE [...] I was present for the entire operation. MEDICAID ELIGIBILITY SPECIALIST MEASURES We utilized approximately 24 cc of Optiray contrast and fluoroscopy time was 1.4 minutes (34.2 mGy). Bandar Dash MD CV IMAGING * (ABNORMAL) COMPREHENSIVE BLOOD GAS ARTERIAL (10/24/2023 10:40 AM CDT) PH, ARTERIAL 7.41 7.35 - 7.45 10/24/2023 10:40 AM CDT [facility] PCO2, ARTERIAL 46(H) 32 - 45 mmHg 10/24/2023 10:40 AM T [facility] PO2, ARTERIAL 200(H) 83 - 108 mmHg 10/24/2023 10:40 AM CDT [facility] HCO3, ARTERIAL 29(H) 21 - 28 mmol/L 10/24/2023 10:40 AM T [facility] BASE EXCESS, ARTERIAL 4.0(H) -2.0 - 3.0 10/24/2023 10:40 AM T [facility] O2 SATURATION, ARTERIAL 99(H) 94 - 98 % 10/24/2023 10:40 AM CDT [facility] PATIENT TEMPERATURE 37.0 Degrees C 10/24/2023 10:40 AM T [facility] COLLECTION SITE ARTERIAL LINE 10/24/2023 10:40 AM CDT [facility] HEMOGLOBIN,BLOO D GAS 8.7(L) 12.0 - 16.0 g/dL 10/24/2023 10:40 AM T [facility] SODIUM 132(L) 136 - 145 mmol/L 10/24/2023 10:40 AM T [facility] POTASSIUM 4.2 3.5 - 5.1 mmol/L 10/24/2023 10:40 AM T [facility] CHLORIDE 104 98 - 107 mmol/L 10/24/2023 10:40 AM T [facility] Blood BLOOD SPECIMEN / Unknown 10/24/2023 10:40 AM CDT 10/24/2023 10:40 AM CDT Bandar Dash MD CHEMISTRY Performing Organization Address City/[facility]/ZIP Co de Phone Number [facility] [address] [place] [phone], * (ABNORMAL) ACTIVATED CLOTTING TIME [id number] ACT (10/24/2023 10:38 AM CDT) Only the most recent of3 resultswithin the time period is included. ACTIVATED CLOTTING TIME, POCT 249(H) 74 - 125 sec 10/24/2023 11:28 AM CDT [facility] Blood BLOOD SPECIMEN / Unknown 10/24/2023 10:38 AM CDT 10/24/2023 11:28 AM CDT Bandar Dash MD HEMATOLOGY Performing Organization Address [facility] Co de Phone Number [facility] [address] [address], [place] * ETT (10/24/2023 8:31 AM CDT) Narrative Taylor Gaona, [employer] Student - 10/24/2023 8:31 AM CDT Taylor Gaona [employer] Student ? 10/24/2023 ??8:31 AM Procedure: ETT [...] NOW QTc 513 ms BEYOND NOW P [place] 79 degrees BEYOND NOW R [place] 21 degrees BEYOND NOW T [place] 85 degrees BEYOND NOW 10/24/2023 6:41 AM CDT 10/24/2023 1:37 PM CDT Narrative BEYOND NOW - 10/24/2023 1:37 PM CDT Test Indication: PREOP Fannie REESE EKG ORD BEYOND NOW [place], [place] * Type and Screen (10/24/2023 6:40 AM CDT) ABORH O Rh Negative 10/24/2023 7:41 AM CDT [facility] BLOOD BANK ANTIBODY SCREEN Negative Negative 10/24/2023 7:41 AM CDT [facility] BLOOD BANK SPECIMEN EXPIRATION DATE/TIME 10/27/23 23:59 10/24/2023 7:41 AM CDT [facility] B[facility]OD [facility] Blood BLOOD SPECIMEN / Unknown Venipuncture / Unknown 10/24/2023 6:40 AM CDT 10/24/2023 6:51 AM CDT Fannie REESE BLOOD BANK [facility] B[facility]OD BANK [address] [place] [address], * SCAN-CARDIAC STRIP (10/24/2023 12:00 AM CDT) [...] CDT ECHOCARDIOGRAM MARCO A JONES ?Accession#: ?? [id number] : ?1955 68 years Study Date: ?? 10/18/2023 1:06:17 PM Gender: F ? BP: ? 169/69 mmHg Height: 155.00 cm ? BSA: ?1.43 m? ? ? Weight: 47.00 kg ?Tech: ? MTS ?Referring MD: NAINA TURCIOS Site: ? [facility] Reading Location: MOBILE OP Patient Location: Outpatient. [...] . This study was interpreted by an [facility] accredited facility. ??Final ?? Procedure Note Carter Herman MD - 10/18/2023 ECHOCARDIOGRAM MARCO A JONES : 1955 68 years Study Date: 10/18/2023 1:06:17 PM Gender: F BP: 169/69 mmHg Height: 155.00 cm BSA: 1.43 m? ? ? Weight: 47.00 kg Tech: MENDY Referring MD: NAINA TURCIOS Site: [facility] Reading Location: MOBILE OP Patient Location: Outpatient. [...] . This study was interpreted by an [facility] accredited facility. Final Naina Turcios MD ECHO [...] artery due to calcified and noncalcified plaque, hnvo-qz-micsfauy severity left Common femoral artery coral reef [...] 70 percent stenosis around Maxx`s canal, and [id number] percent multifocal stenosis of the popliteal artery. [...] iliac artery due to calcified andnoncalcified plaque, evhk-pe-yxwhimwm severity left Common femoral arterycoral reef plaque, [...] 10/09/2023 4:42:38 PM (Electronically Signed) Bandar Luis Dash MD CT * (ABNORMAL) CREATININE,ISTAT (10/09/2023 3:48 PM CDT) CREATININE, POCT 0.90 0.57 - 1.11 mg/dL 10/09/2023 3:50 PM CDT [facility] Comment:Caution: Patients ta mariaelena Hydroxyurea have falsely increased iStat Creatinine results. Verify creatinine results ordering a Creatinine (78787.2) eGFR 70(L) >90 mL/min/1.7 3m2 10/09/2023 3:50 PM CDT [facility] Comment:As of 2021, eG FR is calculated by the CKD-EPI creatinine equation without race adjustment. eGFR can be influenced by muscle mass, exercise, and diet. The reported eGFR is an estimation only and is only applicable if the renal function is stable. Blood BLOOD SPECIMEN / Unknown 10/09/2023 3:48 PM CDT 10/09/2023 3:50 PM CDT Parisa REESE CHEMISTRY [facility] [address] [place] [address], * XR MAMMO CASSIE BILAT SCREEN (11/09/2021 [...] care provider. XR MAMMO CASSIE BILAT SCREEN [[id number]] CLINICAL HISTORY: ??This is an asymptomatic 66 y.o. patient. INDICATION FOR EXAM: Mammogram Screening. TECHNIQUE: CC & MLO views were obtained. ??This study was evaluated with the assistance of Computer-Aided Detection. Breast Tomosynthesis was used in interpretation. COMPARISON FILM: Yes 01/23/17 [employer] 09/10/10 [facility] FINDINGS: ??The breasts are extremely dense, [...] Alendronate (Fosamax) medication treatment. Destiny Medellin PA-C [facility] 11/15/2021 Narrative 11/15/2021 8:42 AM CDT For Patients: Results are automatically released to your [employer] [facility] account once available, in compliance with federal regulations. This means that you may see your results before your provider has had a chance to review them. Please allow 2-3 business days for your provider to comment on the results. XR DXA Bone Mineral Density (BMD) EXAM LOCATION: [address] [address] PATIENT NAME: Marco A Jones DATE OF [...] INDICATION: Follow-up of existing osteoporosis COMPARISON DATE(S): 2017 DXA scans are compared to prior studies for a patient only when the two (or more) studies were performed on the same scanner. It is not possible to compare data generated on one scanner to data from another because there are not standards in DXA equipment. This applies even if the two scanners are made by the same shutdown planner. PROCEDURE: Dual-energy x-ray absorptiometry performed with routine [...] REFLEX MEASURED LDL (11/02/2021 1:10 PM CDT) [facility] CHOLESTEROL,TOTAL 121 100 - 199 mg/dL 11/02/2021 11:38 PM CDT [facility] TRIGLYCERIDES 91 <150 mg/dL 11/02/2021 11:38 PM CDT [facility] HDL CHOLESTEROL 45 >40 mg/dL 11:38 PM CDT [facility] NON-HDL CHOLESTEROL 76 <145 mg/dl 11/02/2021 11:38 PM CDT [facility] CHOL/HDL RATIO 2.69 <4.50 11/02/2021 11:38 PM CDT [facility] LDL CHOLESTEROL 58 <=130 mg/dL 11/02/2021 11:38 PM CDT [facility] VLDL CHOLESTEROL 18 <=30 mg/dL 11/02/2021 11:38 PM CDT [facility] PROVIDER ORDERED STATUS RANDOM 11/02/2021 11:38 PM CDT [facility] Blood BLOOD SPECIMEN / Unknown Venipuncture / Unknown 11/02/2021 1:10 PM CDT 11/02/2021 1:10 PM CDT Naina Turcios MD CHEMISTRY [facility] [address] [place] [address], * OCCULT BLOOD IFOBT STOOL (11/29/2018 3:36 PM CDT) STOOL BLOOD ,IFOBT Negative Negative 12/07/2018 9:42 AM CDT [facility] Stool STOOL SPECIMEN / Unknown Non-Blood / Unknown 11/29/2018 3:36 PM CDT 12/06/2018 3:36 PM CDT Naina Turcios MD LABORATORY [facility] [address] [place] [address], * ANTI HCV (01/04/2010 1:58 PM CDT) ANTI HCV Non-reacti ve [facility] Blood specimen (specimen) BLOOD SPECIMEN / Unknown 01/04/2010 1:58 PM CDT 01/04/2010 1:46 PM CDT Naina Turcios MD SEND OUTS [facility] [place] ZIP [address] [address] from Last 3 Months or Most Recently [...] Preferences, Provider to review later Care Teams Oxygen System Tester Relationship Specialty Start Date End Date Paris[place] [address] PCP - General Physician Supervisor Alteration Workroom 05/16/23 [facility] [address] [place] [address] 02/04/23 Raegan Dumont COTA [address] [place] [address] Occupational Therapy 05/05/23
--- OUTSIDE RECORDS SUMMARY | 2024-01-05 16:48 | XMS_ITS | Clinical Summary ---
Author Organization [facility] Address [address] [place] [address] Care Team Providers Care Mica Plate Layer Hand Name Role Phone Elsewhere, Pcp Primary Care Provider Unavailabl e Source Comments Patient records contain information from all sites at [facility]. For routine questions regarding patient records, call [phone] during business hours, M-F 8:00 AM - 5:00 PM Central Time. Record requests for emergency care only can be directed to [phone] at any time.[facility] Allergies Active Allergy Reactions Criticality Noted Date [...] Right 10/31/2023 Atherosclerotic Heart Diseas e Of [place] Coronary Artery Without Angina Pectoris 09/15/2022 Major Depressive Disorder, Recurrent, Unspecifie d 08/03/2021 Fracture Radius Colles Closed Initial Right 05/03 Overview: Added automatically from request for surgery [id number] Osteoporosis 01/23/2018 Hypertension NOS Diabetes Mellitus Type 2 Encounters Date Type Department Care Team Description 12/23/2023 6:51 AM CDT - 12/23/2023 8:33 AM CDT [facility] [address] [place] [phone] Trent Davila APRN, C.N.P., M.S.N. Abrasion Leg Initial Right (Primary Dx); Wound Lower Leg Open Initial Left; Abuse Cannabis Discharge Disposition: Home or Self Care 12/23/2023 5:15 AM CDT Ancillary Procedure Department of Emergency Medicine 10/31/2023 1:36 PM CDT - 10/31/2023 4:28 PM CDT [facility] [address] [place] [phone] Isidoro Pakrer APRN, C.N.P., D.N.P. Swelling Leg Right (Primary [...] (Annual) 07/03/2023 Tobacco Cessation counseling 09/16/2023 09/15/2022 Influenza Vaccine (#1) 2024 , 04/07/2022, 03/23/2020, Additional history exists Creatinine Level (Kidney Fun ction Test) 10/29/2024 10/30/2023, 10/25/2023, 10/24/2023, Additional history exists Potassium Level 10/29/2024 10/30/2023, 2 11/2023, 10/25/2023, Additional history exists Sodium Level 10/29/2024 10/30/2023, 10/02, 10/24/2023, Additional history exists Lipid (Cholesterol) Screening 11/02/2026, 12/08/2020, 08/20/2018 DTaP,Tdap,and Td Vaccines (3 - Td or Tdap) 01/24/2028 01/23/2018, 10/23/2006 Zoster Vaccines Completed 10/19/2018, 08/20/2018 Pneumococcal vaccine (65+ years) Completed 04/07/2022, 01/23/2018, 03/05/1996 Medical Devices Implanted Type Area Video Machines Mechanic Device Identifier Shelf Expiration Date Model / Serial / Lot Plt Wrst Dvr Rt 3h 24.4x51.3 - [id number] Implanted:Qty : 1 on 05/26/2021 by Jorden Tineo M.D. at [facility] Hardware e.g. pins/screws/ rods [employer] [id number] / 07.05.20. [address] S[address] Sngl 1.6x127 - [id number] Implanted:Qty : 1 on 05/26/2021 by Jorden Tineo M.D. at [facility] Hardware e.g. pins/screws/ rods [employer] [id number] / 21. 319 Scrw Dvr Fthrd 3.5x12 - [id number] Implanted:Qty : 2 on 05/26/2021 by Jorden Tineo M.D. at [facility] Hardware e.g. pins/screws/ rods [employer] [id number] / 07.05.20. 319 Peg Fix Dvr Pthrd Lng 2.5x22 - [id number] Implanted:Qty : 3 on 05/26/2021 by Jorden Tineo M.D. at [facility] Hardware e.g. pins/screws/ rods Right: Wrist [employer] [id number] / 21. 319 Peg Fix Dvr Pthrd Lng 2.5x16 - [id number] Implanted:Qty : 1 on 05/26/2021 by Jorden Tineo M.D. at [facility] Hardware e.g. pins/screws/ rods Right: Wrist [employer] [id number] / 07.05.20. 319 Peg Fix Dvr Smth Lng 2.0x18 - [id number] Implanted:Qty : 3 on 05/26/2021 by Jorden Tineo M.D. at [facility] Hardware e.g. pins/screws/ rods Right: Wrist [employer] [id number] / 21. 319 Scrw Dvr Fthrd 3.5x13 - [id number] Implanted:Qty : 1 on 05/26/2021 by Jorden Tineo M.D. at [facility] Hardware e.g. pins/screws/ rods [employer] [id number] / 21. 319 Procedures Procedure Name Priority [...] (ABNORMAL) Glucose, POCT (12/23/2023 7:50 AM CDT) [facility] Glucose, POCT, B 182(H) 70 - 140 mg/dL 12/23/2023 7:50 AM CDT [facility] Blood 12/23/2023 7:50 AM CDT 12/23/2023 7:56 AM CDT [facility] POCT ORDERABLES- MANUAL Performing Organization Address City/State/[facility] Co de Phone Number [facility] [address] [place] [address], [facility] [address] [address] * Leg-Emergency Department Image Exam (12/23/2023 5:15 [...] and management can be found on the Whats[employer]exx site. Link [email or web address]/topic/clinical-answers/[email or web address] Procedure Note Pati Blankenship M.D. - 10/31/2023 [...] can be found on theAskMayoExpert site. [email or web address]/topic/clinical-answers/[email or web address]/[email or web address] 1725 IMPRESSION: Negative for acute DVT. [...] Recently Relevant to Health Maintenance Care Teams Mica Plate Layer Hand Relationship Specialty Start Date End Date Elsewhere, Pcp PCP - General Family Medicine 03/11/21
--- OUTSIDE RECORDS SUMMARY | 2024-01-05 16:48 | XMS_ITS ---
Author Organization [facility] Address [address] [place] [address] Care Team Providers Care Pumping Supervisor Name Role Phone Unavailable Unavailable Unavailable Surgery Details Not on file Complications Check Surgery Details section. Procedure Estimated Blood Loss Check Surgery Details section. Procedure Findings Check Surgery Details section. Procedure Specimens Taken Check Surgery Details section.
--- NOTE | 2024-01-05 17:24 | CRLHL7_ITS ---
For Patients: As a result of the Cures Act, medical imaging exams and procedure reports are released immediately into your electronic medical record. You may view this report before your referring provider. If you have questions, please contact your health care provider. INDICATION: Fall. Elbow pain and swelling. COMPARISON: None. FINDINGS/IMPRESSION: Left elbow, two views. There is an acute-appearing transverse fracture through the olecranon, with approximately 15 millimeters of proximal retraction of the proximal fragment and moderate overlying soft tissue swelling. No elbow dislocation or other acute finding is noted. Dictated by Evgeny Robb MD @ 01/05/2024 7:02:30 PM Dictated by: Evgeny Robb MD @ 01/05/2024 19:02:46 (Electronically Signed)
--- NOTE | 2024-01-05 17:24 | CRLHL7_ITS ---
For Patients: As a result of the Cures Act, medical imaging exams and procedure reports are released immediately into your electronic medical record. You may view this report before your referring provider. If you have questions, please contact your health care provider. INDICATION: Fall. Lateral chest wall pain. COMPARISON: 10/10/2023 chest radiograph. FINDINGS/IMPRESSION: Chest, one view and left ribs, three views. No acute rib fracture is identified. There is no pneumothorax or pleural fluid collection. Cardiac contour is within normal limits. Lungs appear clear. Dictated by Evgeny Robb MD @ 01/05/2024 7:17:23 PM Dictated by: Evgeny Robb MD @ 01/05/2024 19:17:47 (Electronically Signed)
--- NOTE | 2024-01-05 17:24 | CRLHL7_ITS ---
For Patients: As a result of the Century Cures Act, medical imaging exams and procedure reports are released immediately into your electronic medical record. You may view this report before your referring provider. If you have questions, please contact your health care provider. Indication: Fall, pain, mid thigh Comparison: None available. Technique: AP and lateral views right femur were obtained. Findings: Questionable age-indeterminate deformities of the right medial superior and inferior pubic rami. No evidence of displaced femur injury. The joint spaces are grossly preserved. The soft tissues are unremarkable. Impression: Questionable age-indeterminate deformities of the partially visualized medial superior and inferior pubic rami which may represent nondisplaced fractures. No evidence of displaced femur fracture. Consider follow-up with additional single view of the pelvis for improved characterization of additional injuries. Dictated by Quincy Vargas MD @ 01/05/2024 7:36:08 PM (Electronically Signed)
--- NOTE | 2024-01-05 17:24 | CRLHL7_ITS ---
For Patients: As a result of the Cures Act, medical imaging exams and procedure reports are released immediately into your electronic medical record. You may view this report before your referring provider. If you have questions, please contact your health care provider. INDICATION: FALL, NECK PAIN CT CERVICAL SPINE WITHOUT CONTRAST TECHNIQUE: Multidetector axial CT imaging was performed through the cervical spine, without contrast. Sagittal and coronal reconstructions were generated. FINDINGS: No acute fractures are identified. Multilevel degenerative change is noted in the cervical spine, including degenerative disc disease at C5-6 and scattered facet joint degenerative changes. Osseous alignment is within normal limits and no acute subluxation is seen. Prevertebral soft tissues are unremarkable. Included portions of the airway and lung apices are within normal limits. IMPRESSION: 1. No fracture, subluxation, or other acute finding identified. 2. Cervical spondylosis, as noted above. AMARJIT RO MD [facility] Please note that all CT scans at this facility use dose modulation, iterative reconstruction, and/or weight-based dosing when appropriate to reduce radiation dose to as low as reasonably achievable. Dictated by: Evgeny Ro MD @ 01/05/2024 19:11:41 (Electronically Signed)
--- NOTE | 2024-01-05 17:24 | CRLHL7_ITS ---
For Patients: As a result of the Century Cures Act, medical imaging exams and procedure reports are released immediately into your electronic medical record. You may view this report before your referring provider. If you have questions, please contact your health care provider. INDICATION: FALL CT HEAD WITHOUT CONTRAST TECHNIQUE: Multiple axial CT images were performed through the head without intravenous contrast administration. COMPARISON: No previous studies are currently available for comparison. FINDINGS: No acute intracranial hemorrhage is identified. No extra-axial collections are evident and there is no mass effect or midline shift. There is mild diffuse age-related brain atrophy. Ventricular size and configuration are within normal limits for the patient`s age. Nichols-white differentiation is within normal limits. There is patchy hypodensity in the periventricular white matter, a nonspecific finding which most likely reflects chronic small vessel ischemic change. Intracranial atherosclerotic vascular calcifications are noted. Osseous structures are within normal limits and no fractures are seen. Included portions of the paranasal sinuses and mastoid air cells are normally aerated. IMPRESSION: 1. No acute intracranial abnormality identified. 2. Mild age-related brain atrophy, white matter hypodensity consistent with chronic small vessel ischemic change, and intracranial atherosclerotic vascular calcifications. AMARJIT RO MD [facility] Please note that all CT scans at this facility use dose modulation, iterative reconstruction, and/or weight-based dosing when appropriate to reduce radiation dose to as low as reasonably achievable. Dictated by: Evgeny Ro MD @ 01/05/2024 19:06:29 (Electronically Signed)
--- OUTSIDE RECORDS SUMMARY | 2024-01-05 17:48 | XMS_ITS | Encounter Summary ---
Author Organization [facility] Address [address] [place] [address] Care Team Providers Care Risk Management Director Name Role Phone Elsewhere, Pcp Primary [...] on filedocumented in this encounter Care Teams Risk Management Director Relationship Specialty Start Date End Date Elsewhere, Pcp PCP - General Family Medicine 03/11/21 documented as of this encounter
--- OUTSIDE RECORDS SUMMARY | 2024-01-05 17:48 | XMS_ITS | Clinical Summary ---
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 09/15/2022 09/23/2023 Protein-calorie malnutrition 08/03/2021 09/23/2023 Osteomyelitis of great toe of right foot 08/03/2021 09/23/2023 Depression, recurrent 08/03/20212023 DIABETES 05/24/2002 09/23/2023 Encounters Date Type Department Care Team Description 12/31/2023 Refill [facility] [address] [place] [address] Parisa Byrd PA Refill Request (Sertraline) 12/22/2023 Refill [facility] [address] [place] [address] Lnisey Andrew MD Refill Request (Atorvastatin) 12/05/2023 1:45 PM CDT Ancillary Procedure [facility] [address] [place] [address] 12/05/2023 12:50 PM CDT Office Visit [facility] [address] [place] [address] aPrisa Byrd PA Follow Up (Wound on left leg) 12/04/2023 3:00 PM CDT [place] [facility] [address] [place] [address] Bandar Dash MD CV Vascular Est (1 month Follow up: s/p Right femoral endarterectomy with bovine patch 10/24/2023. US SHANE & aorta prior to OV) 12/04/2023 12:12 PM CDT - 12/04/2023 11:59 PM CDT Hospital Encounter [facility] [address] [place] [address] Linsey Andrew MD Cardiomyopathy, unspecified type (HC); Chronic chest pain with high risk for CAD; Claudication of both lower extremities (HC); PVD (peripheral vascular disease) with claudication (HC) 12/04/2023 Travel 11/30/2023 Telephone [facility] [address] [place] [address] Parisa Byrd PA FOLLOW UP (SORE ) 11/22/2023 Refill [facility] [address] [place] [address] Linsey Andrew MD Refill Request (Metoprolol Succinate) 11/21/2023 Refill [facility] [address] [place] [address] Parisa Byrd PA Refill Request (HYDROcodone-acetamin ophen (5-325 mg/tablet)/) 11/20/2023 1:10 PM CDT Office Visit [facility] [address] [place] [address] Parisa Byrd PA Follow Up (Recheck wound and foot) 11/20/2023 Telephone [facility] [address] [place] [address] Parisa Byrd PA Medication Management (Medline Gelatein 20 High protein gelatin- 4 fluid ounce cups-Eat 1 serving (4 oz) daily. /) 11/20/2023 Travel 11/14/2023 [place] [facility] [address] [place] [phone] Dov Willard MD Refill Request (Clopidogrel) 11/09/2023 1:30 PM CDT Office Visit [facility] [id number] [place] [address] [address] [place] [address] Linsey Andrew MD Follow Up (F/u visit. Recent ER visit for R leg swelling./Pt reports feeling ok. /Discuss leg swelling in pain) 11/09/2023 Travel 10/31/[address] [address] Parisa Byrd PA Questions; Concerns 10/31/2023 Nurse Triage [facility] [address] [place] [address] Parisa Byrd PA Post-op 10/30/2023 10:30 AM CDT Office Visit [facility] [address] [place] [address] Parisa Byrd PA Hospital F/U (VASCULAR SURGERY) 10/30/2023 Refill [facility] [address] [place] [address] Parisa Byrd PA Refill Request (Freestyle Twyla 14 Day Sensor) 10/30/2023 Travel 10/27/2023 Patient Outreach [facility] [address] [place] [address] Jacki Hernandez, LATOSHA Hospital F/U (LACE 59); Primary RN Care Management 10/24/2023 7:57 AM CDT Anesthesia Event [facility] [address] [place] [address] Caryn Justin MD Hare, Kelly J., [employer] Student 10/24/2023 7:45 AM CDT - 10/24/2023 11:01 AM CDT Surgery [facility] [address] [place] [address] Bandar Dash MD DIAGNOSTIC ANGIOGRAM. 10/24/2023 6:04 AM CDT - 10/26/2023 2:41 PM CDT Hospital Encounter [facility] [address] [place] [address] Bandar Dash MD Post-op pain (Primary Dx) Discharge Disposition: Home Self Care 10/23/2023 8:50 AM CDT Preop Visit [facility] [address] [place] [address] Parisa Byrd PA Preoperative Exam ([place]-Dr. Dash-10/24/23-vas cular surgery) 10/23/2023 Travel 10/18/2023 1:00 PM CDT Ancillary Procedure [facility] [address] [place] [address] 10/17/2023 3:15 PM CDT Office Visit [facility] [address] [place] [address] Huey Bal DPM Follow Up (Bilateral foot pain) 10/17/2023 Travel 10/17/2023 Refill [facility] [address] [place] [address] Parisa Byrd PA Refill Request (Gabapentin 600mg tablets) 10/17/2023 Refill [facility] [address] [place] [address] Naina Turcios MD Refill Request (Lacosamide) 10/11/2023 Telephone [facility] [address] [place] [address] Bandar Dash MD Surgery Scheduled 10/11/2023 Ref[place] [facility] [address] [place] [address] Dov Willard MD Refill Request (Atorvastatin) 10/10/2023 Orders Only [facility] Scanner 1 scan: (1-Ord) DOMINIK, CHEST 1 VIEW PORTABLE, 10/10/2023 10/10/2023 Refill [facility] [address] [place] [address] Lakisha Mcclure MD Refill Request 10/10/2023 Telephone [facility] [address] [place] [address] Bandar Dash MD 10/09/2023 3:30 PM CDT Ancillary Procedure [facility] [address] [place] [address] 10/09/2023 3:15 PM CDT Orders Only [facility] [address] [place] [address] Lab, [facility] 10/09/2023 1:00 PM CDT Office Visit [facility] [address] [place] [address] Bandar Dash MD CV Vascular [place] ([place] [...] for age 45-75 11/02/2022 11/02/2021 (Completed o [facility]), 11/29/2018 Medicare Wellness for [...] 01/23/2018, 03/05/1996 Medical Devices Implanted Type Area 911 Dispatcher Device Identifier Shelf Expiration Date Model / Serial / Lot Tissue Pericardium 0.8x8cm Xenosure - [id number] Implanted:Qty: 1 on 10/24/2023 by Bandar Dash MD at [facility] Cv Implants Right: Femoral Artery [employer] 03/30/2029 0.8P8 / / [id number] Procedures Procedure Name Priority Date/Time Associated Diagnosis [...] KIT PR5 Routine 10/24/2023 7:28 AM CDT [facility] DRSG PR5 Routine 10/24/2023 7:28 AM CDT [facility] DRSG PR1 Routine 10/24/2023 7:28 AM CDT HG TUBING PR20 Routine 10/24/2023 7:28 AM CDT [facility] TUBING PR1 Routine 10/24/2023 7:28 AM CDT [facility] ANES ARTERIAL CATH FOR SAMPLE MONITOR TRANS Routine 10/24/2023 7:28 AM CDT [facility] ANES US GUIDE FOR VASC ACCESS Routine 10/24/2023 7:28 AM CDT [facility] CATH PR5 Routine 10/24/2023 7:28 AM CDT [...] ULTRASOUND REPORT MARCO A JONES Accession#: ?? [id number] : ?1955 Study Date: ?? 12/04/2023 1:59:17 PM Age: ?68 years ?? Tech: ? CAR Gender: F ?Referring MD: BANDAR DASH Site: [facility] Study performed: ?Lower extremity [...] Phasicity ? +--------+ + + + +--------+-----+ NAIL KEGGER PRX ? 138 ? multiphasic ? +--------+ + + + +--------+-----+ NAIL KEGGER DST ? 52 ? multiphasic ? +--------+ [...] multiphasic ? +--------+ + + + +--------+-----+ SENIOR PRODUCER DST ? 41 ? monophasic ? +--------+ + + + +--------+-----+ DPA ? 31 ? monophasic ? +--------+ + + + +--------+-----+ + + + + LEFT ? Velocity cm/s Phasicity ?? + + + + NAIL KEGGER PRX ? 96 ? multiphasic + + + + NAIL KEGGER DST ? 88 ? multiphasic + + [...] 43 ? multiphasic + + + + SENIOR PRODUCER DST ? 43 ? multiphasic + + [...] ? Index +-----+ +--------+ +-----+ 0.87 ?100 ?SENIOR PRODUCER ?110 ? 0.96 +-----+ +--------+ +-----+ 0.97 ?111 ?DPA ?108 ? 0.94 +-----+ +--------+ +-----+ 0.46 ? 53 ? Digit 1 ?63 ? 0.55 +-----+ +--------+ +-----+ Vipin Aggarwal MD. Electronically signed on 12/04/2023 3:41:37 PM This study was performed and interpreted by a service accredited by the Intersocietal Accreditation Commission (IAC/Vascular), [email or web address].org/vascular Report generated by [employer]. ??Final ?? Procedure Note Vipin Aggarwal MD - 12/04/2023 VASCULAR ULTRASOUND REPORT MARCO A JONES : 1955 Study Date: 12/04/2023 1:59:17 PM Age: 68 years Tech: CAR Gender: F Referring MD: BANDAR DASH Site: [facility] Study performed: Lower extremity [...] Phasicity Phasicity +--------+ + + + +--------+-----+ NAIL KEGGER PRX 138 multiphasic +--------+ + + + +--------+-----+ NAIL KEGGER DST 52 multiphasic +--------+ + + + [...] 68 multiphasic +--------+ + + + +--------+-----+ SENIOR PRODUCER DST 41 monophasic +--------+ + + + +--------+-----+ DPA 31 monophasic +--------+ + + + +--------+-----+ + + + + LEFT Velocity cm/s Phasicity + + + + NAIL KEGGER PRX 96 multiphasic + + + + NAIL KEGGER DST 88 multiphasic + + + + PFA 64 multiphasic + + + + SFA PRX 112 multiphasic + + + + SFA PRX MID 100 multiphasic + + + + SFA MID 82 multiphasic + + + + SFA DST 134 multiphasic + + + + OBDULIA PRX 54 multiphasic + + + + OBDULIA DST 43 multiphasic + + + + SENIOR PRODUCER DST 43 multiphasic + + + + DPA 25 multiphasic + + + + Criteria: Stenosis V. Ratio Mild <50% <2.0 Moderate 50-74% > or = 2.0 Severe 75-99% > or = 4.0 Occluded 100% no detectable flow Pressures +-----+ +--------+ +-----+ RIGHT (mmHg) LEFT (mmHg) +-----+ +--------+ +-----+ Index 115 Brachial 114 Index +-----+ +--------+ +-----+ 0.87 100 SENIOR PRODUCER 110 0.96 +-----+ +--------+ +-----+ 0.97 111 DPA 108 0.94 +-----+ +--------+ +-----+ 0.46 53 Digit 1 63 0.55 +-----+ +--------+ +-----+ Viipn Aggarwal MD. Electronically signed on 12/04/2023 3:41:37 PM This study was performed and interpreted by a service accredited by theIntersocietal Accreditation Commission (IAC/Vascular),www.[email or web address]/vascular Report generated by [employer]. Final Bandar Luis Dash MD US * US AORTA ILIACS IVC WITH DUPLEX (12/04/2023 1:21 PM CDT) Anatomical Region Laterality Modality AORTA, Abdomen Ultrasound 12/04/2023 1:17 PM CDT Narrative 12/04/2023 3:32 PM CDT VASCULAR ULTRASOUND REPORT MACRO A JONES Accession#: ?? [id number] : ?1955 Study Date: ?? 12/04/2023 1:17:26 PM Age: ?68 years ?? Tech: ? CAR Gender: F ?Referring MD: BANDAR DASH Site: [facility] Study performed: ?Aorta Indication [...] Accreditation Commission (IAC/Vascular), www.intersocietal.org/vascular Report generated by [employer]. ??Final ?? Procedure Note Vipin Aggarwal MD - 12/04/2023 VASCULAR ULTRASOUND REPORT MARCO A JONES : 1955 Study Date: 12/04/2023 1:17:26 PM Age: 68 years Tech: CAR Gender: F Referring MD: BANDAR DASH Site: [facility] Study performed: Aorta Indication [...] theIntersocietal Accreditation Commission (IAC/Vascular),www.[email or web address].org/vascular Report generated by [employer]. Final Bandar Luis Dash MD US * MR CARDIAC WWO (12/04/2023 8:06 AM CDT) Anatomical Region Laterality Modality HEART, THORAX Magnetic Resonan ce 12/04/2023 6:32 AM CDT Narrative 12/04/2023 8:46 AM CDT ?[facility] ? CMR Report ??MRN: ?[id number] ?Name: ? MARCO A JONES ?: ? 1955-Dec-21 ?Scan Date: ?Accession Number: ?[id number] ?Status: ?Final ? Electronically signed by Andrew [...] ? Apical Lateral ? Normal/Hyper None ? [place] ? Normal/Hyper None ? + + + [...] SCAN INFO ===== GENERAL ----- --- ?SCANNER ?WINDOW GLASS INSTALLER: ??SIEMENS ?MODEL: ??Aera ?CONTRAST AGENT ?TYPE: ??Gadavist ?GD CONCENTRATION: ??1.0 M ?SETUP ?REASON(S) FOR SCAN: ??Ischemic vs nonischemic ?REFERRING PHYSICIAN: ??LINSEY ANDREW ?ATTENDING PHYSICIAN: ??LINSEY ANDREW BILLING ===== Patient Account ?[id number] ICD10 Codes ?I42.9, R07.9, G89.29, Z91.89 Report generated by [email or web address], a product of [employer] Procedure Note Andrew Thompson MD - 12/04/2023 [facility] CMR Report Name: MARCO A JONES : Scan Date: Accession Number: [id number] Status: Final Electronically signed by Andrew Thompson [...] Inferior Normal/Hyper None Apical Lateral Normal/Hyper None [place] Normal/Hyper None + + + + +----- [...] SCAN INFO ===== GENERAL ----- --- SCANNER WINDOW GLASS INSTALLER: SIEMENS MODEL: Aera CONTRAST AGENT TYPE: Gadavist GD CONCENTRATION: 1.0 M SETUP REASON(S) FOR SCAN: Ischemic vs nonischemic REFERRING PHYSICIAN: LINSEY ANDREW ATTENDING PHYSICIAN: LINSEY ANDREW BILLING ===== Patient Account [id number] ICD10 Codes I42.9, R07.9, G89.29, Z91.89 Report generated by [employer], a product of [employer] Linsey Andrew MD MR * (ABNORMAL) CBC WITH AUTO DIFFERENTIAL (10/30/2023 11:16 AM CDT) Pathologist [facility] WHITE BLOOD COUNT 9.9 4.5 - 11.0 [...] CDT Parisa REESE HEMATOLOGY Performing Organization Address City/[facility]/ZIP Co de Phone Number [facility] [address] [place] [address], [place] [phone] * RED CELL MORPHOLOGY (10/30/2023 11:16 AM CDT) Pathologist [facility] RBC COMMENT RBC morphology appears normal RBC morphology appears normal, RBC morphology within normal limits for newborns. 10/30/2023 12:20 PM CDT [facility] Blood BLOOD SPECIMEN / Unknown Venipuncture / Unknown 10/30/2023 11:16 AM CDT 10/30/2023 11:17 AM CDT Parisa REESE HEMATOLOGY Performing Organization Address [facility]/ZIP Co de Phone Number [facility] [address] [place] [address], [place] [phone] * PLATELET ESTIMATE (10/30/2023 11:16 AM CDT) Pathologist [facility] PLATELET ESTIMATE Adequate Adequate, No estimate 10/30/2023 12:20 PM CDT [facility] Blood BLOOD SPECIMEN / Unknown Venipuncture / Unknown 10/30/2023 11:16 AM CDT 10/30/2023 11:17 AM CDT Parisa REESE HEMATOLOGY Performing Organization Address City/[facility]/ZIP Co de Phone Number [facility] [address] [place] [address], [place] [phone] * MANUAL DIFFERENTIAL (10/30/2023 11:16 AM CDT) Pathologist [facility] % NEUTROPHILS 65.0 % 10/30/2023 12:20 PM [...] HEMATOLOGY [facility] [address] [place] [address], * IRON PLUS IRON BINDING CAP (10/30/2023 11:16 AM CDT) IRON 56 37 - 145 ug/dL 10/31/2023 6:22 AM CDT [facility] UIBC (UNSATURATED) 225 112 - 347 ug/dL 10/31/2023 6:22 AM CDT [facility] IRON BINDING CAPACITY 281 250 - 400 ug/dL 10/31/2023 6:22 AM CDT [facility] IRON,% SATURATION 20 14 - 50 % 10/31/2023 6:22 AM CDT [facility] Blood BLOOD SPECIMEN / Unknown Venipuncture / Unknown 10/30/2023 11:16 AM CDT 10/30/2023 11:17 AM CDT Parisa REESE CHEMISTRY [facility] [address] [place] [address], * FERRITIN (10/30/2023 11:16 AM CDT) FERRITIN 105.0 15.0 - 150.0 ng/mL 10/31/2023 6:22 AM CDT [facility] Blood BLOOD SPECIMEN / Unknown Venipuncture / Unknown 10/30/2023 11:16 AM CDT 10/30/2023 11:17 AM CDT Parisa REESE CHEMISTRY Performing Organization Address [facility] Co de Phone Number [facility] [address] [place] [address], * (ABNORMAL) BASIC METABOLIC PANEL (10/30/2023 11:16 AM CDT) Only the most recent of4 resultswithin the time period is included. Pathologist [facility] SODIUM 137 136 - 145 mmol/L 10/31/2023 6:56 AM CDT [facility] POTASSIUM 4.0 3.5 - 5.1 mmol/L 10/31/2023 6:56 AM T [facility] CHLORIDE 98 98 - 107 mmol/L 10/31/2023 6:56 AM T [facility] CO2,TOTAL 25 22 - 29 mmol/L 10/31/2023 6:56 AM T [facility] ANION GAP 14 5 - 18 10/31/2023 6:56 AM T [facility] GLUCOSE 215(H) 70 - 99 mg/dL 10/31/2023 6:56 AM T [facility] CALCIUM 9.2 8.8 - 10.2 mg/dL 10/31/2023 6:56 AM T [facility] BUN 16 8 - 23 mg/dL 10/31/2023 6:56 AM T [facility] CREATININE 1.04(H) 0.50 - 0.90 mg/dL 10/31/2023 6:56 AM CDT [facility] BUN/CREAT RATIO 15 10 - 20 6:56 AM CDT [facility] eGFR 59(L) >90 mL/min/1.7 3m2 10/31/2023 6:56 AM CDT [facility] Comment:As of 2021, eG [...] CDT Parisa REESE CHEMISTRY Performing Organization Address City/[facility]/ZIP Co de Phone Number [facility] [address] [place] [address], * (ABNORMAL) GLUCOSE METER (10/26/2023 11:35 AM CDT) Only the most recent of15 resultswithin the time period is included. GLUCOSE METER 224(H) 65 - 100 mg/dL 10/26/2023 11:35 AM CDT [facility] Blood BLOOD SPECIMEN / Unknown 10/26/2023 11:35 AM CDT 10/26/2023 11:35 AM CDT Bandar Dash MD CHEMISTRY [facility] [address] [place] [address], [place] * (ABNORMAL) CBC W PLT NO DIFF (10/26/2023 11:05 AM CDT) Only the most recent of2 resultswithin the time period is included. WHITE BLOOD COUNT 6.1 4.5 - 11.0 thou/cu mm 10/26/2023 11:25 AM CDT [facility] RED BLOOD COUNT 2.72(L) 4.00 - 5.20 mil/cu mm 10/26/2023 11:25 AM CDT [facility] HEMOGLOBIN 8.5(L) 12.0 - 16.0 g/dL 10/26/2023 11:25 AM CDT [facility] HEMATOCRIT 26.1(L) 33.0 - 51.0 % 10/26/2023 11:25 AM CDT [facility] MCV 96 80 - 100 fL 10/26/2023 11:25 AM CDT [facility] MCH 31.3 26.0 - 34.0 pg 10/26/2023 11:25 AM CDT [facility] MCHC 32.6 32.0 - 36.0 g/dL 10/26/2023 11:25 AM CDT [facility] RDW 12.6 11.5 - 15.5 % 10/26/2023 11:25 AM CDT [facility] PLATELET COUNT 235 140 - 440 thou/cu mm 10/26/2023 11:25 AM CDT [facility] MPV 9.6 6.5 - 11.0 fL 10/26/2023 11:25 AM CDT [facility] NRBC 0.0 % 10/26/2023 11:25 AM CDT [facility] ABS NRBC 0.0 thou /cu mm 10/26/2023 11:25 AM CDT [facility] Blood BLOOD SPECIMEN / Unknown Venipuncture / Unknown 10/26/2023 11:05 AM CDT 10/26/2023 11:16 AM CDT Linda Horn NP HEMATOLOGY [facility] [address] [place] [address], * POTASSIUM (10/26/2023 11:05 AM CDT) POTASSIUM 5.1 3.5 - 5.1 mmol/L 10/26/2023 11:44 AM CDT [facility] Blood BLOOD SPECIMEN / Unknown Venipuncture / Unknown 10/26/2023 11:05 AM CDT 10/26/2023 11:16 AM CDT Taylor Vences RN CHEMISTRY [facility] [address] [place] [address], * SCAN-CARDIAC STRIP (10/26/2023 7:27 AM CDT) [...] - 16.0 g/dL 10/25/2023 8:01 AM CDT [facility] MCV 96 80 - 100 fL 10/25/2023 8:01 AM CDT [facility] Blood BLOOD SPECIMEN / Unknown Butterfly / Unknown 10/25/2023 7:27 AM CDT 10/25/2023 7:57 AM CDT Narrative [facility] - 10/25/2023 8:01 AM CDT Call if Hgb less than 10. Ad Vargas DO HEMATOLOGY [facility] [address] [place] [address], [place] * SCAN-CARDIAC STRIP (10/25/2023 5:57 AM CDT) Scanner OTHER * SCAN-CARDIAC STRIP (10/24/2023 2:35 PM CDT) Scanner OTHER * PV OTHER PROCEDURE (10/24/2023 10:46 AM CDT) Anatomical Region Laterality Modality Other Narrative 10/24/2023 10:46 AM CDT Bandar Dash MD ? 10/24/2023 11:16 AM OPERATIVE REPORT SURGEON Bandar Dash MD SURGICAL TRAINING SPECIALIST Anselmo Vargas MD (Fellow) ANESTHESIA General PREOPERATIVE [...] I was present for the entire operation. STITCH BONDER MACHINE OPERATOR HELPER MEASURES We utilized approximately 24 cc of Optiray contrast and fluoroscopy time was 1.4 minutes (34.2 mGy). Bandar Dash MD CV IMAGING * (ABNORMAL) COMPREHENSIVE BLOOD GAS ARTERIAL (10/24/2023 10:40 AM CDT) PH, ARTERIAL 7.41 7.35 - 7.45 10/24/2023 10:40 AM CDT [facility] PCO2, ARTERIAL 46(H) 32 - 45 mmHg 10/24/2023 10:40 AM T [facility] PO2, ARTERIAL 200(H) 83 - 108 mmHg 10/24/2023 10:40 AM CDT [facility] HCO3, ARTERIAL 29(H) 21 - 28 mmol/L 10/24/2023 10:40 AM T [facility] BASE EXCESS, ARTERIAL 4.0(H) -2.0 - 3.0 10/24/2023 10:40 AM T [facility] O2 SATURATION, ARTERIAL 99(H) 94 - 98 % 10/24/2023 10:40 AM CDT [facility] PATIENT TEMPERATURE 37.0 Degrees C 10/24/2023 10:40 AM T [facility] COLLECTION SITE ARTERIAL LINE 10/24/2023 10:40 AM CDT [facility] HEMOGLOBIN,BLOO D GAS 8.7(L) 12.0 - 16.0 g/dL 10/24/2023 10:40 AM T [facility] SODIUM 132(L) 136 - 145 mmol/L 10/24/2023 10:40 AM T [facility] POTASSIUM 4.2 3.5 - 5.1 mmol/L 10/24/2023 10:40 AM T [facility] CHLORIDE 104 98 - 107 mmol/L 10/24/2023 10:40 AM T [facility] Blood BLOOD SPECIMEN / Unknown 10/24/2023 10:40 AM CDT 10/24/2023 10:40 AM CDT Bandar Dash MD CHEMISTRY Performing Organization Address City/[facility]/ZIP Co de Phone Number [facility] [address] [place] [address], * (ABNORMAL) ACTIVATED CLOTTING TIME [id number] ACT (10/24/2023 10:38 AM CDT) Only the most recent of3 resultswithin the time period is included. ACTIVATED CLOTTING TIME, POCT 249(H) 74 - 125 sec 10/24/2023 11:28 AM CDT [facility] Blood BLOOD SPECIMEN / Unknown 10/24/2023 10:38 AM CDT 10/24/2023 11:28 AM CDT Bandar Dash MD HEMATOLOGY Performing Organization Address [facility] Co de Phone Number [facility] [address] [address], [place] * ETT (10/24/2023 8:31 AM CDT) Narrative Taylor Gaona, [employer] Student - 10/24/2023 8:31 AM CDT Taylor Gaona P[employer] Student ? 10/24/2023 ??8:31 AM Procedure: ETT [...] NOW QTc 513 ms BEYOND NOW P [place] 79 degrees BEYOND NOW R [place] 21 degrees BEYOND NOW T [place] 85 degrees BEYOND NOW 10/24/2023 6:41 AM CDT 10/24/2023 1:37 PM CDT Narrative [facility] NOW - 10/24/2023 1:37 PM CDT Test Indication: PREOP Fannie REESE EKG ORD BEYOND NOW [place], [place] * Type and Screen (10/24/2023 6:40 AM CDT) ABORH O Rh Negative 10/24/2023 7:41 AM CDT [facility] BLOOD BANK ANTIBODY SCREEN Negative Negative 10/24/2023 7:41 AM CDT [facility] B[facility]OD [facility] SPECIMEN EXPIRATION DATE/TIME 10/27/23 23:59 10/24/2023 7:41 AM CDT [facility] B[facility]OD [facility] Blood BLOOD SPECIMEN / Unknown Venipuncture / Unknown 10/24/2023 6:40 AM CDT 10/24/2023 6:51 AM CDT [facility] BLOOD BANK [facility] BLOOD BANK [address] [place] [address], * SCAN-CARDIAC STRIP (10/24/2023 12:00 AM CDT) [...] CDT ECHOCARDIOGRAM MARCO A JONES ?Accession#: ?? [id number] : ?1955 68 years Study Date: ?? 10/18/2023 1:06:17 PM Gender: F ? BP: ? 169/69 mmHg Height: 155.00 cm ? BSA: ?1.43 m? ? ? Weight: 47.00 kg ?Tech: ? MTS ?Referring MD: NAINA TURCIOS Site: ? [facility] Reading Location: MOBILE OP Patient Location: Outpatient. [...] . This study was interpreted by an [facility] accredited facility. ??Final ?? Procedure Note Carter Herman MD - 10/18/2023 ECHOCARDIOGRAM MARCO A JONES : 1955 68 years Study Date: 10/18/2023 1:06:17 PM Gender: F BP: 169/69 mmHg Height: 155.00 cm BSA: 1.43 m? ? ? Weight: 47.00 kg Tech: MENDY Referring MD: NAINA TURCIOS Site: [facility] Reading Location: MOBILE OP Patient Location: Outpatient. [...] . This study was interpreted by an [facility] accredited facility. Final Naina Turcios [...] artery due to calcified and noncalcified plaque, lhba-os-mhcadryh severity left Common femoral artery coral reef [...] 70 percent stenosis around Maxx`s canal, and zouyiejimpss32 percent multifocal stenosis of the popliteal artery. [...] iliac artery due to calcified andnoncalcified plaque, agvh-od-szjnuxdr severity left Common femoral arterycoral reef plaque, [...] results. Verify creatinine results ordering a Creatinine (49149.2) eGFR 70(L) >90 mL/min/1.7 3m2 10/09/2023 3:50 [...] CHEMISTRY [facility] [address] [place] [address], * XR MAMMO CASSIE BILAT SCREEN (11/09/2021 [...] care provider. XR MAMMO CASSIE BILAT SCREEN [[id number]] CLINICAL HISTORY: ??This is an asymptomatic 66 y.o. patient. INDICATION FOR EXAM: Mammogram Screening. TECHNIQUE: CC & MLO views were obtained. ??This study was evaluated with the assistance of Computer-Aided Detection. Breast Tomosynthesis was used in interpretation. COMPARISON FILM: Yes 01/23/17 [facility] 09/10[facility]10 [facility] FINDINGS: ??The breasts are extremely dense, [...] Alendronate (Fosamax) medication treatment. Destiny Medellin PA-C [facility] 11/15/2021 Narrative 11/15/2021 8:42 AM CDT For Patients: Results are automatically released to your [facility] (BRAIN) account once available, in compliance with federal regulations. This means that you may see your results before your provider has had a chance to review them. Please allow 2-3 business days for your provider to comment on the results. XR DXA Bone Mineral Density (BMD) EXAM LOCATION: [address] [address] PATIENT NAME: Marco A Jones DATE OF [...] two scanners are made by the same cow buyer. PROCEDURE: Dual-energy x-ray absorptiometry performed with routine [...] REFLEX MEASURED LDL (11/02/2021 1:10 PM CDT) [facility] CHOLESTEROL,TOTAL 121 100 - 199 mg/dL 11/02/2021 11:38 PM CDT [facility] TRIGLYCERIDES 91 <150 mg/dL 11/02/2021 11:38 PM CDT [facility] HDL CHOLESTEROL 45 >40 mg/dL 11:38 PM CDT [facility] NON-HDL CHOLESTEROL 76 <145 mg/dl 11/02/2021 11:38 PM CDT [facility] CHOL/HDL RATIO 2.69 <4.50 11/02/2021 11:38 PM CDT [facility] LDL CHOLESTEROL 58 <=130 mg/dL 11/02/2021 11:38 PM CDT [facility] VLDL CHOLESTEROL 18 <=30 mg/dL 11/02/2021 11:38 PM CDT [facility] PROVIDER ORDERED STATUS RANDOM 11/02/2021 11:38 PM CDT [facility] Blood BLOOD SPECIMEN / Unknown Venipuncture / Unknown 11/02/2021 1:10 PM CDT 11/02/2021 1:10 PM CDT Naina Turcios MD CHEMISTRY [facility] [address] [place] [address], * OCCULT BLOOD IFOBT STOOL (11/29/2018 3:36 PM CDT) STOOL BLOOD ,IFOBT Negative Negative 12/07/2018 9:42 AM CDT [facility] Stool STOOL SPECIMEN / Unknown Non-Blood / Unknown 11/29/2018 3:36 PM CDT 12/06/2018 3:36 PM CDT Naina Turcios MD LABORATORY [facility] [address] [place] [address], * ANTI HCV (01/04/2010 1:58 PM CDT) ANTI HCV Non-reacti ve [facility] Blood specimen (specimen) BLOOD SPECIMEN / Unknown 01/04/2010 1:58 PM CDT 01/04/2010 1:46 PM CDT Naina Turcios MD SEND OUTS [facility] INTERNAL ZIP [address] [address] from Last 3 Months or Most Recently [...] Preferences, Provider to review later Care Teams Pst Specialist Relationship Specialty Start Date End Date Parisa Byrd [place] [address] PCP - General Physician Equipment Lead 05/16/23 [facility] [address] [place] [address] 02/04/23 Raegan Dumont COTA [address] [place] [address] Occupational Therapy 05/05/23
--- OUTSIDE RECORDS SUMMARY | 2024-01-05 17:48 | XMS_ITS | Clinical Summary ---
Author Organization [facility] Address [address] [place] [address] Care Team Providers Care Appraisal Analyst Name Role Phone Elsewhere, Pcp Primary Care Provider Unavailabl e Source Comments Patient records contain information from all sites at [facility]. For routine questions regarding patient records, call [phone] during business hours, M-F 8:00 AM - 5:00 PM Central Time. Record requests for emergency care only can be directed to [phone] at any time.[facility] Allergies Active Allergy Reactions Criticality Noted [...] Right 10/31/2023 Atherosclerotic Heart Diseas e Of [place] Coronary Artery Without Angina Pectoris 09/15/2022 Major Depressive Disorder, Recurrent, Unspecifie d 08/03/2021 Fracture Radius Colles Closed Initial Right 05/03 Overview: Added automatically from request for surgery [id number] Osteoporosis 01/23/2018 Hypertension NOS Diabetes Mellitus Type 2 Encounters Date Type Department Care Team Description 12/23/2023 6:51 AM CDT - 12/23/2023 8:33 AM CDT [facility] [address] [place] [phone] Trent Davila APRN, C.N.P., M.S.N. Abrasion Leg Initial Right (Primary Dx); Wound Lower Leg Open Initial Left; Abuse Cannabis Discharge Disposition: Home or Self Care 12/23/2023 5:15 AM CDT Ancillary Procedure Department of Emergency Medicine 10/31/2023 1:36 PM CDT - 10/31/2023 4:28 PM CDT [facility] [address] [place] [phone] Isidoro Parker APRN, C.N.P., D.N.P. Swelling Leg [...] 01/23/2018, 03/05/1996 Medical Devices Implanted Type Area Milk Hauler Device Identifier Shelf Expiration Date Model / Serial / Lot Plt Wrst Dvr Rt 3h 24.4x51.3 - [id number] Implanted:Qty : 1 on 05/26/2021 by Jorden Tineo M.D. at [facility] Hardware e.g. pins/screws/ rods [employer] [id number] / / 07.05.20. [address] S[address] Sngl 1.6x127 - [id number] Implanted:Qty : 1 on 05/26/2021 by Jorden Tineo M.D. at [facility] Hardware e.g. pins/screws/ rods [employer] [id number] / 21. 319 Scrw Dvr Fthrd 3.5x12 - [id number] Implanted:Qty : 2 on 05/26/2021 by Jorden Tineo M.D. at [facility] Hardware e.g. pins/screws/ rods [employer] [id number] / 07.05.20. 319 Peg Fix Dvr Pthrd Lng 2.5x22 - [id number] Implanted:Qty : 3 on 05/26/2021 by Jorden Tineo M.D. at [facility] Hardware e.g. pins/screws/ rods Right: Wrist [employer] [id number] / 21. 319 Peg Fix Dvr Pthrd Lng 2.5x16 - [id number] Implanted:Qty : 1 on 05/26/2021 by Jorden Tineo M.D. at [facility] Hardware e.g. pins/screws/ rods Right: Wrist [employer] [id number] / 07.05.20. 319 Peg Fix Dvr Smth Lng 2.0x18 - [id number] Implanted:Qty : 3 on 05/26/2021 by Jorden Tineo M.D. at [facility] Hardware e.g. pins/screws/ rods Right: Wrist [employer] [id number] / 21. 319 Scrw Dvr Fthrd 3.5x13 - [id number] Implanted:Qty : 1 on 05/26/2021 by Jorden Tineo M.D. at [facility] Hardware e.g. pins/screws/ rods [employer] [id number] / 21. 319 Procedures Procedure Name Priority [...] (ABNORMAL) Glucose, POCT (12/23/2023 7:50 AM CDT) [facility] Glucose, POCT, B 182(H) 70 - 140 mg/dL 12/23/2023 7:50 AM CDT [facility] Blood 12/23/2023 7:50 AM CDT 12/23/2023 7:56 AM CDT Generic [facility] POCT ORDERABLES- MANUAL Performing Organization Address City/State/[facility] Co de Phone Number [facility] [address] [place] [address], [employer] [facility] [facility] in [address] [address] * Leg-Emergency Department Image Exam (12/23/2023 5:15 [...] and management can be found on the [employer] site. Link [email or web address]/topic/clinical-answers/[email or web address]/cpm-204 [address]3223 Procedure Note Pati Blankenship M.D. - 10/31/2023 [...] management can be found on theAskMayoExpert site. [email or web address]://[email or web address]/topic/clinical-answers/[email or web address]/cpm -2049 1725 IMPRESSION: Negative for acute DVT. [...] Recently Relevant to Health Maintenance Care Teams Appraisal Analyst Relationship Specialty Start Date End Date Elsewhere, Pcp PCP - General Family Medicine 03/11/21
--- OUTSIDE RECORDS SUMMARY | 2024-01-05 17:48 | XMS_ITS ---
Author Organization [facility] Address [address] [place] [address] Care Team Providers Care Teacher Instrumental Name Role Phone Unavailable Unavailable Unavailable Surgery Details Not on file Complications Check Surgery Details section. Procedure Estimated Blood Loss Check Surgery Details section. Procedure Findings Check Surgery Details section. Procedure Specimens Taken Check Surgery Details section.
--- OUTSIDE RECORDS SUMMARY | 2024-01-05 17:48 | XMS_ITS | Encounter Summary ---
Author Organization [facility] Address [address] [place] [address] Care Team Providers Care Hoisting Engineer Pile Driving Name Role Phone Elsewhere, Pcp Primary Care Provider Unavailabl e Reason for Visit * Reason Comments Joint Swelling Knee swelling to rig ht. 02/09 pain Encounter Details Date Type Department Care Team (Late st Contact Info) Description 10/31/2023 1:36 PM CDT - 10/31/2023 4:28 PM CDT Emergency [facility] [address] [place] [phone] Isidoro Parker APRN, C.N.P., D.N.P. [address] [place] [phone] Swelling Leg Right (Primary Dx) [...] on this leg. Thank you for utilizing [facility] for your care! documented in [...] Per chart review, recent surgical procedure at [facility]. Please see the hospital discharge [...] 03 with imaging. 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 This happened at [facility]. She states she woke up [...] with vascular surgery tomorrow. Isidoro Parker, DNP, FIELD RECORDER, SLITTER OPERATOR-C, AGACNP-BC, ENP-C Emergency Medicine Isidoro Parker APRN, [...] and management can be found on the [employer] site. Link [email or web address]/topic/clinical-answers/[email or web address]/[facility]-204 [address] Procedure Note Pati Blankenship M.D. - 10/31/2023 [...] thrombosis and management can be found on theAskMaHutchinson TechnologyExpert site. [email or web address]://[email or web address]/topic/clinical-answers/[email or web address]/[facility] -2049 1725 IMPRESSION: Negative for acute [...] Right documented in this encounter Care Teams Hoisting Engineer Pile Driving Relationship Specialty Start Date End Date Elsewhere, Pcp PCP - General Family Medicine 03/11/21 documented as of this encounter
--- OUTSIDE RECORDS SUMMARY | 2024-01-05 17:48 | XMS_ITS | Encounter Summary ---
Author Organization [facility] Address [address] [place] [address] Care Team Providers Care Industrial Roofer Name Role Phone Elsewhere, Pcp Primary Care Provider Unavailabl e Reason for Visit * Reason Comments Skin Problem Presents with concer ns for leg wounds. States she smoked too much thc and she is feeling different than usual and needs to get checked out Encounter Details Date Type Department Care Team ([facility] st Contact Info) Description 12/23/2023 6:51 AM CDT - 12/23/2023 8:33 AM CDT Emergency [facility] [address] [place] [phone] Trent Davila, HANG, C.N.P., M.S.N. [address] [place] [phone] Abrasion Leg Initial Right (Primary Dx); Wound [...] be sent through Care Everywhere. * Abrasion (Mauritian) * Substance Use Disorder (Mauritian) documented in this encounter Medications at Time [...] encounter ED Notes * Trent Davila N, ANNEALER HELPER, C.N.P., M.S.N. - 12/23/2023 6:58 AM CDT [...] frye that has been follow-up with the [facility]. Her last appointmen t was [...] Glucose, POCT (12/23/2023 7:50 AM CDT) Pathologist [facility] Glucose, POCT, B 182(H) 70 - 140 mg/dL 12/23/2023 7:50 AM CDT [facility] Blood 12/23/2023 7:50 AM CDT 12/23/2023 7:56 AM CDT Generic [facility] POCT ORDERABLES- MANUAL [facility] [address] [place] [address], [facility] CNFL [facility] in [address] [address] documented in this encounter Visit Diagnoses Diagnosis Abrasion Leg Initial Right- Primary Wound Lower Leg Open Initial Left Abuse Cannabis documented in this encounter Care Teams Industrial Roofer Relationship Specialty Start Date End Date Elsewhere, Pcp PCP - General Family Medicine 03/11/21 documented as of this encounter
--- OUTSIDE RECORDS SUMMARY | 2024-01-05 17:48 | XMS_ITS | Referral Summary ---
Author Organization [facility] Address [address] [place] [address] Care Team Providers Care Laborer Marine Terminal Name Role Phone Elsewhere, Pcp Primary Care Provider Unavailabl e Source Comments Patient records contain information from all sites at [facility]. For routine questions regarding patient records, call [phone] during business hours, M-F 8:00 AM - 5:00 PM Central Time. Record requests for emergency care only can be directed to [phone] at any time.[facility] Encounters Date Type Department Care Team Description 12/23/2023 5:15 AM CDT Ancillary Procedure Department of Emergency Medicine 12/23/2023 6:51 AM CDT - 12/23/2023 8:33 AM CDT Emergency [facility] [address] [place] [phone] Trent Davila APRN, C.N.P., M.S.N. Abrasion Leg Initial Right (Primary Dx); Wound Lower Leg Open Initial Left; Abuse Cannabis Discharge Disposition: Home or Self Care 10/31/2023 1:36 PM CDT - 10/31/2023 4:28 PM CDT Emergency [facility] [address] [place] [phone] Isidoro Parker APRN, C.N.P., D.N.P. Swelling Leg [...] Right 10/31/2023 Atherosclerotic Heart Diseas e Of [place] Coronary Artery Without Angina Pectoris 09/15/2022 Major Depressive Disorder, Recurrent, Unspecifie d 08/03/2021 Fracture Radius Colles Closed Initial Right 05/03 Overview: Added automatically from request for surgery [id number] Osteoporosis 01/23/2018 Hypertension NOS Diabetes Mellitus Type [...] on file Medical Devices Implanted Type Area Vp Ad Sales West Device Identifier Shelf Expiration Date Model / Serial / Lot Plt Wrst Dvr Rt 3h 24.4x51.3 - [id number] Implanted:Qty : 1 on 05/26/2021 by Jorden Tineo M.D. at [facility] Hardware e.g. pins/screws/ rods [employer] [id number] / / 07.05.20. [address] S[address] Sngl 1.6x127 - [id number] Implanted:Qty : 1 on 05/26/2021 by Jorden Tineo M.D. at [facility] Hardware e.g. pins/screws/ rods [employer] [id number] / 07.05.21. 319 Scrw Dvr Fthrd 3.5x12 - [id number] Implanted:Qty : 2 on 05/26/2021 by Jorden Tineo M.D. at [facility] Hardware e.g. pins/screws/ rods [employer] [id number] / 07.05.20. 319 Peg Fix Dvr Pthrd Lng 2.5x22 - [id number] Implanted:Qty : 3 on 05/26/2021 by Jorden Tineo M.D. at [facility] Hardware e.g. pins/screws/ rods Right: Wrist [employer] [id number] / 07.05.21. 319 Peg Fix Dvr Pthrd Lng 2.5x16 - [id number] Implanted:Qty : 1 on 05/26/2021 by Jorden Tineo M.D. at [facility] Hardware e.g. pins/screws/ rods Right: Wrist [employer] [id number] / 07.05.21. 319 Peg Fix Dvr Smth Lng 2.0x18 - [id number] Implanted:Qty : 3 on 05/26/2021 by Jorden Tineo M.D. at [facility] Hardware e.g. pins/screws/ rods Right: Wrist [employer] [id number] / / 07.05.21. 319 Scrw Dvr Fthrd 3.5x13 - [id number] Implanted:Qty : 1 on 05/26/2021 by Jorden Tineo M.D. at [facility] Hardware e.g. pins/screws/ rods [employer] [id number] / 21. 319 Procedures Procedure Name Priority [...] CDT Generic [facility] POCT ORDERABLES- MANUAL [facility] [address] [place] [address], [facility] CNFL [facility] in [address] [address] * Leg-Emergency Department Image Exam (12/23/2023 5:15 [...] and management can be found on the [employer] site. Link [email or web address] [email or web address]/topic/clinical-answers/[email or web address]/cpm-204 26418 Procedure Note Pati Blankenship M.D. - 10/31/2023 [...] be found on theAskMayoExpert site. [email or web address]://[email or web address]/topic/clinical-answers/[email or web address]/cpm -2049 1725 IMPRESSION: Negative for acute DVT. [...] Recently Relevant to Health Maintenance Care Teams Laborer Marine Terminal Relationship Specialty Start Date End Date Elsewhere, Pcp PCP - General Family Medicine 03/11/21
--- OUTSIDE RECORDS SUMMARY | 2024-01-05 17:48 | XMS_ITS | Encounter Summary ---
Author Organization [facility] Address [address] [place] [address] Care Team Providers Care Steamboat Inspector Name Role Phone Elsewhere, Pcp Primary Care Provider Unavailabl e Encounter Details Date Type Department Care Team (Latest Contact Info) Description 09/18/2023 Clinical Communication Department of Rehabilitation Services in [address] [phone] Felipe Saravia, P.TTam [address] [place] [phone] Social History Tobacco Use Types Packs/Day Years [...] on filedocumented in this encounter Care Teams Steamboat Inspector Relationship Specialty Start Date End Date Elsewhere, Pcp PCP - General Family Medicine 03/11/21 documented as of this encounter
[2024-01-05 18:09] LABS: Appearance Urine Clear (Clear); Bilirubin Urine Negative (Negative); Blood Urine Negative (Negative); Color Urine Yellow (Yellow); Glucose Urine 2+ (Negative); Ketones Urine Negative (Negative); Leukocyte Esterase Urine Negative (Negative); Nitrite Urine Positive (Negative); Protein Urine Negative (Negative); Urobilinogen Urine 0.2 (0.2-1.0); pH Urine 6.5 (5.0-8.5)
[2024-01-05 18:16] LABS: Amphetamine Screen Urine Negative (Negative); Barbiturate Screen Urine Negative (Negative); Benzodiazepines Screen Urine Negative (Negative); Cannabinoid Screen Urine Negative (Negative); Cocaine Screen Urine POSITIVE (Negative); Methadone Screen Urine Negative (Negative); Methamphetamines Screen Urine Negative (Negative); Opiate Screen Urine POSITIVE (Negative); Oxycodone Screen Urine Negative (Negative); Phencyclidine Screen Urine Negative (Negative); Tricyclic Antidepressant Urine Negative (Negative)
[2024-01-05 18:17] LABS: Bacteria Urine Moderate; RBC Urine 0-2 (0-2); Squamous Epithelial Cell Urine Few (None-Few)
[2024-01-05 19:14] LABS: Lactate* 1.4 mmol/L (0.5-1.9)
--- NOTE | 2024-01-05 19:17 | ED.GENADULT ---
HPI - General Adult General Chief complaint: Fall/Minor Trauma Stated complaint: fall Time Seen by Provider: 01/05/24 17:16 Source: patient Mode of arrival: EMS Limitations: no limitations History of Present Illness HPI narrative: Patient is a 68-year-old female who called the ambulance today secondary to increasing arm pain. She states that yesterday in the morning around 10:00 a.m. she fell when she tripped over her own walker. She fell onto her left side and is complaining of left arm pain. She says the majority of the pain is at the left elbow but she also feels pain in the left upper arm, shoulder, neck, ribs. She is also complaining of pain in the right inner thigh. Patient tells me at 1st that she can not walk since this happened, and then she tells me that she can walk using her walker. She then tells me that she uses her walker all the time and that using her walker is not new for her so when I go to clarify that she is walking normally she states that she is. She cannot tell me whether not she hit her head, she cannot tell me whether not she lost consciousness. She is not complaining of a headache. Her neck pain is located on the left side. She denies feeling short of breath. Patient states that she was drinking yesterday, states that she only had 1 alcoholic beverage, cannot tell me what time this occurred. Patient denies other drug use. States that she lives at home with her . Upon reviewing patient's medical records she does have a history of alcohol use disorder. Patient is on Plavix. Related Data Home Medications ?Medication ?Instructions ?Recorded ?Confirmed gabapentin 600 mg tablet 900 mg PO HS 04/03/22 04/21/23 insulin glargine 100 unit/mL 19 unit subcut HS 04/03/22 04/21/23 subcutaneous solution (Lantus U-100 Insulin) insulin regular human 100 unit/mL 7 - 11 unit subcut TID 04/03/22 04/21/23 injection solution (Novolin R Regular U-100 Insulin) lacosamide 100 mg tablet 100 mg PO BID 04/03/22 04/21/23 levetiracetam 750 mg tablet 750 mg PO BID 04/03/22 04/21/23 lisinopril 10 mg tablet 5 mg PO DAILY 04/03/22 04/21/23 sertraline 50 mg tablet 50 mg PO DAILY 04/03/22 04/21/23 aspirin 81 mg tablet,delayed 81 mg PO DAILY 01/31/23 04/21/23 release (Adult Aspirin Regimen) clopidogrel 75 mg tablet 75 mg PO DAILY 01/31/23 04/21/23 atorvastatin 20 mg tablet 20 mg PO HS 04/21/23 04/21/23 gabapentin 600 mg tablet 600 mg PO DAILY 04/21/23 04/21/23 metoprolol succinate 100 mg 150 mg PO DAILY 04/21/23 04/21/23 tablet,extended release 24 hr multivitamin (Daily Multi-Vitamin 1 tab PO DAILY 04/21/23 04/21/23 tablet) nitroglycerin 0.4 mg sublingual 0.4 mg sublingual Q5M PRN 04/21/23 04/21/23 tablet Previous Rx's ?Medication ?Instructions ?Recorded diazepam 10 mg/spray (0.1 mL) 10 mg (0.1 mL) intranasal ONCE PRN 10/10/23 nasal spray #2 sprays Allergies Allergy/AdvReac Type Severity Reaction Status Date / Time No Known Drug Allergies Allergy Verified 04/03/22 10:13 Review of Systems Status of ROS: Reports: 10 or more systems reviewed and unremarkable except as noted in History and below [facility] Medical History Hypertension ?I10 - Essential (primary) hypertension (ICD-10) Social History What is your current living situation?: I presently have a place to live Problems where you live: no known problems Problems where you live details: N/A In the past 12 months, utilities in danger of being shut off: no In past 12 months, lack of transportation kept you from medical appts, meetings, work, or getting things needed for daily living: no In the past 12 mos, have been you worried that your food would run out before you had money to buy more?: never true In the past 12 mos, the food you bought just didn't last and you didn't have money to buy more?: never true Highest level of school completed/degree received: Associate degree: occupational, technical, vocational program Smoking Status: Current every day smoker What tobacco products do you use: cigarettes Do you use any of these nicotine containing products: None Nicotine containing products detail: Per patient statement 1-2 cigarettes per day Second hand tobacco smoke exposure: No How often do you have a drink containing alcohol: 2-4 times a month How many standard drinks containing alcohol do you have on a typical day: 1 or 2 How often do you have six or more drinks on one occasion: Never AUDIT-C Alcohol total score: 2 Non-prescribed substance use: denies use How often does anyone, including family, friends and others, physically hurt you: never How often does anyone, including family, friends and others, insult or talk down to you: never How often does anyone, including family, friends and others, threaten you with harm: never How often does anyone, including family, friends and others, scream or curse at you: never service: No Exam Narrative: Exam Narrative: Well-nourished well-developed patient in no acute distress. Alert and oriented x2, momentarily for got that she was in the [facility] but eventually remembered. Answers questions appropriately. Mood and affect are appropriate. Thoughts are goal oriented and rational. No tangential or magical thinking noted. Patient speaks in full sentences without needing to catch her breath. Speech is slightly slurred. GCS is 15. Patient is breathing without difficulty, there is no obvious bleeding. HEENT: Normocephalic atraumatic. Pupils are equally round reactive to light. Extraocular muscles are intact. Conjunctivae are moist without any icterus noted. Moist mucous membranes. No trauma noted to the inside of the mouth. Posterior pharynx is normal. Neck is soft without any lymphadenopathy. Cardiovascular: Heart is regular rate and rhythm S1 and S2 are present without any murmurs. Lungs: Clear to auscultation bilaterally no wheezes rhonchi or rales are appreciated. Patient takes deep breaths without any discomfort. Abdomen: Soft and nontender nondistended with normal bowel sounds. Extremities: Bilateral lower extremities are without edema. No obvious bruising to the lower extremities. Pelvis is without bruising or erythema. Thighs have normal appearance. She has no tenderness to palpation of the outer thighs bilaterally. She moans in discomfort with palpation of the inner mid thigh. She refuses to lift either leg off of the bed to do a neurological exam she states that it hurts the right thigh. Right upper extremity appears normal. The left upper extremity has significant swelling and ecchymoses around the elbow. The elbow is exquisitely tender to palpation. She also complains of pain with palpation of the upper arm, shoulder on the left. However there is no evidence of bruising or swelling of the upper arm or shoulder. She refuses to move that arm secondary to pain. She complains of pain with palpation of the lateral chest wall on the left. However she has no pain with deep inspiration. She complains of discomfort over the paraspinal musculature of the neck, specifically over the trapezius. There is no acute tenderness over the cervical spine although patient states after the examination that the entire neck hurts. The lower extremities are symmetric there is no external rotation or internal rotation noted. She has normal DP and PT pulses. Normal radial pulse of the upper extremities. Normal capillary refills of both hands Skin: Well perfused. Const: Vital Signs, click to edit/add: Vital Signs - 24 hr 01/05/24 17:00 Temperature 97.7 F Pulse Rate [Pulse Oximeter] 105 H Respiratory Rate 20 Blood Pressure [Le ft Upper Arm] 130/72 Pulse Oximetry 93 Oxygen Delivery Me thod Room Air Course Course ED Course: Given the patient being of rather poor historian and appearing intoxicated we did proceed with a head CT which, read by me, looked unremarkable. We also did a cervical spine CT which was read as unremarkable. We did proceed with x-rays of the elbow which, read by me, does show an olecranon fracture. We also x-rayed the femur on the right which, read by me, appears normal. However, radiologic over-read commented on a possible pelvic fracture so a dedicated pelvis x-ray was then ordered: That showed right superior and inferior pubic rami fractures. Discussed these results with Yasmine Celis from Orthopedic surgery, Lastly we did a rib and chest x-ray which , read by me, was unremarkable. Labs were drawn: Patient's urine drug screen is positive for cocaine and opiates. Upon further conversation she tells me that she did do cocaine yesterday along with alcohol. Urinalysis had 2+ blood and positive nitrite. CBC showed a hemoglobin of 9.4. Last hemoglobin on record was from October of this year when it was 12.4. Normal lactate. LFTs mildly elevated. Sodium was slightly low, patient did receive 1 L of normal saline. Patient's arm was splinted with a long-arm splint with the elbow at 90?. Arm placed in a sling. Patient received a dose of Tylenol. We had a discussion about going home. Patient states that she feels safe going home does not wish to be hospitalized for any reason at this time. However, her states that he does know how he is going to take care of her given that she can not use her walker with a broken elbow and splinted arm as well as a pelvic fracture. Therefore was decided to admit the patient. Vomits and accepts the patient for admission. I did speak with the patient about going to a assisted for a short amount of time for rehab and she and her are both open to this idea Vital Signs Vital signs: Initial Vital Signs Temperature 97.7 F 01/05/24 17:00 Temperature Source Temporal Artery Scan 01/05/24 17:00 Pulse Rate 105 H 01/05/24 17:00 Pulse Rhythm Regular 01/05/24 17:00 Respiratory Rate 20 01/05/24 17:00 Blood Pressure 130/72 01/05/24 17:00 Blood Pressure Mean 91 01/05/24 17:00 Blood Pressure Position Sitting 01/05/24 17:00 Pulse Oximetry 93 01/05/24 17:00 Oxygen Delivery Method Room Air 01/05/24 17:00 Vital Signs Temperature 97.7 F 01/05/24 17:00 Pulse Rate 105 H 01/05/24 17:00 Respiratory Rate 20 01/05/24 17:00 Blood Pressure 130/72 01/05/24 17:00 Pulse Oximetry 93 01/05/24 17:00 Oxygen Delivery Method Room Air 01/05/24 17:00 Temperature 97.7 F 01/05/24 17:00 Pulse Rate 105 H 01/05/24 17:00 Respiratory Rate 20 01/05/24 17:00 Blood Pressure 130/72 01/05/24 17:00 Pulse Oximetry 93 01/05/24 17:00 Oxygen Delivery Method Room Air 01/05/24 17:00 Medications Administered Medications: Generic Name Dose Route Start Last Admin Trade Name Freq PRN Reason Stop Dose Admin Sodium Chloride 1,000 mls @ 1,000 mls/hr 01/05/24 20:15 01/05/24 20:23 0.9 % Sodium Chloride 1000 Ml IV 01/05/24 21:14 1,000 mls/hr .Q1H DEIDRA Administration Discontinued Medications Generic Name Dose Route Start Last Admin Trade Name Mack PRN Reason Stop Dose Admin Acetaminophen 1,000 mg 01/05/24 20:05 01/05/24 20:11 Acetaminophen 500 Mg Tablet PO 01/05/24 20:06 1,000 mg ONCE ONE Administration Hydrocodone Bitart/Acetaminophen 1 tab 01/05/24 20:28 01/05/24 20:50 Hydrocodone-Acetamin 5-325 Mg 1 Tab PO 01/05/24 20:29 Not Given ONCE ONE Medical Decision Making MDM Narrative Medical decision making narrative: 68-year-old female with probable substance use disorder, status post a fall with an olecranon and pelvic fracture. Hyponatremia. Plan per above. Medical Records Medical records reviewed: Yes I reviewed the patient's medical records Lab Data Lab results reviewed: Yes I reviewed the patient's lab results Labs: Lab Results 01/05/24 01/05/24 01/05/24 Range/Units 17:00 19:09 19:24 WBC 9.62 (4.50-11.00) K/uL RBC 3.09 L (4.00-5.20) m/uL Hgb 9.4 L (12.0-16.0) gm/dL Hct 28.4 L (33.0-51.0) % MCV 92 (80-100) fL MCH 30 (26-34) pg MCHC 33 (32-36) gm/dL RDW Coeff of Alicia 11.9 (11.5-15.5) % Plt Count 255 (140-440) K/uL Neut % (Auto) 75.7 H (42.0-72.0) % Lymph % (Auto) 13.1 L (20-44) % [place] % (Auto) 7.9 (0.0-11.0) % Eos % (Auto) 2.6 (0.0-7.0) % Baso % (Auto) 0.5 (0.0-3.0) % Neut # (Auto) 7.30 H (1.7-7.0) K/uL Lymph # (Auto) 1.30 (0.90-2.90) K/uL [place] # (Auto) 0.80 (0.00-0.90) K/UL Eos # (Auto) 0.25 (0.00-0.50) K/uL Baso # (Auto) 0.05 (0.00-0.30) K/uL Abs Immat Gran (auto) 0.02 (0.00-0.30) K/uL Imm/Tot Granulo (auto) 0.2 % Sodium 132 L (135-149) mmol/L Potassium 4.4 (3.6-5.1) mmol/L Chloride 102 (96-114) mmol/L Carbon Dioxide 25 (20-32) mmol/L Anion Gap 5 L (7-15) mEq/L BUN 18 (7-30) mg/dL Creatinine 0.8 (0.5-1.5) mg/dL Estimated Creat Clear 41.05 Estimated GFR 81 ml/min Glucose 214 H (60-115) mg/dL Lactate 1.4 (0.5-1.9) mmol/L Calcium 8.3 L (8.4-10.6) mg/dL Magnesium 2.1 (1.5-2.6) mg/dL Total Bilirubin 0.6 (0.1-1.5) mg/dL Direct Bilirubin 0.3 (0.0-0.5) mg/dL AST 43 H (12-35) U/L ALT 58 H (4-35) U/L Alkaline Phosphatase 260 H (40-150) U/L Total Protein 6.3 (6.0-8.3) g/dL Albumin 3.5 (3.3-5.0) g/dL Urine Color Yellow (Yellow) Urine Appearance Clear (Clear) Urine pH 6.5 (5.0-8.5) Ur Specific [place] 1.010 (1.000-1.030) Urine Protein Negative (Negative) Urine Glucose (UA) 2+ A (Negative) Urine Ketones Negative (Negative) Urine Blood Negative (Negative) Urine Nitrite Positive A (Negative) Urine Bilirubin Negative (Negative) Urine Urobilinogen 0.2 (0.2-1.0) Ur Leukocyte Esterase Negative (Negative) Urine RBC 0-2 (0-2) Urine WBC 2-5 (0-5) Ur Squamous Epith Cells Few (None-Few) Urine Bacteria Moderate A (None) Urine Opiates Screen POSITIVE A (Negative) Ur Oxycodone Screen Negative (Negative) Urine Methadone Screen Negative (Negative) Ur Barbiturates Screen Negative (Negative) U Tricyclic Antidepress Negative (Negative) Ur Phencyclidine Scrn Negative (Negative) Ur Amphetamines Screen Negative (Negative) U Methamphetamines Scrn Negative (Negative) U Benzodiazepines Scrn Negative (Negative) Urine Cocaine Screen POSITIVE A (Negative) U Marijuana (THC) Screen Negative (Negative) Ur Drug Screen Comment See Note Ethyl Alcohol < 0.01 L (0.01-0.03) % Imaging Data CT scan - head: Attestation: I have reviewed the pertinent imaging results. Radiologist's impression: CT HEAD WITHOUT CONTRAST TECHNIQUE: Multiple axial CT images were performed through the head without intravenous contrast administration. COMPARISON: No previous studies are currently available for comparison. FINDINGS: No acute intracranial hemorrhage is identified. No extra-axial collections are evident and there is no mass effect or midline shift. There is mild diffuse age-related brain atrophy. Ventricular size and configuration are within normal limits for the patient`s age. Nichols-white differentiation is within normal limits. There is patchy hypodensity in the periventricular white matter, a nonspecific finding which most likely reflects chronic small vessel ischemic change. Intracranial atherosclerotic vascular calcifications are noted. Osseous structures are within normal limits and no fractures are seen. Included portions of the paranasal sinuses and mastoid air cells are normally aerated. IMPRESSION: 1. No acute intracranial abnormality identified. 2. Mild age-related brain atrophy, white matter hypodensity consistent with chronic small vessel ischemic change, and intracranial atherosclerotic vascular calcifications. CT- Other: Attestation: I have reviewed the pertinent imaging results. Radiologist's impression: CT CERVICAL SPINE WITHOUT CONTRAST TECHNIQUE: Multidetector axial CT imaging was performed through the cervical spine, without contrast. Sagittal and coronal reconstructions were generated. FINDINGS: No acute fractures are identified. Multilevel degenerative change is noted in the cervical spine, including degenerative disc disease at C5-6 and scattered facet joint degenerative changes. Osseous alignment is within normal limits and no acute subluxation is seen. Prevertebral soft tissues are unremarkable. Included portions of the airway and lung apices are within normal limits. IMPRESSION: 1. No fracture, subluxation, or other acute finding identified. 2. Cervical spondylosis, as noted above. X-ray elbow: Attestation: I have reviewed the pertinent imaging results. Radiologist's impression: Study:?XRay-Extremity Left 2 VIEW-01/05/2024 6:56:34 PM Ordering Physician:Justin Jacobson Final Report: INDICATION: Fall. Elbow pain and swelling. COMPARISON: None. FINDINGS/IMPRESSION: Left elbow, two views. There is an acute-appearing transverse fracture through the olecranon, with approximately 15 millimeters of proximal retraction of the proximal fragment and moderate overlying soft tissue swelling. No elbow dislocation or other acute finding is noted. Chest x-ray: Attestation: I have reviewed the pertinent imaging results. Radiologist's impression: Study:?XRay-Chest RIBS 2 VIEWS W/ 1V CXR-01/05/2024 6:59:21 PM Ordering Physician:Justin Jacobson Final Report: INDICATION: Fall. Lateral chest wall pain. COMPARISON: 10/10/2023 chest radiograph. FINDINGS/IMPRESSION: Chest, one view and left ribs, three views. No acute rib fracture is identified. There is no pneumothorax or pleural fluid collection. Cardiac contour is within normal limits. Lungs appear clear. XR femur: Attestation: I have reviewed the pertinent imaging results. Radiologist's impression: AP and lateral views right femur were obtained. Findings: Questionable age-indeterminate deformities of the right medial superior and inferior pubic rami. No evidence of displaced femur injury. The joint spaces are grossly preserved. The soft tissues are unremarkable. Impression: Questionable age-indeterminate deformities of the partially visualized medial superior and inferior pubic rami which may represent nondisplaced fractures. No evidence of displaced femur fracture. Consider follow-up with additional single view of the pelvis for improved characterization of additional injuries. X-ray pelvis: Attestation: I have reviewed the pertinent imaging results. Radiologist's impression: Single view pelvis COMPARISONS: Single pelvis April 21, 2023 FINDINGS: Femoral heads are well-seated in the acetabula. There are subtle deformities of the right superior and inferior pubic rami likely representing nondisplaced fractures. Degenerative changes of the bilateral hips are appreciated. The soft tissues are unremarkable. IMPRESSION: Subtle deformities of the right superior and inferior pubic rami likely representing nondisplaced fractures. Discharge Plan Discharge Clinical Impression: Closed olecranon fracture, Anemia, Pelvic fracture, Hyponatremia Patient Disposition: Admitted As Observation Condition: Stable Prescriptions: No Action gabapentin 600 mg tablet 900 mg PO HS Patient Comments: insulin glargine [Lantus U-100 Insulin] 100 unit/mL solution 19 unit SUBCUT HS Novolin R Regular U100 Insulin 100 unit/mL solution 7 - 11 unit subcut TID lacosamide 100 mg tablet 100 mg PO BID levetiracetam 750 mg tablet 750 mg PO BID lisinopril 10 mg tablet 5 mg PO DAILY sertraline 50 mg tablet 50 mg PO DAILY clopidogrel 75 mg tablet 75 mg PO DAILY aspirin [Adult Aspirin Regimen] 81 mg tablet,delayed release (DR/EC) 81 mg PO DAILY atorvastatin 20 mg tablet 20 mg PO HS gabapentin 600 mg tablet 600 mg PO DAILY metoprolol succinate 100 mg tablet extended release 24 hr 150 mg PO DAILY multivitamin [Daily Multi-Vitamin] Tablet 1 tab PO DAILY nitroglycerin 0.4 mg tablet, sublingual 0.4 mg sublingual Q5M PRN diazepam 10 mg/spray (0.1 mL) spray,non-aerosol 10 mg intranasal ONCE PRNQty: 2 0RF Follow Up/Referrals: Parisa Byrd PA-C [Primary Care Provider] - Stand Alone Forms: [facility] Info Instructions
[2024-01-05 19:29] LABS: Basophils Absolute Auto 0.05 K/uL (0.00-0.30); Basophils Percent Auto 0.5 % (0.0-3.0); Eosinophils Absolute Auto 0.25 K/uL (0.00-0.50); Eosinophils Percent Auto 2.6 % (0.0-7.0); Hematocrit 28.4 % (33.0-51.0); Hemoglobin* 9.4 gm/dL (12.0-16.0); Immature Granulocytes Abs Auto 0.02 K/uL (0.00-0.30); Immature Granulocytes Pct Auto 0.2 %; Lymphocytes Percent Auto 13.1 % (20-44); Mean Corpuscular HGB Conc 33 gm/dL (32-36); Mean Corpuscular Hemoglobin 30 pg (26-34); Mean Corpuscular Volume 92 fL (80-100); Monocytes Percent Auto 7.9 % (0.0-11.0); Neutrophils Percent Auto 75.7 % (42.0-72.0); Platelet Count* 255 K/uL (140-440); RDW Coefficient of Variation % 11.9 % (11.5-15.5); Red Blood Count 3.09 m/uL (4.00-5.20); White Blood Count* 9.62 K/uL (4.50-11.00)
[2024-01-05 19:37] LABS: Slide Review Reflex No
--- NOTE | 2024-01-05 19:39 | CRLHL7_ITS ---
For Patients: As a result of the Century Cures Act, medical imaging exams and procedure reports are released immediately into your electronic medical record. You may view this report before your referring provider. If you have questions, please contact your health care provider. INDICATION: Fall TECHNIQUE: Single view pelvis COMPARISONS: Single pelvis April 21, 2023 FINDINGS: Femoral heads are well-seated in the acetabula. There are subtle deformities of the right superior and inferior pubic rami likely representing nondisplaced fractures. Degenerative changes of the bilateral hips are appreciated. The soft tissues are unremarkable. IMPRESSION: Subtle deformities of the right superior and inferior pubic rami likely representing nondisplaced fractures. Dictated by Quincy Vargas MD @ 01/05/2024 8:28:19 PM (Electronically Signed)
[2024-01-05 19:42] LABS: Albumin* 3.5 g/dL (3.3-5.0); Chloride* 102 mmol/L (96-114)
[2024-01-05 19:43] LABS: Potassium* 4.4 mmol/L (3.6-5.1); Sodium* 132 mmol/L (135-149)
[2024-01-05 19:45] LABS: Anion Gap 5 mEq/L (7-15); Aspartate Amino Transferase* 43 U/L (12-35); Bilirubin Direct* 0.3 mg/dL (0.0-0.5); Bilirubin Total* 0.6 mg/dL (0.1-1.5); Blood Urea Nitrogen* 18 mg/dL (7-30); Carbon Dioxide* 25 mmol/L (20-32); Creatinine* 0.8 mg/dL (0.5-1.5); Est. Creatinine Clearance* 41.05; Estimated Glomerular Filt Rate 81 ml/min; Glucose* 214 mg/dL (60-115); Total Protein* 6.3 g/dL (6.0-8.3)
[2024-01-05 19:46] LABS: Alanine Aminotransferase* 58 U/L (4-35); Alkaline Phosphatase* 260 U/L (40-150); Calcium* 8.3 mg/dL (8.4-10.6); Magnesium* 2.1 mg/dL (1.5-2.6)
[2024-01-05 19:52] LABS: Ethanol* < 0.01 % (0.01-0.03)
[2024-01-05] MEDS: ACETAMINOPHEN 500 MG TABLET 1000 MG PO (20:11)
[2024-01-05] MEDS: 0.9 % SODIUM CHLORIDE 1000 ml 1,000 ML IV (20:23)
--- NOTE | 2024-01-05 21:42 | PM.IMHP1 ---
Hospitalist- H&P: HPI History of Present Illness Date Seen: 01/05/24 Chief complaint: fall Narrative: Bella Jones is a 68 year old female who presented to the ER by ambulance today for L arm pain after having a mechanical fall at home. She tripped over her walker, hit L arm. Thinks she hit her head but denies LOC. She doesn't believe that she had dizziness or palpitations, but notably a poor historian. ETOH use was possibly involved in the fall, also admits to using cocaine on the 03 of January. ER Course and Findings: - nondisplaced fractures of R superior and inferior pubic rami - acute transverse fracture through olecranon of L elbow, this was splinted in ED - no acute findings on imaging of C-spine, ribs, or head - + cocaine and opiates on Utox, negative ETOH - + nitrite on UA, no symptoms Histories updated below per chart review, PCP is Parisa Byrd at the [facility]. Review of Systems Narrative: - recent skin tear LLE; initially seen in [place] ED for this and admitted to THC use at that time. Has been seeing wound clinic for this - no dysuria or urinary frequency; denies any UTI symptoms PFSH PFSH Medical History (Updated 01/05/24 @ 23:03 by Anya Carreon MD) Nonischemic cardiomyopathy ?I42.8 - Other cardiomyopathies (ICD-10) Seizure disorder ?G40.909 - Epilepsy, unspecified, not intractable, without status epilepticus (ICD-10) Type 1 diabetes mellitus ?E10.9 - Type 1 diabetes mellitus without complications (ICD-10) Peripheral vascular disease ?I73.9 - Peripheral vascular disease, unspecified (ICD-10) Alcohol abuse ?F10.10 - Alcohol abuse, uncomplicated (ICD-10) Normocytic anemia ?D64.9 - Anemia, unspecified (ICD-10) Elevated liver enzymes ?R74.8 - Abnormal levels of other serum enzymes (ICD-10) Hypertension ?I10 - Essential (primary) hypertension (ICD-10) Surgical History (Updated 01/05/24 @ 22:14 by Anya Carreon MD) Amputation toe ?S98.139A - Complete traumatic amputation of one unspecified lesser toe, initial encounter (ICD-10) S/P trigger finger release ?Z98.890 - Other specified postprocedural states (ICD-10) S/P appendectomy ?Z90.49 - Acquired absence of other specified parts of digestive tract (ICD-10) H/O endarterectomy ?Z98.890 - Other specified postprocedural states (ICD-10) Hx of cholecystectomy ?Z90.49 - Acquired absence of other specified parts of digestive tract (ICD-10) H/O tubal ligation ?Z98.51 - Tubal ligation status (ICD-10) Social History (Updated 01/05/24 @ 22:06 by Anya Carreon MD) Narrative: Lives in [place] with partner. Two children, daughter Irena would be medical decision maker if needed. Not currently working. Smokes a few cigarettes/day, denies ETOH use during this admission. Occasional THC and cocaine. Full code status. What is your current living situation?: I presently have a place to live Problems where you live: no known problems Problems where you live details: N/A In the past 12 months, utilities in danger of being shut off: no In past 12 months, lack of transportation kept you from medical appts, meetings, work, or getting things needed for daily living: no In the past 12 mos, have been you worried that your food would run out before you had money to buy more?: never true In the past 12 mos, the food you bought just didn't last and you didn't have money to buy more?: never true Highest level of school completed/degree received: Associate degree: occupational, technical, vocational program Smoking Status: Current every day smoker What tobacco products do you use: cigarettes Smoking quit date/years: <= 15 years ago Do you use any of these nicotine containing products: None Nicotine containing products detail: Per patient statement 1-2 cigarettes per day Second hand tobacco smoke exposure: No How often do you have a drink containing alcohol: 2-4 times a month Alcohol type: beer How many standard drinks containing alcohol do you have on a typical day: 1 or 2 How often do you have six or more drinks on one occasion: Never AUDIT-C Alcohol total score: 2 Non-prescribed substance use: denies use Caffeine: Yes How often does anyone, including family, friends and others, physically hurt you: never How often does anyone, including family, friends and others, insult or talk down to you: never How often does anyone, including family, friends and others, threaten you with harm: never How often does anyone, including family, friends and others, scream or curse at you: never service: No Meds Home Medications and Allergies Home Medications ?Medication ?Instructions ?Recorded ?Confirmed ?Type gabapentin 600 mg tablet 900 mg PO HS 04/03/22 01/05/24 History insulin glargine 100 unit/mL 19 unit subcut HS 04/03/22 01/05/24 History subcutaneous solution (Lantus U-100 Insulin) insulin regular human 100 unit/mL 7 - 11 unit subcut TID 04/03/22 01/05/24 History injection solution (Novolin R Regular U-100 Insulin) lacosamide 100 mg tablet 100 mg PO BID 04/03/22 01/05/24 History levetiracetam 750 mg tablet 750 mg PO BID 04/03/22 01/05/24 History lisinopril 10 mg tablet 5 mg PO DAILY 04/03/22 01/05/24 History sertraline 50 mg tablet 50 mg PO DAILY 04/03/22 01/05/24 History aspirin 81 mg tablet,delayed 81 mg PO DAILY 01/31/23 01/05/24 History release (Adult Aspirin Regimen) clopidogrel 75 mg tablet 75 mg PO DAILY 01/31/23 01/05/24 History atorvastatin 20 mg tablet 20 mg PO HS 04/21/23 01/05/24 History gabapentin 600 mg tablet 600 mg PO DAILY 04/21/23 01/05/24 History metoprolol succinate 100 mg 150 mg PO DAILY 04/21/23 01/05/24 History tablet,extended release 24 hr multivitamin (Daily Multi-Vitamin 1 tab PO DAILY 04/21/23 01/05/24 History tablet) nitroglycerin 0.4 mg sublingual 0.4 mg sublingual Q5M PRN 04/21/23 01/05/24 History tablet tiotropium bromide 2.5 2 inh inhalation DAILY 01/05/24 01/05/24 History mcg/actuation mist for inhalation (Spiriva Respimat) Home Medication Comments: Confirmed with patient Allergies Allergy/AdvReac Type Severity Reaction Status Date / Time No Known Drug Allergies Allergy Verified 04/03/22 10:13 Exam Narrative: Exam Narrative: GEN: Alert and sitting up in bed, eating ice cream when I see her HEENT: Missing many teeth, no evidence of dental infection CV: RRR, No concerning murmurs, rubs, or gallops R: LCTA bilaterally without concerning wheezing, air movement adequate Ext: LUE is splinted, normal movement and capillary refill of left fingers. LLE has skin tear that has been covered by nursing staff, right great toe distally amputated Skin: Scattered bruising over extremities Neuro: No focal deficit on limited neurologic exam Psych: Appropriate Const: Vital Signs, click to edit/add: Vital Signs - 24 hr 01/05/24 17:00 01/05/24 21:15 Temperature 97.7 F Pulse Rate [Pulse Oximeter] 105 H 75 Respiratory Rate 20 16 Blood Pressure [Le ft Upper Arm] 130/72 Pulse Oximetry 93 94 Oxygen Delivery Me thod Room Air Hospitalist - H&P: Result Labs Labs: Short CBC 01/05/24 Range/Units 19:24 WBC 9.62 (4.50-11.00) K/uL Hgb 9.4 L (12.0-16.0) gm/dL Hct 28.4 L (33.0-51.0) % Plt Count 255 (140-440) K/uL BMP 01/05/24 19:24 Sodium 132 L Potassium 4.4 Chloride 102 Carbon Dioxide 25 BUN 18 Creatinine 0.8 Glucose 214 H Calcium 8.3 L Liver Function 01/05/24 Range/Units 19:24 Total Bilirubin 0.6 (0.1-1.5) mg/dL Direct Bilirubin 0.3 (0.0-0.5) mg/dL AST 43 H (12-35) U/L ALT 58 H (4-35) U/L Alkaline Phosphatase 260 H (40-150) U/L Albumin 3.5 (3.3-5.0) g/dL Urine 01/05/24 Range/Units 17:00 Urine Color Yellow (Yellow) Urine Appearance Clear (Clear) Urine pH 6.5 (5.0-8.5) Ur Specific [place] 1.010 (1.000-1.030) Urine Protein Negative (Negative) Urine Glucose (UA) 2+ A (Negative) Assessment and Plan Assessment and plan (1) Closed olecranon fracture: Problem comment: - splinted in ED 01/05/24 Status: Acute (2) Pelvic fracture: Problem comment: - s/p fall 01/04/24 - therapies ordered, will likely need TCU Status: Acute (3) Recurrent falls: Problem comment: - hospitalized for falls in the past - therapies ordered, will likely need TCU given current injuries Status: Acute (4) Alcohol abuse: Problem comment: - per chart review, noted to have + ETOH withdrawal in 2022 - patient denies use at this time, will follow CIWA - nicotine replacement available prn Status: Acute (5) Elevated liver enzymes: Problem comment: - previously 2:1 AST:ALT, currently ALT is higher - patient denies ETOH use currently, no abdominal pain - follow LFTs, imaging pending clinical course Status: Acute (6) Normocytic anemia: Problem comment: - chronic per chart review, baseline 03-13 - no current concerns of bleeding, add PPI Status: Acute (7) Hypertension: Problem comment: - good control on home doses of Metoprolol and Lisinopril, will continue Status: Acute (8) Hyponatremia: Problem comment: - mild, corrects to normal given hyperglycemia - follow sodium, no diet changes or fluid restriction at this time Status: Acute (9) Type 1 diabetes mellitus: Problem comment: - last A1C 9.08 September 2023 - continue insulin home doses + sliding scale Status: Acute (10) Seizure disorder: Problem comment: - patient doesn't remember when she last had a seizure - continue home doses of Keppra and Vimpat Status: Acute (11) Peripheral vascular disease: Problem comment: - recent femoral endarterectomy, continue ASA and Plavix Status: Acute Plan - per above - requests Full Code status
[2024-01-05] MEDS: THIAMINE 100 MG TABLET PO (22:56)
[2024-01-05] MEDS: INSULIN ASPART 100 UNIT/ML SUBCUT (22:56)
[2024-01-05] MEDS: OXYCODONE 5 MG TABLET PO (23:01)
[2024-01-06] VITALS (13 sets, daily range): BP systolic 100–154; BP diastolic 58–92; PULSE 70–787; RESP 14–20; TEMP 36.2–37.1; O2SAT 92–96
[2024-01-06] MEDS: OMEPRAZOLE 20 MG CAPSULE DR PO (06:30)
[2024-01-06 06:49] LABS: Basophils Absolute Auto 0.08 K/uL (0.00-0.30); Basophils Percent Auto 1.1 % (0.0-3.0); Eosinophils Absolute Auto 0.36 K/uL (0.00-0.50); Eosinophils Percent Auto 4.8 % (0.0-7.0); Hematocrit 28.7 % (33.0-51.0); Hemoglobin* 9.2 gm/dL (12.0-16.0); Immature Granulocytes Abs Auto 0.02 K/uL (0.00-0.30); Immature Granulocytes Pct Auto 0.3 %; Lymphocytes Percent Auto 18.8 % (20-44); Mean Corpuscular HGB Conc 32 gm/dL (32-36); Mean Corpuscular Hemoglobin 30 pg (26-34); Mean Corpuscular Volume 94 fL (80-100); Monocytes Percent Auto 10.2 % (0.0-11.0); Neutrophils Absolute Auto 4.91 K/uL (1.7-7.0); Neutrophils Percent Auto 64.8 % (42.0-72.0); Platelet Count* 262 K/uL (140-440); Red Blood Count 3.05 m/uL (4.00-5.20); White Blood Count* 7.56 K/uL (4.50-11.00)
--- NOTE | 2024-01-06 06:58 | PC.NURSE ---
End of shift note: Pt admitted at approximately 2124 last evening. Pt noted to be alert & oriented to person and place upon assessment. PRN Oxycodone administered for c/o 7/10 pelvic pain which was effective upon followup. LUE noted to have splint intact with capillary refill noted to be < 3 seconds. VSS and pt has been afebrile. Blood glucose of 284 noted at HS. Pt continent of bladder using bedpan. VSS and pt has been afebrile. Pt noted to have Dexcom in place to RUE.?New IV placed near R wrist as pt removed previous IV in place to R hand with catheter noted to be intact. TEDs and SCDs worn to bilateral lower extremities.
[2024-01-06 07:16] LABS: Slide Review Reflex No
[2024-01-06] MEDS: OXYCODONE 5 MG TABLET PO (08:38)
[2024-01-06] MEDS: levETIRAcetam 500 MG TABLET 750 MG PO ×2 (08:39→20:36)
[2024-01-06] MEDS: METOPROLOL SUCCINATE (XL) 100 MG TAB 150 MG PO (08:40)
[2024-01-06] MEDS: lisinopriL 10 MG TABLET 5 MG PO (08:40)
[2024-01-06] MEDS: ASPIRIN 81 MG TABLET EC PO (08:40)
[2024-01-06] MEDS: FOLIC ACID 1 MG TABLET PO (08:41)
[2024-01-06] MEDS: CLOPIDOGREL 75 MG TABLET PO (08:41)
[2024-01-06] MEDS: SERTRALINE 50 MG TABLET PO (08:42)
[2024-01-06] MEDS: LACOSAMIDE 50 MG TABLET 100 MG PO ×2 (08:42→20:41)
[2024-01-06 08:44] LABS: Albumin* 3.2 g/dL (3.3-5.0); Chloride* 105 mmol/L (96-114); Sodium* 136 mmol/L (135-149)
[2024-01-06 08:45] LABS: Potassium* 4.6 mmol/L (3.6-5.1)
[2024-01-06] MEDS: SODIUM CHLORIDE 0.9 % (FLUSH) 10 ML SYRINGE 5 ML IVF ×2 (08:46→20:48)
[2024-01-06 08:47] LABS: Alanine Aminotransferase* 57 U/L (4-35); Alkaline Phosphatase* 224 U/L (40-150); Anion Gap 2 mEq/L (7-15); Aspartate Amino Transferase* 60 U/L (12-35); Bilirubin Total* 0.5 mg/dL (0.1-1.5); Blood Urea Nitrogen* 15 mg/dL (7-30); Calcium* 8.2 mg/dL (8.4-10.6); Carbon Dioxide* 29 mmol/L (20-32); Creatinine* 0.8 mg/dL (0.5-1.5); Est. Creatinine Clearance* 43.18; Estimated Glomerular Filt Rate 81 ml/min; Gamma Glutamyl Transpeptidase* 168 U/L (8-55); Glucose* 123 mg/dL (60-115)
--- NOTE | 2024-01-06 09:49 | PM.IMPN1 ---
Progress Note: A&P Assessment and plan (1) Closed olecranon fracture: Problem details: - splinted in ED 01/05/24 - Pain well controlled Status: Acute (2) Pelvic fracture: Problem details: - s/p fall 01/04/24 - therapies ordered, will likely need TCU Status: Acute (3) Recurrent falls: Problem details: - hospitalized for falls in the past - therapies ordered, will likely need TCU given current injuries Status: Acute (4) Alcohol abuse: Problem details: - per chart review, noted to have + ETOH withdrawal in 2022 - patient denies use at this time, will follow CIWA - nicotine replacement available prn Status: Acute (5) Elevated liver enzymes: Problem details: - previously 2:1 AST:ALT, currently ALT is higher - patient denies ETOH use currently, no abdominal pain - follow LFTs, imaging pending clinical course - 01/05 of tease stable, continue to monitor Status: Chronic (6) Normocytic anemia: Problem details: - chronic per chart review, baseline - - no current concerns of bleeding, add PPI - hemoglobin stable at 9.2 this morning Status: Chronic (7) Hypertension: Problem details: - good control on home doses of Metoprolol and Lisinopril, will continue - 01/05 BP is soft this morning. Continue current medications and monitor. Status: Chronic (8) Hyponatremia: Problem details: - on admission: mild, corrects to normal given hyperglycemia - 01/05 sodium 136, resolved Status: Acute (9) Type 1 diabetes mellitus: Problem details: - last A1C 9.08 September 2023 - continue insulin home doses + sliding scale - 01/05 blood glucoses are 192-284, increase levemir Status: Chronic (10) Seizure disorder: Problem details: - patient doesn't remember when she last had a seizure - continue home doses of Keppra and Vimpat Status: Chronic Subjective Time Seen by Provider: 09:46 Date Seen: 01/06/24 Interval history: Bella tells me she has some pain, but the pain medicine is helping. She is aware that she may need rehab. She had a good breakfast this morning. Exam Narrative: Exam Narrative: General: No acute distress. Sleeping, arousable, oriented x3. No pallor. No jaundice. No tremor or asterixis. Oropharynx: Clear. Mucous membranes moist. Cardiovascular: Regular rate and rhythm. No murmurs, gallops, or rubs. Respiratory: Clear to auscultation bilaterally. No wheezes or crackles. Abdomen: Bowel sounds present. Soft, nondistended, nontender. Extremities: Left upper extremity is in a full arm splint, neurovascularly intact. No pedal edema. Const: Vital Signs, click to edit/add: Vital Signs - 24 hr 01/05/24 17:00 01/05/24 21:15 01/05/24 21:37 Temperature 97.7 F Pulse Rate [Pulse Oximeter] 105 H 75 Pulse Rate [Right Pulse Oximeter] Respiratory Rate 20 16 16 Blood Pressure [Le ft Upper Arm] 130/72 Blood Pressure [Ri ght Arm] Blood Pressure [ri ght lower leg] Pulse Oximetry 93 94 92 [facility] Room Air Oxygen Flow Rate 01/05/24 21:47 01/05/24 22:15 01/05/24 23:00 Temperature 97.2 F L 97.2 F L Pulse Rate [Pulse Oximeter] Pulse Rate [Right Pulse Oximeter] 73 73 Respiratory Rate 16 16 16 Blood Pressure [Le ft Upper Arm] Blood Pressure [Ri ght Arm] 147/67 H 147/67 H Blood Pressure [ri ght lower leg] Pulse Oximetry 92 92 92 Oxygen Delivery [facility] Room Air Room Air Room Air Oxygen Flow Rate 01/05/24 23:00 01/05/24 23:25 01/06/24 03:12 Temperature 97.3 F L 97.1 F L Pulse Rate [Pulse Oximeter] Pulse Rate [Right Pulse Oximeter] 75 75 70 Respiratory Rate 16 16 16 Blood Pressure [Le ft Upper Arm] Blood Pressure [Ri ght Arm] Blood Pressure [ri ght lower leg] 107/53 L 107/58 L Pulse Oximetry 90 92 [facility] Room Air Oxygen Flow Rate 01/06/24 03:13 01/06/24 07:58 01/06/24 07:58 Temperature 97.1 F L 97.6 F Pulse Rate [Pulse Oximeter] Pulse Rate [Right Pulse Oximeter] 70 86 Respiratory Rate 16 20 Blood Pressure [Le ft Upper Arm] Blood Pressure [Ri ght Arm] Blood Pressure [ri ght lower leg] 107/58 L 109/65 Pulse Oximetry 92 93 Oxygen [facility] Air Nasal Cannula Nasal Cannula Oxygen Flow Rate 2 2 01/06/24 08:03 01/06/24 09:36 Temperature 97.6 F Pulse Rate [Pulse Oximeter] Pulse Rate [Right Pulse Oximeter] 86 86 Respiratory Rate 20 20 Blood Pressure [Le ft Upper Arm] Blood Pressure [Ri ght Arm] Blood Pressure [ri ght lower leg] 109/65 Pulse Oximetry 93 Oxygen Delivery Me thod Nasal Cannula Oxygen Flow Rate 2 Labs Labs: Laboratory Results - last 24 hr 01/05/24 01/05/24 01/05/24 17:00 19:09 19:24 WBC 9.62 RBC 3.09 L Hgb 9.4 L Hct 28.4 L MCV 92 MCH 30 MCHC 33 RDW Coeff of Alicia 11.9 Plt Count 255 Neut % (Auto) 75.7 H Lymph % (Auto) 13.1 L [place] % (Auto) 7.9 Eos % (Auto) 2.6 Baso % (Auto) 0.5 Neut # (Auto) 7.30 H Lymph # (Auto) 1.30 [place] # (Auto) 0.80 Eos # (Auto) 0.25 Baso # (Auto) 0.05 Abs Immat Gran (auto) 0.02 Imm/Tot Granulo (auto) 0.2 Sodium 132 L Potassium 4.4 Chloride 102 Carbon Dioxide 25 Anion Gap 5 L BUN 18 Creatinine 0.8 Estimated Creat Clear 41.05 Estimated GFR 81 Glucose 214 H Lactate 1.4 Calcium 8.3 L Magnesium 2.1 Total Bilirubin 0.6 Direct Bilirubin 0.3 GGT AST 43 H ALT 58 H Alkaline Phosphatase 260 H Total Protein 6.3 Albumin 3.5 Urine Color Yellow Urine Appearance Clear Urine pH 6.5 Ur Specific [place] 1.010 Urine Protein Negative Urine Glucose (UA) 2+ A Urine Ketones Negative Urine Blood Negative Urine Nitrite Positive A Urine Bilirubin Negative Urine Urobilinogen 0.2 Ur Leukocyte Esterase Negative Urine RBC 0-2 Urine WBC 2-5 Ur Squamous Epith Cells Few Urine Bacteria Moderate A Urine Opiates Screen POSITIVE A Ur Oxycodone Screen Negative Urine Methadone Screen Negative Ur Barbiturates Screen Negative U Tricyclic Antidepress Negative Ur Phencyclidine Scrn Negative Ur Amphetamines Screen Negative U Methamphetamines Scrn Negative U Benzodiazepines Scrn Negative Urine Cocaine Screen POSITIVE A U Marijuana (THC) Screen Negative Ur Drug Screen Comment See Note Ethyl Alcohol < 0.01 L 01/06/24 05:30 WBC 7.56 RBC 3.05 L Hgb 9.2 L Hct 28.7 L MCV 94 MCH 30 MCHC 32 RDW Coeff of Alicia 12.0 Plt Count 262 Neut % (Auto) 64.8 Lymph % (Auto) 18.8 L [place] % (Auto) 10.2 Eos % (Auto) 4.8 Baso % (Auto) 1.1 Neut # (Auto) 4.91 Lymph # (Auto) 1.40 [place] # (Auto) 0.80 Eos # (Auto) 0.36 Baso # (Auto) 0.08 Abs Immat Gran (auto) 0.02 Imm/Tot Granulo (auto) 0.3 Sodium 136 Potassium 4.6 Chloride 105 Carbon Dioxide 29 Anion Gap 2 L BUN 15 Creatinine 0.8 Estimated Creat Clear 43.18 Estimated GFR 81 Glucose 123 H Lactate Calcium 8.2 L Magnesium Total Bilirubin 0.5 Direct Bilirubin GGT 168 H AST 60 H ALT 57 H Alkaline Phosphatase 224 H Total Protein 6.0 Albumin 3.2 L Urine Color Urine Appearance Urine pH Ur Specific [place] Urine Protein Urine Glucose (UA) Urine Ketones Urine Blood Urine Nitrite Urine Bilirubin Urine Urobilinogen Ur Leukocyte Esterase Urine RBC Urine WBC Ur Squamous Epith Cells Urine Bacteria Urine Opiates Screen Ur Oxycodone Screen Urine Methadone Screen Ur Barbiturates Screen U Tricyclic Antidepress Ur Phencyclidine Scrn Ur Amphetamines Screen U Methamphetamines Scrn U Benzodiazepines Scrn Urine Cocaine Screen U Marijuana (THC) Screen Ur Drug Screen Comment Ethyl Alcohol
[2024-01-06] MEDS: INSULIN ASPART 100 UNIT/ML SUBCUT ×2 (12:28→20:47)
[2024-01-06] MEDS: 0.9 % SODIUM CHLORIDE 500 ML 500 ML 1000 ML IV (14:01)
--- NOTE | 2024-01-06 19:19 | PC.NURSE ---
Patient alert and oriented with forgetfulness. During vital signs assessment, patient oxygen saturation found to be in the mid 80s(85-86), encouraged patient to deep breath which she was unable to. Started on 2LNC. Also given Incentive Spirometer. Patient able to use IS with encouragement. IS between 750-1500. Needs alot of reminders to use IS. O2 titrated down to 1LNC by End of Shift. No signs of opiate withdrawal this shift OT reported that when they stood patient up from bed, her BP dropped and patient reported feeling dizzy and lightheaded. Per OT, patient looked like she was going to pass out. notified of OT report. New orders for orthostatic BP given. Orthostatic BP taken, during assessment, patient denied feeling dizzy or lightheaded. Orthostatic BP readings reported to MD. 500ML bolus was given. During shift, patient required AX2 to keep her standing. Patient also had a hard time pivoting to the commode. Has a hard time moving her legs. Remained in bed after that, uses bedpan. Incident during shift Patient had an asymptomatic hypoglycemia episode in the evening. BG reading with interventions below. MD was notified 1637: BG- 39, asymptomatic, 8 ounces of [place] juice give 1646: BG- 49, asymptomatic, dinner tray at bedside, patient wanted to eat her food. Ate 2 ice creams, 1/4 of a sandwich, banana, a litle bit of salad 1700: BG-78- No intervention 1740: BG- 150, No intervention
[2024-01-06] MEDS: ATORVASTATIN 10 MG TABLET 20 MG PO (20:34)
[2024-01-06] MEDS: THIAMINE 100 MG TABLET PO (22:16)
[2024-01-07] VITALS (11 sets, daily range): BP systolic 121–156; BP diastolic 67–80; PULSE 80–86; RESP 16; TEMP 36.2–36.4; O2SAT 91–95
[2024-01-07] MEDS: OMEPRAZOLE 20 MG CAPSULE DR PO (06:03)
--- NOTE | 2024-01-07 06:21 | PC.NURSE ---
End of shift note [id number]: Pt noted to be alert & oriented x 4 though does have intermittent forgetfulness noted. Bed alarm utilized as pt is high fall risk due to hx of fall. CIWA score of 0 noted throughout the shift. Pt mostly incontinent of bladder throughout the shift though staff did also assist her with using bedpan. Be[employer] Helper provided update to daughter Irena last evening per daughter request. Blood glucose of 425 noted at HS. Beam Builder Helper updated MD Mejia and administered insulins per orders. Blood glucose of 330 noted when checked after 2 hours per protocol with MD Mejia updated. VSS and pt has been afebrile, on RA with IS completed. Be[employer] Builder Helper provided wound care to wound located to anterior LLE by removing old dressing materials, cleansing with NS, patting dry and covering with adhesive dressing. IV near R wrist patent and SL. Pt has been refusing to have pillows positioned on sides or to float heels despite encouragement. Pt has been denying pain when asked throughout the shift.
[2024-01-07 07:21] LABS: Basophils Percent Auto 0.5 % (0.0-3.0); Eosinophils Percent Auto 0.6 % (0.0-7.0); Hemoglobin* 10.2 gm/dL (12.0-16.0); Immature Granulocytes Pct Auto 0.2 %; Lymphocytes Percent Auto 11.1 % (20-44); Mean Corpuscular HGB Conc 33 gm/dL (32-36); Mean Corpuscular Hemoglobin 30 pg (26-34); Mean Corpuscular Volume 91 fL (80-100); Monocytes Percent Auto 9.4 % (0.0-11.0); Neutrophils Percent Auto 78.2 % (42.0-72.0); Platelet Count* 286 K/uL (140-440); RDW Coefficient of Variation % 12.1 % (11.5-15.5); Red Blood Count 3.39 m/uL (4.00-5.20)
[2024-01-07 07:35] LABS: Albumin* 3.4 g/dL (3.3-5.0); Chloride* 101 mmol/L (96-114)
[2024-01-07 07:36] LABS: Potassium* 3.8 mmol/L (3.6-5.1); Sodium* 132 mmol/L (135-149)
[2024-01-07 07:38] LABS: Alkaline Phosphatase* 241 U/L (40-150); Anion Gap 5 mEq/L (7-15); Aspartate Amino Transferase* 40 U/L (12-35); Bilirubin Total* 0.6 mg/dL (0.1-1.5); Blood Urea Nitrogen* 12 mg/dL (7-30); Carbon Dioxide* 26 mmol/L (20-32); Creatinine* 0.7 mg/dL (0.5-1.5); Est. Creatinine Clearance* 43.18; Estimated Glomerular Filt Rate 95 ml/min; Total Protein* 6.4 g/dL (6.0-8.3)
[2024-01-07 07:39] LABS: Alanine Aminotransferase* 46 U/L (4-35); Calcium* 8.7 mg/dL (8.4-10.6); Glucose* 117 mg/dL (60-115)
[2024-01-07 07:42] LABS: Slide Review Reflex No
[2024-01-07] MEDS: levETIRAcetam 500 MG TABLET 750 MG PO ×2 (08:47→20:38)
[2024-01-07] MEDS: FOLIC ACID 1 MG TABLET PO (08:48)
[2024-01-07] MEDS: CLOPIDOGREL 75 MG TABLET PO (08:48)
[2024-01-07] MEDS: LACOSAMIDE 50 MG TABLET 100 MG PO ×2 (08:49→20:45)
[2024-01-07] MEDS: ASPIRIN 81 MG TABLET EC PO (08:50)
[2024-01-07] MEDS: SERTRALINE 50 MG TABLET PO (08:50)
[2024-01-07] MEDS: SODIUM CHLORIDE 0.9 % (FLUSH) 10 ML SYRINGE 5 ML IVF ×2 (09:02→20:39)
[2024-01-07] MEDS: INSULIN ASPART 100 UNIT/ML SUBCUT ×2 (11:59→20:39)
[2024-01-07] MEDS: ACETAMINOPHEN 325 MG TABLET 650 MG PO (14:20)
--- NOTE | 2024-01-07 14:32 | PM.IMPN1 ---
Progress Note: A&P Assessment and plan (1) Closed olecranon fracture: Problem details: - splinted in ED 01/05/24 - Pain well controlled Status: Acute (2) Pelvic fracture: Problem details: - s/p fall 01/04/24 - therapies ordered, will likely need TCU Status: Acute (3) Recurrent falls: Problem details: - hospitalized for falls in the past - therapies ordered, will likely need TCU given current injuries Status: Acute (4) Alcohol abuse: Problem details: - suspected - per chart review, noted to have + ETOH withdrawal in 2022 - patient denies use at this time, will follow [facility] - nicotine replacement available prn Status: Acute (5) Elevated liver enzymes: Problem details: - previously 2:1 AST:ALT, currently ALT is higher - patient denies ETOH use currently, no abdominal pain - follow LFTs, imaging pending clinical course - 01/06 improving Status: Chronic (6) Normocytic anemia: Problem details: - chronic per chart review, baseline - - no current concerns of bleeding, add PPI - hemoglobin stable at 10.2 Status: Chronic (7) Hypertension: Problem details: - good control on home doses of Metoprolol and Lisinopril, will continue - blood pressure control is adequate. Continue current medications and monitor. Status: Chronic (8) Hyponatremia: Problem details: - on admission: mild, corrects to normal given hyperglycemia - 01/06 sodium 132 Status: Acute (9) Type 1 diabetes mellitus: Problem details: - last A1C 9.08 September 2023 - continue insulin home doses + sliding scale - 01/05 blood glucoses are 192-284, increase levemir - 01/06 had low yesterday of which she was unaware. Decrease levemir. Monitor. Status: Chronic (10) Seizure disorder: Problem details: - patient doesn't remember when she last had a seizure - continue home doses of Keppra and Vimpat Status: Chronic Subjective Time Seen by Provider: 08:29 Date Seen: 01/07/24 Interval history: Bella says she is okay and has no complaints. She denies pain. She answers with 1 word and does not participate in back and forth conversation. It is notable that she was unaware that she was hypoglycemic yesterday despite having a blood sugar monitor for which she should be getting alerts from her phone. Her phone did also show that her blood sugar was low.. Exam Narrative: Exam Narrative: General: No acute distress. Sleeping, arousable, oriented x3. No pallor. No jaundice. No tremor or asterixis. Oropharynx: Clear. Mucous membranes moist. Cardiovascular: Regular rate and rhythm. No murmurs, gallops, or rubs. Respiratory: Clear to auscultation bilaterally. No wheezes or crackles. Extremities: Left upper extremity is in a full arm splint, neurovascularly intact. No pedal edema. Const: Vital Signs, click to edit/add: Vital Signs - 24 hr 01/06/24 15:00 01/06/24 15:00 01/06/24 15:00 Temperature 98.7 F Pulse Rate [Right Pulse Oximeter] 79 79 Respiratory Rate 14 14 14 Blood Pressure [Ri ght Arm] 154/67 H Blood Pressure [ri ght lower leg] Pulse Oximetry 96 96 Oxygen Delivery Me thod Nasal Cannula Nasal Cannula Oxygen Flow Rate 1 1 01/06/24 19:49 01/06/24 19:51 01/06/24 22:32 Temperature 97.5 F L 97.5 F L Pulse Rate [Right Pulse Oximeter] 787 H 87 Respiratory Rate 18 18 14 Blood Pressure [Ri ght Arm] Blood Pressure [ri ght lower leg] 100/65 100/65 Pulse Oximetry 94 94 94 Oxygen Delivery Me thod Room Air Room Air Room Air Oxygen Flow Rate 01/06/24 22:35 01/06/24 23:00 01/06/24 23:00 Temperature 97.3 F L 97.3 F L Pulse Rate [Right Pulse Oximeter] 85 85 85 Respiratory Rate 14 14 14 Blood Pressure [Ri ght Arm] Blood Pressure [ri ght lower leg] 124/71 124/71 Pulse Oximetry 94 94 Oxygen Delivery Me thod Room Air Room Air Oxygen Flow Rate 01/07/24 02:47 01/07/24 02:48 01/07/24 07:00 Temperature 97.5 F L 97.5 F L 97.6 F Pulse Rate [Right Pulse Oximeter] 85 85 86 Respiratory Rate 16 16 16 Blood Pressure [Ri ght Arm] 156/73 H Blood Pressure [ri ght lower leg] 132/67 132/67 Pulse Oximetry 91 91 91 Oxygen Delivery Me thod Room Air Room Air Room Air Oxygen Flow Rate 01/07/24 08:10 01/07/24 08:10 01/07/24 11:00 Temperature 97.6 F Pulse Rate [Right Pulse Oximeter] 80 80 Respiratory Rate 16 16 16 Blood Pressure [Ri ght Arm] Blood Pressure [ri t lower leg] 124/77 Pulse Oximetry 91 91 Oxygen Delivery Me thod Room Air Room Air Oxygen Flow Rate 1 Labs Labs: Laboratory Results - last 24 hr 01/07/24 05:49 WBC 12.40 H RBC 3.39 L Hgb 10.2 L Hct 31.0 L MCV 91 MCH 30 MCHC 33 RDW Coeff of Alicia 12.1 Plt Count 286 Neut % (Auto) 78.2 H Lymph % (Auto) 11.1 L Coleman % (Auto) 9.4 Eos % (Auto) 0.6 Baso % (Auto) 0.5 Neut # (Auto) 9.70 H Lymph # (Auto) 1.40 Coleman # (Auto) 1.20 H Eos # (Auto) 0.10 Baso # (Auto) 0.10 Abs Immat Gran (auto) 0.00 Imm/Tot Granulo (auto) 0.2 Sodium 132 L Potassium 3.8 Chloride 101 Carbon Dioxide 26 Anion Gap 5 L BUN 12 Creatinine 0.7 Estimated Creat Clear 43.18 Estimated GFR 95 Glucose 117 H Calcium 8.7 Total Bilirubin 0.6 AST 40 H ALT 46 H Alkaline Phosphatase 241 H Total Protein 6.4 Albumin 3.4
[2024-01-07] MEDS: OXYCODONE 5 MG TABLET PO (19:28)
--- NOTE | 2024-01-07 19:28 | PC.NURSE ---
Patient alert and orientedx4 with forgetfulness. Up in the chair for lunch with AX2 with a walker and gait belt. Needs alot of ques to move her legs during transfers. Had a BM this shift. Continues to have a poor appetite. PRN tylenol given for pain. Vital signs and BG stable this shift. Wound on frye covered with meplex. No new wounds noted this shift. Family visited.
[2024-01-07] MEDS: ATORVASTATIN 10 MG TABLET 20 MG PO (20:37)
[2024-01-07] MEDS: THIAMINE 100 MG TABLET PO (21:58)
[2024-01-08] VITALS (7 sets, daily range): BP systolic 137–169; BP diastolic 73–82; PULSE 88–99; RESP 16–20; TEMP 35.6–36.6; O2SAT 92–94; BMI 19.9
[2024-01-08] MEDS: OMEPRAZOLE 20 MG CAPSULE DR PO (06:00)
--- NOTE | 2024-01-08 06:47 | PC.NURSE ---
End of shift note [id number]: Pt noted to be alert & oriented x 4 though does have some intermittent forgetfulness/cognitive impairment noted with bed alarm utilized due to high fall risk. Blood glucose of 164 last evening with insulins administered per orders. VSS and pt has been afebrile. IV near R wrist patent and SL. Pt has been incontinent of urine this shift. PRN Oxycodone administered for report of 7/10 bilateral hip/pelvic pain last evening which was effective upon followup. CIWA scores 0-1 throughout the shift.
[2024-01-08] MEDS: SODIUM CHLORIDE 0.9 % (FLUSH) 10 ML SYRINGE 5 ML IVF ×2 (09:36→21:21)
[2024-01-08] MEDS: SERTRALINE 50 MG TABLET PO (09:36)
[2024-01-08] MEDS: LACOSAMIDE 50 MG TABLET 100 MG PO ×2 (09:37→21:20)
[2024-01-08] MEDS: ASPIRIN 81 MG TABLET EC PO (09:37)
[2024-01-08] MEDS: FOLIC ACID 1 MG TABLET PO (09:37)
[2024-01-08] MEDS: CLOPIDOGREL 75 MG TABLET PO (09:37)
[2024-01-08] MEDS: levETIRAcetam 500 MG TABLET 750 MG PO ×2 (09:38→21:19)
--- NOTE | 2024-01-08 09:55 | PM.ORCN ---
History of Present Illness HPI Date Seen: 01/08/24 Chief complaint: fall Narrative: Bella is a 68 year old female who presented to the ER by ambulance 01/05/2024 for left arm pain after having a fall at home; she tripped over her walker, hit left elbow. Thinks she hit her head but denies LOC. She doesn't believe that she had dizziness or palpitations, but notably a poor historian. Incidentally, she also notices some pain with sitting or moving positions well it in a sitting posture or laying in bed. ETOH use was possibly involved in the fall, also admits to using cocaine on the 03 of January. In the emergency department, x-rays and or CT scan revealed the following. - nondisplaced fractures of right superior and inferior pubic rami - acute transverse fracture through olecranon of left elbow, this was splinted in ED - no acute findings on imaging of C-spine, ribs, or head + cocaine and opiates on Utox, negative ETOH + nitrite on UA, no symptoms PFSH PFSH Medical History (Updated 01/07/24 @ 17:48 by Meg Parsons MD) Nonischemic cardiomyopathy ?I42.8 - Other cardiomyopathies (ICD-10) Seizure disorder ?G40.909 - Epilepsy, unspecified, not intractable, without status epilepticus (ICD-10) Type 1 diabetes mellitus ?E10.9 - Type 1 diabetes mellitus without complications (ICD-10) Peripheral vascular disease ?I73.9 - Peripheral vascular disease, unspecified (ICD-10) Alcohol abuse ?F10.10 - Alcohol abuse, uncomplicated (ICD-10) Normocytic anemia ?D64.9 - Anemia, unspecified (ICD-10) Elevated liver enzymes ?R74.8 - Abnormal levels of other serum enzymes (ICD-10) Hypertension ?I10 - Essential (primary) hypertension (ICD-10) Surgical History Amputation toe ?S98.139A - Complete traumatic amputation of one unspecified lesser toe, initial encounter (ICD-10) S/P trigger finger release ?Z98.890 - Other specified postprocedural states (ICD-10) S/P appendectomy ?Z90.49 - Acquired absence of other specified parts of digestive tract (ICD-10) H/O endarterectomy ?Z98.890 - Other specified postprocedural states (ICD-10) Hx of cholecystectomy ?Z90.49 - Acquired absence of other specified parts of digestive tract (ICD-10) H/O tubal ligation ?Z98.51 - Tubal ligation status (ICD-10) Social History Narrative: Lives in [place] with partner. Two children, daughter Irena would be medical decision maker if needed. Not currently working. Smokes a few cigarettes/day, denies ETOH use during this admission. Occasional THC and cocaine. Full code status. What is your current living situation?: I presently have a place to live Problems where you live: no known problems Problems where you live details: N/A In the past 12 months, utilities in danger of being shut off: no In past 12 months, lack of transportation kept you from medical appts, meetings, work, or getting things needed for daily living: no In the past 12 mos, have been you worried that your food would run out before you had money to buy more?: never true In the past 12 mos, the food you bought just didn't last and you didn't have money to buy more?: never true Highest level of school completed/degree received: Associate degree: occupational, technical, vocational program Smoking Status: Current every day smoker What tobacco products do you use: cigarettes Smoking quit date/years: <= 15 years ago Do you use any of these nicotine containing products: None Nicotine containing products detail: Per patient statement 1-2 cigarettes per day Second hand tobacco smoke exposure: No How often do you have a drink containing alcohol: 2-4 times a month Alcohol type: beer How many standard drinks containing alcohol do you have on a typical day: 1 or 2 How often do you have six or more drinks on one occasion: Never AUDIT-C Alcohol total score: 2 Non-prescribed substance use: denies use Caffeine: Yes How often does anyone, including family, friends and others, physically hurt you: never How often does anyone, including family, friends and others, insult or talk down to you: never How often does anyone, including family, friends and others, threaten you with harm: never How often does anyone, including family, friends and others, scream or curse at you: never service: No Meds Home Medications and Allergies Home Medications ?Medication ?Instructions ?Recorded ?Confirmed ?Type gabapentin 600 mg tablet 900 mg PO HS 04/03/22 01/05/24 History insulin glargine 100 unit/mL 19 unit subcut HS 04/03/22 01/05/24 History subcutaneous solution (Lantus U-100 Insulin) insulin regular human 100 unit/mL 7 - 11 unit subcut TID 04/03/22 01/05/24 History injection solution (Novolin R Regular U-100 Insulin) lacosamide 100 mg tablet 100 mg PO BID 04/03/22 01/05/24 History levetiracetam 750 mg tablet 750 mg PO BID 04/03/22 01/05/24 History lisinopril 10 mg tablet 5 mg PO DAILY 04/03/22 01/05/24 History sertraline 50 mg tablet 50 mg PO DAILY 04/03/22 01/05/24 History aspirin 81 mg tablet,delayed 81 mg PO DAILY 01/31/23 01/05/24 History release (Adult Aspirin Regimen) clopidogrel 75 mg tablet 75 mg PO DAILY 01/31/23 01/05/24 History atorvastatin 20 mg tablet 20 mg PO HS 04/21/23 01/05/24 History gabapentin 600 mg tablet 600 mg PO DAILY 04/21/23 01/05/24 History metoprolol succinate 100 mg 150 mg PO DAILY 04/21/23 01/05/24 History tablet,extended release 24 hr multivitamin (Daily Multi-Vitamin 1 tab PO DAILY 04/21/23 01/05/24 History tablet) nitroglycerin 0.4 mg sublingual 0.4 mg sublingual Q5M PRN 04/21/23 01/05/24 History tablet tiotropium bromide 2.5 2 inh inhalation DAILY 01/05/24 01/05/24 History mcg/actuation mist for inhalation (Spiriva Respimat) Allergies Allergy/AdvReac Type Severity Reaction Status Date / Time No Known Drug Allergies Allergy Verified 04/03/22 10:13 Ortho Exam Narrative Exam Narrative: She is alert and ordered x3. Cooperative the exam. Memory intact both remote and recent events regarding today's presenting complaint. Lying supine in the hospital bed comfortably. No acute distress. Left elbow exam shows long-arm splint in place. Neurologically intact left upper extremity in the radial, ulnar, and median nerve distribution to sensory light touch and motor function. Palpable radial pulse. Tender palpation around the left elbow posteriorly as be expected. Regarding the pelvis, she does have pain with attempted moving positions in the hospital bed today slightly more on the right than the left. Neurologically intact all 5 dermatomes/myotomes bilateral lower extremities. 2+ DP pulses bilaterally. Const Vital Signs, click to edit/add: Vital Signs - 24 hr 01/07/24 11:00 01/07/24 15:00 01/07/24 15:50 Temperature 97.6 F 97.6 F Pulse Rate [Right Pulse Oximeter] 80 85 Respiratory Rate 16 16 Blood Pressure [Right Arm] 121/71 Blood Pressure [right lower leg] 124/77 Pulse Oximetry 91 95 Oxygen Delivery Method Room Air Room Air Room Air Oxygen Flow Rate 01/07/24 19:31 01/07/24 19:32 01/07/24 22:57 Temperature 97.2 F L 97.2 F L Pulse Rate [Right Pulse Oximeter] 84 84 Respiratory Rate 16 16 16 Blood Pressure [Right Arm] Blood Pressure [right lower leg] 139/75 139/75 Pulse Oximetry 95 95 94 Oxygen Delivery Method Room Air Room Air Room Air Oxygen Flow Rate 01/07/24 22:59 01/07/24 22:59 01/07/24 23:00 Temperature 97.6 F 97.6 F Pulse Rate [Right Pulse Oximeter] 86 86 86 Respiratory Rate 16 16 16 Blood Pressure [Right Arm] Blood Pressure [right lower leg] 138/80 138/80 Pulse Oximetry 94 94 Oxygen Delivery Method Room Air Room Air Oxygen Flow Rate 1 01/08/24 03:08 01/08/24 03:09 01/08/24 07:00 Temperature 97.6 F 97.6 F 96.0 F L Pulse Rate [Right Pulse Oximeter] 94 94 98 Respiratory Rate 16 16 20 Blood Pressure [Right Arm] 163/76 H Blood Pressure [right lower leg] 149/82 H 149/82 H Pulse Oximetry 93 93 94 Oxygen Delivery Method Room Air Room Air Room Air Oxygen Flow Rate 01/08/24 07:00 01/08/24 07:00 Temperature 96.0 F L Pulse Rate [Right Pulse Oximeter] 98 Respiratory Rate 20 Blood Pressure [Right Arm] 163/76 H Blood Pressure [right lower leg] Pulse Oximetry 94 94 Oxygen Delivery Method Room Air Room Air Oxygen Flow Rate Results Labs Labs: Laboratory Results - last 48 hr 01/07/24 05:49 WBC 12.40 H RBC 3.39 L Hgb 10.2 L Hct 31.0 L MCV 91 MCH 30 MCHC 33 RDW Coeff of Alicia 12.1 Plt Count 286 Neut % (Auto) 78.2 H Lymph % (Auto) 11.1 L Calloway % (Auto) 9.4 Eos % (Auto) 0.6 Baso % (Auto) 0.5 Neut # (Auto) 9.70 H Lymph # (Auto) 1.40 Calloway # (Auto) 1.20 H Eos # (Auto) 0.10 Baso # (Auto) 0.10 Abs Immat Gran (auto) 0.00 Imm/Tot Granulo (auto) 0.2 Sodium 132 L Potassium 3.8 Chloride 101 Carbon Dioxide 26 Anion Gap 5 L BUN 12 Creatinine 0.7 Estimated Creat Clear 43.18 Estimated GFR 95 Glucose 117 H Calcium 8.7 Total Bilirubin 0.6 AST 40 H ALT 46 H Alkaline Phosphatase 241 H Total Protein 6.4 Albumin 3.4 Diagnostic results Additional Comments: Radiographs included AP pelvis, AP and lateral views the right femur, AP and lateral views left elbow were ordered by a different provider and reviewed by me. This demonstrates the following: Right inferior pubic ramus fracture and superior pubic root fracture-minimally displaced. No appreciable fracture about the right femur. Well-preserved hip joint spaces bilaterally. Arteriosclerosis noted of the iliac, femoral, and popliteal arteries. Left olecranon transverse fracture, intra-articular, significantly displaced (~ 2 cm) S with surrounding soft tissue swelling and left elbow effusion. CT scan cervical spine revealed no acute fractures, subluxation, or other intraosseous pathology. Incidentally, cervical spondylosis noted to be most involved at the C5-6 level with multiple level facet arthrosis. Assessment and Plan Assessment and plan (1) Closed olecranon fracture: Problem comment: - splinted in ED 01/05/24 - Pain well controlled Status: Acute Total time spent: Total time spent is greater than 50% in coordination of care (as documented) at patient's floor/unit and/or counseling patient: (2) Pelvic fracture: Problem comment: - s/p fall 01/04/24 - therapies ordered, will likely need TCU Status: Acute Total time spent: Total time spent is greater than 50% in coordination of care (as documented) at patient's floor/unit and/or counseling patient: (3) Recurrent falls: Problem comment: - hospitalized for falls in the past - therapies ordered, will likely need TCU given current injuries Status: Acute Total time spent: Total time spent is greater than 50% in coordination of care (as documented) at patient's floor/unit and/or counseling patient: (4) Alcohol abuse: Problem comment: - suspected - per chart review, noted to have + ETOH withdrawal in 2022 - patient denies use at this time, will follow [facility]WA - nicotine replacement available prn Status: Acute Total time spent: Total time spent is greater than 50% in coordination of care (as documented) at patient's floor/unit and/or counseling patient: (5) Elevated liver enzymes: Problem comment: - previously 2:1 AST:ALT, currently ALT is higher - patient denies ETOH use currently, no abdominal pain - follow LFTs, imaging pending clinical course - 01/06 improving Status: Chronic Total time spent: Total time spent is greater than 50% in coordination of care (as documented) at patient's floor/unit and/or counseling patient: (6) Normocytic anemia: Problem comment: - chronic per chart review, baseline - - no current concerns of bleeding, add PPI - hemoglobin stable at 10.2 Status: Chronic Total time spent: Total time spent is greater than 50% in coordination of care (as documented) at patient's floor/unit and/or counseling patient: (7) Hypertension: Problem comment: - good control on home doses of Metoprolol and Lisinopril, will continue - blood pressure control is adequate. Continue current medications and monitor. Status: Chronic Total time spent: Total time spent is greater than 50% in coordination of care (as documented) at patient's floor/unit and/or counseling patient: (8) Hyponatremia: Problem comment: - on admission: mild, corrects to normal given hyperglycemia - 01/06 sodium 132 Status: Acute Total time spent: Total time spent is greater than 50% in coordination of care (as documented) at patient's floor/unit and/or counseling patient: (9) Type 1 diabetes mellitus: Problem comment: - last A1C 9.08 September 2023 - continue insulin home doses + sliding scale - 7/6 blood glucoses are 192-284, increase levemir - 7 had low yesterday of which she was unaware. Decrease levemir. Monitor. Status: Chronic Total time spent: Total time spent is greater than 50% in coordination of care (as documented) at patient's floor/unit and/or counseling patient: (10) Seizure disorder: Problem comment: - patient doesn't remember when she last had a seizure - continue home doses of Keppra and Vimpat Status: Chronic Total time spent: Total time spent is greater than 50% in coordination of care (as documented) at patient's floor/unit and/or counseling patient: Plan Had a good discussion today with the patient. Helped her understand her current musculoskeletal pathology. The right-sided inferior and superior pubic rami fractures should do well in a nonoperative manner. I would suggest weightbear as tolerated. Range of motion as tolerated. I communicated that she will likely have some pain with these activities for a couple months. A walker ambulation assistance would typically be helpful, but this would be difficult with her left olecranon fracture. Given her left olecranon fracture which is displaced, I would recommend surgery for this as well. Surgery would be for ORIF with hardware of some variety. Her bone quality may dictate this. We discussed the risks, benefits, and alternatives to this specific surgery. Particularly for her, the risk for infection, wound healing issues, and delayed union is very relevant given her poorly-controlled diabetes (hemoglobin A1c of 9.8 from 09/2023). In addition, her tendency for alcohol and or illicit drug use is noteworthy and puts her at risk for noncompliance in the postoperative time. I communicated these things frankly to her, and she understands the importance of trying to help this heal as soon as possible. Will plan for surgery in the near future. Not today as the patient did eat within the last few minutes. Therefore, surgical either be tomorrow morning or the following morning. Placement for a rehab facility/intermediate facility in the postoperative time is pending. No bed is currently available for her. Finally, I have communicated with the hospitalist team regarding her findings and coordinate care accordingly.
--- NOTE | 2024-01-08 11:31 | PM.IMPN1 ---
Progress Note: A&P Assessment and plan (1) Closed olecranon fracture: Problem details: - splinted in ED 01/05/24, requires surgical intervention. Reviewed with Ortho, likely will have repair tomorrow or Monday - Pain well controlled at this time Status: Acute (2) Pelvic fracture: Problem details: - s/p fall 01/04/24 - therapies ordered, will likely need TCU Status: Acute (3) Type 1 diabetes mellitus: Problem details: - last A1C 9.08 September 2023 - continue insulin home doses + sliding scale - 01/05 blood glucoses are 192-284, increased Levemir - 01/06 had low yesterday of which she was unaware. Decreased Levemir, continue to follow Status: Chronic (4) Coronary artery disease: Problem details: - had an RCA stent placed on 01/04/23; required 1 year uninterrupted Plavix at that time - Plavix has been continued during stay given PVD, R femoral endarterectmy 10/2023 - holding Plavix and ASA as of 01/07 for upcoming surgery Status: Acute (5) Nonischemic cardiomyopathy: Problem details: - with HFrEF. Cardiomyopathy noted on cardiac MRI 11/2023, LVEF 46% - follows with Cardiology as an outpatient - EKG reveals stable LBBB, no acute changes, telemetry stable - reviewed upcoming surgery with Cardiology on 01/07 by phone, no further workup needed prior to surgery Status: Chronic (6) Recurrent falls: Problem details: - hospitalized for falls in the past - therapies ordered, will likely need TCU given current injuries Status: Acute (7) Elevated liver enzymes: Problem details: - previously 2:1 AST:ALT, currently ALT is higher - patient denies ETOH use currently, no abdominal pain - follow LFTs, imaging pending clinical course - since admission, stable/improving Status: Chronic (8) Normocytic anemia: Problem details: - chronic per chart review, baseline 9-11 - no current concerns of bleeding, on PPI - hemoglobin stable at 10.2 Status: Chronic (9) Hypertension: Problem details: - good control on home doses of Metoprolol and Lisinopril, will continue as she has age appropriate control Status: Chronic (10) Hyponatremia: Problem details: - on admission: mild, corrects to normal given hyperglycemia - asymptomatic, stable 132-133 Status: Acute (11) Seizure disorder: Problem details: - patient doesn't remember when she last had a seizure - continue home doses of Keppra and Vimpat Status: Chronic (12) Alcohol abuse: Problem details: - suspected; per chart review, noted to have + ETOH withdrawal in 2022 - patient denies use at this time, CIWAs negative from admission - nicotine replacement available prn Status: Acute Plan - per above - plan for TCU discharge after surgical intervention of left olecranon fracture Subjective Date Seen: 01/08/24 Interval history: Bella was admitted to the hospital on 01/04 after a mechanical fall at home, resulting in a L olecranon fracture and fractures of R superior and inferior pubic rami. She has been working with therapies, Ortho has consulted given olecranon fracture, will need surgery and will likely require TCU postoperatively. Over the weekend, she was found to have decreased blood sugars with hypoglycemia unawareness. BG 160-180 in the past 24 hours. No concerns for hospitalist team today. Exam Narrative: Exam Narrative: GEN: Alert and sitting comfortably in bed, eating breakfast. Answering questions appropriately HEENT: Normal external ears, EOMIs bilaterally, some missing teeth without concerns of active dental infection, no scleral icterus CV: RRR, No concerning murmurs R: LCTA bilaterally without concerning wheezing, air movement or adequate Ext: wwp, no concerning edema Skin: Scattered bruising over extremities Neuro: No focal deficits or resting tremor. Normal sensation, capillary refill, and movement of left fingers distal to splint Psych: Appropriate Const: Vital Signs, click to edit/add: Vital Signs - 24 hr 01/07/24 15:00 01/07/24 15:50 01/07/24 19:31 Temperature 97.6 F 97.2 F L Pulse Rate [Right Pulse Oximeter] 85 84 Respiratory Rate 16 16 Blood Pressure [Ri ght Arm] 121/71 Blood Pressure [ri ght lower leg] 139/75 Pulse Oximetry 95 95 Oxygen Delivery Me thod Room Air Room Air Room Air Oxygen Flow Rate 01/07/24 19:32 01/07/24 22:57 01/07/24 22:59 Temperature 97.2 F L 97.6 F Pulse Rate [Right Pulse Oximeter] 84 86 Respiratory Rate 16 16 16 Blood Pressure [Ri ght Arm] Blood Pressure [ri ght lower leg] 139/75 138/80 Pulse Oximetry 95 94 94 Oxygen Delivery Me thod Room Air Room Air Room Air Oxygen Flow Rate 1 01/07/24 22:59 01/07/24 23:00 01/08/24 03:08 Temperature 97.6 F 97.6 F Pulse Rate [Right Pulse Oximeter] 86 86 94 Respiratory Rate 16 16 16 Blood Pressure [Ri ght Arm] Blood Pressure [ri ght lower leg] 138/80 149/82 H Pulse Oximetry 94 93 Oxygen Delivery Me thod Room Air Room Air Oxygen Flow Rate 01/08/24 03:09 01/08/24 07:00 01/08/24 07:00 Temperature 97.6 F 96.0 F L Pulse Rate [Right Pulse Oximeter] 94 98 Respiratory Rate 16 20 Blood Pressure [Ri ght Arm] 163/76 H Blood Pressure [ri ght lower leg] 149/82 H Pulse Oximetry 93 94 94 Oxygen Delivery Me thod Room Air Room Air Room Air Oxygen Flow Rate 01/08/24 07:00 01/08/24 07:00 01/08/24 11:00 Temperature 96.0 F L 97.0 F L Pulse Rate [Right Pulse Oximeter] 98 98 99 Respiratory Rate 20 20 18 Blood Pressure [Ri ght Arm] 163/76 H 164/79 H Blood Pressure [ri ght lower leg] Pulse Oximetry 94 94 Oxygen Delivery Me thod Room Air Room Air Oxygen Flow Rate 01/08/24 11:00 Temperature 97.0 F L Pulse Rate [Right Pulse Oximeter] 99 Respiratory Rate 18 Blood Pressure [Ri ght Arm] 164/79 H Blood Pressure [ri ght lower leg] Pulse Oximetry 94 Oxygen Delivery Me thod Room Air Oxygen Flow Rate
[2024-01-08] MEDS: ACETAMINOPHEN 325 MG TABLET 650 MG PO (12:46)
[2024-01-08] MEDS: OXYCODONE 5 MG TABLET PO ×2 (12:46→21:18)
--- NOTE | 2024-01-08 13:34 | PC.NURSE ---
End of Shift Note. Patient was in bed until lunch time and then was assisted to the recliner for lunch. She had only been up maybe an hour when she wanted to lay back down in bed. Explained to her how important it is to be up as much as possible. She did take some pain medication with lunch. She is possibly having surgery either Monday or Monday on her left elbow. Unsure of what discharge plan will be. Possibly needs to go to a SNF for more rehab due to elbow fracture and her pelvic fracture. Will continue to monitor until next shift arrives.
--- NOTE | 2024-01-08 16:29 | PC.SOCIAL ---
Discharge planning- Per MD, patient will have surgery in the next few days and may require SNF. Met with patient and discussed discharge plans. If patient requires SNF she would like to go to [facility] in [place]. Patient informs that she has been to [facility] in the past. Informed patient that social work will continue to follow up and assist with discharge plans.
[2024-01-08] MEDS: ATORVASTATIN 10 MG TABLET 20 MG PO (21:19)
[2024-01-08] MEDS: NITROFURANTOIN MONOHYD MACRO 100 MG CAPSULE PO (21:20)
[2024-01-08] MEDS: INSULIN ASPART 100 UNIT/ML SUBCUT (21:27)
[2024-01-09] MEDS: 5 % DEX/0.45 SOD CHL+KCL20 mEq 1,000 ML 125 ML IV ×2 (00:42→07:43)
[2024-01-09 03:44] VITALS: BP 179/90; PULSE 101; RESP 18; TEMP 37.1; O2SAT 96
[2024-01-09] MEDS: OMEPRAZOLE 20 MG CAPSULE DR PO (05:49)
--- NOTE | 2024-01-09 06:58 | PC.NURSE ---
Pt alert and oriented x3 but has some difficulties following directions and some forgetfulness. Pt?denies pain, headache, SOB, and N/V. Pt?s left arm is?MISSAEL wrapped and elevated. Meplex to left frye is CDI. Pt has been NPO since midnight. Pt is A2 pivot to commode with gait belt. Pt slept throughout most of night. ?
[2024-01-09 07:00] VITALS: BP 169/76; PULSE 104; RESP 16; TEMP 36.6; O2SAT 95
[2024-01-09 07:09] LABS: Basophils Absolute Auto 0.03 K/uL (0.00-0.30); Basophils Percent Auto 0.3 % (0.0-3.0); Eosinophils Absolute Auto 0.08 K/uL (0.00-0.50); Eosinophils Percent Auto 0.8 % (0.0-7.0); Hemoglobin* 9.4 gm/dL (12.0-16.0); Immature Granulocytes Abs Auto 0.02 K/uL (0.00-0.30); Immature Granulocytes Pct Auto 0.2 %; Lymphocytes Percent Auto 10.6 % (20-44); Mean Corpuscular HGB Conc 34 gm/dL (32-36); Mean Corpuscular Hemoglobin 30 pg (26-34); Mean Corpuscular Volume 91 fL (80-100); Monocytes Percent Auto 11.6 % (0.0-11.0); Neutrophils Percent Auto 76.5 % (42.0-72.0); Platelet Count* 288 K/uL (140-440); RDW Coefficient of Variation % 12.1 % (11.5-15.5); Red Blood Count 3.09 m/uL (4.00-5.20); White Blood Count* 9.83 K/uL (4.50-11.00)
[2024-01-09 07:10] LABS: Chloride* 101 mmol/L (96-114)
[2024-01-09 07:11] LABS: Potassium* 3.8 mmol/L (3.6-5.1); Sodium* 133 mmol/L (135-149)
[2024-01-09 07:12] LABS: Albumin* 3.1 g/dL (3.3-5.0)
[2024-01-09 07:13] LABS: Creatinine* 0.6 mg/dL (0.5-1.5); Est. Creatinine Clearance* 41.95; Estimated Glomerular Filt Rate 98 ml/min
[2024-01-09 07:14] LABS: Anion Gap 7 mEq/L (7-15); Bilirubin Direct* 0.2 mg/dL (0.0-0.5); Bilirubin Total* 0.5 mg/dL (0.1-1.5); Blood Urea Nitrogen* 9 mg/dL (7-30); Carbon Dioxide* 25 mmol/L (20-32); Glucose* 254 mg/dL (60-115)
[2024-01-09 07:15] LABS: Alanine Aminotransferase* 30 U/L (4-35); Alkaline Phosphatase* 212 U/L (40-150); Aspartate Amino Transferase* 27 U/L (12-35)
[2024-01-09 07:35] LABS: Slide Review Reflex No
[2024-01-09] MEDS: INSULIN ASPART 100 UNIT/ML SUBCUT ×3 (07:43→21:59)
[2024-01-09] MEDS: SERTRALINE 50 MG TABLET PO (09:02)
[2024-01-09] MEDS: levETIRAcetam 500 MG TABLET 750 MG PO ×2 (09:02→21:06)
[2024-01-09] MEDS: NITROFURANTOIN MONOHYD MACRO 100 MG CAPSULE PO ×2 (09:02→21:06)
[2024-01-09] MEDS: FOLIC ACID 1 MG TABLET PO (09:02)
[2024-01-09] MEDS: LACOSAMIDE 50 MG TABLET 100 MG PO ×2 (09:23→21:09)
[2024-01-09] MEDS: ACETAMINOPHEN 325 MG TABLET 650 MG PO (09:31)
[2024-01-09] MEDS: OXYCODONE 5 MG TABLET PO (09:31)
--- NOTE | 2024-01-09 10:49 | P.IMPN_ITS ---
Progress Note: A&P Assessment and plan (1) Closed olecranon fracture: Problem details: - splinted in ED 01/05/24, requires surgical intervention. Orthopedic surgery following, surgery scheduled for tomorrow (01/09) - holding aspirin and Plavix (completed 1 year uninterrupted Plavix on 01/05/2024 after RCA stent) - Pain well controlled at this time Status: Acute (2) Pelvic fracture: Problem details: - s/p fall 01/04/24 - therapies ordered, will likely need TCU Status: Acute (3) Type 1 diabetes mellitus: Problem details: - last A1C 9.08 September 2023 - continue insulin home doses + sliding scale - 01/05 blood glucoses are 192-284, increased Levemir - 01/06 had low yesterday of which she was unaware. Decreased Levemir, continue to follow Status: Chronic (4) Coronary artery disease: Problem details: - had an RCA stent placed on 01/04/23; required 1 year uninterrupted Plavix at that time - Plavix has been continued during stay given PVD, R femoral endarterectomy 10/2023 - holding Plavix and ASA as of 01/07 for upcoming surgery Status: Acute (5) Nonischemic cardiomyopathy: Problem details: - with HFrEF. Cardiomyopathy noted on cardiac MRI 11/2023, LVEF 46% - follows with Cardiology as an outpatient - EKG reveals stable LBBB, no acute changes, telemetry stable - reviewed upcoming surgery with Cardiology on 01/07 by phone, no further workup needed prior to surgery Status: Chronic (6) Recurrent falls: Problem details: - hospitalized for falls in the past - therapies ordered, will likely need TCU given current injuries Status: Acute (7) Elevated liver enzymes: Problem details: - previously 2:1 AST:ALT, currently ALT is higher - patient denies ETOH use currently, no abdominal pain or other concerning symptoms - follow LFTs, imaging pending clinical course - since admission, stable/improving Status: Chronic (8) Normocytic anemia: Problem details: - chronic per chart review, baseline 9-11 - no current concerns of bleeding, on PPI - hemoglobin stable at 10.2 Status: Chronic (9) Hypertension: Problem details: - good control on home doses of Metoprolol and Lisinopril, will continue as she has age appropriate control Status: Chronic (10) Hyponatremia: Problem details: - on admission: mild, corrects to normal given hyperglycemia - asymptomatic, stable 132-133 Status: Acute (11) Seizure disorder: Problem details: - patient doesn't remember when she last had a seizure - continue home doses of Keppra and Vimpat Status: Chronic (12) Alcohol abuse: Problem details: - suspected; per chart review, noted to have + ETOH withdrawal in 2022 - patient denies use at this time, CIWAs negative from admission - nicotine replacement available prn Status: Acute Plan - per above - will likely need TCU stay postoperatively Subjective Date Seen: 01/09/24 Interval history: Bella was admitted to the hospital on 01/04 after a mechanical fall at home, resulting in a L olecranon fracture and fractures of R superior and inferior pubic rami. She has been working with therapies and Ortho is following given olecranon fracture, will have surgery tomorrow (01/09) and will require TCU postoperatively. She is a Type 1 diabetic. During stay, we have made some insulin changes following an episode of hypoglycemia unawareness. BG 75-255 in the past 24 hours. Her other comorbidities (PVD, seizure disorder, depression) have remained stable. Bella is awake and sitting comfortably in bed when I see her this morning; she has no concerns for hospitalist team today. Exam Narrative: Exam Narrative: GEN: Alert and oriented, nontoxic CV: RRR, soft systolic murmur without concerning features R: LCTA bilaterally without concerning wheezing, air movement Ext: wwp, no concerning edema adequate. Normal range of motion and sensation of left fingers distal to splint Skin: Scattered bruising of extremities Neuro: No focal deficits Psych: Appropriate Const: Vital Signs, click to edit/add: Vital Signs - 24 hr 01/08/24 11:00 01/08/24 11:01/08/24 15:00 Temperature 97.0 F L 97.0 F L Pulse Rate [Right Pulse Oximeter] 99 99 99 Respiratory Rate 18 18 18 Blood Pressure [Ri ght Arm] 164/79 H 164/79 H Pulse Oximetry 94 94 Oxygen Delivery Me thod Room Air Room Air 01/08/24 15:00 01/08/24 15:00 01/08/24 19:00 Temperature 98 F 97.8 F Pulse Rate [Right Pulse Oximeter] 90 88 Respiratory Rate 18 18 Blood Pressure [Ri ght Arm] 146/73 H 137/78 Pulse Oximetry 94 94 94 Oxygen Delivery Me thod Room Air Room Air Room Air 01/08/24 23:31 01/08/24 23:31 01/09/24 03:44 Temperature 97.7 F 98.8 F Pulse Rate [Right Pulse Oximeter] 97 101 H Respiratory Rate 18 18 18 Blood Pressure [Ri ght Arm] 169/82 H 179/90 H Pulse Oximetry 92 92 96 Oxygen Delivery Me thod Room Air Room Air Room Air 01/09/24 07:00 01/09/24 07:00 Temperature 97.8 F Pulse Rate [Right Pulse Oximeter] 104 H Respiratory Rate 16 Blood Pressure [Ri ght Arm] 169/76 H Pulse Oximetry 95 95 Oxygen Delivery Me thod Room Air Room Air Labs Labs: Laboratory Results - last 24 hr 01/09/24 05:50 WBC 9.83 RBC 3.09 L Hgb 9.4 L Hct 28.0 L MCV 91 MCH 30 MCHC 34 RDW Coeff of Alicia 12.1 Plt Count 288 Neut % (Auto) 76.5 H Lymph % (Auto) 10.6 L [place] % (Auto) 11.6 H Eos % (Auto) 0.8 Baso % (Auto) 0.3 Neut # (Auto) 7.50 H Lymph # (Auto) 1.00 [place] # (Auto) 1.10 H Eos # (Auto) 0.08 Baso # (Auto) 0.03 Abs Immat Gran (auto) 0.02 Imm/Tot Granulo (auto) 0.2 Sodium 133 L Potassium 3.8 Chloride 101 Carbon Dioxide 25 Anion Gap 7 BUN 9 Creatinine 0.6 Estimated Creat Clear 41.95 Estimated GFR 98 Glucose 254 H Calcium 8.0 L Total Bilirubin 0.5 Direct Bilirubin 0.2 AST 27 ALT 30 Alkaline Phosphatase 212 H Total Protein 6.0 Albumin 3.1 L
[2024-01-09 11:00] VITALS: BP 166/79; PULSE 91; RESP 16; TEMP 36.7; O2SAT 95
[2024-01-09 15:00] VITALS: BP 162/86; PULSE 96; RESP 16; TEMP 36.6; O2SAT 93
--- NOTE | 2024-01-09 15:05 | PC.NURSE ---
Pt is alert and oriented x3. Pt experiences some confusion throughout the shift. Pt used bedside commode with an assist x1 with GB and walker. Pt tolerated ambulating activity well after therapy. Pt was back on regular diet due to pushing surgery time back and tolerated fair. Breakfast was ordered, lunch was not. PRN pain medications were given this morning. Pt is calm and cooperative.
[2024-01-09 19:00] VITALS: BP 153/77; PULSE 105; RESP 18; TEMP 37; O2SAT 95
[2024-01-09] MEDS: ATORVASTATIN 10 MG TABLET 20 MG PO (21:05)
[2024-01-09] MEDS: SODIUM CHLORIDE 0.9 % (FLUSH) 10 ML SYRINGE 5 ML IVF (21:07)
[2024-01-09 23:00] VITALS: BP 156/89; PULSE 112; RESP 20; TEMP 36.3; O2SAT 96
[2024-01-10] VITALS (25 sets, daily range): BP systolic 107–171; BP diastolic 46–103; PULSE 80–107; RESP 14–18; TEMP 36.2–36.9; O2SAT 90–100
[2024-01-10] MEDS: 5 % DEXTROSE/0.9% SOD CHLORIDE 1,000 ML 125 ML IV ×2 (00:07→09:21)
[2024-01-10] MEDS: OMEPRAZOLE 20 MG CAPSULE DR PO (06:33)
[2024-01-10 06:55] LABS: Basophils Absolute Auto 0.05 K/uL (0.00-0.30); Basophils Percent Auto 0.7 % (0.0-3.0); Eosinophils Absolute Auto 0.13 K/uL (0.00-0.50); Eosinophils Percent Auto 1.9 % (0.0-7.0); Hematocrit 29.8 % (33.0-51.0); Hemoglobin* 9.8 gm/dL (12.0-16.0); Immature Granulocytes Abs Auto 0.02 K/uL (0.00-0.30); Immature Granulocytes Pct Auto 0.3 %; Lymphocytes Percent Auto 17.4 % (20-44); Mean Corpuscular HGB Conc 33 gm/dL (32-36); Mean Corpuscular Hemoglobin 30 pg (26-34); Mean Corpuscular Volume 92 fL (80-100); Monocytes Percent Auto 15.6 % (0.0-11.0); Neutrophils Absolute Auto 4.32 K/uL (1.7-7.0); Neutrophils Percent Auto 64.1 % (42.0-72.0); Platelet Count* 309 K/uL (140-440); RDW Coefficient of Variation % 12.2 % (11.5-15.5); Red Blood Count 3.24 m/uL (4.00-5.20); White Blood Count* 6.74 K/uL (4.50-11.00)
[2024-01-10 07:07] LABS: Slide Review Reflex No
[2024-01-10 07:29] LABS: Chloride* 101 mmol/L (96-114); Sodium* 133 mmol/L (135-149)
[2024-01-10 07:30] LABS: Potassium* 3.9 mmol/L (3.6-5.1)
[2024-01-10 07:32] LABS: Anion Gap 5 mEq/L (7-15); Carbon Dioxide* 27 mmol/L (20-32); Creatinine* 0.5 mg/dL (0.5-1.5); Est. Creatinine Clearance* 40.73; Estimated Glomerular Filt Rate 103 ml/min
[2024-01-10 07:33] LABS: Blood Urea Nitrogen* 9 mg/dL (7-30); Calcium* 8.4 mg/dL (8.4-10.6); Glucose* 313 mg/dL (60-115)
[2024-01-10] MEDS: OXYCODONE 5 MG TABLET PO (08:03)
[2024-01-10] MEDS: ACETAMINOPHEN 325 MG TABLET 650 MG PO ×2 (08:04→22:47)
--- NOTE | 2024-01-10 08:07 | PC.NURSE ---
Patient pleasant and cooperative with cares. Previous nurse reported that 1730 insulin was held due to pt feeling nauseated and not eating supper. BS at HS 376. Patient had eaten?yaw crackers and ice cream. Dr Mejia updated. Per MD give SS?insulin aspart,?one time Levemir dose at HS and recheck BS at 0200. 0200 BS 253. Pt NPO since midnight. IV fluids running since that time per orders.?Took scheduled Omeprazole this morning with a sip of water. Transferred to bedside commode slowly with assist of one, gait belt and side walker cane. Reported pelvic pain last evening , has denied pain since that time. ?
[2024-01-10] MEDS: INSULIN ASPART 100 UNIT/ML SUBCUT ×3 (08:10→22:34)
--- NOTE | 2024-01-10 08:15 | W.ANESCHARGE ---
Anesthesia Charges Start Date/Time Anesthesia Start Date: 01/10/24 Anesthesia Start Time: 11:24 Stop Date/Time Anesthesia Stop Date: 01/10/24 Anesthesia Stop Time: 13:44
[2024-01-10] MEDS: levETIRAcetam 500 MG TABLET 750 MG PO ×2 (08:57→22:32)
[2024-01-10] MEDS: NITROFURANTOIN MONOHYD MACRO 100 MG CAPSULE PO ×2 (08:57→22:30)
[2024-01-10] MEDS: SERTRALINE 50 MG TABLET PO (08:58)
[2024-01-10] MEDS: FOLIC ACID 1 MG TABLET PO (08:59)
[2024-01-10] MEDS: LACOSAMIDE 50 MG TABLET 100 MG PO ×2 (09:04→22:35)
[2024-01-10] MEDS: LACTATED RINGERS 1000 ML 1,000 ML 100 ML IV (11:00)
[2024-01-10] MEDS: fentaNYL 100 MCG/2 ML inj IVP (11:05)
[2024-01-10] MEDS: MIDAZOLAM HCL 1 MG/ML inj IVP (11:05)
--- NOTE | 2024-01-10 11:08 | W.PM.H&PU ---
History & Physical Update History & Physical Update H&P Updates: Plan is for left olecranon ORIF. No interval changes in her medical history from the day of my consultation.
--- NOTE | 2024-01-10 11:10 | SUR.PREOP ---
TIME?OUT:?1105 PT/RN/MDA?VERIFICATION?OF?SURGICAL?SITE Left elbow,?PROCEDURE Nerve Block,?AND?CONSENT OBTAINED?PRIOR?TO?INVASIVE?PROCEDURE.
--- NOTE | 2024-01-10 11:19 | P.NB_ITS ---
Nerve Block Nerve Block Time Seen by Provider: 11:05 Date Seen: 01/10/24 Type of block requested by surgeon for post-operative analgesia: supraclavicular Side: left Time out performed: Yes Verification of patient name: Yes Verification of date of : Yes Site marking: site marked Name of person performing procedure: Robert Continuous monitoring Was continuous monitoring of O2 sat, B/P, nurse monitoring, recorded every 15 minutes?: Yes Procedure Checklist: sterile prep, needles and gloves Ultrasound guided. Images saved: Yes Medications given in 5ml increments after negative aspiration: Ropivicaine %: 0.5 mL: 20 Needle gauge: 22 Decadron (mg): 10 Precedex (mcg): 25 Patient tolerated procedure well: Yes Block Charges Block Charge (with Pro Fee): Brachial Plexus Use of Ultrasound Machine for Block: Yes- US Guidance/pain block
[2024-01-10] MEDS: CEFAZOLIN 1 GM in 0.9 % SODIUM CHLORIDE Mini-bag 100 ML IVPB (11:36)
--- NOTE | 2024-01-10 12:00 | CRLHL7_ITS ---
For Patients: As a result of the Cures Act, medical imaging exams and procedure reports are released immediately into your electronic medical record. You may view this report before your referring provider. If you have questions, please contact your health care provider. Indication: Left elbow fracture Technique: Three fluoroscopic images of the left elbow. Fluoroscopic time 44.2 seconds. IMPRESSION: Fluoroscopic guidance for fixation of an olecranon fracture. Dictated by Isidoro Odell MD @ 01/11/2024 7:29:42 AM (Electronically Signed)
--- NOTE | 2024-01-10 13:20 | PM.IMPN1 ---
Progress Note: A&P Assessment and plan (1) Closed olecranon fracture: Problem details: - splinted in ED 01/05/24, requires surgical intervention. Orthopedic surgery following, surgery today (01/09) - holding aspirin and Plavix (completed 1 year uninterrupted Plavix on 01/05/2024 after RCA stent), will restart postoperatively - Pain well controlled at this time Status: Acute (2) Pelvic fracture: Problem details: - s/p fall 01/04/24 - therapies ordered, will likely need TCU Status: Acute (3) Type 1 diabetes mellitus: Problem details: - last A1C 9.08 September 2023 - continue insulin home doses + sliding scale - 01/05 blood glucoses are 192-284, increased Levemir - 01/06 had low yesterday of which she was unaware. Decreased Levemir, continue to follow - 01/09: sugars in the 300 (was on D5NS preoperatively), will follow after surgery and make corrections if neede Status: Chronic (4) Coronary artery disease: Problem details: - had an RCA stent placed on 01/04/23; required 1 year uninterrupted Plavix at that time - Plavix has been continued during stay given PVD, R femoral endarterectomy 10/2023 - holding Plavix and ASA as of 01/07 for upcoming surgery Status: Acute (5) Nonischemic cardiomyopathy: Problem details: - with HFrEF. Cardiomyopathy noted on cardiac MRI 11/2023, LVEF 46% - follows with Cardiology as an outpatient - EKG reveals stable LBBB, no acute changes, telemetry stable - reviewed upcoming surgery with Cardiology on 01/07 by phone, no further workup needed prior to surgery Status: Chronic (6) Recurrent falls: Problem details: - hospitalized for falls in the past - therapies ordered, will likely need TCU given current injuries Status: Acute (7) Elevated liver enzymes: Problem details: - previously 2:1 AST:ALT, currently ALT is higher - patient denies ETOH use currently, no abdominal pain or other concerning symptoms - follow LFTs, imaging pending clinical course - since admission, stable/improving Status: Chronic (8) Normocytic anemia: Problem details: - chronic per chart review, baseline 9-11 - no current concerns of bleeding, on PPI - hemoglobin stable at 10.2 Status: Chronic (9) Hypertension: Problem details: - good control on home doses of Metoprolol and Lisinopril, will continue as she has age appropriate control Status: Chronic (10) Hyponatremia: Problem details: - on admission: mild, corrects to normal given hyperglycemia - asymptomatic, stable 132-133 Status: Acute (11) Seizure disorder: Problem details: - patient doesn't remember when she last had a seizure - continue home doses of Keppra and Vimpat Status: Chronic (12) Alcohol abuse: Problem details: - suspected; per chart review, noted to have + ETOH withdrawal in 2022 - patient denies use at this time, CIWAs negative from admission - nicotine replacement available prn Status: Acute Plan - per above - will continue to follow postoperatively - TCU stay recommended Subjective Date Seen: 01/10/24 Interval history: Bella was admitted to the hospital on 01/04 after a mechanical fall at home, resulting in a L olecranon fracture, in addition to fractures of R superior and inferior pubic rami. She is having surgery today with Dr. Olivares of Orthopedic Surgery for her olecranon fracture, working with therapies for pelvic fractures. Patient will require TCU stay after surgery. Bella has DM1. During stay, we have made some insulin changes following an episode of hypoglycemia unawareness; current BG on the higher side (300s). Other comorbidities (PVD, seizure disorder, depression) have remained stable. Patient is sitting comfortably in bed during visit this morning with no concerns for hospitalist team. Exam Narrative: Exam Narrative: GEN: Alert and oriented, nontoxic CV: RRR, No concerning murmurs R: LCTA bilaterally, air movement adequate Ext: Left upper extremity is splinted, no concerning lower extremity edema Neuro: No focal deficits, no resting tremor Psych: Appropriate Const: Vital Signs, click to edit/add: Vital Signs - 24 hr 01/09/24 15:00 01/09/24 15:00 01/09/24 15:00 Temperature 97.9 F Pulse Rate Pulse Rate [Right Pulse Oximeter] 96 96 Respiratory Rate 16 16 16 Blood Pressure Blood Pressure [Ri ght Arm] 162/86 H Pulse Oximetry 93 93 Oxygen Delivery Me thod Room Air Room Air Oxygen Flow Rate 01/09/24 19:00 01/09/24 23:00 01/09/24 23:00 Temperature 98.6 F 97.3 F L Pulse Rate Pulse Rate [Right Pulse Oximeter] 105 H 112 H Respiratory Rate 18 20 20 Blood Pressure Blood Pressure [Ri ght Arm] 153/77 H 156/89 H Pulse Oximetry 95 96 96 Oxygen Delivery Me thod Room Air Room Air Room Air Oxygen Flow Rate 01/10/24 02:04 01/10/24 07:00 01/10/24 07:00 Temperature 97.2 F L Pulse Rate Pulse Rate [Right Pulse Oximeter] 107 H 100 Respiratory Rate 16 16 16 Blood Pressure Blood Pressure [Ri ght Arm] 170/82 H Pulse Oximetry 95 92 Oxygen Delivery Me thod Room Air Room Air Oxygen Flow Rate 01/10/24 07:00 01/10/24 09:00 01/10/24 11:00 Temperature 98 F 98.1 F Pulse Rate 81 Pulse Rate [Right Pulse Oximeter] 100 Respiratory Rate 16 16 Blood Pressure 146/80 H Blood Pressure [Ri ght Arm] 171/103 H 138/75 Pulse Oximetry 92 97 Oxygen Delivery Me thod Room Air Nasal Cannula Oxygen Flow Rate 1 2 01/10/24 11:05 01/10/24 11:10 Temperature Pulse Rate 85 92 Pulse Rate [Right Pulse Oximeter] Respiratory Rate 16 16 Blood Pressure 136/68 137/46 L Blood Pressure [Ri ght Arm] Pulse Oximetry 97 100 Oxygen Delivery Me thod Nasal Cannula Nasal Cannula Oxygen Flow Rate 2 2 Labs Labs: Laboratory Results - last 24 hr 01/10/24 05:58 WBC 6.74 RBC 3.24 L Hgb 9.8 L Hct 29.8 L MCV 92 MCH 30 MCHC 33 RDW Coeff of Alicia 12.2 Plt Count 309 Neut % (Auto) 64.1 Lymph % (Auto) 17.4 L [place] % (Auto) 15.6 H Eos % (Auto) 1.9 Baso % (Auto) 0.7 Neut # (Auto) 4.32 Lymph # (Auto) 1.20 [place] # (Auto) 1.10 H Eos # (Auto) 0.13 Baso # (Auto) 0.05 Abs Immat Gran (auto) 0.02 Imm/Tot Granulo (auto) 0.3 Sodium 133 L Potassium 3.9 Chloride 101 Carbon Dioxide 27 Anion Gap 5 L BUN 9 Creatinine 0.5 Estimated Creat Clear 40.73 Estimated GFR 103 Glucose 313 H Calcium 8.4
--- NOTE | 2024-01-10 13:21 | PM.ORPRC ---
Procedure Note Date of procedure: 01/10/24 Procedure: PREOPERATIVE DIAGNOSIS: 1. Left elbow olecranon fracture, intra-articular, acute, closed 2. Right superior inferior pubic rami fractures, acute, closed POSTOPERATIVE DIAGNOSIS: 1. Left elbow olecranon fracture, comminuted, intra-articular, acute, closed 2. Right superior inferior pubic rami fractures, acute, closed PROCEDURE: 1. Left elbow olecranon fracture ORIF with tension band technique 2. Closed treatment right superior and inferior pubic rami fractures 3. [id number] - intraoperative fluoroscopy up to 1 hour. SURGEON: Shaheen Olivares MD. HISTOLOGIC TECHNICIAN: Brennen BUCKNER - Of note, a skilled instruction assistant principal was critical for this case to aid in patient positioning, tissue retraction, limb manipulation/positioning, and closure. ANESTHESIA: General endotracheal anesthetic EBL: 2 mL IMPLANTS: Double loaded FiberTape + 0.062 in K-wire (X 2) TOURNIQUET: 75 minutes at 250 torr COMPLICATIONS: None evident INDICATIONS: The patient is a pleasant 68-year-old female who sustained a left olecranon fracture after fall from standing height on 01/05/2024. The presented [facility] where X-rays revealed a left olecranon fracture that was intra-articular and displaced. Given the dysfunction without triceps power, surgery was recommended. DESCRIPTION OF PROCEDURE: Following a thorough discussion of risks, benefits, and alternatives consent was obtained and the operative elbow was marked. The patient was brought to the operating room and placed prone on the operating table after induction of anesthesia. 1 g IV Ancef was administered within 1 hr of incision preoperatively. Proper time-out was performed identifying proper patient, site, procedure. The operative extremity was prepped and draped in the appropriate ChloraPrep after the patient was positioned supine with all bony prominences well padded. Following exsanguination of the operative extremity and tourniquet inflation, a longitudinal, posterior skin incision was made along the posterior border of the proximal ulna curving laterally around the olecranon tip, and again up a short distance on the distal triceps insertion. The hematoma was immediately encountered upon penetrating the subcutaneous layer. This was evacuated. Subperiosteal dissection was performed along the proximal ulna, allowing us to put a small unicortical 2 mm drill hole over the posterior proximal ulna for pointed tenaculum gripping. We turned our attention to the fracture site itself. Interposed hematoma and periosteum was debrided with a curette, elevator, and suction along with irrigation. At this point, the main fracture was reduced and held with a pointed tenaculum, but unfortunately because of the comminution, it was found to have split and was not felt that tenaculum was going to work. Thus, manual reduction was performed. 2 separate K-wires were then drilled from the proximal posterior elbow aiming more distal anterior in the ulna keeping wires in the subchondral plate. Following this, a fiber tape was passed through a drill hole in the proximal ulna that was approximately 3-4 cm distal to the fracture site. Thereafter, the tails were crossed and it was passed just deep to the triceps tendon and anterior to the K-wires with a free needle from medial to lateral being conscientious of the ulnar nerve. The tails were then passed through the self cinching mechanism and tension with the appropriate Arthrex tensioner. Excellent reapproximation the fracture was confirmed with fluoroscopic imaging. After time multiple half hitches overlying the self cinching loop, the tails were passed back through the bone tunnel to allow dunking of this small knot stack against the radial border of the ulna. Of note, the K-wires were bent and cut and tamped down to the proximal olecranon after ensuring that they FiberTape pad wrapped around it is more anterior portion creating a tension band mechanism. C-arm fluoroscopic imaging was utilized throughout the case to aid in fracture reduction assessment, K-wire placement, and confirm metallic implants to be outside the joint. The elbow was placed through range of motion and the fracture was found to be stable. Closure was then performed after thorough irrigation with normal saline, utilizing 0 Vicryl for the deep fascia reapproximation in a running locking fashion, 2-0 Vicryl for the subcutaneous, and 4-0 Monocryl for subcuticular closure. Dressings were applied, tourniquet deflated, and a posterior splint was applied. The patient was awoken from anesthesia and transferred to the PACU in stable condition. A skilled instruction assistant principal was critical for this case to aid in patient positioning, tissue retraction, limb manipulation/positioning, and closure. PLAN: 1. Nonweightbearing operative extremity. 2. Ice. 3. Elevate. 4. Oxycodone for pain p.r.n. 5. Follow up with PA visit in 1-2 weeks. Removal of splint, repeat clinical check. Elbow ROM as tolerated. No strengthening until 6-8 weeks post op
--- NOTE | 2024-01-10 13:50 | W.ANESCHARGE ---
Anesthesia Charges Start Date/Time Anesthesia Start Date: 01/10/24 Anesthesia Start Time: 11:24 Stop Date/Time Anesthesia Stop Date: 01/10/24 Anesthesia Stop Time: 13:44
[2024-01-10] MEDS: LACTATED RINGERS 1000 ML 1,000 ML 75 ML IV (14:31)
--- NOTE | 2024-01-10 15:10 | PC.NURSE ---
Pt is alert and oriented x3. Pt is pleasant and cooperative. Pt expressed nervousness prior to surgery. Pt was given PRN pain medication in the am before surgery. Pt had a BP of 171/103 prior to pain medication. Recheck: 138/75. Pt had a BG of 312 in the morning and insulin was administered. Pt remained NPO.?Pt left for surgery at 1045 and returned at 1415. Pt is resting and expressed verbally that she is not in pain. Pt currently remains vitally stable post op. LR is running at 75mL/hr.
--- NOTE | 2024-01-10 16:45 | PC.SOCIAL ---
Discharge planning- Contacted the following SNF's for potential placement for short-term rehab. Patient would like to go to [facility] in [place] as she has been there previously. Discussed patient's toxicology (Positive for Cocaine) and informed that it may be a barrier to placement at SNF's. Patient may have assistance at home. Patient is agreeable to send information to [facility] (SNF with substance abuse treatment and therapy for rehab). 1. [facility] [place]- Phone call to Dolly in admissions at [phone]. They will review referral. Faxed referral to [phone]. 2. [facility] [place]- Phone call to Melinda in admissions at [phone]. Discussed situation/needs. Melinda informs they will assess, but will likely be unable to offer a bed due to toxicology report. Secure e-mailed referral for review. 3. [facility]- Phone call to admissions at [phone]. Left a voicemail inquiring on bed availability. Social work will continue to follow up on discharge plans.
[2024-01-10] MEDS: ATORVASTATIN 10 MG TABLET 20 MG PO (22:31)
[2024-01-10] MEDS: SENNOSIDES 1 TAB TABLET 2 TAB PO (22:32)
--- NOTE | 2024-01-10 23:55 | PC.NURSE ---
Shift Note [id number]: Pt sleepy this evening but is easily wakened. VS WNL and LS with scattered rhonchi. Pt encouraged to use IS and TCDB. Left radial pulse intact. Didn't order a meal tray but did drink 100% of Ensure supplement & yaw crackers with butter. Rates pain 4/10, Tylenol given at HS.
[2024-01-11] VITALS (9 sets, daily range): BP systolic 137–162; BP diastolic 73–93; PULSE 75–80; RESP 14–20; TEMP 36.6–37.2; O2SAT 95–99
[2024-01-11] MEDS: LACTATED RINGERS 1000 ML 1,000 ML 75 ML IV (02:30)
[2024-01-11] MEDS: ACETAMINOPHEN 325 MG TABLET 650 MG PO ×2 (06:02→12:58)
[2024-01-11] MEDS: OMEPRAZOLE 20 MG CAPSULE DR PO (06:02)
--- NOTE | 2024-01-11 07:03 | PC.NURSE ---
Shift note: The pt was sleeping well without any acute distress. Denied left elbow and hip pain throughout the night; but she reported mild pain this AM- Tylenol was given. Dressing to the the left elbow is C/D/I. The pt has been coughing dry cough; IS is encouraged. Spo2 has been in the 90s in [place]. The pt was up to the bedside commode this AM, heavy 1-assist pivot . The pt appeared without any acute distress
[2024-01-11] MEDS: SENNOSIDES 1 TAB TABLET 2 TAB PO ×2 (08:56→21:03)
[2024-01-11] MEDS: METOPROLOL SUCCINATE (XL) 100 MG TAB 150 MG PO (08:56)
[2024-01-11] MEDS: levETIRAcetam 500 MG TABLET 750 MG PO ×2 (08:56→21:03)
[2024-01-11] MEDS: SERTRALINE 50 MG TABLET PO (08:56)
[2024-01-11] MEDS: CLOPIDOGREL 75 MG TABLET PO (08:57)
[2024-01-11] MEDS: lisinopriL 10 MG TABLET 5 MG PO (08:57)
[2024-01-11] MEDS: FOLIC ACID 1 MG TABLET PO (08:57)
[2024-01-11] MEDS: ASPIRIN 81 MG TABLET EC PO (08:57)
[2024-01-11] MEDS: OXYCODONE 5 MG TABLET PO ×3 (09:01→19:44)
[2024-01-11] MEDS: NITROFURANTOIN MONOHYD MACRO 100 MG CAPSULE PO (09:01)
[2024-01-11] MEDS: LACOSAMIDE 50 MG TABLET 100 MG PO ×2 (09:02→21:09)
[2024-01-11] MEDS: INSULIN ASPART 100 UNIT/ML SUBCUT ×4 (09:06→21:05)
--- NOTE | 2024-01-11 11:06 | P.IMPN_ITS ---
Progress Note: A&P Assessment and plan (1) Closed olecranon fracture: Problem details: - splinted in ED 01/05/24, s/p ORIF with Dr. Olivares of Orthopedic Surgery on 01/09 - holding aspirin and Plavix (completed 1 year uninterrupted Plavix on 01/05/2024 after RCA stent), will restart on 01/11 - Pain well controlled at this time Status: Acute (2) Pelvic fracture: Problem details: - s/p fall 01/04/24 - therapies ordered, will likely need TCU Status: Acute (3) Type 1 diabetes mellitus: Problem details: - last A1C 9.08 September 2023 - continue insulin home doses + sliding scale - 01/05 blood glucoses are 192-284, increased Levemir - 01/06 had low yesterday of which she was unaware. Decreased Levemir, continue to follow - 01/09: sugars in the 300 (was on D5NS preoperatively), will follow after surgery and make corrections if neede Status: Chronic (4) Coronary artery disease: Problem details: - had an RCA stent placed on 01/04/23; required 1 year uninterrupted Plavix at that time - Plavix has been continued during stay given PVD, R femoral endarterectomy 10/2023 - holding Plavix and ASA as of 01/07 for upcoming surgery Status: Acute (5) Nonischemic cardiomyopathy: Problem details: - with HFrEF. Cardiomyopathy noted on cardiac MRI 11/2023, LVEF 46% - follows with Cardiology as an outpatient - EKG reveals stable LBBB, no acute changes, telemetry stable - reviewed upcoming surgery with Cardiology on 01/07 by phone, no further workup needed prior to surgery Status: Chronic (6) Recurrent falls: Problem details: - hospitalized for falls in the past - therapies ordered, will likely need TCU given current injuries Status: Acute (7) Elevated liver enzymes: Problem details: - previously 2:1 AST:ALT, currently ALT is higher - patient denies ETOH use currently, no abdominal pain or other concerning symptoms - since admission, improving; recommend outpatient f/u Status: Chronic (8) Normocytic anemia: Problem details: - chronic per chart review, baseline 9-11 - no current concerns of bleeding, on PPI - hemoglobin stable at 9.8-10.2 during stay Status: Chronic (9) Hypertension: Problem details: - good control on home doses of Metoprolol and Lisinopril, will continue as she has age appropriate control Status: Chronic (10) Hyponatremia: Problem details: - on admission: mild, corrects to normal given hyperglycemia - asymptomatic, stable 132-133 Status: Acute (11) Seizure disorder: Problem details: - patient doesn't remember when she last had a seizure - continuing home doses of Keppra and Vimpat Status: Chronic (12) Alcohol abuse: Problem details: - possible; per chart review, noted to have + ETOH withdrawal in 2022 - patient denies use at this time, CIWAs negative from admission - nicotine replacement available prn Status: Acute Plan - per above, restarting Plavix and ASA 01/11 - possible home with partner and HH on 01/11 Subjective Date Seen: 01/11/24 Interval history: Bella was admitted to the hospital on 01/04 after a mechanical fall at home. She was found to have a L olecranon fracture, in addition to fractures of R superior and inferior pubic rami. She is POD #1 from a L elbow olecranon ORIF wiht Dr. Olivares of Orthopedic Surgery (01/10/24). Postoperative plan was TCU discharge; but patient was able to ambulate well with PT today and is likely going to be able to go home tomorrow with partner Jez. Bella is a Type 1 DM, who had an episode of hypoglycemia unawareness early in her stay; current BGs have been stable in the 200-300 range. Other comorbidities (PVD, seizure disorder, depression) have remained stable. Patient is sitting comfortably in bedside chair when I see her this morning, hav ing some pain but overall optimistic about potential d/c home tomorrow. Exam Narrative: Exam Narrative: GEN: Alert and oriented, nontoxic and sitting in bedside chair having breakfast HEENT: Some missing teeth, no evidence of acute dental infection, EOMIs bilaterally CV: RRR, No concerning murmurs R: LCTA bilaterally, air movement adequate Ext: LUE in cast/sling, normal sensation and movement of L fingers Neuro: No focal deficits, no resting tremor, gait not observed Psych: Appropriate Const: Vital Signs, click to edit/add: Vital Signs - 24 hr 01/10/24 11:10 01/10/24 13:40 01/10/24 13:45 Temperature 97.8 F Pulse Rate 92 104 H 101 H Respiratory Rate 16 16 16 Blood Pressure 137/46 L 143/94 H 122/91 H Blood Pressure [Ri ght Arm] Pulse Oximetry 100 90 97 Oxygen Delivery Me thod Nasal Cannula Nasal Cannula Nasal Cannula Oxygen Flow Rate 2 3 3 01/10/24 13:50 01/10/24 13:55 01/10/24 14:00 Temperature Pulse Rate 100 97 96 Respiratory Rate 16 14 14 Blood Pressure 107/91 H 137/100 H 127/72 Blood Pressure [Ri ght Arm] Pulse Oximetry 98 97 96 Oxygen Delivery Me thod Nasal Cannula Nasal Cannula Nasal Cannula Oxygen Flow Rate 3 3 3 01/10/24 14:05 01/10/24 14:10 01/10/24 14:22 Temperature 97.8 F Pulse Rate 95 93 Respiratory Rate 14 14 16 Blood Pressure 129/83 132/59 L Blood Pressure [Ri ght Arm] Pulse Oximetry 98 96 95 Oxygen Delivery Me thod Nasal Cannula Nasal Cannula Room Air Oxygen Flow Rate 3 3 01/10/24 14:22 01/10/24 14:30 01/10/24 14:45 Temperature 97.6 F 97.8 F 97.7 F Pulse Rate 90 89 80 Respiratory Rate 16 16 14 Blood Pressure 156/77 H 149/93 H 149/85 H Blood Pressure [Ri ght Arm] Pulse Oximetry 95 94 92 Oxygen Delivery Me thod Room Air Room Air Room Air Oxygen Flow Rate 01/10/24 15:00 01/10/24 15:15 01/10/24 15:30 Temperature 97.7 F 97.8 F 98.1 F Pulse Rate 87 88 88 Respiratory Rate 14 16 18 Blood Pressure 143/68 H 148/73 H 153/75 H Blood Pressure [Ri ght Arm] Pulse Oximetry 93 92 93 Oxygen Delivery Me thod Room Air Room Air Room Air Oxygen Flow Rate 01/10/24 16:00 01/10/24 16:30 01/10/24 17:00 Temperature 97.8 F 98.0 F 97.7 F Pulse Rate 83 85 88 Respiratory Rate 16 16 16 Blood Pressure 158/79 H 151/92 H 151/79 H Blood Pressure [Ri ght Arm] Pulse Oximetry 96 95 96 Oxygen Delivery Me thod Room Air Room Air Room Air Oxygen Flow Rate 01/10/24 18:00 01/10/24 19:00 01/10/24 20:00 Temperature 97.9 F 98.4 F 98.2 F Pulse Rate 99 93 104 H Respiratory Rate 16 14 14 Blood Pressure 139/93 H 126/70 155/71 H Blood Pressure [Ri ght Arm] Pulse Oximetry 97 92 99 Oxygen Delivery Me thod Room Air Room Air Room Air Oxygen Flow Rate 01/11/24 00:10 01/11/24 00:10 01/11/24 00:10 Temperature 99 F Pulse Rate Respiratory Rate 14 16 16 Blood Pressure Blood Pressure [Ri ght Arm] 162/84 H Pulse Oximetry 98 98 Oxygen Delivery Me thod Room Air Room Air Oxygen Flow Rate 01/11/24 02:46 01/11/24 06:00 01/11/24 08:45 Temperature 98.2 F Pulse Rate Respiratory Rate 16 16 20 Blood Pressure Blood Pressure [Ri ght Arm] 156/82 H Pulse Oximetry 97 97 Oxygen Delivery Me thod Room Air Room Air Oxygen Flow Rate 01/11/24 08:45 Temperature Pulse Rate Respiratory Rate 20 Blood Pressure Blood Pressure [Ri ght Arm] Pulse Oximetry 97 Oxygen Delivery Me thod Room Air Oxygen Flow Rate
--- NOTE | 2024-01-11 12:22 | PC.SOCIAL ---
Discharge planning- Received a phone call from Lisbeth at [facility] ([phone]), there is an opening and she will review a referral. Faxed referral to [phone]. Received a phone call back informing that patient's insurance is out of network, so they are declining patient for admission. Received a phone call from Dolly in admissions at [facility] in [place] informing that they are declining patient for admission due to patient's drug use and smoking. Provided update to MD, per MD, patient is doing well with therapies and will discharge home tomorrow with assistance from her significant other in the home. Social work will follow up as needed.
[2024-01-11] MEDS: SODIUM CHLORIDE 0.9 % (FLUSH) 10 ML SYRINGE 5 ML IVF ×2 (14:56→21:06)
--- NOTE | 2024-01-11 15:15 | PM.ORPN ---
Subjective Subjective Date Seen: 01/11/24 Principal diagnosis: POD1 left elbow olecranon ORIF with tension band technique Interval history: Patient reports doing okay. No acute events over night. Pain managed with scheduled and PRN medications, ice. DVT prophylaxis: SCDs and walking. Denies fevers, chills, aches, N/V, CP, SOB/BARNETT, or lightheadedness. Reports still no movement in her fingers or feeling (left arm.) For my pelvis standpoint, doing okay with mobility as long as assistance is available. Ortho Exam Narrative Exam Narrative: Left elbow: Patient does not appear to be in acute distress Assist of 2 nurses upon visit helping her from commode to the chair She is moving okay considering pelvic rami fractures. Long-arm splint on the left elbow in appropriate position Small twitches of her fingers on the left hand are noted, but no gross movement; no sensation throughout the hand. Brisk cap refill of her digits; splint is covering pulse. Const Vital Signs, click to edit/add: Vital Signs - 24 hr 01/10/24 15:30 01/10/24 16:00 01/10/24 16:30 Temperature 98.1 F 97.8 F 98.0 F Pulse Rate 88 83 85 Pulse Rate [Right Pulse Oximeter] Respiratory Rate 18 16 16 Blood Pressure 153/75 H 158/79 H 151/92 H Blood Pressure [Right Arm] Pulse Oximetry 93 96 95 Oxygen Delivery Method Room Air Room Air Room Air 01/10/24 17:00 01/10/24 18:00 01/10/24 19:00 Temperature 97.7 F 97.9 F 98.4 F Pulse Rate 88 99 93 Pulse Rate [Right Pulse Oximeter] Respiratory Rate 16 16 14 Blood Pressure 151/79 H 139/93 H 126/70 Blood Pressure [Right Arm] Pulse Oximetry 96 97 92 Oxygen Delivery Method Room Air Room Air Room Air 01/10/24 20:00 01/11/24 00:10 01/11/24 00:10 Temperature 98.2 F Pulse Rate 104 H Pulse Rate [Right Pulse Oximeter] Respiratory Rate 14 14 16 Blood Pressure 155/71 H Blood Pressure [Right Arm] Pulse Oximetry 99 98 Oxygen Delivery Method Room Air Room Air 01/11/24 00:10 01/11/24 02:46 01/11/24 06:00 Temperature 99 F 98.2 F Pulse Rate Pulse Rate [Right Pulse Oximeter] Respiratory Rate 16 16 16 Blood Pressure Blood Pressure [Right Arm] 162/84 H 156/82 H Pulse Oximetry 98 97 97 Oxygen Delivery Method Room Air Room Air Room Air 01/11/24 08:45 01/11/24 08:45 01/11/24 11:00 Temperature 98.3 F Pulse Rate Pulse Rate [Right Pulse Oximeter] 75 Respiratory Rate 20 20 20 Blood Pressure Blood Pressure [Right Arm] 145/91 H Pulse Oximetry 97 99 Oxygen Delivery Method Room Air Room Air Assessment and Plan Assessment and plan (1) Closed olecranon fracture: Problem details: - splinted in ED 01/05/24, s/p ORIF with Dr. Olivares of Orthopedic Surgery on 01/09 - holding aspirin and Plavix (completed 1 year uninterrupted Plavix on 01/05/2024 after RCA stent), will restart on 01/11 - Pain well controlled at this time Status: Acute (2) Pelvic fracture: Problem details: - s/p fall 01/04/24 - therapies ordered, will likely need TCU - weightbear as tolerated with walker/cane Status: Acute (3) Type 1 diabetes mellitus: Problem details: - last A1C 9.08 September 2023 - continue insulin home doses + sliding scale - 01/05 blood glucoses are 192-284, increased Levemir - 01/06 had low yesterday of which she was unaware. Decreased Levemir, continue to follow - 01/09: sugars in the 300 (was on D5NS preoperatively), will follow after surgery and make corrections if neede Status: Chronic (4) Coronary artery disease: Problem details: - had an RCA stent placed on 01/04/23; required 1 year uninterrupted Plavix at that time - Plavix has been continued during stay given PVD, R femoral endarterectomy 10/2023 - holding Plavix and ASA as of 01/07 for upcoming surgery Status: Acute (5) Nonischemic cardiomyopathy: Problem details: - with HFrEF. Cardiomyopathy noted on cardiac MRI 11/2023, LVEF 46% - follows with Cardiology as an outpatient - EKG reveals stable LBBB, no acute changes, telemetry stable - reviewed upcoming surgery with Cardiology on 01/07 by phone, no further workup needed prior to surgery Status: Chronic (6) Recurrent falls: Problem details: - hospitalized for falls in the past - therapies ordered, will likely need TCU given current injuries Status: Acute (7) Elevated liver enzymes: Problem details: - previously 2:1 AST:ALT, currently ALT is higher - patient denies ETOH use currently, no abdominal pain or other concerning symptoms - since admission, improving; recommend outpatient f/u Status: Chronic (8) Normocytic anemia: Problem details: - chronic per chart review, baseline 9-11 - no current concerns of bleeding, on PPI - hemoglobin stable at 9.8-10.2 during stay Status: Chronic (9) Hypertension: Problem details: - good control on home doses of Metoprolol and Lisinopril, will continue as she has age appropriate control Status: Chronic (10) Hyponatremia: Problem details: - on admission: mild, corrects to normal given hyperglycemia - asymptomatic, stable 132-133 Status: Acute (11) Seizure disorder: Problem details: - patient doesn't remember when she last had a seizure - continuing home doses of Keppra and Vimpat Status: Chronic (12) Alcohol abuse: Problem details: - possible; per chart review, noted to have + ETOH withdrawal in 2022 - patient denies use at this time, CIWAs negative from admission - nicotine replacement available prn Status: Acute Plan - PT/OT consult for education and assistance - education needed on proper use of walking assistive device such as walker - Social work consult for discharge planning - various SNF are not accepting patient. Patient will discharge to home with assistance of friend/significant other - Prescribed analgesics as needed - Anticipation is for discharge to home with friends/significant other 01/12/2024 if the patient remains medically stable, pain is controlled, and they are safe with mobilization.
--- NOTE | 2024-01-11 18:56 | PC.NURSE ---
(Shift 15-19) Pt alert and oriented. Pt had complaints of pain at a three; Pt did not want anything for pain during shift. Pt napped most of shift. Pt finished lunch late afternoon.?Pt's evening blood sugar 339; see EMAR for intervention.
[2024-01-11] MEDS: ATORVASTATIN 10 MG TABLET 20 MG PO (21:03)
[2024-01-12 02:30] VITALS: BP 170/95; PULSE 74; RESP 16; TEMP 36.6; O2SAT 97
[2024-01-12] MEDS: OXYCODONE 5 MG TABLET PO ×2 (02:34→08:47)
[2024-01-12] MEDS: OMEPRAZOLE 20 MG CAPSULE DR PO (06:55)
[2024-01-12 08:00] VITALS: BP 153/84; PULSE 91; RESP 18; TEMP 36.8; O2SAT 97
[2024-01-12] MEDS: ASPIRIN 81 MG TABLET EC PO (08:45)
[2024-01-12] MEDS: CLOPIDOGREL 75 MG TABLET PO (08:45)
[2024-01-12] MEDS: FOLIC ACID 1 MG TABLET PO (08:45)
[2024-01-12] MEDS: levETIRAcetam 500 MG TABLET 750 MG PO (08:46)
[2024-01-12] MEDS: METOPROLOL SUCCINATE (XL) 100 MG TAB 150 MG PO (08:47)
[2024-01-12] MEDS: lisinopriL 10 MG TABLET 5 MG PO (08:47)
[2024-01-12] MEDS: SERTRALINE 50 MG TABLET PO (08:47)
[2024-01-12] MEDS: SENNOSIDES 1 TAB TABLET 2 TAB PO (08:47)
[2024-01-12] MEDS: LACOSAMIDE 50 MG TABLET 100 MG PO (08:56)
[2024-01-12] MEDS: ACETAMINOPHEN 325 MG TABLET 650 MG PO (08:56)
--- NOTE | 2024-01-12 10:07 | PM.ORPN ---
Subjective Subjective Date Seen: 01/12/24 Principal diagnosis: POD2 left elbow olecranon ORIF with tension band technique Interval history: Patient reports doing okay. No acute events over night. Pain is slightly improved. Pain managed with scheduled and PRN medications, ice. DVT prophylaxis: SCDs, walking. Denies fevers, chills, aches, N/V, CP, SOB/BARNETT, or lightheadedness. Reports that the nerve block is worn off and she has movement and sensation of her fingers. Ortho Exam Narrative Exam Narrative: Left upper extremity: Splint in good position She demonstrates good motion of her fingers with intact sensation today as well as good shoulder abduction. 2+ radial pulse, pink warm digits with brisk cap refill; intact dermatomes and myotomes distally including the radial, ulnar, and median nerve distributions Lower extremities: 2+ DP/PT pulses, pink warm digits with brisk cap refill; intact dermatomes and myotomes distally including the common peroneal, tibial, saphenous, and sural nerve distributions Const Vital Signs, click to edit/add: Vital Signs - 24 hr 01/11/24 11:00 01/11/24 15:23 01/11/24 15:29 Temperature 98.3 F 98.1 F Pulse Rate [Right Pulse Oximeter] 75 76 Respiratory Rate 20 16 16 Blood Pressure [Right Arm] 145/91 H 137/93 H Pulse Oximetry 99 98 98 Oxygen Delivery Method Room Air Room Air Room Air Oxygen Flow Rate 0 01/11/24 19:00 01/11/24 22:26 01/11/24 22:26 Temperature 98 F Pulse Rate [Right Pulse Oximeter] 80 79 Respiratory Rate 16 16 16 Blood Pressure [Right Arm] 151/73 H Pulse Oximetry 97 95 Oxygen Delivery Method Room Air Room Air Oxygen Flow Rate 01/11/24 22:26 01/12/24 02:30 01/12/24 08:00 Temperature 98.3 F 97.9 F Pulse Rate [Right Pulse Oximeter] 79 74 91 Respiratory Rate 16 16 18 Blood Pressure [Right Arm] 152/89 H 170/95 H Pulse Oximetry 95 97 Oxygen Delivery Method Room Air Room Air Oxygen Flow Rate 01/12/24 08:00 01/12/24 08:00 Temperature 98.2 F Pulse Rate [Right Pulse Oximeter] 91 Respiratory Rate 18 18 Blood Pressure [Right Arm] 153/84 H Pulse Oximetry 97 97 Oxygen Delivery Method Room Air Room Air Oxygen Flow Rate Assessment and Plan Assessment and plan (1) Closed olecranon fracture: Problem details: - splinted in ED 01/05/24, s/p ORIF with Dr. Olivares of Orthopedic Surgery on 01/09 - holding aspirin and Plavix (completed 1 year uninterrupted Plavix on 01/05/2024 after RCA stent), will restart on 01/11 - Pain well controlled at this time Status: Acute (2) Pelvic fracture: Problem details: - s/p fall 01/04/24 - therapies ordered, will likely need TCU - weightbear as tolerated with walker/cane Status: Acute (3) Type 1 diabetes mellitus: Problem details: - last A1C 9.08 September 2023 - continue insulin home doses + sliding scale - 01/05 blood glucoses are 192-284, increased Levemir - 01/06 had low yesterday of which she was unaware. Decreased Levemir, continue to follow - 01/09: sugars in the 300 (was on D5NS preoperatively), will follow after surgery and make corrections if neede Status: Chronic (4) Coronary artery disease: Problem details: - had an RCA stent placed on 01/04/23; required 1 year uninterrupted Plavix at that time - Plavix has been continued during stay given PVD, R femoral endarterectomy 10/2023 - holding Plavix and ASA as of 01/07 for upcoming surgery Status: Acute (5) Nonischemic cardiomyopathy: Problem details: - with HFrEF. Cardiomyopathy noted on cardiac MRI 11/2023, LVEF 46% - follows with Cardiology as an outpatient - EKG reveals stable LBBB, no acute changes, telemetry stable - reviewed upcoming surgery with Cardiology on 01/07 by phone, no further workup needed prior to surgery Status: Chronic (6) Recurrent falls: Problem details: - hospitalized for falls in the past - therapies ordered, will likely need TCU given current injuries Status: Acute (7) Elevated liver enzymes: Problem details: - previously 2:1 AST:ALT, currently ALT is higher - patient denies ETOH use currently, no abdominal pain or other concerning symptoms - since admission, improving; recommend outpatient f/u Status: Chronic (8) Normocytic anemia: Problem details: - chronic per chart review, baseline 9-11 - no current concerns of bleeding, on PPI - hemoglobin stable at 9.8-10.2 during stay Status: Chronic (9) Hypertension: Problem details: - good control on home doses of Metoprolol and Lisinopril, will continue as she has age appropriate control Status: Chronic (10) Hyponatremia: Problem details: - on admission: mild, corrects to normal given hyperglycemia - asymptomatic, stable 132-133 Status: Acute (11) Seizure disorder: Problem details: - patient doesn't remember when she last had a seizure - continuing home doses of Keppra and Vimpat Status: Chronic (12) Alcohol abuse: Problem details: - possible; per chart review, noted to have + ETOH withdrawal in 2022 - patient denies use at this time, CIWAs negative from admission - nicotine replacement available prn Status: Acute Plan - PT/OT consult for education and assistance. - Social work consult for discharge planning - Prescribed analgesics as needed - DVT prophylaxis: SCDs and walking - Anticipation is for discharge to home with significant other/friend today, 01/12/2024 if the patient remains medically stable, pain is controlled, and they are safe with mobilization.
--- NOTE | 2024-01-12 10:37 | PM.DS1 ---
DS: Providers Provider Date Seen: 01/12/24 Date of admission: 01/08/24 11:56 Primary care physician: Parisa Byrd PA-C Admitting Clinician: Anya Carreon MD Consults: PT, OT, SW Attending Physician on discharge: Anya Carreon MD Date of Discharge: 01/12/24 DS: Diagnosis Discharge Diagnosis (1) Closed olecranon fracture: Status: Acute Problem details: - splinted in ED 01/05/24, s/p ORIF with Dr. Olivares of Orthopedic Surgery on 01/09 - holding aspirin and Plavix (completed 1 year uninterrupted Plavix on 01/05/2024 after RCA stent), will restart on 01/11 - Pain controlled on oral medications (2) Pelvic fracture: Status: Acute Problem details: - s/p fall 01/04/24 - therapies ordered, home with partner and Home Health on 01/11 - weight bear as tolerated with hemiwalker/cane (3) Type 1 diabetes mellitus: Status: Chronic Problem details: - last A1C 9.08 September 2023 - continue insulin home doses + sliding scale - one episode of hypoglycemia with unawareness, Levemir decreased and will continue on this dose upon discharge (4) Coronary artery disease: Status: Acute Problem details: - had an RCA stent placed on 01/04/23; required 1 year uninterrupted Plavix at that time - Plavix has been continued during stay given PVD, R femoral endarterectomy 10/2023 - held Plavix and ASA preoperatively, restarted postoperatively, stable upon discharge (5) Nonischemic cardiomyopathy: Status: Chronic Problem details: - with HFrEF. Cardiomyopathy noted on cardiac MRI 11/2023, LVEF 46% - follows with Cardiology as an outpatient - EKG reveals stable LBBB, no acute changes, telemetry stable - reviewed with Cardiology on 01/07 by phone, no further workup needed prior to surgery (6) Recurrent falls: Status: Acute Problem details: - hospitalized for falls in the past - therapies ordered, will likely need TCU given current injuries (7) Elevated liver enzymes: Status: Chronic Problem details: - previously 2:1 AST:ALT, currently ALT is higher - patient denies ETOH use currently, no abdominal pain or other concerning symptoms - since admission, improving; recommend outpatient f/u for liver disease (8) Normocytic anemia: Status: Chronic Problem details: - chronic per chart review, baseline 9-11 - no current concerns of bleeding, on PPI - hemoglobin stable at 9.8-10.2 during stay (9) Hypertension: Status: Chronic Problem details: - good control on home doses of Metoprolol and Lisinopril, continued during stay as she has age appropriate control (10) Hyponatremia: Status: Acute Problem details: - on admission: mild, corrects to normal given hyperglycemia - asymptomatic, stable 132-133 (11) Seizure disorder: Status: Chronic Problem details: - patient doesn't remember when she last had a seizure - continuing home doses of Keppra and Vimpat (12) Alcohol abuse: Status: Acute Problem details: - possible; per chart review, noted to have + ETOH withdrawal in 2022 - patient denies use at this time, CIWAs negative from admission - nicotine replacement available prn DS: Summary Hospital Course Hospital Course: Bella is a 68 yo female who was admitted to the hospital on 01/04 after a mechanical fall at home. In the ER, she was found to have a L olecranon fracture, in addition to fractures of R superior and inferior pubic rami. She had a successful L elbow olecranon ORIF with Dr. Olivares of Orthopedic Surgery (01/10/24). Initially planed TCU discharge, but difficultly to place given + drug screen on admission. She worked with therapies daily; ultimately, was able to ambulate with a hemiwalker and was able to discharge home with partner Jez and Home Health on 01/11. Comorbidities: - Type 1 DM, one episode of hypoglycemia unawareness early in her stay. Levemir decreased and BG then stable0 - seizure d/o, PVD, depression; all stable/quiescent, no changes made to home medications. Status at Discharge Functional status at discharge: uses cane/walker Overall status at discharge: patient is progressing back to baseline Time Spent with Patient Time attestation: Total time spent providing and/or coordinating discharge services: Time spent: Greater than 30 minutes Specific discharge activities: Medication reconciliation, updates to patient/partner, multidisciplinary team discussion Exam Narrative: Exam Narrative: GEN: Alert and oriented, sitting comfortably in bed HEENT: Poor dentition but no evidence of acute infection, EOMIs bilaterally, no scleral icterus CV: RRR, No concerning murmurs R: LCTA bilaterally without concerning wheezing, air movement adequate Ext: Left upper extremity has a cast and sling, normal sensation and capillary refill of left fingers, trace bilateral lower extremity edema Skin: Scattered bruising on extremities, no other concerning findings Neuro: No focal deficits, no resting tremor, gait not observed Psych: Appropriate Const: Vital Signs, click to edit/add: Vital Signs - 24 hr 01/11/24 11:00 01/11/24 15:23 01/11/24 15:29 Temperature 98.3 F 98.1 F Pulse Rate [Right Pulse Oximeter] 75 76 Respiratory Rate 20 16 16 Blood Pressure [Ri ght Arm] 145/91 H 137/93 H Pulse Oximetry 99 98 98 Oxygen Delivery Me thod Room Air Room Air Room Air Oxygen Flow Rate 0 01/11/24 19:00 01/11/24 22:26 01/11/24 22:26 Temperature 98 F Pulse Rate [Right Pulse Oximeter] 80 79 Respiratory Rate 16 16 16 Blood Pressure [Ri ght Arm] 151/73 H Pulse Oximetry 97 95 Oxygen Delivery Me thod Room Air Room Air Oxygen Flow Rate 01/11/24 22:26 01/12/24 02:30 01/12/24 08:00 Temperature 98.3 F 97.9 F Pulse Rate [Right Pulse Oximeter] 79 74 91 Respiratory Rate 16 16 18 Blood Pressure [Ri ght Arm] 152/89 H 170/95 H Pulse Oximetry 95 97 Oxygen Delivery Me thod Room Air Room Air Oxygen Flow Rate 01/12/24 08:00 01/12/24 08:00 Temperature 98.2 F Pulse Rate [Right Pulse Oximeter] 91 Respiratory Rate 18 18 Blood Pressure [Ri ght Arm] 153/84 H Pulse Oximetry 97 97 Oxygen Delivery Me thod Room Air Room Air Oxygen Flow Rate DS: Data Data Completed and Pending Completed studies during hospitalization: Procedures Detoxification Services for Substance Abuse Treatment (04/21/23) Introduction of Other Gas into Respiratory Tract, Via Natural or Artificial Opening (04/21/23) Discharge Plan Discharge Disposition: Home, Self-Care Date of Admission: 01/08/24 11:56 Attending Provider on Discharge: Anya Carreon Primary Care Provider: Parisa Byrd Condition: Stable Anticipated Discharge Date/Time: 01/12/24 08:26 Discharge Medications: New sennosides-docusate sodium [Senna-S] 8.6-50 mg tablet 1 - 4 tab-cap PO BID PRN (Reason: constipation) Qty: 60 0RF Rx Instructions: Hold medication if experiencing loose stools. acetaminophen 500 mg capsule 500 - 1,000 mg PO Q6H MDD 4000mg PRNQty: 100 0RF oxycodone 5 mg tablet 2.5 - 5 mg PO Q4-6H MDD 6 PRN (Reason: pain) Qty: 20 0RF Rx Instructions: Take as needed for postop pain: 2.5mg mild pain, 5mg moderate-severe pain; wean as tolerated. Levemir FlexPen 100 unit/mL (3 mL) Insulin Pen 11 unit subcut BID Qty: 15 0RF Continued gabapentin 600 mg tablet 900 mg PO HS Patient Comments: Novolin R Regular U100 Insulin 100 unit/mL solution 7 - 11 unit subcut TID lacosamide 100 mg tablet 100 mg PO BID levetiracetam 750 mg tablet 750 mg PO BID lisinopril 10 mg tablet 5 mg PO DAILY sertraline 50 mg tablet 50 mg PO DAILY clopidogrel 75 mg tablet 75 mg PO DAILY aspirin [Adult Aspirin Regimen] 81 mg tablet,delayed release (DR/EC) 81 mg PO DAILY atorvastatin 20 mg tablet 20 mg PO HS gabapentin 600 mg tablet 600 mg PO DAILY metoprolol succinate 100 mg tablet extended release 24 hr 150 mg PO DAILY multivitamin [Daily Multi-Vitamin] Tablet 1 tab PO DAILY nitroglycerin 0.4 mg tablet, sublingual 0.4 mg sublingual Q5M PRN Spiriva Respimat 2.5 mcg/actuation mist 2 inh inhalation DAILY Discontinued insulin glargine [Lantus U-100 Insulin] 100 unit/mL solution 19 unit SUBCUT HS Discharge Orders: Discharge Order (Routine); Ordered 01/12/24 Ordered By: Stanford Gomez Patient Education: Acetaminophen (By mouth), Oxycodone, Rapid Release (By mouth), Senna (By mouth), Pelvic Fracture (DC), ORIF of an Elbow Fracture (DC) Additional Instructions: Your blood sugar was a little lower when you first got here, so we've decreased your Levemir to 11U twice/day (if you're noting higher blood sugars, you may need to increase this again). Tylenol around the clock for pain (650mg every 6 hours), Oxycodone every 4 hours for severe pain. No Ibuprofen or Aleve. See Parisa as scheduled to check in regarding your diabetes and fractures. Activity Level: Activity as Tolerated and Weight Bearing as Tolerated Activity Detail: Regarding pelvic rami fractures, weight-bearing as tolerated with walker/cane for assistance. Repeat x-rays at 6 weeks from injury. Regarding left elbow fracture and fixation, keep splint in place. No weight-bearing on the splinter arm. No lifting beyond coffee cup in weight with left hand. Free hand/digit motion as tolerated. Free shoulder motion as tolerated. Elevate above heart as needed. Follow up with Stanford ANGULO in 1-2 weeks. We will remove the splint at that visit and perform clinical recheck. At that time, will allow for elbow ROM as tolerated. No strengthening until 6-8 weeks post op. Repeat left elbow x-rays at 6 weeks postop. Discharge Diet: Diabetic Follow Up Appointments: Parisa Byrd PA-C [Primary Care Provider] - 01/18/24 10:30 am ([facility] for Hospital follow up. ) Forms: [email or web address] Info Instructions
[2024-01-12 12:00] VITALS: BP 146/70; PULSE 82; RESP 18; O2SAT 100
--- NOTE | 2024-01-12 12:43 | PC.NURSE ---
Nursing Care Hours: [id number] Pt this shift drowsy and oriented. Intermittent confusion see note in behavior assessment. Wound on LL leg covered with mepilex. CMS and cap refill WNL on left hand and R foot. VSS. Blood sugar hypo this morning at 69, orange juice and cookie given and rechecked BS at 109. Pain controlled per eMAR. Ax1 with quad walker and gait belt. pt moving slowly and taking small shuffle like steps. Needing encouragement to put weight into quad walker on R side. Incontinent of urine x1, void in BSC x1. Dishcarge instructions went over wit pt and SO. No questions per pt. IV removed. Wheeled out to vehicle in stable condition.
--- NOTE | 2024-01-12 15:08 | PC.SOCIAL ---
Discharge planning- Per MD, patient will discharge home with significant other. Patient will need Nursing, PT, OT, and SALOON KEEPER. Patient has Medicare advantage- [facility] insurance which limits the options for home care. Contacted the following home care agencies. 1. [facility]- Phone call to intake at [phone], left voicemail. Faxed home care referral to [phone]. 2. [facility]- Phone call to intake at [phone]. They service the [place] area, however, are limited on providers, so referral can be sent for clinical review. Fax is not working at this time. Secure e-mailed referral to [email or web address]. Social work will continue to follow up as needed.
== END 2024-01-12 11:58 | disposition home or self-care (01) | DRG 511 ==
LOC: ED 20:55 → MEDSURG 21:20
PROVIDERS: Family Medicine; Orthopaedic Surgery Sports Medicine; Admitting Provider Family Medicine; Emergency Provider Family Medicine; PCP Physician Assistant; Visit Provider Family Medicine
PROC: 0PSL06Z Reposition Left Ulna with Intramedullary Internal Fixation Device, Open Approach (ICD-10-PCS; principal; 2024-01-10 12:00)
DX: S52.032A Displaced fracture of olecranon process with intraarticular extension of left ulna, initial encounter for closed fracture (principal); E87.1 Hypo-osmolality and hyponatremia; I42.8 Other cardiomyopathies; S32.591A Other specified fracture of right pubis, initial encounter for closed fracture; G89.18 Other acute postprocedural pain; E10.649 Type 1 diabetes mellitus with hypoglycemia without coma; W01.0XXA Fall on same level from slipping, tripping and stumbling without subsequent striking against object, initial encounter; Z91.81 History of falling; Y93.01 Activity, walking, marching and hiking; Y92.019 Unspecified place in single-family (private) house as the place of occurrence of the external cause; F10.10 Alcohol abuse, uncomplicated; F14.90 Cocaine use, unspecified, uncomplicated; Z71.51 Drug abuse counseling and surveillance of drug abuser; Y90.0 Blood alcohol level of less than 20 mg/100 ml; F11.90 Opioid use, unspecified, uncomplicated; Z72.0 Tobacco use; R74.01 Elevation of levels of liver transaminase levels; D64.9 Anemia, unspecified; I10 Essential (primary) hypertension; Z79.4 Long term (current) use of insulin; G40.909 Epilepsy, unspecified, not intractable, without status epilepticus; I73.9 Peripheral vascular disease, unspecified; I25.10 Atherosclerotic heart disease of native coronary artery without angina pectoris
CPT/HCPCS: 01740; 36415; 64415; 70450; 71101; 72125; 72170; 73070; 73552; 76000; 76942; 80048; 80053; 80076; 80306; 81001; 82077; 82962; 82977; 83605; 83735; 85025; 87086; 87186; 93005; 97116; 97162; 97165; 97530; 97535; 99284; 99285; A4580; A9270; C1713; G0378; J0330; J0690; J1100; J2250; J2371; J2704; J2795; J3010; J3480; J7030; J7042; J7120

== ENCOUNTER 2024-02-08 14:32 | Outpatient (CLI) | payer MEDICARE, SELFPAY ==
--- OUTSIDE RECORDS SUMMARY | 2024-02-08 14:34 | XMS_ITS | Patient Health Record ---
Author Organization [facility] Mariah lyon [place] Address [address] [place] [address] Care Team Providers Care Brace End [place] Former Name Role Phone David Sparks MD Primary Care Provider Yasmeen Ferrer Unavailable [phone] Allergies Allergen (clinical drug ingredient) Drug/Non Drug Allergy documented on EMR Reaction Allergy Type Onset Date Status aspirin Aspirin Asa/extra Strength Antacid (aspirin, buffered) Drug Allergy Active phenytoin Dilantin gingival hyperplasia Drug Allergy Active hydrochlorothiazide Hydrochlorothiazide low sodium D rug Allergy Active carbamazepine Tegretol Unknown Drug Allergy Active Reason For Referral No Information Medications Medication SIG (Take, Route, Frequency, Duration) Notes [...] NOT LIE DOWN FOR 1 HOUR Active Social History Tobacco Use: Social History Observation Description Date Details (start date - stop date) Current Smoker NA - NA Tobacco Use Question Answer Notes Are you a: current smoker Problems Problem Type SNOMED Code ICD Code Onset Dates Problem Status W/U Status Risk Notes Problem Epilepsy (38625441) Epilepsy, unspecified, not intractable, without status epilepticus (G40.909) Active confirmed Problem Localization- related epilepsy (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, not intractable, without status epilepticus (G40.009) Active confirmed Plan Of Treatment No Information Insurance Providers Payer Name Payer Address Payer Phone Subscriber Number Group Number Insured Name Patient Relationship to Insured Coverage Start Date Coverage End Date [facility] [id number] [address] [address] [place], [place] [id number] Bella Jones Self - patient is the insured Medical (General) History Medical History History ICD Code Essential hypertension Osteoporosis Tobacco use disorder Type I diabetes mellitus Contracture of palmar fascia Coronary atherosclerosis of unspecified type of vessel, [place] or graft Depressive disorder Hyposmolality and/or hyponatremia Pure hypercholesterolemia Reflux esophagitis Surgical History Surgery Date(Month/Year) Appendectomy Cholecystectomy Tubal ligation Spine surgery Trigger finger release Conization cervix Hospitalization History Reason Date(Month/Year) Seizure related hospitalizations: [facility], 02/03/2019 - 02/06/2019
--- OUTSIDE RECORDS SUMMARY | 2024-02-08 14:34 | XMS_ITS | Encounter Summary ---
Author Organization [facility] Address [address] [place] [address] Care Team Providers Care Cashier Credit Name Role Phone Parisa Byrd PA-C Primary Care Provider Kamini contreras Encounter Details Date Type Department Care Team (Late st Contact Info) Description 01/26/2024 Documentation Only [facility] [address] [place] [address] No, Pcp Social History Tobacco Use Types Packs/Day Years Used Date Smoking Tobacco: Never Assessed Sex and Gender Information Value Date Recorded Sex Assigned at Female 01/26/2024 8:36 AM EDT Gender Identity Female 01/26/2024 8:36 AM EDT Sexual Orientation Not on file documented as of this encounter Plan of Treatment Not on file documented as of this encounter Visit Diagnoses Not on filedocumented in this encounter Care Teams Cashier Credit Relationship Specialty Start Date End Date Parisa Byrd [facility] [address] PCP - General Physician Unit Technician 01/26/24 documented as of this encounter
--- OUTSIDE RECORDS SUMMARY | 2024-02-08 14:34 | XMS_ITS | Encounter Summary ---
Author Organization [facility] Address [address] [place] [address] Care Team Providers Care Animal Sitter Name Role Phone Parisa Byrd PA-C Primary Care Provider Kamini contreras Encounter Details Date Type Department Care Team (Late st Contact Info) Description 01/26/2024 Documentation Only [facility] [place] [address] [place] [address] No, Pcp Social History Tobacco [...] on filedocumented in this encounter Care Teams Animal Sitter Relationship Specialty Start Date End Date Parisa Byrd PA-C [facility] [address] PCP - General Physician Mobile Heavy Equipment Mechanic 01/26/24 documented as of this encounter
--- OUTSIDE RECORDS SUMMARY | 2024-02-08 14:34 | XMS_ITS | Clinical Summary ---
Author Organization [facility] Address [address] [address] Phone Care Team Providers Care Mall Manager Name Role Phone Parisa Byrd PA-C Primary Care Provider Kamini contreras Encounters Date Type Department Care Team Description 01/29/2024 Office Communication [facility] [address] [address] Parisa Byrd PA-C 01/26/2024 Documentation Only [facility] [address] [address] No, Pcp 01/26/2024 Documentation Only [facility] [address] [place] [phone] No, Pcp from Last 3 Months Social History Tobacco Use Types Packs/Day Years Used Date Smoking Tobacco: Never Assessed Sex and Gender Information Value Date Recorded Sex Assigned at Female 01/26/2024 8:36 AM EDT Gender Identity Female 01/26/2024 8:36 AM EDT Sexual Orientation Not on file Plan of Treatment Health Maintenance Due Date Last Done Comments Breast Cancer Screening 1955 Colorectal Cancer Screening: Annual FOBT 2005 Colorectal Cancer Screening: Colonoscopy 2005 Colorectal Cancer Screening: Sigmoidoscopy 2005 Pneumococcal Vaccine: 65+ Years (3 of 3 - PPSV23 or PCV20) 01/23/2023 01/23/2018, 03/05/1996 Diabetes: Hemoglobin A1C 01/26/2024 Diabetes: Ophthalmology Exam 01/26/2024 Diabetes: Pedal Pulse Checked 01/26/2024 Diabetes: Sensory Foot Exam 01/26/2024 Diabetes: Visual Foot Exam 01/26/2024 Influenza Vaccine (#1) 2024 3, 04/07/2022, 03/23/2020, Additional history exists Hepatitis B Vaccine Aged Out No longe r eligible based on patient's age to complete this topic Care Teams Mall Manager Relationship Specialty Start Date End Date Parisa Byrd PA-C [address] [place] [address] PCP - General Physician Aircraft Line Assembler 01/26/24
--- OUTSIDE RECORDS SUMMARY | 2024-02-08 14:34 | XMS_ITS | Encounter Summary ---
Author Organization [facility] [place] Address [address] [place] [address] Care Team Providers Care Rawhide Trimmer Name Role Phone Parisa Byrd PA-C Primary Care Provider Kamini contreras Encounter Details Date Type Department Care Team (Late st Contact Info) Description 01/29/2024 Office Communication [facility] [address] [place] [address] Parisa Byrd PA-C [address] [place] [id number] Social History Tobacco Use Types Packs/Day Years Used Date Smoking Tobacco: Never Assessed Sex and Gender Information Value Date Recorded Sex Assigned at Female 01/26/2024 8:36 AM EDT Gender Identity Female 01/26/2024 8:36 AM EDT Sexual Orientation Not on file documented as of this encounter Miscellaneous Notes * Telephone Encounter - Olive Parmar - 01/29/2024 2:11 PM CDT Left message for the patient in regards to scheduling a New Patient consultation per the referral received from Parisa Byrd. documented in this encounter Plan of Treatment Not on file documented as of this encounter Visit Diagnoses Not on filedocumented in this encounter Care Teams Rawhide Trimmer Relationship Specialty Start Date End Date Parisa Byrd PA-C [address] [place] [address] PCP - General Physician Director Of [facility] 01/26/24 documented as of this encounter
--- OUTSIDE RECORDS SUMMARY | 2024-02-08 14:34 | XMS_ITS | Clinical Summary ---
Author Organization [facility] Address [place], [place] [address] Care Team Providers Care Electrical Experimental Mechanic Name Role Phone [facility] Mauri Bazzi Unavailable Raegan Dumont Unavailable [phone] Parisa Byrd Primary Care Provider [phone] Allergies Active Allergy Reactions Criticality Noted Date [...] with a meal. 0 05/01/20 23 Active LORazepam (ATIVAN) 0.5 mg tabIndications:Anx [...] daily. 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 Remove the 2 covers on the pen needle before administering medication dose. 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 09/15/2022 09/23/2023 Protein-calorie malnutrition 08/03/2021 09/23/2023 Osteomyelitis of great toe of right foot 08/03/2021 09/23/2023 Depression, recurrent 08/03/20212023 DIABETES 05/24/2002 09/23/2023 Encounters Date Type Department Care Team Description 02/07/[facility] [address] [address] Eufemia Shankar, PT CARE COORDINATION 02/06/2024 3:30 PM CDT Home Care Visit [address] [address] Cindy Reed LPN KNOWLEDGE MANAGEMENT CONSULTANT - HOME VISIT 02/06/2024 11:00 AM CDT [facility] [address] [address] Isidoro Thomas, OT OT - HOME VISIT 02/06/2024 [facility] [address] [place] [address] Linsey Andrew MD Refill Request (Atorvastatin) 02/05/2024 Home Care Visit [address] [address] Nabila Walters PRESSURE WASHER - MISSED VISIT 02/03/2024 12:30 PM CDT Home Care Visit [address] [address] Giorgio Mancini, RN SN - HOME VISIT 02/01/2024 10:30 AM CDT Home Care Visit [address] [address] Pamela Waltersdia PRESSURE WASHER - HOME VISIT 01/31/2024 1:00 PM CDT Home Care Visit [address] [address] Parisa Arzola OT OT - INITIAL ASSESSMENT 01/30/2024 Home Care Visit [address] [address] Benjamin Casillas, OT CARE COORDINATION 01/29/2024 Home Care Visit [address] [address] WaltersPamelaNabila PRESSURE WASHER - MISSED VISIT 01/29/2024 Travel 01/29/2024 Refill [facility] [address] [place] [address] Parisa Byrd PA Refill Request (B-D kg 2nd gen pen ) 01/28/2024 11:30 AM CDT Home Care Visit [address] [address] Giorgio Mancini RN SN - OASIS START OF CARE 01/28/2024 Plan of Care Documentation [address] [address] 01/25/2024 Telephone [facility] [address] [place] [address] Parisa Byrd PA Questions (returning a call ? ) 01/25/2024 Patient Outreach [facility] [address] [place] [address] Jacki Hernandez RN Focused Care Management 01/25/2024 Telephone [facility] [address] [place] [address] Parisa Byrd PA Results 01/25/2024 Telephone [facility] [address] [place] [address] Parisa Byrd PA Home Care 01/23/2024 1:30 PM CDT Office Visit [facility] [address] [place] [address] Parisa Byrd PA Medicare ANNUAL (subsequent) Visit; Hospital F/U 01/23/2024 Travel 01/19/[address] [address] Parisa Byrd PA Refill Request (Lantus U-100 Insulin, Lisinopril, Sertraline) 01/19/[address] [address] Parisa Byrd PA Refill Request (Insulin Syringe-needle U-100, Gabapentin) 01/18/2024 Refill [facility] [address] [place] [address] David Sparks MD Refill Request (Insulin Syringe-needle U-100) 01/17/2024 Nurse Triage [facility] [address] [place] [address] Parisa Byrd PA Refill Request 01/16/[address] [address] Parisa Byrd PA Refill Request ( oxyCODONE (ROXICODONE) 5 mg immediate release tablet ) 01/10/2024 Orders Only [facility] Scanner 1 scan: (1-Ord) [facility], XR ELBOW LT 2V, 01/10/2024 01/05/2024 Orders Only [facility] Scanner 1 scan: (1-Ord) [facility], XR PELVIS 1-2V, 01/05/2024 01/05/2024 Orders Only [facility] Scanner 1 scan: (1-Ord) [facility], CT CERVICAL SPINE W/O CONTRAST, 01/05/2024 01/05/2024 Orders Only [facility] Scanner 1 scan: (1-Ord) [facility], FEMER RT, 01/05/2024 01/05/2024 Orders Only [facility] Scanner 1 scan: (1-Ord) [facility], CHEST,ONE VIEW andLT RIBS,3 VIEWS, 01/05/2024 01/05/2024 Orders Only [facility] Scanner 1 scan: (1-Ord) [facility], CT HEAD W/O CONTRAST, 01/05/2024 12/31/2023 Refill [facility] [address] [place] [address] Parisa Byrd PA Refill Request (Sertraline) 12/22/2023 Refill [facility] [address] [facility] [address] [place] [phone] Linsey Andrew MD Refill Request (Atorvastatin) 12/05/2023 1:45 PM CDT Ancillary Procedure [facility] [address] [place] [address] 12/05/2023 12:50 PM CDT Office Visit [facility] [address] [place] [address] Parisa Byrd PA Follow Up (Wound on left leg) 12/04/2023 3:00 PM CDT Office Visit [facility] [address] [place] [address] Bandar Dash MD CV Vascular Est (1 month Follow up: s/p Right femoral endarterectomy with bovine patch 10/24/2023. US SHANE & aorta prior to OV) 12/04/2023 12:12 PM CDT - 12/04/2023 11:59 PM CDT Hospital Encounter [facility] [address] [place] [address] Linsey Andrew MD Cardiomyopathy, unspecified type (HC); Chronic chest pain with high risk for CAD; Claudication of both lower extremities (HC); PVD (peripheral vascular disease) with claudication (HC) 12/04/2023 Travel 11/30/2023 Telephone [facility] [address] [place] [address] Parisa Byrd PA FOLLOW UP (SORE ) 11/22/2023 Refill [facility] [address] [facility] [address] [place] [phone] Linsey Andrew MD Refill Request (Metoprolol Succinate) 11/21/2023 Refill [facility] [address] [place] [address] Parisa Byrd PA Refill Request (HYDROcodone-acetami nophen (5-325 mg/tablet)/) 11/20/2023 1:10 PM CDT Office Visit [facility] [address] [place] [address] Parisa Byrd PA Follow Up (Recheck wound and foot) 11/20/2023 Telephone [facility] [address] [place] [address] Parisa Byrd PA Medication Management (Medline Gelatein 20 High protein gelatin- 4 fluid ounce cups-Eat 1 serving (4 oz) daily. /) 11/20/2023 Travel 11/14/2023 Refill [facility] [address] [facility] [address] [place] [phone] Dov Willard MD Refill Request (Clopidogrel) 11/09/2023 1:30 PM CDT Office Visit [facility] [address] [facility] [address] [place] [address] Linsey Andrew MD Follow Up (F/u visit. Recent ER visit for R leg swelling./Pt reports feeling ok. /Discuss leg swelling in pain) 11/09/2023 Travel from Last 3 Months Immunizations Name Administration Dates Next Due COVID-19 vaccine ([employer]-Bio NTech 30mcg/0.3mL) 12YO+ BIVALENT ARIES MIRAMONTES 04/07/2022 COVID-19 vaccine (Pfizer-Bio NTech 30mcg/0.3mL) PF, [...] Date Smoking Tobacco: Every Day Cigarettes 0.3 31.1 Started: 01/10/1993 Smokeless Tobacco: Never Tobacco Cessation:Ready to Q uit: Yes; Counseling Given: Yes Comments:Less than a pack a day- 12/04/2023 Alcohol Use Standard Drinks/Week Comments Not Currently 0 (1 standard drink = 0.6 oz pur e alcohol) PHQ-2 Answer Date Recorded PHQ-2 TOTAL SCORE 4 01/23/2024 Social Connections Answer Date Recorded Frequency of [...] Sign Reading Time Taken Comments Blood Pressure 128/62 02/06/2024 2:33 PM CDT Pulse 74 02/06/2024 2:33 PM CDT Temperature 36.6 ??C (97.8 ??F) 02/06/2024 2:33 PM CD T Respiratory Rate 20 02/03/2024 11:55 AM CDT Oxygen Saturation 100% 02/06/2024 2:33 PM CDT Inhaled Oxygen Concentration - - Weight 46.7 kg (103 lb) 01/23/2024 1:43 PM CDT Height 157 cm (5' 1.81) 01/23/2024 1:43 PM CDT Body Mass Index 18.95 01/23/2024 1:43 PM CDT Plan of Treatment Upcoming Encounters Date Type Department Care Team (Late st Contact Info) Description 02/09/2024 4:00 AM CDT Home Care Visit [address] [address] Negra Blackwood, [place]OS[place] [address] [place] [address] 02/09/2024 1:00 PM CDT Home Care Visit [address] [address] [place] [address] [place] [address] 02/12/2024 1:00 AM CDT Home Care Visit [address] [address] Melinda Mahajan MSW [address] [place] [address] 02/12/2024 9:30 AM CDT Home Care Visit [address] [address] Nabila Walters 02/13/2024 4:00 AM CDT Home Care Visit [facility] [address] [place] [address] Tita Frederick RN [address] [place] [address] 02/15/2024 2:00 AM CDT Home Care Visit [address] [address] Parisa Arzola OT [address] [place] [address] 02/15/2024 9:00 AM CDT Home Care Visit [address] [address] Nabila Walters 02/16/2024 4:00 AM CDT Home Care Visit [address] [address] Tita Frederick RN [address] [place] [address] 02/19/2024 1:00 AM CDT Home Care Visit [address] [address] Nabila Walters 02/20/2024 4:00 AM CDT Home Care Visit [address] [address] Tita Frederick RN [address] [place] [address] 02/22/2024 1:00 AM CDT Home Care Visit [address] [address] Nabila Walters 02/22/2024 2:00 AM CDT Home Care Visit [address] [address] [place] [address] [place] [address] 02/27/2024 4:00 AM CDT Home Care Visit [address] [address] Tita Frederick RN [address] [place] [address] Health Maintenance Due Date Last Done Comments Fecal testing non-DNA (FIT,FOBT,iFOBT) for age 45-75 11/02/2022 11/02/2021 (Completed o [facility]), 11/29/2018 Medicare Wellness for age 65+ 11/03/2022 11/02/2021 Mammogram for age 45-75 11/09/2022 11/10/19, 01/23/2017, 09/10/2010 COVID-19 vaccine series ( season) 2023 04/07/2022, 03/11/2021, 10/12/2020, Additional history exists Influenza for age 65+ 03/03/2024 03/15/2023 , 04/07/2022, 03/23/2020, Additional history exists BMI (ht and wt on same day) for age 18+ 01/22/2025 01/23/2024, 11/09/2023, 10/23/2023, Additional history exists Depression screening for age 12+ 01/28/2025 01/29/2024, 01/25/2024, 01/25/2024, Additional history exists Tetanus booster 01/24/2028 01/23/2018, 10/23/2006 Lipids for age 45-75 01/22/2029 01/23/2024, 11/02/2021, 12/08/2020, Additional history exists Hepatitis C screening for ag e 18-79 Completed 01/04/2010 Tdap Completed 01/23/2018, 10/23/2006 Zoster (shingles) series for age 50+ Completed 10/19/2018, 08/20/2018 DEXA/DXA scan for age 65+ Completed 11/09/2021, Pneumococcal series for age 65+ Completed 04/07/2022, 01/23/2018, 03/05/1996 Medical Devices Implanted Type Area Machine Operator Hop Worker Device Identifier Shelf Expiration Date Model / Serial / Lot Tissue Pericardium 0.8x8cm Xenosure - [id number] Implanted:Qty: 1 on 10/24/2023 by Bandar Dash MD at [facility] Cv Implants Right: Femoral Artery [employer] 03/30/2029 0.8P8 / / [id number] Procedures Procedure Name Priority Date/Time Associated Diagnosis Comments CBC WITH AUTO DIFFERENTIAL Routine 01/23/2024 2:34 PM CDT Mild chronic anemia LIPID PANEL W REFLEX MEASURED LDL Routine 01/23/2024 2:34 PM CDT 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) COMP METABOLIC PANEL Routine 01/23/2024 2:34 PM CDT Elevated LFTs Hyponatremia CBC WITH AUTO DIFFERENTIAL Routine 01/23/2024 2:34 PM CDT Mild chronic anemia SCAN-RADIOLOGY REPORT 01/10/2024 12:00 AM CDT SCAN CORRESP-IMAGING 01/05/2024 7:21 PM CDT SCAN-RADIOLOGY REPORT 01/05/2024 12:00 AM CDT SCAN-CT INTERPRETATION 12:00 AM CDT SCAN-RADIOLOGY REPORT 01/05/2024 12:00 AM CDT SCAN-CT INTERPRETATION 12:00 AM CDT XR FOOT 3 VIEWS RIGHT Routine 12/05/2023 [...] chest pain with high risk for CAD XR MAMMO CASSIE BILAT SCREEN Routine 11/09/2021 3:31 PM CDT Visit for screening mammogram XR DXA BONE DENSITY 2 SITES AXIAL Routine 11/09/2021 3:30 PM CDT Osteoporosis, unspecified osteoporosis type, unspecified pathological fracture presence OCCULT BLOOD IFOBT STOOL Routine 11/29/2018 3:36 PM CDT Screening for colorectal cancer ANTI HCV Routine 01/04/2010 1:58 PM CDT Exposure to hepatitis C from Last 3 Months or Most Recently Relevant to Health Maintenance Results * (ABNORMAL) CBC WITH AUTO DIFFERENTIAL (01/23/2024 2:34 PM CDT) WHITE BLOOD COUNT 10.4 4.5 - 11.0 thou/cu mm 01/23/2024 3:09 PM CDT [facility] RED BLOOD COUNT 3.48(L) 4.00 - 5.20 mil/cu mm 01/23/2024 3:09 PM CDT [facility] HEMOGLOBIN 10.5(L) 12.0 - 16.0 g/dL 01/23/2024 3:09 PM CDT [facility] HEMATOCRIT 32.1(L) 33.0 - 51.0 % 01/23/2024 3:09 PM CDT [facility] MCV 92 80 - 100 fL 01/23/2024 3:09 PM CDT [facility] MCH 30.2 26.0 - 34.0 pg 01/23/2024 3:09 PM CDT [facility] MCHC 32.7 32.0 - 36.0 g/dL 01/23/2024 3:09 PM CDT [facility] RDW 12.6 11.5 - 15.5 % 01/23/2024 3:09 PM CDT [facility] PLATELET COUNT 558(H) 140 - 440 thou/cu mm 01/23/2024 3:09 PM CDT [facility] MPV 8.8 6.5 - 11.0 fL 01/23/2024 3:09 PM CDT [facility] % NEUT 66.0 % 01/23/2024 3:09 PM CDT [facility] % LYMPH 19.8 % 01/23/2024 3:09 PM CDT [facility] % MONO 10.9 % 01/23/2024 3:09 PM CDT [facility] % EOS 2.7 % 01/23/2024 3:09 PM CDT [facility] % BASO 0.6 % 01/23/2024 3:09 PM CDT [facility] ABSOLUTE NEUTROPHILS 6.9 1.7 - 7.0 thou/cu mm 01/23/2024 3:09 PM CDT [facility] ABSOLUTE LYMPHOCYTES 2.1 0.9 - 2.9 thou/cu mm 01/23/2024 3:09 PM CDT [facility] ABSOLUTE MONOCYTES 1.1(H) <0.9 thou/cu mm 01/23/2024 3:09 PM CDT [facility] ABSOLUTE EOSINOPHILS 0.3 <0.5 thou/cu mm 01/23/2024 3:09 PM CDT [facility] ABSOLUTE BASOPHILS 0.1 <0.3 thou/cu mm 01/23/2024 3:09 PM CDT [facility] Blood BLOOD SPECIMEN / Unknown Venipuncture / Unknown 01/23/2024 2:34 PM CDT 01/23/2024 3:03 PM CDT Parisa REESE HEMATOLOGY [facility] [address] [place] [address], * LIPID PANEL W REFLEX MEASURED LDL (01/23/2024 2:34 PM CDT) CHOLESTEROL,TOTAL 144 100 - 199 mg/dL 01/24/2024 1:32 AM CDT [facility] [employer] Comment: Cholesterol, Total Reference Ranges Desirable <200 mg/dL Borderline 200-239 mg/dL High >=240 mg/dL TRIGLYCERIDES 124 <150 mg/dL 01/24/2024 1:32 AM CDT [facility] HDL CHOLESTEROL 61 >40 mg/dL 1:32 AM CDT [facility] NON-HDL CHOLESTEROL 83 <145 mg/dl 01/24/2024 1:32 AM CDT [facility] CHOL/HDL RATIO 2.36 <4.50 01/24/2024 1:32 AM CDT [facility] LDL CHOLESTEROL 58 <=130 mg/dL 01/24/2024 1:32 AM CDT [facility] VLDL CHOLESTEROL 25 <=30 mg/dL 01/24/2024 1:32 AM CDT [facility] PROVIDER ORDERED STATUS RANDOM 01/24/2024 1:32 AM CDT [facility] Blood BLOOD SPECIMEN / Unknown Venipuncture / Unknown 01/23/2024 2:34 PM CDT 01/23/2024 2:51 PM CDT Parisa [facility] [address] [place] [address] * (ABNORMAL) COMP METABOLIC PANEL (01/23/2024 2:34 PM CDT) SODIUM 126(L) 136 - 145 mmol/L 01/24/2024 2:44 AM T [facility] POTASSIUM 5.0 3.5 - 5.1 mmol/L 01/24/2024 2:44 AM T [facility] CHLORIDE 91(L) 98 - 107 mmol/L 01/24/2024 2:44 AM CDT [facility] CO2,TOTAL 20(L) 22 - 29 mmol/L 01/24/2024 2:44 AM T [facility] ANION GAP 15 5 - 18 01/24/2024 2:44 AM T [facility] GLUCOSE 168(H) 70 - 99 mg/dL 01/24/2024 2:44 AM T [facility] CALCIUM 8.8 8.8 - 10.2 mg/dL 01/24/2024 2:44 AM T [facility] BUN 16 8 - 23 mg/dL 01/24/2024 2:44 AM T [facility] CREATININE 0.89 0.50 - 0.90 mg/dL 01/24/2024 2:44 AM [facility] BUN/CREAT RATIO 18 10 - 20 2:44 AM [facility] eGFR 71(L) >90 mL/min/1.7 3m2 01/24/2024 2:44 AM T [facility] Comment:As of 2021, eG FR is calculated by the CKD-EPI creatinine equation without race adjustment. ??eGFR can be influenced by muscle mass, exercise, and diet. ??The reported eGFR is an estimation only and is only applicable if the renal function is stable. ALBUMIN 3.6(L) 4.0 - 4.9 g/dL 01/24/2024 2:44 AM CDT [facility] PROTEIN,TOTAL 7.1 6.0 - 8.0 g/dL 01/24/2024 2:44 AM CDT [facility] BILIRUBIN,TOTAL 0.2 0.0 - 1.2 mg/dL 01/24/2024 2:44 AM CDT [facility] ALK PHOSPHATASE 404(H) 35 - 104 IU/L 01/24/2024 2:44 AM CDT [facility] ALT (SGPT) 15 10 - 35 IU/L 01/24/2024 2:44 AM CDT [facility] AST (SGOT) 32 10 - 35 IU/L 01/24/2024 2:44 AM CDT [facility] Blood BLOOD SPECIMEN / Unknown Venipuncture / Unknown 01/23/2024 2:34 PM CDT 01/23/2024 2:51 PM CDT Parisa REESE CHEMISTRY [facility] [address] [place] [address], * SCAN-RADIOLOGY REPORT (01/10/2024 12:00 AM CDT) Only the most recent of3 resultswithin the time period is included. Anatomical Region Laterality Modality Other Scanner OTHER * SCAN CORRESP-IMAGING (01/05/2024 7:21 PM CDT) Anatomical Region Laterality Modality Other Scanner OTHER * SCAN-CT INTERPRETATION (01/05/2024 12:00 AM CDT) Only the most recent of2 resultswithin the time period is included. Anatomical Region Laterality Modality Other Scanner OTHER * XR FOOT 3 VIEWS RIGHT (12/05/2023 [...] ULTRASOUND REPORT MARCO A JONES Accession#: ?? [id number] : ?[id number] Study Date: ?? 12/04/2023 1:59:17 PM Age: ?68 years ?? Tech: ? CAR Gender: F ?Referring MD: BANDAR DASH Site: [facility] Study performed: ?Lower extremity duplex [...] Phasicity ? +--------+ + + + +--------+-----+ CLIENT SERVICE ASSOCIATE PRX ? 138 ? multiphasic ? +--------+ + + + +--------+-----+ CLIENT SERVICE ASSOCIATE DST ? 52 ? multiphasic ? +--------+ [...] multiphasic ? +--------+ + + + +--------+-----+ MEAT COOLER DST ? 41 ? monophasic ? +--------+ + + + +--------+-----+ DPA ? 31 ? monophasic ? +--------+ + + + +--------+-----+ + + + + LEFT ? Velocity cm/s Phasicity ?? + + + + CLIENT SERVICE ASSOCIATE PRX ? 96 ? multiphasic + + + + CLIENT SERVICE ASSOCIATE DST ? 88 ? multiphasic + + [...] 43 ? multiphasic + + + + MEAT COOLER DST ? 43 ? multiphasic + + [...] ? Index +-----+ +--------+ +-----+ 0.87 ?100 ?MEAT COOLER ?110 ? 0.96 +-----+ +--------+ +-----+ 0.97 ?111 ?DPA ?108 ? 0.94 +-----+ +--------+ +-----+ 0.46 ? 53 ? Digit 1 ?63 ? 0.55 +-----+ +--------+ +-----+ Vipin Aggarwal MD. Electronically signed on 12/04/2023 3:41:37 PM This study was performed and interpreted by a service accredited by the Intersocietal Accreditation Commission (IAC/Vascular), [email or web address] Report generated by [facility]. ??Final ?? Procedure Note Vipin Aggarwal MD - 12/04/2023 VASCULAR ULTRASOUND REPORT MARCO A JONES : 1955 Study Date: 12/04/2023 1:59:17 PM Age: 68 years Tech: CAR Gender: F Referring MD: BANDAR DASH Site: [facility] Study performed: Lower extremity duplex [...] Phasicity Phasicity +--------+ + + + +--------+-----+ CLIENT SERVICE ASSOCIATE PRX 138 multiphasic +--------+ + + + +--------+-----+ CLIENT SERVICE ASSOCIATE DST 52 multiphasic +--------+ + + + [...] 68 multiphasic +--------+ + + + +--------+-----+ MEAT COOLER DST 41 monophasic +--------+ + + + +--------+-----+ DPA 31 monophasic +--------+ + + + +--------+-----+ + + + + LEFT Velocity cm/s Phasicity + + + + CLIENT SERVICE ASSOCIATE PRX 96 multiphasic + + + + CLIENT SERVICE ASSOCIATE DST 88 multiphasic + + + + PFA 64 multiphasic + + + + SFA PRX 112 multiphasic + + + + SFA PRX MID 100 multiphasic + + + + SFA MID 82 multiphasic + + + + SFA DST 134 multiphasic + + + + OBDULIA PRX 54 multiphasic + + + + OBDULIA DST 43 multiphasic + + + + MEAT COOLER DST 43 multiphasic + + + + DPA 25 multiphasic + + + + Criteria: Stenosis V. Ratio Mild <50% <2.0 Moderate 50-74% > or = 2.0 Severe 75-99% > or = 4.0 Occluded 100% no detectable flow Pressures +-----+ +--------+ +-----+ RIGHT (mmHg) LEFT (mmHg) +-----+ +--------+ +-----+ Index 115 Brachial 114 Index +-----+ +--------+ +-----+ 0.87 100 MEAT COOLER 110 0.96 +-----+ +--------+ +-----+ 0.97 111 DPA 108 0.94 +-----+ +--------+ +-----+ 0.46 53 Digit 1 63 0.55 +-----+ +--------+ +-----+ Vipin Aggarwal MD. Electronically signed on 12/04/2023 3:41:37 PM This study was performed and interpreted by a service accredited by theIntersocietal Accreditation Commission (IAC/Vascular),[email or web address] Report generated by [facility]. Final Bandar Dash MD US * US AORTA ILIACS IVC WITH DUPLEX (12/04/2023 1:21 PM CDT) Anatomical Region Laterality Modality AORTA, Abdomen Ultrasound 12/04/2023 1:17 PM CDT Narrative 12/04/2023 3:32 PM CDT [facility] ULTRASOUND REPORT MARCO A JONES Accession#: ?? [id number] : ?1955 Study Date: ?? 12/04/2023 1:17:26 PM Age: ?68 years ?? Tech: ? CAR Gender: F ?Referring MD: BANDAR DASH Site: [facility] Study performed: ?Aorta Indication for [...] Accreditation Commission (IAC/Vascular), [email or web address]/vascular Report generated by [employer]. ??Final ?? Procedure Note Vipin Aggarwal MD - 12/04/2023 VASCULAR ULTRASOUND REPORT MARCO A JONES : 1955 Study Date: 12/04/2023 1:17:26 PM Age: 68 years Tech: CAR Gender: F Referring MD: BANDAR DASH Site: [facility] Study performed: Aorta Indication for [...] theIntersocietal Accreditation Commission (IAC/Vascular),[email or web address]/vascular Report generated by [employer]. Final Bandar Luis Dash MD US * MR CARDIAC WWO (12/04/2023 8:06 AM CDT) Anatomical Region Laterality Modality HEART, THORAX Magnetic Resonan ce 12/04/2023 6:32 AM CDT Narrative 12/04/2023 8:46 AM CDT ?[facility] ? CMR Report ??MRN: ?[id number] ?Name: ? MARCO A JONES ?: ? 1955-Dec-21 ?Scan Date: ?Accession Number: ?[id number] ?Status: ?Final ? Electronically signed by Andrew [...] ? Apical Lateral ? Normal/Hyper None ? Noti ? Normal/Hyper None ? + + + [...] SCAN INFO ===== GENERAL ----- --- ?SCANNER ?SOIL AND PLANT SCIENTIST: ??SIEMENS ?MODEL: ??Aera ?CONTRAST AGENT ?TYPE: ??Gadavist ?GD CONCENTRATION: ??1.0 M ?SETUP ?REASON(S) FOR SCAN: ??Ischemic vs nonischemic ?REFERRING PHYSICIAN: ??LINSEY ANDREW ?ATTENDING PHYSICIAN: ??LINSEY ANDREW BILLING ===== Patient Account ?[id number] ICD10 Codes ?I42.9, R07.9, G89.29, Z91.89 Report generated by [employer], a product of [employer] Procedure Note Andrew Thompson MD - 12/04/2023 [facility] CMR Report Name: MARCO A JONES : Scan Date: Accession Number: [id number] Status: Final Electronically signed by Andrew Thompson [...] Inferior Normal/Hyper None Apical Lateral Normal/Hyper None Noti Normal/Hyper None + + + + +----- [...] SCAN INFO ===== GENERAL ----- --- SCANNER SOIL AND PLANT SCIENTIST: SIEMENS MODEL: Aera CONTRAST AGENT TYPE: Gadavist GD CONCENTRATION: 1.0 M SETUP REASON(S) FOR SCAN: Ischemic vs nonischemic REFERRING PHYSICIAN: LINSEY ANDREW ATTENDING PHYSICIAN: LINSEY ANDREW BILLING ===== Patient Account [id number] ICD10 Codes I42.9, R07.9, G89.29, Z91.89 Report generated by [employer], a product of [employer] Linsey Andrew MD MR * XR MAMMO CASSIE BILAT SCREEN (11/09/2021 [...] care provider. XR MAMMO CASSIE BILAT SCREEN [[id number]] CLINICAL HISTORY: ??This is an asymptomatic 66 y.o. patient. INDICATION FOR EXAM: Mammogram Screening. TECHNIQUE: CC & MLO views were obtained. ??This study was evaluated with the assistance of Computer-Aided Detection. Breast Tomosynthesis was used in interpretation. COMPARISON FILM: Yes 01/23/17 [place] 09/10/10 [facility] FINDINGS: ??The breasts are extremely dense, [...] Alendronate (Fosamax) medication treatment. Destiny Medellin PA-C [facility] 11/15/2021 Narrative 11/15/2021 8:42 AM CDT For Patients: Results are automatically released to your [facility] (Field Agent) account once available, in compliance with federal regulations. This means that you may see your results before your provider has had a chance to review them. Please allow 2-3 business days for your provider to comment on the results. XR DXA Bone Mineral Density (BMD) EXAM LOCATION: [address] [address] PATIENT NAME: Marco A Jones DATE OF [...] two scanners are made by the same cover stitch machine operator. PROCEDURE: Dual-energy x-ray absorptiometry performed with routine [...] -2.5 SD David Sparks MD DEXA * OCCULT BLOOD IFOBT STOOL (11/29/2018 3:36 PM CDT) [facility] Signature STOOL BLOOD ,IFOBT Negative Negative 12/07/2018 9:42 AM CDT [facility] Stool STOOL SPECIMEN / Unknown Non-Blood / Unknown 11/29/2018 3:36 PM CDT 12/06/2018 3:36 PM CDT David Sparks MD LABORATORY [facility] [address] [place] [address], * ANTI HCV (01/04/2010 1:58 PM CDT) ANTI HCV Non-reacti ve [facility] Blood specimen (specimen) BLOOD SPECIMEN / Unknown 01/04/2010 1:58 PM CDT 01/04/2010 1:46 PM CDT David Sparks MD SEND OUTS [facility] INTERNAL ZIP [address] [place] [address] from Last 3 Months or Most Recently [...] Preferences, Provider to review later Care Teams Electrical Experimental Mechanic Relationship Specialty Start Date End Date Parisa Byrd PA [address] [place] [address] PCP - General Physician Junior Account Manager 05/16/[address] [address] 02/04/23 Raegan Dumont, AUGUST [address] [place] [address] Occupational Therapy 05/05/23
--- OUTSIDE RECORDS SUMMARY | 2024-02-08 14:35 | XMS_ITS | Encounter Summary ---
Author Organization [facility] Address [address] [place] [address] Care Team Providers Care Wine And Spirits Clerk Name Role Phone Elsewhere, Pcp Primary Care Provider Unavailabl e Reason for Visit * Reason Comments Skin Problem Presents with concer ns for leg wounds. States she smoked too much thc and she is feeling different than usual and needs to get checked out Encounter Details Date Type Department Care Team (Late st Contact Info) Description 12/23/2023 6:51 AM CDT - 12/23/2023 8:33 AM CDT Emergency [facility] [address] [place] [phone] Trent Davila, HANG, C.N.P., M.S.N. [address] [place] [phone] Abrasion Leg Initial Right (Primary Dx); Wound [...] be sent through Care Everywhere. * Abrasion (South African) * Substance Use Disorder (South African) documented in this encounter Medications at Time [...] encounter ED Notes * Trent Davila N, GATE SERVICES SUPERVISOR, C.N.P., M.S.N. - 12/23/2023 6:58 AM CDT [...] frye that has been follow-up with the [facility]. Her last appointmen t was [...] Glucose, POCT (12/23/2023 7:50 AM CDT) Pathologist [facility] Glucose, POCT, B 182(H) 70 - 140 mg/dL 12/23/2023 7:50 AM CDT CNFL Blood 12/23/2023 7:50 AM CDT 12/23/2023 7:56 AM CDT Generic [facility] LAB POCT ORDERABLES- MANUAL [facility] [address] [place] [address], [facility] CNFL [facility] in [address] [address] documented in this encounter Visit Diagnoses Diagnosis Abrasion Leg Initial Right- Primary Wound Lower Leg Open Initial Left Abuse Cannabis documented in this encounter Care Teams Wine And Spirits Clerk Relationship Specialty Start Date End Date Elsewhere, Pcp PCP - General Family Medicine 03/11/21 documented as of this encounter
--- OUTSIDE RECORDS SUMMARY | 2024-02-08 14:35 | XMS_ITS | Encounter Summary ---
Author Organization [facility] Address [address] [place] [address] Care Team Providers Care Industrial Specialist Name Role Phone Elsewhere, Pcp Primary [...] on filedocumented in this encounter Care Teams Industrial Specialist Relationship Specialty Start Date End Date Elsewhere, Pcp PCP - General Family Medicine 03/11/21 documented as of this encounter
--- OUTSIDE RECORDS SUMMARY | 2024-02-08 14:35 | XMS_ITS | Clinical Summary ---
Author Organization [facility] Address [address] [place] [address] Care Team Providers Care Bank Teller Name Role Phone Elsewhere, Pcp Primary Care Provider Unavailabl e Source Comments Patient records contain information from all sites at [facility]. For routine questions regarding patient records, call [phone] during business hours, M-F 8:00 AM - 5:00 PM Central Time. Record requests for emergency care only can be directed to [phone] at any time.[facility] Allergies Active Allergy Reactions Criticality Noted Date [...] Right 10/31/2023 Atherosclerotic Heart Diseas e Of [place] Coronary Artery Without Angina Pectoris 09/15/2022 Major Depressive Disorder, Recurrent, Unspecifie d 08/03/2021 Fracture Radius Colles Closed Initial Right 05/03 Overview (05/20/2021): Added automatically from request for surgery [id number] Osteoporosis 01/23/2018 Hypertension NOS Diabetes Mellitus Type 2 Encounters Date Type Department Care Team Description 12/23/2023 6:51 AM CDT - 12/23/2023 8:33 AM CDT Emergency [facility] [address] [place] [address] [place] [phone] Trent Davila, MARK UP DESIGNER, C.N.P., M.S.N. Abrasion Leg Initial Right (Primary Dx); Wound Lower Leg Open Initial Left; Abuse Cannabis Discharge Disposition: Home or Self Care 12/23/2023 5:15 AM CDT Ancillary Procedure Department of Emergency Medicine from Last 3 Months Immunizations Name Administration [...] 1955 Dilated Eye Exam 1955 FIT 1955 Hepatitis C Screening 1955 Urine Albumin 1955 Hepatitis B Vaccines (1 of 3 - Risk 3-dose series) 2016 Mammogram 11/09/2022 11/09/2021, 11/09/2021 Office Visit for Blood Press ure Check / Re-check 12/16/2022 09/15/2022 COVID-19 Vaccine (5 - 2022-2 4 season) 2023 04/07/2022, 03/11/2021, 10/12/2020, Additional history exists Fall Risk Screen (Annual) 07/03/2023 Tobacco Cessation counseling 09/16/2023 09/15/2022 Hemoglobin A1C 12/22/2023 09/21/2023, 08/0 08/2022, 01/10/2023, Additional history exists Influenza Vaccine (#1) 2024 , 04/07/2022, 03/23/2020, [...] 01/23/2018, 03/05/1996 Medical Devices Implanted Type Area Safe Deposit Box Rental Clerk Device Identifier Shelf Expiration Date Model / Serial / Lot Plt Wrst Dvr Rt 3h 24.4x51.3 - [id number] Implanted:Qty : 1 on 05/26/2021 by Jorden Tineo M.D. at [facility] Hardware e.g. pins/screws/ rods [employer] [id number] / / 07.05.20. [address] S[address] S[address]l 1.6x127 - [id number] Implanted:Qty : 1 on 05/26/2021 by Jorden Tineo M.D. at [facility] Hardware e.g. pins/screws/ rods [employer] [id number] / 07.05.20. 319 Scrw Dvr Fthrd 3.5x12 - [id number] Implanted:Qty : 2 on 05/26/2021 by Jorden Tineo M.D. at [facility] Hardware e.g. pins/screws/ rods [employer] [id number] / 07.05.20. 319 Peg Fix Dvr Pthrd Lng 2.5x22 - [id number] Implanted:Qty : 3 on 05/26/2021 by Jorden Tineo M.D. at [facility] Hardware e.g. pins/screws/ rods Right: Wrist [employer] [id number] / 07.05.20. 319 Peg Fix Dvr Pthrd Lng 2.5x16 - [id number] Implanted:Qty : 1 on 05/26/2021 by Jorden Tineo M.D. at [facility] Hardware e.g. pins/screws/ rods Right: Wrist [employer] [id number] / 07.05.20. 319 Peg Fix Dvr Smth Lng 2.0x18 - [id number] Implanted:Qty : 3 on 05/26/2021 by Jorden Tineo M.D. at [facility] Hardware e.g. pins/screws/ rods Right: Wrist [employer] [id number] / / 07.05.20. 319 Scrw Dvr Fthrd 3.5x13 - [id number] Implanted:Qty : 1 on 05/26/2021 by Jorden Tineo M.D. at [facility] Hardware e.g. pins/screws/ rods [employer] [id number] / 07.05.20. 319 Procedures Procedure Name Priority Date/Time Associated Diagnosis Comments GLUCOSE POCT, B Routine 12/23/2023 7:50 AM CDT EMERGENCY DEPARTMENT IMAGE EXAM Routine 12/23/2023 5:15 AM CDT BASIC METABOLIC PANEL, S/P Routine 09/03/2022 11:14 AM OCCUPANCY SPECIALIST Shortness Of Breath from Last 3 Months or Most Recently Relevant to Health Maintenance Results * (ABNORMAL) Glucose, POCT (12/23/2023 7:50 AM CDT) Glucose, POCT, B 182(H) 70 - 140 mg/dL 12/23/2023 7:50 AM CDT CNFL Blood 12/23/2023 7:50 AM CDT 12/23/2023 7:56 AM CDT Generic [facility] LAB POCT ORDERABLES- MANUAL [facility] [address] [place] [address], [facility] CNFL [facility] [place] [address] * Leg-Emergency Department Image Exam (12/23/2023 5:15 AM CDT) 12/23/2023 5:14 AM CDT Narrative IIMS - 12/23/2023 7:17 AM CDT This order has been created and auto-finalized to support the import of images acquired without order. The clinical documentation to support these images can be found on the encounter that produced images. Provider Not In System IMG NON RAD IMAGI NG PROCEDURES Performing Organization Address City/[facility]/ZIP Co de Phone Number IIMS NA * (ABNORMAL) Basic Metabolic Panel (09/03/2022 11:14 AM OCCUPANCY SPECIALIST) Potassium, P 4.4 3.6 - 5.2 mmol/L 09/03/2022 11:34 AM OCCUPANCY SPECIALIST RDWG Sodium, P 137 135 - 145 mmol/L 09/03/2022 11:34 AM OCCUPANCY SPECIALIST RDWG Chloride, P 99 98 - 107 mmol/L 09/03/2022 11:34 AM OCCUPANCY SPECIALIST RDWG Bicarbonate, P 28 22 - 29 mmol/L 09/03/2022 11:34 AM OCCUPANCY SPECIALIST RDWG Anion Gap, P 10 7 - 15 09/03/2022 11:34 AM OCCUPANCY SPECIALIST RDWG BUN (Blood Urea Nitrogen), P 28(H) 6 - 21 mg/dL 09/03/2022 11:34 AM OCCUPANCY SPECIALIST RDWG Creatinine 1.00 0.59 - 1.04 mg/dL 09/03/2022 11:34 AM OCCUPANCY SPECIALIST RDWG Estimated GFR (eGFR) 62 >=60 mL/min/BSA 09/03/2022 11:34 AM OCCUPANCY SPECIALIST RDWG Comment: Estimated GFR calculated using the 2020 CKD_EPI creatinine equation. Calcium, Total, P 9.3 8.8 - 10.2 mg/dL 09/03/2022 11:34 AM OCCUPANCY SPECIALIST RDWG Glucose, P 127 70 - 140 mg/dL 09/03/2022 11:34 AM OCCUPANCY SPECIALIST RDWG Blood (Blood, Venous) 09/03/2022 11:14 AM OCCUPANCY SPECIALIST 09/03/2022 11:15 AM OCCUPANCY SPECIALIST Lexie Robles APRN, C.N.P., D.N.P. L AB BLOOD ADD-ON [facility] [address] [place] [address], [facility] RDWG [facility] [place] [address] [place] [address] from Last 3 Months or Most Recently Relevant to Health Maintenance Care Teams Bank Teller Relationship Specialty Start Date End Date Elsewhere, Pcp PCP - General Family Medicine 03/11/21
--- OUTSIDE RECORDS SUMMARY | 2024-02-08 14:35 | XMS_ITS | Encounter Summary ---
Author Organization [facility] Address [address] [place] [address] Care Team Providers Care Health Care Specialist Name Role Phone Elsewhere, Pcp Primary Care Provider Unavailabl e Encounter Details Date Type Department Care Team (Latest Contact Info) Description 09/18/2023 Clinical Communication Department of Rehabilitation Services in [address] [phone] Felipe Saravia, P.TTam [address] [place] [phone] Social History Tobacco Use Types Packs/Day Years [...] filedocumented in this encounter Care Teams Health Care Specialist Relationship Specialty Start Date End Date Elsewhere, Pcp PCP - General Family Medicine 03/11/21 documented as of this encounter
--- OUTSIDE RECORDS SUMMARY | 2024-02-08 14:35 | XMS_ITS | Encounter Summary ---
Author Organization [facility] Address [address] [place] [address] Care Team Providers Care Railroad Auditor Name Role Phone Elsewhere, Pcp Primary Care Provider Unavailabl e Reason for Visit * Reason Comments Joint Swelling Knee swelling to rig ht. 02/09 pain Encounter Details Date Type Department Care Team (Late st Contact Info) Description 10/31/2023 1:36 PM CDT - 10/31/2023 4:28 PM CDT Emergency [facility] [address] [place] [phone] Isidoro Parker APRN, C.N.P., D.N.P. [address] [place] [phone] Swelling Leg Right (Primary Dx) [...] on this leg. Thank you for utilizing [facility] for your care! documented in [...] Per chart review, recent surgical procedure at [facility]. Please see the hospital discharge below. BRIEF [...] 03 with imaging. History provided by: Patient court interpreter needed/used: no REVIEW OF SYSTEMS Constitutional: [...] Recurrent, Unspecified (HCC) Atherosclerotic Heart Disease Of [place] Coronary Artery Without Angina Pectoris Swelling Leg [...] FIXATION WRIST-Right; Surgeon: Jorden Tineo M.D.; Location: [facility] OR Family Reviewed in Medical Record [...] to peripheral arterial disease. This happened at [facility]. She states she woke up this morning [...] with vascular surgery tomorrow. Isidoro Parker, DNP, RESTAURANT ASSISTANT, FIBER MACHINE TENDER-C, AGACNP-BC, ENP-C Emergency Medicine Isidoro Parker APRN, [...] and management can be found on the [employer] site. Link [email or web address] [email or web address] Procedure Note Pati Blankenship M.D. - 10/31/2023 [...] thrombosis and management can be found on theAskMaREACH HealthExpert site. [email or web address] -[email or web address] 1725 IMPRESSION: Negative for acute [...] Right documented in this encounter Care Teams Railroad Auditor Relationship Specialty Start Date End Date Elsewhere, Pcp PCP - General Family Medicine 03/11/21 documented as of this encounter
--- OUTSIDE RECORDS SUMMARY | 2024-02-08 14:35 | XMS_ITS ---
Author Organization [facility] Address [address] [place] [address] Care Team Providers Care Active Directory Engineer Name Role Phone Unavailable Unavailable Unavailable Surgery Details Not on file Complications Check Surgery Details section. Procedure Estimated Blood Loss Check Surgery Details section. Procedure Findings Check Surgery Details section. Procedure Specimens Taken Check Surgery Details section.
--- OUTSIDE RECORDS SUMMARY | 2024-02-08 14:35 | XMS_ITS | Referral Summary ---
Author Organization [facility] Address [address] [place] [address] Care Team Providers Care Filtration Operator Name Role Phone Elsewhere, Pcp Primary Care Provider Unavailabl e Source Comments Patient records contain information from all sites at [facility]. For routine questions regarding patient records, call [phone] during business hours, M-F 8:00 AM - 5:00 PM Central Time. Record requests for emergency care only can be directed to [phone] at any time.[facility] Encounters Date Type Department Care Team Description 12/23/2023 5:15 AM CDT Ancillary Procedure Department of Emergency Medicine 12/23/2023 6:51 AM CDT - 12/23/2023 8:33 AM CDT Emergency [facility] [address] [place] [phone] Trent Davila, HANG, C.N.P., M.S.N. Abrasion Leg Initial Right (Primary Dx); Wound Lower Leg Open Initial Left; Abuse Cannabis Discharge Disposition: Home or Self Care from [...] Right 10/31/2023 Atherosclerotic Heart Diseas e Of [place] Coronary Artery Without Angina Pectoris 09/15/2022 Major Depressive Disorder, Recurrent, Unspecifie d 08/03/2021 Fracture Radius Colles Closed Initial Right 05/03 Overview (05/20/2021): Added automatically from request for surgery [id number] Osteoporosis 01/23/2018 Hypertension NOS Diabetes Mellitus Type [...] on file Medical Devices Implanted Type Area Sole Ruffer Device Identifier Shelf Expiration Date Model / Serial / Lot Plt Wrst Dvr Rt 3h 24.4x51.3 - [id number] Implanted:Qty : 1 on 05/26/2021 by Jorden Tineo M.D. at [facility] Hardware e.g. pins/screws/ rods [employer] [id number] / / 07.05.20. [address] S[address] Sngl 1.6x127 - [id number] Implanted:Qty : 1 on 05/26/2021 by Jorden Tineo M.D. at [facility] Hardware e.g. pins/screws/ rods [employer] [id number] / / 07.05.20. 319 Scrw Dvr Fthrd 3.5x12 - [id number] Implanted:Qty : 2 on 05/26/2021 by Jorden Tineo M.D. at [facility] Hardware e.g. pins/screws/ rods [employer] [id number] / / 07.05.21. 319 Peg Fix Dvr Pthrd Lng 2.5x22 - [id number] Implanted:Qty : 3 on 05/26/2021 by Jorden Tineo M.D. at [facility] Hardware e.g. pins/screws/ rods Right: Wrist [employer] [id number] / / 07.05.21. 319 Peg Fix Dvr Pthrd Lng 2.5x16 - [id number] Implanted:Qty : 1 on 05/26/2021 by Jorden Tineo M.D. at [facility] Hardware e.g. pins/screws/ rods Right: Wrist [employer] [id number] / 07.05.20. 319 Peg Fix Dvr Smth Lng 2.0x18 - [id number] Implanted:Qty : 3 on 05/26/2021 by Jorden Tineo M.D. at [facility] Hardware e.g. pins/screws/ rods Right: Wrist [employer] [id number] / / 07.05.20. 319 Scrw Dvr Fthrd 3.5x13 - [id number] Implanted:Qty : 1 on 05/26/2021 by Jorden Tineo M.D. at [facility] Hardware e.g. pins/screws/ rods [employer] [id number] / / 07.05.20. 319 Procedures Procedure Name Priority Date/Time Associated Diagnosis Comments GLUCOSE POCT, B Routine 12/23/2023 7:50 AM CDT EMERGENCY DEPARTMENT IMAGE EXAM Routine 12/23/2023 5:15 AM CDT BASIC METABOLIC PANEL, S/P Routine 09/03/2022 11:14 AM TELEVISION CAMERAMAN Shortness Of Breath from Last 3 Months or Most Recently Relevant to Health Maintenance Results * (ABNORMAL) Glucose, POCT (12/23/2023 7:50 AM CDT) Glucose, POCT, B 182(H) 70 - 140 mg/dL 12/23/2023 7:50 AM CDT CNFL Blood 12/23/2023 7:50 AM CDT 12/23/2023 7:56 AM CDT Generic [facility] POCT ORDERABLES- MANUAL [facility] [address] [place] [address], [facility] CNFL [facility] [place] [address] * Leg-Emergency Department Image Exam (12/23/2023 5:15 [...] RAD IMAGI NG PROCEDURES Performing Organization Address City/[facility]/ZIP Co de Phone Number IINY NA * (ABNORMAL) Basic Metabolic Panel (09/03/2022 11:14 AM TELEVISION CAMERAMAN) Potassium, P 4.4 3.6 - 5.2 mmol/L 09/03/2022 11:34 AM TELEVISION CAMERAMAN RDWG Sodium, P 137 135 - 145 mmol/L 09/03/2022 11:34 AM TELEVISION CAMERAMAN RDWG Chloride, P 99 98 - 107 mmol/L 09/03/2022 11:34 AM TELEVISION CAMERAMAN RDWG Bicarbonate, P 28 22 - 29 mmol/L 09/03/2022 11:34 AM TELEVISION CAMERAMAN RDWG Anion Gap, P 10 7 - 15 09/03/2022 11:34 AM TELEVISION CAMERAMAN RDWG BUN (Blood Urea Nitrogen), P 28(H) 6 - 21 mg/dL 09/03/2022 11:34 AM TELEVISION CAMERAMAN RDWG Creatinine 1.00 0.59 - 1.04 mg/dL 09/03/2022 11:34 AM TELEVISION CAMERAMAN RDWG Estimated GFR (eGFR) 62 >=60 mL/min/BSA 09/03/2022 11:34 AM TELEVISION CAMERAMAN RDWG Comment: Estimated GFR calculated using the 2020 CKD_EPI creatinine equation. Calcium, Total, P 9.3 8.8 - 10.2 mg/dL 09/03/2022 11:34 AM TELEVISION CAMERAMAN RDWG Glucose, P 127 70 - 140 mg/dL 09/03/2022 11:34 AM TELEVISION CAMERAMAN RDWG Blood (Blood, Venous) 09/03/2022 11:14 AM TELEVISION CAMERAMAN 09/03/2022 11:15 AM TELEVISION CAMERAMAN Lexie Robles APRN, C.N.P., D.N.P. L AB BLOOD ADD-ON [facility] [address] [place] [address], [facility] RDWG [facility] [place] [address] [place] [phone] from Last 3 Months or Most Recently Relevant to Health Maintenance Care Teams Filtration Operator Relationship Specialty Start Date End Date Elsewhere, Pcp PCP - General Family Medicine 03/11/21
== END 2024-02-08 14:33 | disposition home or self-care (01) ==
LOC: WOUND 14:32
PROVIDERS: PCP Physician Assistant; Visit Provider Nurse Practitioner Family
DX: E10.622 Type 1 diabetes mellitus with other skin ulcer (principal); I73.9 Peripheral vascular disease, unspecified; L97.828 Non-pressure chronic ulcer of other part of left lower leg with other specified severity; Z79.4 Long term (current) use of insulin
CPT/HCPCS: 97597